=== PATIENT | female | born 1960 | race Caucasian/White ===

== ENCOUNTER 2017-01-24 11:58 | Emergency (ER) | payer MEDICARE, OTHER ==
[2017-01-24 12:07] VITALS: RESP 18
--- NOTE | 2017-01-24 12:19 | ED ---
Back Pain HPI - General Chief Complaint: Back Pain/Injury Stated Complaint: syncope,back pain Time Seen by Provider: 01/24/17 12:08 Source: patient, RN notes reviewed - History of Present Illness Initial Comments: 56 yo female presents to the ER with cc of back pain and syncope. Patient states that over the last week she's had 4 syncopal episodes. Patient states she'll feel herself if lightheaded and she tries to brace herself but she has passed out to the point that she said her head. Patient states that due to the falls or chronic back pain and neck pain has also flared up. Patient states she does have a mild headache as well. Patient states there is no chest pain or shortness of breath before this falls. Patient states it just lightheadedness and then she passes out. Patient states she's been eating and drinking well there is been no nausea or vomiting. Patient states that she does suffer from chronic back pain she takes Percocet for this. Patient states that she feels as if this Is not like her typical back pain is just flared up. Patient states she was concerned due to her symptoms so she thought that she should be evaluated. Patient denies any recent fever, chills, shortness of breath, chest pain, abdominal pain, nausea vomiting, numbness or tingling, dysuria or hematuria, constipation or diarrhea, visual changes, or any other current symptoms. - Related Data Home Medications Medication Instructions Recorded Confirmed ALPRAZolam [Xanax] 2 mg PO TID PRN 01/24/17 01/24/17 ARIPiprazole [Abilify] 15 mg PO HS 01/24/17 01/24/17 Albuterol Inhaler [Ventolin Hfa 1 - 2 puff INHALATION RT-Q6H PRN 01/24/17 Inhaler] Amitriptyline HCl [Elavil] 50 mg PO HS 01/24/17 01/24/17 Atorvastatin Calcium [Lipitor] 10 mg PO HS 01/24/17 01/24/17 Losartan [Cozaar] 50 mg PO DAILY 01/24/17 01/24/17 oxyCODONE-APAP 10-325MG [Percocet 1 tab PO Q6HR PRN 01/24/17 01/24/17 10-325 mg] Allergies Allergy/AdvReac Type Severity Reaction Status Date / Time Penicillins Allergy Rash/Hives Verified 01/24/17 12:19 Review of Systems ROS Statement: Those systems with pertinent positive or pertinent negative responses have been documented in the HPI. ROS Other: All systems not noted in ROS Statement are negative. Past Medical History Past Medical History: Hyperlipidemia, Hypertension History of Any Multi-Drug Resistant Organisms: None Reported Past Surgical History: Section Additional Past Surgical History / Comment(s): LEFT ARM SX POST TRAUMATIC INJURY Past Psychological History: Bipolar Smoking Status: Current every day smoker Past Alcohol Use History: Occasional Past Drug Use History: None Reported General Exam - General Exam Comments Initial Comments: General: The patient is awake and alert, in no distress, and does not appear acutely ill. Eye: Pupils are equal, round and reactive to light, extra-ocular movements are intact; there is normal conjunctiva bilaterally. No signs of icterus. Ears, nose, mouth and throat: There are moist mucous membranes and no oral lesions. Neck: The neck is supple, there is no tenderness. Cardiovascular: There is a regular rate and rhythm. No murmur, rub or gallop is appreciated. Respiratory: Lungs are clear to auscultation, respirations are non-labored, breath sounds are equal. No wheezes, stridor, rales, or rhonchi. Gastrointestinal: Soft, non-distended, non-tender abdomen without masses or organomegaly noted. There is no rebound or guarding present. No CVA tenderness. Bowel sounds are unremarkable. Back: There is no tenderness to palpation in the midline. There is no obvious deformity. No rashes noted. Musculoskeletal: Normal ROM, no tenderness, There is no pedal edema. There is no calf tenderness or swelling. Sensation intact. Pulses equal bilaterally 2+. Neurological: CN II-XII intact, There are no obvious motor or sensory deficits. Coordination appears grossly intact. Speech is normal. Skin: Skin is warm and dry and no rashes or lesions are noted. Psychiatric: Cooperative, appropriate mood & affect, normal judgment. Course Vital Signs 01/24/17 01/24/17 01/24/17 12:02 14:04 14:44 Temperature 97.3 F L 97.0 F L Pulse Rate 78 65 Pulse Rate [ 67 Right Sitting Pulse Oximetery ] Pulse Rate [ 68 Right Standing Pulse Oximetery ] Pulse Rate [ 65 Right Supine Pulse Oximetery ] Respiratory 18 18 Rate Blood Pressure 110/72 131/83 Blood Pressure 137/84 [Right Radial Artery Sitting] Blood Pressure 128/76 [Right Radial Artery Standing ] Blood Pressure 157/74 [Right Radial Artery Supine] O2 Sat by Pulse 99 98 99 Oximetry 01/24/17 15:39 Temperature Pulse Rate Pulse Rate [ 68 Right Sitting Pulse Oximetery ] Pulse Rate [ 67 Right Standing Pulse Oximetery ] Pulse Rate [ 66 Right Supine Pulse Oximetery ] Respiratory Rate Blood Pressure Blood Pressure 177/77 [Right Radial Artery Sitting] Blood Pressure 179/77 [Right Radial Artery Standing ] Blood Pressure 152/77 [Right Radial Artery Supine] O2 Sat by Pulse Oximetry Medical Decision Making - Medical Decision Making 56-year-old female presents emergency Department chief complaint of syncopal episodes. At this time patient was found have some orthostatic changes. We give the patient a fluid bolus and these did improve. We discussed case a Dr. Daksha nixon states that he will follow-up with patient patient agreed. This time we'll discharge the patient for follow-up. We did discuss with patient that she is abusing cocaine. Patient does not deny this. Patient states that she has not used recently however it is not drug screen. We did discuss about the importance of quitting drugs and how this could be contributing to his symptoms. We discussed that she is dehydrated. Discussed all the questions. She states she understood and she is given the plan. She will be discharged. - Lab Data Result diagrams: 01/24/17 12:53 01/24/17 12:53 Lab Results 01/24/17 01/24/17 01/24/17 Range/Units 12:45 12:53 12:53 WBC 8.5 (3.8-10.6) k/uL RBC 4.22 (3.80-5.40) m/uL Hgb 12.8 (11.4-16.0) gm/dL Hct 38.7 (34.0-46.0) % MCV 91.7 (80.0-100.0) fL MCH 30.3 (25.0-35.0) pg MCHC 33.1 (31.0-37.0) g/dL RDW 13.1 (11.5-15.5) % Plt Count 268 (150-450) k/uL Neutrophils % 57 % Lymphocytes % 35 % Monocytes % 4 % Eosinophils % 2 % Basophils % 0 % Neutrophils # 4.9 (1.3-7.7) k/uL Lymphocytes # 2.9 (1.0-4.8) k/uL Monocytes # 0.4 (0-1.0) k/uL Eosinophils # 0.2 (0-0.7) k/uL Basophils # 0.0 (0-0.2) k/uL PT 10.8 (9.0-12.0) sec INR 1.1 (<1.1) APTT 27.2 (22.0-30.0) sec Sodium (137-145) mmol/L Potassium (3.5-5.1) mmol/L Chloride (98-107) mmol/L Carbon Dioxide (22-30) mmol/L Anion Gap mmol/L BUN (7-17) mg/dL Creatinine (0.52-1.04) mg/dL Est GFR (MDRD) Af Amer (>60 ml/min/1.73 sqM) Est GFR (MDRD) Non-Af (>60 ml/min/1.73 sqM) Glucose (74-99) mg/dL Calcium (8.4-10.2) mg/dL Magnesium (1.6-2.3) mg/dL Total Bilirubin (0.2-1.3) mg/dL AST (14-36) U/L ALT (9-52) U/L Alkaline Phosphatase (38-126) U/L Total Creatine Kinase (30-135) U/L CK-MB (CK-2) (0.0-2.4) ng/mL CK-MB (CK-2) Rel Index Troponin I (0.000-0.034) ng/mL Total Protein (6.3-8.2) g/dL Albumin (3.5-5.0) g/dL Urine Color Colorless Urine Appearance Clear (Clear) Urine pH 6.5 (5.0-8.0) Ur Specific [place] 1.001 (1.001-1.035) Urine Protein Negative (Negative) Urine Glucose (UA) Negative (Negative) Urine Ketones Negative (Negative) Urine Blood Negative (Negative) Urine Nitrite Negative (Negative) Urine Bilirubin Negative (Negative) Urine Urobilinogen <2.0 (<2.0) mg/dL Ur Leukocyte Esterase Negative (Negative) Urine Opiates Screen Not Detected (NotDetected) Ur Oxycodone Screen Not Detected (NotDetected) Urine Methadone Screen Not Detected (NotDetected) Ur Propoxyphene Screen Not Detected (NotDetected) Ur Barbiturates Screen Not Detected (NotDetected) U Tricyclic Antidepress Detected H (NotDetected) Ur Phencyclidine Scrn Not Detected (NotDetected) Ur Amphetamines Screen Not Detected (NotDetected) U Methamphetamines Scrn Not Detected (NotDetected) U Benzodiazepines Scrn Detected H (NotDetected) Urine Cocaine Screen Detected H (NotDetected) U Marijuana (THC) Screen Not Detected (NotDetected) 01/24/17 01/24/17 Range/Units 12:53 12:53 WBC (3.8-10.6) k/uL RBC (3.80-5.40) m/uL Hgb (11.4-16.0) gm/dL Hct (34.0-46.0) % MCV (80.0-100.0) fL MCH (25.0-35.0) pg MCHC (31.0-37.0) g/dL RDW (11.5-15.5) % Plt Count (150-450) k/uL Neutrophils % % Lymphocytes % % Monocytes % % Eosinophils % % Basophils % % Neutrophils # (1.3-7.7) k/uL Lymphocytes # (1.0-4.8) k/uL Monocytes # (0-1.0) k/uL Eosinophils # (0-0.7) k/uL Basophils # (0-0.2) k/uL PT (9.0-12.0) sec INR (<1.1) APTT (22.0-30.0) sec Sodium 134 L (137-145) mmol/L Potassium 3.6 (3.5-5.1) mmol/L Chloride 98 (98-107) mmol/L Carbon Dioxide 27 (22-30) mmol/L Anion Gap 9 mmol/L BUN 4 L (7-17) mg/dL Creatinine 0.54 (0.52-1.04) mg/dL Est GFR (MDRD) Af Amer >60 (>60 ml/min/1.73 sqM) Est GFR (MDRD) Non-Af >60 (>60 ml/min/1.73 sqM) Glucose 86 (74-99) mg/dL Calcium 8.9 (8.4-10.2) mg/dL Magnesium 1.5 L (1.6-2.3) mg/dL Total Bilirubin 0.4 (0.2-1.3) mg/dL AST 13 L (14-36) U/L ALT 17 (9-52) U/L Alkaline Phosphatase 106 (38-126) U/L Total Creatine Kinase 32 (30-135) U/L CK-MB (CK-2) 0.3 (0.0-2.4) ng/mL CK-MB (CK-2) Rel Index 0.9 Troponin I <0.012 (0.000-0.034) ng/mL Total Protein 6.7 (6.3-8.2) g/dL Albumin 3.8 (3.5-5.0) g/dL Urine Color Urine Appearance (Clear) Urine pH (5.0-8.0) Ur Specific [place] (1.001-1.035) Urine Protein (Negative) Urine Glucose (UA) (Negative) Urine Ketones (Negative) Urine Blood (Negative) Urine Nitrite (Negative) Urine Bilirubin (Negative) Urine Urobilinogen (<2.0) mg/dL Ur Leukocyte Esterase (Negative) Urine Opiates Screen (NotDetected) Ur Oxycodone Screen (NotDetected) Urine Methadone Screen (NotDetected) Ur Propoxyphene Screen (NotDetected) Ur Barbiturates Screen (NotDetected) U Tricyclic Antidepress (NotDetected) Ur Phencyclidine Scrn (NotDetected) Ur Amphetamines Screen (NotDetected) U Methamphetamines Scrn (NotDetected) U Benzodiazepines Scrn (NotDetected) Urine Cocaine Screen (NotDetected) U Marijuana (THC) Screen (NotDetected) - EKG Data -: EKG Interpreted by Me 01/24/17 15:33 normal sinus rhythm 73 bpm, normal axis, no atopy, no S-T depressions or elevations, Disposition Clinical Impression: Drug abuse, Dehydration Disposition: HOME SELF-CARE Condition: Stable Instructions: Dehydration (ED) Additional Instructions: Please use medication as discussed. Please follow up with family doctor if symptoms have not improved over the next two days. Please return to the emergency room if your symptoms increase or worsen or for any other concerns. Referrals: Demetrio Crooks MD [Primary Care Provider] - 1-2 days Time of Disposition: 15:47
[2017-01-24 13:06] LABS: Appearance,Urine Clear (Clear); Bilirubin,Urine Negative (Negative); Glucose,Urine (UA) Negative (Negative); Ketones,Urine Negative (Negative); Leukocyte Esterase,Urine Negative (Negative); Nitrite,Urine Negative (Negative); PH, Urine 6.5 (5.0-8.0); Protein,Urine Negative (Negative); UA Billing (MACRO vs. MICRO) CHEM; Urobilinogen,Urine <2.0 mg/dL (<2.0)
[2017-01-24 13:14] LABS: Basophils % (A) 0 %; CH 30.7; CHCM 33.7; Eosinophils # (A) 0.2 k/uL (0-0.7); Eosinophils % (A) 2 %; HCT 38.7 % (34.0-46.0); HDW 2.23; HGB 12.8 gm/dL (11.4-16.0); Luc # (Auto) 0.14; Luc % (Auto) 2; Lymphocytes # (A) 2.9 k/uL (1.0-4.8); Lymphocytes % (A) 35 %; MCH 30.3 pg (25.0-35.0); MCHC 33.1 g/dL (31.0-37.0); MCV 91.7 fL (80.0-100.0); Mean Platelet Volume 7.2; Monocytes # (A) 0.4 k/uL (0-1.0); Monocytes % (A) 4 %; Neutrophils # (A) 4.9 k/uL (1.3-7.7); Neutrophils % (A) 57 %; RBC 4.22 m/uL (3.80-5.40); RDW 13.1 % (11.5-15.5); WBC 8.5 k/uL (3.8-10.6)
[2017-01-24 13:24] LABS: ALT 17 U/L (9-52); AST 13 U/L (14-36); Alkaline Phosphatase 106 U/L (38-126); Anion Gap 9 mmol/L; Blood Urea Nitrogen 4 mg/dL (7-17); Calcium 8.9 mg/dL (8.4-10.2); Carbon Dioxide 27 mmol/L (22-30); Chloride 98 mmol/L (98-107); Glucose 86 mg/dL (74-99); Magnesium 1.5 mg/dL (1.6-2.3); Non-African American GFR(MDRD) >60 (>60 ml/min/1.73 sqM); Potassium 3.6 mmol/L (3.5-5.1); Sodium 134 mmol/L (137-145); Total Bilirubin 0.4 mg/dL (0.2-1.3); Total Protein 6.7 g/dL (6.3-8.2)
[2017-01-24 13:27] LABS: Creatine Kinase 32 U/L (30-135); INR 1.1 (<1.1); Partial Thromboplastin Time 27.2 sec (22.0-30.0); Prothrombin Time 10.8 sec (9.0-12.0)
[2017-01-24 13:27] LABS: Specific Gravity,Urine 1.001 (1.001-1.035)
[2017-01-24 13:40] LABS: Creatine Kinase MB 0.3 ng/mL (0.0-2.4); Troponin I <0.012 ng/mL (0.000-0.034)
[2017-01-24 14:05] VITALS: TEMP 97
--- NOTE | 2017-01-24 14:19 | XR ---
EXAMINATION TYPE: XR lumbar spine 2 or 3V DATE OF EXAM: 01/24/2017 1:41 PM COMPARISON: NONE HISTORY: 56-year-old female low back pain after fall today TECHNIQUE: 3 views FINDINGS: Slight levoconvex curvature. Hypertrophic facet arthropathy mid to lower lumbar spine. Mild degenerat allyson disc disease in the mid to lower lumbar spine characterized by mild disc interspace narrowing. Ve rtebral body heights are preserved and alignment is maintained. 8 mm calcification left mid abdomen and a 2 mm calcification right mid abdomen. IMPRESSION: 1. Facet arthropathy mid to lower lumbar spine. No vertebral compression collapse or malalignment. 2. Suspect bilateral nephrolithiasis measuring up to 8 mm on the left.
--- NOTE | 2017-01-24 14:21 | CT ---
EXAMINATION TYPE: CT brain cspine wo con DATE OF EXAM: 01/24/2017 1:40 PM COMPARISON: CT brain December 25, 2012. CT cervical spine June 17, 2011. HISTORY: Syncope, back pain per patient. Headache and neck pain per order. CT DLP: 1655 mGycm. Automated Exposure Control for Dose Reduction was Utilized. TECHNIQUE: CT scan of the head and cervical spine are performed without contrast. FINDINGS: There is no acute intracranial hemorrhage, mass effect, or midline shift identified. The ventricles and sulci are within normal limits in size. The globes are intact and the visualized sin uses are clear. Low-lying right cerebellar tonsil on axial image 2 into foramen magnum is unchanged f rom prior study. Cervical spine is visualized in its entirety from C1 through upper thoracic levels and demonstrates s traightened alignment without evidence of acute fracture or dislocation. Prevertebral soft tissue ap pears within normal limits. The C1-C2 articulation is within normal limits on the coronal images. Vertebral body heights are maintained. There is persistent mild to moderate disc space narrowing with moderate spurring at C4-C5 through C6-C7 levels. There are posterior spur disc complexes effacing an terior thecal sac at these levels. Progression in degenerative findings from prior study is noted. Review of axial images shows additional marginal spurring contributing to [id number] left gre ater than right neural foraminal narrowing at C5-C6 level on axial image 48. Motion artifact at level of lung apices is present. Underlying emphysematous change is likely present. IMPRESSION: 1. There is no acute fracture or dislocation evident in the cervical spine. Straightening of cervical spine with moderate multilevel degenerative changes mid to lower lumbar levels redemonstrated, progr ession in findings from [address] CT noted. 2. No acute intracranial hemorrhage, mass effect, or midline shift is seen. No significant change fro m prior CT.
[2017-01-24] MEDS ORDERED: SODIUM CHLORIDE 0.9% 1,000 ML IV STA (14:34)
[2017-01-24 15:40] VITALS: BP 152/77; PULSE 66
== END 2017-01-24 16:12 | disposition home or self-care (01) ==
LOC: EC 11:58
DX: F14.10 Cocaine abuse, uncomplicated (principal); E86.0 Dehydration; R51 Headache; M54.2 Cervicalgia; M54.9 Dorsalgia, unspecified; E78.5 Hyperlipidemia, unspecified; I10 Essential (primary) hypertension; F31.9 Bipolar disorder, unspecified; F17.200 Nicotine dependence, unspecified, uncomplicated; Z79.899 Other long term (current) drug therapy; Z88.0 Allergy status to penicillin
CPT/HCPCS: 36415; 70450; 72100; 72125; 80053; 80306; 81003; 82550; 82553; 83735; 84484; 85025; 85610; 85730; 87086; 93005; 99284

== ENCOUNTER → 2017-05-18 | Outpatient (CLI) | payer MEDICARE, OTHER ==
[2017-05-18 17:55] LABS: CH 32.4; CHCM 36.2; HCT 37.8 % (34.0-46.0); HGB 13.2 gm/dL (11.4-16.0); MCH 31.3 pg (25.0-35.0); MCHC 34.8 g/dL (31.0-37.0); MCV 89.8 fL (80.0-100.0); Mean Platelet Volume 7.1; RBC 4.21 m/uL (3.80-5.40); RDW 12.9 % (11.5-15.5); WBC 8.3 k/uL (3.8-10.6)
[2017-05-18 18:17] LABS: ALT 32 U/L (9-52); AST 23 U/L (14-36); Alkaline Phosphatase 135 U/L (38-126); Anion Gap 11 mmol/L; Blood Urea Nitrogen 4 mg/dL (7-17); Calcium 10.2 mg/dL (8.4-10.2); Carbon Dioxide 26 mmol/L (22-30); Chloride 96 mmol/L (98-107); Glucose 112 mg/dL (74-99); Non-African American GFR(MDRD) >60 (>60 ml/min/1.73 sqM); Sodium 133 mmol/L (137-145); Total Bilirubin 0.3 mg/dL (0.2-1.3); Total Protein 7.5 g/dL (6.3-8.2)
[2017-05-18 20:21] LABS: Hemoglobin A1C 6.7 % (4.2-6.1)
== END | disposition home or self-care (01) ==
LOC: LABWHC1 16:45
PROVIDERS: ATTEND Physician Assistant
DX: G89.29 Other chronic pain (principal); R63.5 Abnormal weight gain; Z51.81 Encounter for therapeutic drug level monitoring
CPT/HCPCS: 36415; 80053; 83036; 84439; 84443; 84480; 85027

== ENCOUNTER 2017-06-13 09:12 | Day surgery (SDC) | payer MEDICARE, OTHER ==
[2017-06-10 12:21] VITALS: BMI 26.4
[~2017-06-13 09:12] MED LIST: LACTATED RINGERS 1,000 ML IV SCH
[2017-06-13 09:23] VITALS: RESP 16; TEMP 98.3
[2017-06-13] MEDS ORDERED: PROPOFOL 10 MG/ML 20 ML VIAL IV ONE (10:22)
--- NOTE | 2017-06-13 10:26 | P.GSHP ---
History of Present Illness H&P Date: 06/13/17 Chief Complaint: GI bleed This is a 56-year-old female referred from Amarjit Au PA-C. She's had issues with GI bleed. She does today for colonoscopy Past Medical History Past Medical History: Hyperlipidemia, Hypertension Additional Past Medical History / Comment(s): BACK PAIN, SCOLIOSIS, HX OF COLON POLYPS. History of Any Multi-Drug Resistant Organisms: None Reported Past Surgical History: Appendectomy, Section, Orthopedic Surgery Additional Past Surgical History / Comment(s): LEFT ARM (POST TRAUMATIC INJURY) , RIGHT FOOT X3, LEFT KNEE ARTHROSCOPY Past Anesthesia/Blood Transfusion Reactions: No Reported Reaction Past Psychological History: Anxiety, Bipolar, Depression, Panic Disorder Smoking Status: Former smoker Past Alcohol Use History: None Reported Additional Past Alcohol Use History / Comment(s): QUIT SMOKING 1 YEAR AGO. SMOKED 1 PPD . SMOKED 15 YEARS. Past Drug Use History: None Reported - Past Family History Mother Family Medical History: No Reported History Medications and Allergies Home Medications Medication Instructions Recorded Confirmed Type ARIPiprazole [Abilify] 15 mg PO HS 01/24/17 06/13/17 History Amitriptyline HCl [Elavil] 50 mg PO HS 01/24/17 06/13/17 History Losartan [Cozaar] 50 mg PO DAILY 01/24/17 06/13/17 History Atorvastatin [Lipitor] 20 mg PO DAILY 06/10/17 06/13/17 History OXcarbazepine [Trileptal] 150 mg PO BID 06/10/17 06/13/17 History QUEtiapine [SEROquel] 50 mg PO BID 06/10/17 06/13/17 History busPIRone HCL 5 mg PO BID 06/10/17 06/13/17 History hydrOXYzine HCL 25 mg PO Q12HR PRN 06/10/17 06/13/17 History Allergies Allergy/AdvReac Type Severity Reaction Status Date / Time Penicillins Allergy Rash/Hives Verified 06/13/17 09:24 Surgical - Exam Vital Signs Temp Pulse Resp BP Pulse Ox 98.3 F 63 16 101/69 100 06/13/17 09:21 06/13/17 09:21 06/13/17 09:21 06/13/17 09:21 06/13/17 09:21 - General well developed, no distress - Eyes PERRL - ENT normal pinna - Neck no masses - Respiratory normal expansion - Cardiovascular Rhythm: regular - Abdomen Abdomen: soft, non tender Assessment and Plan Plan: Family. We'll perform colonoscopy.
--- NOTE | 2017-06-13 10:41 | P.OP ---
Date of Procedure: 06/13/17 Preoperative Diagnosis: GI bleed Postoperative Diagnosis: Internal and external hemorrhoids Diverticulosis Procedure(s) Performed: Colonoscopy Anesthesia: MAC Surgeon: Marcelino Montgomery Pathology: other (Rectal polyp) Condition: stable Disposition: PACU Description of Procedure: The patient's placed on the endoscopy table in the lateral position. She received IV sedation. Digital rectal exam was performed which revealed internal and external hemorrhoids. The flexible colonoscope was then placed patient anus and passed throughout the entire colon. The ileocecal valve was visualized. Cecum, ascending and transverse colon appeared normal. The descending; there were no polyps or diverticula seen. The scope was then brought back the rectum and there was a small sessile polyp. This removed the forcep. Scope was withdrawn the patient. The anus was examined and there were internal and external was noted. Scope was withdrawn for patient.
[2017-06-13 11:17] VITALS: BP 111/68; PULSE 59
== END 2017-06-13 11:25 | disposition home or self-care (01) ==
LOC: ORWHC2ENDO 09:12
PROVIDERS: ATTEND Surgery
DX: K62.1 Rectal polyp (principal); K64.8 Other hemorrhoids; K64.4 Residual hemorrhoidal skin tags; K57.30 Diverticulosis of large intestine without perforation or abscess without bleeding; Z86.010 Personal history of colon polyps; Z87.891 Personal history of nicotine dependence; E78.5 Hyperlipidemia, unspecified; I10 Essential (primary) hypertension; F32.9 Major depressive disorder, single episode, unspecified; F41.9 Anxiety disorder, unspecified; F31.9 Bipolar disorder, unspecified; F41.0 Panic disorder [episodic paroxysmal anxiety]; Z79.899 Other long term (current) drug therapy; Z88.0 Allergy status to penicillin
CPT/HCPCS: 88305; 45380; J2704

== ENCOUNTER 2017-06-20 16:35 | Emergency (ER) | payer MEDICARE, OTHER ==
[2017-06-20 17:16] VITALS: RESP 18; TEMP 98
[2017-06-20] MEDS ORDERED: MORPHINE SULFATE 2 MG/ML SYRINGE IVP STA (20:41)
[2017-06-20] MEDS ORDERED: SODIUM CHLORIDE 0.9% 1,000 ML IV STA (20:41)
--- NOTE | 2017-06-20 21:15 | ED ---
Recheck HPI - General Source: patient, RN notes reviewed, old records reviewed Mode of arrival: ambulatory Limitations: no limitations <Gwen Allen - Last Filed: 06/21/17 13:08> <Joe Vides - Last Filed: 06/29/17 22:20> - General Chief Complaint: Recheck/Abnormal Lab/Rx Stated Complaint: Post op hemorrhoid surgery today/issues Time Seen by Provider: 06/20/17 20:27 - History of Present Illness Initial Comments: 56-year-old female chief complaint of stool incontinence and had urinary retention 8 hours after hemorrhoidectomy surgery by Dr. Montgomery. Patient reports that she had 3:00 she started to have loose stools. She reports that she also felt like she is unable to urinate. She attempted many times and is unable to. She denies any numbness or tingling in her groin area. She reports that she has significant pain in her rectum, she also relates that she usually takes percocet but was writtenf or Lowry and it is not helping. She reports she's felt chilled. Denies any nausea or vomiting. She states that she has had loose stools. (Gwen Allen) - Related Data Home Medications Medication Instructions Recorded Confirmed ARIPiprazole [Abilify] 15 mg PO HS 01/24/17 06/21/17 Amitriptyline HCl [Elavil] 50 mg PO HS 01/24/17 06/21/17 Losartan [Cozaar] 50 mg PO DAILY 01/24/17 06/21/17 Atorvastatin [Lipitor] 20 mg PO DAILY 06/10/17 06/21/17 QUEtiapine [SEROquel] 100 mg PO HS 06/10/17 06/21/17 busPIRone HCL 5 mg PO BID 06/10/17 06/21/17 hydrOXYzine HCL 25 mg PO Q12HR PRN 06/10/17 06/21/17 HYDROcodone/APAP 7.5-325MG [[place] 1 tab PO Q4H PRN 06/20/17 06/21/17 7.5] oxyCODONE-APAP 10-325MG [Percocet 1 tab PO Q6HR PRN 06/21/17 06/21/17 10-325 mg] Previous Rx's Medication Instructions Recorded Docusate [Colace] 100 mg PO BID #20 capsule 06/20/17 Allergies Allergy/AdvReac Type Severity Reaction Status Date / Time Penicillins Allergy Rash/Hives/ Verified 06/21/17 15:40 Itching Review of Systems ROS Other: All systems not noted in ROS Statement are negative. <AlejandroGwen - Last Filed: 06/21/17 13:08> ROS Other: All systems not noted in ROS Statement are negative. <Joe Vides - Last Filed: 06/29/17 22:20> ROS Statement: Those systems with pertinent positive or pertinent negative responses have been documented in the HPI. Past Medical History Past Medical History: Hyperlipidemia, Hypertension Additional Past Medical History / Comment(s): occ migraines, hemorrhoids, degenerative disks L4 and L5 History of Any Multi-Drug Resistant Organisms: None Reported Past Surgical History: Appendectomy, Section, Orthopedic Surgery Additional Past Surgical History / Comment(s): LEFT ARM (POST TRAUMATIC INJURY) reattached, RIGHT FOOT X3, LEFT KNEE ARTHROSCOPY, left oophorectomy Past Anesthesia/Blood Transfusion Reactions: No Reported Reaction Past Psychological History: Anxiety, Bipolar, Depression, Panic Disorder Smoking Status: Former smoker - Past Family History Mother Family Medical History: No Reported History <Gwen Allen - Last Filed: 06/21/17 13:08> General Exam Limitations: no limitations General appearance: alert, in no apparent distress Head exam: Present: atraumatic, normocephalic, normal inspection Eye exam: Present: normal appearance ENT exam: Present: normal exam, mucous membranes moist Neck exam: Present: normal inspection. Absent: tenderness, meningismus, lymphadenopathy Respiratory exam: Present: normal lung sounds bilaterally. Absent: respiratory distress, wheezes, rales, rhonchi, stridor Cardiovascular Exam: Present: regular rate, normal rhythm, normal heart sounds. Absent: systolic murmur, diastolic murmur, rubs, gallop, clicks GI/Abdominal exam: Present: soft, normal bowel sounds. Absent: distended, tenderness, guarding, rebound, rigid Rectal exam: Present: normal rectal tone, hemorrhoids, other (Patient has normal sensation within groin area, Normal rectal tone. There is pain and tenderness to hemorroids ). Absent: normal inspection, decreased rectal tone, heme (-) stool Extremities exam: Present: normal inspection, full ROM, normal capillary refill. Absent: tenderness, pedal edema, joint swelling, calf tenderness Back exam: Present: normal inspection Neurological exam: Present: alert, oriented X3, CN II-XII intact Psychiatric exam: Present: normal affect, normal mood Skin exam: Present: warm <Gwen Allen - Last Filed: 06/21/17 13:08> <Joe Vides - Last Filed: 06/29/17 22:20> - General Exam Comments Initial Comments: 56-year-old female. Patient appears to be in moderate discomfort. (Gwen Allen) Vital Signs 06/20/17 06/20/17 17:13 23:07 Temperature 98.0 F Pulse Rate 102 H 90 Respiratory 18 18 Rate Blood Pressure 149/86 153/79 O2 Sat by Pulse 96 97 Oximetry Medical Decision Making - Lab Data Result diagrams: 06/20/17 21:39 06/20/17 21:39 <Gwen Allen - Last Filed: 06/21/17 13:08> - Lab Data Result diagrams: 06/20/17 21:39 06/20/17 21:39 <Joe Vides - Last Filed: 06/29/17 22:20> - Medical Decision Making This is a 56 year old female with urinary retention and loose stools after hemorroidectomy surgery today. PAtient has normal rectal tone, able to ambulate and has no saddle anesthesias. Patient bladderscan shows 500 cc, and patient was straight catheterized. Given pyridium for bladder spasming. Patient was able to urinate once afterward, I believe this is acute urinary retnention relatd to recent surgery and catheterization. Patient case discussed with Dr. Vides, discussed that patient pain is not managed with Lowry as she regularly takes percocet. Patient was also examined by Dr. Vides. She has no changes in blood work and urinalysis is negative for uti. Patient will be discarged with close follow up with Dr. Montgomery, and return paramters discussed. (Gwen Allen) I saw this patient in conjunction with the physician child development assistant. I performed independent history and physical exam. Agree with case management. (Joe Vides) - Lab Data Lab Results 06/20/17 06/20/17 06/20/17 Range/Units 21:39 21:39 21:50 WBC 10.3 (3.8-10.6) k/uL RBC 4.35 (3.80-5.40) m/uL Hgb 13.6 (11.4-16.0) gm/dL Hct 41.4 (34.0-46.0) % MCV 95.2 D (80.0-100.0) fL MCH 31.3 (25.0-35.0) pg MCHC 32.8 (31.0-37.0) g/dL RDW 13.5 (11.5-15.5) % Plt Count 313 (150-450) k/uL Neutrophils % 77 % Lymphocytes % 18 % Monocytes % 4 % Eosinophils % 0 % Basophils % 0 % Neutrophils # 7.9 H (1.3-7.7) k/uL Lymphocytes # 1.8 (1.0-4.8) k/uL Monocytes # 0.5 (0-1.0) k/uL Eosinophils # 0.0 (0-0.7) k/uL Basophils # 0.0 (0-0.2) k/uL Sodium 139 (137-145) mmol/L Potassium 3.6 (3.5-5.1) mmol/L Chloride 103 (98-107) mmol/L Carbon Dioxide 22 (22-30) mmol/L Anion Gap 14 mmol/L BUN 9 (7-17) mg/dL Creatinine 0.70 (0.52-1.04) mg/dL Est GFR (MDRD) Af Amer >60 (>60 ml/min/1.73 sqM) Est GFR (MDRD) Non-Af >60 (>60 ml/min/1.73 sqM) Glucose 137 H (74-99) mg/dL Calcium 10.3 H (8.4-10.2) mg/dL Total Bilirubin 0.4 (0.2-1.3) mg/dL AST 21 (14-36) U/L ALT 34 (9-52) U/L Alkaline Phosphatase 156 H (38-126) U/L Total Protein 7.4 (6.3-8.2) g/dL Albumin 4.4 (3.5-5.0) g/dL Amylase <30 L (30-110) U/L Lipase 70 (23-300) U/L Urine Color Light Yellow Urine Appearance Cloudy H (Clear) Urine pH 8.0 (5.0-8.0) Ur Specific [place] 1.008 (1.001-1.035) Urine Protein Negative (Negative) Urine Glucose (UA) Negative (Negative) Urine Ketones Negative (Negative) Urine Blood Negative (Negative) Urine Nitrite Negative (Negative) Urine Bilirubin Negative (Negative) Urine Urobilinogen <2.0 (<2.0) mg/dL Ur Leukocyte Esterase Negative (Negative) Urine RBC 3 (0-5) /hpf Ur Squamous Epith Cells <1 (0-4) /hpf Amorphous Sediment Rare H (None) /hpf Urine Mucus Rare H (None) /hpf Stool Occult Blood (Negative) 06/20/17 Range/Units 21:50 WBC (3.8-10.6) k/uL RBC (3.80-5.40) m/uL Hgb (11.4-16.0) gm/dL Hct (34.0-46.0) % MCV (80.0-100.0) fL MCH (25.0-35.0) pg MCHC (31.0-37.0) g/dL RDW (11.5-15.5) % Plt Count (150-450) k/uL Neutrophils % % Lymphocytes % % Monocytes % % Eosinophils % % Basophils % % Neutrophils # (1.3-7.7) k/uL Lymphocytes # (1.0-4.8) k/uL Monocytes # (0-1.0) k/uL Eosinophils # (0-0.7) k/uL Basophils # (0-0.2) k/uL Sodium (137-145) mmol/L Potassium (3.5-5.1) mmol/L Chloride (98-107) mmol/L Carbon Dioxide (22-30) mmol/L Anion Gap mmol/L BUN (7-17) mg/dL Creatinine (0.52-1.04) mg/dL Est GFR (MDRD) Af Amer (>60 ml/min/1.73 sqM) Est GFR (MDRD) Non-Af (>60 ml/min/1.73 sqM) Glucose (74-99) mg/dL Calcium (8.4-10.2) mg/dL Total Bilirubin (0.2-1.3) mg/dL AST (14-36) U/L ALT (9-52) U/L Alkaline Phosphatase (38-126) U/L Total Protein (6.3-8.2) g/dL Albumin (3.5-5.0) g/dL Amylase (30-110) U/L Lipase (23-300) U/L Urine Color Urine Appearance (Clear) Urine pH (5.0-8.0) Ur Specific [place] (1.001-1.035) Urine Protein (Negative) Urine Glucose (UA) (Negative) Urine Ketones (Negative) Urine Blood (Negative) Urine Nitrite (Negative) Urine Bilirubin (Negative) Urine Urobilinogen (<2.0) mg/dL Ur Leukocyte Esterase (Negative) Urine RBC (0-5) /hpf Ur Squamous Epith Cells (0-4) /hpf Amorphous Sediment (None) /hpf Urine Mucus (None) /hpf Stool Occult Blood Positive H (Negative) Disposition Time of Disposition: 23:23 <Gwen Allen - Last Filed: 06/21/17 13:08> <Joe Vides - Last Filed: 06/29/17 22:20> Clinical Impression: Rectum pain, Postoperative urinary retention Disposition: HOME SELF-CARE Condition: Good Instructions: Hemorrhoids (ED) Additional Instructions: Advised to call Dr. Sun tomorrow morning. Return to emergency department if any alarming signs or symptoms occur. Referrals: Nonstaff,Physician [Primary Care Provider] - 1-2 days
[2017-06-20 22:05] LABS: Basophils % (A) 0 %; CH 31.6; CHCM 33.3; Eosinophils % (A) 0 %; HCT 41.4 % (34.0-46.0); HDW 2.19; HGB 13.6 gm/dL (11.4-16.0); Luc # (Auto) 0.08; Luc % (Auto) 1; Lymphocytes # (A) 1.8 k/uL (1.0-4.8); Lymphocytes % (A) 18 %; MCH 31.3 pg (25.0-35.0); MCHC 32.8 g/dL (31.0-37.0); Mean Platelet Volume 7.5; Monocytes # (A) 0.5 k/uL (0-1.0); Monocytes % (A) 4 %; Neutrophils # (A) 7.9 k/uL (1.3-7.7); Neutrophils % (A) 77 %; RBC 4.35 m/uL (3.80-5.40); RDW 13.5 % (11.5-15.5); WBC 10.3 k/uL (3.8-10.6); WBC (Perox) 10.38
[2017-06-20 22:10] LABS: MCV 95.2 fL (80.0-100.0)
[2017-06-20 22:14] LABS: ALT 34 U/L (9-52); AST 21 U/L (14-36); Alkaline Phosphatase 156 U/L (38-126); Amylase <30 U/L (30-110); Anion Gap 14 mmol/L; Blood Urea Nitrogen 9 mg/dL (7-17); Calcium 10.3 mg/dL (8.4-10.2); Carbon Dioxide 22 mmol/L (22-30); Chloride 103 mmol/L (98-107); Glucose 137 mg/dL (74-99); Non-African American GFR(MDRD) >60 (>60 ml/min/1.73 sqM); Potassium 3.6 mmol/L (3.5-5.1); Sodium 139 mmol/L (137-145); Total Bilirubin 0.4 mg/dL (0.2-1.3); Total Protein 7.4 g/dL (6.3-8.2)
[2017-06-20 22:14] LABS: Appearance,Urine Cloudy (Clear); Bilirubin,Urine Negative (Negative); Glucose,Urine (UA) Negative (Negative); Ketones,Urine Negative (Negative); Protein,Urine Negative (Negative); Specific Gravity,Urine 1.008 (1.001-1.035)
[2017-06-20 22:15] LABS: Amorphous Sediment,Urine Rare /hpf; Leukocyte Esterase,Urine Negative (Negative); Mucus,Urine Rare /hpf; Nitrite,Urine Negative (Negative); Particle Count 15208; RBC,Urine 3 /hpf (0-5); Squamous Epithelial Cell,Urine <1 /hpf (0-4); UA Billing (MACRO vs. MICRO) MICRO; Urobilinogen,Urine <2.0 mg/dL (<2.0)
[2017-06-20] MEDS ORDERED: PHENAZOPYRIDINE 100 MG TAB PO STA (23:03)
[2017-06-20 23:13] VITALS: BP 153/79; PULSE 90
== END 2017-06-20 23:48 | disposition home or self-care (01) ==
LOC: EC 16:35
DX: K62.89 Other specified diseases of anus and rectum (principal); R33.9 Retention of urine, unspecified; I10 Essential (primary) hypertension; E78.5 Hyperlipidemia, unspecified; F41.0 Panic disorder [episodic paroxysmal anxiety]; F32.9 Major depressive disorder, single episode, unspecified; Z87.891 Personal history of nicotine dependence; Z79.899 Other long term (current) drug therapy; Z88.0 Allergy status to penicillin
CPT/HCPCS: 99284 ×2; 96374 ×2; 51798; 36415; 80053; 82150; 83690; 85025; 82272; 81001; J2270

== ENCOUNTER 2017-06-21 14:51 | Emergency (ER) | payer MEDICARE, OTHER ==
[2017-06-21] MEDS ORDERED: MORPHINE SULFATE 2 MG/ML SYRINGE IVP ONE (15:45)
--- NOTE | 2017-06-21 16:00 | ED ---
Female Urogenital HPI - General Chief complaint: Urogenital Stated complaint: Loss of bowel functions Time Seen by Provider: 06/21/17 15:35 Source: patient Mode of arrival: ambulatory Limitations: no limitations - History of Present Illness Initial comments: Patient presents with acute urinary retention ongoing since last night. Patient states she last urinated when she was in the ER last night. Patient had a hemorrhoidectomy done yesterday morning by Dr. Montgomery. Patient according top report was given IV anesthesia. Patient states she is not given an epidural ordering the injections in her spine. Patient denies saddle anesthesia, lower extremity weakness or numbness, lumbar pain. Patient states she does have pain in her rectum at site of the surgery. Patient states she's had some bowel incontinence only after coughing, other times she has tried to have a bowel movement but no stool come out. Patient denies fevers, chills, nausea, vomiting, trauma to her back. - Related Data Home Medications Medication Instructions Recorded Confirmed ARIPiprazole [Abilify] 15 mg PO HS 01/24/17 06/21/17 Amitriptyline HCl [Elavil] 50 mg PO HS 01/24/17 06/21/17 Losartan [Cozaar] 50 mg PO DAILY 01/24/17 06/21/17 Atorvastatin [Lipitor] 20 mg PO DAILY 06/10/17 06/21/17 QUEtiapine [SEROquel] 100 mg PO HS 06/10/17 06/21/17 busPIRone HCL 5 mg PO BID 06/10/17 06/21/17 hydrOXYzine HCL 25 mg PO Q12HR PRN 06/10/17 06/21/17 HYDROcodone/APAP 7.5-325MG [[place] 1 tab PO Q4H PRN 06/20/17 06/21/17 7.5] oxyCODONE-APAP 10-325MG [Percocet 1 tab PO Q6HR PRN 06/21/17 06/21/17 10-325 mg] Previous Rx's Medication Instructions Recorded Docusate [Colace] 100 mg PO BID #20 capsule 06/20/17 Allergies Allergy/AdvReac Type Severity Reaction Status Date / Time Penicillins Allergy Rash/Hives/ Verified 06/21/17 15:40 Itching Review of Systems ROS Statement: Those systems with pertinent positive or pertinent negative responses have been documented in the HPI. ROS Other: All systems not noted in ROS Statement are negative. Constitutional: Denies: fever, chills, weakness Eyes: Denies: vision change ENT: Denies: throat pain Respiratory: Denies: cough, dyspnea Cardiovascular: Denies: chest pain, palpitations Endocrine: Denies: fatigue Gastrointestinal: Denies: abdominal pain, nausea, vomiting Genitourinary: Reports: other (urinary retention, rectal pain). Denies: hematuria Musculoskeletal: Denies: back pain Skin: Denies: rash Neurological: Denies: weakness, numbness, paresthesias, confusion Past Medical History Past Medical History: Hyperlipidemia, Hypertension Additional Past Medical History / Comment(s): occ migraines, hemorrhoids, degenerative disks L4 and L5 History of Any Multi-Drug Resistant Organisms: None Reported Past Surgical History: Appendectomy, Section, Orthopedic Surgery Additional Past Surgical History / Comment(s): LEFT ARM (POST TRAUMATIC INJURY) reattached, RIGHT FOOT X3, LEFT KNEE ARTHROSCOPY, left oophorectomy Past Anesthesia/Blood Transfusion Reactions: No Reported Reaction Past Psychological History: Anxiety, Bipolar, Depression, Panic Disorder Smoking Status: Former smoker Past Alcohol Use History: None Reported Past Drug Use History: None Reported - Past Family History Mother Family Medical History: No Reported History General Exam - General Exam Comments Initial Comments: Sitting up on side of bed. Appears mildly uncomfortable. Well-appearing. Conversing normally. Calm, pleasant. Limitations: no limitations General appearance: alert Head exam: Present: atraumatic, normocephalic Eye exam: Present: normal appearance, PERRL, EOMI ENT exam: Present: mucous membranes moist, normal external ear exam Neck exam: Present: normal inspection Respiratory exam: Present: normal lung sounds bilaterally. Absent: respiratory distress, wheezes, rales Cardiovascular Exam: Present: regular rate, normal rhythm GI/Abdominal exam: Present: soft. Absent: distended, tenderness, guarding, rebound, rigid Rectal exam: Present: normal rectal tone, tenderness, other (Patient has good rectal tone. Sensation intact. Moderately tender. No blood or active drainage.). Absent: decreased rectal tone, bloody stool Back exam: Present: normal inspection, full ROM. Absent: tenderness, vertebral tenderness Neurological exam: Present: alert, oriented X3. Absent: altered Psychiatric exam: Present: normal affect, normal mood Skin exam: Present: warm, dry, normal color. Absent: rash Course Vital Signs 06/21/17 14:57 Temperature 97.5 F L Pulse Rate 77 Respiratory 18 Rate Blood Pressure 120/58 O2 Sat by Pulse 100 Oximetry Medical Decision Making - Medical Decision Making Patient's symptoms likely secondary to postoperative course from hemorrhoidectomy. Vision signs of cauda equina at this time, patient had no trauma or injections to the spinal canal. Spoke with patient's surgeon Dr. Montgomery, updated patient condition results, he agrees with collado at this time, patient can follow up outpatient. Collado catheter placed, 1200 mL of urine drained. No blood, urine clear yellow. No infection on urinalysis. CBC and BMP have no significant abnormalities. Plan for discharge home, follow up with surgeon and urologist, referrals given. Patient given instructions for Collado catheter care. Recent symptoms likely secondary to hemorrhoid surgery. Updated without results and plan. Patient understands and agrees. All questions answered. Patient states "can you get my papers together and discharge me". Return to ED if new or worsening symptoms. Patient understands and agrees. - Lab Data Result diagrams: 06/21/17 16:53 06/21/17 16:53 Lab Results 06/21/17 06/21/17 06/21/17 Range/Units 16:17 16:53 16:53 WBC 10.5 (3.8-10.6) k/uL RBC 4.09 (3.80-5.40) m/uL Hgb 12.7 (11.4-16.0) gm/dL Hct 38.5 (34.0-46.0) % MCV 94.1 (80.0-100.0) fL MCH 31.1 (25.0-35.0) pg MCHC 33.0 (31.0-37.0) g/dL RDW 12.4 (11.5-15.5) % Plt Count 294 (150-450) k/uL Neutrophils % 52 % Lymphocytes % 41 % Monocytes % 4 % Eosinophils % 1 % Basophils % 0 % Neutrophils # 5.5 (1.3-7.7) k/uL Lymphocytes # 4.3 (1.0-4.8) k/uL Monocytes # 0.4 (0-1.0) k/uL Eosinophils # 0.1 (0-0.7) k/uL Basophils # 0.0 (0-0.2) k/uL Sodium 141 (137-145) mmol/L Potassium 3.6 (3.5-5.1) mmol/L Chloride 106 (98-107) mmol/L Carbon Dioxide 22 (22-30) mmol/L Anion Gap 13 mmol/L BUN 10 (7-17) mg/dL Creatinine 0.77 (0.52-1.04) mg/dL Est GFR (MDRD) Af Amer >60 (>60 ml/min/1.73 sqM) Est GFR (MDRD) Non-Af >60 (>60 ml/min/1.73 sqM) Glucose 107 H (74-99) mg/dL Calcium 9.4 (8.4-10.2) mg/dL Urine Color Dark Yellow Urine Appearance Clear (Clear) Urine pH 6.0 (5.0-8.0) Ur Specific [place] 1.005 (1.001-1.035) Urine Protein Negative (Negative) Urine Glucose (UA) Negative (Negative) Urine Ketones Negative (Negative) Urine Blood Negative (Negative) Urine Nitrite Negative (Negative) Urine Bilirubin Negative (Negative) Urine Urobilinogen <2.0 (<2.0) mg/dL Ur Leukocyte Esterase Negative (Negative) Disposition Clinical Impression: Post surgical complication, Urinary retention Disposition: HOME SELF-CARE Condition: Good Instructions: Coll[place] Catheter Placement and Care (ED), Acute Urinary Retention in Women (ED) Referrals: Simran Green DO [Primary Care Provider] - 1-2 days Yovany Jensen MD [STAFF PHYSICIAN] - 1-2 days Marcelino Montgomery MD [STAFF PHYSICIAN] - 1-2 days
[2017-06-21 16:30] LABS: Appearance,Urine Clear (Clear); Bilirubin,Urine Negative (Negative); Glucose,Urine (UA) Negative (Negative); Ketones,Urine Negative (Negative); Leukocyte Esterase,Urine Negative (Negative); Nitrite,Urine Negative (Negative); Protein,Urine Negative (Negative); Specific Gravity,Urine 1.005 (1.001-1.035); UA Billing (MACRO vs. MICRO) CHEM; Urobilinogen,Urine <2.0 mg/dL (<2.0)
[2017-06-21 17:12] LABS: Basophils % (A) 0 %; CH 31.1; CHCM 33.2; Eosinophils # (A) 0.1 k/uL (0-0.7); Eosinophils % (A) 1 %; HCT 38.5 % (34.0-46.0); HGB 12.7 gm/dL (11.4-16.0); Luc # (Auto) 0.11; Luc % (Auto) 1; Lymphocytes # (A) 4.3 k/uL (1.0-4.8); Lymphocytes % (A) 41 %; MCH 31.1 pg (25.0-35.0); MCV 94.1 fL (80.0-100.0); Mean Platelet Volume 7.5; Monocytes # (A) 0.4 k/uL (0-1.0); Monocytes % (A) 4 %; Neutrophils # (A) 5.5 k/uL (1.3-7.7); Neutrophils % (A) 52 %; RBC 4.09 m/uL (3.80-5.40); RDW 12.4 % (11.5-15.5); WBC 10.5 k/uL (3.8-10.6); WBC (Perox) 10.38
[2017-06-21 17:25] LABS: Anion Gap 13 mmol/L; Blood Urea Nitrogen 10 mg/dL (7-17); Calcium 9.4 mg/dL (8.4-10.2); Carbon Dioxide 22 mmol/L (22-30); Chloride 106 mmol/L (98-107); Glucose 107 mg/dL (74-99); Non-African American GFR(MDRD) >60 (>60 ml/min/1.73 sqM); Potassium 3.6 mmol/L (3.5-5.1); Sodium 141 mmol/L (137-145)
[2017-06-21 17:56] VITALS: BP 120/67; PULSE 80; RESP 20; TEMP 98.2
== END 2017-06-21 17:56 | disposition home or self-care (01) ==
LOC: EC 14:51
DX: T88.9XXA Complication of surgical and medical care, unspecified, initial encounter (principal); R33.9 Retention of urine, unspecified; E78.5 Hyperlipidemia, unspecified; I10 Essential (primary) hypertension; F31.9 Bipolar disorder, unspecified; F41.0 Panic disorder [episodic paroxysmal anxiety]; Z87.891 Personal history of nicotine dependence; Z79.899 Other long term (current) drug therapy; Z88.0 Allergy status to penicillin
CPT/HCPCS: 99284 ×2; 51702 ×2; 96374 ×2; 51798; 36415; 80048; 85025; 81003; 87086; J2270

== ENCOUNTER 2019-02-19 15:26 | Emergency (ER) | payer MEDICARE, OTHER ==
[2019-02-19 16:16] VITALS: BP 161/97; PULSE 114; RESP 18; TEMP 98.9
== END 2019-02-19 21:15 ==
LOC: EC 15:26
DX: Z00.8 Encounter for other general examination (principal)
CPT/HCPCS: 99499

== ENCOUNTER 2019-02-22 23:24 | Inpatient (IN) | payer MEDICARE, MEDICAID ==
--- NOTE | 2019-02-23 00:15 | ED ---
Psych HPI - General Chief Complaint: Psychiatric Symptoms Stated Complaint: Anxiety,Depression Time Seen by Provider: 02/22/19 23:35 Source: patient Mode of arrival: ambulatory - History of Present Illness Initial Comments: This patient is a 58-year-old woman who presents to be evaluated for having mood swings and insomnia. The patient states that she has history of bipolar di sorder and had been doing fairly well for years so she decided to stop using her medications a number of months ago. She states that now she is having a hard time sleeping and states that her moods are high and low. At this point she has not been having suicidal ideation or homicidal ideation. She is denying hallucinations. The patient states she believes she may need to go back on her medications. MD Complaint: other -: week(s) Associated Psychiatric Symptoms: racing thoughts, other (Insomnia) History of same: Yes Quality: getting worse Improves With: none Worsens With: none Context: not taking psychiatric medications Associated Symptoms: insomnia - Related Data Home Medications Medication Instructions Recorded Confirmed ARIPiprazole [Abilify] 15 mg PO HS 01/24/17 06/21/17 Amitriptyline HCl [Elavil] 50 mg PO HS 01/24/17 06/21/17 Losartan [Cozaar] 50 mg PO DAILY 01/24/17 06/21/17 Atorvastatin [Lipitor] 20 mg PO DAILY 06/10/17 06/21/17 QUEtiapine [SEROquel] 100 mg PO HS 06/10/17 06/21/17 busPIRone HCL 5 mg PO BID 06/10/17 06/21/17 hydrOXYzine HCL 25 mg PO Q12HR PRN 06/10/17 06/21/17 HYDROcodone/APAP 7.5-325MG [[place] 1 tab PO Q4H PRN 06/20/17 06/21/17 7.5] oxyCODONE-APAP 10-325MG [Percocet 1 tab PO Q6HR PRN 06/21/17 06/21/17 10-325 mg] Previous Rx's Medication Instructions Recorded Docusate [Colace] 100 mg PO BID #20 capsule 06/20/17 Allergies Allergy/AdvReac Type Severity Reaction Status Date / Time Penicillins Allergy Rash/Hives/ Verified 02/22/19 23:32 Itching Review of Systems ROS Statement: Those systems with pertinent positive or pertinent negative responses have been documented in the HPI. ROS Other: All systems not noted in ROS Statement are negative. Constitutional: Denies: fever, chills Respiratory: Denies: cough, dyspnea Cardiovascular: Denies: chest pain, palpitations Gastrointestinal: Denies: abdominal pain, vomiting Genitourinary: Denies: dysuria Musculoskeletal: Denies: back pain Neurological: Denies: headache Psychiatric: Reports: anxiety. Denies: auditory hallucinations, visual hallucinations, homicidal thoughts, suicidal thoughts Past Medical History Past Medical History: Hyperlipidemia, Hypertension Additional Past Medical History / Comment(s): occ migraines, hemorrhoids, degenerative disks L4 and L5 History of Any Multi-Drug Resistant Organisms: None Reported Past Surgical History: Appendectomy, Section, Orthopedic Surgery Additional Past Surgical History / Comment(s): LEFT ARM (POST TRAUMATIC INJURY) reattached, RIGHT FOOT X3, LEFT KNEE ARTHROSCOPY, left oophorectomy Past Anesthesia/Blood Transfusion Reactions: No Reported Reaction Past Psychological History: Anxiety, Bipolar, Depression, Panic Disorder Smoking Status: Former smoker Past Alcohol Use History: None Reported Past Drug Use History: None Reported - Past Family History Mother Family Medical History: No Reported History General Exam Limitations: no limitations General appearance: alert, in no apparent distress Head exam: Present: atraumatic, normocephalic Eye exam: Present: normal appearance Respiratory exam: Present: normal lung sounds bilaterally. Absent: respiratory distress, wheezes, rales, rhonchi, stridor Cardiovascular Exam: Present: regular rate, normal rhythm, normal heart sounds. Absent: systolic murmur, diastolic murmur, rubs, gallop GI/Abdominal exam: Present: soft. Absent: distended, tenderness, guarding, rebound, rigid Extremities exam: Present: normal inspection, normal capillary refill. Absent: pedal edema, calf tenderness Back exam: Present: normal inspection Neurological exam: Present: alert, oriented X3, normal gait Skin exam: Present: warm, dry, intact, normal color. Absent: rash Course Vital Signs 02/22/19 23:29 Temperature 97.8 F Pulse Rate 90 Respiratory 18 Rate Blood Pressure 157/90 O2 Sat by Pulse 100 Oximetry Disposition Clinical Impression: Bipolar disorder, Insomnia Disposition: ADMITTED IP TO THIS HOSP Condition: Fair Is patient prescribed a controlled substance at d/c from ED?: No Referrals: Kelin Stevenson MD [Primary Care Provider] - 1-2 days
[2019-02-23] MEDS ORDERED: ZIPRASIDONE 20 MG VIAL IM PRN (02:05)
[2019-02-23] MEDS ORDERED: MAG HYDROX/AL HYDROX/SIMETH 30 ML CUP PO PRN (02:05)
[2019-02-23] MEDS ORDERED: LORazepam 1 MG TAB PO PRN ×2 (02:05→09:47)
[2019-02-23] MEDS ORDERED: MAGNESIUM HYDROXIDE 2,400 MG/10 ML CUP PO PRN (02:05)
[2019-02-23 02:06] LABS: Appearance,Urine Clear (Clear); Bilirubin,Urine Negative (Negative); Blood,Urine Negative (Negative); Color,Urine Light Yellow; Glucose,Urine (UA) Negative (Negative); Ketones,Urine Negative (Negative); Leukocyte Esterase,Urine Negative (Negative); Nitrite,Urine Negative (Negative); Protein,Urine Negative (Negative); Specific Gravity,Urine 1.006 (1.001-1.035); Urobilinogen,Urine <2.0 mg/dL (<2.0)
[2019-02-23 02:31] LABS: Amphetamine Screen,Urine Not Detected (NotDetected); Barbiturate Screen,Urine Not Detected (NotDetected); Benzodiazepines Screen,Urine Not Detected (NotDetected); Cocaine Screen,Urine Not Detected (NotDetected); Methadone Screen, Urine Not Detected (NotDetected); Opiate Screen,Urine Not Detected (NotDetected); Oxycodone Screen, Urine Not Detected (NotDetected); Phencyclidine Screen,Urine Not Detected (NotDetected); Tricyclic Antidepressant,Urine Not Detected (NotDetected); Urn Cannabinoid Scrn Not Detected (NotDetected)
[2019-02-23] MEDS: ACETAMINOPHEN TAB 325 MG TAB PO PRN (02:55)
[2019-02-23 03:39] VITALS: BMI 21.5
[2019-02-23 09:49] LABS: ALT <6 U/L (9-52); AST 19 U/L (14-36); African American GFR (CKD) >90 (>60 ml/min/1.73 sqM); Albumin 4.4 g/dL (3.5-5.0); Alkaline Phosphatase 117 U/L (38-126); Anion Gap 9 mmol/L; Bilirubin, Delta 0.2 mg/dL (0.0-0.2); Bilirubin,Unconjugated 0.3 mg/dL (0.0-1.1); Blood Urea Nitrogen 10 mg/dL (7-17); Calcium 9.8 mg/dL (8.4-10.2); Carbon Dioxide 25 mmol/L (22-30); Chloride 106 mmol/L (98-107); Cholesterol 236 mg/dL (<200); Glucose 144 mg/dL (74-99); HDL Cholesterol 39 mg/dL (40-60); LDL Cholesterol,Calculated 159 mg/dL (0-99); Potassium 4.4 mmol/L (3.5-5.1); Sodium 140 mmol/L (137-145); Total Bilirubin 0.5 mg/dL (0.2-1.3); Total Protein 7.5 g/dL (6.3-8.2); Triglycerides 191 mg/dL (<150)
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
[2019-02-23] MEDS: ESCITALOPRAM 5 MG TAB PO SCH (10:39)
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
[2019-02-23] MEDS: CEPHALEXIN 500 MG CAP PO SCH ×3 (13:41→21:02)
[2019-02-23] MEDS: hydrOXYzine PAMOATE 25 MG CAP PO PRN (15:43)
[2019-02-23] MEDS: ATORVASTATIN 20 MG TAB PO SCH (20:18)
[2019-02-23] MEDS: POLYETHYLENE GLYCOL 3350 17 GM POWD.PACK PO SCH (20:18)
[2019-02-23] MEDS: DOCUSATE 100 MG CAP PO SCH (20:22)
[2019-02-23 20:59] LABS: Hemoglobin A1C 6.7 % (4.0-6.0)
[2019-02-23] MEDS ORDERED: QUEtiapine 100 MG TAB PO SCH (21:00)
[2019-02-24] MEDS: hydrOXYzine PAMOATE 25 MG CAP PO PRN ×2 (02:27→16:24)
[2019-02-24] MEDS: DOCUSATE 100 MG CAP PO SCH ×2 (08:40→20:51)
[2019-02-24] MEDS: CEPHALEXIN 500 MG CAP PO SCH ×3 (08:40→20:51)
[2019-02-24] MEDS: ESCITALOPRAM 5 MG TAB PO SCH (08:40)
[2019-02-24 09:23] LABS: HCT 42.3 % (34.0-46.0); HGB 13.7 gm/dL (11.4-16.0); MCH 29.1 pg (25.0-35.0); MCHC 32.3 g/dL (31.0-37.0); MCV 90.2 fL (80.0-100.0); Mean Platelet Volume 7.1; Platelet Count 312 k/uL (150-450); RDW 15.5 % (11.5-15.5); WBC 4.5 k/uL (3.8-10.6)
[2019-02-24 10:35] LABS: Eosinophils # (M) 0.14 k/uL (0-0.7); Lymphocytes # (M) 2.75 k/uL (1.0-4.8); Monocytes # (M) 0.63 k/uL (0-1.0); Neutrophils # (M) 0.99 k/uL (1.3-7.7); Neutrophils % (M) 22 %; Nucleated Red Blood Cells 0 /100 WBC (0-0); Total Cells Counted 100
[2019-02-24] MEDS: ATENOLOL 12.5 MG TAB PO SCH ×2 (12:53→20:50)
[2019-02-24] MEDS: metFORMIN 500 MG TAB PO SCH (17:47)
[2019-02-24] MEDS: ACETAMINOPHEN TAB 325 MG TAB PO PRN (19:03)
[2019-02-24] MEDS: QUEtiapine 100 MG TAB PO SCH (20:51)
[2019-02-24] MEDS: POLYETHYLENE GLYCOL 3350 17 GM POWD.PACK PO SCH (20:51)
[2019-02-24] MEDS: ATORVASTATIN 20 MG TAB PO SCH (20:51)
--- NOTE | 2019-02-24 22:25 | PN ---
PROGRESS NOTE DATE OF SERVICE: 02/24/2019 CHIEF COMPLAINT: The patient had patient had manic and depressive symptoms. She was off medications for 8 months. She was having panic symptoms. INTERVAL HISTORY: Patient has been doing fair. She had a quiet evening last night. She comes out in the day area. She will interact with others. She reports sleeping only 8 hours last night. Today she has been up. She attends some of the groups. She interacts appropriately with others. She continues to report some problems with anxiety. She can show some manic symptoms where she describes racing thoughts. At times her mood can seem elevated though she may report feelings of depression and periods of panic. Her appetite has been down, though she notes that she has been eating a little better day by day. She feels medications have been helping. She discussed that 8 months ago one of the reason she went off medications was that she had been prescribed Xanax by her physician. She felt that she started getting too much Xanax and wanted to be away from that medication. She does note a long history of bipolar symptoms with episodes of ariana where she can then precipitously go into depression. She has been cooperative with care. She tolerates psychotropic medications. MENTAL STATUS: Patient gave good eye contact. Psychomotor activity was a little restless. She answered questions appropriately. Her thoughts were clear, coherent, and goal directed. Her affect was in a reasonable range. She had a calm manner. Her mood seemed to be mildly elevated. She did not appear to be significantly distressed, though she described symptoms of panic that were not outwardly evident. There was no indication of thought disorder. Cognition was clear. She was oriented and alert. She was ambulatory with normal gait and strength. There was no tremor, abnormal movements or rigidity. ASSESSMENT: I will continue the current diagnosis and general treatment plan. I will increase Seroquel to 300 mg a day. The indication for Seroquel is for treatment of bipolar ariana as well as bipolar depression; 300 mg is the standard dose for bipolar depression. She seems to be describing more anxiety and depression issues than ariana. We will continue Lexapro 5 mg a day. I discussed treatment options including potential risks relating to her being on antidepressant with the underlying diagnosis of bipolar disorder. I will start the patient on Vistaril 50 mg q.8 hours p.r.n. for her concerns relating to anxiety. We will continue to focus on stabilization and discharge planning. MMODL / IJN: [id number] /
[2019-02-25] MEDS: ESCITALOPRAM 5 MG TAB PO SCH (08:46)
[2019-02-25] MEDS: metFORMIN 500 MG TAB PO SCH ×2 (08:46→17:37)
[2019-02-25] MEDS: ATENOLOL 12.5 MG TAB PO SCH ×2 (08:46→20:11)
[2019-02-25] MEDS: CEPHALEXIN 500 MG CAP PO SCH ×3 (08:46→20:11)
[2019-02-25] MEDS: DOCUSATE 100 MG CAP PO SCH ×2 (08:46→20:11)
[2019-02-25] MEDS: hydrOXYzine PAMOATE 25 MG CAP PO PRN ×2 (13:38→22:16)
[2019-02-25] MEDS: ATORVASTATIN 20 MG TAB PO SCH (20:11)
[2019-02-25] MEDS: QUEtiapine 100 MG TAB PO SCH (20:11)
[2019-02-25] MEDS: POLYETHYLENE GLYCOL 3350 17 GM POWD.PACK PO SCH (20:13)
--- NOTE | 2019-02-25 23:18 | PN ---
PROGRESS NOTE DATE OF SERVICE: 02/25/2019. CHIEF COMPLAINT: The patient had manic and depressive symptoms. She was off medications for 8 months. She was having panic symptoms. INTERVAL HISTORY: Patient has been doing fair. She seems to be making progress. She had a quiet evening last night. She comes out in the day area. She seems fairly comfortable in the mule view. It was reported she slept 5 hours last night. Today she has been up. She will interact with others. She attended 1 group today and declined others. The patient continues to report that her mood is improving, though she still acknowledges some anxiety and mood changes. When I have seen her on the unit, she seems fairly animated and even in her mood. She has been compliant with care. She tolerates psychotropic medications. MENTAL STATUS: Patient gave good eye contact. Psychomotor activity was a little restless. She answered questions appropriately. Her thoughts were clear, coherent, and goal directed. She had a reasonable range of affect. Her mood was somewhat elevated. She did not appear to be significantly distressed. ASSESSMENT: I will continue the current diagnosis and treatment plan. The patient questioned whether it would be reasonable to go up further on her Seroquel especially given that she has not been sleeping so well at night. I encouraged her to stay with the current dose of Seroquel and we will continue to monitor her progress. She does seem to be improving. We discussed discharge planning issues. DIOMEDES / ADITI: [id number] /
[2019-02-26] MEDS: ATENOLOL 12.5 MG TAB PO SCH ×2 (08:33→20:45)
[2019-02-26] MEDS: DOCUSATE 100 MG CAP PO SCH ×2 (08:33→20:45)
[2019-02-26] MEDS: metFORMIN 500 MG TAB PO SCH ×2 (08:33→17:03)
[2019-02-26] MEDS: CEPHALEXIN 500 MG CAP PO SCH ×3 (08:33→20:45)
[2019-02-26] MEDS: ESCITALOPRAM 5 MG TAB PO SCH (08:33)
[2019-02-26] MEDS: BENZTROPINE MESYLATE 1 MG TAB PO SCH ×2 (09:54→20:45)
--- NOTE | 2019-02-26 15:50 | P.PN ---
Subjective Progress Note Date: 02/26/19 02/26/2019 patient was started on metformin over the weekend for a new onset of type 2 diabetes mellitus. Hemoglobin A1c was 6.7. She was seen by the diabetic educator. Diet has been adjusted to a diabetic diet. Patient also was tachycardic over the weekend and atenolol 12.5 mg twice a day was added. Heart rate has shown improvement. Patient is reporting improvement in her left exalt abscess with the Keflex. She is complaining of upper back pain and a known history of degenerative disc disease. Patient currently has Tylenol for pain. She reports taking Percocet and Soma in the past. However, patient has not taken any of her home medications over the last 8 months. And she has been educated that narcotics are not given on the psychiatric floor. Objective - Vital Signs Vital signs: Vital Signs Temp 98.4 F 02/26/19 06:44 Pulse 67 02/26/19 06:44 Resp 14 02/26/19 06:44 BP 122/65 02/26/19 06:44 Pulse Ox 97 02/23/19 01:58 Intake & Output 02/25/19 02/26/19 02/26/19 18:59 06:59 18:59 Weight 54.8 kg - Exam Head normocephalic Neck supple Lungs clear to auscultation bilaterally no wheezing or crackles Heart regular rate and rhythm S1-S2, no rub or gallop Abdomen is soft nontender nondistended positive bowel sounds no hepatosplenomeg reece Extremities no edema Neuro alert and orientated to 3 Skin exam left axilla area abscess about 1 cm in size. Red firm. No drainage noted. - Labs CBC & Chem 7: 02/24/19 08:48 02/23/19 08:52 Assessment and Plan Assessment: 1. Bipolar type I disorder with depression and anxiety: Has been admitted to psychiatric unit. Continue plan per psychiatry recommendations 2. Left axilla abscess: Recent treatment with Bactrim with only a small improvement. Will start Keflex 500 mg 3 times a day for 10 days 3. Constipation: Continue Colace and MiraLAX. 4. Essential hypertension: Blood pressures have improved 5. Hyperlipidemia 6. New-onset diabetes mellitus type 2: A1c 6.7. Metformin 500 mg twice a day added over the weekend. Also add Accu-Cheks every before meals and at bedtime with NovoLog sliding scale coverage. Patient seen evaluated by diabetic educator. Change diet to a diabetic consistent carbohydrate diet. Prescription for glucometer and test strips have been written 7. Sinus tachycardia improved with the atenolol. 8. Chronic back pain: Continue with Tylenol as needed for pain. If further pain medication needed patient needs to request from psychiatrist. I performed an examination of the patient and discussed their management with the physician Baker. I have reviewed the Physician Baker's notes and agree with the documented findings and plan of care
[2019-02-26 17:03] LABS: Glucose,Whole Blood 102 mg/dL (75-99)
[2019-02-26] MEDS: INSULIN ASPART (NovoLOG) 100 UNIT/ML VIAL SQ SCH ×2 (17:04→20:33)
[2019-02-26 20:08] LABS: Glucose,Whole Blood 97 mg/dL (75-99)
[2019-02-26] MEDS: POLYETHYLENE GLYCOL 3350 17 GM POWD.PACK PO SCH (20:44)
[2019-02-26] MEDS: traZODone HCL 100 MG TAB PO SCH (20:45)
[2019-02-26] MEDS: QUEtiapine 100 MG TAB PO SCH (20:45)
[2019-02-26] MEDS: ATORVASTATIN 20 MG TAB PO SCH (20:45)
[2019-02-26] MEDS: hydrOXYzine PAMOATE 25 MG CAP PO PRN (22:22)
[2019-02-27 06:53] LABS: Glucose,Whole Blood 103 mg/dL (75-99)
[2019-02-27] MEDS: DOCUSATE 100 MG CAP PO SCH ×2 (08:48→20:46)
[2019-02-27] MEDS: BENZTROPINE MESYLATE 1 MG TAB PO SCH ×2 (08:48→20:45)
[2019-02-27] MEDS: ESCITALOPRAM 5 MG TAB PO SCH (08:48)
[2019-02-27] MEDS: CEPHALEXIN 500 MG CAP PO SCH ×3 (08:48→20:45)
[2019-02-27] MEDS: ATENOLOL 12.5 MG TAB PO SCH ×2 (08:48→20:45)
[2019-02-27] MEDS: metFORMIN 500 MG TAB PO SCH ×2 (08:48→17:08)
[2019-02-27] MEDS: INSULIN ASPART (NovoLOG) 100 UNIT/ML VIAL SQ SCH ×4 (08:51→20:43)
--- NOTE | 2019-02-27 10:19 | PN ---
PROGRESS NOTE DATE OF SERVICE: 02/27/2018 CHIEF COMPLAINT: The patient had manic and depressive symptoms. She was off medications for 8 months. She was having panic attacks. INTERVAL HISTORY: Patient has been doing fair. She continues with some ups and downs. She has some complaints of anxiety. Overall, she seems to be doing better in terms of mood stability. She had a quiet evening last night. She notes that she did not sleep at all last night. Poor sleep has been her main complaint. She has had some ups and downs in her sleep, though has not really been able to get on a stable sleep pattern. Two nights ago she did sleep 5 hours which was probably somewhat better for her. Today she has been up. She comes out in the day area. She attends groups. She has fairly good insight into her situation. She tolerates the psychotropic medications. She does note that she took Xanax for many years and was hoping to get on Xanax. She is willing to accept the idea that Xanax may be problematic for her in terms of stabilizing her mood disorder if she were to take it on a regular basis. MENTAL STATUS EXAM: Patient was somewhat restless. She gave good eye contact. She responded to questions appropriately. Her thoughts were clear. She asked good questions about treatment issues. Her affect was somewhat anxious. Her mood was mildly elevated. She did not appear to be distressed. There was no indication of thought disorder. ASSESSMENT: I will continue the current diagnosis and treatment plan. I will increase Seroquel to 600 mg a day. I had an extensive discussion with the patient regarding treatment options. We talked about standard treatment for bipolar disorder including bipolar ariana and bipolar depression. A concern shared was that she might take a higher dose of Desyrel, which could help with sleep, though the problem is antidepressants may destabilize her bipolar condition. The aim at this point is to maximize her medications specific for bipolar disorder, namely Seroquel. If she does not make headway with Seroquel, it might be reasonable to switch to Zyprexa as another alternative with a large body of experience and study in regards to both bipolar ariana and bipolar depression. I reviewed issues regarding dystonia and movement disorder related to all antipsychotics though in particular with Seroquel. In general, Cogentin 2 mg a day is adequate to control movement disorder. I noted that if she were to switch to Zyprexa, the occurrence of movement disorder significantly less and she might not need Cogentin. If she shows improvement on Seroquel then the next question would be whether or not antidepressants need to be adjusted either possibly going off the low dose of Lexapro altogether. There could be consideration for titrating up on antidepressant, though again that would need to be monitored in terms of risk for destabilizing her bipolar condition. Same issue holds for increasing trazodone. The patient is hopeful to be discharged soon and if we can get follow-up care she has no problems with the increase in Seroquel, I would like to discharge the patient tomorrow. MMODL / IJN: [id number] /
[2019-02-27 12:19] LABS: Glucose,Whole Blood 89 mg/dL (75-99)
[2019-02-27 17:31] LABS: Glucose,Whole Blood 105 mg/dL (75-99)
[2019-02-27 20:33] LABS: Glucose,Whole Blood 99 mg/dL (75-99)
[2019-02-27] MEDS: traZODone HCL 100 MG TAB PO SCH (20:45)
[2019-02-27] MEDS: QUEtiapine 200 MG TAB PO SCH (20:45)
[2019-02-27] MEDS: ATORVASTATIN 20 MG TAB PO SCH (20:45)
[2019-02-27] MEDS: POLYETHYLENE GLYCOL 3350 17 GM POWD.PACK PO SCH (20:46)
[2019-02-27] MEDS: hydrOXYzine PAMOATE 25 MG CAP PO PRN (20:49)
[2019-02-28 06:21] LABS: Glucose,Whole Blood 95 mg/dL (75-99)
[2019-02-28 06:45] VITALS: RESP 16
[2019-02-28] MEDS: ESCITALOPRAM 5 MG TAB PO SCH (08:03)
[2019-02-28] MEDS: CEPHALEXIN 500 MG CAP PO SCH ×3 (08:03→20:42)
[2019-02-28] MEDS: DOCUSATE 100 MG CAP PO SCH ×2 (08:03→20:42)
[2019-02-28] MEDS: BENZTROPINE MESYLATE 1 MG TAB PO SCH (08:03)
[2019-02-28] MEDS: metFORMIN 500 MG TAB PO SCH ×2 (08:03→17:40)
[2019-02-28] MEDS: ATENOLOL 12.5 MG TAB PO SCH ×2 (08:03→20:42)
[2019-02-28] MEDS: INSULIN ASPART (NovoLOG) 100 UNIT/ML VIAL SQ SCH ×4 (08:05→20:47)
[2019-02-28 12:04] LABS: Glucose,Whole Blood 95 mg/dL (75-99)
--- NOTE | 2019-02-28 12:39 | PN ---
PROGRESS NOTE DATE OF SERVICE: 02/28/2019 CHIEF COMPLAINT: The patient had manic and depressive symptoms. She was off medications for 8 months. She was having panic attacks. INTERVAL HISTORY: Patient has been doing fairly well. She had a quiet evening last night. She said that she slept 7 hours last night, which she thought was remarkable given that she has been barely sleeping much at all since she has been on the unit and in fact had not been sleeping well at all at home. She has been up and about today. She will go to some of the groups. She has not been to consistent with groups. She talked at length about discharge planning issues. One concern was that she had been seen previously at [facility], though she is not sure that she can afford their services. Overall, she feels her mood is more stable and her thoughts are clear. She asked a number of appropriate questions regarding her medications. She tolerates her psychotropic medications. MENTAL STATUS: Patient sat without restlessness. She gave fairly good eye contact. Psychomotor activity was a little slowed. She answered questions appropriately. Her thoughts were clear and coherent. Her affect was a little constricted though not significantly so. Her mood was even. It was noteworthy that she had a much quieter demeanor today and in comparison to previous days she may have been showing some mood elevation relating to her bipolar disorder, which is not evident today. Her thoughts were more goal directed and on track with the conversation than they had been. She did not appear to be distressed. Cognition was clear. ASSESSMENT: I will continue the current diagnosis and treatment plan. I discussed medication options with the patient. At this point, I will discontinue Desyrel given that she slept well last night. One issue is that she may do better if her medications are simplified also any antidepressant may pose a risk for destabilizing her bipolar condition. Given that, she is only on the low-dose Lexapro. She may do better without the addition of Desyrel as well. I will switch her Lexapro to bedtime so she will take most all her medications at bedtime to help improve medication compliance. We will focus on discharge planning with anticipation that she will be discharged in the next 1 to 2 days. DIOMEDES / FARAN: [id number] /
[2019-02-28 17:27] LABS: Glucose,Whole Blood 94 mg/dL (75-99)
[2019-02-28 20:10] LABS: Glucose,Whole Blood 88 mg/dL (75-99)
[2019-02-28] MEDS: POLYETHYLENE GLYCOL 3350 17 GM POWD.PACK PO SCH (20:40)
[2019-02-28] MEDS: ATORVASTATIN 20 MG TAB PO SCH (20:42)
[2019-02-28] MEDS: QUEtiapine 200 MG TAB PO SCH (20:42)
[2019-02-28] MEDS ORDERED: BENZTROPINE MESYLATE 1 MG TAB PO SCH (21:00)
[2019-02-28] MEDS ORDERED: ESCITALOPRAM 5 MG TAB PO SCH (21:00)
[2019-02-28] MEDS ORDERED: traZODone HCL 50 MG TAB PO SCH (21:00)
[2019-03-01 06:53] LABS: Glucose,Whole Blood 110 mg/dL (75-99)
[2019-03-01 07:04] VITALS: TEMP 98
[2019-03-01] MEDS: INSULIN ASPART (NovoLOG) 100 UNIT/ML VIAL SQ SCH ×2 (07:40→12:33)
[2019-03-01] MEDS: metFORMIN 500 MG TAB PO SCH (07:56)
[2019-03-01 08:42] LABS: Glucose,Whole Blood 164 mg/dL (75-99)
[2019-03-01] MEDS: DOCUSATE 100 MG CAP PO SCH (09:00)
[2019-03-01] MEDS: CEPHALEXIN 500 MG CAP PO SCH (09:00)
[2019-03-01] MEDS: ATENOLOL 12.5 MG TAB PO SCH (09:00)
[2019-03-01 09:03] VITALS: BP 112/79; PULSE 69
--- NOTE | 2019-03-01 10:07 | P.DS ---
Providers Date of admission: 02/23/19 01:45 Expected date of discharge: 03/01/19 Attending physician: Shin Bergman Consults: 02/23/19 02:05 Consult Physician Routine Consulting Provider: Ann Gordon Consult Reason/Comments: H & P and medical management Do you want consulting provider notified?: Yes, Notify in am Primary care physician: Kelin Stevenson - Discharge Diagnosis(es) (1) Bipolar 1 disorder, depressed Current Visit: Yes Status: Acute Priority: High (2) Anxiety Current Visit: Yes Status: Acute Priority: Medium Hospital Course: Brief summary admission note: This patient is a 58-year-old female who was admitted to the mental health unit through the emergency room for prolonged insomnia and mood symptoms. The patient presented with a known diagnosis of bipolar 1 disorder. She had been off her psychotropic medications for 8 months. She has been struggling with sleep her moods been depressed she has increased anxiety. For full details please refer to my psychiatric evaluation dated 02/23/2019. Summary of hospital course: The patient was admitted to the mental health unit voluntarily. We reviewed her presenting symptoms and treatment options. I initiated her psychotropic medication that being Seroquel 100 mg at bedtime the plan was to titrate higher for mood stabilization. Lexapro 5 mg daily was initiated for depressive and anxiety symptoms. For most of her admission she was cared for by Dr. Verduzco, please refer to his progress notes for specific detail. I have met with the patient this morning. She states that she is doing really well she feels her mood is stabilized and is happy with the medications as written. We reviewed the Seroquel Lexapro and Cogentin. She was seen by internal medicine. She was prescribed in antibiotic for an axillary abscess and is on a course of Keflex. Social workers met with the patient for purposes of completing the psychosocial assessment and for discharge planning. The patient indicates she has no one she wishes to involved in a support meeting. Mental status exam: The patient is alert she is dressed in her own clothing. She is pleasant cooperative and easily directed. She remains calmly seated in the chair for the duration of our interaction. She states her mood is much better affect is congruent and appears euthymic. She reports no suicidal or homicidal ideation intent or plan. She demonstrates no tangential thinking loose associations or flight of ideas. She does not appear hypomanic or manic. She demonstrates no verbal or physical aggressiveness. She does continue to demonstrate some abnormal involuntary mouth movements that were identified at time of admission. She is oriented to person place and date. Insight and judgment have improved. She spontaneously states that she realizes she should stay on her medication and she is willing to follow with outpatient mental health services. Impressions 1. Bipolar 1 disorder most recent depressed, anxiety unspecified 2. Suspect tardive dyskinesia Plan: The patient will be discharged mental health unit today to return home. She will continue on Seroquel 600 mg at bedtime Cogentin 2 mg at bedtime, Lexapro 5 mg daily. Social work will arrange for outpatient mental health follow-up. She will continue to follow up with primary care for routine medical concerns. We will continue the antibiotic as directed through the . At this time there is no imminent safety risk the patient is appropriate for transition to outpatient care. She is instructed to return to the hospital if any acute safety concerns. Patient Condition at Discharge: Stable Plan - Discharge Summary Discharge Rx Participant: No New Discharge Prescriptions: New Benztropine Mesylate [Cogentin] 2 mg PO HS #30 tablet Docusate [Colace] 100 mg PO BID #60 cap metFORMIN HCL [Glucophage] 500 mg PO BID-W/MEALS #60 tab Cephalexin [Keflex] 500 mg PO TID #14 cap Escitalopram [Lexapro] 5 mg PO HS #30 tab Atorvastatin [Lipitor] 20 mg PO HS #30 tab QUEtiapine FUMARATE [SEROquel] 600 mg PO HS #60 tab Atenolol [Tenormin] 12.5 mg PO BID #60 dose Discontinued Mirtazapine [Remeron] 45 mg PO HS Discharge Medication List Atenolol [Tenormin] 12.5 mg PO BID #60 dose 03/01/19 [Rx] Atorvastatin [Lipitor] 20 mg PO HS #30 tab 03/01/19 [Rx] Benztropine Mesylate [Cogentin] 2 mg PO HS #30 tablet 03/01/19 [Rx] Cephalexin [Keflex] 500 mg PO TID #14 cap 03/01/19 [Rx] Docusate [Colace] 100 mg PO BID #60 cap 03/01/19 [Rx] Escitalopram [Lexapro] 5 mg PO HS #30 tab 03/01/19 [Rx] QUEtiapine FUMARATE [SEROquel] 600 mg PO HS #60 tab 03/01/19 [Rx] metFORMIN HCL [Glucophage] 500 mg PO BID-W/MEALS #60 tab 03/01/19 [Rx] Follow up Appointment(s)/Referral(s): [facility] [Outside] - 03/13/19 2:00 pm ([facility] added to cancellation list for earlier date if opens ) Kelin Stevenson MD [Primary Care Provider] - 03/05/19 11:00 am ([facility] Follow up for being newly diagnosed with diabetes) Activity/Diet/Wound Care/Special Instructions: Paper prescriptions for a glucose meter, test strips, and Keflex in plastic sleeve in patients chart. Please fax medical dictation and labs to Dr. Stevenson's office at [facility], TEE in chart, fax# [phone].
== END 2019-03-01 11:46 | disposition home or self-care (01) | DRG 885 ==
LOC: EC 23:24 → 3MHU 02-23 01:45
PROVIDERS: ADMIT Psychiatry & Neurology Psychiatry; ATTEND Psychiatry & Neurology Psychiatry
DX: F31.30 Bipolar disorder, current episode depressed, mild or moderate severity, unspecified (principal); L02.412 Cutaneous abscess of left axilla; E11.9 Type 2 diabetes mellitus without complications; G24.01 Drug induced subacute dyskinesia; E78.5 Hyperlipidemia, unspecified; F17.200 Nicotine dependence, unspecified, uncomplicated; F41.0 Panic disorder [episodic paroxysmal anxiety]; G43.909 Migraine, unspecified, not intractable, without status migrainosus; G47.00 Insomnia, unspecified; G89.29 Other chronic pain; I10 Essential (primary) hypertension; K59.00 Constipation, unspecified; K64.9 Unspecified hemorrhoids; M54.6 Pain in thoracic spine; M51.36 Other intervertebral disc degeneration, lumbar region; Z79.899 Other long term (current) drug therapy; Z90.721 Acquired absence of ovaries, unilateral; Z91.5 Personal history of self-harm; Z88.0 Allergy status to penicillin; Z90.49 Acquired absence of other specified parts of digestive tract; Z81.8 Family history of other mental and behavioral disorders
CPT/HCPCS: 80053; 80061; 80306; 81003; 82248; 83036; 84443; 85025; 99285

== ENCOUNTER 2019-04-24 19:37 | Emergency (ER) | payer MEDICARE, OTHER ==
[2019-04-24] MEDS ORDERED: SODIUM CHLORIDE 0.9% 1,000 ML IV STA (20:29)
[2019-04-24] MEDS ORDERED: KETOROLAC 30 MG/ML 1 ML VIAL IVP STA (20:30)
[2019-04-24] MEDS ORDERED: ONDANSETRON 4 MG/2 ML VIAL IVP STA (20:30)
--- NOTE | 2019-04-24 20:34 | ED ---
Abdominal Pain HPI - General Chief Complaint: Abdominal Pain Stated Complaint: Abd pain Time Seen by Provider: 04/24/19 19:55 Source: patient Mode of arrival: ambulatory Limitations: no limitations - History of Present Illness Initial Comments: Patient is a 58-year-old female presenting to emergency Department with complaints of abdominal pain 2 days. Patient states her pain is located in the left upper quadrant as well as lower quadrant. Patient has associated nausea, no vomiting. Patient denies fever, chills, diarrhea. Patient had a bowel mov ement this morning and was normal. Patient has history of 2 C-sections. Patient states the pain has been increasing over the last 48 hours. Patient does have admit to taking Percocets that she has for back pain and is not helping with this pain. Patient has no other complaints at this time. - Related Data Previous Rx's Medication Instructions Recorded Atenolol [Tenormin] 12.5 mg PO BID #60 dose 03/01/19 Atorvastatin [Lipitor] 20 mg PO HS #30 tab 03/01/19 Benztropine Mesylate [Cogentin] 2 mg PO HS #30 tablet 03/01/19 Cephalexin [Keflex] 500 mg PO TID #14 cap 03/01/19 Docusate [Colace] 100 mg PO BID #60 cap 03/01/19 Escitalopram [Lexapro] 5 mg PO HS #30 tab 03/01/19 QUEtiapine FUMARATE [SEROquel] 600 mg PO HS #60 tab 03/01/19 metFORMIN HCL [Glucophage] 500 mg PO BID-W/MEALS #60 tab 03/01/19 Polyethylene Glycol 3350 [Miralax] 17 gm PO DAILY 14 Days #14 packet 04/24/19 Allergies Allergy/AdvReac Type Severity Reaction Status Date / Time Penicillins Allergy Unknown Rash/Hives/ Verified 04/24/19 19:51 Itching Review of Systems ROS Statement: Those systems with pertinent positive or pertinent negative responses have been documented in the HPI. ROS Other: All systems not noted in ROS Statement are negative. Past Medical History Past Medical History: Hyperlipidemia, Hypertension Additional Past Medical History / Comment(s): occ migraines, hemorrhoids, degenerative disks L4 and L5 History of Any Multi-Drug Resistant Organisms: None Reported Past Surgical History: Appendectomy, Section, Orthopedic Surgery Additional Past Surgical History / Comment(s): LEFT ARM (POST TRAUMATIC INJURY) reattached, RIGHT FOOT X3, LEFT KNEE ARTHROSCOPY, left oophorectomy Past Anesthesia/Blood Transfusion Reactions: No Reported Reaction Past Psychological History: Anxiety, Bipolar, Depression, Panic Disorder Smoking Status: Current some day smoker - Past Family History Mother Family Medical History: No Reported History General Exam - General Exam Comments Initial Comments: GENERAL: Well-appearing, well-nourished and in no acute distress. HEAD: Atraumatic, normocephalic. EYES: Pupils equal round and reactive to light, extraocular movements intact, sclera anicteric, conjunctiva are normal. ENT: TMs normal, nares patent, oropharynx clear without exudates. Moist mucous membranes. NECK: Normal range of motion, supple without lymphadenopathy or JVD. LUNGS: Breath sounds clear to auscultation bilaterally and equal. No wheezes rales or rhonchi. HEART: Regular rate and rhythm without murmurs, rubs or gallops. ABDOMEN: Tender to palpation of left upper quadrant, mid epigastric, left lower quadrant. Soft, normoactive bowel sounds. No guarding, no rebound. No masses appreciated. : Deferred EXTREMITIES: Normal range of motion, no pitting or edema. No clubbing or cyanosis. NEUROLOGICAL: Cranial nerves II through XII grossly intact. Normal speech, normal gait. PSYCH: Normal mood, normal affect. SKIN: Warm, Dry, normal turgor, no rashes or lesions noted. Limitations: no limitations Course Vital Signs 04/24/19 04/24/19 04/24/19 19:49 21:58 22:43 Temperature 99.2 F 99.0 F Pulse Rate 92 90 80 Respiratory 16 17 19 Rate Blood Pressure 156/81 131/70 O2 Sat by Pulse 95 99 98 Oximetry Medical Decision Making - Medical Decision Making Patient is a 58-year-old female presenting with left upper quadrant left lower quadrant abdominal pain 2 days. Patient has associated nausea. Denies fever, chills, vomiting, diarrhea. Patient had bowel movement this morning that was normal. Upon arrival vital signs are stable, afebrile. On exam patient has tenderness of the upper left and lower left quadrants. CBC is within normal limits. CMP shows slightly increased ALDRICH 18. Lactic acid is 1.0. Amylase and lipase are within normal limits. UA does show moderate amount of blood. No signs of infection. Patient denies history of kidney stones. A CT was ordered and shows a nonobstructing right renal calculi and large colonic stool indicating constipation. Patient was given fluids, Zofran, and pain medicine. Patient reports improvement. Was discussed with patient that she is most likely constipated. Patient will be started on MiraLAX and will follow up with primary care as needed. Patient is stable for discharge and she is in agreement with this plan of care. Return parameters were discussed with the patient she verbalized understanding. Case discussed with Dr. Salazar. - Lab Data Result diagrams: 04/24/19 20:35 04/24/19 20:35 Lab Results 04/24/19 04/24/19 04/24/19 Range/Units 20:35 20:35 20:35 WBC 10.2 (3.8-10.6) k/uL RBC 3.96 (3.80-5.40) m/uL Hgb 12.1 (11.4-16.0) gm/dL Hct 36.8 (34.0-46.0) % MCV 92.8 (80.0-100.0) fL MCH 30.4 (25.0-35.0) pg MCHC 32.8 (31.0-37.0) g/dL RDW 14.0 (11.5-15.5) % Plt Count 277 (150-450) k/uL Neutrophils % 53 % Lymphocytes % 38 % Monocytes % 5 % Eosinophils % 2 % Basophils % 1 % Neutrophils # 5.4 (1.3-7.7) k/uL Lymphocytes # 3.8 (1.0-4.8) k/uL Monocytes # 0.5 (0-1.0) k/uL Eosinophils # 0.2 (0-0.7) k/uL Basophils # 0.1 (0-0.2) k/uL Sodium 138 (137-145) mmol/L Potassium 4.1 (3.5-5.1) mmol/L Chloride 100 (98-107) mmol/L Carbon Dioxide 32 H (22-30) mmol/L Anion Gap 6 mmol/L BUN 18 H (7-17) mg/dL Creatinine 0.74 (0.52-1.04) mg/dL Est GFR (CKD-EPI)AfAm >90 (>60 ml/min/1.73 sqM) Est GFR (CKD-EPI)NonAf >90 (>60 ml/min/1.73 sqM) Glucose 120 H (74-99) mg/dL Plasma Lactic Acid Marcelino 1.0 (0.7-2.0) mmol/L Calcium 9.9 (8.4-10.2) mg/dL Total Bilirubin 0.2 (0.2-1.3) mg/dL AST 51 H (14-36) U/L ALT 67 H (9-52) U/L Alkaline Phosphatase 104 (38-126) U/L Total Protein 6.7 (6.3-8.2) g/dL Albumin 3.9 (3.5-5.0) g/dL Amylase 62 (30-110) U/L Lipase 124 (23-300) U/L Urine Color Urine Appearance (Clear) Urine pH (5.0-8.0) Ur Specific Wheeler (1.001-1.035) Urine Protein (Negative) Urine Glucose (UA) (Negative) Urine Ketones (Negative) Urine Blood (Negative) Urine Nitrite (Negative) Urine Bilirubin (Negative) Urine Urobilinogen (<2.0) mg/dL Ur Leukocyte Esterase (Negative) Urine RBC (0-5) /hpf Urine WBC (0-5) /hpf Ur Squamous Epith Cells (0-4) /hpf Urine Mucus (None) /hpf 04/24/19 Range/Units 21:40 WBC (3.8-10.6) k/uL RBC (3.80-5.40) m/uL Hgb (11.4-16.0) gm/dL Hct (34.0-46.0) % MCV (80.0-100.0) fL MCH (25.0-35.0) pg MCHC (31.0-37.0) g/dL RDW (11.5-15.5) % Plt Count (150-450) k/uL Neutrophils % % Lymphocytes % % Monocytes % % Eosinophils % % Basophils % % Neutrophils # (1.3-7.7) k/uL Lymphocytes # (1.0-4.8) k/uL Monocytes # (0-1.0) k/uL Eosinophils # (0-0.7) k/uL Basophils # (0-0.2) k/uL Sodium (137-145) mmol/L Potassium (3.5-5.1) mmol/L Chloride (98-107) mmol/L Carbon Dioxide (22-30) mmol/L Anion Gap mmol/L BUN (7-17) mg/dL Creatinine (0.52-1.04) mg/dL Est GFR (CKD-EPI)AfAm (>60 ml/min/1.73 sqM) Est GFR (CKD-EPI)NonAf (>60 ml/min/1.73 sqM) Glucose (74-99) mg/dL Plasma Lactic Acid Marcelino (0.7-2.0) mmol/L Calcium (8.4-10.2) mg/dL Total Bilirubin (0.2-1.3) mg/dL AST (14-36) U/L ALT (9-52) U/L Alkaline Phosphatase (38-126) U/L Total Protein (6.3-8.2) g/dL Albumin (3.5-5.0) g/dL Amylase (30-110) U/L Lipase (23-300) U/L Urine Color Light Yellow Urine Appearance Clear (Clear) Urine pH 8.0 (5.0-8.0) Ur Specific Wheeler 1.008 (1.001-1.035) Urine Protein Negative (Negative) Urine Glucose (UA) Negative (Negative) Urine Ketones Negative (Negative) Urine Blood Moderate H (Negative) Urine Nitrite Negative (Negative) Urine Bilirubin Negative (Negative) Urine Urobilinogen <2.0 (<2.0) mg/dL Ur Leukocyte Esterase Negative (Negative) Urine RBC <1 (0-5) /hpf Urine WBC <1 (0-5) /hpf Ur Squamous Epith Cells <1 (0-4) /hpf Urine Mucus Occasional H (None) /hpf Disposition Clinical Impression: Abdominal pain, Constipation Disposition: HOME SELF-CARE Condition: Stable Instructions (If sedation given, give patient instructions): Abdominal Pain (ED) Additional Instructions: Please return to the Emergency Department if symptoms worsen or any other concerns. Take MiraLAX as discussed. Follow up with primary care. Prescriptions: Polyethylene Glycol 3350 [Miralax] 17 gm PO DAILY 14 Days #14 packet Is patient prescribed a controlled substance at d/c from ED?: No Referrals: Kelin Stevenson MD [Primary Care Provider] - 1-2 days
[2019-04-24 20:49] LABS: Basophils # (A) 0.1 k/uL (0-0.2); Basophils % (A) 1 %; Eosinophils # (A) 0.2 k/uL (0-0.7); Eosinophils % (A) 2 %; HCT 36.8 % (34.0-46.0); HGB 12.1 gm/dL (11.4-16.0); Lymphocytes # (A) 3.8 k/uL (1.0-4.8); Lymphocytes % (A) 38 %; MCH 30.4 pg (25.0-35.0); MCHC 32.8 g/dL (31.0-37.0); MCV 92.8 fL (80.0-100.0); Mean Platelet Volume 6.8; Monocytes # (A) 0.5 k/uL (0-1.0); Monocytes % (A) 5 %; Neutrophils # (A) 5.4 k/uL (1.3-7.7); Neutrophils % (A) 53 %; Platelet Count 277 k/uL (150-450); RBC 3.96 m/uL (3.80-5.40); WBC 10.2 k/uL (3.8-10.6)
[2019-04-24 20:58] LABS: ALT 67 U/L (9-52); AST 51 U/L (14-36); African American GFR (CKD) >90 (>60 ml/min/1.73 sqM); Albumin 3.9 g/dL (3.5-5.0); Alkaline Phosphatase 104 U/L (38-126); Amylase 62 U/L (30-110); Anion Gap 6 mmol/L; Blood Urea Nitrogen 18 mg/dL (7-17); Calcium 9.9 mg/dL (8.4-10.2); Carbon Dioxide 32 mmol/L (22-30); Chloride 100 mmol/L (98-107); Glucose 120 mg/dL (74-99); Potassium 4.1 mmol/L (3.5-5.1); Sodium 138 mmol/L (137-145); Total Bilirubin 0.2 mg/dL (0.2-1.3); Total Protein 6.7 g/dL (6.3-8.2)
[2019-04-24] MEDS ORDERED: MORPHINE SULFATE 4 MG/ML SYRINGE IVP STA (21:29)
[2019-04-24 21:48] LABS: Appearance,Urine Clear (Clear); Bilirubin,Urine Negative (Negative); Blood,Urine Moderate (Negative); Color,Urine Light Yellow; Glucose,Urine (UA) Negative (Negative); Ketones,Urine Negative (Negative); Leukocyte Esterase,Urine Negative (Negative); Mucus,Urine Occasional /hpf; Nitrite,Urine Negative (Negative); Protein,Urine Negative (Negative); RBC,Urine <1 /hpf (0-5); Specific Gravity,Urine 1.008 (1.001-1.035); Squamous Epithelial Cell,Urine <1 /hpf (0-4); Urobilinogen,Urine <2.0 mg/dL (<2.0)
--- NOTE | 2019-04-24 22:19 | CT ---
EXAM: CT Abdomen and Pelvis Without Intravenous Contrast CLINICAL HISTORY: ITS.REASON CT Reason: Pain TECHNIQUE: Axial computed tomography images of the abdomen and pelvis without intravenous contrast. CTDI is 7.3 mGy and DLP is 378.7 mGy-cm. This CT exam was performed using one or more of the following dose reduction techniques: automated exposure control, adjustment of the mA and/or kV according to patient size, and/or use of iterative reconstruction technique. COMPARISON: None FINDINGS: Lung bases: Unremarkable. No mass. No consolidation. Mediastinum: Mild wall thickening of the distal esophagus. ABDOMEN: Liver: Unremarkable. Gallbladder and bile ducts: Unremarkable. No calcified stones. No ductal dilation. Pancreas: Unremarkable. No ductal dilation. Spleen: Unremarkable. No splenomegaly. Adrenals: Unremarkable. No mass. Kidneys and ureters: Nonobstructing right renal calculi. Stomach and bowel: Large colonic stool burden. No mucosal thickening. PELVIS: Appendix: Not visualized, likely surgically absent. Bladder: Unremarkable. No stones. Reproductive: Unremarkable as visualized. ABDOMEN and PELVIS: Intraperitoneal space: Unremarkable. No free air. No significant fluid collection. Bones/joints: Disc protrusions are seen at L4-L5 and L5-S1 with mild spinal canal stenosis. No acute fracture. No dislocation. Soft tissues: Unremarkable. Vasculature: Unremarkable. No abdominal aortic aneurysm. Lymph nodes: Unremarkable. No enlarged lymph nodes. IMPRESSION: 1. Nonobstructing right renal calculi. No ureteral calculi. 2. Mild wall thickening of the distal esophagus. Recommend correlation for esophagitis. 3. Large colonic stool burden. Recommend correlation for constipation.
[2019-04-24 22:44] VITALS: BP 131/70; PULSE 80; RESP 19; TEMP 99
== END 2019-04-24 22:45 | disposition home or self-care (01) ==
LOC: EC 19:37
DX: K59.00 Constipation, unspecified (principal); N20.0 Calculus of kidney; F17.200 Nicotine dependence, unspecified, uncomplicated; Z88.0 Allergy status to penicillin
CPT/HCPCS: 36415; 80053; 82150; 83605; 83690; 85025; 81001; 74176; 99284; 96374; 96375 ×2; 96361; J2270; J2405; J1885

== ENCOUNTER 2019-07-07 15:19 | Emergency (ER) | payer MEDICARE, OTHER ==
[2019-07-07] MEDS ORDERED: LORazepam 2 MG/ML INJ IM STA (15:27)
--- NOTE | 2019-07-07 15:36 | ED ---
General Adult HPI - General Chief complaint: Anxiety Stated complaint: panic attack Time Seen by Provider: 07/07/19 15:21 Source: patient, EMS Mode of arrival: EMS Limitations: no limitations - History of Present Illness Initial comments: 58-year-old female with a past medical history of hyperlipidemia, hypertension, bipolar disorder, depression, anxiety, panic disorder presents to the emergency department for a chief complaint of panic attack. Patient has had panic attacks like this before. Family member at bedside states patient started having a panic attack less than an hour ago. Since they called EMS. Patient states she has had panic attacks exactly like this before. States that she has not been able to get her psychiatric medications refilled because her insurance will pay for a psychiatrist and she cant find a doctor to fill them. Patient has no other complaints at this time including shortness of breath, chest pain, abdominal irena n, nausea or vomiting, headache, or visual changes. - Related Data Previous Rx's Medication Instructions Recorded Atenolol [Tenormin] 12.5 mg PO BID #60 dose 03/01/19 Atorvastatin [Lipitor] 20 mg PO HS #30 tab 03/01/19 Benztropine Mesylate [Cogentin] 2 mg PO HS #30 tablet 03/01/19 Cephalexin [Keflex] 500 mg PO TID #14 cap 03/01/19 Docusate [Colace] 100 mg PO BID #60 cap 03/01/19 Escitalopram [Lexapro] 5 mg PO HS #30 tab 03/01/19 QUEtiapine FUMARATE [SEROquel] 600 mg PO HS #60 tab 03/01/19 metFORMIN HCL [Glucophage] 500 mg PO BID-W/MEALS #60 tab 03/01/19 Polyethylene Glycol 3350 [Miralax] 17 gm PO DAILY 14 Days #14 packet 04/24/19 Allergies Allergy/AdvReac Type Severity Reaction Status Date / Time Penicillins Allergy Unknown Rash/Hives/ Verified 07/07/19 15:20 Itching Review of Systems ROS Statement: Those systems with pertinent positive or pertinent negative responses have been documented in the HPI. ROS Other: All systems not noted in ROS Statement are negative. Past Medical History Past Medical History: Hyperlipidemia, Hypertension Additional Past Medical History / Comment(s): occ migraines, hemorrhoids, degenerative disks L4 and L5 History of Any Multi-Drug Resistant Organisms: None Reported Past Surgical History: Appendectomy, Section, Orthopedic Surgery Additional Past Surgical History / Comment(s): LEFT ARM (POST TRAUMATIC INJURY) reattached, RIGHT FOOT X3, LEFT KNEE ARTHROSCOPY, left oophorectomy Past Anesthesia/Blood Transfusion Reactions: No Reported Reaction Past Psychological History: Anxiety, Bipolar, Depression, Panic Disorder Smoking Status: Current some day smoker - Past Family History Mother Family Medical History: No Reported History General Exam Limitations: no limitations General appearance: alert, anxious Head exam: Present: atraumatic, normocephalic, normal inspection Eye exam: Present: normal appearance, PERRL, EOMI. Absent: scleral icterus, conjunctival injection, periorbital swelling ENT exam: Present: normal exam, mucous membranes moist Neck exam: Present: normal inspection, full ROM. Absent: tenderness, meningismus, lymphadenopathy Respiratory exam: Present: normal lung sounds bilaterally. Absent: respiratory distress, wheezes, rales, rhonchi, stridor Cardiovascular Exam: Present: regular rate, normal rhythm, normal heart sounds. Absent: systolic murmur, diastolic murmur, rubs, gallop, clicks Neurological exam: Present: alert Psychiatric exam: Present: agitated, anxious, suicidal ideation Course Vital Signs 07/07/19 15:45 Temperature 98 F Pulse Rate 62 Respiratory 16 Rate Blood Pressure 114/95 O2 Sat by Pulse 98 Oximetry - Reevaluation(s) Reevaluation #1: 07/07/19 15:58 Patient was given 2 IM Ativan without improvement in symptoms after greater than 20 minutes. I discussed this with Dr. Gonzalez and we decided to place an IV and give 2 mg ativan IV Reevaluation #2: 07/07/19 16:19 Patient is being verbally abusive to staff, not consistent in her behavior Reevaluation #3: 07/07/19 17:40 Patient requesting her home Percocet medication for her chronic back pain. Patient is alert eating. She is more reasonable at this time. Medical Decision Making - Medical Decision Making 58-year-old female presented complaining of panic attack. Patient was writhing around uncooperative. States that this is how her normal panic attacks are. She was given 2 IM of Ativan without improvement. After 20 minutes we gave 2 mg of Ativan IV. Patient's symptoms are not consistent and patient did eventually cooperate. Patient was never sedated from the Ativan. Patient has stated multiple times that she wanted to go home and and felt suicidal. Therefore patient was placed on suicide precautions and EPS was consulted. Psychiatrist Dr. Graham was consulted. He recommends outpatient follow-up. Patient is much calmer at this time. Patient did request Percocet and I was told that she takes this at home for her chronic pain. I did give her 1 Percocet. However upon review of patient's medications patient has not had Percocet since 2018 and she was untruthful about this. Refused additional dose of requested percocet. Patient requesting more Ativan on discharge however patient was given 4 mg of Ativan throughout her ER stay and at this point psychiatry is recommending against any more medications through the ER or outpatient according to [facility]. Patient did become verbally abusive and verbally aggressive when medications were refused on discharge. She will have to follow up with [facility] for further medications. These referrals were given. - Lab Data Result diagrams: 07/07/19 14:00 07/07/19 14:00 Lab Results 07/07/19 07/07/19 Range/Units 14:00 14:00 WBC 8.0 (3.8-10.6) k/uL RBC 4.66 (3.80-5.40) m/uL Hgb 14.5 (11.4-16.0) gm/dL Hct 42.2 (34.0-46.0) % MCV 90.5 (80.0-100.0) fL MCH 31.1 (25.0-35.0) pg MCHC 34.3 (31.0-37.0) g/dL RDW 12.5 (11.5-15.5) % Plt Count 314 (150-450) k/uL Neutrophils % 33 % Lymphocytes % 55 % Monocytes % 5 % Eosinophils % 3 % Basophils % 1 % Neutrophils # 2.7 (1.3-7.7) k/uL Lymphocytes # 4.4 (1.0-4.8) k/uL Monocytes # 0.4 (0-1.0) k/uL Eosinophils # 0.2 (0-0.7) k/uL Basophils # 0.1 (0-0.2) k/uL Sodium 139 (137-145) mmol/L Potassium 4.3 (3.5-5.1) mmol/L Chloride 104 (98-107) mmol/L Carbon Dioxide 25 (22-30) mmol/L Anion Gap 10 mmol/L BUN 16 (7-17) mg/dL Creatinine 0.87 (0.52-1.04) mg/dL Est GFR (CKD-EPI)AfAm 86 (>60 ml/min/1.73 sqM) Est GFR (CKD-EPI)NonAf 74 (>60 ml/min/1.73 sqM) Glucose 99 (74-99) mg/dL Calcium 10.3 H (8.4-10.2) mg/dL Total Bilirubin 0.2 (0.2-1.3) mg/dL AST 25 (14-36) U/L ALT 21 (9-52) U/L Alkaline Phosphatase 117 (38-126) U/L Total Protein 7.6 (6.3-8.2) g/dL Albumin 4.2 (3.5-5.0) g/dL Serum Alcohol <10 mg/dL Disposition Clinical Impression: Panic disorder Disposition: HOME SELF-CARE Condition: Good Instructions (If sedation given, give patient instructions): Generalized Anxiety Disorder (ED) Additional Instructions: Please follow up with primary care physician for medication refills. Please return if you have any worsening symptoms. Is patient prescribed a controlled substance at d/c from ED?: No Referrals: [facility] [NON-STAFF] - 1-2 days Mykel Mehta MD [REFERRING] - 1-2 days Time of Disposition: 20:04
[2019-07-07] MEDS ORDERED: SODIUM CHLORIDE 0.9% 1,000 ML IV STA (15:52)
[2019-07-07] MEDS ORDERED: LORazepam 2 MG/ML INJ IV STA (15:52)
[2019-07-07 16:14] LABS: Basophils # (A) 0.1 k/uL (0-0.2); Basophils % (A) 1 %; Eosinophils # (A) 0.2 k/uL (0-0.7); Eosinophils % (A) 3 %; HCT 42.2 % (34.0-46.0); HGB 14.5 gm/dL (11.4-16.0); Lymphocytes # (A) 4.4 k/uL (1.0-4.8); Lymphocytes % (A) 55 %; MCH 31.1 pg (25.0-35.0); MCHC 34.3 g/dL (31.0-37.0); MCV 90.5 fL (80.0-100.0); Mean Platelet Volume 6.3; Monocytes # (A) 0.4 k/uL (0-1.0); Monocytes % (A) 5 %; Neutrophils # (A) 2.7 k/uL (1.3-7.7); Neutrophils % (A) 33 %; Platelet Count 314 k/uL (150-450); RBC 4.66 m/uL (3.80-5.40); RDW 12.5 % (11.5-15.5)
[2019-07-07 16:24] LABS: ALT 21 U/L (9-52); AST 25 U/L (14-36); African American GFR (CKD) 86 (>60 ml/min/1.73 sqM); Albumin 4.2 g/dL (3.5-5.0); Alcohol <10 mg/dL; Alkaline Phosphatase 117 U/L (38-126); Anion Gap 10 mmol/L; Blood Urea Nitrogen 16 mg/dL (7-17); Calcium 10.3 mg/dL (8.4-10.2); Carbon Dioxide 25 mmol/L (22-30); Chloride 104 mmol/L (98-107); Glucose 99 mg/dL (74-99); Potassium 4.3 mmol/L (3.5-5.1); Sodium 139 mmol/L (137-145); Total Bilirubin 0.2 mg/dL (0.2-1.3); Total Protein 7.6 g/dL (6.3-8.2)
[2019-07-07 16:32] VITALS: BP 114/95; PULSE 62; RESP 16; TEMP 98
[2019-07-07] MEDS ORDERED: oxyCODONE-APAP 5-325MG 1 EACH TAB PO STA (17:40)
[2019-07-07] MEDS ORDERED: IBUPROFEN 600 MG TAB PO STA (20:29)
== END 2019-07-07 21:00 | disposition home or self-care (01) ==
LOC: EC 15:19
DX: F41.0 Panic disorder [episodic paroxysmal anxiety] (principal); R45.851 Suicidal ideations; G89.29 Other chronic pain; M54.9 Dorsalgia, unspecified; E78.5 Hyperlipidemia, unspecified; I10 Essential (primary) hypertension; F31.9 Bipolar disorder, unspecified; F17.200 Nicotine dependence, unspecified, uncomplicated; Z88.0 Allergy status to penicillin
CPT/HCPCS: 36415; 80053; 85025; 99284; 96374; 96372; 96361; G0480; J2060; 80320

== ENCOUNTER → 2019-07-26 | Outpatient (CLI) | payer MEDICARE, OTHER ==
--- NOTE | 2019-07-26 14:59 | CONS ---
CONSULTATION DATE OF SERVICE: 07/26/2019 A 58-year-old lady who has been evaluated in the [facility] for sleep problems. HISTORY OF PRESENT ILLNESS/SLEEP-WAKE EVALUATION: Patient has difficulties with falling asleep all of her life, old alive was using Unisom and also Ambien up to 10 mg to help her to fall asleep. Presently her sleep schedule from around 9 p.m. until 6 a.m. She has TV set in bedroom. Sometimes she is watching her telephone in bedroom and reads also in bedroom. Usually she sleeps on the side position by herself. Occasionally she snores, has episodes of panic attacks, heartburn and restless legs. No history of hypnagogic hallucinations, sleep paralysis or cataplexy. Today, patient has problems with concentration, depression, anxiety, worry about her sleep. [place] Sleepiness Scale is 0. PAST SURGICAL HISTORY: x2, surgery left arm and right foot. SOCIAL HISTORY: Positive for smoking less than 1 pack a day for 15 years. Quit about 3 months ago. Alcohol consumption none. FAMILY HISTORY: Hypertension, hyperlipidemia, fibromyalgia, arthritis, snoring, acid reflux, mental illness, restless leg. Works abnormalities of you who has been diagnosed with fibromyalgia before noon. PAST MEDICAL HISTORY: Fibromyalgia, acid reflux, history of hypertension. PHYSICAL EXAM: lady without distress, BP 147/92, HR 74, RR 16, height 5 foot 1/2 inch, weight 136 pounds, body mass index 26.1, temperature 98.1, oxygen saturation at room air 97%. OROPHARYNX: Extremely low position of soft palate. Mallampati 4. Overbite around 4 mm. Neck 17-1/2 inches in circumference. Nose slightly asymmetric. NECK: Supple, no JVD. Thyroid is not palpable. LUNGS: Clear to percussion and to auscultation. Good air exchange. No wheezing or rhonchi. HEART: S1, S2 regular. No murmurs, gallops, or rubs. ABDOMEN: Soft and nontender. Bowel sounds are present. No organomegaly appreciated. EXTREMITIES: No clubbing or cyanosis. OUTSIDE B2B SALES: Awake, alert, and oriented X3. Cranial nerves 2 to 7 intact. There is no fasciculation or atrophy. noted. No focal deficits observed. IMPRESSION: 1. Insomnia with difficulties to initiate sleep secondary to psychophysiological and possible anxiety. 2. History of restless leg symptoms, possible periodic limb movements, which also could with the difficulties to initiate sleep. 3. Positive history of snoring, extremely low position of soft palate, significant overbite, possible obstructive sleep apnea-hypopnea syndrome. 4. History of hypertension. Blood pressure in the office today is slightly increased. 5. History of hyperlipidemia. 6. History of fibromyalgia. 7. History of acid reflux. 8. Degenerating disc problems. 9. Status post x2. 10.Status post left arm surgery. 11.Status post right foot surgery. PLAN: 1. Polysomnography for evaluation of patient's breathing during sleep. 2. CPAP/BiPAP titration if sleep study confirms obstructive sleep apnea-hypopnea syndrome. 3. Preferable position during sleep on the side. 4. No driving if patient feels any sleepiness. 5. I will see patient for follow up visit to explain results of testing and following plan. Sincerely, Srini Kline MD, PhD, FAASM Diplomat of [place] [employer] [place] [employer] [facility] Srini Kline MD, PhD, FAASM Diplomat of [place] [employer] [place] [employer] [facility] [facility] Additionally with this put I discussed with the patient. Psychological techniques for treatment of insomnia, which should include stimulus control, paradoxical intention worry time no watching clock in the future if the sleep study is negative for any physical abnormalities of sleep, possibly sleep restriction therapy thus insert remaining. MMODL / IJN: [id number] /
== END | disposition home or self-care (01) ==
LOC: SLEEP 13:19
PROVIDERS: ATTEND Internal Medicine
DX: G47.00 Insomnia, unspecified (principal); G25.81 Restless legs syndrome; Z82.49 Family history of ischemic heart disease and other diseases of the circulatory system; Z87.09 Personal history of other diseases of the respiratory system; Z86.39 Personal history of other endocrine, nutritional and metabolic disease; Z87.19 Personal history of other diseases of the digestive system; Z87.891 Personal history of nicotine dependence; Z98.890 Other specified postprocedural states
CPT/HCPCS: 99211

== ENCOUNTER 2019-08-07 13:51 | Inpatient (IN) | payer MEDICARE, MEDICAID ==
--- NOTE | 2019-08-07 14:31 | ED ---
Psych HPI - General Chief Complaint: Psychiatric Symptoms Stated Complaint: EPS eval Time Seen by Provider: 08/07/19 14:01 Source: patient, EMS, RN notes reviewed Limitations: no limitations - History of Present Illness Initial Comments: This a 59-year-old female presents emergency Department with chief complaint of depression and anxiety suicidal ideation. Patient reportedly had a knife threatening to harm herself. Patient states that she has been having major issues with last one year with her psychiatric issues after discontinuing all of her medications. She states that she is to be on Ambien, Percocet, Xanax and Abilify. Patient states that no be will prescribe her all of her medications. Patient denies any physical complaints. Patient states she is very anxious, tearful. Patient states she cannot live like this. - Related Data Home Medications Medication Instructions Recorded Confirmed Atenolol [Tenormin] 12.5 mg PO DAILY 08/07/19 08/07/19 Atorvastatin [Lipitor] 20 mg PO HS 08/07/19 08/07/19 Benztropine Mesylate [Cogentin] 1 mg PO HS 08/07/19 08/07/19 Mirtazapine [Remeron] 45 mg PO HS 08/07/19 08/07/19 OLANZapine [ZyPREXA] 20 mg PO HS 08/07/19 08/07/19 QUEtiapine [SEROquel] 100 mg PO HS 08/07/19 08/07/19 Ziprasidone [Geodon] 60 mg PO DAILY 08/07/19 08/07/19 Zolpidem [Ambien] 5 mg PO HS 08/07/19 08/07/19 lamoTRIgine [LaMICtal] 25 mg PO DAILY 08/07/19 08/07/19 rOPINIRole HCL [Requip] 0.25 mg PO HS 08/07/19 08/07/19 Allergies Allergy/AdvReac Type Severity Reaction Status Date / Time Penicillins Allergy Unknown Rash/Hives/ Verified 08/07/19 17:33 Itching Review of Systems ROS Statement: Those systems with pertinent positive or pertinent negative responses have been documented in the HPI. ROS Other: All systems not noted in ROS Statement are negative. Past Medical History Past Medical History: Hyperlipidemia, Hypertension Additional Past Medical History / Comment(s): occ migraines, hemorrhoids, degenerative disks L4 and L5 History of Any Multi-Drug Resistant Organisms: None Reported Past Surgical History: Appendectomy, Section, Orthopedic Surgery Additional Past Surgical History / Comment(s): LEFT ARM (POST TRAUMATIC INJURY) reattached, RIGHT FOOT X3, LEFT KNEE ARTHROSCOPY, left oophorectomy Past Anesthesia/Blood Transfusion Reactions: No Reported Reaction Past Psychological History: Anxiety, Bipolar, Depression, Panic Disorder Smoking Status: Current some day smoker Past Alcohol Use History: None Reported Past Drug Use History: None Reported - Past Family History Mother Family Medical History: No Reported History General Exam Limitations: no limitations General appearance: alert, in no apparent distress, anxious Head exam: Present: atraumatic, normocephalic, normal inspection Eye exam: Present: normal appearance, PERRL, EOMI. Absent: scleral icterus, conjunctival injection, periorbital swelling ENT exam: Present: normal exam, mucous membranes moist Neck exam: Present: normal inspection. Absent: tenderness, meningismus, lymphadenopathy Respiratory exam: Present: normal lung sounds bilaterally. Absent: respiratory distress, wheezes, rales, rhonchi, stridor Cardiovascular Exam: Present: normal rhythm, tachycardia, normal heart sounds. Absent: systolic murmur, diastolic murmur, rubs, gallop, clicks GI/Abdominal exam: Present: soft, normal bowel sounds. Absent: distended, tenderness, guarding, rebound, rigid Psychiatric exam: Present: agitated, anxious Course Vital Signs 08/07/19 08/07/19 08/07/19 13:55 15:43 18:15 Temperature 98.8 F 98.1 F Pulse Rate 126 H 118 H Pulse Rate [ 84 Left Sitting] Respiratory 32 H 32 H 18 Rate Blood Pressure 148/108 153/100 Blood Pressure 133/70 [Right Arm Sitting] O2 Sat by Pulse 98 98 97 Oximetry Medical Decision Making - Medical Decision Making Patient evaluated by EPS case discussed with psychiatrist recommends inpatient treatment for suicidal ideation. Disposition Clinical Impression: Bipolar disorder, Anxiety, Depression, Suicidal ideation Disposition: TRANSFER TO PSYCH HOSP/UNIT Condition: Fair
[2019-08-07] MEDS ORDERED: LORazepam 1 MG TAB PO STA (15:33)
[2019-08-07] MEDS ORDERED: MAG HYDROX/AL HYDROX/SIMETH 30 ML CUP PO PRN (18:05)
[2019-08-07] MEDS ORDERED: MAGNESIUM HYDROXIDE 2,400 MG/10 ML CUP PO PRN (18:05)
[2019-08-07] MEDS ORDERED: ACETAMINOPHEN TAB 325 MG TAB PO PRN (18:05)
[2019-08-07] MEDS ORDERED: LORazepam 2 MG/ML INJ IM PRN (18:10)
[2019-08-07] MEDS: NICOTINE 14MG/24HR PATCH TRANSDERM SCH (19:30)
[2019-08-07] MEDS: ATORVASTATIN 20 MG TAB PO SCH (21:04)
[2019-08-07] MEDS ORDERED: traZODone HCL 50 MG TAB PO PRN (21:23)
[2019-08-07] MEDS: LORazepam 1 MG TAB PO PRN (22:04)
[2019-08-08 08:43] LABS: Basophils # (A) 0.1 k/uL (0-0.2); Basophils % (A) 1 %; Eosinophils # (A) 0.2 k/uL (0-0.7); Eosinophils % (A) 2 %; HCT 45.2 % (34.0-46.0); HGB 14.7 gm/dL (11.4-16.0); Lymphocytes # (A) 2.7 k/uL (1.0-4.8); Lymphocytes % (A) 31 %; MCH 29.7 pg (25.0-35.0); MCHC 32.5 g/dL (31.0-37.0); MCV 91.4 fL (80.0-100.0); Monocytes # (A) 0.3 k/uL (0-1.0); Monocytes % (A) 4 %; Neutrophils # (A) 5.4 k/uL (1.3-7.7); Neutrophils % (A) 61 %; Platelet Count 275 k/uL (150-450); RBC 4.95 m/uL (3.80-5.40); RDW 12.3 % (11.5-15.5); WBC 8.8 k/uL (3.8-10.6)
[2019-08-08 08:59] LABS: ALT 21 U/L (9-52); AST 21 U/L (14-36); African American GFR (CKD) >90 (>60 ml/min/1.73 sqM); Albumin 4.2 g/dL (3.5-5.0); Alkaline Phosphatase 129 U/L (38-126); Anion Gap 11 mmol/L; Blood Urea Nitrogen 15 mg/dL (7-17); Calcium 9.8 mg/dL (8.4-10.2); Carbon Dioxide 23 mmol/L (22-30); Chloride 105 mmol/L (98-107); Cholesterol 256 mg/dL (<200); Glucose 148 mg/dL (74-99); HDL Cholesterol 44 mg/dL (40-60); LDL Cholesterol,Calculated 171 mg/dL (0-99); Non-African American GFR(CKD) >90 (>60 ml/min/1.73 sqM); Potassium 4.7 mmol/L (3.5-5.1); Sodium 139 mmol/L (137-145); Total Bilirubin 0.5 mg/dL (0.2-1.3); Total Protein 7.3 g/dL (6.3-8.2); Triglycerides 205 mg/dL (<150)
[2019-08-08] MEDS ORDERED: ATENOLOL 25 MG TAB PO SCH (09:00)
[2019-08-08] MEDS: NICOTINE 14MG/24HR PATCH TRANSDERM SCH (09:04)
[2019-08-08] MEDS: LORazepam 1 MG TAB PO PRN ×2 (10:03→20:09)
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
[2019-08-08 20:07] LABS: Hemoglobin A1C 6.5 % (4.0-6.0)
[2019-08-08] MEDS: ATORVASTATIN 20 MG TAB PO SCH (20:09)
[2019-08-08] MEDS: ARIPiprazole 10 MG TAB PO SCH (20:09)
[2019-08-08] MEDS ORDERED: traZODone HCL 100 MG TAB PO SCH (21:00)
[2019-08-09] MEDS: LORazepam 1 MG TAB PO PRN ×3 (03:46→20:43)
[2019-08-09] MEDS: NICOTINE 14MG/24HR PATCH TRANSDERM SCH (08:24)
[2019-08-09] MEDS: MELOXICAM 7.5 MG TAB PO SCH (08:24)
--- NOTE | 2019-08-09 10:43 | P.PN ---
Progress Note - Text Progress Note Date: 08/09/19 Clinical Problems: Bipolar disorder most recent episode depressed, unspecified anxiety disorder, tardive dyskinesia Interim history: I reviewed the medical record and interviewed the patient. She is a 59-year-old woman who has a history of a bipolar disorder She presented to the hospital with complaints of suicidal ideation as a result of insomnia and overwhelming anxiety. The source of her distress appears to have been her inability to be obtaining continued prescriptions for Ambien Xanax and Percocet. According to Dr. Bergman initial assessment she stopped her psychotropic medications several months ago and has not followed up with outpatient mental health services. During our interview she complained of continued insomnia despite 100 mg of trazodone at night. She requested that I continue Ambien, Xanax and Percocet as was prescribed by a primary care provider in the community. She alleged that she "needs" these medications because of all the other medications that she has been prescribed have been "ineffective". She denied that she had ever abused these medications and denied that she has ever experienced withdrawal symptoms. I explained our reluctance to prescribe these medications because they has a potential to cause dependence particularly when taken over a long period of time. Unfortunately, withdrawal symptoms for these medications worsened conditions for which they may have emerged been prescribed. For example, chronic use of Ambien will worsen insomnia when the medication was stopped. He similarly, Xanax and Percocet withdrawal which include increasing anxiety and worsening pain. I told that I supported Dr. Bergman's recommendation that she not continue these medications. I agreed to increase the trazodone for the treatment of her depressive symptoms and insomnia. Mental status exam: She presented as a small framed, frail and pale appearing elderly woman who was pleasant on approach. She made eye contact and attended to the interview. She had no distinguishing features or prominent physical abnormalities. She had a blunted but bright facial expression. She is alert and oriented to person, place and time. She showed slight psychomotor retardation but no apparent abnormal movements. Her speech was spontaneous with normal rate, rhythm and volume. Affect was depressed but stable and appropriate. She denied suicidal ideation, wishes or homicidal ideation. She denied feeling worthless, hopeless or helpless. She did not express ideas reference, paranoid ideation or delusional thoughts. Her thinking was abstract and associations were coherent, logical and goal directed. She perseverated about insomnia, anxiety, pain and the need to continue his prescriptions of benzodiazepines, hypnotics and opiate pain medications. Assessment: She appears moderately depressed but there is no evidence of psychotic symptoms. She complains of subjective anxiety but does not appear overly anxious. We suspect that she has become dependent on sedatives, hypnotics and opiate pain medications. Plan: Continue inpatient hospitalization. Continue safety precautions. Do not prescribe benzodiazepines, opiate pain medications or benzodiazepines/non- benzodiazepine did not ask. Continue Abilify 10 mg daily and titrated according to clinical response and tolerance. Increase trazodone at 150 mg at bedtime for treatment of insomnia, anxiety and depression. Continue Mobic 7.5 mg daily for pain. Encourage continued participation in therapeutic groups and activities. Evaluate clinical status response to treatment daily basis.
[2019-08-09] MEDS: ATORVASTATIN 20 MG TAB PO SCH (20:42)
[2019-08-09] MEDS: traZODone HCL 50 MG TAB PO SCH (20:42)
[2019-08-09] MEDS: ARIPiprazole 10 MG TAB PO SCH (20:42)
[2019-08-10] MEDS: NICOTINE 14MG/24HR PATCH TRANSDERM SCH (08:18)
[2019-08-10] MEDS: MELOXICAM 7.5 MG TAB PO SCH (08:18)
[2019-08-10] MEDS: LORazepam 1 MG TAB PO PRN ×2 (08:21→20:18)
--- NOTE | 2019-08-10 10:36 | P.PN ---
Progress Note - Text Progress Note Date: 08/10/19 Clinical Problems: Bipolar disorder most recent episode depressed, unspecified anxiety disorder, tardive dyskinesia Interim history: I reviewed the medical record and interviewed the patient. She stated that overall she is feeling much better since she was able to sleep last night. She has to be discharged on Tuesday because she has an appointment at [facility] at 10 AM. She also talked about having bought airline tickets to fly to [place] on August 21. Although she plans to live in [place] she has made no effort to coordinate her medical and psychiatric care. She is only aware of the number of "pain clinics" in the vicinity of her home. She complained of pain and alleged need for Percocets but did not request a prescription. She is taking when necessary Ativan on a regular basis. I explained that she needs to reduce the amount that she is taking because she will not get a prescription when she is discharged. She denied side effects to either the Abilify or the increased dose of trazodone. Mental status exam: She presented as a small framed, frail and pale appearing elderly woman who was pleasant on approach. She made eye contact and attended to the interview. She had no distinguishing features or prominent physical abnormalities. She had a blunted but bright facial expression. She is alert and oriented to person, place and time. She showed slight psychomotor retardation. She demonstrated mild intermittent choreiform movements of her legs. Her speech was spontaneous with normal rate, rhythm and volume. Affect was blunted but stable and appropriate. She denied suicidal ideation, wishes or homicidal ideation. She denied feeling worthless, hopeless or hel pless. She did not express ideas reference, paranoid ideation or delusional thoughts. Her thinking was abstract and associations were coherent, logical and goal directed. She did not perseverate about her need for opiate pain medications, benzodiazepines for anxiety or sedative/hypnotics for chronic insomnia. Assessment: She appears minimally depressed but there is no evidence of psychotic symptoms. She complains of subjective anxiety but her presentation is not consistent with the severity of the subjective complaint. We suspect that she has become dependent on sedatives, hypnotics and opiate pain medications. Plan: Continue inpatient hospitalization. Continue safety precautions. Do not prescribe benzodiazepines, opiate pain medications or benzodiazepines/non- benzodiazepine did not ask. Continue Abilify 10 mg daily and titrated according to clinical response and tolerance and trazodone at 150 mg at bedtime for treatment of insomnia, anxiety and depression. Continue Mobic 7.5 mg daily for pain. Encourage continued participation in therapeutic groups and activities. Evaluate clinical status response to treatment daily basis.
--- NOTE | 2019-08-10 16:53 | P.CONS ---
History of Present Illness - Reason for Consult Consult date: 08/08/19 - Chief Complaint suicidal - History of Present Illness Shirley Nieves is a 59 yo F with PMH of bipolar disorder, anxiety, tardive dyskinesia, chronic pain who presented to the ED with suicidal ideation. She states that she has been suffering severe anxiety and has not been able to sleep. That she told her roommate that she was planning on killing herself with a knife. The roommate called emergency services. Pt reports chronic low back pain and states that she used take percocet and xanax and felt that combination worked very well for her and she is frustrated that doctors have been unwilling to continue it. She has had inpatient psychiatric admission a few months ago for similar symptoms and after discharge was noncompliant with her medications. She states she plans to 'get away from it all' and move to [place] in a few weeks. Review of Systems All systems: negative Musculoskeletal: Reports low back pain, Reports neck pain Past Medical History Past Medical History: Hyperlipidemia, Hypertension Additional Past Medical History / Comment(s): occ migraines, hemorrhoids, degenerative disks L4 and L5 History of Any Multi-Drug Resistant Organisms: None Reported Past Surgical History: Appendectomy, Section, Orthopedic Surgery Additional Past Surgical History / Comment(s): LEFT ARM (POST TRAUMATIC INJURY) reattached, RIGHT FOOT X3, LEFT KNEE ARTHROSCOPY, left oophorectomy Past Anesthesia/Blood Transfusion Reactions: No Reported Reaction Past Psychological History: Anxiety, Bipolar, Depression, Panic Disorder Smoking Status: Former smoker Past Alcohol Use History: None Reported Additional Past Alcohol Use History / Comment(s): quit smoking 2015, smoked for 15 yrs, < 1 PPD Past Drug Use History: None Reported - Past Family History Mother Family Medical History: No Reported History Medications and Allergies Home Medications Medication Instructions Recorded Confirmed Type Atenolol [Tenormin] 12.5 mg PO DAILY 08/07/19 08/07/19 History Atorvastatin [Lipitor] 20 mg PO HS 08/07/19 08/07/19 History Benztropine Mesylate [Cogentin] 1 mg PO HS 08/07/19 08/07/19 History Mirtazapine [Remeron] 45 mg PO HS 08/07/19 08/07/19 History OLANZapine [ZyPREXA] 20 mg PO HS 08/07/19 08/07/19 History QUEtiapine [SEROquel] 100 mg PO HS 08/07/19 08/07/19 History Ziprasidone [Geodon] 60 mg PO DAILY 08/07/19 08/07/19 History Zolpidem [Ambien] 5 mg PO HS 08/07/19 08/07/19 History lamoTRIgine [LaMICtal] 25 mg PO DAILY 08/07/19 08/07/19 History rOPINIRole HCL [Requip] 0.25 mg PO HS 08/07/19 08/07/19 History Allergies Allergy/AdvReac Type Severity Reaction Status Date / Time Penicillins Allergy Unknown Rash/Hives/ Verified 08/07/19 17:33 Itching Physical Exam Vitals: Vital Signs Temp Pulse Resp BP BP 08/10/19 08:20 107 H 108/72 08/10/19 07:08 98.5 F 86 14 117/69 General: well nourished, well developed, NAD. Vitals reviewed Eyes: PERRL, EOMI, conjunctiva normal HENT: normocephalic, mucus membranes moist Neck: supple, no JVD Lungs: normal respiratory effort, no wheezes or rales CV: Regular rate and rhythm, no murmur. Peripheral pulses 2+ Abdomen: soft, nondistended, no organomegaly Lymph: no cervical or axillary LAD Skin: warm and dry. Neuro: A&Ox3, depressed mood, affect flat Results CBC & Chem 7: 08/08/19 08:13 08/08/19 08:13 Assessment and Plan (1) Primary osteoarthritis involving multiple joints Current Visit: Yes Status: Acute Code(s): M15.0 - PRIMARY GENERALIZED (OSTEO)ARTHRITIS SNOMED Code(s): 978163990 (2) Depression Current Visit: Yes Status: Acute Code(s): F32.9 - MAJOR DEPRESSIVE DISORDER, SINGLE EPISODE, UNSPECIFIED SNOMED Code(s): 87499220 (3) Suicidal ideation Current Visit: Yes Status: Acute Code(s): R45.851 - SUICIDAL IDEATIONS SNOMED Code(s): 4942884 (4) Bipolar 1 disorder, depressed Current Visit: No Status: Acute Priority: High Code(s): F31.9 - BIPOLAR DISORDER, UNSPECIFIED SNOMED Code(s): 33731109 Plan: 1. SI. BPD. Management per psychiatry 2. Back pain. Osteoarthritis. Mobic 15 mg qd, tylenol 650 mg qid prn 3. Tobacco abuse. Nicotine patch
[2019-08-10] MEDS: ARIPiprazole 10 MG TAB PO SCH (20:18)
[2019-08-10] MEDS: traZODone HCL 50 MG TAB PO SCH (20:18)
[2019-08-10] MEDS: ATORVASTATIN 20 MG TAB PO SCH (20:18)
[2019-08-11] MEDS: NICOTINE 14MG/24HR PATCH TRANSDERM SCH (08:17)
[2019-08-11] MEDS: MELOXICAM 7.5 MG TAB PO SCH (08:19)
[2019-08-11] MEDS: LORazepam 1 MG TAB PO PRN ×2 (08:19→20:13)
--- NOTE | 2019-08-11 12:51 | P.CON ---
Consult Note - . Consult date: 08/11/19 Assessment/Plan:: This is psychiatric progress note as a cross coverage for Dr. Rosenbaum Chief complaint: "I want to go home before Tuesday " Subjective: The patient has been seen today as follow-up, chart reviewed, case discussed with the treatment team. Patient reports fair sleep was no delay to go to sleep or interruption of her sleep. She denies any appetite problems. The patient is compliant with her medications and denies any adverse reactions. Patient reports feeling stable emotionally and he denies feeling depressed, hopeless, or suicidal. She denies any severe mood swings, or homicidal ideation. The patient denies any manic symptoms including sustained period of time with elevated or irritable mood, impulsive or irrational behavior, inflated self-esteem, or absence need to sleep due to increases goal-directed activities. The patient denies any auditory or visual hallucinations. Also the patient denies any paranoid ideation. Patient was very fixated on discharge and she reports that she had an appointment with [facility] on Tuesday. Objective: Vitals has been reviewed. Mental status examination; Appearance: The patient appears stated age, adequately groomed and dressed, no specific features. Gait/posture: Normal gait, Normal arm swinging: No abnormal movements. Attitude and behavior: Not fully engaged, upper facial cooperative, intermittent eye contact. Motor activity: Normal psychomotor activity Speech: Normal rate, tone. Mood: Anxious Affect: Constricted, to some degree blunted Thought form: goal-directed, linear, coherent. Thought content: Non-delusional, denies suicidal thoughts, denies homicidal thoughts, denies intentions or plans. Perception: Denies any auditory or visual hallucinations Attention: No impairment. Patient was able to repeat serial 5. Orientation: Patient patient was fully oriented to time place person and situation. Insight: Patient has fair insight about his psychiatric disorder. Judgment: Patient has fair judgment about his psychiatric treatment. Assessment and diagnosis: Patient reports a stabilization of her psychiatric symptoms and generally denies/minimizes psychiatric symptoms and she is very fixated on discharge. Bipolar 1 disorder most recent episode depressive. Unspecified anxiety disorder. Plan: Continue inpatient level of care due to further stabilization on medications Continue treatment of bipolar disorder Precautions: Continue 15 minutes check for safety. Consider medical consultation if any acute medical issues arise. Provide the patient individual, group therapy, substance use disorder counseling to give better insight and learn coping skills. Medications: Continue Abilify 10 mg daily for mood stabilization. Continue trazodone 150 mg at bedtime for insomnia and to help was an anxiety and depression. Discharge patient to OUTPATIENT services upon a stabilization
[2019-08-11] MEDS: traZODone HCL 50 MG TAB PO SCH (20:11)
[2019-08-11] MEDS: ATORVASTATIN 20 MG TAB PO SCH (20:11)
[2019-08-11] MEDS: ARIPiprazole 10 MG TAB PO SCH (20:11)
[2019-08-12] MEDS: NICOTINE 14MG/24HR PATCH TRANSDERM SCH (08:00)
[2019-08-12] MEDS: MELOXICAM 7.5 MG TAB PO SCH (08:00)
[2019-08-12] MEDS: LORazepam 1 MG TAB PO PRN ×2 (08:02→20:13)
--- NOTE | 2019-08-12 12:01 | P.PN ---
Progress Note - Text Progress Note Date: 08/12/19 This is psychiatric progress note as a cross coverage for Dr. Rosenbaum Chief complaint: "I am feeling good" Subjective: The patient has been seen today as follow-up, chart reviewed, case discussed with the treatment team. Patient reports a good sleep last night and as per chart review she slept 7 hours. She reports a good appetite and she has been going to groups and other unit activities. She denies feeling depressed, hopeless, or suicidal. She denies any mood swings, irritability, or agitation. She denies any manic or psychotic symptoms. She continued to take her psychiatric medications and denies any side effects. Patient was talking about her plan to move to [place] to stay with her boyfriend. She reports discussed with the unit social worker psychiatric earlier today transferring her psychiatric service to [place], and patient plans to discuss it further with [facility] after discharge. She reports willing to continue her psychiatric treatment and taking her psychiatric medications. Objective: Vitals has been reviewed. Mental status examination; Appearance: The patient appears stated age, adequately groomed and dressed, no specific features. Gait/posture: Normal gait, Normal arm swinging: No abnormal movements. Attitude and behavior: Not fully engaged, upper facial cooperative, intermittent eye contact. Motor activity: Normal psychomotor activity Speech: Normal rate, tone. Mood: "Fine" Affect: Constricted, to some degree blunted Thought form: goal-directed, linear, coherent. Thought content: Non-delusional, denies suicidal thoughts, denies homicidal thoughts, denies intentions or plans. Perception: Denies any auditory or visual hallucinations Attention: No impairment. Patient was able to repeat serial 5. Orientation: Patient patient was fully oriented to time place person and situation. Insight: Patient has fair insight about his psychiatric disorder. Judgment: Patient has fair judgment about his psychiatric treatment. Assessment and diagnosis: Patient reports a stabilization of her psychiatric symptoms and generally denies acute psychiatric symptoms and she is very fixated on discharge. Bipolar 1 disorder most recent episode depressive. Unspecified anxiety disorder. Plan: Continue inpatient level of care due to further stabilization on medications Continue treatment of bipolar disorder Precautions: Continue 15 minutes check for safety. Consider medical consultation if any acute medical issues arise. Provide the patient individual, group therapy, substance use disorder counseling to give better insight and learn coping skills. Medications: Continue Abilify 10 mg daily for mood stabilization. Continue trazodone 150 mg at bedtime for insomnia and to help was an anxiety and depression. Discharge patient to OUTPATIENT services upon a stabilization
[2019-08-12 16:56] LABS: Amorphous Sediment,Urine Few /hpf; Appearance,Urine Turbid (Clear); Bilirubin,Urine Negative (Negative); Blood,Urine Negative (Negative); Color,Urine Yellow; Glucose,Urine (UA) Negative (Negative); Ketones,Urine Negative (Negative); Leukocyte Esterase,Urine Negative (Negative); Nitrite,Urine Negative (Negative); Protein,Urine Negative (Negative); RBC,Urine 2 /hpf (0-5); Specific Gravity,Urine 1.015 (1.001-1.035); Squamous Epithelial Cell,Urine 9 /hpf (0-4); Urobilinogen,Urine <2.0 mg/dL (<2.0); WBC,Urine 1 /hpf (0-5)
[2019-08-12 17:03] LABS: Amphetamine Screen,Urine Not Detected (NotDetected); Barbiturate Screen,Urine Not Detected (NotDetected); Benzodiazepines Screen,Urine Detected (NotDetected); Cocaine Screen,Urine Not Detected (NotDetected); Methadone Screen, Urine Not Detected (NotDetected); Opiate Screen,Urine Not Detected (NotDetected); Oxycodone Screen, Urine Not Detected (NotDetected); Phencyclidine Screen,Urine Not Detected (NotDetected); Tricyclic Antidepressant,Urine Not Detected (NotDetected); Urn Cannabinoid Scrn Not Detected (NotDetected)
[2019-08-12] MEDS: ARIPiprazole 10 MG TAB PO SCH (20:11)
[2019-08-12] MEDS: ATORVASTATIN 20 MG TAB PO SCH (20:11)
[2019-08-12] MEDS: traZODone HCL 50 MG TAB PO SCH (20:11)
[2019-08-12 20:15] VITALS: RESP 16
[2019-08-13 06:45] VITALS: BP 114/56; PULSE 74; TEMP 97.7
[2019-08-13] MEDS: NICOTINE 14MG/24HR PATCH TRANSDERM SCH (08:23)
[2019-08-13] MEDS: LORazepam 1 MG TAB PO PRN (08:25)
[2019-08-13] MEDS: MELOXICAM 7.5 MG TAB PO SCH (08:25)
--- NOTE | 2019-08-13 09:02 | P.DS ---
Providers Date of admission: 08/07/19 17:58 Expected date of discharge: 08/13/19 Attending physician: Shin Bergman Consults: 08/07/19 18:05 Consult Physician Routine Consulting Provider: Valentín Miller Consult Reason/Comments: H&P and medical and pain and diabetes Do you want consulting provider notified?: Yes Primary care physician: Kelin Stevenson - Discharge Diagnosis(es) (1) Bipolar 1 disorder, depressed Current Visit: No Status: Acute Priority: High (2) Anxiety Current Visit: Yes Status: Acute Priority: Medium Hospital Course: Brief summary of admission note: This patient is a 59-year-old female who was admitted to the mental health unit through the emergency room for suicidal ideation. The patient had presented reporting feeling overwhelmed by ongoing insomnia and anxiety and threatened to stab herself with a knife. She indicated she had not slept for 6 nights. She had gestured with a knife in front of her roommate who called the patient's sister later called 911. The patient indicated that she need to be placed back on Ambien Xanax and Percocet. She indicated she had been presenting to different physicians trying to get them to prescribe this combination of medications without success. She described a history of bipolar 1 disorder describe any history of manic episodes as well as depressive episodes. For full details ple ase refer to my psychiatric evaluation dated 08/08/2019. Summary of hospital course: The patient was admitted to the mental health unit voluntarily. We reviewed her presenting symptoms and treatment options. We decided that we would start her back on Abilify for mood stabilization at 10 mg at bedtime. We restarted her trazodone at 100 mg at bedtime. The trazodone was titrated to 150 mg at bedtime in my absence. She was seen by Dr. Rosenbaum and Dr. Key in my absence. Please refer to their progress notes for further detail. The patient was seen by internal medicine for routine history and physical exam. Social work met with the patient to complete a psychosocial assessment and for discharge planning purposes. The patient states that her mood has been stabilizing over the last several days. She indicates that she has no suicidal ideation intent or plan. She reports no hopelessness thinking. She spontaneously reports that she is looking forward to moving to [place] on August 21. She has a friend willing to pick her up from the mental health unit today and bring her to her [facility] appointment. Middle status exam: The patient is alert she is dressed in her own clothing h ygiene grooming adequate. Eye contact is appropriate speech is fluent spontaneous nonpressured. She indicates her mood is much improved. She denies having any suicidal or homicidal ideation intent or plan. She reports no hopelessness thinking. Spontaneously she describes future oriented thinking specifically referring to make it to her appointment today and moving to [place] on August 21. She is reporting no auditory or visual hallucinations or any specific delusions. There is no observed evidence of psychosis. She demonstrates no tangential thinking loose associations or flight of ideas. She does not appear hypomanic or manic. She demonstrates no verbal or physical aggressiveness. She does continue to demonstrate repetitive involuntary movements mostly involving her mouth. There is tongue protrusion noticed. She is oriented to person place and date. Insight and judgment have improved. Impressions 1. Bipolar 1 disorder most recent depressed, anxiety unspecified, tardive dyskinesia Plan: The patient will continue on Abilify 10 mg daily. We discussed the potential benefits and side effects of this medication including involuntary movements and contributing to tardive dyskinesia. She has been on numerous other medications to treat her bipolar disorder and feels that the Abilify is the only one that is effective and tolerable. She will continue on trazodone 15 0 mg at bedtime. Several times we discussed the importance of her abstaining from any habit-forming medications including benzodiazepines and opiates. We discussed possibly using Vistaril to help with anxiety but she states she would like to wait until she goes to [facility] to discuss that further. At this time there is no imminent safety risk she is appropriate for transition outpatient care. She is instructed to return to the hospital with any acute safety concerns. Patient Condition at Discharge: Stable Plan - Discharge Summary Discharge Rx Participant: No New Discharge Prescriptions: New ARIPiprazole [Abilify] 10 mg PO HS #30 tab traZODone HCL [Desyrel] 150 mg PO HS #45 tab Nicotine 14Mg/24Hr Patch [Habitrol] 1 patch TRANSDERM DAILY #14 patch Meloxicam [Mobic] 7.5 mg PO DAILY #30 tab Continue Atorvastatin [Lipitor] 20 mg PO HS Discontinued Zolpidem [Ambien] 5 mg PO HS Ziprasidone [Geodon] 60 mg PO DAILY lamoTRIgine [LaMICtal] 25 mg PO DAILY QUEtiapine [SEROquel] 100 mg PO HS Benztropine Mesylate [Cogentin] 1 mg PO HS rOPINIRole HCL [Requip] 0.25 mg PO HS OLANZapine [ZyPREXA] 20 mg PO HS Mirtazapine [Remeron] 45 mg PO HS Atenolol [Tenormin] 12.5 mg PO DAILY Discharge Medication List Atorvastatin [Lipitor] 20 mg PO HS 08/07/19 [History] ARIPiprazole [Abilify] 10 mg PO HS #30 tab 08/13/19 [Rx] Meloxicam [Mobic] 7.5 mg PO DAILY #30 tab 08/13/19 [Rx] Nicotine 14Mg/24Hr Patch [Habitrol] 1 patch TRANSDERM DAILY #14 patch 08/13/19 [Rx] traZODone HCL [Desyrel] 150 mg PO HS #45 tab 08/13/19 [Rx] Follow up Appointment(s)/Referral(s): [facility] [Outside] - 08/14/19 10:00 am Kelin Stevenson MD [Primary Care Provider] - 1-2 days Patient Instructions/Handouts: Suicide Prevention (DC) Activity/Diet/Wound Care/Special Instructions: Activity and diet as tolerated. Avoid the use of street drugs and alcohol. Take all medications as prescribed. When you are in need of refills on your medications please contact your medical provider and/or outpatient psychiatrist to have this done. Please go to scheduled outpatient appointment for aftercare treatment. If symptoms return or become worse, call the crisis line at and/or go to the nearest emergency room for evaluation.
[2019-08-13 10:00] LABS: Urine Alcohol Negative (Negative); Urine Barbiturate Negative (Negative); Urine Cocaine Negative (Negative); Urine Methadone Negative (Negative); Urine Opiates Negative (Negative); Urine Phencyclidine Negative (Negative)
== END 2019-08-13 11:28 | disposition home or self-care (01) | DRG 885 ==
LOC: EC 13:51 → 3MHU 17:58
PROVIDERS: ADMIT Psychiatry & Neurology Psychiatry; ATTEND Psychiatry & Neurology Psychiatry
DX: F31.30 Bipolar disorder, current episode depressed, mild or moderate severity, unspecified (principal); F11.23 Opioid dependence with withdrawal; R45.851 Suicidal ideations; E11.9 Type 2 diabetes mellitus without complications; E78.5 Hyperlipidemia, unspecified; F17.200 Nicotine dependence, unspecified, uncomplicated; F41.0 Panic disorder [episodic paroxysmal anxiety]; G25.81 Restless legs syndrome; G47.00 Insomnia, unspecified; G89.29 Other chronic pain; I10 Essential (primary) hypertension; M19.91 Primary osteoarthritis, unspecified site; Z79.899 Other long term (current) drug therapy; Z90.721 Acquired absence of ovaries, unilateral; Z91.14 Patient's other noncompliance with medication regimen; Z88.0 Allergy status to penicillin
CPT/HCPCS: 80053; 80061; 80306; 81001; 82075; 83036; 84443; 85025; 99284

== ENCOUNTER 2019-11-08 15:49 | Observation (INO) | payer MEDICARE, OTHER ==
[2019-11-08] MEDS ORDERED: SODIUM CHLORIDE 0.9% 1,000 ML IV STA (15:59)
[2019-11-08] MEDS ORDERED: SODIUM CHLORIDE 0.9% 500 ML 500 ML IV STA (15:59)
[2019-11-08] MEDS ORDERED: ALPRAZolam 0.25 MG TAB PO STA ×2 (16:00→18:11)
--- NOTE | 2019-11-08 16:10 | ED ---
General Adult HPI - General Chief complaint: Syncope Stated complaint: Syncope, Bradycardia Time Seen by Provider: 11/08/19 15:50 Source: patient, RN/MD, EMS, RN notes reviewed Mode of arrival: EMS Limitations: no limitations - History of Present Illness Initial comments: This is a 59-year-old female who presents from her doctor's office by EMS with complaints of single episode patient having issues with 6 months or she'll have what appears be orthostatic hypotensive type of social too fast 3 days ago she fell on her back no head or neck injuries no loss of function of her lower extremities she is found have a heart rate of 41 and today she was sent here for further evaluation. He has had also some intermittent shows a retrosternal chest discomfort. None at this time. No cough fevers chills or sweatS. - Related Data Home Medications Medication Instructions Recorded Confirmed Atorvastatin [Lipitor] 20 mg PO HS 08/07/19 08/07/19 Previous Rx's Medication Instructions Recorded ARIPiprazole [Abilify] 10 mg PO HS #30 tab 08/13/19 Meloxicam [Mobic] 7.5 mg PO DAILY #30 tab 08/13/19 Nicotine 14Mg/24Hr Patch [Habitrol] 1 patch TRANSDERM DAILY #14 patch 08/13/19 traZODone HCL [Desyrel] 150 mg PO HS #45 tab 08/13/19 Allergies Allergy/AdvReac Type Severity Reaction Status Date / Time Penicillins Allergy Unknown Rash/Hives/ Verified 11/08/19 15:59 Itching Review of Systems ROS Statement: Those systems with pertinent positive or pertinent negative responses have been documented in the HPI. ROS Other: All systems not noted in ROS Statement are negative. Past Medical History Past Medical History: Hyperlipidemia, Hypertension Additional Past Medical History / Comment(s): occ migraines, hemorrhoids, degenerative disks L4 and L5 History of Any Multi-Drug Resistant Organisms: None Reported Past Surgical History: Appendectomy, Section, Orthopedic Surgery Additional Past Surgical History / Comment(s): LEFT ARM (POST TRAUMATIC INJURY) reattached, RIGHT FOOT X3, LEFT KNEE ARTHROSCOPY, left oophorectomy Past Anesthesia/Blood Transfusion Reactions: No Reported Reaction Past Psychological History: Anxiety, Bipolar, Depression, Panic Disorder Smoking Status: Current every day smoker Past Alcohol Use History: None Reported Past Drug Use History: None Reported - Past Family History Mother Family Medical History: No Reported History General Exam - General Exam Comments Initial Comments: This is a well-developed well-nourished awake alert oriented 3 female Limitations: no limitations General appearance: alert, in no apparent distress Head exam: Present: atraumatic, normocephalic, normal inspection Eye exam: Present: normal appearance, PERRL, EOMI. Absent: scleral icterus, conjunctival injection, periorbital swelling ENT exam: Present: mucous membranes dry Neck exam: Absent: tenderness, meningismus, lymphadenopathy Respiratory exam: Present: normal lung sounds bilaterally. Absent: respiratory distress, wheezes, rales, rhonchi, stridor Cardiovascular Exam: Present: normal rhythm, bradycardia, normal heart sounds. Absent: systolic murmur, diastolic murmur, rubs, gallop, clicks GI/Abdominal exam: Present: soft, normal bowel sounds. Absent: distended, tenderness, guarding, rebound, rigid Extremities exam: Present: normal inspection, full ROM, normal capillary refill. Absent: tenderness, pedal edema, joint swelling, calf tenderness Back exam: Present: normal inspection Neurological exam: Present: alert, oriented X3, CN II-XII intact Psychiatric exam: Present: normal affect, normal mood Skin exam: Present: warm, dry, intact, normal color. Absent: rash Course Vital Signs 11/08/19 15:50 Temperature 98.1 F Pulse Rate 57 L Respiratory 18 Rate Blood Pressure 136/73 O2 Sat by Pulse 98 Oximetry EKG Findings - EKG Results: EKG: interpreted by ERMD, sinus rhythm (Sinus rhythm 48. Interval 164 QRS 76 QT since QTC 454/45 nonspecific T-wave configuration this is compared with an EKG submitted from the office as well as that of the EMS personnel and transported the patient.) Medical Decision Making - Medical Decision Making Patient will be admitted for evaluation by cardiology for symptomatic bradycardia case is discussed with Dr. Miller Disposition Clinical Impression: Syncope, Dehydration, Bradycardia Disposition: ADMITTED IP TO THIS HOSP Condition: Fair Referrals: Kelin Stevenson MD [Primary Care Provider] - 1-2 days
[2019-11-08] MEDS ORDERED: NALOXONE 0.4 MG/ML 1 ML VIAL IV PRN (16:51)
--- NOTE | 2019-11-08 16:52 | XR ---
EXAMINATION TYPE: XR chest 2V DATE OF EXAM: 11/08/2019 COMPARISON: 01/02/2012 HISTORY: Bradycardia and syncope TECHNIQUE: Frontal and lateral views of the chest are obtained. FINDINGS: There is no focal air space opacity, pleural effusion, or pneumothorax seen. The cardiac silhouette size is within normal limits. The osseous structures are intact. IMPRESSION: No acute cardiopulmonary process.
[2019-11-08 16:57] LABS: Basophils % (A) 0 %; Eosinophils # (A) 0.2 k/uL (0-0.7); Eosinophils % (A) 2 %; HCT 44.3 % (34.0-46.0); HGB 14.6 gm/dL (11.4-16.0); Lymphocytes # (A) 4.2 k/uL (1.0-4.8); Lymphocytes % (A) 53 %; MCH 29.2 pg (25.0-35.0); MCHC 32.9 g/dL (31.0-37.0); MCV 88.8 fL (80.0-100.0); Mean Platelet Volume 8.1; Monocytes # (A) 0.4 k/uL (0-1.0); Monocytes % (A) 5 %; Neutrophils # (A) 2.7 k/uL (1.3-7.7); Neutrophils % (A) 35 %; Platelet Count 271 k/uL (150-450); RBC 4.99 m/uL (3.80-5.40); RDW 12.5 % (11.5-15.5); WBC 7.9 k/uL (3.8-10.6)
[2019-11-08 17:05] LABS: ALT 16 U/L (4-34); AST 26 U/L (14-36); African American GFR (CKD) >90 (>60 ml/min/1.73 sqM); Albumin 4.6 g/dL (3.5-5.0); Alkaline Phosphatase 115 U/L (38-126); Anion Gap 9 mmol/L; Blood Urea Nitrogen 20 mg/dL (7-17); Calcium 9.9 mg/dL (8.4-10.2); Carbon Dioxide 25 mmol/L (22-30); Chloride 100 mmol/L (98-107); Creatine Kinase 43 U/L (30-135); Glucose 103 mg/dL (74-99); Magnesium 1.8 mg/dL (1.6-2.3); Non-African American GFR(CKD) 84 (>60 ml/min/1.73 sqM); Potassium 5.2 mmol/L (3.5-5.1); Sodium 134 mmol/L (137-145); Total Bilirubin 0.3 mg/dL (0.2-1.3); Total Protein 7.6 g/dL (6.3-8.2)
[2019-11-08] MEDS: SODIUM CHLORIDE 0.9% 1,000 ML IV SCH (17:13)
[2019-11-08 17:26] LABS: Partial Thromboplastin Time 25.1 sec (22.0-30.0); Prothrombin Time 10.3 sec (9.0-12.0)
[2019-11-08] MEDS ORDERED: ACETAMINOPHEN TAB 500 MG TAB PO PRN (18:13)
[2019-11-08] MEDS: ATORVASTATIN 20 MG TAB PO SCH ×2 (20:01→20:02)
[2019-11-08] MEDS ORDERED: ARIPiprazole 10 MG TAB PO SCH (21:00)
[2019-11-08] MEDS ORDERED: traZODone HCL 50 MG TAB PO SCH (21:00)
[2019-11-08] MEDS ORDERED: clonazePAM 0.5 MG TAB PO PRN (22:39)
[2019-11-08] MEDS: oxyCODONE-APAP 10-325MG 1 EACH TAB PO PRN (22:53)
[2019-11-09] MEDS: SODIUM CHLORIDE 0.9% 1,000 ML IV SCH ×2 (03:38→14:53)
[2019-11-09] MEDS: oxyCODONE-APAP 10-325MG 1 EACH TAB PO PRN ×3 (05:23→15:15)
[2019-11-09 06:41] LABS: African American GFR (CKD) >90 (>60 ml/min/1.73 sqM); Anion Gap 4 mmol/L; Blood Urea Nitrogen 16 mg/dL (7-17); Calcium 8.7 mg/dL (8.4-10.2); Carbon Dioxide 22 mmol/L (22-30); Chloride 109 mmol/L (98-107); Glucose 105 mg/dL (74-99); Non-African American GFR(CKD) >90 (>60 ml/min/1.73 sqM); Potassium 4.5 mmol/L (3.5-5.1); Sodium 135 mmol/L (137-145)
[2019-11-09 09:00] LABS: Cholesterol 296 mg/dL (<200); HDL Cholesterol 33 mg/dL (40-60); LDL Cholesterol,Calculated 185 mg/dL (0-99); Triglycerides 391 mg/dL (<150)
[2019-11-09] MEDS ORDERED: MELOXICAM 7.5 MG TAB PO SCH (09:00)
[2019-11-09] MEDS ORDERED: NICOTINE 14MG/24HR PATCH TRANSDERM SCH (09:00)
[2019-11-09] MEDS ORDERED: SODIUM CHLORIDE 0.9% 1,000 ML in EMPTY BAG 1 BAG IV ONE (10:46)
[2019-11-09] MEDS ORDERED: NITROGLYCERIN SL TABS 0.4 MG TAB SUBLINGUAL PRN (10:46)
[2019-11-09] MEDS: ALPRAZolam 0.25 MG TAB PO PRN ×2 (11:01→15:15)
--- NOTE | 2019-11-09 11:50 | ECHOF ---
Referral Reason:cp, ekg changes MEASUREMENTS -------- HEIGHT: 154.9 cm WEIGHT: 65.3 kg BP: 107/67 RVIDd: 2.8 cm (< 3.3) IVSd: 1.1 cm (0.6 - 1.1) LVIDd: 4.0 cm (3.9 - 5.3) LVPWd: 1.1 cm (0.6 - 1.1) IVSs: 1.6 cm LVIDs: 2.5 cm LVPWs: 1.5 cm LA Diam: 3.4 cm (2.7 - 3.8) LAESV Index (A-L): 24.35 ml/m Ao Diam: 2.9 cm (2.0 - 3.7) AV Cusp: 2.0 cm (1.5 - 2.6) MV EXCURSION: 10.933 mm (> 18.000) MV EF SLOPE: 95 mm/s (70 - 150) EPSS: 0.2 cm MV E Pato: 1.14 m/s MV DecT: 208 ms MV A Pato: 0.79 m/s MV E/A Ratio: 1.43 RAP: 5.00 mmHg RVSP: 28.65 mmHg TAPSE: 22.78 mm FINDINGS -------- Resting bradycardia (HR<60bpm). This was a technically good study. The left ventricular size is normal. There is borderline concentric left ventricular hypertrophy. Overall left ventricular systolic function is normal with, an EF between 60 - 65 %. The right ventricle is normal in size and function. Normal LA size by volume 22+/-6 ml/m2. The right atrium is normal in size. Lipomatous Hypertrophy of the atrial septum is present The aortic valve is trileaflet and appears structurally normal. There is trace mitral regurgitation. Mild tricuspid regurgitation present. Right ventricular systolic pressure is normal at < 35 mmHg. Trace/mild (physiologic) pulmonic regurgitation. The aortic root size is normal. Normal inferior vena cava with normal inspiratory collapse consistent with estimated right atrial pre ssure of 5 mmHg. There is no pericardial effusion. CONCLUSIONS -------- 1. Resting bradycardia (HR<60bpm). 2. This was a technically good study. 3. The left ventricular size is normal. 4. There is borderline concentric left ventricular hypertrophy. 5. Overall left ventricular systolic function is normal with, an EF between 60 - 65 %. 6. The right ventricle is normal in size and function. 7. Normal LA size by volume 22+/-6 ml/m2. 8. The right atrium is normal in size. 9. Lipomatous Hypertrophy of the atrial septum is present 10. The aortic valve is trileaflet and appears structurally normal. 11. There is trace mitral regurgitation. 12. Mild tricuspid regurgitation present. 13. Right ventricular systolic pressure is normal at < 35 mmHg. 14. Trace/mild (physiologic) pulmonic regurgitation. 15. The aortic root size is normal. 16. Normal inferior vena cava with normal inspiratory collapse consistent with estimated right atrial pressure of 5 mmHg. 17. There is no pericardial effusion. HYDRAULIC ELEVATOR CONSTRUCTOR: Shea Keyes RDCS
--- NOTE | 2019-11-09 12:24 | P.CRDCN ---
History of Present Illness History of present illness: HISTORY OF PRESENTING ILLNESS This is a pleasant 59-year-old female past medical history significant for hypertension, dyslipdiemia, psychiatric illness and chronic nicotine depend ence. She denies prior history of coronary artery disease and does not follow in the office with a treating and pumping supervisor for any reason. We have been asked to see in consultation for chest pain. She states she was at her PCP office yesterday for a routine visit and was describing to her physician that she has been passing out randomly in the last 6 months. She states the this occurs typically immediately after standing. Upon standing she feel light headed, nauseated and subsequently loses consciousness momentarily. She denies feeling chest pain, shortness of breath or palpitations surrounding these episodes. She also describes exertional burning in her chest in the mid-sternal region. She states it causes her to have to sit down and rest and then the pain subsides. No radiation or associated symptoms. Currently chest pain free. DIAGNOSTICS EKG reveals sinus bradycardia heart rate 48 with T-wave changes in the precoridal leads, changed from previous EKG. Telemetry tracings reveal persistent sinus bradycardia heart rate in the 40s. Chest xray negative for an acute cardiopulmonary process. Laboratory reviewed, CBC unremarkable, sodium 135, potassium 4.5, creatinine 0.67, cardiac enzymes negative 3, LDL 185 and TSH 2.8. Current cardiac medications include atorvastatin 20 mg daily and clonidine 0.2 mg daily. REVIEW OF SYSTEMS At the time of my exam: CONSTITUTIONAL: Denies fever or chills. CARDIOVASCULAR: Denies chest pain, shortness of breath, orthopnea, PND or palpitations. RESPIRATORY: Denies cough. GASTROINTESTINAL: Denies abdominal pain, diarrhea, constipation, nausea or vomiting. MUSCULOSKELETAL: Denies myalgias. NEUROLOGIC: Denies numbness, tingling or weakness. ENDOCRINE: Denies fatigue, weight change, polydipsia or polyurina. GENITOURINARY: Denies burning, hematuria or urgency with micturation. HEMATOLOGIC: Denies history of anemia or bleeding. PHYSICAL EXAMINATION Blood pressure 107/67 heart rate 63 afebrile and maintaining oxygen saturation on room air. CONSTITUTIONAL: No apparent distress. HEENT: Head is normocephalic. Pupils are equal, round. Sclerae anicteric. Mucous membranes of the mouth are moist. No JVD. No carotid bruit. CHEST EXAMINATION: Lungs are clear to auscultation. No chest wall tenderness is noted on palpation or with deep breathing. HEART EXAMINATION: Regular rate and rhythm. S1, S2 heard. No murmurs, gallops or rub. ABDOMEN: Soft, nontender. Positive bowel sounds. EXTREMITIES: 2+ peripheral pulses, no lower extremity edema and no calf tenderness. NEUROLOGIC EXAMINATION: Patient is awake, alert and oriented x3. ASSESSMENT Chest pain suggestive of unstable angina with EKG abnormalities noted on admission Sinus bradycardia Dizziness and syncope suggestive of orthostatic hypotension Dyslipidemia Chronic nicotine dependence PLAN Check for orthostatic changes. Obtain 2-D echocardiogram and Doppler study to assess cardiac structure and function. Discontinue clonidine, this could be causing hypotension as well as bradycardia. Increase atorvastatin to 80 mg daily. Recommend proceeding with coronary angiography to assess for underlying coronary artery disease. I have discussed the risks, benefits and alternative therapies f or the above-mentioned procedure and for both sedation/analgesia as well as necessary blood product administration, if indicated, as they pertain to this patient. The patient has indicated understanding and acceptance of the risks and procedures discussed. Questions have been answered appropriately and she is agreeable to move forward with the above-stated procedure. Smoking cessation recommended. Further recommendations to follow. Thank you kindly for this consultation. Nurse Practitioner note has been reviewed, I agree with a documented findings and plan of care. Patient was seen and examined. Past Medical History Past Medical History: Hyperlipidemia, Hypertension Additional Past Medical History / Comment(s): occ migraines, hemorrhoids, degenerative disks L4 and L5 History of Any Multi-Drug Resistant Organisms: None Reported Past Surgical History: Appendectomy, Section, Orthopedic Surgery Additional Past Surgical History / Comment(s): LEFT ARM (POST TRAUMATIC INJURY) reattached, RIGHT FOOT X3, LEFT KNEE ARTHROSCOPY, left oophorectomy, hemorroidectomy Past Anesthesia/Blood Transfusion Reactions: No Reported Reaction Past Psychological History: Anxiety, Bipolar, Depression, Panic Disorder Smoking Status: Current every day smoker Past Alcohol Use History: None Reported Past Drug Use History: None Reported - Past Family History Mother Family Medical History: No Reported History Medications and Allergies Home Medications Medication Instructions Recorded Confirmed Type ARIPiprazole [Abilify] 10 mg PO DAILY 11/08/19 11/08/19 History Atorvastatin Calcium [Lipitor] 20 mg PO DAILY 11/08/19 11/08/19 History QUEtiapine [SEROquel] 100 mg PO HS 11/08/19 11/08/19 History cloNIDine HCL [Catapres] 0.2 mg PO DAILY 11/08/19 11/08/19 History traZODone HCL 100 mg PO HS 11/08/19 11/08/19 History Allergies Allergy/AdvReac Type Severity Reaction Status Date / Time Penicillins Allergy Unknown Rash/Hives/ Verified 11/08/19 17:57 Itching Physical Exam Vitals: Vital Signs Temp Pulse Pulse Pulse Resp BP BP 11/09/19 07:23 97.6 F 62 107/67 11/09/19 04:00 98.0 F 56 L 16 107/64 11/08/19 23:52 97.9 F 53 L 18 93/53 11/08/19 19:32 97.8 F 58 L 16 127/72 11/08/19 17:36 97.5 F L 51 L 126/81 11/08/19 17:00 49 L 18 129/67 11/08/19 15:50 98.1 F 57 L 18 136/73 Pulse Ox 11/09/19 07:23 98 11/09/19 04:00 96 11/08/19 23:52 97 11/08/19 19:32 97 11/08/19 17:36 100 11/08/19 17:00 98 11/08/19 15:50 98 Intake and Output 11/08/19 11/09/19 11/09/19 22:59 06:59 14:59 Intake Total 500 0 Balance 500 0 Intake: Intake, IV Titration 500 Amount Sodium Chloride 0.9% 500 500 ml 500 ml @ 999 mls/hr IV .Q31M STA Rx#:[id number] Oral 0 Other: Voiding Method Toilet Toilet # Voids 1 1 Weight 63.049 kg 65.5 kg Results 11/08/19 16:20 11/09/19 05:44 Cardiac Enzymes 11/08/19 11/08/19 11/08/19 Range/Units 16:20 16:20 22:17 AST 26 (14-36) U/L Troponin I <0.012 <0.012 (0.000-0.034) ng/mL 11/09/19 Range/Units 05:44 AST (14-36) U/L Troponin I <0.012 (0.000-0.034) ng/mL Coagulation 11/08/19 Range/Units 16:57 PT 10.3 (9.0-12.0) sec APTT 25.1 (22.0-30.0) sec CBC 11/08/19 Range/Units 16:20 WBC 7.9 (3.8-10.6) k/uL RBC 4.99 (3.80-5.40) m/uL Hgb 14.6 (11.4-16.0) gm/dL Hct 44.3 (34.0-46.0) % Plt Count 271 (150-450) k/uL Comprehensive Metabolic Panel 11/08/19 11/09/19 Range/Units 16:20 05:44 Sodium 134 L 135 L (137-145) mmol/L Potassium 5.2 H 4.5 (3.5-5.1) mmol/L Chloride 100 109 H (98-107) mmol/L Carbon Dioxide 25 22 (22-30) mmol/L BUN 20 H 16 (7-17) mg/dL Creatinine 0.78 0.67 (0.52-1.04) mg/dL Glucose 103 H 105 H (74-99) mg/dL Calcium 9.9 8.7 (8.4-10.2) mg/dL AST 26 (14-36) U/L ALT 16 (4-34) U/L Alkaline Phosphatase 115 (38-126) U/L Total Protein 7.6 (6.3-8.2) g/dL Albumin 4.6 (3.5-5.0) g/dL Current Medications Generic Name Dose Route Start Last Admin Trade Name Freq PRN Reason Stop Dose Admin Acetaminophen 1,000 mg 11/08/19 18:13 11/08/19 20:00 Tylenol Tab PO 1,000 mg TID PRN Administration Fever and/ or Pain Aripiprazole 10 mg 11/08/19 21:00 11/08/19 20:01 Abilify PO 10 mg HS BARRY Administration Atorvastatin Calcium 20 mg 11/08/19 21:00 11/08/19 20:02 Lipitor PO 20 mg HS BARRY Administration Clonazepam 0.5 mg 11/08/19 22:39 11/08/19 22:53 Klonopin PO 0.5 mg HS PRN Administration Insomnia Sodium Chloride 1,000 mls @ 80 mls/hr 11/08/19 17:00 11/09/19 03:38 Saline 0.9% IV Not Given .[id number] BARRY Meloxicam 7.5 mg 11/09/19 09:00 Mobic PO DAILY BARRY Naloxone HCl 0.2 mg 11/08/19 16:51 Narcan IV Q2M PRN Opioid Reversal Nicotine 1 patch 11/09/19 09:00 Habitrol 14mg/24hr Patch TRANSDERM DAILY BARRY Oxycodone/Acetaminophen 1 each 11/08/19 22:36 11/09/19 05:23 Percocet 10-325 PO 1 each Q6H PRN Administration Pain Trazodone HCl 150 mg 11/08/19 21:00 11/08/19 22:09 Desyrel PO 150 mg HS BARRY Administration Intake and Output 11/08/19 11/09/19 11/09/19 22:59 06:59 14:59 Intake Total 500 0 Balance 500 0 Intake: Intake, IV Titration 500 Amount Sodium Chloride 0.9% 500 500 ml 500 ml @ 999 mls/hr IV .Q31M STA Rx#:[id number] Oral 0 Other: Voiding Method Toilet Toilet # Voids 1 1 Weight 63.049 kg 65.5 kg 11/08/19 16:20 11/09/19 05:44
[2019-11-09] MEDS ORDERED: ATORVASTATIN 40 MG TAB PO ONE (12:30)
[2019-11-09] MEDS ORDERED: ATORVASTATIN 40 MG TAB PO SCH (12:30)
[2019-11-09] MEDS ORDERED: HEPARIN SODIUM 1,000 UN/ML (10ML VL) ONE (14:24)
[2019-11-09] MEDS ORDERED: LIDOCAINE 1% INJ 10MG/ML (20 ML MDV) ONE (14:24)
[2019-11-09] MEDS ORDERED: VERAPAMIL 2.5 MG/ML 2 ML AMP ONE (14:24)
[2019-11-09] MEDS ORDERED: ASPIRIN 325 MG TAB ONE (14:31)
[2019-11-09] MEDS ORDERED: SODIUM CHLORIDE 0.9% 300 ML IV ONE (14:33)
[2019-11-09] MEDS ORDERED: ASPIRIN 325 MG TAB PO ONE (14:33)
[2019-11-09] MEDS ORDERED: LIDOCAINE 1% INJ 10MG/ML (20 ML MDV) SQ ONE (14:40)
[2019-11-09] MEDS ORDERED: MIDAZOLAM 2 MG/2 ML VIAL IV ONE (14:40)
[2019-11-09] MEDS ORDERED: VERAPAMIL SYRINGE (5 MG/10 ML) INTRAARTER ONE (14:43)
[2019-11-09] MEDS ORDERED: HYDROmorphone 1 MG/ML 1 ML SYRINGE ONE (14:44)
[2019-11-09] MEDS ORDERED: HYDROmorphone 1 MG/ML 1 ML SYRINGE IVP ONE (14:46)
[2019-11-09] MEDS ORDERED: IOPAMIDOL-370 125ML BTL INJ ONE (14:49)
[2019-11-09] MEDS ORDERED: RX INFO: IV CONTRAST WAS GIVEN 1 EACH MISC MISCELLANE PRN (14:54)
[2019-11-09] MEDS ORDERED: SODIUM CHLORIDE 0.9% 1,000 ML IV SCH (15:00)
[2019-11-09 17:25] VITALS: PULSE 78; TEMP 97.8
[2019-11-09 17:26] VITALS: BP 130/59; RESP 16
--- NOTE | 2019-11-09 18:42 | CC ---
CARDIAC CATHETERIZATION REPORT DATE OF SERVICE: 11/09/2019 PERFORMING PHYSICIAN: Romel Henao M.D. PROCEDURES PERFORMED: 1. Selective right and left coronary angiogram. 2. Left heart catheterization. INDICATION: This is a very pleasant 59-year-old female patient who was admitted to the hospital with chest discomfort suggestive of unstable angina. She was brought today to undergo a heart catheterization. She was seen by Dr. Sinclair. APPROACH: Right radial artery. COMPLICATIONS: None. LEVEL OF SEDATION: Moderate, with sedation length of 15 minutes. PROCEDURE DESCRIPTION: After obtaining informed consent, the patient was brought to the cardiac prosthetic lab technician. The right radial artery was cannulated using micropuncture technique. The micropuncture wire passed easily. Then I placed a 5-Armenian sheath. After that I gave the patient 2 mg of verapamil IA and 6000 units of heparin IV. Subsequently I did selective right and left coronary angiogram using JR4 and JR3.5. Left heart catheterization was performed using a JL3.5 catheter which crossed the aortic valve and it had pullback across the aortic valve. The procedure was completed without any complication. SELECTIVE CORONARY ANGIOGRAM: 1. The right coronary artery is a large-caliber vessel. It is a dominant vessel. It is angiographically normal. 2. The left main is angiographically normal. It bifurcates into LCX and LAD. 3. The LCX is a large-caliber vessel. It is a nondominant vessel and appeared to be angiographically normal. It gives rise in the mid portion to a large OM branch, which seems to be normal. 4. The LAD. The proximal LAD appears to be normal. The mid and distal LAD are normal as well. HEMODYNAMICS: The LVEDP was about 20 mmHg without significant gradient across the aortic valve. CONCLUSION: 1. Normal coronary angiogram. 2. Elevated LVEDP. POST-PROCEDURE MANAGEMENT: 1. Medical treatment. 2. Follow up with the patient. MMODL / IJN: [id number] /
[2019-11-10] MEDS ORDERED: ATORVASTATIN 80 MG TAB PO SCH (09:00)
--- NOTE | 2019-11-14 09:20 | P.HPIM ---
History of Present Illness H&P Date: 11/09/19 Chief Complaint: chest pain Shirley Nieves is a 59 yo F with PMH significant for hypertension, dyslipdiemia, psychiatric illness and chronic nicotine dependence. She denies prior history of coronary artery disease and does not follow in the office with a cut off man for any reason. We have been asked to see in consultation for chest pain. She states she was at her PCP office yesterday for a routine visit and was describing to her physician that she has been passing out randomly in the last 6 months. She states the this occurs typically immediately after standing. Upon standing she feel light headed, nauseated and subsequently loses consciousness momentarily. She denies feeling chest pain, shortness of breath or palpitations surrounding these episodes. She also describes exertional burning in her chest in the mid-sternal region. She states it causes her to have to sit down and rest and then the pain subsides. No radiation or associated symptoms. Currently chest pain free. Review of Systems All systems: negative Constitutional: Denies chills, Denies fever Eyes: denies blurred vision, denies pain Ears, nose, mouth and throat: Denies headache, Denies sore throat Cardiovascular: Reports chest pain, Denies shortness of breath Respiratory: Denies cough Gastrointestinal: Denies abdominal pain, Denies diarrhea, Denies nausea, Denies vomiting Genitourinary: Denies dysuria, Denies hematuria Musculoskeletal: Denies myalgias Integumentary: Denies pruritus, Denies rash Neurological: Denies numbness, Denies weakness Psychiatric: Denies anxiety, Denies depression Endocrine: Denies fatigue, Denies weight change Past Medical History Past Medical History: Hyperlipidemia, Hypertension Additional Past Medical History / Comment(s): occ migraines, hemorrhoids, d egenerative disks L4 and L5 History of Any Multi-Drug Resistant Organisms: None Reported Past Surgical History: Appendectomy, Section, Orthopedic Surgery Additional Past Surgical History / Comment(s): LEFT ARM (POST TRAUMATIC INJURY) reattached, RIGHT FOOT X3, LEFT KNEE ARTHROSCOPY, left oophorectomy, hemorroidectomy Past Anesthesia/Blood Transfusion Reactions: No Reported Reaction Past Psychological History: Anxiety, Bipolar, Depression, Panic Disorder Smoking Status: Current every day smoker Past Alcohol Use History: None Reported Past Drug Use History: None Reported - Past Family History Mother Family Medical History: No Reported History Medications and Allergies Home Medications Medication Instructions Recorded Confirmed Type ARIPiprazole [Abilify] 10 mg PO DAILY 11/08/19 11/08/19 History QUEtiapine [SEROquel] 100 mg PO HS 11/08/19 11/08/19 History cloNIDine HCL [Catapres] 0.2 mg PO DAILY 11/08/19 11/08/19 History traZODone HCL 100 mg PO HS 11/08/19 11/08/19 History Atorvastatin [Lipitor] 80 mg PO HS #30 tab 11/09/19 Rx Allergies Allergy/AdvReac Type Severity Reaction Status Date / Time Penicillins Allergy Unknown Rash/Hives/ Verified 11/08/19 17:57 Itching Physical Exam Vitals: Vital Signs Temp Pulse Pulse Pulse Resp BP BP 11/09/19 17:25 16 130/59 11/09/19 16:39 97.8 F 78 18 132/56 11/09/19 16:00 16 124/82 11/09/19 15:40 123/68 11/09/19 15:25 144/68 11/09/19 15:10 97.7 F 64 130/103 11/09/19 12:00 97.6 F 63 153/88 11/09/19 09:33 11/09/19 07:23 97.6 F 62 107/67 11/09/19 04:00 98.0 F 56 L 16 107/64 11/08/19 23:52 97.9 F 53 L 18 93/53 BP BP BP Pulse Ox 11/09/19 17:25 99 11/09/19 16:39 97 11/09/19 16:00 11/09/19 15:40 11/09/19 15:25 11/09/19 15:10 100 11/09/19 12:00 100 11/09/19 09:33 136/82 135/83 117/75 11/09/19 07:23 98 11/09/19 04:00 96 11/08/19 23:52 97 Intake and Output 11/09/19 11/09/19 11/09/19 06:59 14:59 22:59 Intake Total 0 450 Balance 0 450 Intake: IV 150 Intake, IV Titration 300 Amount Sodium Chloride 0.9% 1, 300 000 ml @ 100 mls/hr IV . Q10H STA Rx#:[id number] Oral 0 Other: Voiding Method Toilet Toilet Toilet # Voids 1 Weight 65.5 kg Gen.: Well-developed, well-nourished female in no acute distress HEENT: Normocephalic, atraumatic, mucous membranes moist Neck: Supple, no thyromegaly, no JVD Lymph: No cervical or axillary lymphadenopathy CV: Regular rate and rhythm, no murmur, pulses 2+ Lungs: Normal inspiratory effort, clear throughout Abdomen: Soft, nontender, nondistended Neuro: Alert and oriented 3, no focal deficits Skin: Warm and dry Results CBC & Chem 7: 11/08/19 16:20 11/09/19 05:44 Labs: Abnormal Lab Results - Last 24 Hours (Table) 11/09/19 11/09/19 Range/Units 05:44 05:44 Sodium 135 L (137-145) mmol/L Chloride 109 H (98-107) mmol/L Glucose 105 H (74-99) mg/dL Triglycerides 391 H (<150) mg/dL Cholesterol 296 H (<200) mg/dL LDL Cholesterol, Calc 185 H (0-99) mg/dL HDL Cholesterol 33 L (40-60) mg/dL Thrombosis Risk Factor Assmnt - Choose All That Apply Any of the Below Risk Factors Present?: Yes Each Factor Represents 1 point: Age 41-60 years, Obesity (BMI >25) Other Risk Factors: No Thrombosis Risk Factor Assessment Total Risk Factor Score: 2 Thrombosis Risk Factor Assessment Level: Low Risk Assessment and Plan (1) Chest pain Status: Acute Code(s): R07.9 - CHEST PAIN, UNSPECIFIED SNOMED Code(s): 29 217425 Plan: 1. Chest pain. ACS ruled out. Cardiology consult for further evaluation 2. Bipolar disorder. Continue Abilify and trazodone
== END 2019-11-09 17:57 | disposition home or self-care (01) ==
LOC: EC 15:49 → 1SOBS 17:09
PROVIDERS: ADMIT Family Medicine; ATTEND Family Medicine
DX: R07.9 Chest pain, unspecified (principal); R00.1 Bradycardia, unspecified; R55 Syncope and collapse; E86.0 Dehydration; I10 Essential (primary) hypertension; E78.5 Hyperlipidemia, unspecified; M51.36 Other intervertebral disc degeneration, lumbar region; F41.9 Anxiety disorder, unspecified; F31.9 Bipolar disorder, unspecified; F17.200 Nicotine dependence, unspecified, uncomplicated; Z88.0 Allergy status to penicillin; Z79.899 Other long term (current) drug therapy; Z90.49 Acquired absence of other specified parts of digestive tract; Z90.721 Acquired absence of ovaries, unilateral
CPT/HCPCS: 93005 ×2; 99285; 36415; 93306; 93458; 80061; 80053; 80048; 82550; 83735; 84443; 84484 ×2; 85025; 85610; 85730; 71046; G0378 ×2; C1769; C1894; S4990; J2250; J2001; J1170; J1644; Q9967

== ENCOUNTER 2020-06-19 13:12 | Inpatient (IN) | payer MEDICARE, MEDICAID ==
--- NOTE | 2020-06-19 14:02 | ED ---
General Adult HPI - General Chief complaint: Psychiatric Symptoms Stated complaint: Mental Health Time Seen by Provider: 06/19/20 13:27 Source: patient, police, RN notes reviewed Mode of arrival: ambulatory Limitations: no limitations - History of Present Illness Initial comments: Patient is a pleasant 59 year old female presenting to the emergency department for mental health evaluation. Patient states at times she had does miss her medications and has done so recently. Patient states she reportedly was going into [employer] mailboxes. Reportedly patient was going in and out of people's cars and training get into houses. Patient denies any hallucinations. Patient denies suicidal or homicidal thoughts. Patient denies alcohol or street drug us e. Patient states she does have history of similar problems previously associated with her mental health problems. Patient states at this time she feels fine and denies any confusion. - Related Data Home Medications Medication Instructions Recorded Confirmed QUEtiapine [SEROquel] 100 mg PO DAILY 11/08/19 06/19/20 traZODone HCL 100 mg PO HS 11/08/19 06/19/20 ARIPiprazole [Abilify] 5 mg PO DAILY 06/19/20 06/19/20 Benztropine Mesylate [Cogentin] 1 mg PO HS 06/19/20 06/19/20 Naproxen Sodium [Aleve] 220 mg PO DAILY PRN 06/19/20 06/19/20 QUEtiapine [SEROquel] 50 mg PO HS 06/19/20 06/19/20 Allergies Allergy/AdvReac Type Severity Reaction Status Date / Time Penicillins Allergy Unknown Rash/Hives/ Verified 06/19/20 14:10 Itching Review of Systems ROS Statement: Those systems with pertinent positive or pertinent negative responses have been documented in the HPI. ROS Other: All systems not noted in ROS Statement are negative. Constitutional: Denies: fever Eyes: Denies: eye pain ENT: Denies: ear pain Respiratory: Denies: cough Cardiovascular: Denies: chest pain Endocrine: Denies: fatigue Gastrointestinal: Denies: abdominal pain Genitourinary: Denies: dysuria Musculoskeletal: Denies: back pain Skin: Denies: rash Neurological: Denies: weakness Psychiatric: Reports: as per HPI. Denies: homicidal thoughts, suicidal thoughts Past Medical History Past Medical History: Hyperlipidemia, Hypertension Additional Past Medical History / Comment(s): occ migraines, hemorrhoids, degenerative disks L4 and L5 History of Any Multi-Drug Resistant Organisms: None Reported Past Surgical History: Appendectomy, Section, Orthopedic Surgery Additional Past Surgical History / Comment(s): LEFT ARM (POST TRAUMATIC INJURY) reattached, RIGHT FOOT X3, LEFT KNEE ARTHROSCOPY, left oophorectomy, hemorroide ctomy Past Anesthesia/Blood Transfusion Reactions: No Reported Reaction Past Psychological History: Anxiety, Bipolar, Depression, Panic Disorder Smoking Status: Current every day smoker Past Alcohol Use History: None Reported Past Drug Use History: None Reported - Past Family History Mother Family Medical History: No Reported History General Exam Limitations: no limitations General appearance: alert, in no apparent distress Head exam: Present: normocephalic Eye exam: Present: normal appearance, PERRL Neck exam: Present: normal inspection Respiratory exam: Present: normal lung sounds bilaterally Cardiovascular Exam: Present: regular rate, normal rhythm GI/Abdominal exam: Present: soft. Absent: tenderness Extremities exam: Present: normal inspection Neurological exam: Present: alert, oriented X3, CN II-XII intact. Absent: motor sensory deficit Expanded Neurological exam: Present: protecting the airway Patient oriented to: Present: person, place, time Speech: Present: fluid speech Cranial nerves: EOM's Intact: Normal Motor strength exam: RUE: 5, LUE: 5, RLE: 5, LLE: 5 Eye Response: (4) open spontaneously Motor Response: (6) obeys commands Verbal Response: (5) oriented Psychiatric exam: Present: normal affect, normal mood Skin exam: Present: normal color Course Vital Signs 06/19/20 06/19/20 13:18 22:39 Temperature 99.3 F 98.3 F Pulse Rate 80 700 H Respiratory 18 16 Rate Blood Pressure 114/66 146/68 O2 Sat by Pulse 93 L 97 Oximetry Medical Decision Making - Medical Decision Making Patient was seen by mental health services with plan for admission - Lab Data Result diagrams: 06/20/20 07:55 06/20/20 07:55 Lab Results 06/19/20 06/19/20 Range/Units 17:33 17:33 Urine Color Light Yellow Urine Appearance Clear (Clear) Urine pH 7.0 (5.0-8.0) Ur Specific [place] 1.006 (1.001-1.035) Urine Protein Negative (Negative) Urine Glucose (UA) Negative (Negative) Urine Ketones Negative (Negative) Urine Blood Negative (Negative) Urine Nitrite Negative (Negative) Urine Bilirubin Negative (Negative) Urine Urobilinogen <2.0 (<2.0) mg/dL Ur Leukocyte Esterase Negative (Negative) Urine Opiates Screen Not Detected (NotDetected) Ur Oxycodone Screen Not Detected (NotDetected) Urine Methadone Screen Not Detected (NotDetected) Ur Propoxyphene Screen Not Detected (NotDetected) Ur Barbiturates Screen Not Detected (NotDetected) U Tricyclic Antidepress Detected H (NotDetected) Ur Phencyclidine Scrn Not Detected (NotDetected) Ur Amphetamines Screen Not Detected (NotDetected) U Methamphetamines Scrn Not Detected (NotDetected) U Benzodiazepines Scrn Not Detected (NotDetected) Urine Cocaine Screen Detected H (NotDetected) U Marijuana (THC) Screen Detected H (NotDetected) Disposition Clinical Impression: Acute psychosis Disposition: TRANSFER TO PSYCH HOSP/UNIT Is patient prescribed a controlled substance at d/c from ED?: No
[2020-06-19 18:02] LABS: Amphetamine Screen,Urine Not Detected (NotDetected); Barbiturate Screen,Urine Not Detected (NotDetected); Benzodiazepines Screen,Urine Not Detected (NotDetected); Cocaine Screen,Urine Detected (NotDetected); Methadone Screen, Urine Not Detected (NotDetected); Opiate Screen,Urine Not Detected (NotDetected); Oxycodone Screen, Urine Not Detected (NotDetected); Phencyclidine Screen,Urine Not Detected (NotDetected); Tricyclic Antidepressant,Urine Detected (NotDetected); Urn Cannabinoid Scrn Detected (NotDetected)
[2020-06-19] MEDS ORDERED: ALPRAZolam 1 MG TAB PO STA (21:26)
[2020-06-19] MEDS ORDERED: ZIPRASIDONE 20 MG VIAL IM PRN (22:31)
[2020-06-19] MEDS ORDERED: MAG HYDROX/AL HYDROX/SIMETH 30 ML CUP PO PRN (22:31)
[2020-06-19] MEDS ORDERED: LORazepam 2 MG/ML INJ IM PRN (22:41)
[2020-06-19 22:53] LABS: Appearance,Urine Clear (Clear); Bilirubin,Urine Negative (Negative); Blood,Urine Negative (Negative); Color,Urine Light Yellow; Glucose,Urine (UA) Negative (Negative); Ketones,Urine Negative (Negative); Leukocyte Esterase,Urine Negative (Negative); Nitrite,Urine Negative (Negative); Protein,Urine Negative (Negative); Specific Gravity,Urine 1.006 (1.001-1.035); Urobilinogen,Urine <2.0 mg/dL (<2.0)
[2020-06-20] MEDS: QUEtiapine 50 MG TAB PO SCH ×2 (00:28→02:44)
[2020-06-20] MEDS: LORazepam 1 MG TAB PO PRN ×3 (02:44→16:23)
[2020-06-20 08:42] LABS: Basophils # (A) 0.1 k/uL (0-0.2); Basophils % (A) 1 %; Eosinophils # (A) 0.2 k/uL (0-0.7); Eosinophils % (A) 2 %; HCT 47.2 % (34.0-46.0); Lymphocytes # (A) 3.1 k/uL (1.0-4.8); Lymphocytes % (A) 37 %; MCH 29.5 pg (25.0-35.0); MCHC 31.7 g/dL (31.0-37.0); MCV 92.9 fL (80.0-100.0); Mean Platelet Volume 7.7; Monocytes # (A) 0.3 k/uL (0-1.0); Monocytes % (A) 4 %; Neutrophils # (A) 4.6 k/uL (1.3-7.7); Neutrophils % (A) 55 %; Platelet Count 294 k/uL (150-450); RBC 5.08 m/uL (3.80-5.40); RDW 12.9 % (11.5-15.5); WBC 8.4 k/uL (3.8-10.6)
[2020-06-20 08:52] LABS: ALT 11 U/L (4-34); AST 27 U/L (14-36); African American GFR (CKD) >90 (>60 ml/min/1.73 sqM); Albumin 4.3 g/dL (3.5-5.0); Alkaline Phosphatase 129 U/L (38-126); Anion Gap 8 mmol/L; Blood Urea Nitrogen 16 mg/dL (7-17); Calcium 9.8 mg/dL (8.4-10.2); Carbon Dioxide 24 mmol/L (22-30); Chloride 108 mmol/L (98-107); Cholesterol 213 mg/dL (<200); Glucose 95 mg/dL (74-99); HDL Cholesterol 34 mg/dL (40-60); LDL Cholesterol,Calculated 145 mg/dL (0-99); Non-African American GFR(CKD) >90 (>60 ml/min/1.73 sqM); Potassium 4.6 mmol/L (3.5-5.1); Sodium 140 mmol/L (137-145); Total Bilirubin 0.7 mg/dL (0.2-1.3); Total Protein 7.6 g/dL (6.3-8.2); Triglycerides 170 mg/dL (<150)
--- NOTE | 2020-06-20 11:50 | P.HP ---
Psychiatric H&P - . H&P Date: 06/20/20 History & Physical: Allergies Allergy/AdvReac Type Severity Reaction Status Date / Time Penicillins Allergy Unknown Rash/Hives/ Verified 06/19/20 14:10 Itching Vital Signs Temp 97.7 F 06/20/20 04:45 Pulse 81 06/20/20 04:45 Resp 16 06/20/20 04:45 BP 93/54 06/20/20 04:45 Pulse Ox 98 06/20/20 04:45 Intake & Output 06/19/20 06/20/20 06/20/20 18:59 06:59 18:59 Weight 54.431 kg Laboratory Last Values WBC 8.4 k/uL (3.8-10.6) 06/20/20 07:55 RBC 5.08 m/uL (3.80-5.40) 06/20/20 07:55 Hgb 15.0 gm/dL (11.4-16.0) 06/20/20 07:55 Hct 47.2 % (34.0-46.0) H 06/20/20 07:55 MCV 92.9 fL (80.0-100.0) 06/20/20 07:55 MCH 29.5 pg (25.0-35.0) 06/20/20 07:55 MCHC 31.7 g/dL (31.0-37.0) 06/20/20 07:55 RDW 12.9 % (11.5-15.5) 06/20/20 07:55 Plt Count 294 k/uL (150-450) 06/20/20 07:55 Neutrophils % 55 % 06/20/20 07:55 Lymphocytes % 37 % 06/20/20 07:55 Monocytes % 4 % 06/20/20 07:55 Eosinophils % 2 % 06/20/20 07:55 Basophils % 1 % 06/20/20 07:55 Neutrophils # 4.6 k/uL (1.3-7.7) 06/20/20 07:55 Lymphocytes # 3.1 k/uL (1.0-4.8) 06/20/20 07:55 Monocytes # 0.3 k/uL (0-1.0) 06/20/20 07:55 Eosinophils # 0.2 k/uL (0-0.7) 06/20/20 07:55 Basophils # 0.1 k/uL (0-0.2) 06/20/20 07:55 Sodium 140 mmol/L (137-145) 06/20/20 07:55 Potassium 4.6 mmol/L (3.5-5.1) 06/20/20 07:55 Chloride 108 mmol/L (98-107) H 06/20/20 07:55 Carbon Dioxide 24 mmol/L (22-30) 06/20/20 07:55 Anion Gap 8 mmol/L 06/20/20 07:55 BUN 16 mg/dL (7-17) 06/20/20 07:55 Creatinine 0.68 mg/dL (0.52-1.04) 06/20/20 07:55 Est GFR (CKD-EPI)AfAm >90 (>60 ml/min/1.73 sqM) 06/20/20 07:55 Est GFR (CKD-EPI)NonAf >90 (>60 ml/min/1.73 sqM) 06/20/20 07:55 Glucose 95 mg/dL (74-99) 06/20/20 07:55 Calcium 9.8 mg/dL (8.4-10.2) 06/20/20 07:55 Total Bilirubin 0.7 mg/dL (0.2-1.3) 06/20/20 07:55 AST 27 U/L (14-36) 06/20/20 07:55 ALT 11 U/L (4-34) 06/20/20 07:55 Alkaline Phosphatase 129 U/L (38-126) H 06/20/20 07:55 Total Protein 7.6 g/dL (6.3-8.2) 06/20/20 07:55 Albumin 4.3 g/dL (3.5-5.0) 06/20/20 07:55 Triglycerides 170 mg/dL (<150) H 06/20/20 07:55 Cholesterol 213 mg/dL (<200) H 06/20/20 07:55 LDL Cholesterol, Calc 145 mg/dL (0-99) H 06/20/20 07:55 HDL Cholesterol 34 mg/dL (40-60) L 06/20/20 07:55 TSH 3.980 mIU/L (0.465-4.680) 06/20/20 07:55 Urine Color Light Yellow 06/19/20 17:33 Urine Appearance Clear (Clear) 06/19/20 17:33 Urine pH 7.0 (5.0-8.0) 06/19/20 17:33 Ur Specific [place] 1.006 (1.001-1.035) 06/19/20 17:33 Urine Protein Negative (Negative) 06/19/20 17:33 Urine Glucose (UA) Negative (Negative) 06/19/20 17:33 Urine Ketones Negative (Negative) 06/19/20 17:33 Urine Blood Negative (Negative) 06/19/20 17:33 Urine Nitrite Negative (Negative) 06/19/20 17: Urine Bilirubin Negative (Negative) 06/19/20 17:33 Urine Urobilinogen <2.0 mg/dL (<2.0) 06/19/20 17:33 Ur Leukocyte Esterase Negative (Negative) 06/19/20 17:33 Urine Opiates Screen Not Detected (NotDetected) 06/19/20 17:33 Ur Oxycodone Screen Not Detected (NotDetected) 06/19/20 17:33 Urine Methadone Screen Not Detected (NotDetected) 06/19/20 17:33 Ur Propoxyphene Screen Not Detected (NotDetected) 06/19/20 17:33 Ur Barbiturates Screen Not Detected (NotDetected) 06/19/20 17:33 U Tricyclic Antidepress Detected (NotDetected) H 06/19/20 17:33 Ur Phencyclidine Scrn Not Detected (NotDetected) 06/19/20 17:33 Ur Amphetamines Screen Not Detected (NotDetected) 06/19/20 17:33 U Methamphetamines Scrn Not Detected (NotDetected) 06/19/20 17:33 U Benzodiazepines Scrn Not Detected (NotDetected) 06/19/20 17:33 Urine Cocaine Screen Detected (NotDetected) H 06/19/20 17:33 U Marijuana (THC) Screen Detected (NotDetected) H 06/19/20 17:33 06/20/20 11:33 IDENTIFYING DATA: Patient is a 59-year-old female with a significant history of bipolar disorder who was admitted for mental health evaluation. HPI: Patient presented to the hospital on 06/19/2020 accompanied by police after displaying odd and impulsive behaviors. As repetition, with multiple illnesses observed the patient trying to get in random cars including ones that were occupied. Patient was noted to be very disoriented. She is also been noted in the certificate that she has been trying to walk and to others' houses. Patient is very disorganized at this time and history is limited. Patient appears fixated on her roommate stating that she owes her roommate $650. She does endorse symptoms of elevated energy, impulsivity, and increased goal-directed behavior. She states last night was the first that she slept over the last few weeks. She reports sleeping only 3 hours last night. She states that prior to this admission, she was feeling relatively depressed and her friend gave her 3 lines of Cocaine to do. She has had multiple psychiatric admissions in the past with the last being on 08/08/2019 for suicidal ideation. She has been monitored with the medications and reports that she has tried multiple medications in the past but that no one is prescribing what she wants. She expresses a strong disdain for multiple medications due to concerns of weight gain. Patient reports a history of depression as well as manic episodes. She is not endorsing any significant symptoms of depression today. She is denying any suicidal or homicidal ideation, intention, and/or plan. She does endorse a history of panic attacks. In regards to substance use, patient endorses using cocaine. She is not reporting any other drug use. She denies any alcohol. PAST PSYCHIATRIC HISTORY: Patient states that she has been diagnosed with bipolar disorder. She reports multiple trials of medications including Risperdal, Depakote, lithium, Tegretol, Haldol, Xanax, Cogentin, Lexapro, and Seroquel. She is had multiple psychiatric admissions. She was admitted to [facility] 25 years ago after overdose. She was previously admitted here on [facility] in February and July 2019. Patient reports that she does have outpatient psychiatric follow-up is uncertain where and when. She reports 2 prior attempts at suicide in the past with the last being in July. PMH: Migraines, hypertension, chronic back pain ALLERGIES: Penicillin CHEMICAL DEPENDENCY HISTORY: as per HPI FAMILY PSYCHIATRIC/SUBSTANCE USE HISTORY: Maternal grandmothers don't have bipolar disorder. No previous suicides in the family. SOCIAL HISTORY: Patient was born and raised in [facility] [place] [facility] and moved to [place] about 10 years ago. She currently lives with a roommate named Reyes. She is and has 3 adult children. She has attended some college. MENTAL STATUS EXAM: General Appearance: Patient appears to be older than stated age is alert, directable, and attempts to cooperate. Patient appears to have poor hygiene and grooming. Behavior: Patient is seated without any agitated behavior. Psychomotor activity is elevated. Patient has a reported history of tardive dyskinesia but does not appear evident at this time. Speech: Patient's speech is pressured, spontaneous, and tangential. Mood/Affect: Patient reports their mood is "okay", affect is anxious and expansive. Suicidality/Homicidality: Patient denies having any homicidal ideation intent or plan. Denies any suicidal ideations intent or plan Perceptions: Patient denies any visual hallucinations and denies any auditory hallucinations Though content/process: Flight of ideas, disorganized. Memory and concentration: Patient is alert and oriented to person and place but not time. Could not assess for concentration. Judgment and insight: poor STRENGTHS/WEAKNESSES: strength is that patient is housing, and income. Weakness is that patient has a history of noncompliance with mental health treatment, poor insight, and engages in substance use INTELLECT: average IMPRESSIONS: Bipolar 1 disorder, most recent episode manic Anxiety disorder unspecified PLAN: -Patient is admitted under voluntary status to [facility] for stabilization of psychiatric symptoms and safety. A second certification was completed and along with petition will be filed for court. -Medications : Will start patient on Niarada 150 mg by mouth twice a day for mood stabilization Increase Seroquel to 300 mg by mouth at bedtime for mood stabilization Will consider Invega for the patient to transition to a long-acting injectable medication as patient has history of non-adherence to treatment. -Ativan and Geodon PRN for agitation/aggression -Patient was counselled on substance abuse and appears to be pre-contemplative on cutting back use. -Patient was informed of the risks, benefits and side effects of the medication and patient verbally consented to taking the medications. Patient signed med consent form and was placed in chart. -Internal Medicine consult to perform medical evaluation and physical. -SW on board for discharge planning. Encourage patient to participate in groups to work on coping skills.
[2020-06-20] MEDS: NAPROXEN 250 MG TAB PO PRN (12:47)
[2020-06-20] MEDS: ACETAMINOPHEN TAB 325 MG TAB PO PRN (14:09)
[2020-06-20 19:06] LABS: Hemoglobin A1C 6.6 % (4.0-6.0)
[2020-06-20] MEDS: LITHIUM CARBONATE 150 MG CAP PO SCH (20:39)
[2020-06-20] MEDS ORDERED: QUEtiapine 100 MG TAB PO SCH (21:00)
--- NOTE | 2020-06-20 21:11 | P.CONS ---
History of Present Illness - Reason for Consult Consult date: 06/20/20 medical eval - Chief Complaint breakdown - History of Present Illness Shirley Nieves is a 59 yo F with PMH of bipolar disorder, who was brought in to the ED by police for disorganized behavior, pt was apparently trying to get into parked cars. She states she had a breakdown last night, that she was preoccupied with owing her roommate money and recently had issues with a boyfriend leading her to wander around. She admits to recent cocaine and MJ use. She denies any physical complains including chest pain, shortness of breath, abdominal pain, nausea. A1c is reviewed at 6.5, new diagnosis of T2DM. Review of Systems All systems: negative Constitutional: Denies chills, Denies fever Eyes: denies blurred vision, denies pain Ears, nose, mouth and throat: Denies headache, Denies sore throat Cardiovascular: Denies chest pain, Denies shortness of breath Respiratory: Denies cough Gastrointestinal: Denies abdominal pain, Denies diarrhea, Denies nausea, Denies vomiting Genitourinary: Denies dysuria, Denies hematuria Musculoskeletal: Denies myalgias Integumentary: Denies pruritus, Denies rash Neurological: Denies numbness, Denies weakness Psychiatric: Reports anxiety, Reports change in sleep habits, Reports confusion, Reports disorientation, Reports insomnia (s), Denies depression Endocrine: Denies fatigue, Denies weight change Past Medical History Past Medical History: Hyperlipidemia, Hypertension Additional Past Medical History / Comment(s): occ migraines, hemorrhoids, degenerative disks L4 and L5 History of Any Multi-Drug Resistant Organisms: None Reported Past Surgical History: Appendectomy, Section, Orthopedic Surgery Additional Past Surgical History / Comment(s): LEFT ARM (POST TRAUMATIC INJURY) reattached, RIGHT FOOT X3, LEFT KNEE ARTHROSCOPY, left oophorectomy, hemorroidectomy Past Anesthesia/Blood Transfusion Reactions: No Reported Reaction Past Psychological History: Anxiety, Bipolar, Depression, Panic Disorder Smoking Status: Current every day smoker Past Alcohol Use History: None Reported Past Drug Use History: None Reported - Past Family History Mother Family Medical History: No Reported History Medications and Allergies Home Medications Medication Instructions Recorded Confirmed Type QUEtiapine [SEROquel] 100 mg PO DAILY 11/08/19 06/19/20 History traZODone HCL 100 mg PO HS 11/08/19 06/19/20 History ARIPiprazole [Abilify] 5 mg PO DAILY 06/19/20 06/19/20 History Benztropine Mesylate [Cogentin] 1 mg PO HS 06/19/20 06/19/20 History Naproxen Sodium [Aleve] 220 mg PO DAILY PRN 06/19/20 06/19/20 History QUEtiapine [SEROquel] 50 mg PO HS 06/19/20 06/19/20 History Allergies Allergy/AdvReac Type Severity Reaction Status Date / Time Penicillins Allergy Unknown Rash/Hives/ Verified 06/19/20 14:10 Itching Physical Exam Vitals: Vital Signs Temp Pulse Pulse Resp BP BP Pulse Ox 06/20/20 14:12 84 20 116/70 06/20/20 04:45 97.7 F 81 16 93/54 98 06/19/20 22:53 97.5 F L 66 16 123/69 95 06/19/20 22:39 98.3 F 700 H 16 146/68 97 General: well nourished, well developed, NAD. Vitals reviewed Eyes: PERRL, EOMI, conjunctiva normal HENT: normocephalic, mucus membranes moist Neck: supple, no JVD Lungs: normal respiratory effort, no wheezes or rales CV: Regular rate and rhythm, no murmur. Peripheral pulses 2+ Abdomen: soft, nondistended, no organomegaly Lymph: no cervical or axillary LAD Skin: warm and dry. Neuro: A&Ox3, rapid speech, tangential though process Results CBC & Chem 7: 06/20/20 07:55 06/20/20 07:55 Labs: Abnormal Lab Results - Last 24 Hours (Table) 06/20/20 06/20/20 06/20/20 Range/Units 07:55 07:55 07:55 Hct 47.2 H (34.0-46.0) % Chloride 108 H (98-107) mmol/L Hemoglobin A1c 6.6 H (4.0-6.0) % Alkaline Phosphatase 129 H (38-126) U/L Triglycerides 170 H (<150) mg/dL Cholesterol 213 H (<200) mg/dL LDL Cholesterol, Calc 145 H (0-99) mg/dL HDL Cholesterol 34 L (40-60) mg/dL Assessment and Plan (1) Bipolar disorder with severe ariana Current Visit: Yes Status: Acute Code(s): F31.13 - BIPOLAR DISORD, CRNT EPSD MANIC W/O PSYCH FEATURES, SEVERE SNOMED Code(s): 720738933 (2) Bipolar disorder with severe ariana Current Visit: Yes Status: Acute Code(s): F31.13 - BIPOLAR DISORD, CRNT EPSD MANIC W/O PSYCH FEATURES, SEVERE SNOMED Code(s): 397069564 Plan: 1. Bipolar raiana. Management per psychiatry 2. T2DM. New diagnosis this admission. Will defer starting metformin today until ariana stabilized
[2020-06-21] MEDS: LORazepam 1 MG TAB PO PRN ×3 (00:01→20:05)
[2020-06-21] MEDS: ACETAMINOPHEN TAB 325 MG TAB PO PRN (07:49)
[2020-06-21] MEDS: LITHIUM CARBONATE 150 MG CAP PO SCH (07:49)
--- NOTE | 2020-06-21 08:46 | P.PN ---
Progress Note - Text Progress Note Date: 06/21/20 Interval history: Patient was seen wandering the hallways and was directable and agreeable to speak with chief underwriter. Patient appears to be quite disorganized and expressing multiple stressors which she assumes that this provider should be already made aware of. She states that she does not come up with $1600 that the man that she is staying with will be evicted. She is currently demanding Ambien. She is intrusive with staff and peers and irritable and demanding on the unit. At this time patient denies any suicidal or homicidal ideations intent or plan. Denies any Auditory or visual hallucinations. Patient denies any side effects from the medications and has been compliant with meds. Mental status exam: General Appearance: Patient appears to be older than stated age is alert, directable, and cooperative. Behavior: Psychomotor activity is elevated. Patient is intrusive. Speech: Patient's speech is fluent. Speech is pressured. Mood/Affect: Mood is irritable and angry, affect is congruent and expansive. Suicidality/Homicidality: Patient denies having any suicidal or homicidal ideation intent or plan. Perceptions: Patient denies any auditory or visual hallucinations. Though content/process: There is no evidence of any delusional thought content and thought process is linear and goal-directed. Memory and concentration: AOX3, grossly intact for the purposes of this session Judgment and insight: Very poor Assessment/Plan: Continue with current diagnosis. Patient continues to meet criteria for inpatient psychiatric admission for symptom stabilization and safety. We will increase the patient's Seroquel to 350 mg by mouth at bedtime. We will increase her lithium to 300 mg by mouth twice a day. Monitor for medication compliance and for any psychotropic medication side effects. Will continue to monitor ongoing response to treatment. Encouraged participation in milieu.
[2020-06-21] MEDS ORDERED: LITHIUM CARBONATE 150 MG CAP PO ONE (09:15)
[2020-06-21] MEDS: NAPROXEN 250 MG TAB PO PRN (10:13)
[2020-06-21] MEDS ORDERED: OLANZapine 10 MG VIAL IM PRN (10:47)
[2020-06-21] MEDS ORDERED: hydrOXYzine HCL 50 MG/ML 1 ML VIAL IM PRN (10:48)
[2020-06-21] MEDS ORDERED: HALOPERIDOL LACTATE 5 MG/ML 1 ML VIAL IM STA (11:02)
[2020-06-21] MEDS ORDERED: diphenhydrAMINE 50 MG/ML 1 ML VIAL IM STA (11:03)
[2020-06-21] MEDS: LITHIUM CARBONATE 300 MG CAP PO SCH (20:05)
[2020-06-21] MEDS ORDERED: QUEtiapine 100 MG TAB PO SCH (21:00)
[2020-06-22] MEDS ORDERED: HALOPERIDOL LACTATE 5 MG/ML 1 ML VIAL IM PRN (00:46)
[2020-06-22] MEDS: diphenhydrAMINE 50 MG/ML 1 ML VIAL IM PRN (00:55)
[2020-06-22] MEDS: LITHIUM CARBONATE 300 MG CAP PO SCH (09:03)
--- NOTE | 2020-06-22 11:09 | P.PN ---
Progress Note - Text Progress Note Date: 06/22/20 Interval history: Patient was seen wandering the hallways and was directable and agreeable to speak with writer editor. Patient expresses a strong desire for discharge as she states that she is leaving for [place] on June 26. She was noted to be quite disorganized, impulsive, and sexually inappropriate shortly after receiving her Seroquel at bedtime. She continues to demand Ambien. At this time patient denies any suicidal or homicidal ideations intent or plan. Denies any Auditory or visual hallucinations. Patient denies any side effects from the medications and has been compliant with meds. Mental status exam: General Appearance: Patient appears to be stated age is alert, directable, and intermittently cooperative. Behavior: Motor activity is elevated. Patient is intrusive and demanding. Speech: Patient's speech is fluent. Speech is pressured. Mood/Affect: Mood is irritable and angry comment affect is congruent and expansive. Suicidality/Homicidality: Patient denies having any suicidal or homicidal ideation intent or plan. Perceptions: Patient denies any auditory or visual hallucinations. Though content/process: There is no evidence of any delusional thought content and thought process is linear and goal-directed. Patient is very med seeking. Memory and concentration: AOX3, grossly intact for the purposes of this session Judgment and insight: Very poor Assessment/Plan: Continue with current diagnosis. Patient continues to meet criteria for inpatient psychiatric admission for symptom stabilization and safety. We will discontinue Seroquel and start the patient on Risperdal 1.5 mg twice a day for mood stabilization/psychosis. We will increase lithium to 450 mg twice a day. [place] level will be drawn tomorrow. Monitor for medication compliance and for any psychotropic medication side effects. Will continue to monitor ongoing response to treatment. Encouraged participation in milieu.
[2020-06-22] MEDS: LORazepam 1 MG TAB PO PRN ×2 (13:25→20:20)
[2020-06-22] MEDS ORDERED: diphenhydrAMINE 50 MG CAP PO PRN (15:04)
[2020-06-22] MEDS: MAGNESIUM HYDROXIDE 2,400 MG/10 ML CUP PO PRN (15:29)
[2020-06-22] MEDS ORDERED: risperiDONE 0.5 MG TAB PO SCH (21:00)
[2020-06-22] MEDS ORDERED: LITHIUM CARBONATE 150 MG CAP PO SCH (21:00)
[2020-06-22] MEDS: NAPROXEN 250 MG TAB PO PRN (23:23)
[2020-06-23] MEDS: MAGNESIUM HYDROXIDE 2,400 MG/10 ML CUP PO PRN (01:47)
[2020-06-23] MEDS: LORazepam 1 MG TAB PO PRN ×3 (02:44→20:03)
[2020-06-23] MEDS: diphenhydrAMINE 50 MG/ML 1 ML VIAL IM PRN (03:38)
[2020-06-23 06:30] VITALS: RESP 16; TEMP 98.5
--- NOTE | 2020-06-23 09:01 | P.PN ---
Progress Note - Text Progress Note Date: 06/23/20 Interval History: Patient was seen wandering the hallways and was directable and agreeable to speak with teletypewriter installer in the office. Patient was praying that she is feeling "better today." She is not endorsing any significant symptoms of ariana aside from poor sleep. She is denying any racing thoughts, impulsivity, mood swings, or increased goal-directed behavior. She is expressing a strong desire for discharge as she plans to move down to [place] with her fianc this Tuesday. Patient reports that she plans to defer. She states that she has appointment set up down in [place] and will inform the treatment team. At this time patient denies any suicidal or homical ideations, intent or plan. Patient denies any auditory, visual hallucinations and denies any paranoia or delusions. Patient did report mild edema in her bilateral upper extremities as well as mild erythem a. She states that this has since improved after taking some Benadryl. [place] level was found to be 0.8. Mental Status Exam: General Appearance: Patient appears to be stated age is alert, directable, and cooperative. Behavior: Patient is calmly seated without any agitated behavior. Speech: Patient's speech is fluent and nonpressured. Mood/Affect: Mood is improving mildly, affect is congruent and constricted. Suicidality/Homicidality: Patient denies having any suicidal or homicidal ideation intent or plan. Perceptions: Patient denies any visual hallucinations and denies any auditory hallucinations Though content/process: There is no evidence of any delusional thought content and thought process is linear and goal-directed. Memory and concentration: AOX3, grossly intact for the purposes of this session Judgment and insight: Improving mildly Assessment Bipolar 1 disorder, manic episode Anxiety disorder, unspecified Plan: -Patient continues to meet criteria for inpatient psychiatric admission for symptom stabilization and safety. Patient is scheduled to meet with the bankruptcy attorney today and plans to defer. -Medications: Change Risperdal to 1 mg by mouth daily and 2 mg at bedtime to address issues with mood stabilization/insomnia Decrease lithium to 300 mg by mouth twice a day for mood stabilization -When necessary Haldol/Benadryl and Ativan for agitation/aggression. -NRT - nicotine patch -SW on board for discharge planning. Encouraged the patient to participate in milieu.
[2020-06-23] MEDS: polyethylene glycoL 3350 17 GM POWD.PACK PO SCH ×2 (09:02→20:02)
[2020-06-23] MEDS: LITHIUM CARBONATE 300 MG CAP PO SCH ×2 (09:04→20:02)
[2020-06-23] MEDS: risperiDONE 1 MG TAB PO SCH (09:04)
[2020-06-23] MEDS ORDERED: risperiDONE 2 MG TAB PO SCH (21:00)
[2020-06-24 08:19] VITALS: BP 129/86; PULSE 133
[2020-06-24] MEDS: polyethylene glycoL 3350 17 GM POWD.PACK PO SCH (08:25)
[2020-06-24] MEDS: LITHIUM CARBONATE 300 MG CAP PO SCH (08:25)
[2020-06-24] MEDS: risperiDONE 1 MG TAB PO SCH (08:25)
[2020-06-24] MEDS: LORazepam 1 MG TAB PO PRN (08:26)
--- NOTE | 2020-06-24 09:43 | P.DS ---
Providers Date of admission: 06/19/20 22:25 Expected date of discharge: 06/24/20 Attending physician: Dimitri Singh MD Consults: 06/19/20 22:31 Consult Physician Routine Consulting Provider: Valentín Miller Consult Reason/Comments: Medical Management Do you want consulting provider notified?: Yes, Notify in am Primary care physician: Kelin Stevenson - Discharge Diagnosis(es) (1) Bipolar disorder with severe ariana Current Visit: Yes Status: Acute Priority: High (2) Anxiety Current Visit: Yes Status: Chronic Priority: Medium (3) Cocaine abuse Current Visit: Yes Status: Chronic Priority: Medium Hospital Course: Admission HPI: Patient is a 59-year-old female with a significant history of bipolar disorder who was admitted for mental health evaluation. Patient presented to the hospital on 06/19/2020 accompanied by police after displaying odd and impulsive behaviors. As per petition, with multiple witnesses observed the patient trying to get in random cars including ones that were occupied. Patient was noted to be very disoriented. She is also been noted in the certificate that she has been trying to walk and to others' houses. Patient is very disorganized at this time and history is limited. Patient appears fixated on her roommate stating that she owes her roommate $650. She does endorse symptoms of elevated energy, impulsivity, and increased goal- directed behavior. She states last night was the first that she slept over the last few weeks. She reports sleeping only 3 hours last night. She states that prior to this admission, she was feeling relatively depressed and her friend gave her 3 lines of Cocaine to do. She has had multiple psychiatric admissions in the past with the last being on 08/08/2019 for suicidal ideation. She has been monitored with the medications and reports that she has tried multiple medications in the past but that no one is prescribing what she wants. She expresses a strong disdain for multiple medications due to concerns of weight gain. Patient reports a history of depression as well as manic episodes. She is not endorsing any significant symptoms of depression today. She is denying any suicidal or homicidal ideation, intention, and/or plan. She does endorse a history of panic attacks. In regards to substance use, patient endorses using cocaine. She is not reporting any other drug use. She denies any alcohol. Hospital course: Upon admission to the unit patient was initially manic, labile and agitated. Patient was however directable and agreeable to commence treatment. Patient was initially intrusive with staff and peers but improved throughout her hospital stay. Patient was compliant with the medications and denied any side effects throughout hospital course. Patient was started on seroquel and lithium. Patient spoke of her stressors and engaged in therapy both group and individual. Patient was also seen by medical team for history and physical exam. Rulo was gradually titrated to 450 mg bid but patient began to experience some edema around her upper extremities and mild tremor. Rulo level was 0.8 and her lithium was decreased down to 300 mg bid which she tolerated. Collateral information from her roomate Reyes Doe revealed that seroquel would cause her restless leg syndrome and patient was noted by staff to be more disorganized after taking seroquel at bedtime. Patient was transitioned to Risperdal instead. She tolerated the medication changes well. Throughout the course of the hospitalization patient gradually improved with regards to mood stabilization and sleep and became future oriented with improved insight and judgment. On the day of discharge patient denied any suicidal or homicidal ideations intent or plan denied any auditory or visual hallucinations. Patient endorsed wanting to live for her health and her plans to move down to [place] and be with her fiancee. The patient denied any access to guns or weapons. Patient denied any paranoia and did not endorse any delusions. She reported excellent sleep. Patient does have a significant history of substance abuse however was counseled on abstaining from all substances including alcohol and marijuana. Patient was offered however declined inpatient substance-abuse rehab. Patient was also counseled on the medications and need for regular compliance and was encouraged to follow-up with their outpatient appointment for mental health and also for primary care. This provider discussed at length the discontinuation of cocaine use. Prior to discharge a family meeting will be arranged by director social welfare to answer any questions and ensure safety upon discharge. Mental status exam: General Appearance: Patient appears to be stated age is alert, pleasant, and cooperative. Patient is in no acute distress and has fair hygiene and grooming Behavior: Patient is calmly seated without any agitated behavior. Speech: Patient's speech is fluent and nonpressured. Mood/Affect: Patient reports their mood is "much better", affect is congruent and euthymic. Suicidality/Homicidality: Patient denies having any suicidal or homicidal ideation intent or plan. Perceptions: Patient denies any auditory or visual hallucinations. Though content/process: There is no evidence of any delusional thought content and thought process is linear and goal-directed more future oriented Memory and concentration: AOX3, grossly intact for the purposes of this session. Can spell "WORLD" backwards correctly. Judgment and insight: Improved with guarded prognosis Impression: Bipolar Disorder, Type I Anxiety Disorder, unspecified Cocaine Use Disorder Plan: -Continue with discharge today as patient has improved and stabilized psychiatrically and is not currently an imminent threat to herself and/or others. Patient will remain at chronically elevated risk for harm to self and/or others due to his impulsivity and polysubstance abuse. -Continue medications: Rulo 300 mg po BID for mood stabilization Risperdal 1 mg po qAM and 2 mg po qHS for mood stabilization -Patient was counseled on the need for medication compliance and appropriate follow-up at mental health and also primary care for medical issues. Patient verbalized understanding and agreed. -Social work to arrange for and conduct family meeting to ensure safety upon discharge and answer any questions/concerns. Social work also to help arrange for patients follow up appointments with her new providers down in [place] for psychiatric care along with follow up with primary care provider. -Patient counseled on abstaining from recreational drugs and marijuana and alcohol. Was informed/educated on the adverse effects on their physical and mental health. Patient verbally agreed and understood. Patient was offered substance abuse treatment however declined at this time. -Patient was instructed to return to the hospital or seek immediate medical care if their psychiatric or medical symptoms do worsen or reoccur. Vital Signs Temp 98.5 F 06/23/20 06:29 Pulse 133 H 06/24/20 08:00 Resp 16 06/24/20 08:00 BP 129/86 06/24/20 08:00 Pulse Ox 96 06/24/20 08:00 Laboratory Results WBC 8.4 k/uL (3.8-10.6) 06/20/20 07:55 RBC 5.08 m/uL (3.80-5.40) 06/20/20 07:55 Hgb 15.0 gm/dL (11.4-16.0) 06/20/20 07:55 Hct 47.2 % (34.0-46.0) H 06/20/20 07:55 MCV 92.9 fL (80.0-100.0) 06/20/20 07:55 MCH 29.5 pg (25.0-35.0) 06/20/20 07:55 MCHC 31.7 g/dL (31.0-37.0) 06/20/20 07:55 RDW 12.9 % (11.5-15.5) 06/20/20 07:55 Plt Count 294 k/uL (150-450) 06/20/20 07:55 Neutrophils % 55 % 06/20/20 07:55 Lymphocytes % 37 % 06/20/20 07:55 Monocytes % 4 % 06/20/20 07:55 Eosinophils % 2 % 06/20/20 07:55 Basophils % 1 % 06/20/20 07:55 Neutrophils # 4.6 k/uL (1.3-7.7) 06/20/20 07:55 Lymphocytes # 3.1 k/uL (1.0-4.8) 06/20/20 07:55 Monocytes # 0.3 k/uL (0-1.0) 06/20/20 07:55 Eosinophils # 0.2 k/uL (0-0.7) 06/20/20 07:55 Basophils # 0.1 k/uL (0-0.2) 06/20/20 07:55 Sodium 140 mmol/L (137-145) 06/20/20 07:55 Potassium 4.6 mmol/L (3.5-5.1) 06/20/20 07:55 Chloride 108 mmol/L (98-107) H 06/20/20 07:55 Carbon Dioxide 24 mmol/L (22-30) 06/20/20 07:55 Anion Gap 8 mmol/L 06/20/20 07:55 BUN 16 mg/dL (7-17) 06/20/20 07:55 Creatinine 0.68 mg/dL (0.52-1.04) 06/20/20 07:55 Est GFR (CKD-EPI)AfAm >90 (>60 ml/min/1.73 sqM) 06/20/20 07:55 Est GFR (CKD-EPI)NonAf >90 (>60 ml/min/1.73 sqM) 06/20/20 07:55 Glucose 95 mg/dL (74-99) 06/20/20 07:[address] Glu mg/dL 143 06/20/20 07:55 Hemoglobin A1c 6.6 % (4.0-6.0) H 06/20/20 07:55 Calcium 9.8 mg/dL (8.4-10.2) 06/20/20 07:55 Total Bilirubin 0.7 mg/dL (0.2-1.3) 06/20/20 07:55 AST 27 U/L (14-36) 06/20/20 07:55 ALT 11 U/L (4-34) 06/20/20 07:55 Alkaline Phosphatase 129 U/L (38-126) H 06/20/20 07:55 Total Protein 7.6 g/dL (6.3-8.2) 06/20/20 07:55 Albumin 4.3 g/dL (3.5-5.0) 06/20/20 07:55 Triglycerides 170 mg/dL (<150) H 06/20/20 07:55 Cholesterol 213 mg/dL (<200) H 06/20/20 07:55 LDL Cholesterol, Calc 145 mg/dL (0-99) H 06/20/20 07:55 HDL Cholesterol 34 mg/dL (40-60) L 06/20/20 07:55 TSH 3.980 mIU/L (0.465-4.680) 06/20/20 07:55 Urine Color Light Yellow 06/19/20 17:33 Urine Appearance Clear (Clear) 06/19/20 17:33 Urine pH 7.0 (5.0-8.0) 06/19/20 17:33 Ur Specific [place] 1.006 (1.001-1.035) 06/19/20 17:33 Urine Protein Negative (Negative) 06/19/20 17:33 Urine Glucose (UA) Negative (Negative) 06/19/20 17:33 Urine Ketones Negative (Negative) 06/19/20 17:33 Urine Blood Negative (Negative) 06/19/20 17:33 Urine Nitrite Negative (Negative) 06/19/20 17:33 Urine Bilirubin Negative (Negative) 06/19/20 17:33 Urine Urobilinogen <2.0 mg/dL (<2.0) 06/19/20 17:33 Ur Leukocyte Esterase Negative (Negative) 10/08/20 17:33 Urine Opiates Screen Not Detected (NotDetected) 06/19/20 17:33 Ur Oxycodone Screen Not Detected (NotDetected) 06/19/20 17:33 Urine Methadone Screen Not Detected (NotDetected) 06/19/20 17:33 Ur Propoxyphene Screen Not Detected (NotDetected) 06/19/20 17:33 Ur Barbiturates Screen Not Detected (NotDetected) 06/19/20 17:33 U Tricyclic Antidepress Detected (NotDetected) H 06/19/20 17:33 Ur Phencyclidine Scrn Not Detected (NotDetected) 06/19/20 17:33 Ur Amphetamines Screen Not Detected (NotDetected) 06/19/20 17:33 U Methamphetamines Scrn Not Detected (NotDetected) 06/19/20 17:33 U Benzodiazepines Scrn Not Detected (NotDetected) 06/19/20 17:33 Rulo 0.8 mmol/L 06/23/20 07:13 Urine Cocaine Screen Detected (NotDetected) H 06/19/20 17:33 U Marijuana (THC) Screen Detected (NotDetected) H 06/19/20 17:33 Allergies Allergy/AdvReac Type Severity Reaction Status Date / Time Penicillins Allergy Unknown Rash/Hives/ Verified 06/19/20 14:10 Itching Patient Condition at Discharge: Stable Plan - Discharge Summary Discharge Rx Participant: Yes New Discharge Prescriptions: New [place] Carbonate 300 mg PO BID 30 Days cap risperiDONE [RisperDAL] 1 mg PO DAILY 30 Days tab risperiDONE [RisperDAL] 2 mg PO HS 30 Days tab Continue Naproxen Sodium [Aleve] 220 mg PO DAILY PRN 30 Days tab PRN Reason: Headache Discontinued QUEtiapine [SEROquel] 100 mg PO DAILY traZODone HCL 100 mg PO HS QUEtiapine [SEROquel] 50 mg PO HS ARIPiprazole [Abilify] 5 mg PO DAILY Benztropine Mesylate [Cogentin] 1 mg PO HS Discharge Medication List R[place] Carbonate 300 mg PO BID 30 Days cap 06/24/20 [Rx] Naproxen Sodium [Aleve] 220 mg PO DAILY PRN 30 Days tab 06/24/20 [Rx] risperiDONE [RisperDAL] 1 mg PO DAILY 30 Days tab 06/24/20 [Rx] risperiDONE [RisperDAL] 2 mg PO HS 30 Days tab 06/24/20 [Rx] Follow up Appointment(s)/Referral(s): Kelin Stevenson MD [Primary Care Provider] - 1-2 days Activity/Diet/Wound Care/Special Instructions: Activity and diet as tolerated. Avoid the use of street drugs and alcohol. Take all medications as prescribed. When you are in need of refills on your medications please contact your medical provider and/or outpatient psychiatrist to have this done. Please go to scheduled outpatient appointment for aftercare treatment. If symptoms return or become worse, call the crisis line at and/or go to the nearest emergency room for evaluation. Discharge Disposition: HOME SELF-CARE
== END 2020-06-24 13:34 | disposition home or self-care (01) | DRG 885 ==
LOC: EC 13:12 → 3MHU 22:25
PROVIDERS: ADMIT Psychiatry & Neurology Psychiatry; ATTEND Psychiatry & Neurology Psychiatry
DX: F31.9 Bipolar disorder, unspecified (principal); E78.5 Hyperlipidemia, unspecified; F17.200 Nicotine dependence, unspecified, uncomplicated; F41.0 Panic disorder [episodic paroxysmal anxiety]; G25.81 Restless legs syndrome; I10 Essential (primary) hypertension; G43.909 Migraine, unspecified, not intractable, without status migrainosus; E11.9 Type 2 diabetes mellitus without complications; F14.10 Cocaine abuse, uncomplicated; Z79.899 Other long term (current) drug therapy; Z90.721 Acquired absence of ovaries, unilateral; Z88.0 Allergy status to penicillin; Z90.49 Acquired absence of other specified parts of digestive tract; Z98.891 History of uterine scar from previous surgery; Z98.890 Other specified postprocedural states
CPT/HCPCS: 80053; 80061; 80178; 80306; 81003; 82075; 83036; 84443; 85025; 99285

== ENCOUNTER 2020-10-26 19:23 | Emergency (ER) | payer MEDICARE, OTHER ==
[2020-10-26 19:33] VITALS: RESP 18; TEMP 98.7
[2020-10-26] MEDS ORDERED: LORazepam 2 MG/ML INJ IM STA (20:17)
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
[2020-10-26 21:12] VITALS: BP 138/75; PULSE 83
== END 2020-10-26 21:24 | disposition home or self-care (01) ==
LOC: EC 19:23
DX: F41.9 Anxiety disorder, unspecified (principal); Z88.0 Allergy status to penicillin; Z87.891 Personal history of nicotine dependence; Z90.49 Acquired absence of other specified parts of digestive tract; Z90.721 Acquired absence of ovaries, unilateral
CPT/HCPCS: 93005; 99283; 96372; J2060

== ENCOUNTER 2020-11-20 02:05 | Emergency (ER) | payer MEDICARE, OTHER ==
[2020-11-20] MEDS ORDERED: LORazepam 2 MG/ML INJ IM STA (02:12)
[2020-11-20 02:15] VITALS: TEMP 99.6
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
--- NOTE | 2020-11-20 03:07 | XR ---
EXAM: XR Chest, 2 Views CLINICAL HISTORY: ITS.REASON XR Reason: cough TECHNIQUE: Frontal and lateral views of the chest. COMPARISON: No relevant prior studies available. FINDINGS: Lungs: Unremarkable. No consolidation. Pleural space: Unremarkable. No pneumothorax. Heart: Unremarkable. No cardiomegaly. Mediastinum: Unremarkable. Bones/joints: Unremarkable. Vasculature: Mildly calcified but nondilated thoracic aorta. IMPRESSION: No acute findings in the chest.
[2020-11-20 03:15] VITALS: BP 160/107; PULSE 83; RESP 16
== END 2020-11-20 03:15 | disposition home or self-care (01) ==
LOC: EC 02:05
DX: U07.1 COVID-19 (principal); F41.0 Panic disorder [episodic paroxysmal anxiety]; F41.9 Anxiety disorder, unspecified; I10 Essential (primary) hypertension; E78.5 Hyperlipidemia, unspecified; M51.36 Other intervertebral disc degeneration, lumbar region; G43.909 Migraine, unspecified, not intractable, without status migrainosus; F31.9 Bipolar disorder, unspecified; Z79.1 Long term (current) use of non-steroidal anti-inflammatories (NSAID); Z88.0 Allergy status to penicillin; Z90.721 Acquired absence of ovaries, unilateral; Z98.891 History of uterine scar from previous surgery; Z90.49 Acquired absence of other specified parts of digestive tract; Z87.891 Personal history of nicotine dependence
CPT/HCPCS: 87635; 71046; J2060; 96372; 99284

== ENCOUNTER 2020-11-20 13:38 | Emergency (ER) | payer MEDICARE, OTHER ==
[2020-11-20 13:53] VITALS: PULSE 98
[2020-11-20] MEDS ORDERED: LORazepam 2 MG/ML INJ IM STA (14:13)
[2020-11-20] MEDS ORDERED: ACETAMINOPHEN TAB 325 MG TAB PO STA (14:13)
--- NOTE | 2020-11-20 14:59 | ED ---
Anxiety HPI - General Chief Complaint: Anxiety Stated Complaint: Anxiety Source: patient, EMS Mode of arrival: EMS - History of Present Illness Initial Comments: 60-year-old female with history of anxiety presents to emergency Department with chief complaint of a panic attack. Patient reports she was in emergency department yesterday for the same chief complaint with no acute findings. Patient states she was discharged but she continues to have the same symptoms. Patient reports continuously shaking. Stay she is continuing to have a panic attacks because she has not slept in 4 days due to her insomnia. Patient reports she is take Ambien but her primary care was not prescribed to her. Patient also reports history of taking Xanax but now her primary care will not prescribe it to her as well. Patient reports the insomnia is exacerbating her anxiety. She is to take cervical in order to sleep, however it's causing her to gain weight and restless leg syndrome so she decided to stop taking the medication. She denies homicidal, suicidal thoughts or ideations. - Related Data Home Medications: Previous Rx's Medication Instructions Recorded [place] Carbonate 300 mg PO BID 30 Days cap 06/24/20 Naproxen Sodium [Aleve] 220 mg PO DAILY PRN 30 Days tab 06/24/20 risperiDONE [RisperDAL] 1 mg PO DAILY 30 Days tab 06/24/20 risperiDONE [RisperDAL] 2 mg PO HS 30 Days tab 06/24/20 LORazepam [Ativan] 1 mg PO HS 3 Days #3 tab 11/20/20 Allergies/Adverse Reactions: Allergies Allergy/AdvReac Type Severity Reaction Status Date / Time Penicillins Allergy Unknown Rash/Hives/ Verified 11/20/20 02:15 Itching Review of Systems ROS Statement: Those systems with pertinent positive or pertinent negative responses have been documented in the HPI. ROS Other: All systems not noted in ROS Statement are negative. Past Medical History Past Medical History: Hyperlipidemia, Hypertension Additional Past Medical History / Comment(s): occ migraines, hemorrhoids, degenerative disks L4 and L5 History of Any Multi-Drug Resistant Organisms: None Reported Past Surgical History: Appendectomy, Section, Orthopedic Surgery Additional Past Surgical History / Comment(s): LEFT ARM (POST TRAUMATIC INJURY) reattached, RIGHT FOOT X3, LEFT KNEE ARTHROSCOPY, left oophorectomy, hemorroidectomy Past Anesthesia/Blood Transfusion Reactions: No Reported Reaction Past Psychological History: Anxiety, Bipolar, Depression, Panic Disorder Smoking Status: Former smoker Past Alcohol Use History: None Reported Past Drug Use History: None Reported - Past Family History Mother Family Medical History: No Reported History General Exam Limitations: no limitations General appearance: alert, in no apparent distress, anxious Head exam: Present: atraumatic, normocephalic, normal inspection Eye exam: Present: normal appearance, PERRL, EOMI Pupils: Present: normal accommodation ENT exam: Present: normal exam, normal oropharynx, mucous membranes moist Neck exam: Present: normal inspection, full ROM. Absent: tenderness Respiratory exam: Present: normal lung sounds bilaterally. Absent: respiratory distress Cardiovascular Exam: Present: regular rate, normal rhythm, normal heart sounds GI/Abdominal exam: Present: soft. Absent: distended, tenderness, guarding Extremities exam: Present: normal inspection, full ROM. Absent: tenderness Back exam: Present: normal inspection, full ROM. Absent: tenderness Neurological exam: Present: alert, oriented X3, normal gait Psychiatric exam: Present: normal affect, normal mood, anxious Skin exam: Present: warm, dry, intact, normal color Course Vital Signs 11/20/20 11/20/20 11/20/20 13:50 14:22 16:36 Temperature 100.1 F H 100.6 F H Pulse Rate 98 98 Respiratory 18 18 17 Rate Blood Pressure 130/94 188/79 O2 Sat by Pulse 99 98 Oximetry Medical Decision Making - Medical Decision Making 60-year-old female with history of ANGEL presents to the emergency department with chief complaint of anxiety. On initial evaluation, patient is very anxious and appears to be having a panic attack. Patient was given Ativan which significantly improved her symptoms. She does not have any also, suicidal thoughts or ideations. I did offer psychiatric evaluation, she initially declined. She was febrile as well because she was diagnosed with Covid one day ago. Patient was also given Tylenol. She does not have any chest pain or shortness of breath. Later patient decided she would like to be discharged with an outpatient follow-up. I did give her information to local psychiatrist. I also give a prescription of less than 3 days of Ativan. I advised him to return to emergency department if symptoms worsen. Case discussed with Dr. Stephens. Disposition Clinical Impression: Acute anxiety, Panic attack Disposition: HOME SELF-CARE Condition: Stable Instructions (If sedation given, give patient instructions): Generalized Anxiety Disorder (ED) Additional Instructions: Take prescribed medication as directed. Follow-up with the psychiatrist. Prescriptions: LORazepam [Ativan] 1 mg PO HS 3 Days #3 tab Is patient prescribed a controlled substance at d/c from ED?: No Referrals: Opal Miller DO [Primary Care Provider] - 1-2 days Time of Disposition: 16:18
[2020-11-20 16:38] VITALS: BP 188/79; RESP 17; TEMP 100.6
== END 2020-11-20 16:37 | disposition home or self-care (01) ==
LOC: EC 13:38
DX: F41.0 Panic disorder [episodic paroxysmal anxiety] (principal); E78.5 Hyperlipidemia, unspecified; I10 Essential (primary) hypertension; F32.9 Major depressive disorder, single episode, unspecified; Z79.899 Other long term (current) drug therapy; Z87.891 Personal history of nicotine dependence; Z88.0 Allergy status to penicillin
CPT/HCPCS: 82075; 99283; 96372; J2060

== ENCOUNTER 2022-02-23 20:07 | Inpatient (IN) | payer MEDICARE, MEDICAID ==
[2022-02-23 20:48] LABS: Appearance,Urine Clear (Clear); Bilirubin,Urine Negative (Negative); Blood,Urine Negative (Negative); Color,Urine Colorless; Glucose,Urine (UA) Negative (Negative); Ketones,Urine Negative (Negative); Leukocyte Esterase,Urine Negative (Negative); Nitrite,Urine Negative (Negative); PH, Urine 6.5 (5.0-8.0); Protein,Urine Negative (Negative); Specific Gravity,Urine 1.001 (1.001-1.035); Urobilinogen,Urine <2.0 mg/dL (<2.0)
[2022-02-23 21:01] LABS: Amphetamine Screen,Urine Not Detected (NotDetected); Barbiturate Screen,Urine Not Detected (NotDetected); Benzodiazepines Screen,Urine Detected (NotDetected); Cocaine Screen,Urine Detected (NotDetected); Methadone Screen, Urine Not Detected (NotDetected); Opiate Screen,Urine Not Detected (NotDetected); Oxycodone Screen, Urine Not Detected (NotDetected); Phencyclidine Screen,Urine Not Detected (NotDetected); Tricyclic Antidepressant,Urine Not Detected (NotDetected); Urn Cannabinoid Scrn Not Detected (NotDetected)
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
[2022-02-24] MEDS ORDERED: HYDROcodone/APAP 7.5-325MG 1 EACH TAB PO ONE (02:16)
[2022-02-24] MEDS ORDERED: NICOTINE 14MG/24HR PATCH TRANSDERM STA (04:46)
[2022-02-24] MEDS ORDERED: ACETAMINOPHEN TAB 325 MG TAB PO PRN (04:55)
[2022-02-24] MEDS ORDERED: MAG HYDROX/AL HYDROX/SIMETH 30 ML CUP PO PRN (04:55)
[2022-02-24] MEDS ORDERED: MAGNESIUM HYDROXIDE 2,400 MG/10 ML CUP PO PRN (04:55)
[2022-02-24] MEDS ORDERED: hydrOXYzine HCL 50 MG/ML 1 ML VIAL IM PRN (04:59)
[2022-02-24] MEDS: NICOTINE 14MG/24HR PATCH TRANSDERM SCH (08:37)
[2022-02-24] MEDS ORDERED: OLANZapine 2.5 MG TAB PO PRN (14:26)
[2022-02-24] MEDS ORDERED: IBUPROFEN 600 MG TAB PO PRN (14:29)
[2022-02-24] MEDS: FLUoxetine HCL 20 MG CAP PO SCH (14:34)
[2022-02-24] MEDS: chlorproMAZINE 25 MG/ML 2 ML AMP IM PRN (14:34)
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
[2022-02-24] MEDS ORDERED: OLANZapine 5 MG TAB PO SCH (21:00)
[2022-02-24] MEDS: hydrOXYzine pamoate 25 MG CAP PO PRN (23:08)
[2022-02-25] MEDS: NICOTINE 14MG/24HR PATCH TRANSDERM SCH (08:46)
[2022-02-25] MEDS: FLUoxetine HCL 20 MG CAP PO SCH (08:46)
--- NOTE | 2022-02-25 11:13 | P.PN ---
Progress Note - Text Progress Note Date: 02/25/22 Interval History: Patient was seen lying in her bed this morning and was directable and agreeable to speak with commercial underwriter in the office. Patient claims that she is doing a bit better however continues to remain depressed. She states that she is able to sleep fairly last night with the Zyprexa however did take Vistaril and also Thorazine prns. She was more directable and cooperative today and was not yelling or rambling today either. She states that she is going to some groups. She spoke about having a "friend" and lives in [place] that she is trying to communicate with. She claims that he will be coming here to [place] and then they will go to [place] together. She was asking about discharge. She continues to have superficial insight. At this time patient denies any suicidal or homical ideations, intent or plan. Patient denies any auditory, visual hallucinations and denies any paranoia or delusions. Patient denies any side effects from the medications and has been compliant with meds. Mental Status Exam: General Appearance: Patient appears to be short in stature, less irritable, stated age is alert, more directable. Patient appears to have improving hygiene and grooming. Behavior: Patient is seated, less irritable today. More directable. Speech: Patient's speech is fluent, nonpressured. Mood/Affect: Patient reports their mood is depressed, affect is congruent and constricted. Suicidality/Homicidality: Patient denies having any homicidal ideation intent or plan. Denies any suicidal ideations intent or plan Perceptions: Patient denies any visual hallucinations and denies any auditory hallucinations Though content/process: Preoccupied with discharge. Poor insight. Endorsing delusion of a friend in [place] that is a "public figure" I will take her to [place]. Memory and concentration: AOX3, grossly intact for the purposes of this session Judgment and insight: poor, improving markedly IMPRESSIONS: Bipolar disorder, current episode depressed Benzodiazepine abuse Possible opioid abuse Cocaine use disorder Nicotine dependence Plan: -Patient continues to meet criteria for inpatient psychiatric admission for symptom stabilization and safety. Patient has not signed adult voluntary form and medication consent and was placed in patient's chart. -Medications: Increase Zyprexa to 7.5 mg daily at bedtime for mood stabilization/insomnia. Increase Prozac 40 mg daily for mood/anxiety. -When necessary Vistaril and Thorazine prn for agitation/aggression. -NRT - nicotine patch -SW on board for discharge planning. Encouraged the patient to participate in milieu. Deferral set for today with day care teacher. Likely discharge tomorrow versus early next week.
[2022-02-25] MEDS ORDERED: LOPERAMIDE 2 MG CAP PO PRN (15:59)
[2022-02-25] MEDS: hydrOXYzine pamoate 25 MG CAP PO PRN (19:06)
[2022-02-25] MEDS: chlorproMAZINE 25 MG TAB PO PRN (19:07)
[2022-02-25] MEDS ORDERED: OLANZapine 7.5 MG TAB PO SCH (21:00)
[2022-02-26] MEDS ORDERED: chlorproMAZINE 25 MG TAB ONE (00:10)
[2022-02-26] MEDS ORDERED: hydrOXYzine pamoate 25 MG CAP ONE (00:10)
[2022-02-26] MEDS: NICOTINE 14MG/24HR PATCH TRANSDERM SCH (08:51)
[2022-02-26] MEDS: FLUoxetine HCL 20 MG CAP PO SCH (08:51)
[2022-02-26] MEDS: chlorproMAZINE 25 MG TAB PO PRN ×2 (08:52→19:11)
[2022-02-26] MEDS: hydrOXYzine pamoate 25 MG CAP PO PRN ×2 (08:53→19:11)
--- NOTE | 2022-02-26 10:42 | P.PN ---
Progress Note - Text Progress Note Date: 02/26/22 Interval History: Patient was seen lying in her bed this morning and was directable and agreeable to speak with health science writer in the office. Patient claims that she continues to have racing thoughts at nighttime and feels that her mood is still unstable. She claims that she needed Thorazine and Vistaril at nighttime as she still cannot sleep. she states that she only started sleeping at 6am this mornign after taking her prns. She continues to be focused on poor sleep and racing thoughts. She states that she feels the Zyprexa has been helping was agreeable to have increased today. She claims that she is going to some groups. She appears to have more logical thought process today and was not rambling or yelling. She claims that she wants to eventually move to [place] with a friend however was not focused on speaking with her friends from [facility] today. She appears to have improvement in her insight and judgment. At this time patient denies any suicidal or homical ideations, intent or plan. Patient denies any auditory, visual hallucinations and denies any paranoia. Patient denies any side effects from the medications and has been compliant with meds. Mental Status Exam: General Appearance: Patient appears to be short in stature, less irritable, stated age is alert, more directable. Patient appears to have improving hygiene and grooming. Behavior: Patient is seated, less irritable today. More directable. Speech: Patient's speech is fluent, nonpressured. Mood/Affect: Patient reports their mood is depressed, improving mildly, affect is congruent and constricted. Suicidality/Homicidality: Patient denies having any homicidal ideation intent or plan. Denies any suicidal ideations intent or plan Perceptions: Patient denies any visual hallucinations and denies any auditory hallucinations Though content/process: Preoccupied with discharge and with poor sleep. Poor insight, improving. Memory and concentration: AOX3, grossly intact for the purposes of this session Judgment and insight: poor, improving markedly IMPRESSIONS: Bipolar disorder, current episode depressed Benzodiazepine abuse Possible opioid abuse Cocaine use disorder Nicotine dependence Plan: -Patient continues to meet criteria for inpatient psychiatric admission for symptom stabilization and safety. Patient has not signed adult voluntary form and medication consent and was placed in patient's chart. -Medications: Increase Zyprexa to 10 mg daily at bedtime for mood stabilization/insomnia. Prozac 40 mg daily for mood/anxiety. added trazodone 50 mg qhs for sleep as per patient request. -When necessary Vistaril and Thorazine prn for agitation/aggression. -NRT - nicotine patch -SW on board for discharge planning. Encouraged the patient to participate in milieu. patient deferred with her commonwealth attorney. Likely discharge tuesday
--- NOTE | 2022-02-26 14:30 | P.MDCNMH ---
History of Present Illness H&P Date: 02/26/22 Chief Complaint: Patient has no complaints Patient is a 61 year old female, history of bipolar disorder and anxiety, polysubstance abuse, who was admitted to inpatient psychiatric unit for overdose of Xanax. She has a long-standing history of bipolar depression anxiety. She has history of chronic back pain. She denies any other medical problem. Denies any lung heart or kidney issues. Denies any history of diabetes. Denies taking any medications at home. She is cooperative and reports no complaints at this time. Review of Systems All systems: negative Past Medical History Past Medical History: Hyperlipidemia, Hypertension Additional Past Medical History / Comment(s): occ migraines, hemorrhoids, degenerative disks L4 and L5 History of Any Multi-Drug Resistant Organisms: None Reported Past Surgical History: Appendectomy, Section, Orthopedic Surgery Additional Past Surgical History / Comment(s): LEFT ARM (POST TRAUMATIC INJURY) reattached, RIGHT FOOT X3, LEFT KNEE ARTHROSCOPY, left oophorectomy, hemorroidectomy Past Anesthesia/Blood Transfusion Reactions: No Reported Reaction Past Psychological History: Anxiety, Bipolar, Depression, Panic Disorder Smoking Status: Current every day smoker Past Alcohol Use History: None Reported Past Drug Use History: Cocaine, Prescription Drug Abuse - Past Family History Mother Family Medical History: No Reported History Medications and Allergies Home Medications Medication Instructions Recorded Confirmed Type No Known Home Medications 02/23/22 02/24/22 History Allergies Allergy/AdvReac Type Severity Reaction Status Date / Time Penicillins Allergy Unknown Rash/Hives/ Verified 02/24/22 05:00 Itching Physical Exam Vitals: Vital Signs Temp Pulse Resp BP 02/26/22 01:01 96.9 F L 113 H 14 106/55 Awake alert oriented 3, no acute distress Head and neck: Anicteric sclera, extraocular movements intact, no facial asymmetry, oropharyngeal mucosa is moist without any lesions, neck is supple without rigidity, no neck masses or neck vein distention Heart: Regular rhythm and rate, S1, S2; no murmurs rubs or gallops Lungs: Breath sounds present bilateral, no wheezing, rhonchi or crackles Abdomen: Bowel sounds present throughout, abdomen is soft, nontender, nondistended, no involuntary guarding, no hernias or organomegaly, no flank tenderness Extremities: No peripheral edema, no cyanosis, warm well perfused with palpable dorsalis pedis pulses bilateral and good capillary refill, without joint swelling or deformities Musculoskeletal: No joint swelling, no tenderness over the spine or paraspinal muscles Neurological: No focal motor or sensory deficits Cranial Nerve Examination - Cranial Nerves Cranial Nerve II- Optic: Intact Cranial Nerve III- Oculomotor: Intact Cranial Nerve IV- Trochlear: Intact Cranial Nerve V- Trigeminal: Intact Cranial Nerve - Abducens: Intact Cranial Nerve VII- Facial: Intact Cranial Nerve VIII- Auditory: Intact Cranial Nerve IX- Glossopharyngeal: Intact Cranial Nerve X- Vagus: Intact Cranial Nerve XI- Accessory: Intact Cranial Nerve XII- Hypoglossal: Intact Assessment and Plan Assessment: #Xanax overdose #Bipolar disorder #Depression and anxiety Continue per psychiatric recommendations. We will check basic labs A1c TSH.
[2022-02-26] MEDS ORDERED: OLANZapine 10 MG TAB PO SCH (21:00)
[2022-02-26] MEDS ORDERED: traZODone HCL 50 MG TAB PO SCH (21:00)
[2022-02-27] MEDS: hydrOXYzine pamoate 25 MG CAP PO PRN ×2 (02:04→12:56)
[2022-02-27] MEDS: chlorproMAZINE 25 MG TAB PO PRN ×2 (02:04→12:56)
[2022-02-27] MEDS: FLUoxetine HCL 20 MG CAP PO SCH (09:22)
[2022-02-27] MEDS: NICOTINE 14MG/24HR PATCH TRANSDERM SCH (09:22)
--- NOTE | 2022-02-27 14:07 | P.PN ---
Subjective Progress Note Date: 02/27/22 Principal diagnosis: Bipolar 1 depressed Polysubstance use disorder Lifelong insomnia Subjective: Patient says that she has had trouble with sleep even as a child and that what was working for her was Seroquel at night( except it gave her akathisia so she had to take Cogentin with the Seroquel) Patient was seen lying in her bed this morning and was directable and agreeable to speak with entry writer in the office. Patient claims that she continues to have racing thoughts at nighttime and feels that her mood is still unstable. She continues to be focused on poor sleep and racing thoughts. She states that she feels the Zyprexa has been helping and was agreeable to have increased from 5-10 last night but still didn't sleep that well. She claims that she is going to some groups. At this time patient denies any suicidal or homical ideations, intent or plan. Patient denies any auditory, visual hallucinations and denies any paranoia. Patient denies any side effects from the medications and has been compliant with meds. Mental Status Exam: General Appearance: Patient appears to be short in stature, less irritable, stated age is alert. Patient has reasonable hygiene and grooming. Behavior: Patient is seated and is fairly calm. Speech: Patient's speech is fluent, nonpressured and she stays on topic. Mood/Affect: Patient reports their mood is depressed, improving mildly, affect is serious but constricted. Suicidality/Homicidality: Patient denies having any homicidal ideation intent or plan. Denies any suicidal ideations intent or plan Perceptions: Patient denies any visual hallucinations and denies any auditory hallucinations Though content/process: Preoccupied with discharge (she is scheduled to be discharged Tuesday but wants to be sleeping well by that and) and with poor sleep. Poor insight, improving. Memory and concentration: AOX3, grossly intact for the purposes of this session Judgment and insight: poor, improving markedly IMPRESSIONS: Bipolar disorder, current episode depressed Benzodiazepine abuse Possible opioid abuse Cocaine use disorder Nicotine dependence Plan: Discontinue trazodone as it didn't help try clonidine which she has taken in the past at 0.3 mg and then see how her blood pressure does in the morning and if she sleeps an increase of Zyprexa further to 15 -Patient continues to meet criteria for inpatient psychiatric admission for symptom stabilization and safety. Patient has not signed adult voluntary form and medication consent and was placed in patient's chart. -Medications: Increase Zyprexa to 10 mg daily at bedtime for mood stabilization/insomnia. She says that the Prozac 40 mg daily for mood/anxiety does not help thinks it might make things a little worse. -When necessary Vistaril and Thorazine prn for agitation/aggression. -NRT - nicotine patch -SW on board for discharge planning. Encouraged the patient to participate in milieu. patient deferred with her front counter clerk. Likely discharge tuesday subjective: Objective - Vital Signs Vital signs: Vital Signs Temp 98.4 F 02/27/22 07:05 Pulse 81 02/27/22 07:05 Resp 14 02/26/22 01:01 BP 82/52 02/27/22 07:05 Pulse Ox 95 02/27/22 07:05 FiO2
[2022-02-27] MEDS: OLANZapine 10 MG TAB PO SCH (20:38)
[2022-02-27] MEDS ORDERED: cloNIDine HCL 0.1 MG TAB PO SCH (21:00)
[2022-02-28] MEDS: NICOTINE 14MG/24HR PATCH TRANSDERM SCH ×2 (07:59→08:03)
[2022-02-28 08:41] LABS: HCT 40.4 % (34.0-46.0); HGB 13.8 gm/dL (11.4-16.0); MCH 31.8 pg (25.0-35.0); MCHC 34.1 g/dL (31.0-37.0); MCV 93.2 fL (80.0-100.0); Mean Platelet Volume 7.8; Platelet Count 291 k/uL (150-450); RBC 4.33 m/uL (3.80-5.40); RDW 12.7 % (11.5-15.5); WBC 5.4 k/uL (3.8-10.6)
[2022-02-28 08:56] LABS: ALT 15 U/L (4-34); AST 22 U/L (14-36); African American GFR (CKD) >90 (>60 ml/min/1.73 sqM); Albumin 4.2 g/dL (3.5-5.0); Alkaline Phosphatase 89 U/L (38-126); Anion Gap 7 mmol/L; Blood Urea Nitrogen 25 mg/dL (7-17); Calcium 9.8 mg/dL (8.4-10.2); Carbon Dioxide 29 mmol/L (22-30); Chloride 101 mmol/L (98-107); Glucose 120 mg/dL (74-99); Non-African American GFR(CKD) >90 (>60 ml/min/1.73 sqM); Potassium 4.7 mmol/L (3.5-5.1); Sodium 137 mmol/L (137-145); Total Bilirubin 0.4 mg/dL (0.2-1.3); Total Protein 7.1 g/dL (6.3-8.2)
--- NOTE | 2022-02-28 11:59 | P.PN ---
Subjective Progress Note Date: 02/28/22 Principal diagnosis: Bipolar 1 depressed Polysubstance use disorder Lifelong insomnia Subjective: She says that she slept 4 hours last night even with a good dose of Zyprexa and her blood pressure did fall to [place] with the clonidine so we are discontinuing that. I told her that she needs to just stabilize on the Zyprexa and maybe add clonidine in later if it's indicated ) she is worried about weight gain I pointed out that a lot of people take Zyprexa and don't came weight and that she did she could shift over to Geodon or maybe add some Topamax to it. She says she has done well on Thorazine in the past but that would prior had weight even more than the Zyprexa Patient was up and about seems more alert and was agreeable to speak with marketing writer in the office. Patient claims that she continues to have racing thoughts at nighttime and feels that her mood is still unstable. She continues to be focused on poor sleep and racing thoughts. She states that she feels the Zyprexa has been helping . She claims that she is going to some groups. At this time patient denies any suicidal or homical ideations, intent or plan. Patient denies any auditory, visual hallucinations and denies any paranoia. Patient denies any side effects from the medications and has been compliant with meds. Mental Status Exam: General Appearance: Patient appears to be short in stature, less irritable, stated age is normal, she is alert. Patient has reasonable hygiene and grooming. Behavior: Patient is seated and is fairly calm. Speech: Patient's speech is fluent, slightly pressured and she stays on topic. Mood/Affect: Patient reports their mood is depressed, improving mildly, affect is less depressed. Suicidality/Homicidality: Patient denies having any homicidal ideation intent or plan. Denies any suicidal ideations intent or plan Perceptions: Patient denies any visual hallucinations and denies any auditory hallucinations Though content/process: Preoccupied with discharge (she is scheduled to be discharged Tuesday but wants to be sleeping well by that and) and with poor sleep. Poor insight, improving. Memory and concentration: AOX3, grossly intact for the purposes of this session Judgment and insight: poor, improving markedly IMPRESSIONS: Bipolar disorder, current episode depressed Benzodiazepine abuse Possible opioid abuse Cocaine use disorder Nicotine dependence Plan: Discontinue clonidine and increase of Zyprexa further to 15 -Patient continues to meet criteria for inpatient psychiatric admission for symptom stabilization and safety. Patient has not signed adult voluntary form and medication consent and was placed in patient's chart. -Medications: Increase Zyprexa to 15 mg daily at bedtime for mood stabilization/insomnia. She says that the Prozac 40 mg daily for mood/anxiety does not help thinks it might make things a little worse. -When necessary Vistaril and Thorazine prn for agitation/aggression. -NRT - nicotine patch -SW on board for discharge planning. Encouraged the patient to participate in milieu. patient deferred with her deputy commonwealth's attorney. Likely discharge tuesday subjective: Objective - Vital Signs Vital signs: Vital Signs Temp 96.5 F L 02/28/22 06:56 Pulse 69 02/28/22 08:03 Resp 14 02/28/22 06:56 BP 105/56 02/28/22 08:03 Pulse Ox 95 02/27/22 07:05 FiO2 Intake & Output 02/27/22 02/28/22 02/28/22 18:59 06:59 18:59 Weight 52.163 kg 50.8 kg - Labs CBC & Chem 7: 02/28/22 07:56 02/28/22 07:56 Labs: Abnormal Lab Results - Last 24 Hours (Table) 02/28/22 Range/Units 07:56 BUN 25 H (7-17) mg/dL Glucose 120 H (74-99) mg/dL
[2022-02-28 12:00] LABS: Glucose,Whole Blood 86 mg/dL (70-110)
[2022-02-28] MEDS: OLANZapine 10 MG TAB PO SCH (20:06)
[2022-02-28] MEDS: chlorproMAZINE 25 MG/ML 2 ML AMP IM PRN (20:47)
[2022-02-28] MEDS: hydrOXYzine pamoate 25 MG CAP PO PRN (23:38)
[2022-03-01 06:39] VITALS: BP 133/61; PULSE 64; RESP 16; TEMP 97.7
[2022-03-01] MEDS: NICOTINE 14MG/24HR PATCH TRANSDERM SCH (08:02)
[2022-03-01] MEDS ORDERED: LORazepam 1 MG TAB PO PRN (11:18)
--- NOTE | 2022-03-01 14:49 | P.DS ---
Providers Date of admission: 02/24/22 04:47 Attending physician: Zach Rosenbaum MD Consults: 02/24/22 04:55 Consult Physician Routine Consulting Provider: Charlene Physician Consult Reason/Comments: For H & P for Medical Follow Up Do you want consulting provider notified?: Yes Primary care physician: Stated None - Discharge Diagnosis(es) (1) Bipolar 1 disorder, depressed Status: Chronic Priority: Medium (2) Insomnia Status: Chronic Priority: High (3) Suicidal ideation Status: Acute Priority: Low (4) Cocaine abuse Status: Chronic Priority: Medium Hospital Course: HISTORY: She is a 61-year-old female who currently lives in a hotel room with roommate. [facility] prior to admission with a purported overdose of Xanax. She complains of increasing stress, anxiety and depression related to multiple problems including chronic plain, anxiety as well as social and living problems. She alleged that she did not intentionally overdose on Xanax but was not able to reduce "sleep" for several days prior to admission. He urine drug screen was positive for benzodiazepines and cocaine. She let she was using cocaine because she could not "deal" with her roommate. She alleged history of a bipolar illness with manic symptoms have been described Abilify for the treatment of her bipolar illness. HOSPITAL COURSE: We admitted her to the psychiatric unit voluntarily under the care of Dr. Cruz. Provided a comprehensive biopsychosocial assessment. The consultant intern telephone supervisor completed initial physical exam and medical history and did not diagnose a chronic medical illness. We treated her insomnia and mood lability with olanzapine titrating the dose up to 15 mg at bedtime. She slept little during this hospitalization and increase the dose of olanzapine did not improve her sleep. During our interview she denied that she had attempted to overdose or had suicidal ideations prior to admission. She alleged that she "needed to rest" and told the emergency room doctors that she had overdosed. She posed no management problems and had no episodes of behavioral dyscontrol. She plans to return to the [facility] room and follow-up with [facility] mental health. Her correction plans are to return to live in [place]. MENTAL STATUS ON DISCHARGE: She presented as a thin casually groomed elderly woman who was pleasant on approach. She made eye contact and appeared to attend to the interview. She had very poor dentition but no prominent physical abnormalities. She had a bright facial expression. She showed no abnormality of psychomotor activity. Her speech was spontaneous with increased rate and rhythm. She had no articulation difficulties. His affect was stable and appropriate. She denied suicidal ideation, wishes or homicidal ideation. She denied feeling hopeless, helpless or worthless. She ruminated about her financial and social problems and chronic difficulties with sleep. She did not express ideas reference, paranoid ideation or delusions. Her thinking was concrete. Associations were coherent, logical and goal directed. She denied hallucinations did not appear to responding to internal stimuli. DISPOSITION: She will return to stay at the [facility] until she was able to move out of state her find permanent housing in [place]. She has a follow-up appointment scheduled with [facility]. Her discharge medications listed below including a 14 day supply of Ativan 1 mg at bedtime when necessary for sleep. Patient Condition at Discharge: Stable Plan - Discharge Summary Discharge Rx Participant: No New Discharge Prescriptions: New LORazepam [Ativan] 1 mg PO HS PRN #14 tab PRN Reason: Insomnia Nicotine 14Mg/24Hr Patch [Habitrol] 1 patch TRANSDERM DAILY #28 patch Ibuprofen [Motrin] 600 mg PO Q8H PRN #30 tab PRN Reason: Moderate To Severe Pain OLANZapine [ZyPREXA] 10 mg PO HS #30 tab Discharge Medication List Ibuprofen [Motrin] 600 mg PO Q8H PRN #30 tab 03/01/22 [Rx] LORazepam [Ativan] 1 mg PO HS PRN #14 tab 03/01/22 [Rx] Nicotine 14Mg/24Hr Patch [Habitrol] 1 patch TRANSDERM DAILY #28 patch 03/01/22 [Rx] OLANZapine [ZyPREXA] 10 mg PO HS #30 tab 03/01/22 [Rx] Follow up Appointment(s)/Referral(s): [facility] [Outside] - 03/08/22 2:30 pm (With [place]) [facility] - As Needed Patient Instructions/Handouts: How to Stop Smoking (DC), Mood Disorders (DC), Depression (DC), Help Prevent Suicide (DC), Anxiety (GEN), Adult Overdose (ED), Suicide Prevention (DC) Activity/Diet/Wound Care/Special Instructions: Activity and diet as tolerated. Avoid the use of street drugs and alcohol. Take all medications as prescribed. When you are in need of refills on your medications please contact your medical provider and/or outpatient psychiatrist to have this done. Please go to scheduled outpatient appointment for aftercare treatment. If symptoms return or become worse, call the crisis line at and/or go to the nearest emergency room for evaluation Discharge Disposition: HOME SELF-CARE
[2022-03-01] MEDS ORDERED: OLANZapine 10 MG TAB PO SCH (21:00)
== END 2022-03-01 11:44 | disposition home or self-care (01) | DRG 885 ==
LOC: EC 20:07 → 3MHU 02-24 04:47
PROVIDERS: ADMIT Psychiatry & Neurology Psychiatry; ATTEND Psychiatry & Neurology Psychiatry
DX: F31.30 Bipolar disorder, current episode depressed, mild or moderate severity, unspecified (principal); F13.10 Sedative, hypnotic or anxiolytic abuse, uncomplicated; F14.10 Cocaine abuse, uncomplicated; E78.5 Hyperlipidemia, unspecified; Z20.822 Contact with and (suspected) exposure to COVID-19; Z28.310 Unvaccinated for COVID-19; Z28.21 Immunization not carried out because of patient refusal; K08.89 Other specified disorders of teeth and supporting structures; G89.29 Other chronic pain; F41.0 Panic disorder [episodic paroxysmal anxiety]; G47.00 Insomnia, unspecified; I10 Essential (primary) hypertension; T42.4X2A Poisoning by benzodiazepines, intentional self-harm, initial encounter; Z90.721 Acquired absence of ovaries, unilateral; M51.36 Other intervertebral disc degeneration, lumbar region; R45.1 Restlessness and agitation; G43.909 Migraine, unspecified, not intractable, without status migrainosus; Z90.49 Acquired absence of other specified parts of digestive tract; Z88.0 Allergy status to penicillin; Z98.890 Other specified postprocedural states
CPT/HCPCS: 80053; 80306; 81003; 82075; 83036; 84443; 85027; 87635; 96372; 99285

== ENCOUNTER 2022-11-29 13:14 | Emergency (ER) | payer MEDICARE, OTHER ==
[2022-11-29] MEDS ORDERED: SODIUM CHLORIDE 0.9% 500 ML 500 ML IV ONE (13:19)
[2022-11-29] MEDS ORDERED: GLUCAGON 1 MG/ML VIAL IVP STA ×2 (13:20→14:45)
[2022-11-29] MEDS ORDERED: NITROGLYCERIN SL TABS 0.4 MG TAB SUBLINGUAL STA ×2 (13:20→14:46)
[2022-11-29] MEDS ORDERED: METOCLOPRAMIDE 5 MG/ML 2 ML VIAL IVP STA (13:21)
--- NOTE | 2022-11-29 13:27 | ED ---
General Adult HPI - General Chief complaint: Abdominal Pain Stated complaint: Abd Pain,Vomiting Time Seen by Provider: 11/29/22 13:14 Source: patient, EMS, RN notes reviewed, old records reviewed Mode of arrival: EMS Limitations: no limitations - History of Present Illness Initial comments: This is a 62-year-old female who presents emergency room stating that last night she was eating some pork and ever since she's been unable to swallow. Patient states she keeps vomiting up her saliva. Patient states that this is happened in the past. Patient states she's normally it resolves on its own. Patient states she's never had her esophagus dilated. Patient denies any difficulty breathing or chest pain. Patient denies any fever chills or cough. Patient denies any abdominal pain. - Related Data Previous Rx's Medication Instructions Recorded Ibuprofen [Motrin] 600 mg PO Q8H PRN #30 tab 03/01/22 LORazepam [Ativan] 1 mg PO HS PRN #14 tab 03/01/22 Nicotine 14Mg/24Hr Patch [Habitrol] 1 patch TRANSDERM DAILY #28 patch 03/01/22 OLANZapine [ZyPREXA] 10 mg PO HS #30 tab 03/01/22 Allergies Allergy/AdvReac Type Severity Reaction Status Date / Time Penicillins Allergy Unknown Rash/Hives/ Verified 11/29/22 13:23 Itching Review of Systems ROS Statement: Those systems with pertinent positive or pertinent negative responses have been documented in the HPI. ROS Other: All systems not noted in ROS Statement are negative. Past Medical History Past Medical History: Hyperlipidemia, Hypertension Additional Past Medical History / Comment(s): occ migraines, hemorrhoids, degenerative disks L4 and L5 History of Any Multi-Drug Resistant Organisms: None Reported Past Surgical History: Appendectomy, Section, Orthopedic Surgery Additional Past Surgical History / Comment(s): LEFT ARM (POST TRAUMATIC INJURY) reattached, RIGHT FOOT X3, LEFT KNEE ARTHROSCOPY, left oophorectomy, hemorroidectomy Past Anesthesia/Blood Transfusion Reactions: No Reported Reaction Past Psychological History: Anxiety, Bipolar, Depression, Panic Disorder Smoking Status: Former smoker, Vaper Past Alcohol Use History: None Reported Past Drug Use History: None Reported, Cocaine - Past Family History Mother Family Medical History: No Reported History General Exam - General Exam Comments Initial Comments: GENERAL: Patient is well-developed and well-nourished. Patient is nontoxic and well- hydrated and is in mild distress. ENT: Neck is soft and supple. No significant lymphadenopathy is noted. Oropharynx is clear. Moist mucous membranes. Neck has full range of motion without eliciting any pain. EYES: The sclera were anicteric and conjunctiva were pink and moist. Extraocular movements were intact and pupils were equal round and reactive to light. Eyelids were unremarkable. PULMONARY: Unlabored respirations. Good breath sounds bilaterally. No audible rales rhonchi or wheezing was noted. CARDIOVASCULAR: There is a regular rate and rhythm without any murmurs gallops or rubs. ABDOMEN: Soft and nontender with normal bowel sounds. SKIN: Skin is clear with no lesions or rashes and otherwise unremarkable. NEUROLOGIC: Patient is alert and oriented x3. Cranial nerves II through XII are grossly intact. Motor and sensory are also intact. Normal speech, volume and content. Symmetrical smile. MUSCULOSKELETAL: Normal extremities with adequate strength and full range of motion. No lower extremity swelling or edema. No calf tenderness. LYMPHATICS: No significant lymphadenopathy is noted PSYCHIATRIC: Normal psychiatric evaluation. Limitations: no limitations Course Vital Signs 11/29/22 11/29/22 11/29/22 13:16 14:14 14:54 Temperature 98.4 F Pulse Rate 83 103 H 88 Respiratory 20 20 19 Rate Blood Pressure 127/88 141/95 137/97 O2 Sat by Pulse 100 97 99 Oximetry 11/29/22 17:14 Temperature 97.9 F Pulse Rate 83 Respiratory 18 Rate Blood Pressure 135/83 O2 Sat by Pulse 99 Oximetry Medical Decision Making - Medical Decision Making Was pt. sent in by a medical professional or institution (, PA, GRANULIZING MACHINE OPERATOR, urgent care, hospital, or assisted...) When possible be specific @ -No Did you speak to anyone other than the patient for history (EMS, parent, family, police, friend...)? What history was obtained from this source @ -No Did you review nursing and triage notes (agree or disagree)? Why? @ -I reviewed and agree with nursing and triage notes Were old charts reviewed (outside hosp., previous admission, EMS record, old EKG, old radiological studies, urgent care reports/EKG's, assisted records)? Report findings @ -No old charts were reviewed Differential Diagnosis (chest pain, altered mental status, abdominal pain women, abdominal pain men, vaginal bleeding, weakness, fever, dyspnea, syncope, headache, dizziness, GI bleed, back pain, seizure, CVA, palpatations, mental health, musculoskeletal)? @ -Esophageal foreign body, esophageal mass, possible stroke, this is not all inclusive list EKG interpreted by me (3pts min.). @ -As above X-rays interpreted by me (1pt min.). @ -None done CT interpreted by me (1pt min.). @ -None done U/S interpreted by me (1pt. min.). @ -None done What testing was considered but not performed or refused? (CT, X-rays, U/S, labs)? Why? @ -None What meds were considered but not given or refused? Why? @ -None Did you discuss the management of the patient with other professionals (professionals i.e. , PA, GRANULIZING MACHINE OPERATOR, lab, RT, psych nurse, social problems specialist, lithographic retoucher apprentice, teacher, combat systems officer, case repairer)? Give summary @ -Poke with Dr. Deluca about the case and she agreed to come take the patient to the endoscopic lab Was smoking cessation discussed for >3mins.? @ -No Was critical care preformed (if so, how long)? @ -No Were there social determinants of health that impacted care today? How? (Homelessness, low income, unemployed, alcoholism, drug addiction, transportation, low edu. Level, literacy, decrease access to med. care, skilled nursing, rehab)? @ -No Was there de-escalation of care discussed even if they declined (Discuss DNR or withdrawal of care, Hospice)? DNR status @ -No What co-morbidities impacted this encounter? (DM, HTN, Smoking, COPD, CAD, Cancer, CVA, ARF, Chemo, Hep., AIDS, mental health diagnosis, sleep apnea, morbid obesity)? @ -None Was patient admitted / discharged? Hospital course, mention meds given and route, prescriptions, significant lab abnormalities, going to OR and other pertinent info. @ -Patient came in stating she has a piece of pork stuck in her esophagus. Patient states this happened in the past. Patient did receive Reglan Valium nitroglycerin as well as glucagon and that did not seem to help her. Patient then received another dose nitroglycerin and glucagon and again did not help. She continue to have esophageal obstruction so I spoke with Dr. Kumar she agreed to come down and get the patient and do an endoscopy on the patient. Undiagnosed new problem with uncertain prognosis? @ -No Drug Therapy requiring intensive monitoring for toxicity (Heparin, Nitro, Insulin, Cardizem)? @ -No Were any procedures done? @ -No Diagnosis/symptom? @ -default Acute, or Chronic, or Acute on Chronic? @ -Esophageal foreign body Uncomplicated (without systemic symptoms) or Complicated (systemic symptoms)? @ -acute Side effects of treatment? @ -No Exacerbation, Progression, or Severe Exacerbation? @ -No Poses a threat to life or bodily function? How? (Chest pain, [place], [place], pneumonia, PE, COPD, DKA, ARF, appy, cholecystitis, CVA, Diverticulitis, Homicidal, Suicidal, threat to staff... and all critical care pts) @ -No Disposition Clinical Impression: Esophageal foreign body Disposition: HOME SELF-CARE Instructions (If sedation given, give patient instructions): Esophageal Foreign Body (ED) Is patient prescribed a controlled substance at d/c from ED?: No Referrals: None,Stated [Primary Care Provider] - 1-2 days Time of Disposition: 17:21
[2022-11-29] MEDS ORDERED: PROPOFOL 10 MG/ML 20 ML VIAL IV ONE (18:00)
[2022-11-29] MEDS ORDERED: SODIUM CHLORIDE 0.9% 1,000 ML IV ONE (18:05)
[2022-11-29 20:08] VITALS: BP 141/81; PULSE 80; RESP 18; TEMP 98.5
--- NOTE | 2022-11-30 01:11 | PCN ---
PROCEDURE NOTE REQUESTING PHYSICIAN: None. BRIEF HISTORY: The patient is a 62-year-old pleasant white female who came to the emergency room with acute food impaction. She was eating pork for dinner last night, could not swallow any further. She came to the emergency room this afternoon, was given some IV glucagon and Reglan with no help. She is hence scheduled for an upper endoscopy on an emergency basis. PROCEDURE PERFORMED: EGD with biopsy and foreign body removal. PREOPERATIVE DIAGNOSIS: Acute food impaction. ANESTHESIA: IV sedation per Anesthesia. DESCRIPTION OF PROCEDURE: After informed consent was obtained from the patient, the procedure was done in the emergency room at the bedside. IV conscious sedation was administered by anesthesia under continuous monitoring. Initially, the Olympus CF180 video endoscope was inserted into the mouth, esophagus, intubated without any difficulty and was gradually advanced to the distal esophagus. There was a large meat bolus impacted in the distal esophagus. Initially, I tried to push the bolus into the stomach but was not successful, and hence using a tripod, I was able to piecemeal the meat bolus and subsequently I was able to push the rest of it into the stomach. The scope was advanced into the stomach and duodenum and carefully examined. Bulb and second part of the duodenum appeared normal. Scope at this time was withdrawn to the stomach adequately insufflated with air and upon careful examination, mucosa, antrum, body, cardia, and fundus appeared normal. Scope was then withdrawn to the esophagus. GE junction was located at 39 cm from the incisors. There was circumferential erythema with mucosal friability noted at the site of food impaction. There was distal esophageal stricture identified that did not impede the passage of the scope. Multiple biopsies were done from the mid and distal esophagus to evaluate for eosinophilic esophagitis. The patient tolerated the procedure well. IMPRESSION: 1. Distal esophageal food bolus impaction, status post removal as described above. 2. Distal esophageal stricture with mucosal erythema and friability consistent with reflux esophagitis, status post multiple biopsies to rule out eosinophilic esophagitis. RECOMMENDATIONS: Findings of this examination were discussed with the patient. No family available. She will be on a soft diet today. Advised to follow up in office in 2 weeks. In the meantime, start on Prilosec 20 mg daily and follow anti-reflux measures. MMODL / IJN: [id number] /
== END 2022-11-29 20:10 | disposition home or self-care (01) ==
LOC: EC 13:14
DX: T18.128A Food in esophagus causing other injury, initial encounter (principal); I10 Essential (primary) hypertension; F41.9 Anxiety disorder, unspecified; F31.9 Bipolar disorder, unspecified; F17.290 Nicotine dependence, other tobacco product, uncomplicated; Z88.0 Allergy status to penicillin; Z79.899 Other long term (current) drug therapy
CPT/HCPCS: 99284; 96374; 96375 ×2; 96376; 96361; 88305; 43239; 43247; J1610; J2765; J3360; J2704

== ENCOUNTER → 2022-12-24 | Outpatient (CLI) | payer MEDICARE, OTHER ==
[2022-12-24 20:42] LABS: HCT 40.7 % (37.2-46.3); HGB 13.4 g/dL (12.0-15.0); MCH 30.4 pg (27.0-32.0); MCHC 32.9 g/dL (32.0-37.0); MCV 92.3 fL (80.0-97.0); NRBC Per 100 WBC 0 /100 WBCS (0.0-0.0); Platelet Count 263 X 10*3/uL (140-440); RBC 4.41 X 10*6/uL (4.10-5.20); RDW 12.5 % (11.5-14.5); WBC 7.33 X 10*3/uL (4.50-10.00)
[2022-12-24 21:29] LABS: Magnesium 1.8 mg/dL (1.5-2.4)
== END | disposition home or self-care (01) ==
LOC: LABWHC1 14:41
PROVIDERS: ATTEND Physician Assistant Medical
DX: E55.9 Vitamin D deficiency, unspecified (principal); G47.00 Insomnia, unspecified; F19.11 Other psychoactive substance abuse, in remission
CPT/HCPCS: 36415; 82306; 83735; 84480; 85027

== ENCOUNTER 2023-02-26 03:52 | Inpatient (IN) | payer MEDICARE, OTHER ==
[2023-02-26] MEDS ORDERED: SODIUM CHLORIDE 0.9% 1,000 ML IV STA ×2 (04:19→07:13)
--- NOTE | 2023-02-26 04:25 | ED ---
General Adult HPI - General Chief complaint: Fever Stated complaint: FEVER,LOWER BACK PAIN Time Seen by Provider: 02/26/23 04:03 Source: patient Mode of arrival: ambulatory - History of Present Illness Initial comments: Dictation was produced using [employer] dictation software. please excuse any grammatical, word or spelling errors. Chief Complaint: 62-year-old female presents emergency department for fever History of Present Illness: 62-year-old female she states that she has measured temperature at home but had a fever 102. Patient states that the auscultation walking out of the rain to try and find a job right lower back pain. Shows as urinary symptoms. She is concerned she might have a UTI. Denies any lightheadedness. No abdominal pain. No cough or sore throat or runny nose The ROS documented in this emergency department record has been reviewed and confirmed by me. Those systems with pertinent positive or negative responses have been documented in the HPI. All other systems are other negative and/or noncontributory. - Related Data Previous Rx's Medication Instructions Recorded Ibuprofen [Motrin] 600 mg PO Q8H PRN #30 tab 03/01/22 LORazepam [Ativan] 1 mg PO HS PRN #14 tab 03/01/22 Nicotine 14Mg/24Hr Patch [Habitrol] 1 patch TRANSDERM DAILY #28 patch 03/01/22 OLANZapine [ZyPREXA] 10 mg PO HS #30 tab 03/01/22 Allergies Allergy/AdvReac Type Severity Reaction Status Date / Time Penicillins Allergy Unknown Rash/Hives/ Verified 02/26/23 04:00 Itching Review of Systems ROS Statement: Those systems with pertinent positive or pertinent negative responses have been documented in the HPI. ROS Other: All systems not noted in ROS Statement are negative. Past Medical History Past Medical History: Hyperlipidemia, Hypertension Additional Past Medical History / Comment(s): occ migraines, hemorrhoids, degenerative disks L4 and L5 History of Any Multi-Drug Resistant Organisms: None Reported Past Surgical History: Appendectomy, Section, Orthopedic Surgery Additional Past Surgical History / Comment(s): LEFT ARM (POST TRAUMATIC INJURY) reattached, RIGHT FOOT X3, LEFT KNEE ARTHROSCOPY, left oophorectomy, hemorroidectomy Past Anesthesia/Blood Transfusion Reactions: No Reported Reaction Past Psychological History: Anxiety, Bipolar, Depression, Panic Disorder Smoking Status: Former smoker, Vaper Past Alcohol Use History: None Reported Past Drug Use History: None Reported - Past Family History Mother Family Medical History: No Reported History General Exam - General Exam Comments Initial Comments: PHYSICAL EXAM: General Impression: Alert and oriented x3, not in acute distress HEENT: Normocephalic atraumatic, extra-ocular movements intact, pupils equal and reactive to light bilaterally, mucous membranes moist. Cardiovascular: Heart regular rate and rhythm Chest: Able to complete full sentences, no retractions, no tachypnea Abdomen: abdomen soft, non-tender, non-distended, no organomegaly Musculoskeletal: Pulses present and equal in all extremities, no peripheral edema Motor: no focal deficits noted Neurological: CN II-XII grossly intact, no focal motor or sensory deficits noted Skin: Intact with no visualized rashes Psych: Normal affect and mood Course Vital Signs 02/26/23 02/26/23 02/26/23 03:55 05:09 06:36 Temperature 99.2 F 97.0 F L Pulse Rate 106 H 85 84 Respiratory 16 12 Rate Blood Pressure 97/63 97/56 O2 Sat by Pulse 94 L 98 97 Oximetry Procedures - Sepsis Sepsis Focused Exam #1 Time Sepsis Criteria Met: 07:14 Sepsis Focused Exam Date: 02/26/23 Sepsis Focused Exam Time: 07:14 Sepsis Focused Exam Complete: Yes Vital Signs & RN Notes Reviewed: Yes Capillary Refill: < 2 Seconds: Fingers, Toes Peripheral Pulses: Normal: Radial (R), Radial (L), Posterior Tibialis (R), Posterior Tibialis (L), Dorsalis Pedis (R), Dorsalis Pedis (L) Skin Color: Normal for Patient Respiratory Exam: normal lung sounds Cardiovascular Exam: regular rate Medical Decision Making - Medical Decision Making Was pt. sent in by a medical professional or institution (, PA, RADIO RIGGER, urgent care, hospital, or [facility]...) When possible be specific @ -No Did you speak to anyone other than the patient for history (EMS, parent, family, police, friend...)? What history was obtained from this source @ -No Did you review nursing and triage notes (agree or disagree)? Why? @ -I reviewed and agree with nursing and triage notes Were old charts reviewed (outside hosp., previous admission, EMS record, old EKG, old radiological studies, urgent care reports/EKG's, [facility] records)? Report findings @ -No old charts were reviewed Differential Diagnosis (chest pain, altered mental status, abdominal pain women, abdominal pain men, vaginal bleeding, musculoskeletal, weakness, fever, dyspnea, syncope, headache, dizziness, GI bleed, back pain, seizure, CVA, palpatations, mental health)? @ -Differential Fever: Pneumonia, viral URI, endocarditis, myocarditis, pericarditis, otitis, sinusitis, peritonsillar Abscess, retropharyngeal Abscess, epiglottitis, peritonitis, appendicitis, Lala cystitis, diverticulitis, hepatitis, colitis, UTI, PID, TOA, pyelonephritis, prostatitis, epididymitis, meningitis, encepha litis, pulmonary embolism, CVA, thyroid storm, pancreatitis, adrenal crisis, cavernous sinus thrombosis, this is not meant to be an all-inclusive list. EKG interpreted by me (3pts min.). @ -None done X-rays interpreted by me (1pt min.). @ -None done CT interpreted by me (1pt min.). @ -None done U/S interpreted by me (1pt. min.). @ -None done What testing was considered but not performed or refused? (CT, X-rays, U/S, labs)? Why? @ -None What meds were considered but not given or refused? Why? @ -None Did you discuss the management of the patient with other professionals (professionals i.e. , PA, RADIO RIGGER, lab, RT, psych nurse, geriatric social worker, plant chief, teacher, veterinary medical officer, caser up)? Give summary @ -No Was smoking cessation discussed for >3mins.? @ -No Was critical care preformed (if so, how long)? @ -yes, 33 minutes Were there social determinants of health that impacted care today? How? (Homelessness, low income, unemployed, alcoholism, drug addiction, transportation, low edu. Level, literacy, decrease access to med. care, retirement, rehab)? @ -No Was there de-escalation of care discussed even if they declined (Discuss DNR or withdrawal of care, Hospice)? DNR status @ -No What co-morbidities impacted this encounter? (DM, HTN, Smoking, COPD, CAD, Cancer, CVA, ARF, Chemo, Hep., AIDS, mental health diagnosis, sleep apnea, morbid obesity)? @ -None Was patient admitted / discharged? Hospital course, mention meds given and route, prescriptions, significant lab abnormalities, going to OR and other pertinent info. @ -62-year-old female presents with constitutional symptoms along with suprapubic pain. Vital signs upon arrival shows low-grade temperature 99.2, rest of labs within acceptable limits. Patient well-appearing at the bedside she is in no acute distress. Laboratory evaluation obtained. Mild leukocytosis of 13.7. CBC and metabolic panel otherwise within acceptable limits. Urinalysis positive for urinary tract infection with greater 182 white blood ce lls in the urine. Patient given ceftriaxone. Patient's blood pressure has been soft. Patient would benefit from admission with medical monitoring. Undiagnosed new problem with uncertain prognosis? @ -No Drug Therapy requiring intensive monitoring for toxicity (Heparin, Nitro, Insulin, Cardizem)? @ -No Were any procedures done? @ -No Diagnosis/symptom? Acute, or Chronic, or Acute on Chronic? Uncomplicated (without systemic symptoms) or Complicated (systemic symptoms)? @ -1. Urinary tract infection Side effects of treatment? @ -No Exacerbation, Progression, or Severe Exacerbation? @ -No Poses a threat to life or bodily function? How? (Chest pain, [place], [place], pneumonia, PE, COPD, DKA, ARF, appy, cholecystitis, CVA, Diverticulitis, Homicidal, Stoner icidal, threat to staff... and all critical care pts) @ -yes - Lab Data Result diagrams: 02/26/23 04:28 02/26/23 04:28 Lab Results 02/26/23 02/26/23 02/26/23 Range/Units 04:28 04:28 04:28 WBC 13.7 H (3.8-10.6) k/uL RBC 4.32 (3.80-5.40) m/uL Hgb 13.3 (11.4-16.0) gm/dL Hct 39.6 (34.0-46.0) % MCV 91.6 (80.0-100.0) fL MCH 30.8 (25.0-35.0) pg MCHC 33.6 (31.0-37.0) g/dL RDW 12.3 (11.5-15.5) % Plt Count 292 (150-450) k/uL MPV 7.7 Neutrophils % 73 % Lymphocytes % 18 % Monocytes % 7 % Eosinophils % 1 % Basophils % 0 % Neutrophils # 10.0 H (1.3-7.7) k/uL Lymphocytes # 2.4 (1.0-4.8) k/uL Monocytes # 1.0 (0-1.0) k/uL Eosinophils # 0.1 (0-0.7) k/uL Basophils # 0.1 (0-0.2) k/uL ESR 52 H (0-20) mm/hr Sodium 134 L (137-145) mmol/L Potassium 4.1 (3.5-5.1) mmol/L Chloride 100 (98-107) mmol/L Carbon Dioxide 24 (22-30) mmol/L Anion Gap 10 mmol/L BUN 8 (7-17) mg/dL Creatinine 0.57 (0.52-1.04) mg/dL Est GFR (CKD-EPI)AfAm >90 (>60 ml/min/1.73 sqM) Est GFR (CKD-EPI)NonAf >90 (>60 ml/min/1.73 sqM) Glucose 156 H (74-99) mg/dL Calcium 8.9 (8.4-10.2) mg/dL C-Reactive Protein 3.3 H (<1.0) mg/dL Urine Color Light Yellow Urine Appearance Cloudy H (Clear) Urine pH 6.5 (5.0-8.0) Ur Specific [place] 1.007 (1.001-1.035) Urine Protein 1+ H (Negative) Urine Glucose (UA) Negative (Negative) Urine Ketones Negative (Negative) Urine Blood Moderate H (Negative) Urine Nitrite Negative (Negative) Urine Bilirubin Negative (Negative) Urine Urobilinogen <2.0 (<2.0) mg/dL Ur Leukocyte Esterase Large H (Negative) Urine RBC 3 (0-5) /hpf Urine WBC >182 H (0-5) /hpf Urine WBC Clumps Few H (None) /hpf Ur Squamous Epith Cells 7 H (0-4) /hpf Urine Bacteria Many H (None) /hpf Hyaline Casts 2 (0-2) /lpf Urine Mucus Rare H (None) /hpf Influenza Type A (PCR) (Not Detectd) Influenza Type B (PCR) (Not Detectd) RSV (PCR) (Not Detectd) SARS-CoV-2 (PCR) (Not Detectd) 02/26/23 Range/Units 05:09 WBC (3.8-10.6) k/uL RBC (3.80-5.40) m/uL Hgb (11.4-16.0) gm/dL Hct (34.0-46.0) % MCV (80.0-100.0) fL MCH (25.0-35.0) pg MCHC (31.0-37.0) g/dL RDW (11.5-15.5) % Plt Count (150-450) k/uL MPV Neutrophils % % Lymphocytes % % Monocytes % % Eosinophils % % Basophils % % Neutrophils # (1.3-7.7) k/uL Lymphocytes # (1.0-4.8) k/uL Monocytes # (0-1.0) k/uL Eosinophils # (0-0.7) k/uL Basophils # (0-0.2) k/uL ESR (0-20) mm/hr Sodium (137-145) mmol/L Potassium (3.5-5.1) mmol/L Chloride (98-107) mmol/L Carbon Dioxide (22-30) mmol/L Anion Gap mmol/L BUN (7-17) mg/dL Creatinine (0.52-1.04) mg/dL Est GFR (CKD-EPI)AfAm (>60 ml/min/1.73 sqM) Est GFR (CKD-EPI)NonAf (>60 ml/min/1.73 sqM) Glucose (74-99) mg/dL Calcium (8.4-10.2) mg/dL C-Reactive Protein (<1.0) mg/dL Urine Color Urine Appearance (Clear) Urine pH (5.0-8.0) Ur Specific [place] (1.001-1.035) Urine Protein (Negative) Urine Glucose (UA) (Negative) Urine Ketones (Negative) Urine Blood (Negative) Urine Nitrite (Negative) Urine Bilirubin (Negative) Urine Urobilinogen (<2.0) mg/dL Ur Leukocyte Esterase (Negative) Urine RBC (0-5) /hpf Urine WBC (0-5) /hpf Urine WBC Clumps (None) /hpf Ur Squamous Epith Cells (0-4) /hpf Urine Bacteria (None) /hpf Hyaline Casts (0-2) /lpf Urine Mucus (None) /hpf Influenza Type A (PCR) Not Detected (Not Detectd) Influenza Type B (PCR) Not Detected (Not Detectd) RSV (PCR) Not Detected (Not Detectd) SARS-CoV-2 (PCR) Not Detected (Not Detectd) Disposition Clinical Impression: UTI (urinary tract infection) Disposition: ADMITTED IP TO THIS HOSP Referrals: Kelin Stevenson MD [Primary Care Provider] - 1-2 days Decision Time: 07:15
[2023-02-26 04:49] LABS: Basophils # (A) 0.1 k/uL (0-0.2); Basophils % (A) 0 %; Eosinophils # (A) 0.1 k/uL (0-0.7); Eosinophils % (A) 1 %; HCT 39.6 % (34.0-46.0); HGB 13.3 gm/dL (11.4-16.0); Lymphocytes # (A) 2.4 k/uL (1.0-4.8); Lymphocytes % (A) 18 %; MCH 30.8 pg (25.0-35.0); MCHC 33.6 g/dL (31.0-37.0); MCV 91.6 fL (80.0-100.0); Mean Platelet Volume 7.7; Monocytes % (A) 7 %; Neutrophils % (A) 73 %; Platelet Count 292 k/uL (150-450); RBC 4.32 m/uL (3.80-5.40); RDW 12.3 % (11.5-15.5); WBC 13.7 k/uL (3.8-10.6)
[2023-02-26 04:55] LABS: Appearance,Urine Cloudy (Clear); Bacteria,Urine Many /hpf; Bilirubin,Urine Negative (Negative); Blood,Urine Moderate (Negative); Color,Urine Light Yellow; Glucose,Urine (UA) Negative (Negative); Hyaline Casts,Urine 2 /lpf (0-2); Ketones,Urine Negative (Negative); Leukocyte Esterase,Urine Large (Negative); Mucus,Urine Rare /hpf; Nitrite,Urine Negative (Negative); PH, Urine 6.5 (5.0-8.0); Protein,Urine 1+ (Negative); RBC,Urine 3 /hpf (0-5); Specific Gravity,Urine 1.007 (1.001-1.035); Squamous Epithelial Cell,Urine 7 /hpf (0-4); Urobilinogen,Urine <2.0 mg/dL (<2.0); WBC,Urine >182 /hpf (0-5)
[2023-02-26 05:09] LABS: African American GFR (CKD) >90 (>60 ml/min/1.73 sqM); Anion Gap 10 mmol/L; Blood Urea Nitrogen 8 mg/dL (7-17); C Reactive Protein 3.3 mg/dL (<1.0); Calcium 8.9 mg/dL (8.4-10.2); Carbon Dioxide 24 mmol/L (22-30); Chloride 100 mmol/L (98-107); Glucose 156 mg/dL (74-99); Non-African American GFR(CKD) >90 (>60 ml/min/1.73 sqM); Potassium 4.1 mmol/L (3.5-5.1); Sodium 134 mmol/L (137-145)
[2023-02-26 05:32] LABS: Erythrocyte Sedimentation Rate 52 mm/hr (0-20)
[2023-02-26] MEDS ORDERED: cefTRIAXone IN SWFI 1,000 MG/10 ML SYRINGE IVP STA (06:27)
[2023-02-26] MEDS ORDERED: NALOXONE 0.4 MG/ML 1 ML VIAL IV PRN (07:11)
[2023-02-26] MEDS: SODIUM CHLORIDE 0.9% 1,000 ML IV SCH ×2 (07:27→21:16)
--- NOTE | 2023-02-26 11:20 | US ---
EXAMINATION TYPE: US kidneys/renal and bladder DATE OF EXAM: 02/26/2023 COMPARISON: CT 04/24/2019 CLINICAL INDICATION: Female, 62 years old with history of Fever, UTI, rule out pyelonephritis; sepsis , UTI, rt flank pain EXAM MEASUREMENTS: Right Kidney: 11.4 x 4.9 x 4.3 cm Left Kidney: 10.0 x 4.8 x 5.6 cm Right Kidney: No hydronephrosis or masses seen Left Kidney: No hydronephrosis or masses seen Bladder: not distended There is no evidence for hydronephrosis at this point in time. No nephrolithiasis is seen. No sarwat s are identified. The urinary bladder is anechoic. Bilateral ureteral jets are seen. IMPRESSION: No evidence of obstructive uropathy or calculus.
[2023-02-26] MEDS: ACETAMINOPHEN TAB 325 MG TAB PO PRN ×2 (11:42→18:09)
--- NOTE | 2023-02-26 13:15 | P.HPIM ---
History of Present Illness H&P Date: 02/26/23 History of present illness; Patient is a 62-year-old lady with past medical history significant for anxiety, bipolar disorder presented to the ER because of fever. Patient stated that she was all right yesterday when she started noticing fever, temperature checked at home was 102. Patient also was Noticing suprapubic discomfort, complaining of increased frequency of urination. Denies any blood in the urine. Denies any complaint nausea, vomiting abdominal pain. Denies any flank pain. Initial lab work done showed white count of 13.7, hemoglobin 13.3, sodium 134, potassium 4.1, chloride 100, BUN 8, creatinine 0.57,. UA showed urine WBC greater than 182, leukocyte Estrace large amount, 1982 urine nitrate negative. Patient was admitted to internal medicine service for further evaluation and treatment REVIEW OF SYSTEMS: CONSTITUTIONAL: No fever, no malaise, no fatigue. HEENT: No recent visual problems or hearing problems. Denied any sore throat. CARDIOVASCULAR: No chest pain, orthopnea, PND, no palpitations, no syncope. PULMONARY: No shortness of breath, no cough, no hemoptysis. GASTROINTESTINAL: No diarrhea, no nausea, no vomiting, no abdominal pain. NEUROLOGICAL: No headaches, no weakness, no numbness. HEMATOLOGICAL: Denies any bleeding or petechiae. GENITOURINARY: As mentioned above MUSCULOSKELETAL/RHEUMATOLOGICAL: Denies any joint pain, swelling, or any muscle pain. ENDOCRINE: Denies any polyuria or polydipsia. The rest of the 14-point review of systems is negative. PHYSICAL EXAMINATION: GENERAL: The patient is alert and oriented x3, not in any acute distress. Well developed, well nourished. HEENT: Pupils are round and equally reacting to light. EOMI. No scleral icterus. No conjunctival pallor. Normocephalic, atraumatic. No pharyngeal erythema. No thyromegaly. CARDIOVASCULAR: S1 and S2 present. No murmurs, rubs, or gallops. PULMONARY: Chest is clear to auscultation, no wheezing or crackles. ABDOMEN: Soft, nontender, nondistended, normoactive bowel sounds. No palpable organomegaly. Right CVA tenderness noticeable MUSCULOSKELETAL: No joint swelling or deformity. EXTREMITIES: No cyanosis, clubbing, or pedal edema. NEUROLOGICAL: Gross neurological examination did not reveal any focal deficits. SKIN: No rashes. Assessment and plan Complicated UTI Sepsis Anxiety History of bipolar disorder Plan; Monitor vital signs Monitor CBC Monitor CMP Follow-up on urine culture Ordered ultrasound of kidneys Continue IV fluids Continue IV Rocephin Resume home meds Consult infectious disease Past Medical History Past Medical History: Hyperlipidemia, Hypertension Additional Past Medical History / Comment(s): occ migraines, hemorrhoids, degenerative disks L4 and L5 History of Any Multi-Drug Resistant Organisms: None Reported Past Surgical History: Appendectomy, Section, Orthopedic Surgery Additional Past Surgical History / Comment(s): LEFT ARM (POST TRAUMATIC INJURY) reattached, RIGHT FOOT X3, LEFT KNEE ARTHROSCOPY, left oophorectomy, hemorroidectomy Past Anesthesia/Blood Transfusion Reactions: No Reported Reaction Past Psychological History: Anxiety, Bipolar, Depression, Panic Disorder Smoking Status: Former smoker, Vaper Past Alcohol Use History: None Reported Past Drug Use History: None Reported - Past Family History Mother Family Medical History: No Reported History Medications and Allergies Home Medications Medication Instructions Recorded Confirmed Type RX: Ibuprofen [Motrin] 600 mg PO Q8H PRN #30 tab 03/01/22 Rx RX: LORazepam [Ativan] 1 mg PO HS PRN #14 tab 03/01/22 Rx RX: Nicotine 14Mg/24Hr Patch 1 patch TRANSDERM DAILY #28 patch 03/01/22 Rx [Habitrol] RX: OLANZapine [ZyPREXA] 10 mg PO HS #30 tab 03/01/22 Rx Allergies Allergy/AdvReac Type Severity Reaction Status Date / Time Penicillins Allergy Unknown Rash/Hives/ Verified 02/26/23 04:00 Itching Physical Exam Vitals: Vital Signs Temp Pulse Pulse Resp BP BP Pulse Ox 02/26/23 09:00 80 102/67 02/26/23 08:17 84 18 126/75 96 02/26/23 08:00 98.4 F 18 97 02/26/23 06:36 97.0 F L 84 12 97/56 97 02/26/23 05:09 85 98 02/26/23 03:55 99.2 F 106 H 16 97/63 94 L Intake and Output 02/25/23 02/26/23 02/26/23 22:59 06:59 14:59 Other: Weight 56.699 kg Results CBC & Chem 7: 02/26/23 04:28 02/26/23 04:28 Labs: Abnormal Lab Results - Last 24 Hours (Table) 02/26/23 02/26/23 02/26/23 Range/Units 04:28 04:28 04:28 WBC 13.7 H (3.8-10.6) k/uL Neutrophils # 10.0 H (1.3-7.7) k/uL ESR 52 H (0-20) mm/hr Sodium 134 L (137-145) mmol/L Glucose 156 H (74-99) mg/dL C-Reactive Protein 3.3 H (<1.0) mg/dL Urine Appearance Cloudy H (Clear) Urine Protein 1+ H (Negative) Urine Blood Moderate H (Negative) Ur Leukocyte Esterase Large H (Negative) Urine WBC >182 H (0-5) /hpf Urine WBC Clumps Few H (None) /hpf Ur Squamous Epith Cells 7 H (0-4) /hpf Urine Bacteria Many H (None) /hpf Urine Mucus Rare H (None) /hpf
[2023-02-26] MEDS ORDERED: ZOLPIDEM 5 MG TAB PO PRN (21:54)
[2023-02-27 05:24] LABS: ALT 20 U/L (4-34); AST 22 U/L (14-36); African American GFR (CKD) >90 (>60 ml/min/1.73 sqM); Albumin 3.3 g/dL (3.5-5.0); Albumin/Globulin Ratio 1.2; Alkaline Phosphatase 96 U/L (38-126); Anion Gap 7 mmol/L; Blood Urea Nitrogen 7 mg/dL (7-17); Calcium 8.5 mg/dL (8.4-10.2); Carbon Dioxide 25 mmol/L (22-30); Chloride 103 mmol/L (98-107); Globulin 2.8 g/dL; Glucose 141 mg/dL (74-99); Non-African American GFR(CKD) >90 (>60 ml/min/1.73 sqM); Sodium 135 mmol/L (137-145); Total Bilirubin 0.4 mg/dL (0.2-1.3); Total Protein 6.1 g/dL (6.3-8.2)
[2023-02-27 05:37] LABS: HCT 35.2 % (34.0-46.0); HGB 11.7 gm/dL (11.4-16.0); MCH 30.8 pg (25.0-35.0); MCHC 33.1 g/dL (31.0-37.0); MCV 93.1 fL (80.0-100.0); Mean Platelet Volume 8.1; Platelet Count 278 k/uL (150-450); RBC 3.78 m/uL (3.80-5.40); RDW 12.2 % (11.5-15.5); WBC 11.5 k/uL (3.8-10.6)
--- NOTE | 2023-02-27 10:54 | P.CONS ---
History of Present Illness - Reason for Consult Consult date: 02/26/23 UTI, sepsis Requesting physician: Lester Wilkins - Chief Complaint Weakness and flank pain x few days - History of Present Illness Patient is a 62-year-old female with a past medical history significant for hypertension, hyperlipidemia, anxiety and bipolar disorder pre senting to the hospital for evaluation of left flank pain and fever patient symptom has been going on for few days especially to the left flank area describes the pain to be sharp 6-7 out of 10 no radiation she did have burning and frequency of urine and develop a fever of 102 for the patient present to the hospital on arrival to the ER the patient had low-grade fever of 99.2 however this morning she did have a fever of 100.4 F patient was tachycardic however not hypotensive or need for supplemental oxygen White count was 13.7 with a left shift kidney function has been normal urine was positive influenza RSV and COVID testing was negative patient did have abdominal and bladder ultrasound no evidence of obstructive uropathy or calculus patient received a dose of Rocephin in the ER has been admitted to hospital infectious disease was consulted for further management of antibiotic therapy Review of Systems Positive point and negatives has been mentioned in the HPI, complete review of systems was performed and all other systems are negative Past Medical History Past Medical History: Hyperlipidemia, Hypertension Additional Past Medical History / Comment(s): occ migraines, hemorrhoids, degen erative disks L4 and L5 History of Any Multi-Drug Resistant Organisms: None Reported Past Surgical History: Appendectomy, Section, Orthopedic Surgery Additional Past Surgical History / Comment(s): LEFT ARM (POST TRAUMATIC INJURY) reattached, RIGHT FOOT X3, LEFT KNEE ARTHROSCOPY, left oophorectomy, hemorroidectomy Past Anesthesia/Blood Transfusion Reactions: No Reported Reaction Past Psychological History: Anxiety, Bipolar, Depression, Panic Disorder Smoking Status: Current every day smoker, Former smoker, Vaper Past Alcohol Use History: None Reported Past Drug Use History: None Reported - Past Family History Mother Family Medical History: No Reported History Medications and Allergies Home Medications Medication Instructions Recorded Confirmed Type Eszopiclone [Lunesta] 2 mg PO HS 02/26/23 02/26/23 History Cephalexin [Keflex] 500 mg PO Q8HR 3 Days #9 cap 02/28/23 Rx Allergies Allergy/AdvReac Type Severity Reaction Status Date / Time Penicillins Allergy Unknown Rash/Hives/ Verified 02/26/23 13:24 Itching Physical Exam Vitals: Vital Signs Temp Pulse Pulse Resp BP BP Pulse Ox 02/26/23 09:00 80 102/67 02/26/23 08:17 84 18 126/75 96 02/26/23 08:00 98.4 F 18 97 02/26/23 07:32 100.4 F H 85 16 113/73 02/26/23 06:36 97.0 F L 84 12 97/56 97 02/26/23 05:09 85 98 02/26/23 03:55 99.2 F 106 H 16 97/63 94 L Intake and Output 02/25/23 02/26/23 02/26/23 22:59 06:59 14:59 Other: Weight 56.699 kg 56.699 kg GENERAL DESCRIPTION: Middle-aged female lying in bed, no distress. No tachypnea or accessory muscle of respiration use. HEENT: Shows Pallor , no scleral icterus. Oral mucous membrane is dry. No pharyngeal erythema or thrush NECK: Trachea central, no thyromegaly. LUNGS: Unlabored breathing. Clear to auscultation anteriorly. No wheeze or crackle. HEART: S1, S2, regular rate and rhythm. No loud murmur ABDOMEN: Soft, no tenderness , guarding or rigidity, no organomegaly EXTREMITIES: No edema of feet. SKIN: No rash, no masses palpable. NEUROLOGICAL: The patient is awake, alert, oriented x3, mood and affect normal. Results CBC & Chem 7: 02/27/23 04:10 02/27/23 04:10 Labs: Abnormal Lab Results - Last 24 Hours (Table) 02/26/23 02/26/23 02/26/23 Range/Units 04:28 04:28 04:28 WBC 13.7 H (3.8-10.6) k/uL Neutrophils # 10.0 H (1.3-7.7) k/uL ESR 52 H (0-20) mm/hr Sodium 134 L (137-145) mmol/L Glucose 156 H (74-99) mg/dL C-Reactive Protein 3.3 H (<1.0) mg/dL Urine Appearance Cloudy H (Clear) Urine Protein 1+ H (Negative) Urine Blood Moderate H (Negative) Ur Leukocyte Esterase Large H (Negative) Urine WBC >182 H (0-5) /hpf Urine WBC Clumps Few H (None) /hpf Ur Squamous Epith Cells 7 H (0-4) /hpf Urine Bacteria Many H (None) /hpf Urine Mucus Rare H (None) /hpf Assessment and Plan (1) UTI (urinary tract infection) Status: Acute Code(s): N39.0 - URINARY TRACT INFECTION, SITE NOT SPECIFIED SNOMED Code(s): 62572179 Plan: 1patient presented hospital with sepsis in this patient who did have a fever tachycardia elevated white count left flank pain source likely left-sided pyelonephritis with a positive UA and likely from enteric gram-negative pathogen 2-patient will be started on Rocephin 2 g daily while waiting for the culture to finalize 3-ultrasound was negative for obstructive uropathy or abscess We will follow on clinical condition and cultures to further adjust medication if needed Thank you for this consultation we will follow the patient along with you Time with Patient: Greater than 30
--- NOTE | 2023-02-27 13:27 | P.PN ---
Subjective Progress Note Date: 02/27/23 Patient is a 62-year-old lady with past medical history significant for anxiety, bipolar disorder presented to the ER because of fever. Patient stated that she was all right yesterday when she started noticing fever, temperature checked at home was 102. Patient also was Noticing suprapubic discomfort, complaining of increased frequency of urination. Denies any blood in the urine. Denies any complaint nausea, vomiting abdominal pain. Denies any flank pain. Initial lab work done showed white count of 13.7, hemoglobin 13.3, sodium 134, potassium 4.1, chloride 100, BUN 8, creatinine 0.57,. UA showed urine WBC greater than 182, leukocyte Estrace large amount, 1982 urine nitrate negative. Patient was admitted to internal medicine service for further evaluation and treatment 02/27. Patient seen and examined. Last fever was yesterday evening, afebrile since. Patient keen to go home, discussed with her regarding need for her to be in the hospital and she was running fevers overnight. REVIEW OF SYSTEMS: CONSTITUTIONAL: No malaise,. CARDIOVASCULAR: No chest pain, no palpitations, no syncope. PULMONARY: No shortness of breath, no cough, GASTROINTESTINAL: No diarrhea, no nausea, no vomiting, no abdominal pain. NEUROLOGICAL: No headaches, no weakness, PHYSICAL EXAMINATION: GENERAL: The patient is alert and oriented x3, not in any acute distress. Well developed, well nourished. HEENT: Pupils are round and equally reacting to light. EOMI. No scleral icterus. No conjunctival pallor. Normocephalic, atraumatic. No pharyngeal erythema. No thyromegaly. CARDIOVASCULAR: S1 and S2 present. No murmurs, rubs, or gallops. PULMONARY: Chest is clear to auscultation, no wheezing or crackles. ABDOMEN: Soft, nontender, nondistended, normoactive bowel sounds. No palpable organomegaly. MUSCULOSKELETAL: No joint swelling or deformity. EXTREMITIES: No cyanosis, clubbing, or pedal edema. NEUROLOGICAL: Gross neurological examination did not reveal any focal deficits. SKIN: No rashes. Assessment and plan Complicated UTI Sepsis Anxiety History of bipolar disorder Monitor vital signs Monitor CBC Monitor CMP Follow-up on urine culture ultrasound of kidneys showed no kidney stones Continue IV fluids Continue IV Rocephin Follow-up in ID recommendations Objective - Vital Signs Vital signs: Vital Signs Temp 98.4 F 02/27/23 07:44 Pulse 84 02/27/23 07:44 Resp 17 02/27/23 07:44 BP 114/76 02/27/23 07:44 Pulse Ox 97 02/27/23 07:44 FiO2 Intake & Output 02/26/23 02/27/23 02/27/23 18:59 06:59 18:59 Intake Total 900 1700 Balance 900 1700 Weight 56.699 kg Intake: Intake, IV Titration 900 750 Amount Sodium Chloride 0.9% 1, 900 750 000 ml @ 75 mls/hr IV . [id number] [facility] Rx#:[id number] Oral 950 Other: Voiding Method Toilet # Voids 3 1 - Labs CBC & Chem 7: 02/27/23 04:10 02/27/23 04:10 Labs: Abnormal Lab Results - Last 24 Hours (Table) 02/27/23 02/27/23 Range/Units 04:10 04:10 WBC 11.5 H (3.8-10.6) k/uL RBC 3.78 L (3.80-5.40) m/uL Sodium 135 L (137-145) mmol/L Creatinine 0.51 L (0.52-1.04) mg/dL Glucose 141 H (74-99) mg/dL Total Protein 6.1 L (6.3-8.2) g/dL Albumin 3.3 L (3.5-5.0) g/dL
[2023-02-27] MEDS ORDERED: TEMAZEPAM 15 MG CAP PO SCH (21:00)
[2023-02-27] MEDS ORDERED: ZOLPIDEM 5 MG TAB PO PRN (22:18)
--- NOTE | 2023-02-27 22:42 | P.PN ---
Subjective Progress Note Date: 02/27/23 Principal diagnosis: Right-sided pyelonephritis Patient is a 62-year-old female with a past medical history significant for hypertension, hyperlipidemia, anxiety and bipolar disorder presenting to the hospital for evaluation of left flank pain and fever, patient has been diagnosed with right-sided pyelonephritis On today's evaluation that is 02/27/2023, the patient did spike a fever of 101F last evening however the patient is afebrile since then, the patient is feeling better she is breathing comfortably no chest pain shortness of breath or cough flank pain has improved no nausea no vomiting or diarrhea Objective - Vital Signs Vital signs: Vital Signs Temp 98.4 F 02/27/23 07:44 Pulse 84 02/27/23 07:44 Resp 17 02/27/23 07:44 BP 114/76 02/27/23 07:44 Pulse Ox 97 02/27/23 07:44 FiO2 Intake & Output 02/26/23 02/27/23 02/27/23 18:59 06:59 18:59 Intake Total 900 1700 Balance 900 1700 Weight 56.699 kg Intake: Intake, IV Titration 900 750 Amount Sodium Chloride 0.9% 1, 900 750 000 ml @ 75 mls/hr IV . [id number] [facility] Rx#:[id number] Oral 950 Other: Voiding Method Toilet # Voids 3 1 - Exam GENERAL DESCRIPTION: A middle-age female lying in bed in no distress RESPIRATORY SYSTEM: Unlabored breathing , decreased breath sounds at bases HEART: S1 S2 regular rate and rhythm , ABDOMEN: Soft , no tenderness EXTREMITIES: No edema feet - Labs CBC & Chem 7: 02/27/23 04:10 02/27/23 04:10 Labs: Abnormal Lab Results - Last 24 Hours (Table) 02/27/23 02/27/23 Range/Units 04:10 04:10 WBC 11.5 H (3.8-10.6) k/uL RBC 3.78 L (3.80-5.40) m/uL Sodium 135 L (137-145) mmol/L Creatinine 0.51 L (0.52-1.04) mg/dL Glucose 141 H (74-99) mg/dL Total Protein 6.1 L (6.3-8.2) g/dL Albumin 3.3 L (3.5-5.0) g/dL Assessment and Plan (1) UTI (urinary tract infection) Current Visit: Yes Status: Acute Code(s): N39.0 - URINARY TRACT INFECTION, SITE NOT SPECIFIED SNOMED Code(s): 34868221 Plan: 1patient presented hospital with sepsis in this patient who did have a fever tachycardia elevated white count left flank pain source likely left-sided pyelonephritis with a positive UA and likely from enteric gram-negative pathogen 2-ultrasound was negative for obstructive uropathy or abscess 3patient advised to stay in the hospital another day for IV antibiotic therapy in view of the fever last night and if the patient is afebrile and culture finalized by tomorrow she will be able to go home on oral antibiotic Time with Patient: Less than 30
[2023-02-28] MEDS: SODIUM CHLORIDE 0.9% 1,000 ML IV SCH ×2 (00:12→05:20)
[2023-02-28 02:22] VITALS: TEMP 98.5
[2023-02-28 08:44] VITALS: BP 92/48; PULSE 68; RESP 18
--- NOTE | 2023-02-28 09:25 | P.DS ---
Providers Date of admission: 02/26/23 07:11 Expected date of discharge: 02/28/23 Attending physician: Terrie De Anda Consults: 02/26/23 09:15 Consult Physician Routine Consulting Provider: Lisette Keys Consult Reason/Comments: Complicated UTI, sepsis Do you want consulting provider notified?: Yes Primary care physician: Kelin Stevenson Hospital Course: Final Diagnoses: Sepsis secondary to Acute UTI with gram-negative bacilli, suspected left-sided pyelonephritis. Ultrasound reported negative for obstructive uropathy or abscess. Anxiety Bipolar Depression Hospital course: This pleasant 62-year-old female with past medical history significant for hypertension, hyperlipidemia, anxiety, bipolar, depression, and multiple other medical issues presented to the hospital with fever, left leg pain. Evaluated by infectious disease, maintained on IV ceftriaxone. Fevers subsided, T-max 98.5. No further flank pain, minimal suprapubic tenderness to palpation. Denies chest pain, palpitations or shortness of breath. Denies nausea, vomiting or diarrhea. Denies abdominal pain. Significant clinical improvement. Patient will be discharged home today in a stable condition with guarded prognosis pending IDs clearance/recommendations. The impression and plan of care has been dictated as directed. : I performed a history and examination of this patient, discussed the same with the dictator. I agree with the dictator's note ,documented as a scribe. Any additional findings or plans will be noted. Microbiology 02/26/23 04:28 Urine,Voided Urine Culture - Preliminary Gram Neg Bacilli Patient Condition at Discharge: Stable Plan - Discharge Summary Discharge Rx Participant: Yes New Discharge Prescriptions: New Cephalexin [Keflex] 500 mg PO Q8HR 3 Days #9 cap No Action Eszopiclone [Lunesta] 2 mg PO HS Discharge Medication List Eszopiclone [Lunesta] 2 mg PO HS 02/26/23 [History] Cephalexin [Keflex] 500 mg PO Q8HR 3 Days #9 cap 02/28/23 [Rx] Follow up Appointment(s)/Referral(s): Kelin Stevenson MD [Primary Care Provider] - 3 Days
== END 2023-02-28 10:45 | disposition home or self-care (01) | DRG 872 ==
LOC: EC 03:52 → 4SSUR 07:11
PROVIDERS: ADMIT Family Medicine; ATTEND Family Medicine
DX: A41.50 Gram-negative sepsis, unspecified (principal); N12 Tubulo-interstitial nephritis, not specified as acute or chronic; F31.9 Bipolar disorder, unspecified; I10 Essential (primary) hypertension; E78.5 Hyperlipidemia, unspecified; Z20.822 Contact with and (suspected) exposure to COVID-19; Z88.0 Allergy status to penicillin; Z87.891 Personal history of nicotine dependence
CPT/HCPCS: 36415; 76770; 80048; 80053; 81001; 85025; 85027; 85652; 86140; 87077; 87086; 87186; 87636; 96361; 96374; 99285

== ENCOUNTER 2023-08-26 19:04 | Inpatient (IN) | payer MEDICARE, OTHER ==
[2023-08-26] MEDS ORDERED: SODIUM CHLORIDE 0.9% 500 ML 500 ML IV STA (19:31)
[2023-08-26] MEDS ORDERED: SODIUM CHLORIDE 0.9% 1,000 ML IV STA (19:31)
--- NOTE | 2023-08-26 19:38 | ED ---
Dizziness HPI - General Chief Complaint: Syncope Stated Complaint: Back Pain w/Syncope Time Seen by Provider: 08/26/23 19:30 Source: patient, RN notes reviewed, old records reviewed Mode of arrival: ambulatory Limitations: no limitations - History of Present Illness Initial Comments: This is a 63-year-old female the emergency department for evaluation of a syncopal event near syncopal event feeling weak lightheaded dizzy as of late. No current chest pain no shortness of breath the patient states that her oral intake is been diminished lightheadedness and dizziness MD Complaint: dizziness Timing: sudden onset Description: sense of movement History of Same: No History of Trauma: No Severity: mild Improves With: nothing Worsens With: nothing Associated Symptoms: denies other symptoms, chest pain - Related Data Home Medications Medication Instructions Recorded Confirmed Benztropine Mesylate [Cogentin] 0.5 mg PO BID 08/26/23 08/26/23 Ibuprofen [Motrin Ib] 400 mg PO DAILY 08/26/23 08/26/23 Olanzapine/Samidorphan Malate 1 tab PO HS 08/26/23 08/26/23 [Lybalvi 10-10 mg Tablet] Zolpidem [Ambien] 10 mg PO HS 08/26/23 08/26/23 Previous Rx's Medication Instructions Recorded Cyclobenzaprine [Flexeril] 10 mg PO HS PRN #21 tab 08/28/23 Nicotine 21Mg/24Hr Patch [Habitrol] 1 patch TRANSDERM DAILY patch 08/30/23 Midodrine [ProAmatine] 7.5 mg PO AC-TID #90 tab 09/02/23 Theophylline 24 Hour [Shawn-24] 200 mg PO DAILY #30 cap 09/02/23 Allergies Allergy/AdvReac Type Severity Reaction Status Date / Time Penicillins Allergy Unknown Rash/Hives/Itching Verified 08/26/23 20:22 all over body Review of Systems ROS Statement: Those systems with pertinent positive or pertinent negative responses have been documented in the HPI. ROS Other: All systems not noted in ROS Statement are negative. Past Medical History Past Medical History: Hyperlipidemia, Hypertension Additional Past Medical History / Comment(s): occ migraines, hemorrhoids, degenerative disks L4 and L5 History of Any Multi-Drug Resistant Organisms: None Reported Past Surgical History: Appendectomy, Section, Orthopedic Surgery Additional Past Surgical History / Comment(s): LEFT ARM (POST TRAUMATIC INJURY) reattached, RIGHT FOOT X3, LEFT KNEE ARTHROSCOPY, left oophorectomy, hemorroidectomy Past Anesthesia/Blood Transfusion Reactions: No Reported Reaction Past Psychological History: Anxiety, Bipolar, Depression, Panic Disorder Smoking Status: Current every day smoker, Former smoker, Vaper Past Alcohol Use History: None Reported Past Drug Use History: None Reported - Past Family History Mother Family Medical History: No Reported History General Exam Limitations: no limitations General appearance: alert, in no apparent distress, anxious, in distress Head exam: Present: atraumatic, normocephalic, normal inspection Eye exam: Present: normal appearance, PERRL, EOMI. Absent: scleral icterus, conjunctival injection, periorbital swelling ENT exam: Present: normal exam, mucous membranes moist Neck exam: Present: normal inspection. Absent: tenderness, meningismus, lymphadenopathy Respiratory exam: Present: normal lung sounds bilaterally. Absent: respiratory distress, wheezes, rales, rhonchi, stridor Cardiovascular Exam: Present: bradycardia, normal heart sounds. Absent: systolic murmur, diastolic murmur, rubs, gallop, clicks GI/Abdominal exam: Present: soft, normal bowel sounds. Absent: distended, tenderness, guarding, rebound, rigid Extremities exam: Present: normal inspection, full ROM, normal capillary refill. Absent: tenderness, pedal edema, joint swelling, calf tenderness Back exam: Present: normal inspection Neurological exam: Present: alert, oriented X3, CN II-XII intact Psychiatric exam: Present: normal affect, normal mood Skin exam: Present: warm, dry, intact, normal color. Absent: rash Course Vital Signs 08/26/23 08/26/23 08/26/23 19:18 19:27 19:30 Temperature 97.5 F L Pulse Rate 48 L 40 L Pulse Rate [ Shipping Clerk ] Respiratory 16 20 Rate Blood Pressure 71/47 103/66 O2 Sat by Pulse 98 91 L 100 Oximetry 08/26/23 08/26/23 08/26/23 19:40 19:44 19:50 Temperature Pulse Rate 43 L Pulse Rate [ 44 L Shipping Clerk ] Respiratory 16 27 H Rate Blood Pressure 125/72 O2 Sat by Pulse 99 Oximetry 08/26/23 08/26/23 08/26/23 20:00 20:20 20:30 Temperature Pulse Rate 49 L 41 L 42 L Pulse Rate [ Shipping Clerk ] Respiratory 19 9 L 6 L Rate Blood Pressure 171/94 171/94 O2 Sat by Pulse 98 99 Oximetry 08/26/23 08/26/23 08/26/23 20:40 21:00 21:20 Temperature Pulse Rate 43 L 41 L 42 L Pulse Rate [ Shipping Clerk ] Respiratory 6 L 18 17 Rate Blood Pressure 178/95 169/94 176/95 O2 Sat by Pulse 98 99 Oximetry 08/26/23 21:40 Temperature Pulse Rate 40 L Pulse Rate [ Shipping Clerk ] Respiratory 17 Rate Blood Pressure 121/58 O2 Sat by Pulse Oximetry - Reevaluation(s) Reevaluation #1: 08/26/23 20:55 Medical record is reviewed Reevaluation #2: 08/26/23 20:55 Patient has no recurrent syncope here in the ER Reevaluation #3: Patient informed of results and questions answered Reevaluation #4: 08/26/23 20:56 Was pt. sent in by a medical professional or institution (, PA, [employer], urgent care, hospital, or fdc...) When possible be specific @ -no Did you speak to anyone other than the patient for history (EMS, parent, family, police, friend...)? What history was obtained from this source @ -no Did you review nursing and triage notes (agree or disagree)? Why? @ -agree Are old charts reviewed (outside hosp., previous admission, EMS record, old EKG, old radiological studies, urgent care reports/EKG's, fdc records)? Report findings @ -yes Differential Diagnosis (chest pain, altered mental status, abdominal pain women, abdominal pain men, vaginal bleeding, weakness, fever, dyspnea, syncope, headache, dizziness, GI bleed, back pain, seizure, CVA, palpatations, mental health, musculoskeletal)? @ -prior EKG interpreted by me (3pts min.). @ -yes X-rays interpreted by me (1pt min.). @ -no CT interpreted by me (1pt min.). @ -no U/S interpreted by me (1pt. min.). @ -no What testing was considered but not performed or refused? (CT, X-rays, U/S, labs)? Why? @ -none What meds were considered but not given or refused? Why? @ -none Did you discuss the management of the patient with other professionals (professionals i.e. DrAguila, PA, [employer], lab, RT, psych nurse, dialysis social worker, biology lecturer, teacher, dispatch officer, case coordinator)? Give summary @ -no Was smoking cessation discussed for >3mins.? @ -no Was critical care preformed (if so, how long)? @ -yes31 Were there social determinants of health that impacted care today? How? (Homelessness, low income, unemployed, alcoholism, drug addiction, transportation, low edu. Level, literacy, decrease access to med. care, detention, rehab)? @ -none Was there de-escalation of care discussed even if they declined (Discuss DNR or withdrawal of care, Hospice)? DNR status @ -no What co-morbidities impacted this encounter? (DM, HTN, Smoking, COPD, CAD, Cancer, CVA, ARF, Chemo, Hep., AIDS, mental health diagnosis, sleep apnea, morbid obesity)? @ -none Was patient admitted / discharged? Hospital course, mention meds given and route, prescriptions, significant lab abnormalities, going to OR and other pertinent info. @ - 63 female with a syncopal near syncopal event prior to arrival with weakness lightheadedness and dizziness as of late. Patient does have bradycardia here in the ER will be admitted for further evaluation management of bradycardia and near-syncope Admitted Undiagnosed new problem with uncertain prognosis? @ -no Drug Therapy requiring intensive monitoring for toxicity (Heparin, Nitro, Insulin, Cardizem)? @ -no Were any procedures done? @ -no Diagnosis/symptom? @ -Bradycardia and syncope Acute, or Chronic, or Acute on Chronic? @ -Acute Uncomplicated (without systemic symptoms) or Complicated (systemic symptoms)? @ -Complicated Side effects of treatment? @ -no Exacerbation, Progression, or Severe Exacerbation? @ -exacerbation Poses a threat to life or bodily function? How? (Chest pain, USA, HI, pneumonia, PE, COPD, DKA, ARF, appy, cholecystitis, CVA, Diverticulitis, Homicidal, Suicidal, threat to staff... and all critical care pts) @ -yes arrhythmia Reevaluation #5: 08/26/23 20:57 Differential Syncope: Valvular disease, hypertrophic cardiomyopathy, pulmonary embolism, tamponade, tachycardia, bradycardia, HI, hypovolemia, hemorrhage, dissection, anemia, intracranial hemorrhage, seizure, hypoglycemia, carbon monoxide poisoning, this is not meant to be an all-inclusive list. - Consultations Consultation #1: [facility] to agrees to admit this patient EKG Findings - EKG Comments: EKG Findings:: EKG sinus bradycardia 40 TX 143 QRS 86 QTc 408 - EKG Results: EKG: interpreted by MOIZ Medical Decision Making - Medical Decision Making 63 female with a syncopal near syncopal event prior to arrival with weakness lightheadedness and dizziness as of late. Patient does have bradycardia here in the ER will be admitted for further evaluation management of bradycardia and near-syncope - Lab Data Result diagrams: 08/31/23 23:07 08/31/23 23:07 Lab Results 08/26/23 08/26/23 08/26/23 Range/Units 19:26 19:26 19:26 WBC 8.6 (3.8-10.6) k/uL RBC 4.48 (3.80-5.40) m/uL Hgb 13.9 (11.4-16.0) gm/dL Hct 40.7 (34.0-46.0) % MCV 91.0 (80.0-100.0) fL MCH 31.0 (25.0-35.0) pg MCHC 34.1 (31.0-37.0) g/dL RDW 13.0 (11.5-15.5) % Plt Count 328 (150-450) k/uL MPV 7.7 Neutrophils % 49 % Lymphocytes % 44 % Monocytes % 4 % Eosinophils % 1 % Basophils % 0 % Neutrophils # 4.2 (1.3-7.7) k/uL Lymphocytes # 3.8 (1.0-4.8) k/uL Monocytes # 0.3 (0-1.0) k/uL Eosinophils # 0.1 (0-0.7) k/uL Basophils # 0.0 (0-0.2) k/uL PT 11.0 (10.0-12.5) sec INR 1.0 (<1.2) APTT 26.4 (22.0-30.0) sec Sodium 135 L (137-145) mmol/L Potassium 3.8 (3.5-5.1) mmol/L Chloride 102 (98-107) mmol/L Carbon Dioxide 22 (22-30) mmol/L Anion Gap 11 mmol/L BUN 16 (7-17) mg/dL Creatinine 0.65 (0.52-1.04) mg/dL Est GFR (CKD-EPI)AfAm >90 (>60 ml/min/1.73 sqM) Est GFR (CKD-EPI)NonAf >90 (>60 ml/min/1.73 sqM) Glucose 121 H (74-99) mg/dL Plasma Lactic Acid Marcelino (0.7-2.0) mmol/L Calcium 9.5 (8.4-10.2) mg/dL Phosphorus 4.3 (2.5-4.5) mg/dL Magnesium 1.6 (1.6-2.3) mg/dL Total Bilirubin 0.8 (0.2-1.3) mg/dL AST 25 (14-36) U/L ALT 20 (4-34) U/L Alkaline Phosphatase 95 (38-126) U/L Troponin I (0.000-0.034) ng/mL NT-Pro-B Natriuret Pep 297 pg/mL Total Protein 6.7 (6.3-8.2) g/dL Albumin 4.0 (3.5-5.0) g/dL TSH 2.500 (0.465-4.680) mIU/L 08/26/23 08/26/23 Range/Units 19:26 19:26 WBC (3.8-10.6) k/uL RBC (3.80-5.40) m/uL Hgb (11.4-16.0) gm/dL Hct (34.0-46.0) % MCV (80.0-100.0) fL MCH (25.0-35.0) pg MCHC (31.0-37.0) g/dL RDW (11.5-15.5) % Plt Count (150-450) k/uL MPV Neutrophils % % Lymphocytes % % Monocytes % % Eosinophils % % Basophils % % Neutrophils # (1.3-7.7) k/uL Lymphocytes # (1.0-4.8) k/uL Monocytes # (0-1.0) k/uL Eosinophils # (0-0.7) k/uL Basophils # (0-0.2) k/uL PT (10.0-12.5) sec INR (<1.2) APTT (22.0-30.0) sec Sodium (137-145) mmol/L Potassium (3.5-5.1) mmol/L Chloride (98-107) mmol/L Carbon Dioxide (22-30) mmol/L Anion Gap mmol/L BUN (7-17) mg/dL Creatinine (0.52-1.04) mg/dL Est GFR (CKD-EPI)AfAm (>60 ml/min/1.73 sqM) Est GFR (CKD-EPI)NonAf (>60 ml/min/1.73 sqM) Glucose (74-99) mg/dL Plasma Lactic Acid Marcelino 0.9 (0.7-2.0) mmol/L Calcium (8.4-10.2) mg/dL Phosphorus (2.5-4.5) mg/dL Magnesium (1.6-2.3) mg/dL Total Bilirubin (0.2-1.3) mg/dL AST (14-36) U/L ALT (4-34) U/L Alkaline Phosphatase (38-126) U/L Troponin I <0.012 (0.000-0.034) ng/mL NT-Pro-B Natriuret Pep pg/mL Total Protein (6.3-8.2) g/dL Albumin (3.5-5.0) g/dL TSH (0.465-4.680) mIU/L - EKG Data -: EKG Interpreted by Me Critical Care Time Critical Care Time: Yes Total Critical Care Time: 31 Disposition Clinical Impression: Near syncope, Dehydration, Bradycardia, Syncope Disposition: ADMITTED IP TO THIS HOSP Condition: Fair Is patient prescribed a controlled substance at d/c from ED?: No Time of Disposition: 21:00
[2023-08-26 19:58] LABS: Basophils % (A) 0 %; Eosinophils # (A) 0.1 k/uL (0-0.7); Eosinophils % (A) 1 %; HCT 40.7 % (34.0-46.0); HGB 13.9 gm/dL (11.4-16.0); Lymphocytes # (A) 3.8 k/uL (1.0-4.8); Lymphocytes % (A) 44 %; MCHC 34.1 g/dL (31.0-37.0); Mean Platelet Volume 7.7; Monocytes # (A) 0.3 k/uL (0-1.0); Monocytes % (A) 4 %; Neutrophils # (A) 4.2 k/uL (1.3-7.7); Neutrophils % (A) 49 %; Platelet Count 328 k/uL (150-450); RBC 4.48 m/uL (3.80-5.40); WBC 8.6 k/uL (3.8-10.6)
[2023-08-26 20:05] LABS: Partial Thromboplastin Time 26.4 sec (22.0-30.0)
[2023-08-26 20:07] LABS: ALT 20 U/L (4-34); AST 25 U/L (14-36); African American GFR (CKD) >90 (>60 ml/min/1.73 sqM); Alkaline Phosphatase 95 U/L (38-126); Anion Gap 11 mmol/L; Blood Urea Nitrogen 16 mg/dL (7-17); Calcium 9.5 mg/dL (8.4-10.2); Carbon Dioxide 22 mmol/L (22-30); Chloride 102 mmol/L (98-107); Glucose 121 mg/dL (74-99); Magnesium 1.6 mg/dL (1.6-2.3); Non-African American GFR(CKD) >90 (>60 ml/min/1.73 sqM); Phosphorus 4.3 mg/dL (2.5-4.5); Potassium 3.8 mmol/L (3.5-5.1); Sodium 135 mmol/L (137-145); Total Bilirubin 0.8 mg/dL (0.2-1.3); Total Protein 6.7 g/dL (6.3-8.2)
[2023-08-26 20:15] LABS: NT-Pro-B-Type Natriuretic Pept 297 pg/mL
[2023-08-26] MEDS ORDERED: NALOXONE 0.4 MG/ML 1 ML VIAL IV PRN (20:49)
[2023-08-26] MEDS ORDERED: ONDANSETRON 4 MG/2 ML VIAL IVP PRN (20:49)
[2023-08-27 08:51] LABS: ALT 22 U/L (4-34); AST 46 U/L (14-36); African American GFR (CKD) >90 (>60 ml/min/1.73 sqM); Albumin 3.6 g/dL (3.5-5.0); Alkaline Phosphatase 76 U/L (38-126); Anion Gap 10 mmol/L; Blood Urea Nitrogen 16 mg/dL (7-17); Calcium 9.2 mg/dL (8.4-10.2); Carbon Dioxide 18 mmol/L (22-30); Chloride 111 mmol/L (98-107); Glucose 93 mg/dL (74-99); Magnesium 1.7 mg/dL (1.6-2.3); Non-African American GFR(CKD) >90 (>60 ml/min/1.73 sqM); Phosphorus 4.4 mg/dL (2.5-4.5); Potassium 5.3 mmol/L (3.5-5.1); Sodium 139 mmol/L (137-145); Total Bilirubin 1.2 mg/dL (0.2-1.3); Total Protein 6.6 g/dL (6.3-8.2)
[2023-08-27] MEDS ORDERED: KETOROLAC 15 MG/ML 1 ML VIAL IVP STA (08:54)
[2023-08-27] MEDS ORDERED: Acetaminophen-Codeine 300-30mg TAB PO STA (08:56)
[2023-08-27] MEDS ORDERED: hydrOXYzine HCL 25 MG TAB PO PRN (08:56)
[2023-08-27] MEDS ORDERED: Acetaminophen-Codeine 300-30mg TAB PO PRN (08:56)
[2023-08-27] MEDS ORDERED: FAMOTIDINE 20 MG/2 ML VIAL IV SCH (09:00)
--- NOTE | 2023-08-27 09:01 | P.HPIM ---
History of Present Illness This is a pleasant 63 years old female with multiple medical problems was history of bipolar disorder, cocaine abuse. Patient presents because of multiple syncopal episodes over the last 2-3 days associated with a bradycardia with heart rate was on 40s last night. Patient was also taken off clonidine for the last 3 months. Clonidine was stopped now. Heart rate this morning is still on 42. Her blood pressure was on the low side on admission 71/47, currently is improved 126/77. Patient states she has anxiety issue is very anxious and she looks restless complaining from low back pain on the left side which says it is worse over the last 2-3 weeks that she will tried everything for it like Tylenol, ibuprofen and other medication with no relief of pain. She says she has no weakness in her legs but her has been going on the right side that suppressed down to her right knee. But she has tenderness more on the left lower back. She denies any fall or trauma. She denies chest pain or dyspnea. No change in urine or bowel habits. No fever. No headache. No other weakness or blurred vision or slurred speech. Labs reviewed she has unremarkable CBC, INR, BMP, liver function tests, troponin is negative less than 0.012. Passages normal at 2.5 and EKG shows sinus bradycardia at 40 bpm Review of Systems Review of systems CONSTITUTIONAL: No fever, no malaise, no fatigue. HEENT: No recent visual problems or hearing problems. Denied any sore throat. CARDIOVASCULAR: No orthopnea, PND, no palpitations, no syncope. PULMONARY: No shortness of breath, no cough, no hemoptysis. GASTROINTESTINAL: No diarrhea, no nausea, no vomiting, no abdominal pain. Normoactive bowel sounds. NEUROLOGICAL: No headaches, no weakness, no numbness. HEMATOLOGICAL: Denies any bleeding or petechiae. GENITOURINARY: Denies any burning micturition, frequency, or urgency. MUSCULOSKELETAL/RHEUMATOLOGICAL: Denies any joint pain, swelling, or any muscle pain. Except what is mentioned above ENDOCRINE: Denies any polyuria or polydipsia. Past Medical History Past Medical History: Hyperlipidemia, Hypertension Additional Past Medical History / Comment(s): occ migraines, hemorrhoids, degenerative disks L4 and L5 History of Any Multi-Drug Resistant Organisms: None Reported Past Surgical History: Appendectomy, Section, Orthopedic Surgery Additional Past Surgical History / Comment(s): LEFT ARM (POST TRAUMATIC INJURY) reattached, RIGHT FOOT X3, LEFT KNEE ARTHROSCOPY, left oophorectomy, hemorroidectomy Past Anesthesia/Blood Transfusion Reactions: No Reported Reaction Past Psychological History: Anxiety, Bipolar, Depression, Panic Disorder Smoking Status: Current every day smoker, Vaper Past Alcohol Use History: None Reported Past Drug Use History: None Reported - Past Family History Mother Family Medical History: No Reported History Medications and Allergies Home Medications Medication Instructions Recorded Confirmed Type Benztropine Mesylate [Cogentin] 0.5 mg PO BID 08/26/23 08/26/23 History Ibuprofen [Motrin Ib] 400 mg PO DAILY 08/26/23 08/26/23 History Olanzapine/Samidorphan Malate 1 tab PO HS 08/26/23 08/26/23 History [Lybalvi 10-10 mg Tablet] Zolpidem [Ambien] 10 mg PO HS 08/26/23 08/26/23 History cloNIDine HCL [Catapres] 0.2 mg PO HS 08/26/23 08/26/23 History Allergies Allergy/AdvReac Type Severity Reaction Status Date / Time Penicillins Allergy Unknown Rash/Hives/Itching Verified 08/26/23 20:22 all over body Physical Exam Vitals: Vital Signs Temp Pulse Pulse Pulse Resp BP BP 08/27/23 07:48 97.8 F 79 20 126/77 08/27/23 02:56 97.9 F 40 L 19 106/67 08/26/23 23:35 97.9 F 42 L 19 107/58 08/26/23 21:40 40 L 17 121/58 08/26/23 21:20 42 L 17 176/95 08/26/23 21:00 41 L 18 169/94 08/26/23 20:40 43 L 6 L 178/95 08/26/23 20:30 42 L 6 L 171/94 08/26/23 20:20 41 L 9 L 171/94 08/26/23 20:00 49 L 19 08/26/23 19:50 27 H 08/26/23 19:44 44 L 08/26/23 19:40 43 L 16 125/72 08/26/23 19:30 40 L 20 103/66 08/26/23 19:27 08/26/23 19:18 97.5 F L 48 L 16 71/47 Pulse Ox 08/27/23 07:48 97 08/27/23 02:56 96 08/26/23 23:35 98 08/26/23 21:40 08/26/23 21:20 99 08/26/23 21:00 08/26/23 20:40 98 08/26/23 20:30 99 08/26/23 20:20 98 08/26/23 20:00 08/26/23 19:50 08/26/23 19:44 08/26/23 19:40 99 08/26/23 19:30 100 08/26/23 19:27 91 L 08/26/23 19:18 98 Intake and Output 08/26/23 08/27/23 08/27/23 22:59 06:59 14:59 Other: Voiding Method Toilet # Voids 3 Weight 56.699 kg GENERAL: The patient is alert and oriented x3, not in any acute distress. Well developed, well nourished. HEENT: Pupils are round and equally reacting to light. EOMI. No scleral icterus. No conjunctival pallor. Normocephalic, atraumatic. No pharyngeal erythema. No thyromegaly. CARDIOVASCULAR: S1 and S2 present. No murmurs, rubs, or gallops. PULMONARY: Chest is clear to auscultation, no wheezing , no crackles. ABDOMEN: Soft, nontender, nondistended, normoactive bowel sounds. No palpable organomegaly. -MUSCULOSKELETAL: No joint swelling or deformity. left lower back tenderness EXTREMITIES: No cyanosis, clubbing, or pedal edema. NEUROLOGICAL: Gross neurological examination did not reveal any focal deficits. SKIN: No rashes. no petechiae. Results CBC & Chem 7: 08/26/23 19:26 08/26/23 19:26 Labs: Abnormal Lab Results - Last 24 Hours (Table) 08/26/23 Range/Units 19: Sodium 135 L (137-145) mmol/L Glucose 121 H (74-99) mg/dL Thrombosis Risk Factor Assmnt - Choose All That Apply Any of the Below Risk Factors Present?: Yes Each Risk Factor Represents 2 Points: Age 61-74 years Thrombosis Risk Factor Assessment Total Risk Factor Score: 2 Thrombosis Risk Factor Assessment Level: Low Risk Assessment and Plan Assessment: Multiple syncopal episodes secondary to sinus bradycardia while she was taking clonidine which is stopped now. Severe low back pain with tenderness with no trauma with radiculopathy as tingling on the right lower extremity. Anxiety nicotine dependence History of bipolar disorder History of cocaine abuse Plan: Continue with telemetry monitoring DC clonidine Cartilage consult Continue gentle hydration And lidocaine patch and Toradol when necessary and orthopedic team consult for her lower back pain nicotine patch Labs and medication were reviewed.. Continue same treatment. Continue with symptomatic treatment. Resume home medication. Monitor labs and vitals. DVT and GI prophylaxis. Further recommendations as per clinical course of the patient DVT prophylaxis: Subcutaneous heparin GI Prophylaxis: Pepcid PT/OT: Pending Prognosis is guarded
[2023-08-27 09:46] LABS: Basophils % (A) 0 %; Eosinophils # (A) 0.1 k/uL (0-0.7); Eosinophils % (A) 1 %; HCT 39.4 % (34.0-46.0); HGB 13.4 gm/dL (11.4-16.0); Lymphocytes # (A) 2.8 k/uL (1.0-4.8); Lymphocytes % (A) 28 %; MCH 31.4 pg (25.0-35.0); MCHC 34.1 g/dL (31.0-37.0); MCV 92.1 fL (80.0-100.0); Mean Platelet Volume 9.7; Monocytes # (A) 0.5 k/uL (0-1.0); Monocytes % (A) 4 %; Neutrophils # (A) 6.7 k/uL (1.3-7.7); Neutrophils % (A) 66 %; Platelet Count 259 k/uL (150-450); RBC 4.28 m/uL (3.80-5.40); RDW 12.8 % (11.5-15.5); WBC 10.2 k/uL (3.8-10.6)
[2023-08-27] MEDS: NICOTINE 21MG/24HR PATCH TRANSDERM SCH (10:19)
[2023-08-27] MEDS: LIDOCAINE 4% PATCH TOPICAL SCH (10:19)
[2023-08-27] MEDS ORDERED: CYCLOBENZAPRINE 10 MG TAB PO STA (10:28)
[2023-08-27] MEDS: FAMOTIDINE 20 MG/2 ML VIAL IV SCH ×2 (10:40→20:24)
[2023-08-27] MEDS: HEPARIN SODIUM,PORCINE 5,000 UNIT/ML 1 ML VIAL SQ SCH ×2 (10:40→20:24)
[2023-08-27] MEDS: SODIUM CHLORIDE 0.9% 1,000 ML IV SCH ×2 (10:41→20:24)
--- NOTE | 2023-08-27 12:17 | CT ---
EXAMINATION TYPE: CT lumbar spine wo con CT DLP: 459.8 mGycm, Automated exposure control for dose reduction was used. DATE OF EXAM: 08/27/2023 11:53 AM COMPARISON: 04/24/2019. CLINICAL INDICATION:Female, 63 years old with history of back pain; PHH, Lower back pain, denies inju ry TECHNIQUE: Multiple axial images were obtained from the midportion of T11 through the sacroiliac angelo nts. Soft tissue and bone windows in coronal and sagittal planes were obtained and reviewed. Contrast used: mL of , none. Oral contrast used: none. FINDINGS: Alignment: There are 5 lumbar type vertebral bodies within normal alignment. Bone: No evidence of fracture is identified. Mild multilevel disc degeneration changes with osteophy arnol and disc bulging. Discs: T12-L1: No spinal canal or neural foraminal stenosis is identified. L1-L2: No spinal canal or neural foraminal stenosis is identified. L2-L3: No spinal canal or neural foraminal stenosis is identified. L3-L4: Facet joint arthropathy and disc bulging result with mild spinal canal stenosis and mild bilat eral neural foraminal stenosis. L4-L5: Facet joint arthropathy and disc bulging result with moderate spinal canal stenosis and mild b ilateral neural foraminal stenosis. L5-S1: Facet joint arthropathy and disc bulging result with mild spinal canal stenosis and mild bilat eral neural foraminal stenosis. Other: Nonobstructing right 4 mm calculus. IMPRESSION: 1. No evidence for spinal fracture. 2. Mild/moderate facet arthropathy throughout the lower lumbar spine. No evidence for significant sheila ral foraminal stenosis. There is moderate L4-L5 spinal canal stenosis secondary disc bulging.
[2023-08-27] MEDS: KETOROLAC 15 MG/ML 1 ML VIAL IVP SCH ×3 (13:15→23:26)
--- NOTE | 2023-08-27 13:26 | P.CRDCN ---
History of Present Illness Consult date: 08/27/23 Consult reason: sycope, shortness of breath, hypotension, other (bradycardia) Chief complaint: fatigue, shortness of breath, syncope History of present illness: History of present illness: Lee is a pleasant 63-year-old female with significant past medical history of bipolar disorder, chronic back pain who presented with complaints of syncope. 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 She reports that she has had multiple near syncopal episodes and one episode of actually losing consciousness. She reports that she will feel her knees but: Ventral fall to the floor and feel lightheaded. She was hypotensive upon arrival to the ER 71/47. She was also bradycardic with her heart rates in the 40s. She reports that she has been feeling more fatigued, short of breath, and difficulty swallowing for the past couple weeks. She does suffer from chronic back pain. Previously she had been eating okay however for the last 4 days she has not had much of an appetite and therefore is not eating or drinking well. She does report having urinary frequency, denies any dysuria. Troponin were negative 3, BNP 297, TSH was normal. She denies any chest pain or pressure. Denies any nausea, vomiting, diarrhea. She does report feeling very anxious today with some shortness of breath. She did have a prior heart catheterization October 2019 that revealed normal coronary arteries. Prior echo 10/2019 with EF 6065%. REVIEW OF SYSTEMS: No fever or chills. No cough or expectoration. No diaphoresis. Patient denies headache, blurred vision, double vision. Patient denies any stomach discomfort. No nausea, vomiting. No hematochezia. No hematemesis. Denies any black stools or blood in stools. Denies dysuria or hem aturia. Reports urinary frequency. No muscle weakness or numbness. No chest pain or pressure. Reports fatigue, shortness of breath, lightheadedness. PHYSICAL EXAMINATION: This is a 63-year-old female, appears older than stated age, in no apparent distress at the time of my examination. HEENT: Head is atraumatic, normocephalic. Pupils are equal, round. Sclerae anicteric. Conjunctivae are clear. Mucous membranes of the mouth are moist. Neck is supple. There is no jugular venous distention. No carotid bruit is heard. CHEST EXAMINATION: Lungs are clear to auscultation. No chest wall tenderness is noted on palpation or with deep breathing. HEART EXAMINATION: Bradycardia. S1, S2 heard. No murmurs, gallops or rub. ABDOMEN: Soft, nontender. Bowel sounds are heard. EXTREMITIES: 2+ peripheral pulses with no evidence of peripheral edema and no calf tenderness noted. NEUROLOGIC EXAMINATION: Patient is awake, alert and oriented x3. IMPRESSION AND PLAN: 1. Hypotension 2. Syncope 3. Bradycardia 4. Bipolar 5. Chronic back pain 6. Urinary frequency PLAN: We will check d-dimer. Check ECHO to eval heart function and structure. UA to rule out infection. Recommend trying alternaitve to clonidine for sleep given hypotension. Continue to monitor on telemetry, no indication for a pacemaker at this time, will continue to monitor. I am dictating on behalf of Dr. Sandip Merida's history/physical and assessment/plan. Past Medical History Past Medical History: Hyperlipidemia, Hypertension Additional Past Medical History / Comment(s): occ migraines, hemorrhoids, degenerative disks L4 and L5 History of Any Multi-Drug Resistant Organisms: None Reported Past Surgical History: Appendectomy, Section, Orthopedic Surgery Additional Past Surgical History / Comment(s): LEFT ARM (POST TRAUMATIC INJURY) reattached, RIGHT FOOT X3, LEFT KNEE ARTHROSCOPY, left oophorectomy, hemorroidectomy Past Anesthesia/Blood Transfusion Reactions: No Reported Reaction Past Psychological History: Anxiety, Bipolar, Depression, Panic Disorder Smoking Status: Current every day smoker, Vaper Past Alcohol Use History: None Reported Past Drug Use History: None Reported - Past Family History Mother Family Medical History: No Reported History Medications and Allergies Home Medications Medication Instructions Recorded Confirmed Type Benztropine Mesylate [Cogentin] 0.5 mg PO BID 08/26/23 08/26/23 History Ibuprofen [Motrin Ib] 400 mg PO DAILY 08/26/23 08/26/23 History Olanzapine/Samidorphan Malate 1 tab PO HS 08/26/23 08/26/23 History [Lybalvi 10-10 mg Tablet] Zolpidem [Ambien] 10 mg PO HS 08/26/23 08/26/23 History cloNIDine HCL [Catapres] 0.2 mg PO HS 08/26/23 08/26/23 History Allergies Allergy/AdvReac Type Severity Reaction Status Date / Time Penicillins Allergy Unknown Rash/Hives/Itching Verified 08/26/23 20:22 all over body Physical Exam Vitals: Vital Signs Temp Pulse Pulse Pulse Resp BP BP 08/27/23 07:48 97.8 F 79 20 126/77 08/27/23 02:56 97.9 F 40 L 19 106/67 08/26/23 23:35 97.9 F 42 L 19 107/58 08/26/23 21:40 40 L 17 121/58 08/26/23 21:20 42 L 17 176/95 08/26/23 21:00 41 L 18 169/94 08/26/23 20:40 43 L 6 L 178/95 08/26/23 20:30 42 L 6 L 171/94 08/26/23 20:20 41 L 9 L 171/94 08/26/23 20:00 49 L 19 08/26/23 19:50 27 H 08/26/23 19:44 44 L 08/26/23 19:40 43 L 16 125/72 08/26/23 19:30 40 L 20 103/66 08/26/23 19:27 08/26/23 19:18 97.5 F L 48 L 16 71/47 Pulse Ox 08/27/23 07:48 97 08/27/23 02:56 96 08/26/23 23:35 98 08/26/23 21:40 08/26/23 21:20 99 08/26/23 21:00 08/26/23 20:40 98 08/26/23 20:30 99 08/26/23 20:20 98 08/26/23 20:00 08/26/23 19:50 08/26/23 19:44 08/26/23 19:40 99 08/26/23 19:30 100 08/26/23 19:27 91 L 08/26/23 19:18 98 Intake and Output 08/26/23 08/27/23 08/27/23 22:59 06:59 14:59 Other: Voiding Method Toilet # Voids 3 Weight 56.699 kg Results 08/27/23 07:20 08/27/23 07:20 Cardiac Enzymes 08/26/23 08/26/23 08/26/23 Range/Units 19:26 19:26 22:38 AST 25 (14-36) U/L Troponin I <0.012 <0.012 (0.000-0.034) ng/mL 08/27/23 08/27/23 Range/Units 00:15 07:20 AST 46 H (14-36) U/L Troponin I <0.012 (0.000-0.034) ng/mL Coagulation 08/26/23 Range/Units 19:26 PT 11.0 (10.0-12.5) sec APTT 26.4 (22.0-30.0) sec CBC 08/26/23 08/27/23 Range/Units 19:26 07:20 WBC 8.6 10.2 (3.8-10.6) k/uL RBC 4.48 4.28 (3.80-5.40) m/uL Hgb 13.9 13.4 (11.4-16.0) gm/dL Hct 40.7 39.4 (34.0-46.0) % Plt Count 328 259 (150-450) k/uL Comprehensive Metabolic Panel 08/26/23 08/27/23 Range/Units 19:26 07:20 Sodium 135 L 139 (137-145) mmol/L Potassium 3.8 5.3 H (3.5-5.1) mmol/L Chloride 102 111 H (98-107) mmol/L Carbon Dioxide 22 18 L (22-30) mmol/L BUN 16 16 (7-17) mg/dL Creatinine 0.65 0.53 (0.52-1.04) mg/dL Glucose 121 H 93 (74-99) mg/dL Calcium 9.5 9.2 (8.4-10.2) mg/dL AST 25 46 H (14-36) U/L ALT 20 22 (4-34) U/L Alkaline Phosphatase 95 76 (38-126) U/L Total Protein 6.7 6.6 (6.3-8.2) g/dL Albumin 4.0 3.6 (3.5-5.0) g/dL Current Medications Generic Name Dose Route Start Last Admin Trade Name Freq PRN Reason Stop Dose Admin Acetaminophen/Codeine Phosphate 1 each 08/27/23 08:56 Acetaminophen-Codeine 300-30mg Tab PO Q6HR PRN Pain Famotidine 20 mg 08/27/23 10:00 08/27/23 10:40 Famotidine 20 Mg/2 Ml Vial IV 20 mg Q12HR BARRY Administration Heparin Sodium (Porcine) 5,000 unit 08/27/23 10:00 08/27/23 10:40 Heparin Sodium,Porcine 5,000 Unit/Ml 1 Ml Vial SQ 5,000 unit Q12HR BARRY Administration Hydroxyzine HCl 25 mg 08/27/23 08:56 Hydroxyzine Hcl 25 Mg Tab PO QID PRN Itching Sodium Chloride 1,000 mls @ 75 mls/hr 08/27/23 09:00 08/27/23 10:41 Saline 0.9% IV 08/29/23 09:01 75 mls/hr .[id number] BARRY Administration Ketorolac Tromethamine 15 mg 08/27/23 12:00 Ketorolac 15 Mg/Ml 1 Ml Vial IVP 09/01/23 08:54 Q6HR BARRY Lidocaine 1 patch 08/27/23 09:00 08/27/23 10:19 Lidocaine 4% Patch TOPICAL 1 patch DAILY BARRY Administration Protocol Naloxone HCl 0.2 mg 08/26/23 20:49 Naloxone 0.4 Mg/Ml 1 Ml Vial IV Q2M PRN Opioid Reversal Nicotine 1 patch 08/27/23 09:00 08/27/23 10:19 Nicotine 21mg/24hr Patch TRANSDERM 1 patch DAILY BARRY Administration Ondansetron HCl 4 mg 08/26/23 20:49 08/27/23 10:23 Ondansetron 4 Mg/2 Ml Vial IVP 4 mg Q8HR PRN Administration Nausea And Vomiting Intake and Output 08/26/23 08/27/23 08/27/23 22:59 06:59 14:59 Other: Voiding Method Toilet # Voids 3 Weight 56.699 kg 08/27/23 07:20 08/27/23 07:20
--- NOTE | 2023-08-27 16:33 | CA ---
Transthoracic Echo Report Name: Shirley Nieves Age: 63 Gender: F : 1960 Exam Date: 08/27/2023 13:31 Exam Location: [facility] Ht (in): 62 Wt (lb): 125 Ordering Physician: Andree Conroy Attending/Referring Phys: Director Payment Estee Adorno RDCS Procedure CPT: Indications: shortness of breath, bradycardia Cardiac Hx: Technical Quality: Fair Contrast 1: Total Dose (mL): Contrast 2: Total Dose (mL): MEASUREMENTS (Male / Female) Normal Values 2D ECHO LV Diastolic Diameter PLAX 3.6 cm 4.2 - 5.9 / 3.9 - 5.3 cm LV Systolic Diameter PLAX 2.6 cm IVS Diastolic Thickness 1.2 cm 0.6 - 1.0 / 0.6 - 0.9 cm LVPW Diastolic Thickness 1.2 cm 0.6 - 1.0 / 0.6 - 0.9 cm LV Relative Wall Thickness 0.7 RV Internal Dim ED PLAX 2.3 cm LA Volume 48.7 cm??? 18 - 58 / 22 - 52 cm??? LA Volume Index 30.8 cm???/m??? 16 - 28 cm???/m??? M-MODE Aortic Root Diameter MM 2.6 cm LA Systolic Diameter MM 3.5 cm LA Ao Ratio MM 1.4 AV Cusp Separation MM 1.5 cm DOPPLER AV Peak Velocity 167.1 cm/s AV Peak Gradient 11.2 mmHg AV Mean Velocity 110.6 cm/s AV Mean Gradient 5.3 mmHg AV Velocity Time Integral 40.4 cm LVOT Peak Velocity 134.6 cm/s LVOT Peak Gradient 7.3 mmHg LVOT Velocity Time Integral 30.6 cm MV Area PHT 3.1 cm??? Mitral E Point Velocity 92.7 cm/s Mitral A Point Velocity 67.6 cm/s Mitral E to A Ratio 1.4 MV Deceleration Time 246.2 ms MV E' Velocity 8.4 cm/s Mitral E to MV E' Ratio 11.1 TR Peak Velocity 252.2 cm/s TR Peak Gradient 25.4 mmHg Right Ventricular Systolic Press 29.7 mmHg FINDINGS Left Ventricle Mildly increased left ventricular wall thickness. Left ventricular cavity size normal. Normal left ventricular wall motion. Left ventricular ejection fraction is estimated at 55-60 %. Right Ventricle Normal right ventricular size and function. Right ventricular systolic pressure within normal limits. Right Atrium Normal right atrial size. Left Atrium Mildly increased left atrial volume. Mildly increased left atrial area. Mitral Valve Structurally normal mitral valve. Mild mitral annular calcification. Mild mitral regurgitation. Aortic Valve Trileaflet aortic valve. No aortic valve stenosis or regurgitation. Tricuspid Valve Structurally normal tricuspid valve. Mild tricuspid regurgitation. Pulmonic Valve Trace pulmonic regurgitation. Pericardium No pericardial effusion. Aorta Normal size aortic root and proximal ascending aorta. CONCLUSIONS Mild increased left ventricular wall thickness Left ventricular EF 55-60% Mildly dilated left atrium Mild mitral regurgitation Mild tricuspid regurgitation RVSP 29 Previewed by: Dr. Sandip Merida DO (Electronically Signed) Final Date: 27 August 2023 16:32
[2023-08-27 17:38] LABS: Appearance,Urine Cloudy (Clear); Bacteria,Urine Rare /hpf; Bilirubin,Urine Negative (Negative); Blood,Urine Trace (Negative); Color,Urine Yellow; Glucose,Urine (UA) Negative (Negative); Hyaline Casts,Urine 3 /lpf (0-2); Ketones,Urine Trace (Negative); Leukocyte Esterase,Urine Large (Negative); Mucus,Urine Moderate /hpf; Nitrite,Urine Positive (Negative); PH, Urine 5.5 (5.0-8.0); Protein,Urine Negative (Negative); RBC,Urine 4 /hpf (0-5); Specific Gravity,Urine 1.017 (1.001-1.035); Squamous Epithelial Cell,Urine 4 /hpf (0-4); Urobilinogen,Urine <2.0 mg/dL (<2.0); WBC,Urine 122 /hpf (0-5)
[2023-08-27 17:44] LABS: Amphetamine Screen,Urine Not Detected (NotDetected); Barbiturate Screen,Urine Not Detected (NotDetected); Benzodiazepines Screen,Urine Not Detected (NotDetected); Cocaine Screen,Urine Not Detected (NotDetected); Methadone Screen, Urine Not Detected (NotDetected); Opiate Screen,Urine Detected (NotDetected); Oxycodone Screen, Urine Not Detected (NotDetected); Phencyclidine Screen,Urine Not Detected (NotDetected); Tricyclic Antidepressant,Urine Not Detected (NotDetected); Urn Cannabinoid Scrn Detected (NotDetected)
[2023-08-27] MEDS: MELATONIN 3 MG TABLET PO SCH (20:24)
[2023-08-28] MEDS: KETOROLAC 15 MG/ML 1 ML VIAL IVP SCH ×3 (04:14→18:14)
[2023-08-28] MEDS ORDERED: HYDROcodone/APAP 5-325MG 1 EACH TAB PO STA (07:22)
[2023-08-28] MEDS ORDERED: CYCLOBENZAPRINE 5 MG TAB PO PRN (07:23)
--- NOTE | 2023-08-28 07:27 | P.PN ---
Subjective This is a pleasant 63 years old female with multiple medical problems was history of bipolar disorder, cocaine abuse. Patient presents because of multiple syncopal episodes over the last 2-3 days associated with a bradycardia with heart rate was on 40s last night. Patient was also taken off clonidine for the last 3 months. Clonidine was stopped now. Heart rate this morning is still on 42. Her blood pressure was on the low side on admission 71/47, currently is improved 126/77. Patient states she has anxiety issue is very anxious and she looks restless complaining from low back pain on the left side which says it is worse over the last 2-3 weeks that she will tried everything for it like Tylenol, ibuprofen and other medication with no relief of pain. She says she has no weakness in her legs but her has been going on the right side that suppressed down to her right knee. But she has tenderness more on the left lower back. She denies any fall or trauma. She denies chest pain or dyspnea. No change in urine or bowel habits. No fev er. No headache. No other weakness or blurred vision or slurred speech. Labs reviewed she has unremarkable CBC, INR, BMP, liver function tests, troponin is negative less than 0.012. Passages normal at 2.5 and EKG shows sinus bradycardia at 40 bpm 08/28/2023 Patient dizziness have resolved, no chest pain or dyspnea, no other complaints regarding this, heart rate improved 53-67 today. Clonidine remains on hold and patient was informed to try to avoid it and she agrees. Solutions Engineer recommended no pacemaker for now Echocardiogram showed ejection fraction of 55-60%. Patient also was severe low back pain, CT of the thoracolumbar spine showing moderate stenosis of L4-L5, currently remains on lidocaine patch, [place] 1 is added as well as Flexeril when necessary. Also she reports increased frequency of urination, urine analysis suspicious of UTI. Levaquin was started. Follow-up urine culture. And check a bladder scan. She says that she is able to walk using a cane. We will ask for PT/OT evaluation patient was complaining of from insomnia and acquired about her Ambien 10 mg taken every night, she is very adamant to take her Ambien although risks including but not limited to risk of falling are explained for her. Patient states she has been taking for 3 years with no problems and she wants it back so it was started upon her wishes Review of systems CONSTITUTIONAL: No fever, no malaise, no fatigue. HEENT: No recent visual problems or hearing problems. Denied any sore throat. CARDIOVASCULAR: No orthopnea, PND, no palpitations, no syncope. PULMONARY: No shortness of breath, no cough, no hemoptysis. GASTROINTESTINAL: No diarrhea, no nausea, no vomiting, no abdominal pain. Normoactive bowel sounds. NEUROLOGICAL: No headaches, no weakness, no numbness. Active Medications Generic Name Dose Route Start Last Admin Trade Name Freq PRN Reason Stop Dose Admin Acetaminophen/Codeine Phosphate 1 each 08/27/23 08:56 Acetaminophen-Codeine 300-30mg Tab PO Q6HR PRN Pain Cyclobenzaprine HCl 5 mg 08/28/23 07:23 Cyclobenzaprine 5 Mg Tab PO TID PRN Muscle Spasm Famotidine 20 mg 08/27/23 10:00 08/27/23 20:24 Famotidine 20 Mg/2 Ml Vial IV Not Given Q12HR [facility] Heparin Sodium (Porcine) 5,000 unit 08/27/23 10:00 08/27/23 20:24 Heparin Sodium,Porcine 5,000 Unit/Ml 1 Ml Vial SQ Not Given Q12HR [facility] Sodium Chloride 1,000 mls @ 75 mls/hr 08/27/23 09:00 08/27/23 20:24 Saline 0.9% IV 08/29/23 09:01 Not Given .[id number] [facility] Levofloxacin 500 mg/ IV 100 mls @ 100 mls/hr 08/28/23 08:00 Solution IVPB Q24H [facility] Protocol Ketorolac Tromethamine 15 mg 08/27/23 12:00 08/28/23 04:14 Ketorolac 15 Mg/Ml 1 Ml Vial IVP 09/01/23 08:54 Not Given Q6HR [facility] Lidocaine 1 patch 08/27/23 09:00 08/27/23 10:19 Lidocaine 4% Patch TOPICAL 1 patch DAILY [facility] Administration Protocol Melatonin 3 mg 08/27/23 21:00 08/27/23 20:24 Melatonin 3 Mg Tablet PO Not Given HS BARRY Naloxone HCl 0.2 mg 08/26/23 20:49 Naloxone 0.4 Mg/Ml 1 Ml Vial IV Q2M PRN Opioid Reversal Nicotine 1 patch 08/27/23 09:00 08/27/23 10:19 Nicotine 21mg/24hr Patch TRANSDERM 1 patch DAILY BARRY Administration Zolpidem Tartrate 10 mg 08/28/23 07:20 Zolpidem 5 Mg Tab PO 08/29/23 23:00 HS PRN Insomnia Objective - Vital Signs Vital signs: Vital Signs Temp 98.3 F 08/27/23 17:17 Pulse 67 08/27/23 17:17 Resp 20 08/27/23 17:17 BP 113/71 08/27/23 17:17 Pulse Ox 95 08/27/23 17:17 FiO2 Intake & Output 08/27/23 08/28/23 08/28/23 18:59 06:59 18:59 Intake Total 358 240 Output Total 600 Balance -242 240 Intake: Oral 358 240 Output: Urine 600 Other: Voiding Method Toilet # Voids 2 1 - Exam GENERAL: The patient is alert and oriented x3, not in any acute distress. Well developed, well nourished. HEENT: Pupils are round and equally reacting to light. EOMI. No scleral icterus. No conjunctival pallor. Normocephalic, atraumatic. No pharyngeal erythema. No thyromegaly. CARDIOVASCULAR: S1 and S2 present. No murmurs, rubs, or gallops. PULMONARY: Chest is clear to auscultation, no wheezing , no crackles. ABDOMEN: Soft, nontender, nondistended, normoactive bowel sounds. No palpable organomegaly. -MUSCULOSKELETAL: No joint swelling or deformity. No back tenderness EXTREMITIES: No cyanosis, clubbing, or pedal edema. NEUROLOGICAL: Gross neurological examination did not reveal any focal deficits. SKIN: No rashes. no petechiae. - Labs CBC & Chem 7: 08/27/23 07:20 08/27/23 07:20 Labs: Abnormal Lab Results - Last 24 Hours (Table) 08/27/23 08/27/23 08/27/23 Range/Units 07:20 11:10 17:22 D-Dimer 0.68 H (<0.60) mg/L FEU Potassium 5.3 H (3.5-5.1) mmol/L Chloride 111 H (98-107) mmol/L Carbon Dioxide 18 L (22-30) mmol/L AST 46 H (14-36) U/L Urine Appearance Cloudy H (Clear) Urine Ketones Trace H (Negative) Urine Blood Trace H (Negative) Urine Nitrite Positive H (Negative) Ur Leukocyte Esterase Large H (Negative) Urine WBC 122 H (0-5) /hpf Urine Bacteria Rare H (None) /hpf Hyaline Casts 3 H (0-2) /lpf Urine Mucus Moderate H (None) /hpf Urine Opiates Screen Detected H (NotDetected) U Marijuana (THC) Screen Detected H (NotDetected) Assessment and Plan Assessment: Multiple syncopal episodes secondary to sinus bradycardia while she was taking clonidine which is stopped now. Severe low back pain with tenderness with no trauma with radiculopathy as tingling on the right lower extremity. Moderate L4-L5 stenosis Acute renal tract infection Insomnia Anxiety nicotine dependence History of bipolar disorder History of cocaine abuse Plan: Continue with telemetry monitoring DC clonidine, patient informed and she agreed Cardiology consult Discontinue IV fluids Ambien for insomnia Start Levaquin and follow-up urine culture And lidocaine patch and Toradol when necessary and orthopedic team consult for her lower back pain nicotine patch orthopedic team following closely Labs and medication were reviewed.. Continue same treatment. Continue with symptomatic treatment. Resume home medication. Monitor labs and vitals. DVT and GI prophylaxis. Further recommendations as per clinical course of the patient DVT prophylaxis: Subcutaneous heparin GI Prophylaxis: Pepcid PT/OT: Pending Prognosis is guarded
[2023-08-28] MEDS: LIDOCAINE 4% PATCH TOPICAL SCH (09:05)
[2023-08-28] MEDS: NICOTINE 21MG/24HR PATCH TRANSDERM SCH (09:05)
[2023-08-28] MEDS: FAMOTIDINE 20 MG/2 ML VIAL IV SCH ×2 (09:06→19:57)
[2023-08-28] MEDS: HEPARIN SODIUM,PORCINE 5,000 UNIT/ML 1 ML VIAL SQ SCH ×2 (09:06→19:57)
[2023-08-28] MEDS: LEVOFLOXACIN 500MG-D5W PMX 500 MG in DEXTROSE/WATER 1 100ML.BAG IVPB SCH (09:06)
--- NOTE | 2023-08-28 10:15 | P.CNOR ---
History of Present Illness - [facility] Consult date: 08/27/23 Consult reason: low back pain History of present illness: Patient is a 63-year-old female who is admitted to [facility] with current medications. Patient is also had increase in her low back pain. Orthopedic team was consulted for this. Patient is currently being followed by other medical claims processor. Patient was evaluated today on the cardiac unit, she is resting in her hospital bed. Patient appears quite agitated while lying in bed. Patient states that she's had back pain for quite a while, but she feels over the last month it is gotten worse, in the last week it is gotten significantly worse. Patient has been evaluated by a pain management doctor in the area, she actually received an epidural injection about 6 weeks ago which she states only helped for about a week. Patient denies any previous orthopedic surgery to her lumbar spine. She denies any orthopedic surgery to bilateral upper or lower extremities. Patient notes most of the pain across her lower back and into her SI joints. She has had some pain along with numbness and tingling that radiates down the back of her right leg. Patient is occasionally noticing symptoms on the left but seems more consistent on the right. Patient denies any obvious loss of bowel or bladder control. She states that she normally has a bowel movement once or twice a week. She states she feels has been urinating excessively over the last week. She denies any numbness or tingling to the genital perineal region. Patient normally utilizes no assistive devices with ambulation. Review of Systems Constitutional: Reports as per [facility] Past Medical History Past Medical History: Hyperlipidemia, Hypertension Additional Past Medical History / Comment(s): occ migraines, hemorrhoids, degenerative disks L4 and L5 History of Any Multi-Drug Resistant Organisms: None Reported Past Surgical History: Appendectomy, Section, Orthopedic Surgery Additional Past Surgical History / Comment(s): LEFT ARM (POST TRAUMATIC INJURY) reattached, RIGHT FOOT X3, LEFT KNEE ARTHROSCOPY, left oophorectomy, hemorroidectomy Past Anesthesia/Blood Transfusion Reactions: No Reported Reaction Past Psychological History: Anxiety, Bipolar, Depression, Panic Disorder Smoking Status: Current every day smoker, Vaper Past Alcohol Use History: None Reported Past Drug Use History: None Reported - Past Family History Mother Family Medical History: No Reported History Medications and Allergies Home Medications Medication Instructions Recorded Confirmed Type Benztropine Mesylate [Cogentin] 0.5 mg PO BID 08/26/23 08/26/23 History Ibuprofen [Motrin Ib] 400 mg PO DAILY 08/26/23 08/26/23 History Olanzapine/Samidorphan Malate 1 tab PO HS 08/26/23 08/26/23 History [Lybalvi 10-10 mg Tablet] Zolpidem [Ambien] 10 mg PO HS 08/26/23 08/26/23 History cloNIDine HCL [Catapres] 0.2 mg PO HS 08/26/23 08/26/23 History Allergies Allergy/AdvReac Type Severity Reaction Status Date / Time Penicillins Allergy Unknown Rash/Hives/Itching Verified 08/26/23 20:22 all over body Physical Examination Gen: AOx3, NAD VSS stable at this time Integument: There are no obvious open lesions throughout the lower thoracic and lumbar spine, no areas of erythema or soft tissue swelling Palpation: Patient has generalized tenderness in the paraspinal region in the lower lumbar spine, she also has discomfort in the bilateral SI joints with palpation ROM: Full range of motion in all major muscle groups to bilateral upper and lower extremities, no focal deficits appreciated Sensory Exam: Senory exam to light touch is intact C5-T1 Senosry exam to light touch is intact L2-S1 Motor: 5/5 strength appreciated in the bilateral upper extremities with shoulder elevation, shoulder abduction, elbow extension, elbow flexion, wrist extension, wrist flexion, rehabilitation services counselor 4+/5 strength in the bilateral lower extremities with hip flexion, knee extension, knee flexion 4+/5 strength appreciated with plantarflexion and dorsiflexion, EHL, FHL lower extremity 4/5 strength appreciated with plantarflexion, dorsiflexion, EHL, FHL right lower extremity Reflexes: 2/4 in all UE and LE Negative Sami's bilaterally Negative Babinski bilaterally Clonus bilaterally Special Test: Positive straight leg raise right side Negative straight leg raise left Results - Labs Labs: Abnormal Lab Results - Last 24 Hours (Table) 08/27/23 08/27/23 Range/Units 11:10 17:22 D-Dimer 0.68 H (<0.60) mg/L FEU Urine Appearance Cloudy H (Clear) Urine Ketones Trace H (Negative) Urine Blood Trace H (Negative) Urine Nitrite Positive H (Negative) Ur Leukocyte Esterase Large H (Negative) Urine WBC 122 H (0-5) /hpf Urine Bacteria Rare H (None) /hpf Hyaline Casts 3 H (0-2) /lpf Urine Mucus Moderate H (None) /hpf Urine Opiates Screen Detected H (NotDetected) U Marijuana (THC) Screen Detected H (NotDetected) H & H 08/26/23 08/27/23 Range/Units 19:26 07:20 Hgb 13.9 13.4 (11.4-16.0) gm/dL Hct 40.7 39.4 (34.0-46.0) % Coagulation 08/26/23 Range/Units 19:26 INR 1.0 (<1.2) Result Diagrams: 08/27/23 07:20 08/27/23 07:20 Assessment and Plan Assessment: Low-back pain Right-sided lumbar radiculopathy Other medical comorbidities Plan: I was able to discuss the case, this including physical physical exam findings and imaging studies my attending Dr. Yeager. Computed tomography scan of the lumbar spine will be ordered for further evaluation Pain control, one-time dose of 10 mg of Flexeril. Would recommend Tylenol and NSAIDs Weight-bear as tolerated, excess lifting, twisting, bending DVT prophylaxis per primary medical service Recommendations to follow after review of computed tomography scan Time with Patient: Less than 30
--- NOTE | 2023-08-28 11:19 | P.PN ---
Subjective Progress Note Date: 08/28/23 Principal diagnosis: Low back pain, lumbar spondylosis Patient was evaluated today at bedside, she is resting in her hospital bed. Patient seems a lot more comfortable today. She did receive the 1 dose of Flexeril yesterday, internal medicine also did start her on low-dose [place]. Patient continues to have no obvious neuropathic signs. Objective - Vital Signs Vital signs: Vital Signs Temp 97.5 F L 08/28/23 07:40 Pulse 44 L 08/28/23 07:40 Resp 14 08/28/23 07:40 BP 169/91 08/28/23 07:40 Pulse Ox 98 08/28/23 07:40 FiO2 Intake & Output 08/27/23 08/28/23 08/28/23 18:59 06:59 18:59 Intake Total 358 240 128 Output Total 600 700 Balance -242 240 -572 Intake: IV 10 Invasive Line 1 10 Oral 358 240 118 Output: Urine 600 350 Post Void Residual 350 Other: Voiding Method Toilet Toilet # Voids 2 1 - Exam Gen: AOx3, NAD VSS stable at this time Integument: There are no obvious open lesions throughout the lower thoracic and lumbar spine, no areas of erythema or soft tissue swelling Palpation: Patient has generalized tenderness in the paraspinal region in the lower lumbar spine, she also has discomfort in the bilateral SI joints with palpation ROM: Full range of motion in all major muscle groups to bilateral upper and lower extremities, no focal deficits appreciated Sensory Exam: Senory exam to light touch is intact C5-T1 Senosry exam to light touch is intact L2-S1 Motor: 5/5 strength appreciated in the bilateral upper extremities with shoulder elevation, shoulder abduction, elbow extension, elbow flexion, wrist extension, wrist flexion, jacquard card cutter 4+/5 strength in the bilateral lower extremities with hip flexion, knee extension, knee flexion 4+/5 strength appreciated with plantarflexion and dorsiflexion, EHL, FHL lower extremity 4/5 strength appreciated with plantarflexion, dorsiflexion, EHL, FHL right lower extremity Reflexes: 2/4 in all UE and LE Negative Sami's bilaterally Negative Babinski bilaterally Clonus bilaterally Special Test: Negative straight leg raise bilaterally - Labs CBC & Chem 7: 08/27/23 07:20 08/27/23 07:20 Labs: Abnormal Lab Results - Last 24 Hours (Table) 08/27/23 08/27/23 Range/Units 11:10 17:22 D-Dimer 0.68 H (<0.60) mg/L FEU Urine Appearance Cloudy H (Clear) Urine Ketones Trace H (Negative) Urine Blood Trace H (Negative) Urine Nitrite Positive H (Negative) Ur Leukocyte Esterase Large H (Negative) Urine WBC 122 H (0-5) /hpf Urine Bacteria Rare H (None) /hpf Hyaline Casts 3 H (0-2) /lpf Urine Mucus Moderate H (None) /hpf Urine Opiates Screen Detected H (NotDetected) U Marijuana (THC) Screen Detected H (NotDetected) Assessment and Plan Assessment: Low-back pain Right-sided lumbar radiculopathy L4-L5, L5-L1 lumbar spondylosis with mild/moderate central canal stenosis and neural foraminal stenosis Other medical comorbidities Plan: After review of the computed tomography scan, there are spondylitic changes along with varying degrees of some neural foraminal and central canal stenosis in the lower lumbar spine. We discussed the possibility of seeing a different pain management doctor to consider options for treatment. I also advised patient follow-up in the outpatient setting with our orthopedic spine team to review the computed tomography scan and further detail and also po ssibly consider further imaging studies depending on symptoms. Pain control, we'll send patient home with Flexeril 10 mg, I advised using this on an as-needed basis that we would not provide this medication chronically. Activity level instructions, didn't advised patient to avoid excessive lifting, bending and twisting Orthopedic patient is stable for follow-up in the outpatient setting Time with Patient: Less than 30
[2023-08-28] MEDS: SODIUM CHLORIDE 0.9% 1,000 ML IV SCH (12:14)
--- NOTE | 2023-08-28 12:28 | P.PN ---
Subjective Progress Note Date: 08/28/23 Consult reason: sycope, shortness of breath, hypotension, other (bradycardia) History of present illness: Lee is a pleasant 63-year-old female with significant past medical history of bipolar disorder, chronic back pain who presented with complaints of syncope. 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 She reports that she has had multiple near syncopal episodes and one episode of actually losing consciousness. She reports that she will feel her knees but: Ventral fall to the floor and feel lightheaded. She was hypotensive upon arrival to the ER 71/47. She was also b radycardic with her heart rates in the 40s. She reports that she has been feeling more fatigued, short of breath, and difficulty swallowing for the past couple weeks. She does suffer from chronic back pain. Previously she had been eating okay however for the last 4 days she has not had much of an appetite and therefore is not eating or drinking well. She does report having urinary frequency, denies any dysuria. Troponin were negative 3, BNP 297, TSH was normal. She denies any chest pain or pressure. Denies any nausea, vomiting, diarrhea. She does report feeling very anxious today with some shortness of breath. She did have a prior heart catheterization October 2019 that revealed normal coronary arteries. Prior echo 10/2019 with EF 6065%. 08/28 patient states that she is still feeling dizzy when she initially gets up but does not feel like she is going to pass out. She states she does not have much appetite. She is complaining of difficulty swallowing to be addressed by at tending. Patient has been maintained off Catapres. Echocardiogram reveals EF of 55-60%, mild mitral regurgitation, mild tricuspid regurgitation, RVSP 29. Blood pressure 169/91, HR 42, pulse ox 98% on room air, afebrile. D-dimer was 0.68. urinalysis positive for urinary tract infection and attending a started the patient on Levaquin. Urine drug screen was positive for opiates and marijuana. PHYSICAL EXAMINATION: This is a 63-year-old female, appears older than stated age, in no apparent distress at the time of my examination. HEENT: Head is atraumatic, normocephalic. Pupils are equal, round. Sclerae anicteric. Conjunctivae are clear. Mucous membranes of the mouth are moist. Neck is supple. There is no jugular venous distention. No carotid bruit is heard. CHEST EXAMINATION: Lungs are clear to auscultation. No chest wall tenderness is noted on palpation or with deep breathing. HEART EXAMINATION: Bradycardia. S1, S2 heard. No murmurs, gallops or rub. ABDOMEN: Soft, nontender. Bowel sounds are heard. EXTREMITIES: 2+ peripheral pulses with no evidence of peripheral edema and no calf tenderness noted. NEUROLOGIC EXAMINATION: Patient is awake, alert and oriented x3. IMPRESSION AND PLAN: 1. Hypotension 2. Syncope 3. Bradycardia 4. Bipolar 5. Chronic back pain 6. Urinary frequency 7. UTI PLAN: Recommend trying alternaitve to clonidine for sleep given hypotension. Continue to monitor on telemetry, no indication for a pacemaker at this time. Patient is cleared for discharge from cardiology. Cardiology will sign off this case and follow on an as-needed basis. Please reconsult for any new concerns. Patient may follow-up in the office in 2 weeks. Nurse practitioner note has been reviewed, I agree with the documented findings and plan of care. Patient was seen and examined. Objective - Vital Signs Vital signs: Vital Signs Temp 97.5 F L 08/28/23 07:40 Pulse 44 L 08/28/23 07:40 Resp 14 08/28/23 07:40 BP 169/91 08/28/23 07:40 Pulse Ox 98 08/28/23 07:40 FiO2 Intake & Output 08/27/23 08/28/23 08/28/23 18:59 06:59 18:59 Intake Total 358 240 128 Output Total 600 700 Balance -242 240 -572 Intake: IV 10 Invasive Line 1 10 Oral 358 240 118 Output: Urine 600 350 Post Void Residual 350 Other: Voiding Method Toilet Toilet # Voids 2 1 - Labs CBC & Chem 7: 08/27/23 07:20 08/27/23 07:20 Labs: Abnormal Lab Results - Last 24 Hours (Table) 08/27/23 08/27/23 Range/Units 11:10 17:22 D-Dimer 0.68 H (<0.60) mg/L FEU Urine Appearance Cloudy H (Clear) Urine Ketones Trace H (Negative) Urine Blood Trace H (Negative) Urine Nitrite Positive H (Negative) Ur Leukocyte Esterase Large H (Negative) Urine WBC 122 H (0-5) /hpf Urine Bacteria Rare H (None) /hpf Hyaline Casts 3 H (0-2) /lpf Urine Mucus Moderate H (None) /hpf Urine Opiates Screen Detected H (NotDetected) U Marijuana (THC) Screen Detected H (NotDetected)
[2023-08-28] MEDS ORDERED: FUROSEMIDE 40 MG TAB PO STA (17:28)
[2023-08-28] MEDS: amLODIPine 5 MG TAB PO SCH (18:15)
[2023-08-28] MEDS: ZOLPIDEM 5 MG TAB PO PRN (19:56)
[2023-08-28] MEDS: MELATONIN 3 MG TABLET PO SCH (19:56)
[2023-08-29] MEDS: KETOROLAC 15 MG/ML 1 ML VIAL IVP SCH ×4 (00:48→18:07)
[2023-08-29] MEDS: SODIUM CHLORIDE 0.9% 1,000 ML IV SCH (02:04)
[2023-08-29 04:08] LABS: Glucose,Whole Blood 141 mg/dL (70-110)
[2023-08-29] MEDS: LIDOCAINE 4% PATCH TOPICAL SCH (09:06)
[2023-08-29] MEDS: amLODIPine 5 MG TAB PO SCH (09:07)
[2023-08-29] MEDS: FAMOTIDINE 20 MG/2 ML VIAL IV SCH ×2 (09:07→20:22)
[2023-08-29] MEDS: LEVOFLOXACIN 500MG-D5W PMX 500 MG in DEXTROSE/WATER 1 100ML.BAG IVPB SCH (09:07)
[2023-08-29] MEDS: NICOTINE 21MG/24HR PATCH TRANSDERM SCH (09:07)
[2023-08-29] MEDS: HEPARIN SODIUM,PORCINE 5,000 UNIT/ML 1 ML VIAL SQ SCH ×2 (09:07→20:22)
--- NOTE | 2023-08-29 11:57 | P.PN ---
Subjective Progress Note Date: 08/29/23 This is a 63-year-old female admitted with syncope, bradycardia, hypotension and multiple other medical issues. Evaluated by cardiology, clonidine discontinued. Earlier this morning staff reported patient dizzy, hypotensive with blood pressure in the 70s with heart rates decreased to high 30s and slid down to the floor from sitting up at the bedside. Denies chest pain, palpitations or shortness of breath. Denies headache, dizziness currently. No pacemaker recommended per previous cardiology evaluation. Evaluated by orthopedics with recommendations noted. Maintained on Levaquin for UTI. Afebrile. Objective - Vital Signs Vital signs: Vital Signs Temp 97.4 F L 08/29/23 08:00 Pulse 38 L 08/29/23 08:00 Resp 16 08/29/23 08:00 BP 160/83 08/29/23 08:00 Pulse Ox 95 08/29/23 08:00 FiO2 Intake & Output 08/28/23 08/29/23 08/29/23 18:59 06:59 18:59 Intake Total 246 0 Output Total 700 300 Balance -454 -300 0 Intake: IV 10 Invasive Line 1 10 Oral 236 0 Output: Urine 350 300 Post Void Residual 350 Other: Voiding Method Toilet Toilet # Voids 2 - Exam PHYSICAL EXAM: VITAL SIGNS: [As above] GENERAL: Sitting up in bed, no acute distress HEENT: Normocephalic ,Conjunctivae normal. eyes normal. NECK: Supple, No JVD. CARDIOVASCULAR: S1, S2 regular.No murmur RESPIRATION: Unlabored, equal air entry, CTA. ABDOMEN: Soft, nondistended, nontender, no guarding, positive BS. LEGS: No edema. no swelling PSYCHIATRY: Alert and oriented X3, mood and affect normal. NERVOUS SYSTEM: Cranial N 2-12 grossly normal. No focal deficits. Strength and sensation grossly intact.. Skin: Warm and dry, no rash - Labs CBC & Chem 7: 08/27/23 07:20 08/27/23 07:20 Labs: Abnormal Lab Results - Last 24 Hours (Table) 08/29/23 Range/Units 03:47 POC Glucose (mg/dL) 141 H (70-110) mg/dL Assessment and Plan Assessment: Syncope secondary to Bradycardia, sick sinus syndrome, symptomatic, clonidine discontinued. Hypotension Bipolar Insomnia Anxiety Chronic back pain, Right-sided lumbar radiculopathy,L4-L5, L5-L1 lumbar spondylosis with mild/moderate central canal stenosis and neural foraminal stenosis UTI, on Levaquin History of cocaine abuse Plan: Continue on current medication regime, monitoring and symptomatically treatment. Discharge planning on hold, PT evaluation ordered. Patient does have a walker. Further evaluation/recommendations as per cardiology. The impression and plan of care has been dictated as directed. : I performed a history and examination of this patient, discussed the same with the dictator. I agree with the dictator's note ,documented as a scribe. Any additional findings or plans will be noted.
--- NOTE | 2023-08-29 12:05 | P.PN ---
Subjective Progress Note Date: 08/29/23 Consult reason: sycope, shortness of breath, hypotension, other (bradycardia) History of present illness: Lee is a pleasant 63-year-old female with significant past medical history of bipolar disorder, chronic back pain who presented with complaints of syncope. 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 She reports that she has had multiple near syncopal episodes and one episode of actually losing consciousness. She reports that she will feel her knees but: Ventral fall to the floor and feel lightheaded. She was hypotensive upon arrival to the ER 71/47. She was also b radycardic with her heart rates in the 40s. She reports that she has been feeling more fatigued, short of breath, and difficulty swallowing for the past couple weeks. She does suffer from chronic back pain. Previously she had been eating okay however for the last 4 days she has not had much of an appetite and therefore is not eating or drinking well. She does report having urinary frequency, denies any dysuria. Troponin were negative 3, BNP 297, TSH was normal. She denies any chest pain or pressure. Denies any nausea, vomiting, diarrhea. She does report feeling very anxious today with some shortness of breath. She did have a prior heart catheterization October 2019 that revealed normal coronary arteries. Prior echo 10/2019 with EF 6065%. 08/28 patient states that she is still feeling dizzy when she initially gets up but does not feel like she is going to pass out. She states she does not have much appetite. She is complaining of difficulty swallowing to be addressed by at tending. Patient has been maintained off Catapres. Echocardiogram reveals EF of 55-60%, mild mitral regurgitation, mild tricuspid regurgitation, RVSP 29. Blood pressure 169/91, HR 42, pulse ox 98% on room air, afebrile. D-dimer was 0.68. urinalysis positive for urinary tract infection and attending a started the patient on Levaquin. Urine drug screen was positive for opiates and marijuana. 08/29 Patient episode this morning where she was getting from a sitting to standing position to go to the restroom and had a near syncopal episode. Her blood pressure was 70/30 and heart rate was reported at 38. Telemetry was reviewed and it does not appear to be any heart rate less than 43. Patient did not have a fall or injury. Patient received a fluid bolus and now blood pressure is 160/83. PHYSICAL EXAMINATION: This is a 63-year-old female, appears older than stated age, in no apparent distress at the time of my examination. HEENT: Head is atraumatic, normocephalic. Pupils are equal, round. Sclerae anicteric. Conjunctivae are clear. Mucous membranes of the mouth are moist. CHEST EXAMINATION: Lungs are clear to auscultation. No chest wall tenderness is noted on palpation or with deep breathing. HEART EXAMINATION: Bradycardia. S1, S2 heard. No murmurs, gallops or rub. ABDOMEN: Soft, nontender. Bowel sounds are heard. EXTREMITIES: 2+ peripheral pulses with no evidence of peripheral edema and no calf tenderness noted. NEUROLOGIC EXAMINATION: Patient is awake, alert and oriented x3. IMPRESSION AND PLAN: 1. Hypotension 2. Syncope 3. Bradycardia 4. Bipolar 5. Chronic back pain 6. Urinary frequency 7. UTI 8. Near syncopal episode most likely due to hypotension related to her bipolar medications PLAN: Recommend trying alternaitve to clonidine for sleep given hypotension. Near syncopal episode most likely due to hypotension related to bipolar medications. Patient did shows bradycardia on telemetry but not contributing to the syncopal or near syncopal episode. No indication for pacemaker at this time., no indication for a pacemaker at this time. Patient will follow-up with Dr. Merida in the office in 2 weeks following discharge. Nurse practitioner note has been reviewed, I agree with the documented findings and plan of care. Patient was seen and examined. Objective - Vital Signs Vital signs: Vital Signs Temp 97.4 F L 08/29/23 08:00 Pulse 38 L 08/29/23 08:00 Resp 16 08/29/23 08:00 BP 160/83 08/29/23 08:00 Pulse Ox 95 08/29/23 08:00 FiO2 Intake & Output 08/28/23 08/29/23 08/29/23 18:59 06:59 18:59 Intake Total 246 0 Output Total 700 300 Balance -454 -300 0 Intake: IV 10 Invasive Line 1 10 Oral 236 0 Output: Urine 350 300 Post Void Residual 350 Other: Voiding Method Toilet Toilet # Voids 2 - Labs CBC & Chem 7: 08/27/23 07:20 08/27/23 07:20 Labs: Abnormal Lab Results - Last 24 Hours (Table) 08/29/23 Range/Units 03:47 POC Glucose (mg/dL) 141 H (70-110) mg/dL
[2023-08-29] MEDS: MELATONIN 3 MG TABLET PO SCH (20:22)
[2023-08-29] MEDS: ZOLPIDEM 5 MG TAB PO PRN (20:37)
[2023-08-30] MEDS: KETOROLAC 15 MG/ML 1 ML VIAL IVP SCH ×5 (00:14→22:50)
[2023-08-30] MEDS: HEPARIN SODIUM,PORCINE 5,000 UNIT/ML 1 ML VIAL SQ SCH ×2 (08:55→20:08)
[2023-08-30] MEDS: FAMOTIDINE 20 MG/2 ML VIAL IV SCH ×2 (08:55→20:08)
[2023-08-30] MEDS: LIDOCAINE 4% PATCH TOPICAL SCH (08:56)
[2023-08-30] MEDS: LEVOFLOXACIN 500MG-D5W PMX 500 MG in DEXTROSE/WATER 1 100ML.BAG IVPB SCH (08:56)
[2023-08-30] MEDS: NICOTINE 21MG/24HR PATCH TRANSDERM SCH (08:56)
[2023-08-30] MEDS: THEOPHYLLINE 24 HOUR 200 MG CAP.ER.24H PO SCH (09:36)
--- NOTE | 2023-08-30 10:35 | P.PN ---
Subjective Progress Note Date: 08/30/23 Consult reason: sycope, shortness of breath, hypotension, other (bradycardia) History of present illness: Lee is a pleasant 63-year-old female with significant past medical history of bipolar disorder, chronic back pain who presented with complaints of syncope. 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 She reports that she has had multiple near syncopal episodes and one episode of actually losing consciousness. She reports that she will feel her knees but: Ventral fall to the floor and feel lightheaded. She was hypotensive upon arrival to the ER 71/47. She was also b radycardic with her heart rates in the 40s. She reports that she has been feeling more fatigued, short of breath, and difficulty swallowing for the past couple weeks. She does suffer from chronic back pain. Previously she had been eating okay however for the last 4 days she has not had much of an appetite and therefore is not eating or drinking well. She does report having urinary frequency, denies any dysuria. Troponin were negative 3, BNP 297, TSH was normal. She denies any chest pain or pressure. Denies any nausea, vomiting, diarrhea. She does report feeling very anxious today with some shortness of breath. She did have a prior heart catheterization October 2019 that revealed normal coronary arteries. Prior echo 10/2019 with EF 6065%. 08/28 patient states that she is still feeling dizzy when she initially gets up but does not feel like she is going to pass out. She states she does not have much appetite. She is complaining of difficulty swallowing to be addressed by at tending. Patient has been maintained off Catapres. Echocardiogram reveals EF of 55-60%, mild mitral regurgitation, mild tricuspid regurgitation, RVSP 29. Blood pressure 169/91, HR 42, pulse ox 98% on room air, afebrile. D-dimer was 0.68. urinalysis positive for urinary tract infection and attending a started the patient on Levaquin. Urine drug screen was positive for opiates and marijuana. 08/29 Patient episode this morning where she was getting from a sitting to standing position to go to the restroom and had a near syncopal episode. Her blood pressure was 70/30 and heart rate was reported at 38. Telemetry was reviewed and it does not appear to be any heart rate less than 43. Patient did not have a fall or injury. Patient received a fluid bolus and now blood pressure is 160/83. 08/30 Patient remains in a sinus bradycardia, reviewed telemetry and could not find anything below 40 bpm. Blood pressure is 158/85. PHYSICAL EXAMINATION: This is a 63-year-old female, appears older than stated age, in no apparent distress at the time of my examination. HEENT: Head is atraumatic, normocephalic. Pupils are equal, round. Sclerae anicteric. Conjunctivae are clear. Mucous membranes of the mouth are moist. CHEST EXAMINATION: Lungs are clear to auscultation. No chest wall tenderness is noted on palpation or with deep breathing. HEART EXAMINATION: Bradycardia. S1, S2 heard. No murmurs, gallops or rub. ABDOMEN: Soft, nontender. Bowel sounds are heard. EXTREMITIES: 2+ peripheral pulses with no evidence of peripheral edema and no calf tenderness noted. NEUROLOGIC EXAMINATION: Patient is awake, alert and oriented x3. IMPRESSION AND PLAN: 1. Hypotension 2. Syncope 3. Bradycardia 4. Bipolar 5. Chronic back pain 6. Urinary frequency 7. UTI 8. Near syncopal episode most likely due to hypotension related to her bipolar medications PLAN: Recommend trying alternaitve to clonidine for sleep given hypotension. Near syncopal episode most likely due to hypotension related to bipolar medications. Patient did shows bradycardia on telemetry but not contributing to the syncopal or near syncopal episode. No indication for pacemaker at this time. Start patient on theophylline 24 hour 200 mg daily Patient will follow-up with Dr. Merida in the office in 2 weeks following cheryl giraldo. Patient is cleared for discharge from cardiology. Nurse practitioner note has been reviewed, I agree with the documented findings and plan of care. Patient was seen and examined. Objective - Vital Signs Vital signs: Vital Signs Temp 97.7 F 08/30/23 04:00 Pulse 46 L 08/30/23 04:00 Resp 18 08/30/23 04:00 BP 143/79 08/30/23 04:00 Pulse Ox 98 08/30/23 04:00 FiO2 Intake & Output 08/29/23 08/30/23 08/30/23 18:59 06:59 18:59 Intake Total 400 Balance 400 Intake: IV 100 Levofloxacin 500Mg-D5w 100 Pmx 500 mg In Dextrose/ Water 1 100ml.bag @ 100 mls/hr IVPB Q24H [facility] Rx#: [id number] Oral 300 Other: Voiding Method Toilet Bedpan # Voids 1 2 - Labs CBC & Chem 7: 08/27/23 07:20 08/27/23 07:20 Labs: Microbiology - Last 24 Hours (Table) 08/28/23 08:30 Urine Culture - Preliminary Urine,Clean Catch Gram Neg Bacilli
--- NOTE | 2023-08-30 11:55 | P.PN ---
Subjective Progress Note Date: 08/30/23 08/29/2023 This is a 63-year-old female admitted with syncope, bradycardia, hypotension and multiple other medical issues. Evaluated by cardiology, clonidine discontinued. Earlier this morning staff reported patient dizzy, hypotensive with blood pressure in the 70s with heart rates decreased to high 30s and slid down to the floor from sitting up at the bedside. Denies chest pain, palpitations or shortness of breath. Denies headache, dizziness currently. No pacemaker recommended per previous cardiology evaluation. Evaluated by orthopedics with recommendations noted. Maintained on Levaquin for UTI. Afebrile. 08/30/23 Patient became significantly hypotensive-symptomatic again this morning after ambulating with physical therapy. After returning from bathroom, patient complaining of dizziness, lightheadedness, near syncope. Blood pressure 60/34. Norvasc discontinued, Discharge cancelled. Objective - Vital Signs Vital signs: Vital Signs Temp 97.7 F 08/30/23 08:00 Pulse 41 L 08/30/23 08:00 Resp 18 08/30/23 08:00 BP 158/85 08/30/23 08:00 Pulse Ox 96 08/30/23 08:00 FiO2 Intake & Output 08/29/23 08/30/23 08/30/23 18:59 06:59 18:59 Intake Total 400 220 Balance 400 220 Intake: IV 100 100 Levofloxacin 500Mg-D5w 100 100 Pmx 500 mg In Dextrose/ Water 1 100ml.bag @ 100 mls/hr IVPB Q24H [facility] Rx#: [id number] Oral 300 120 Other: Voiding Method Toilet Bedpan # Voids 1 2 - Exam PHYSICAL EXAM: VITAL SIGNS: [As above] GENERAL: Alert and oriented 3, Sitting up in bed, no acute distress HEENT: Normocephalic ,Conjunctivae normal. eyes normal. NECK: Supple, No JVD. CARDIOVASCULAR: S1, S2 regular.No murmur RESPIRATION: Unlabored, equal air entry, CTA. ABDOMEN: Soft, nondistended, nontender, no guarding, positive BS. LEGS: No edema. no swelling NERVOUS SYSTEM: Cranial N 2-12 grossly normal. No focal deficits. Strength and sensation grossly intact. Skin: Warm and dry, no rash - Labs CBC & Chem 7: 08/27/23 07:20 08/27/23 07:20 Labs: Microbiology - Last 24 Hours (Table) 08/28/23 08:30 Urine Culture - Preliminary Urine,Clean Catch Gram Neg Bacilli Assessment and Plan Assessment: Syncope secondary to Bradycardia, sick sinus syndrome, symptomatic, clonidine discontinued. Hypotension Bipolar Insomnia Anxiety Chronic back pain, Right-sided lumbar radiculopathy,L4-L5, L5-L1 lumbar spondylosis with mild/moderate central canal stenosis and neural foraminal stenosis UTI, on Levaquin History of cocaine abuse Plan: Continue on current medication regime, monitoring and symptomatically treatment. Discharge placed on hold, secondary to significant symptomatic hypotension. Norvasc discontinued, low-dose Midodrin with parameters initiated. PT had recommended home with home care, subacute rehab, which patient had declined previously with case management. The impression and plan of care has been dictated as directed. : I performed a history and examination of this patient, discussed the same with the dictator. I agree with the dictator's note ,documented as a scribe. Any additional findings or plans will be noted.
[2023-08-30] MEDS ORDERED: MIDODRINE 5 MG TAB PO SCH (12:30)
[2023-08-30] MEDS: MIDODRINE 5 MG TAB PO SCH (17:47)
[2023-08-30] MEDS: MELATONIN 3 MG TABLET PO SCH (20:08)
[2023-08-30] MEDS: ZOLPIDEM 5 MG TAB PO PRN (20:08)
[2023-08-30] MEDS ORDERED: amLODIPine 5 MG TAB PO SCH (21:00)
[2023-08-31] MEDS: KETOROLAC 15 MG/ML 1 ML VIAL IVP SCH ×4 (06:31→23:02)
--- NOTE | 2023-08-31 08:07 | XR ---
EXAMINATION TYPE: XR lumbar spine with bend/flex DATE OF EXAM: 08/31/2023 CLINICAL HISTORY: pain COMPARISON: NONE TECHNIQUE: Frontal and lateral views of the lumbar spine including flexion and extension views are ob tained. FINDINGS: At neutral there is normal alignment. At flexion there is grade 1 anterolisthesis L4 and L5 of 2.1 mm which increases at extension to 3.5 mm. Severe facet joint arthropathy. Mild degenerative narrowing L4-5. IMPRESSION: As above
[2023-08-31] MEDS: LIDOCAINE 4% PATCH TOPICAL SCH (09:10)
[2023-08-31] MEDS: HEPARIN SODIUM,PORCINE 5,000 UNIT/ML 1 ML VIAL SQ SCH ×2 (09:10→20:16)
[2023-08-31] MEDS: NICOTINE 21MG/24HR PATCH TRANSDERM SCH (09:10)
[2023-08-31] MEDS: FAMOTIDINE 20 MG/2 ML VIAL IV SCH ×2 (09:10→20:15)
[2023-08-31] MEDS: MIDODRINE 5 MG TAB PO SCH ×4 (09:19→17:31)
[2023-08-31] MEDS: LEVOFLOXACIN 500MG-D5W PMX 500 MG in DEXTROSE/WATER 1 100ML.BAG IVPB SCH (10:01)
[2023-08-31] MEDS: THEOPHYLLINE 24 HOUR 200 MG CAP.ER.24H PO SCH (10:02)
--- NOTE | 2023-08-31 10:58 | P.PN ---
Subjective Progress Note Date: 08/31/23 Consult reason: sycope, shortness of breath, hypotension, other (bradycardia) History of present illness: Lee is a pleasant 63-year-old female with significant past medical history of bipolar disorder, chronic back pain who presented with complaints of syncope. She does not follow with insurance healthcare representative. She reports that she has had multiple near syncopal episodes and one episode of actually losing consciousness. She reports that she will feel her knees but: Ventral fall to the floor and feel lightheaded. She was hypotensive upon arrival to the ER 71/47. She was also b radycardic with her heart rates in the 40s. She reports that she has been feeling more fatigued, short of breath, and difficulty swallowing for the past couple weeks. She does suffer from chronic back pain. Previously she had been eating okay however for the last 4 days she has not had much of an appetite and therefore is not eating or drinking well. She does report having urinary frequency, denies any dysuria. Troponin were negative 3, BNP 297, TSH was normal. She denies any chest pain or pressure. Denies any nausea, vomiting, diarrhea. She does report feeling very anxious today with some shortness of breath. She did have a prior heart catheterization October 2019 that revealed normal coronary arteries. Prior echo 10/2019 with EF 6065%. 08/28 patient states that she is still feeling dizzy when she initially gets up but does not feel like she is going to pass out. She states she does not have much appetite. She is complaining of difficulty swallowing to be addressed by at tending. Patient has been maintained off Catapres. Echocardiogram reveals EF of 55-60%, mild mitral regurgitation, mild tricuspid regurgitation, RVSP 29. Blood pressure 169/91, HR 42, pulse ox 98% on room air, afebrile. D-dimer was 0.68. urinalysis positive for urinary tract infection and attending a started the patient on Levaquin. Urine drug screen was positive for opiates and marijuana. 08/29 Patient episode this morning where she was getting from a sitting to standing position to go to the restroom and had a near syncopal episode. Her blood pressure was 70/30 and heart rate was reported at 38. Telemetry was reviewed and it does not appear to be any heart rate less than 43. Patient did not have a fall or injury. Patient received a fluid bolus and now blood pressure is 160/83. 08/30 Patient remains in a sinus bradycardia, reviewed telemetry and could not find anything below 40 bpm. Blood pressure is 158/85. 08/31 Yesterday afternoon, patient was up with physical therapy and had a drop in her blood pressure to systolic of 60. Primary added and midodrine 5 mg twice daily. Patient again this morning had low blood pressure readings and seems to refused to stand maybe from fear of falling. Supine blood pressure 83/55 and sitting 70/30. PHYSICAL EXAMINATION: This is a 63-year-old female in no apparent distress at the time of my examination. CHEST EXAMINATION: Lungs are clear to auscultation. No chest wall tenderness is noted on palpation or with deep breathing. HEART EXAMINATION: Bradycardia. S1, S2 heard. No murmurs, gallops or rub. EXTREMITIES: 2+ peripheral pulses with no evidence of peripheral edema and no calf tenderness noted. NEUROLOGIC EXAMINATION: Patient is awake, alert and oriented x3. IMPRESSION AND PLAN: 1. Hypotension 2. Syncope 3. Bradycardia 4. Bipolar 5. Chronic back pain 6. Urinary frequency 7. UTI 8. Near syncopal episode most likely due to hypotension related to her bipolar medications PLAN: Recommend trying alternaitve to clonidine for sleep given hypotension. Near syncopal episode most likely due to hypotension related to bipolar medications. Patient did shows bradycardia on telemetry but not contributing to the syncopal or near syncopal episode. No indication for pacemaker at this time. Continue patient on theophylline 24 hour 200 mg daily Increase midodrine 7.5 mg 3 times daily Patient will follow-up with Dr. Merida in the office in 2 weeks following discharge. Patient is cleared for discharge from cardiology. Cardiology will sign off and follow on an as-needed basis. Nurse practitioner note has been reviewed, I agree with the documented findings and plan of care. Patient was seen and examined. Objective - Vital Signs Vital signs: Vital Signs Temp 97.9 F 08/31/23 04:00 Pulse 43 L 08/31/23 04:00 Resp 19 08/31/23 04:00 BP 189/107 08/31/23 04:00 Pulse Ox 97 08/31/23 04:00 FiO2 Intake & Output 08/30/23 08/31/23 08/31/23 18:59 06:59 18:59 Intake Total 580 Balance 580 Intake: IV 100 Levofloxacin 500Mg-D5w 100 Pmx 500 mg In Dextrose/ Water 1 100ml.bag @ 100 mls/hr IVPB Q24H [facility] Rx#: [id number] Oral 480 Other: Voiding Method Toilet Bedpan # Voids 1 2 - Labs CBC & Chem 7: 08/27/23 07:20 08/27/23 07:20 Labs: Microbiology - Last 24 Hours (Table) 08/28/23 08:30 Urine Culture - Final Urine,Clean Catch Escherichia coli
[2023-08-31] MEDS ORDERED: MIDODRINE 5 MG TAB PO SCH ×2 (12:30)
[2023-08-31 13:16] VITALS: BMI 23.6
--- NOTE | 2023-08-31 16:14 | P.PN ---
Subjective Progress Note Date: 08/31/23 08/29/2023 This is a 63-year-old female admitted with syncope, bradycardia, hypotension and multiple other medical issues. Evaluated by cardiology, clonidine discontinued. Earlier this morning staff reported patient dizzy, hypotensive with blood pressure in the 70s with heart rates decreased to high 30s and slid down to the floor from sitting up at the bedside. Denies chest pain, palpitations or shortness of breath. Denies headache, dizziness currently. No pacemaker recommended per previous cardiology evaluation. Evaluated by orthopedics with recommendations noted. Maintained on Levaquin for UTI. Afebrile. 08/30/23 Patient became significantly hypotensive-symptomatic again this morning after ambulating with physical therapy. After returning from bathroom, patient complaining of dizziness, lightheadedness, near syncope. Blood pressure 60/34. Norvasc discontinued, Discharge cancelled. 08/31/2023 patient unable to stand this morning afraid of falling, complaining of lightheadedness, dizziness. Denies chest pain, palpitations or shortness of breath. Blood pressure sitting 70/30 and supine 83/55. Midodrin increased per cardiology. Objective - Vital Signs Vital signs: Vital Signs Temp 98.2 F 08/31/23 08:00 Pulse 52 L 08/31/23 11:30 Resp 18 08/31/23 11:30 BP 146/80 08/31/23 11:30 Pulse Ox 99 08/31/23 11:30 FiO2 Intake & Output 08/30/23 08/31/23 08/31/23 18:59 06:59 18:59 Intake Total 580 340 Output Total 575 Balance 580 -235 Weight 56.699 kg Intake: IV 100 100 Levofloxacin 500Mg-D5w 100 100 Pmx 500 mg In Dextrose/ Water 1 100ml.bag @ 100 mls/hr IVPB Q24H [facility] Rx#: [id number] Oral 480 240 Output: Urine 575 Other: Voiding Method Toilet Bedpan # Voids 1 2 1 - Exam PHYSICAL EXAM: VITAL SIGNS: [As above] GENERAL: Alert and oriented 3, Sitting up in bed, no acute distress HEENT: Normocephalic ,Conjunctivae normal. eyes normal. NECK: Supple, No JVD. CARDIOVASCULAR: S1, S2 regular.No murmur RESPIRATION: Unlabored, equal air entry, CTA. ABDOMEN: Soft, nondistended, nontender, no guarding, positive BS. LEGS: No edema. no swelling NERVOUS SYSTEM: Cranial N 2-12 grossly normal. No focal deficits. Skin: Warm and dry, no rash - Labs CBC & Chem 7: 08/27/23 07:20 08/27/23 07:20 Labs: Microbiology - Last 24 Hours (Table) 08/28/23 08:30 Urine Culture - Final Urine,Clean Catch Escherichia coli Assessment and Plan Assessment: Syncope secondary to Bradycardia, sick sinus syndrome, symptomatic, clonidine d iscontinued. Hypotension Bipolar Insomnia Anxiety Chronic back pain, Right-sided lumbar radiculopathy,L4-L5, L5-L1 lumbar spondylosis with mild/moderate central canal stenosis and neural foraminal jaqui nosis UTI, on Levaquin History of cocaine abuse Plan: Continue on current medication regime, monitoring and symptomatically treatment. Midodrin increased per cardiology. Orthostatic vital signs every shift. Discharge planning in progress tentatively for tomorrow pending improvement. The impression and plan of care has been dictated as directed. : I performed a history and examination of this patient, discussed the same with the dictator. I agree with the dictator's note ,documented as a scribe. Any additional findings or plans will be noted.
[2023-08-31] MEDS: MELATONIN 3 MG TABLET PO SCH (20:16)
[2023-08-31] MEDS ORDERED: FLUDROCORTISONE 0.1 MG TAB PO STA (21:01)
[2023-08-31] MEDS: ZOLPIDEM 5 MG TAB PO PRN (23:00)
[2023-08-31 23:36] LABS: Basophils # (A) 0.1 k/uL (0-0.2); Basophils % (A) 1 %; Eosinophils # (A) 0.1 k/uL (0-0.7); Eosinophils % (A) 1 %; HCT 45.9 % (34.0-46.0); HGB 15.7 gm/dL (11.4-16.0); Lymphocytes # (A) 2.7 k/uL (1.0-4.8); Lymphocytes % (A) 25 %; MCH 31.4 pg (25.0-35.0); MCHC 34.2 g/dL (31.0-37.0); MCV 91.7 fL (80.0-100.0); Mean Platelet Volume 8.4; Monocytes # (A) 0.5 k/uL (0-1.0); Monocytes % (A) 5 %; Neutrophils # (A) 7.3 k/uL (1.3-7.7); Neutrophils % (A) 67 %; Platelet Count 314 k/uL (150-450); RBC 5.01 m/uL (3.80-5.40); RDW 12.6 % (11.5-15.5); WBC 10.8 k/uL (3.8-10.6)
[2023-08-31 23:46] LABS: African American GFR (CKD) 89 (>60 ml/min/1.73 sqM); Anion Gap 10 mmol/L; Blood Urea Nitrogen 17 mg/dL (7-17); Calcium 9.8 mg/dL (8.4-10.2); Carbon Dioxide 20 mmol/L (22-30); Chloride 104 mmol/L (98-107); Glucose 127 mg/dL (74-99); Magnesium 1.5 mg/dL (1.6-2.3); Non-African American GFR(CKD) 77 (>60 ml/min/1.73 sqM); Potassium 4.1 mmol/L (3.5-5.1); Sodium 134 mmol/L (137-145)
[2023-09-01] MEDS: KETOROLAC 15 MG/ML 1 ML VIAL IVP SCH (05:35)
[2023-09-01] MEDS: MIDODRINE 5 MG TAB PO SCH ×3 (06:56→17:56)
[2023-09-01] MEDS: LIDOCAINE 4% PATCH TOPICAL SCH (09:20)
[2023-09-01] MEDS: NICOTINE 21MG/24HR PATCH TRANSDERM SCH (09:20)
[2023-09-01] MEDS: THEOPHYLLINE 24 HOUR 200 MG CAP.ER.24H PO SCH (09:20)
[2023-09-01] MEDS: LEVOFLOXACIN 500MG-D5W PMX 500 MG in DEXTROSE/WATER 1 100ML.BAG IVPB SCH (09:20)
[2023-09-01] MEDS: HEPARIN SODIUM,PORCINE 5,000 UNIT/ML 1 ML VIAL SQ SCH ×2 (09:21→19:47)
[2023-09-01] MEDS: FAMOTIDINE 20 MG/2 ML VIAL IV SCH ×2 (09:21→19:47)
[2023-09-01] MEDS: MELATONIN 3 MG TABLET PO SCH (19:47)
[2023-09-01] MEDS: ZOLPIDEM 5 MG TAB PO PRN (19:48)
--- NOTE | 2023-09-01 22:09 | P.PN ---
Subjective Progress Note Date: 09/01/23 Her BP has been running in the 130-150s systolic since her fludrocortisone last night. She denies dizziness currently. Remains bradycardic ranging from 38-48. Objective - Vital Signs Vital signs: Vital Signs Temp 98.4 F 09/01/23 20:00 Pulse 49 L 09/01/23 20:00 Resp 18 09/01/23 20:00 BP 161/73 09/01/23 20:00 Pulse Ox 100 09/01/23 20:00 FiO2 Intake & Output 09/01/23 09/01/23 09/02/23 06:59 18:59 06:59 Intake Total 438 Output Total 250 Balance 438 -250 Intake: IV 200 Levofloxacin 500Mg-D5w 200 Pmx 500 mg In Dextrose/ Water 1 100ml.bag @ 100 mls/hr IVPB Q24H [facility] Rx#: [id number] Oral 238 Output: Urine 250 Other: Voiding Method Bedpan Bedpan Bedpan - Exam Gen: elderly female, NAD CV: regular, bradycardic Lungs: CTAB - Labs CBC & Chem 7: 08/31/23 23:07 08/31/23 23:07 Labs: Abnormal Lab Results - Last 24 Hours (Table) 08/31/23 08/31/23 Range/Units 23:07 23:07 WBC 10.8 H (3.8-10.6) k/uL Sodium 134 L (137-145) mmol/L Carbon Dioxide 20 L (22-30) mmol/L Glucose 127 H (74-99) mg/dL Magnesium 1.5 L (1.6-2.3) mg/dL Assessment and Plan Plan: Continue midodrine 7.5 mg tid and continue with theophylline per Cardiology. PT/OT consult. Monitor BP today. Anticipate dc tomorrow
[2023-09-02] MEDS: MIDODRINE 5 MG TAB PO SCH (06:35)
[2023-09-02] MEDS: LEVOFLOXACIN 500MG-D5W PMX 500 MG in DEXTROSE/WATER 1 100ML.BAG IVPB SCH (09:00)
[2023-09-02] MEDS: THEOPHYLLINE 24 HOUR 200 MG CAP.ER.24H PO SCH (09:00)
[2023-09-02] MEDS: HEPARIN SODIUM,PORCINE 5,000 UNIT/ML 1 ML VIAL SQ SCH (09:00)
[2023-09-02] MEDS: LIDOCAINE 4% PATCH TOPICAL SCH (09:00)
[2023-09-02] MEDS: NICOTINE 21MG/24HR PATCH TRANSDERM SCH (09:00)
[2023-09-02] MEDS: FAMOTIDINE 20 MG/2 ML VIAL IV SCH (09:00)
[2023-09-02 09:14] VITALS: BP 171/95; RESP 17; TEMP 97.6
[2023-09-02 09:39] VITALS: PULSE 47
== END 2023-09-02 11:57 | disposition home health service (06) | DRG 312 ==
LOC: EC 19:04 → 3SCARD 20:49 → OBSVTOIN 20:50 → 3SCARD 21:36
PROVIDERS: ADMIT Family Medicine; ATTEND Family Medicine
DX: I95.2 Hypotension due to drugs (principal); N39.0 Urinary tract infection, site not specified; T46.5X5A Adverse effect of other antihypertensive drugs, initial encounter; E78.5 Hyperlipidemia, unspecified; F31.9 Bipolar disorder, unspecified; F14.10 Cocaine abuse, uncomplicated; R00.1 Bradycardia, unspecified; I10 Essential (primary) hypertension; I08.1 Rheumatic disorders of both mitral and tricuspid valves; M47.26 Other spondylosis with radiculopathy, lumbar region; M48.061 Spinal stenosis, lumbar region without neurogenic claudication; F41.0 Panic disorder [episodic paroxysmal anxiety]; E86.0 Dehydration; T50.905A Adverse effect of unspecified drugs, medicaments and biological substances, initial encounter; G47.00 Insomnia, unspecified; R13.10 Dysphagia, unspecified; G89.29 Other chronic pain; K64.9 Unspecified hemorrhoids; F17.290 Nicotine dependence, other tobacco product, uncomplicated; Z71.6 Tobacco abuse counseling; Z79.899 Other long term (current) drug therapy; Z88.0 Allergy status to penicillin; W18.30XA Fall on same level, unspecified, initial encounter
CPT/HCPCS: 36415; 72114; 72131; 80048; 80053; 80306; 81001; 83605; 83735; 83880; 84100; 84443; 84484; 85025; 85379; 85610; 85730; 87077; 87086; 87186; 93005; 93306; 99291

== ENCOUNTER 2023-09-08 15:16 | Observation (INO) | payer MEDICARE, OTHER ==
--- NOTE | 2023-09-08 15:34 | ED ---
General Adult HPI - General Source: RN notes reviewed <Ellyn Garcia - Last Filed: 09/08/23 15:33> <Dennis Mijares - Last Filed: 09/08/23 20:23> - General Stated complaint: Weakness Time Seen by Provider: 09/08/23 15:33 - History of Present Illness Initial comments: 63-year-old female presents the emergency department via EMS for weakness. EMS reports that landlord was called due to patient having frequent falls. (Ellyn Garcia) - Related Data Home Medications Medication Instructions Recorded Confirmed Benztropine Mesylate [Cogentin] 0.5 mg PO BID 08/26/23 09/08/23 Ibuprofen [Motrin Ib] 400 mg PO DAILY 08/26/23 09/08/23 Olanzapine/Samidorphan Malate 1 tab PO HS 08/26/23 09/08/23 [Lybalvi 10-10 mg Tablet] Zolpidem [Ambien] 10 mg PO HS 08/26/23 09/08/23 Previous Rx's Medication Instructions Recorded Cyclobenzaprine [Flexeril] 10 mg PO HS PRN #21 tab 08/28/23 Nicotine 21Mg/24Hr Patch [Habitrol] 1 patch TRANSDERM DAILY patch 08/30/23 Midodrine [ProAmatine] 7.5 mg PO AC-TID #90 tab 09/02/23 Theophylline 24 Hour [Shawn-24] 200 mg PO DAILY #30 cap 09/02/23 Allergies Allergy/AdvReac Type Severity Reaction Status Date / Time Penicillins Allergy Unknown Rash/Hives/Itching Verified 09/08/23 19:04 all over body Review of Systems ROS Other: All systems not noted in ROS Statement are negative. <Ellyn Garcia - Last Filed: 09/08/23 15:33> ROS Other: All systems not noted in ROS Statement are negative. <Dennis Mijares - Last Filed: 09/08/23 20:23> ROS Statement: Those systems with pertinent positive or pertinent negative responses have been documented in the HPI. Past Medical History Past Medical History: Hyperlipidemia, Hypertension Additional Past Medical History / Comment(s): occ migraines, hemorrhoids, degenerative disks L4 and L5 History of Any Multi-Drug Resistant Organisms: None Reported Past Surgical History: Appendectomy, Section, Orthopedic Surgery Additional Past Surgical History / Comment(s): LEFT ARM (POST TRAUMATIC INJURY) reattached, RIGHT FOOT X3, LEFT KNEE ARTHROSCOPY, left oophorectomy, hemorroidectomy Past Anesthesia/Blood Transfusion Reactions: No Reported Reaction Past Psychological History: Anxiety, Bipolar, Depression, Panic Disorder Smoking Status: Current every day smoker, Former smoker, Vaper Past Alcohol Use History: None Reported Past Drug Use History: None Reported - Past Family History Mother Family Medical History: No Reported History <Ellyn Garcia - Last Filed: 09/08/23 15:33> General Exam <Ellyn Garcia - Last Filed: 09/08/23 15:33> General appearance: alert, in no apparent distress Head exam: Present: atraumatic, normocephalic Eye exam: Present: normal appearance, PERRL ENT exam: Present: mucous membranes dry Neck exam: Present: normal inspection. Absent: tenderness Respiratory exam: Present: normal lung sounds bilaterally. Absent: respiratory distress, wheezes Cardiovascular Exam: Present: regular rate, normal rhythm GI/Abdominal exam: Present: soft. Absent: distended, tenderness, guarding Extremities exam: Absent: full ROM Neurological exam: Present: alert, oriented X3, CN II-XII intact. Absent: motor sensory deficit Psychiatric exam: Present: normal affect, normal mood (Elbow) Skin exam: Present: warm, dry, intact <Dennis Mijares Miguel - Last Filed: 09/08/23 20:23> - General Exam Comments Initial Comments: Visual Physical Exam Vital signs reviewed General: Well-appearing, nontoxic, no acute distress. Head: Normocephalic, atraumatic Eyes: PERRLA, EOMI ENT: Airway patent Chest: Nonlabored breathing Skin: No visual rash, normal skin tone Neuro: Alert and oriented 3 Musculoskeletal: No gross abnormalities (Ellyn Garcia) Course Vital Signs 09/08/23 09/08/23 16:49 19:34 Temperature 97.3 F L 97.5 F L Pulse Rate 61 69 Respiratory 15 16 Rate Blood Pressure 126/83 105/69 O2 Sat by Pulse 96 98 Oximetry Medical Decision Making <Ellyn Garcia - Last Filed: 09/08/23 15:33> - Lab Data Result diagrams: 09/08/23 17:34 09/08/23 17:34 <Dennis Mijares N - Last Filed: 09/08/23 20:23> - Medical Decision Making I performed the quick note portion of this exam, verbal signature Ellyn Garcia PA-C (Ellyn Garcia) Was pt. sent in by a medical professional or institution ([facility], SALES REPRESENTATIVES, urgent care, hospital, or usp...) When possible be specific @ -No Did you speak to anyone other than the patient for history (EMS, parent, family, police, friend...)? What history was obtained from this source @ -No Did you review nursing and triage notes (agree or disagree)? Why? @ -I reviewed and agree with nursing and triage notes Were old charts reviewed (outside hosp., previous admission, EMS record, old E KG, old radiological studies, urgent care reports/EKG's, usp records)? Report findings @ -No old charts were reviewed Differential Diagnosis (chest pain, altered mental status, abdominal pain women, abdominal pain men, vaginal bleeding, weakness, fever, dyspnea, syncope, headache, dizziness, GI bleed, back pain, seizure, CVA, palpatations, mental hea lth, musculoskeletal)? @ -not applicable EKG interpreted by me (3pts min.). @ -Sinus rhythm rate of 84, NE interval 145, QRS duration 78, QTC [address] segment elevation. X-rays interpreted by me (1pt min.). @ -Ray of the chest, left elbow, and pelvis are negative for traumatic injury. CT interpreted by me (1pt min.). @ -None done U/S interpreted by me (1pt. min.). @ -None done What testing was considered but not performed or refused? (CT, X-rays, U/S, labs)? Why? @ -None What meds were considered but not given or refused? Why? @ -None Did you discuss the management of the patient with other professionals (professionals i.e. [facility]se, SALES REPRESENTATIVES, lab, RT, psych nurse, social worker clinical, athletic shoe designer, teacher, forest fire officer, foster care case manager)? Give summary @ -No Was smoking cessation discussed for >3mins.? @ -No Was critical care preformed (if so, how long)? @ -No Were there social determinants of health that impacted care today? How? (Homelessness, low income, unemployed, alcoholism, drug addiction, transportation, low edu. Level, literacy, decrease access to med. care, long-term, rehab)? @ -No Was there de-escalation of care discussed even if they declined (Discuss DNR or withdrawal of care, Hospice)? DNR status @ -No What co-morbidities impacted this encounter? (DM, HTN, Smoking, COPD, CAD, Cancer, CVA, ARF, Chemo, Hep., AIDS, mental health diagnosis, sleep apnea, morbid obesity)? @ -[Debility, htn, hyperlipidemia Was patient admitted / discharged? Hospital course, mention meds given and route, prescriptions, significant lab abnormalities, going to OR and other pertinent info. @ -[63-year-old female with weakness, frequent falls. Patient appears dehydrated and quite debilitated. She has complaints of left elbow pain and bilateral hip pain from the fall. X-rays are obtained and are negative for traumatic injury. She also receives CBC, CMP, troponin this workup is negative. Urinalysis is pending. I do have concerns about this patient's ability to remain in her home without additional care. She will be placed in observation for hydration, awaiting urinalysis, and possible need for additional assistance. Undiagnosed new problem with uncertain prognosis? @ -No Drug Therapy requiring intensive monitoring for toxicity (Heparin, Nitro, Insulin, Cardizem)? @ -No Were any procedures done? @ -No Diagnosis/symptom? @ -Dehydration, weakness, frequent falls Acute, or Chronic, or Acute on Chronic? @acute Uncomplicated (without systemic symptoms) or Complicated (systemic symptoms)? @ -default Side effects of treatment? @ -No Exacerbation, Progression, or Severe Exacerbation? @ -No] Poses a threat to life or bodily function? How? (Chest pain, [place], VA, pneumonia, PE, COPD, DKA, ARF, appy, cholecystitis, CVA, Diverticulitis, Homicidal, Suicidal, threat to staff... and all critical care pts) @ -[low risk at this time (Dennis Mijares) - Lab Data Lab Results 09/08/23 09/08/23 09/08/23 Range/Units 17:34 17:34 17:34 WBC 8.7 (3.8-10.6) k/uL RBC 4.73 (3.80-5.40) m/uL Hgb 15.1 (11.4-16.0) gm/dL Hct 43.7 (34.0-46.0) % MCV 92.2 (80.0-100.0) fL MCH 32.0 (25.0-35.0) pg MCHC 34.7 (31.0-37.0) g/dL RDW 12.5 (11.5-15.5) % Plt Count 275 (150-450) k/uL MPV 7.9 Neutrophils % 51 % Lymphocytes % 40 % Monocytes % 6 % Eosinophils % 1 % Basophils % 1 % Neutrophils # 4.4 (1.3-7.7) k/uL Lymphocytes # 3.5 (1.0-4.8) k/uL Monocytes # 0.5 (0-1.0) k/uL Eosinophils # 0.1 (0-0.7) k/uL Basophils # 0.1 (0-0.2) k/uL PT 12.3 (10.0-12.5) sec INR 1.2 H (<1.2) APTT 26.8 (22.0-30.0) sec Sodium 136 L (137-145) mmol/L Potassium 3.7 (3.5-5.1) mmol/L Chloride 98 (98-107) mmol/L Carbon Dioxide 25 (22-30) mmol/L Anion Gap 13 mmol/L BUN 16 (7-17) mg/dL Creatinine 0.97 (0.52-1.04) mg/dL Est GFR (CKD-EPI)AfAm 73 (>60 ml/min/1.73 sqM) Est GFR (CKD-EPI)NonAf 63 (>60 ml/min/1.73 sqM) Glucose 113 H (74-99) mg/dL Calcium 9.7 (8.4-10.2) mg/dL Total Bilirubin 0.9 (0.2-1.3) mg/dL AST 24 (14-36) U/L ALT 15 (4-34) U/L Alkaline Phosphatase 103 (38-126) U/L Troponin I (0.000-0.034) ng/mL NT-Pro-B Natriuret Pep 515 pg/mL Total Protein 7.0 (6.3-8.2) g/dL Albumin 4.2 (3.5-5.0) g/dL Influenza Type A (PCR) (Not Detectd) Influenza Type B (PCR) (Not Detectd) RSV (PCR) (Not Detectd) SARS-CoV-2 (PCR) (Not Detectd) 09/08/23 09/08/23 Range/Units 17:34 18:22 WBC (3.8-10.6) k/uL RBC (3.80-5.40) m/uL Hgb (11.4-16.0) gm/dL Hct (34.0-46.0) % MCV (80.0-100.0) fL MCH (25.0-35.0) pg MCHC (31.0-37.0) g/dL RDW (11.5-15.5) % Plt Count (150-450) k/uL MPV Neutrophils % % Lymphocytes % % Monocytes % % Eosinophils % % Basophils % % Neutrophils # (1.3-7.7) k/uL Lymphocytes # (1.0-4.8) k/uL Monocytes # (0-1.0) k/uL Eosinophils # (0-0.7) k/uL Basophils # (0-0.2) k/uL PT (10.0-12.5) sec INR (<1.2) APTT (22.0-30.0) sec Sodium (137-145) mmol/L Potassium (3.5-5.1) mmol/L Chloride (98-107) mmol/L Carbon Dioxide (22-30) mmol/L Anion Gap mmol/L BUN (7-17) mg/dL Creatinine (0.52-1.04) mg/dL Est GFR (CKD-EPI)AfAm (>60 ml/min/1.73 sqM) Est GFR (CKD-EPI)NonAf (>60 ml/min/1.73 sqM) Glucose (74-99) mg/dL Calcium (8.4-10.2) mg/dL Total Bilirubin (0.2-1.3) mg/dL AST (14-36) U/L ALT (4-34) U/L Alkaline Phosphatase (38-126) U/L Troponin I <0.012 (0.000-0.034) ng/mL NT-Pro-B Natriuret Pep pg/mL Total Protein (6.3-8.2) g/dL Albumin (3.5-5.0) g/dL Influenza Type A (PCR) Not Detected (Not Detectd) Influenza Type B (PCR) Not Detected (Not Detectd) RSV (PCR) Not Detected (Not Detectd) SARS-CoV-2 (PCR) Not Detected (Not Detectd) Disposition <Ellyn Garcia - Last Filed: 09/08/23 15:33> Is patient prescribed a controlled substance at d/c from ED?: No Time of Disposition: 20:23 <Dennis Mijares - Last Filed: 09/08/23 20:23> Clinical Impression: Dehydration, Frequent falls Disposition: ADMITTED IP TO THIS HOSP Condition: Stable Referrals: Opal Miller DO [Primary Care Provider] - 1-2 days
[2023-09-08 18:06] LABS: Basophils # (A) 0.1 k/uL (0-0.2); Basophils % (A) 1 %; Eosinophils # (A) 0.1 k/uL (0-0.7); Eosinophils % (A) 1 %; HCT 43.7 % (34.0-46.0); HGB 15.1 gm/dL (11.4-16.0); Lymphocytes # (A) 3.5 k/uL (1.0-4.8); Lymphocytes % (A) 40 %; MCHC 34.7 g/dL (31.0-37.0); MCV 92.2 fL (80.0-100.0); Mean Platelet Volume 7.9; Monocytes # (A) 0.5 k/uL (0-1.0); Monocytes % (A) 6 %; Neutrophils # (A) 4.4 k/uL (1.3-7.7); Neutrophils % (A) 51 %; Platelet Count 275 k/uL (150-450); RBC 4.73 m/uL (3.80-5.40); RDW 12.5 % (11.5-15.5); WBC 8.7 k/uL (3.8-10.6)
[2023-09-08 18:14] LABS: ALT 15 U/L (4-34); AST 24 U/L (14-36); African American GFR (CKD) 73 (>60 ml/min/1.73 sqM); Albumin 4.2 g/dL (3.5-5.0); Alkaline Phosphatase 103 U/L (38-126); Anion Gap 13 mmol/L; Blood Urea Nitrogen 16 mg/dL (7-17); Calcium 9.7 mg/dL (8.4-10.2); Carbon Dioxide 25 mmol/L (22-30); Chloride 98 mmol/L (98-107); Glucose 113 mg/dL (74-99); Non-African American GFR(CKD) 63 (>60 ml/min/1.73 sqM); Potassium 3.7 mmol/L (3.5-5.1); Sodium 136 mmol/L (137-145); Total Bilirubin 0.9 mg/dL (0.2-1.3)
[2023-09-08 18:23] LABS: NT-Pro-B-Type Natriuretic Pept 515 pg/mL
[2023-09-08 18:28] LABS: INR 1.2 (<1.2); Partial Thromboplastin Time 26.8 sec (22.0-30.0); Prothrombin Time 12.3 sec (10.0-12.5)
--- NOTE | 2023-09-08 18:32 | XR ---
EXAMINATION TYPE: XR chest 2V DATE OF EXAM: 09/08/2023 COMPARISON: 11/20/2020 HISTORY: 63-year-old female with weakness after fall TECHNIQUE: AP and lateral views FINDINGS: The cardiomediastinal silhouette, aorta, and pulmonary vasculature are within normal limits. Mild hyp erinflation. Otherwise, lungs and pleural spaces are clear. IMPRESSION: There may be some underlying COPD. No acute cardiopulmonary process.
--- NOTE | 2023-09-08 18:35 | XR ---
EXAMINATION TYPE: XR elbow complete 3 views LT, XR pelvis AP view DATE OF EXAM: 09/08/2023 COMPARISON: NONE HISTORY: 63-year-old female with weakness, fall, pain FINDINGS: Left elbow: Some nonspecific ossification along the anterior soft tissues of the distal arm. A surgical clip is a lso present in the anterior soft tissues of the mid arm. Some deficiency of the anterior soft tissues here. No elbow joint effusion. No acute fracture, subluxation, or dislocation. Pelvis: Hips appear symmetric and intact. SI joints are symmetric and intact as is the pubic symphysis. No ac chip[place]wa-cree fracture seen. Some surgical clips in the right ischial tuberosity. IMPRESSION: 1. Left elbow: Heterotopic ossification anterior soft tissues distal arm may reflect sequela of prior distal biceps tendon injury and retracted biceps tendon tear. Clinically correlate. No acute osseous abnormality seen. 2. Pelvis: No acute osseous abnormality seen.
[2023-09-08] MEDS ORDERED: SODIUM CHLORIDE 0.9% 1,000 ML IV ONE (19:23)
[2023-09-08] MEDS ORDERED: HYDROcodone/APAP 5-325MG 1 EACH TAB PO STA (20:18)
[2023-09-08] MEDS ORDERED: ACETAMINOPHEN TAB 325 MG TAB PO PRN (20:18)
[2023-09-08] MEDS ORDERED: NALOXONE 0.4 MG/ML 1 ML VIAL IV PRN (20:18)
[2023-09-08] MEDS: SODIUM CHLORIDE 0.9% 1,000 ML IV SCH (20:27)
[2023-09-08] MEDS: ZOLPIDEM 5 MG TAB PO SCH (22:54)
[2023-09-09] MEDS: HYDROcodone/APAP 5-325MG 1 EACH TAB PO PRN ×2 (05:18→14:44)
[2023-09-09 06:04] LABS: Appearance,Urine Clear (Clear); Bilirubin,Urine Negative (Negative); Blood,Urine Negative (Negative); Color,Urine Light Yellow; Glucose,Urine (UA) Negative (Negative); Ketones,Urine Negative (Negative); Leukocyte Esterase,Urine Negative (Negative); Nitrite,Urine Negative (Negative); PH, Urine 6.5 (5.0-8.0); Protein,Urine Negative (Negative); Specific Gravity,Urine 1.008 (1.001-1.035); Urobilinogen,Urine <2.0 mg/dL (<2.0)
[2023-09-09] MEDS: SODIUM CHLORIDE 0.9% 1,000 ML IV SCH ×2 (08:27→22:03)
[2023-09-09] MEDS: KETOROLAC 15 MG/ML 1 ML VIAL IVP PRN ×2 (09:31→17:02)
[2023-09-09] MEDS: MIDODRINE 5 MG TAB PO SCH ×3 (10:34→17:03)
[2023-09-09] MEDS: ENOXAPARIN 40 MG/0.4 ML SYRINGE SQ SCH (10:34)
[2023-09-09] MEDS: PANTOPRAZOLE 40 MG TABLET PO SCH (10:34)
[2023-09-09] MEDS: BENZTROPINE MESYLATE 0.5 MG TAB PO SCH ×2 (10:35→19:50)
[2023-09-09] MEDS ORDERED: KETOROLAC 15 MG/ML 1 ML VIAL IVP SCH (12:00)
--- NOTE | 2023-09-09 17:25 | P.HPIM ---
History of Present Illness H&P Date: 09/09/23 This is a 63 year old female with medical history of hypertension, hyperlipidemia, migraines, degenerative disks L4 and L5. Patient has significant psychiatric history of anxiety/depression, bipolar, panic disorder. Current smoker. Does have history of cocaine and benzodiazepine use. Patient denies any recent drug use. Comes in the hospital with complaints of frequent falls at home feeling dizzy and lightheaded. States she has not been using a walker at home. Was in the hospital and discharged 7 days ago for the same and evaluated by cardiology who has attributed the presyncope and orthostatic changes to her psychiatric medications. Patient is currently not seeing a psychiatrist and PCP Dr. Miller manages her medications. No chest pain reported, no shortness of breath. Does admit to increased anxiety. Chest xray on admission showing some underlying COPD with no acute changes. Pelvis and elbow xray showing no acute fracture. EKG showing sinus rhythm heart rate of 84. CBC unremarkable, INR 1.2, Sodium 136, glucose 113. BUN 16, creatinine 0.97. proBNP 515. Urinalysis is unremarkable. Influenza, RSV, Covid are all negative. Admitted to the hospital for weakness and multiple falls. Found to have positive orthostatic changes standing to 134/80 and standing down to 77/53. On room air. Alert x 3. Lives with room mates has previously refused any type of rehab or home care. REVIEW OF SYSTEMS: CONSTITUTIONAL: No fever, no malaise, no fatigue. Reports dizziness and lightheadedness. HEENT: No recent visual problems or hearing problems. Denied any sore throat. CARDIOVASCULAR: No chest pain, orthopnea, PND, no palpitations, no syncope. PULMONARY: No shortness of breath, no cough, no hemoptysis. GASTROINTESTINAL: No diarrhea, no nausea, no vomiting, no abdominal pain. NEUROLOGICAL: No headaches, no weakness, no numbness. HEMATOLOGICAL: Denies any bleeding or petechiae. GENITOURINARY: Denies any burning micturition, frequency, or urgency. MUSCULOSKELETAL/RHEUMATOLOGICAL: Denies any joint pain, swelling, or any muscle pain. ENDOCRINE: Denies any polyuria or polydipsia. The rest of the 14-point review of systems is negative. PHYSICAL EXAMINATION: GENERAL: The patient is alert and oriented x3, not in any acute distress. Well developed, well nourished. HEENT: Pupils are round and equally reacting to light. EOMI. No scleral icterus. No conjunctival pallor. Normocephalic, atraumatic. No pharyngeal erythema. No thyromegaly. CARDIOVASCULAR: S1 and S2 present. No murmurs, rubs, or gallops. PULMONARY: Chest is clear to auscultation, no wheezing or crackles. ABDOMEN: Soft, nontender, nondistended, normoactive bowel sounds. No palpable organomegaly. MUSCULOSKELETAL: No joint swelling or deformity. EXTREMITIES: No cyanosis, clubbing, or pedal edema. NEUROLOGICAL: Gross neurological examination did not reveal any focal deficits. SKIN: No rashes. Assessment and Plan -Pre-Syncope secondary to positive orthostatic hypotension. Recommending to increase midodrine. Was recently taken off clonidine. Recommend stopping the theophylline. Continue with IV fluids and monitor blood pressure. Need to be seen by physical therapy before discharge. -Bipolar on Lybalvi and cogentin recommending to follow up with [facility] and psychiatry outpatient for adjustment of medications -Insomnia will add melatonin for sleep -Anxiety -Chronic back pain, Right-sided lumbar radiculopathy,L4-L5, L5-L1 lumbar spondylosis with mild/moderate central canal stenosis and neural foraminal stenosis -History of cocaine abuse -Recent treatment of UTI with levaquin, completed course of treatment GI prophylaxis DVT prophylaxis Full Code The impression and plan of care has been dictated by Dilcia Renteria, Nurse Practitioner as directed. Dr. Beth MD I have performed a history and physical examination and medical decision making of this patient, discussed the same with the dictator, and agree with the dictators assessment and plan as written, documented as a scribe. Based on total visit time, I have performed more than 50% of this visit. Past Medical History Past Medical History: Hyperlipidemia, Hypertension Additional Past Medical History / Comment(s): occ migraines, hemorrhoids, degenerative disks L4 and L5 History of Any Multi-Drug Resistant Organisms: None Reported Past Surgical History: Appendectomy, Section, Orthopedic Surgery Additional Past Surgical History / Comment(s): LEFT ARM (POST TRAUMATIC INJURY) reattached, RIGHT FOOT X3, LEFT KNEE ARTHROSCOPY, left oophorectomy, hemorroidectomy Past Anesthesia/Blood Transfusion Reactions: No Reported Reaction Past Psychological History: Anxiety, Bipolar, Depression, Panic Disorder Smoking Status: Current every day smoker, Vaper Past Alcohol Use History: None Reported Additional Past Alcohol Use History / Comment(s): quit smoking 2015, smoked for 15 yrs, < 1 PPD Past Drug Use History: None Reported - Past Family History Mother Family Medical History: No Reported History Medications and Allergies Home Medications Medication Instructions Recorded Confirmed Type Benztropine Mesylate [Cogentin] 0.5 mg PO BID 08/26/23 09/08/23 History Ibuprofen [Motrin Ib] 400 mg PO DAILY 08/26/23 09/08/23 History Olanzapine/Samidorphan Malate 1 tab PO HS 08/26/23 09/08/23 History [Lybalvi 10-10 mg Tablet] Zolpidem [Ambien] 10 mg PO HS 08/26/23 09/08/23 History Cyclobenzaprine [Flexeril] 10 mg PO HS PRN #21 tab 08/28/23 09/08/23 Rx Nicotine 21Mg/24Hr Patch [Habitrol] 1 patch TRANSDERM DAILY patch 08/30/23 09/08/23 Rx Midodrine [ProAmatine] 7.5 mg PO AC-TID #90 tab 09/02/23 09/08/23 Rx Theophylline 24 Hour [Shawn-24] 200 mg PO DAILY #30 cap 09/02/23 09/08/23 Rx Allergies Allergy/AdvReac Type Severity Reaction Status Date / Time Penicillins Allergy Unknown Rash/Hives/Itching Verified 09/08/23 19:04 all over body Physical Exam Vitals: Vital Signs Temp Pulse Pulse Pulse Pulse Pulse Resp 09/09/23 07:00 98 F 76 109 H 69 19 09/09/23 02:00 97.4 F L 56 L 16 09/08/23 22:55 97.5 F L 70 16 09/08/23 19:34 97.5 F L 69 16 09/08/23 16:49 97.3 F L 61 15 BP BP BP BP BP Pulse Ox 09/09/23 07:00 103/70 77/53 134/80 96 09/09/23 02:00 150/88 96 09/08/23 22:55 118/79 94 L 09/08/23 19:34 105/69 98 09/08/23 16:49 126/83 96 Intake and Output 09/08/23 09/09/2323 22:59 06:59 14:59 Intake Total 240 Balance 240 Intake: Oral 240 Other: Voiding Method External Catheter External Catheter # Voids 1 Weight 54.431 kg Results CBC & Chem 7: 09/08/23 17:34 09/08/23 17:34 Labs: Abnormal Lab Results - Last 24 Hours (Table) 09/08/23 09/08/23 Range/Units 17:34 17:34 INR 1.2 H (<1.2) Sodium 136 L (137-145) mmol/L Glucose 113 H (74-99) mg/dL Assessment and Plan Time with Patient: Less than 30
[2023-09-09] MEDS: ZOLPIDEM 5 MG TAB PO SCH (19:50)
[2023-09-09] MEDS: SAMIDORPHAN MALATE PO SCH (19:51)
[2023-09-09] MEDS: OLANZAPINE PO SCH (19:51)
[2023-09-10] MEDS: PANTOPRAZOLE 40 MG TABLET PO SCH (06:18)
[2023-09-10] MEDS: MIDODRINE 5 MG TAB PO SCH ×2 (09:33→12:30)
[2023-09-10] MEDS: BENZTROPINE MESYLATE 0.5 MG TAB PO SCH ×2 (09:43→20:05)
[2023-09-10] MEDS: NICOTINE 21MG/24HR PATCH TRANSDERM SCH (09:43)
[2023-09-10] MEDS: HYDROcodone/APAP 5-325MG 1 EACH TAB PO PRN ×2 (09:48→20:06)
[2023-09-10] MEDS: KETOROLAC 15 MG/ML 1 ML VIAL IVP PRN ×2 (09:52→16:12)
[2023-09-10] MEDS ORDERED: HYDROmorphone 0.5 MG/0.5 ML SYRINGE IVP STA (15:04)
[2023-09-10] MEDS: ENOXAPARIN 40 MG/0.4 ML SYRINGE SQ SCH ×2 (16:13→16:20)
[2023-09-10] MEDS: SODIUM CHLORIDE 0.9% 1,000 ML IV SCH (16:18)
[2023-09-10] MEDS ORDERED: MIDODRINE 5 MG TAB PO SCH (17:30)
[2023-09-10] MEDS ORDERED: hydrALAZINE HCL 10 MG TAB PO STA (18:19)
[2023-09-10] MEDS: OLANZAPINE PO SCH (19:41)
[2023-09-10] MEDS: SAMIDORPHAN MALATE PO SCH (19:41)
[2023-09-10] MEDS: ZOLPIDEM 5 MG TAB PO SCH (20:05)
[2023-09-10] MEDS ORDERED: hydrALAZINE HCL 20 MG/ML 1 ML VIAL IVP STA (20:12)
[2023-09-10] MEDS ORDERED: MIDODRINE 5 MG TAB PO PRN (20:45)
--- NOTE | 2023-09-10 23:44 | P.PN ---
Subjective Progress Note Date: 09/10/23 This is a 63 year old female with medical history of hypertension, hyperlipidemia, migraines, degenerative disks L4 and L5. Patient has significant psychiatric history of anxiety/depression, bipolar, panic disorder. Current smoker. Does have history of cocaine and benzodiazepine use. Patient denies any recent drug use. Comes in the hospital with complaints of frequent falls at home feeling dizzy and lightheaded. States she has not been using a walker at home. Was in the hospital and discharged 7 days ago for the same and evaluated by cardiology who has attributed the presyncope and orthostatic changes to her psychiatric medications. Patient is currently not seeing a psychiatrist and PCP Dr. Miller manages her medications. No chest pain reported, no shortness of breath. Does admit to increased anxiety. Chest xray on admission showing some underlying COPD with no acute changes. Pelvis and elbow xray showing no acute fracture. EKG showing sinus rhythm heart rate of 84. CBC unremarkable, INR 1.2, Sodium 136, glucose 113. BUN 16, creatinine 0.97. proBNP 515. Urinalysis is unremarkable. Influenza, RSV, Covid are all negative. Admitted to the hospital for weakness and multiple falls. Found to have positive orthostatic changes standing to 134/80 and standing down to 77/53. On room air. Alert x 3. Lives with room mates has previously refused any type of rehab or home care. 09/10/2023 Patient is resting in the bed. Awake alert and oriented x 3. Denies any complaints of dizziness today when she got up to shower. No complaints of chest pain. No headache or lightheadedness. Patient has been afebrile. Otherwise blood pressure, SBP went up to 180s today. Midodrine dose was held this morning and afternoon. Decreased to 5 mg 3 times daily as needed. IV fluids will be on hold. Laboratory data reviewed. UA negative for infection. Current medications reviewed. REVIEW OF SYSTEMS: CONSTITUTIONAL: No fever, no malaise, no fatigue. no dizziness and lightheadedness. HEENT: No recent visual problems or hearing problems. Denied any sore throat. CARDIOVASCULAR: No chest pain, orthopnea, PND, no palpitations, no syncope. PULMONARY: No shortness of breath, no cough, no hemoptysis. GASTROINTESTINAL: No diarrhea, no nausea, no vomiting, no abdominal pain. NEUROLOGICAL: No headaches, no weakness, no numbness. HEMATOLOGICAL: Denies any bleeding or petechiae. GENITOURINARY: Denies any burning micturition, frequency, or urgency. MUSCULOSKELETAL/RHEUMATOLOGICAL: Denies any joint pain, swelling, or any muscle pain. ENDOCRINE: Denies any polyuria or polydipsia. The rest of the 14-point review of systems is negative. PHYSICAL EXAMINATION: GENERAL: The patient is alert and oriented x3, not in any acute distress. Well developed, well nourished. HEENT: Pupils are round and equally reacting to light. EOMI. No scleral icterus. No conjunctival pallor. Normocephalic, atraumatic. No pharyngeal erythema. No thyromegaly. CARDIOVASCULAR: S1 and S2 present. No murmurs, rubs, or gallops. PULMONARY: Chest is clear to auscultation, no wheezing or crackles. ABDOMEN: Soft, nontender, nondistended, normoactive bowel sounds. No palpable organomegaly. MUSCULOSKELETAL: No joint swelling or deformity. EXTREMITIES: No cyanosis, clubbing, or pedal edema. NEUROLOGICAL: Gross neurological examination did not reveal any focal deficits. SKIN: No rashes. Assessment and Plan -Pre-Syncope secondary to positive orthostatic hypotension. Currently on midodrine 10 mg 3 times daily. Dose decreased to 5 mg 3 times daily as needed. Clonidine and theophylline is on hold. Patient is tolerating oral diet and IV fluids will be discontinued. Continue to monitor blood pressure.. Need to be seen by physical therapy before discharge. -Bipolar on Lybalvi and cogentin recommending to follow up with [facility] and psychiatry outpatient for adjustment of medications -Insomnia will add melatonin for sleep -Anxiety -Chronic back pain, Right-sided lumbar radiculopathy,L4-L5, L5-L1 lumbar spondylosis with mild/moderate central canal stenosis and neural foraminal stenosis -History of cocaine abuse -Recent treatment of UTI with levaquin, completed course of treatment GI prophylaxis DVT prophylaxis Full Code Objective - Vital Signs Vital signs: Vital Signs Temp 98.3 F 09/10/23 07:45 Pulse 98 09/10/23 12:40 Resp 19 09/10/23 08:00 BP 166/98 09/10/23 12:40 Pulse Ox 96 09/10/23 07:45 FiO2 Intake & Output 09/09/23 09/10/2323 18:59 06:59 18:59 Intake Total 358 Balance 358 Intake: Oral 358 Other: Voiding Method Bedside Commode Bedside Commode Bedside Commode Bedpan Bedpan Bedpan # Voids 2 2 - Labs CBC & Chem 7: 09/08/23 17:34 09/08/23 17:34
[2023-09-11] MEDS: KETOROLAC 15 MG/ML 1 ML VIAL IVP PRN ×3 (01:02→15:32)
[2023-09-11] MEDS: PANTOPRAZOLE 40 MG TABLET PO SCH (05:56)
[2023-09-11 09:07] LABS: Blood Urea Nitrogen 14.7 mg/dL (9.0-27.0); Calcium 9.1 mg/dL (8.7-10.3); Carbon Dioxide 25.3 mmol/L (21.6-31.8); Chloride 104 mmol/L (96-109); Glucose 103 mg/dL (70-110); Potassium 3.6 mmol/L (3.5-5.5); Sodium 138 mmol/L (135-145)
[2023-09-11 09:13] LABS: Basophils # (A) 0.04 X 10*3/uL (0.00-0.10); Basophils % (A) 0.6 %; Eosinophils # (A) 0.12 X 10*3/uL (0.04-0.35); Eosinophils % (A) 1.9 %; HCT 39.5 % (37.2-46.3); HGB 12.8 g/dL (12.0-15.0); Lymphocytes # (A) 3.12 X 10*3/uL (0.90-5.00); Lymphocytes % (A) 48.9 %; MCH 30.2 pg (27.0-32.0); MCHC 32.4 g/dL (32.0-37.0); MCV 93.2 FL (80.0-97.0); Mean Platelet Volume 10.3 FL (9.5-12.2); Monocytes # (A) 0.42 X 10*3/uL (0.20-1.00); Monocytes % (A) 6.6 %; NRBC Per 100 WBC 0 X 10*3/uL (0.00-0.01); Neutrophils # (A) 2.67 X 10*3/uL (1.80-7.70); Neutrophils % (A) 41.8 %; Platelet Count 275 X 10*3/uL (140-440); RBC 4.24 X 10*6/uL (4.10-5.20); RDW 13.2 % (11.5-14.5); WBC 6.38 X 10*3/uL (4.50-10.00)
[2023-09-11] MEDS: NICOTINE 21MG/24HR PATCH TRANSDERM SCH (09:29)
[2023-09-11] MEDS: ENOXAPARIN 40 MG/0.4 ML SYRINGE SQ SCH (09:31)
[2023-09-11] MEDS: BENZTROPINE MESYLATE 0.5 MG TAB PO SCH (09:34)
[2023-09-11] MEDS: HYDROcodone/APAP 5-325MG 1 EACH TAB PO PRN ×2 (09:35→15:32)
[2023-09-11] MEDS ORDERED: amLODIPine 2.5 MG TAB PO SCH (12:00)
[2023-09-11 14:44] VITALS: BP 148/85; PULSE 79; RESP 16; TEMP 98.4
--- NOTE | 2023-09-11 14:54 | P.CRDCN ---
History of Present Illness Consult date: 09/11/23 History of present illness: HISTORY OF PRESENTING ILLNESS 63-year-old female with hypertension, dyslipidemia, migraines, degenerative disc disease with chronic back pain. She also has history of anxiety and bipolar disorder. She also has history of cocaine and benzodiazepine abuse in past. She is also a smoker. Patient was recently in the hospital because of recurrent falls and feeling dizzy. There is a question of low blood pressure and low heart rate last time and she was started on Theophylline. It is unsure if patient was taking this medication at the time of discharge. This time patient presented to the hospital because of feeling lightheaded and dizzy along with falls. She did not pass out. REVIEW OF SYSTEMS 14 point review of system is negative except what is mentioned above in HPI. PHYSICAL EXAMINATION Vital signs reviewed. Head: Normocephalic. Eyes: Sclerae nonicteric. Neck: Brisk carotid upstroke, no jugular venous distention. Lungs: Clear to auscultation. Heart: Regular rate and rhythm, S1-S2, no S3, no murmur or rub. Abdomen: Soft nontender, positive bowel sounds no organomegaly. Extremities: No edema, intact distal pulses. Neuro: Alert, oritented, no focal deficits ASSESSMENT Supine hypertension with orthostatic hypotension Positive orthostatic vital signs Autonomic dysfunction likely due to combination of psychiatric medications, pain medications, insomnia Bipolar disorder Chronic insomnia Anxiety and depression Prior history of drug abuse Recent echocardiogram showed normal LV size and systolic function with no valvu lar dysfunction. Prior telemetry monitoring did not show any arrhythmias. ECG shows normal sinus rhythm PLAN Would refrain from using antihypertensives like clonidine and hydralazine Would use something which is more soft and long-acting. Like amlodipine 2.5 mg daily. This may need to be uptitrated slowly to 5 mg. This should be done over the next course of 1-2 weeks. Allow patient to have supine hypertension. Instructed patient to check blood pressure at home in sitting position. Gave her the names to consider and call if questions. Do not resume Theophylline, stop benztropine Pain clinic referral for possible nerve block o/p Past Medical History Past Medical History: Hyperlipidemia, Hypertension Additional Past Medical History / Comment(s): occ migraines, hemorrhoids, degenerative disks L4 and L5 History of Any Multi-Drug Resistant Organisms: None Reported Past Surgical History: Appendectomy, Section, Orthopedic Surgery Additional Past Surgical History / Comment(s): LEFT ARM (POST TRAUMATIC INJURY) reattached, RIGHT FOOT X3, LEFT KNEE ARTHROSCOPY, left oophorectomy, hemorroidectomy Past Anesthesia/Blood Transfusion Reactions: No Reported Reaction Past Psychological History: Anxiety, Bipolar, Depression, Panic Disorder Smoking Status: Current every day smoker, Vaper Past Alcohol Use History: None Reported Additional Past Alcohol Use History / Comment(s): quit smoking 2015, smoked for 15 yrs, < 1 PPD Past Drug Use History: None Reported - Past Family History Mother Family Medical History: No Reported History Medications and Allergies Home Medications Medication Instructions Recorded Confirmed Type Benztropine Mesylate [Cogentin] 0.5 mg PO BID 08/26/23 09/08/23 History Ibuprofen [Motrin Ib] 400 mg PO DAILY 08/26/23 09/08/23 History Olanzapine/Samidorphan Malate 1 tab PO HS 08/26/23 09/08/23 History [Lybalvi 10-10 mg Tablet] Zolpidem [Ambien] 10 mg PO HS 08/26/23 09/08/23 History Cyclobenzaprine [Flexeril] 10 mg PO HS PRN #21 tab 08/28/23 09/08/23 Rx Nicotine 21Mg/24Hr Patch [Habitrol] 1 patch TRANSDERM DAILY patch 08/30/23 09/08/23 Rx Midodrine [ProAmatine] 7.5 mg PO AC-TID #90 tab 09/02/23 09/08/23 Rx Theophylline 24 Hour [Shawn-24] 200 mg PO DAILY #30 cap 09/02/23 09/08/23 Rx Allergies Allergy/AdvReac Type Severity Reaction Status Date / Time Penicillins Allergy Unknown Rash/Hives/Itching Verified 09/08/23 19:04 all over body Physical Exam Vitals: Vital Signs Temp Pulse Pulse Pulse Pulse Resp BP 09/11/23 14:20 98.4 F 79 16 09/11/23 09:36 18 09/11/23 08:00 95 89 78 128/80 09/11/23 07:33 98.3 F 86 18 09/11/23 02:34 98.4 F 85 15 09/10/23 23:10 09/10/23 20:00 203/119 09/10/23 19:13 98.3 F 99 16 09/10/23 18:19 09/10/23 17:40 98.8 F 101 H BP BP BP Pulse Ox 09/11/23 14:20 148/85 96 09/11/23 09:36 09/11/23 08:00 122/85 165/94 09/11/23 07:33 169/98 95 09/11/23 02:34 162/81 93 L 09/10/23 23:10 147/81 09/10/23 20:00 09/10/23 19:13 209/104 96 09/10/23 18:19 184/110 09/10/23 17:40 180/112 96 Intake and Output 09/10/23 09/11/23 09/11/23 22:59 06:59 14:59 Other: Voiding Method Toilet Toilet # Voids 1 2 4 Results 09/11/23 06:26 09/11/23 06:26 CBC 09/11/23 Range/Units 06:26 WBC 6.38 (4.50-10.00) X 10*3/uL RBC 4.24 (4.10-5.20) X 10*6/uL Hgb 12.8 (12.0-15.0) g/dL Hct 39.5 (37.2-46.3) % Plt Count 275 (140-440) X 10*3/uL Comprehensive Metabolic Panel 09/11/23 Range/Units 06:26 Sodium 138 (135-145) mmol/L Potassium 3.6 (3.5-5.5) mmol/L Chloride 104 (96-109) mmol/L Carbon Dioxide 25.3 (21.6-31.8) mmol/L BUN 14.7 (9.0-27.0) mg/dL Creatinine 0.7 (0.6-1.5) mg/dL Glucose 103 (70-110) mg/dL Calcium 9.1 (8.7-10.3) mg/dL Current Medications Generic Name Dose Route Start Last Admin Trade Name Freq PRN Reason Stop Dose Admin Acetaminophen 650 mg 09/08/23 20:18 Acetaminophen Tab 325 Mg Tab PO Q6HR PRN Mild Pain or Fever > 100.5 Hydrocodone Bitart/Acetaminophen 1 each 09/08/23 22:42 09/11/23 09:35 Hydrocodone/Apap 5-325mg 1 Each Tab PO 1 each Q6HR PRN Administration Pain Amlodipine Besylate 2.5 mg 09/11/23 12:00 09/11/23 13:43 Amlodipine 2.5 Mg Tab PO 2.5 mg DAILY BARRY Administration Benztropine Mesylate 0.5 mg 09/09/23 10:00 09/11/23 09:34 Benztropine Mesylate 0.5 Mg Tab PO 0.5 mg BID BARRY Administration Enoxaparin Sodium 40 mg 09/09/23 10:00 09/11/23 09:31 Enoxaparin 40 Mg/0.4 Ml Syringe SQ 40 mg DAILY BARRY Administration Ketorolac Tromethamine 15 mg 09/09/23 09:17 09/11/23 09:36 Ketorolac 15 Mg/Ml 1 Ml Vial IVP 09/14/23 09:00 15 mg Q6HR PRN Administration Pain Naloxone HCl 0.2 mg 09/08/23 20:18 Naloxone 0.4 Mg/Ml 1 Ml Vial IV Q2M PRN Opioid Reversal Nicotine 1 patch 09/10/23 09:00 09/11/23 09:29 Nicotine 21mg/24hr Patch TRANSDERM Not Given DAILY BARRY Olanzapine/ 1 tab 09/09/23 21:00 09/10/23 19:41 Samidorphan Malate [ PO Not Given Lybalvi 10-10 Mg HS BARRY Tablet] 1 Each Tablet) Pantoprazole Sodium 40 mg 09/09/23 10:00 09/11/23 05:56 Pantoprazole 40 Mg Tablet PO 40 mg [id number] BARRY Administration Zolpidem Tartrate 10 mg 09/08/23 22:45 09/10/23 20:05 Zolpidem 5 Mg Tab PO 10 mg HS BARRY Administration Intake and Output 09/10/23 09/11/23 09/11/23 22:59 06:59 14:59 Other: Voiding Method Toilet Toilet # Voids 1 2 4 09/11/23 06:26 09/11/23 06:26
== END 2023-09-11 17:53 | disposition home health service (06) ==
LOC: EC 15:16 → 6NMEDSUR 20:18
PROVIDERS: ADMIT Hospitalist; ATTEND Hospitalist
DX: I95.1 Orthostatic hypotension (principal); E86.0 Dehydration; E78.5 Hyperlipidemia, unspecified; I10 Essential (primary) hypertension; J44.9 Chronic obstructive pulmonary disease, unspecified; G47.00 Insomnia, unspecified; G43.909 Migraine, unspecified, not intractable, without status migrainosus; M51.36 Other intervertebral disc degeneration, lumbar region; M47.26 Other spondylosis with radiculopathy, lumbar region; M48.061 Spinal stenosis, lumbar region without neurogenic claudication; F17.290 Nicotine dependence, other tobacco product, uncomplicated; G89.29 Other chronic pain; M25.551 Pain in right hip; M25.552 Pain in left hip; M25.522 Pain in left elbow; W19.XXXA Unspecified fall, initial encounter; Y92.009 Unspecified place in unspecified non-institutional (private) residence as the place of occurrence of the external cause; F51.04 Psychophysiologic insomnia; G90.9 Disorder of the autonomic nervous system, unspecified; F31.9 Bipolar disorder, unspecified; F41.0 Panic disorder [episodic paroxysmal anxiety]; F41.9 Anxiety disorder, unspecified; Z11.52 Encounter for screening for COVID-19; Z11.59 Encounter for screening for other viral diseases; R29.6 Repeated falls; Z79.1 Long term (current) use of non-steroidal anti-inflammatories (NSAID); Z79.899 Other long term (current) drug therapy; Z88.0 Allergy status to penicillin; Z90.49 Acquired absence of other specified parts of digestive tract; Z98.891 History of uterine scar from previous surgery; Z91.81 History of falling; Z90.721 Acquired absence of ovaries, unilateral; Z87.19 Personal history of other diseases of the digestive system; Z87.440 Personal history of urinary (tract) infections; Z87.898 Personal history of other specified conditions; Z98.890 Other specified postprocedural states
CPT/HCPCS: 96376 ×3; 96361 ×4; 96372 ×3; 96374; 96375; 99285; 36415; 93005; 83880; 80053; 80048; 84484; 85025 ×2; 85610; 85730; 81003; 87636; 72170; 73080; 71046; G0378 ×4; J0360; J1650 ×3; J1885 ×3; J1170

== ENCOUNTER 2023-12-20 14:46 | Emergency (ER) | payer MEDICARE, OTHER ==
--- NOTE | 2023-12-20 16:56 | ED ---
Anxiety HPI - General Chief Complaint: Anxiety Stated Complaint: Anxiety Time Seen by Provider: 12/20/23 15:33 Source: patient, RN notes reviewed, old records reviewed Mode of arrival: EMS Limitations: no limitations - History of Present Illness Initial Comments: This is a 63-year-old female to the ER for evaluation today. Patient states she is struggling with significant anxiety. She has been struggling with increased anxiety lately with no travel history or sick contacts. Patient has no drugs or alcohol today. MD Complaint: anxiety -: hour(s) Symptoms: palpitations Severity: mild Quality: constant Provoking factors: none known Worsens With: nothing Associated symptoms: palpitations, malaise, weakness - Related Data Home Medications: Home Medications Medication Instructions Recorded Confirmed Olanzapine/Samidorphan Malate 1 tab PO HS 08/26/23 09/08/23 [Lybalvi 10-10 mg Tablet] Previous Rx's Medication Instructions Recorded Nicotine 21Mg/24Hr Patch [Habitrol] 1 patch TRANSDERM DAILY patch 08/30/23 Zolpidem [Ambien] 10 mg PO HS PRN #0 09/11/23 amLODIPine [Norvasc] 2.5 mg PO DAILY 30 Days #30 tab 09/11/23 LORazepam [Ativan] 2 mg PO TID 3 Days #9 tab 12/20/23 Allergies/Adverse Reactions: Allergies Allergy/AdvReac Type Severity Reaction Status Date / Time Penicillins Allergy Unknown Rash/Hives/Itching Verified 09/08/23 19:04 all over body Review of Systems ROS Statement: Those systems with pertinent positive or pertinent negative responses have been documented in the HPI. ROS Other: All systems not noted in ROS Statement are negative. Past Medical History Past Medical History: Hyperlipidemia, Hypertension Additional Past Medical History / Comment(s): occ migraines, hemorrhoids, degenerative disks L4 and L5 History of Any Multi-Drug Resistant Organisms: None Reported Past Surgical History: Appendectomy, Section, Orthopedic Surgery Additional Past Surgical History / Comment(s): LEFT ARM (POST TRAUMATIC INJURY) reattached, RIGHT FOOT X3, LEFT KNEE ARTHROSCOPY, left oophorectomy, hemorroidectomy Past Anesthesia/Blood Transfusion Reactions: No Reported Reaction Past Psychological History: Anxiety, Bipolar, Depression, Panic Disorder Smoking Status: Current every day smoker Past Alcohol Use History: None Reported Past Drug Use History: None Reported - Past Family History Mother Family Medical History: No Reported History General Exam Limitations: no limitations General appearance: alert, in no apparent distress, anxious Head exam: Present: atraumatic, normocephalic, normal inspection Eye exam: Present: normal appearance, PERRL, EOMI. Absent: scleral icterus, conjunctival injection, periorbital swelling ENT exam: Present: normal exam, mucous membranes moist Neck exam: Present: normal inspection. Absent: tenderness, meningismus, lymphadenopathy Respiratory exam: Present: normal lung sounds bilaterally. Absent: respiratory distress, wheezes, rales, rhonchi, stridor Cardiovascular Exam: Present: regular rate, normal rhythm, normal heart sounds. Absent: systolic murmur, diastolic murmur, rubs, gallop, clicks GI/Abdominal exam: Present: soft, normal bowel sounds. Absent: distended, tenderness, guarding, rebound, rigid Extremities exam: Present: normal inspection, full ROM, normal capillary refill. Absent: tenderness, pedal edema, joint swelling, calf tenderness Back exam: Present: normal inspection Neurological exam: Present: alert, oriented X3, CN II-XII intact Psychiatric exam: Present: normal affect, normal mood Skin exam: Present: warm, dry, intact, normal color. Absent: rash Course Vital Signs 12/20/23 12/20/23 14:49 17:19 Temperature 98.3 F 98.2 F Pulse Rate 103 H 68 Respiratory 22 18 Rate Blood Pressure 102/68 121/78 O2 Sat by Pulse 97 97 Oximetry - Reevaluation(s) Reevaluation #1: Medical records reviewed Reevaluation #2: Symptoms improved Reevaluation #3: Patient informed of results and questions answered Reevaluation #4: Was pt. sent in by a medical professional or institution (, PA, COMPUTER SECURITY SPECIALIST, urgent care, hospital, or usp...) When possible be specific @ -no Did you speak to anyone other than the patient for history (EMS, parent, family, police, friend...)? What history was obtained from this source @ -no Did you review nursing and triage notes (agree or disagree)? Why? @ -agree Are old charts reviewed (outside hosp., previous admission, EMS record, old EKG, old radiological studies, urgent care reports/EKG's, usp records)? Report findings @ -yes Differential Diagnosis (chest pain, altered mental status, abdominal pain women, abdominal pain men, vaginal bleeding, weakness, fever, dyspnea, syncope, headache, dizziness, GI bleed, back pain, seizure, CVA, palpatations, mental health, musculoskeletal)? @ -prior EKG interpreted by me (3pts min.). @ -yes X-rays interpreted by me (1pt min.). @ -no CT interpreted by me (1pt min.). @ -no U/S interpreted by me (1pt. min.). @ -no What testing was considered but not performed or refused? (CT, X-rays, U/S, labs)? Why? @ -none What meds were considered but not given or refused? Why? @ -none Did you discuss the management of the patient with other professionals (professionals i.e. , PA, COMPUTER SECURITY SPECIALIST, lab, RT, psych nurse, director social service, executive sales manager, teacher, ground defence officer, director case management)? Give summary @ -no Was smoking cessation discussed for >3mins.? @ -no Was critical care preformed (if so, how long)? @ -no Were there social determinants of health that impacted care today? How? (Homelessness, low income, unemployed, alcoholism, drug addiction, transportation, low edu. Level, literacy, decrease access to med. care, nursing home, rehab)? @ -none Was there de-escalation of care discussed even if they declined (Discuss DNR or withdrawal of care, Hospice)? DNR status @ -no What co-morbidities impacted this encounter? (DM, HTN, Smoking, COPD, CAD, Cancer, CVA, ARF, Chemo, Hep., AIDS, mental health diagnosis, sleep apnea, morbid obesity)? @ -none Was patient admitted / discharged? Hospital course, mention meds given and route, prescriptions, significant lab abnormalities, going to OR and other pertinent info. @ - 63 female to ER for evaluation of significant anxiety. Patient symptoms improved here in the ER and can be discharged home Discharge Undiagnosed new problem with uncertain prognosis? @ -no Drug Therapy requiring intensive monitoring for toxicity (Heparin, Nitro, Insulin, Cardizem)? @ -no Were any procedures done? @ -no Diagnosis/symptom? @ -Anxiety Acute, or Chronic, or Acute on Chronic? @ -Acute Uncomplicated (without systemic symptoms) or Complicated (systemic symptoms)? @ -Complicated Side effects of treatment? @ -no Exacerbation, Progression, or Severe Exacerbation? @ -exacerbation Poses a threat to life or bodily function? How? (Chest pain, [place], [place], pneumonia, PE, COPD, DKA, ARF, appy, cholecystitis, CVA, Diverticulitis, Homicidal, Suicidal, threat to staff... and all critical care pts) @ -yes significant extremes of age Medical Decision Making - Medical Decision Making 63 female to ER for evaluation of significant anxiety. Patient symptoms improved here in the ER and can be discharged home Disposition Clinical Impression: Acute anxiety, Anxiety Disposition: HOME SELF-CARE Condition: Good Instructions (If sedation given, give patient instructions): Generalized Anxiet y Disorder (ED) Prescriptions: LORazepam [Ativan] 2 mg PO TID 3 Days #9 tab Is patient prescribed a controlled substance at d/c from ED?: No Referrals: Opal Miller DO [Primary Care Provider] - 1-2 days Time of Disposition: 17:00
[2023-12-20] MEDS: LORazepam 1 MG TAB PO STA (16:58)
[2023-12-20 17:42] VITALS: BP 121/78; PULSE 68; RESP 18; TEMP 98.2
== END 2023-12-20 17:20 | disposition home or self-care (01) ==
LOC: EC 14:46
DX: F41.9 Anxiety disorder, unspecified (principal); F17.200 Nicotine dependence, unspecified, uncomplicated; Z88.0 Allergy status to penicillin
CPT/HCPCS: 99283

== ENCOUNTER 2024-03-16 15:58 | Emergency (ER) | payer MEDICARE, OTHER ==
--- NOTE | 2024-03-16 16:14 | ED ---
Fall HPI - General Chief Complaint: Fall Stated Complaint: Overdose-Fall Time Seen by Provider: 03/16/24 16:02 Source: EMS Mode of arrival: EMS Limitations: altered mental status - History of Present Illness Initial Comments: This patient is a 63-year-old woman brought to have evaluation related to suspected ground-level fall. History from EMS who states that the patient's roommate called them. The patient reported to have history of taking extra do ses of her prescription medications, usually Seroquel. EMS found patient to be somewhat sedated. On arrival, patient somnolent and not providing much history. MD Complaint: fall -: unknown Fall From: standing When Fall Occurred: unsure Fall Witnessed: yes, by bystander Place Fall Occurred: home Loss of Consciousness: unsure Prolonged Down Time?: unclear Severity: mild Context: history of frequent falls Associated Symptoms: denies - Related Data Home Medications Medication Instructions Recorded Confirmed Tamsulosin [Flomax] 0.4 mg PO DAILY 03/22/24 03/22/24 Zolpidem [Ambien] 10 mg PO HS 03/22/24 03/22/24 hydrOXYzine pamoate [Vistaril] 100 mg PO DIRECTED 03/22/24 03/22/24 lamoTRIgine [LaMICtal] 100 mg PO HS 03/22/24 03/22/24 tiZANidine [Zanaflex] 4 mg PO BID PRN 03/22/24 03/22/24 Previous Rx's Medication Instructions Recorded Aspirin 81 mg PO DAILY tab 03/26/24 Lurasidone [Latuda] 40 mg PO HS #30 tab 03/26/24 Allergies Allergy/AdvReac Type Severity Reaction Status Date / Time Penicillins Allergy Unknown Rash/Hives/Itching Verified 03/22/24 09:37 all over body Review of Systems ROS Statement: Those systems with pertinent positive or pertinent negative responses have been documented in the HPI. ROS Other: All systems not noted in ROS Statement are negative. Limitations: ROS unobtainable due to patients medical condition Respiratory: Denies: dyspnea Cardiovascular: Denies: chest pain Gastrointestinal: Denies: abdominal pain Neurological: Reports: headache Past Medical History Past Medical History: Hyperlipidemia, Hypertension Additional Past Medical History / Comment(s): occ migraines, hemorrhoids, degenerative disks L4 and L5 History of Any Multi-Drug Resistant Organisms: None Reported Past Surgical History: Appendectomy, Section, Orthopedic Surgery Additional Past Surgical History / Comment(s): LEFT ARM (POST TRAUMATIC INJURY) reattached, RIGHT FOOT X3, LEFT KNEE ARTHROSCOPY, left oophorectomy, hemorroidectomy Past Anesthesia/Blood Transfusion Reactions: No Reported Reaction Past Psychological History: Anxiety, Bipolar, Depression, Panic Disorder Smoking Status: Current every day smoker Past Alcohol Use History: None Reported Past Drug Use History: None Reported - Past Family History Mother Family Medical History: No Reported History General Exam Limitations: no limitations General appearance: alert, in no apparent distress, appears intoxicated Head exam: Present: atraumatic, normocephalic Eye exam: Present: PERRL, nystagmus. Absent: scleral icterus, conjunctival injection ENT exam: Present: mucous membranes dry Neck exam: Present: normal inspection. Absent: tenderness Respiratory exam: Present: normal lung sounds bilaterally. Absent: respiratory distress, wheezes, rales, rhonchi, stridor, chest wall tenderness, accessory mus ele use Cardiovascular Exam: Present: regular rate, normal rhythm, normal heart sounds. Absent: systolic murmur, diastolic murmur, rubs, gallop GI/Abdominal exam: Present: soft. Absent: distended, tenderness, guarding Extremities exam: Present: full ROM, normal capillary refill. Absent: tenderness Back exam: Present: normal inspection. Absent: vertebral tenderness Neurological exam: Present: altered, CN II-XII intact. Absent: motor sensory deficit Skin exam: Present: warm, dry, intact, other (The patient does have multiple contusions of different ages.). Absent: rash Course Vital Signs 03/16/24 03/16/24 03/16/24 16:05 17:47 19:04 Temperature 97.9 F 97.5 F L Pulse Rate 98 81 Respiratory 16 16 Rate Blood Pressure 169/110 140/110 144/91 O2 Sat by Pulse 95 Oximetry 03/16/24 03/16/24 21:44 23:09 Temperature Pulse Rate 66 74 Respiratory 18 16 Rate Blood Pressure 132/75 146/80 O2 Sat by Pulse 100 95 Oximetry Medical Decision Making - Medical Decision Making The patient had CT of the brain that I interpreted as negative for acute bony injury, negative for acute intracranial hemorrhage Was pt. sent in by a medical professional or institution (, PA, HISTOLOGIST TECHNOLOGIST, urgent care, hospital, or [place] [facility]...) When possible be specific @ -[No] Did you speak to anyone other than the patient for history (EMS, parent, family, police, friend...)? What history was obtained from this source @ -[No] Did you review nursing and triage notes (agree or disagree)? Why? @ -[I reviewed and agree with nursing and triage notes] Were old charts reviewed (outside hosp., previous admission, EMS record, old EKG, old radiological studies, urgent care reports/EKG's, [place] [facility] records)? Report findings @ -[No old charts were reviewed] Differential Diagnosis (chest pain, altered mental status, abdominal pain women, abdominal pain men, vaginal bleeding, weakness, fever, dyspnea, syncope, h eadache, dizziness, GI bleed, back pain, seizure, CVA, palpatations, mental health, musculoskeletal)? @ -[Differential Headache: Migraine, tension, cluster, carbon monoxide, central venous thrombosis, pension karma temporal arteritis, acute closure glaucoma, intercranial hemorrhage, mastoiditis, sinusitis, head injury, this is not meant to be an all-inclusive list. EKG interpreted by me (3pts min.). @ -[I interpreted as above] X-rays interpreted by me (1pt min.). @ -[None done] CT interpreted by me (1pt min.). @ -[I interpreted as above U/S interpreted by me (1pt. min.). @ -[None done] What testing was considered but not performed or refused? (CT, X-rays, U/S, labs)? Why? @ -[None] What meds were considered but not given or refused? Why? @ -[None] Did you discuss the management of the patient with other professionals (professionals i.e. , PA, HISTOLOGIST TECHNOLOGIST, lab, RT, psych nurse, social sciences chair, supervisor blasting, teacher, sea air land officer, family preservation caseworker)? Give summary @ -[No] Was smoking cessation discussed for >3mins.? @ -[No] Was critical care preformed (if so, how long)? @ -[No] Were there social determinants of health that impacted care today? How? (Homelessness, low income, unemployed, alcoholism, drug addiction, transportation, low edu. Level, literacy, decrease access to med. care, intermediate, rehab)? @ -[No] Was there de-escalation of care discussed even if they declined (Discuss DNR or withdrawal of care, Hospice)? DNR status @ -[No] What co-morbidities impacted this encounter? (DM, HTN, Smoking, COPD, CAD, Cancer, CVA, ARF, Chemo, Hep., AIDS, mental health diagnosis, sleep apnea, morbid obesity)? @ -[None] Was patient admitted / discharged? Hospital course, mention meds given and route, prescriptions, significant lab abnormalities, going to OR and other pertinent info. @ -[Patient is a 63-year-old woman here to have evaluation after suspected ground-level fall. On the evaluation, she is somnolent in the neurologic exam is not entirely reliable due to suspected overdose of her prescription medications. The patient therefore had CT of the brain. Following this the p atient observed for short period she was more alert and wanted to go home. She does appear to be stable to continue. Patient warned to stick to prescribed dosages. Undiagnosed new problem with uncertain prognosis? @ -[No] Drug Therapy requiring intensive monitoring for toxicity (Heparin, Nitro, I nsulin, Cardizem)? @ -[No] Were any procedures done? @ -[No] Diagnosis/symptom? @ -[ Acute fall injury Prescription medication overuse Acute, or Chronic, or Acute on Chronic? @ -[Acute Uncomplicated (without systemic symptoms) or Complicated (systemic symptoms)? @ -[Uncomplicated Side effects of treatment? @ -[No] Exacerbation, Progression, or Severe Exacerbation? @ -[No] Poses a threat to life or bodily function? How? (Chest pain, [place], [place], pneumonia, PE, COPD, DKA, ARF, appy, cholecystitis, CVA, Diverticulitis, Homicidal, Suicidal, threat to staff... and all critical care pts) @ -[No] - Lab Data Result diagrams: 03/16/24 16:35 03/16/24 16:35 Lab Results 03/16/24 03/16/24 03/16/24 Range/Units 16:35 16:35 16:35 WBC 9.0 (3.8-10.6) k/uL RBC 4.53 (3.80-5.40) m/uL Hgb 13.5 (11.4-16.0) gm/dL Hct 41.9 (34.0-46.0) % MCV 92.6 (80.0-100.0) fL MCH 29.9 (25.0-35.0) pg MCHC 32.3 (31.0-37.0) g/dL RDW 12.6 (11.5-15.5) % Plt Count 268 (150-450) k/uL MPV 7.9 Neutrophils % 64 % Lymphocytes % 28 % Monocytes % 5 % Eosinophils % 1 % Basophils % 0 % Neutrophils # 5.8 (1.3-7.7) k/uL Lymphocytes # 2.5 (1.0-4.8) k/uL Monocytes # 0.5 (0-1.0) k/uL Eosinophils # 0.1 (0-0.7) k/uL Basophils # 0.0 (0-0.2) k/uL Sodium 140 (137-145) mmol/L Potassium 3.3 L (3.5-5.1) mmol/L Chloride 107 (98-107) mmol/L Carbon Dioxide 27 (22-30) mmol/L Anion Gap 6 mmol/L BUN 16 (7-17) mg/dL Creatinine 0.68 (0.52-1.04) mg/dL Est GFR (CKD-EPI)AfAm >90 (>60 ml/min/1.73 sqM) Est GFR (CKD-EPI)NonAf >90 (>60 ml/min/1.73 sqM) Glucose 110 H (74-99) mg/dL Plasma Lactic Acid Marcelino 0.7 (0.7-2.0) mmol/L Calcium 9.9 (8.4-10.2) mg/dL Magnesium 1.6 (1.6-2.3) mg/dL Total Bilirubin 0.8 (0.2-1.3) mg/dL AST 33 (14-36) U/L ALT 15 (4-34) U/L Alkaline Phosphatase 136 H (38-126) U/L Creatine Kinase 203 H (30-135) U/L Troponin I (0.000-0.034) ng/mL Total Protein 7.6 (6.3-8.2) g/dL Albumin 4.7 (3.5-5.0) g/dL Serum Alcohol <10 mg/dL 03/16/24 Range/Units 16:35 WBC (3.8-10.6) k/uL RBC (3.80-5.40) m/uL Hgb (11.4-16.0) gm/dL Hct (34.0-46.0) % MCV (80.0-100.0) fL MCH (25.0-35.0) pg MCHC (31.0-37.0) g/dL RDW (11.5-15.5) % Plt Count (150-450) k/uL MPV Neutrophils % % Lymphocytes % % Monocytes % % Eosinophils % % Basophils % % Neutrophils # (1.3-7.7) k/uL Lymphocytes # (1.0-4.8) k/uL Monocytes # (0-1.0) k/uL Eosinophils # (0-0.7) k/uL Basophils # (0-0.2) k/uL Sodium (137-145) mmol/L Potassium (3.5-5.1) mmol/L Chloride (98-107) mmol/L Carbon Dioxide (22-30) mmol/L Anion Gap mmol/L BUN (7-17) mg/dL Creatinine (0.52-1.04) mg/dL Est GFR (CKD-EPI)AfAm (>60 ml/min/1.73 sqM) Est GFR (CKD-EPI)NonAf (>60 ml/min/1.73 sqM) Glucose (74-99) mg/dL Plasma Lactic Acid Marcelino (0.7-2.0) mmol/L Calcium (8.4-10.2) mg/dL Magnesium (1.6-2.3) mg/dL Total Bilirubin (0.2-1.3) mg/dL AST (14-36) U/L ALT (4-34) U/L Alkaline Phosphatase (38-126) U/L Creatine Kinase (30-135) U/L Troponin I <0.012 (0.000-0.034) ng/mL Total Protein (6.3-8.2) g/dL Albumin (3.5-5.0) g/dL Serum Alcohol mg/dL - EKG Data -: EKG Interpreted by Nv EKG shows normal: sinus rhythm, axis, intervals (Normal), QRS complexes (Incomplete right bundle branch block) Rate: tachycardia (Rate 102 bpm) Interpretation: nonspecific ST-T wave changes Disposition Clinical Impression: Fall Disposition: HOME SELF-CARE Condition: Good Instructions (If sedation given, give patient instructions): Fall Prevention for Older Adults (ED) Is patient prescribed a controlled substance at d/c from ED?: No Referrals: None,Stated [Primary Care Provider] - 1-2 days
[2024-03-16] MEDS: SODIUM CHLORIDE 0.9% 1,000 ML IV ONE (16:30)
[2024-03-16 16:54] LABS: Basophils % (A) 0 %; Eosinophils # (A) 0.1 k/uL (0-0.7); Eosinophils % (A) 1 %; HCT 41.9 % (34.0-46.0); HGB 13.5 gm/dL (11.4-16.0); Lymphocytes # (A) 2.5 k/uL (1.0-4.8); Lymphocytes % (A) 28 %; MCH 29.9 pg (25.0-35.0); MCHC 32.3 g/dL (31.0-37.0); MCV 92.6 fL (80.0-100.0); Mean Platelet Volume 7.9; Monocytes # (A) 0.5 k/uL (0-1.0); Monocytes % (A) 5 %; Neutrophils # (A) 5.8 k/uL (1.3-7.7); Neutrophils % (A) 64 %; Platelet Count 268 k/uL (150-450); RBC 4.53 m/uL (3.80-5.40); RDW 12.6 % (11.5-15.5)
[2024-03-16] MEDS: cloNIDine HCL 0.2 MG TAB PO STA (17:10)
[2024-03-16 17:14] LABS: ALT 15 U/L (4-34); AST 33 U/L (14-36); African American GFR (CKD) >90 (>60 ml/min/1.73 sqM); Albumin 4.7 g/dL (3.5-5.0); Alcohol <10 mg/dL; Alkaline Phosphatase 136 U/L (38-126); Anion Gap 6 mmol/L; Blood Urea Nitrogen 16 mg/dL (7-17); Calcium 9.9 mg/dL (8.4-10.2); Carbon Dioxide 27 mmol/L (22-30); Chloride 107 mmol/L (98-107); Creatine Kinase 203 U/L (30-135); Glucose 110 mg/dL (74-99); Magnesium 1.6 mg/dL (1.6-2.3); Non-African American GFR(CKD) >90 (>60 ml/min/1.73 sqM); Potassium 3.3 mmol/L (3.5-5.1); Sodium 140 mmol/L (137-145); Total Bilirubin 0.8 mg/dL (0.2-1.3); Total Protein 7.6 g/dL (6.3-8.2)
[2024-03-16 19:07] VITALS: TEMP 97.5
[2024-03-16] MEDS: POTASSIUM CHLORIDE ER 20 MEQ TAB.ER PO STA (19:17)
--- NOTE | 2024-03-16 20:11 | CT ---
EXAMINATION TYPE: CT brain wo con CT DLP: 1129.3 mGycm, Automated exposure control for dose reduction was used. DATE OF EXAM: 03/16/2024 7:43 PM COMPARISON: 01/24/2017. CLINICAL INDICATION:Female, 63 years old with history of fall injury, ams, htn TECHNIQUE: Brain: Axial CT images of the brain were obtained with coronal and sagittal reformats created and rev iewed. Contrast used: None. Oral contrast used: None. FINDINGS: Brain: Extra-axial spaces: No abnormal extra-axial fluid collections. Ventricular system: Dilatation in proportion to cerebral atrophy. Cerebral parenchyma: Cerebral atrophy. No acute intraparenchymal hemorrhage or mass effect. The fay -white junction is well differentiated. Cerebellum: Unremarkable. Mass effect: No evidence of midline shift. Intracranial vasculature: Atherosclerotic calcifications of the intracranial vessels. Soft tissues: Normal. Calvarium/osseous structures: No depressed skull fracture. Paranasal sinuses and mastoid air cells: Mild scattered paranasal sinus disease. Visualized orbits: Orbital contents are intact. IMPRESSION: 1. No acute intracranial process. 2. Nonspecific white matter changes, likely secondary to chronic small vessel ischemic disease.
[2024-03-16 23:15] VITALS: BP 146/80; PULSE 74; RESP 16
== END 2024-03-16 23:30 | disposition home or self-care (01) ==
LOC: EC 15:58
DX: T50.901A Poisoning by unspecified drugs, medicaments and biological substances, accidental (unintentional), initial encounter (principal); Z88.0 Allergy status to penicillin; F17.200 Nicotine dependence, unspecified, uncomplicated; W18.30XA Fall on same level, unspecified, initial encounter
CPT/HCPCS: 36415; 93005; 80053; 82550; 83605; 83735; 84484; 85025; 70450; 99285; 96360; G0480; 80320

== ENCOUNTER 2024-03-22 07:20 | Inpatient (IN) | payer MEDICARE, OTHER ==
--- NOTE | 2024-03-22 07:48 | ED ---
General Adult HPI - General Chief complaint: Altered Mental Status Stated complaint: AMS Time Seen by Provider: 03/22/24 07:20 Source: patient, EMS, RN notes reviewed, old records reviewed Mode of arrival: EMS Limitations: altered mental status - History of Present Illness Initial comments: This is a 63-year-old female who presents to the emergency department for altered mental status. Patient was recently in the hospital and discharged home according to the person she lives as the patient fell hit her head a few days ago and woke up this morning and she was altered. Patient herself is a very poor historian not complaining of anything except that she had a has a headache. Patient denies any neck pain patient denies any chest pain difficulty breathing shortness of breath patient has any fever chills. - Related Data Home Medications Medication Instructions Recorded Confirmed Benztropine Mesylate [Cogentin] 1 mg PO BID 03/22/24 03/22/24 QUEtiapine [SEROquel] 100 mg PO HS 03/22/24 03/22/24 Tamsulosin [Flomax] 0.4 mg PO DAILY 03/22/24 03/22/24 Zolpidem [Ambien] 10 mg PO HS 03/22/24 03/22/24 cloNIDine HCL [Catapres] 0.3 mg PO HS 03/22/24 03/22/24 hydrOXYzine pamoate [Vistaril] 100 mg PO DIRECTED 03/22/24 03/22/24 lamoTRIgine [LaMICtal] 100 mg PO HS 03/22/24 03/22/24 tiZANidine [Zanaflex] 4 mg PO BID PRN 03/22/24 03/22/24 Allergies Allergy/AdvReac Type Severity Reaction Status Date / Time Penicillins Allergy Unknown Rash/Hives/Itching Verified 03/22/24 09:37 all over body Review of Systems ROS Statement: Those systems with pertinent positive or pertinent negative responses have been documented in the HPI. ROS Other: All systems not noted in ROS Statement are negative. Past Medical History Past Medical History: Hyperlipidemia, Hypertension Additional Past Medical History / Comment(s): occ migraines, hemorrhoids, degenerative disks L4 and L5 History of Any Multi-Drug Resistant Organisms: None Reported Past Surgical History: Appendectomy, Section, Orthopedic Surgery Additional Past Surgical History / Comment(s): LEFT ARM (POST TRAUMATIC INJURY) reattached, RIGHT FOOT X3, LEFT KNEE ARTHROSCOPY, left oophorectomy, hemorroidectomy Past Anesthesia/Blood Transfusion Reactions: No Reported Reaction Past Psychological History: Anxiety, Bipolar, Depression, Panic Disorder Smoking Status: Current every day smoker Past Alcohol Use History: None Reported Past Drug Use History: None Reported - Past Family History Mother Family Medical History: No Reported History General Exam - General Exam Comments Initial Comments: GENERAL: Patient is well-developed and well-nourished. Patient is nontoxic and well- hydrated and is in mild distress. ENT: Neck is soft and supple. No significant lymphadenopathy is noted. Oropharynx is clear. Moist mucous membranes. Neck has full range of motion without eliciting any pain. Patient has a contusion over the left eye EYES: The sclera were anicteric and conjunctiva were pink and moist. Extraocular movements were intact and pupils were equal round and reactive to light. Eyelids were unremarkable. PULMONARY: Unlabored respirations. Good breath sounds bilaterally. No audible rales rhonchi or wheezing was noted. CARDIOVASCULAR: There is a regular rate and rhythm without any murmurs gallops or rubs. ABDOMEN: Soft and nontender with normal bowel sounds. SKIN: Skin is clear with no lesions or rashes and otherwise unremarkable. NEUROLOGIC: Patient is alert and oriented x3. Cranial nerves II through XII are grossly intact. Motor and sensory are also intact. Normal speech, volume and content. Symmetrical smile. MUSCULOSKELETAL: Normal extremities with adequate strength and full range of motion. LYMPHATICS: No significant lymphadenopathy is noted PSYCHIATRIC: Normal psychiatric evaluation. Limitations: altered mental status Course Vital Signs 03/22/24 03/22/24 07:23 09:39 Temperature 98.2 F Pulse Rate 122 H 108 H Respiratory 20 18 Rate Blood Pressure 175/102 191/101 O2 Sat by Pulse 99 97 Oximetry Medical Decision Making - Medical Decision Making EKG is interpreted by myself. EKG shows a sinus tachycardia at 120 bpm SC of 158 QRS is 83 QT interval is 425 QTc is 496. Patient's EKG shows no ST segment elevation Was pt. sent in by a medical professional or institution (, PA, HELICOPTER REPAIRER, urgent care, hospital, or correction...) When possible be specific @ -No Did you speak to anyone other than the patient for history (EMS, parent, family, police, friend...)? What history was obtained from this source @ -EMS gave us all of the history that they had from the person who called them. Did you review nursing and triage notes (agree or disagree)? Why? @ -I reviewed and agree with nursing and triage notes Were old charts reviewed (outside hosp., previous admission, EMS record, old EKG, old radiological studies, urgent care reports/EKG's, correction records)? Report findings @ -Today's CAT scan was compared to the old CAT scan from the previous visit there were no acute changes noted Differential Diagnosis? @ -Differential Altered Mental Status: Hypoglycemia, DKA, hypercapnia, ETOH, overdose, CO poisoning, trauma, myxedema coma, HTN encephalopathy, infection, encephalitis, psychosis, intercranial hemorrhage, hepatic encephalopathy, meningitis, CVA, this is not meant to be an all-inclusive list EKG interpreted by me (3pts min.). @ -As above X-rays interpreted by me (1pt min.). @ -Chest x-ray shows no acute abnormality CT interpreted by me (1pt min.). @ -CT of the brain and CT of the C-spine showed no acute abnormality U/S interpreted by me (1pt. min.). @ -None done What testing was considered but not performed or refused? (CT, X-rays, U/S, labs)? Why? @ -None What meds were considered but not given or refused? Why? @ -None Did you discuss the management of the patient with other professionals (professionals i.e. , PA, HELICOPTER REPAIRER, lab, RT, psych nurse, psychotherapist social worker, healthcare or medical, teacher, admissions officer, supportive employment case manager)? Give summary @ -Spoke with Dr. Mosquera he agreed to admit the patient I admitted the patient wrote admitting orders Was smoking cessation discussed for >3mins.? @ -No Was critical care preformed (if so, how long)? @ -No Were there social determinants of health that impacted care today? How? (Homeles sness, low income, unemployed, alcoholism, drug addiction, transportation, low edu. Level, literacy, decrease access to med. care, halfway, rehab)? @ -No Was there de-escalation of care discussed even if they declined (Discuss DNR or withdrawal of care, Hospice)? DNR status @ -No What co-morbidities impacted this encounter? (DM, HTN, Smoking, COPD, CAD, Cancer, CVA, ARF, Chemo, Hep., AIDS, mental health diagnosis, sleep apnea, morbid obesity)? @ -None Was patient admitted / discharged? Hospital course, mention meds given and route, prescriptions, significant lab abnormalities, going to OR and other pertinent info. @ -Patient's blood pressure was mildly elevated give the patient hydralazine patient also had a low potassium I gave her K-Dur 40 equivalents. Patient then started complaining of some chest pain so she will we will be admitted troponins will be repeated I also added an ammonia level because Dr. Mosquera indicated she was a drinker. Undiagnosed new problem with uncertain prognosis? @ -No Drug Therapy requiring intensive monitoring for toxicity (Heparin, Nitro, Insulin, Cardizem)? @ -No Were any procedures done? @ -No Diagnosis/symptom? @ -Altered mental status Acute, or Chronic, or Acute on Chronic? @ -Acute Uncomplicated (without systemic symptoms) or Complicated (systemic symptoms)? @ -Complicated Side effects of treatment? @ -No Exacerbation, Progression, or Severe Exacerbation? @ -No Poses a threat to life or bodily function? How? (Chest pain, [place], NH, pneumonia, PE, COPD, DKA, ARF, appy, cholecystitis, CVA, Diverticulitis, Homicidal, Suicidal, threat to staff... and all critical care pts) @ -No Diagnosis/symptom? @ -Hypokalemia Acute, or Chronic, or Acute on Chronic? @ -Acute Uncomplicated (without systemic symptoms) or Complicated (systemic symptoms)? @ -Uncomplicated Side effects of treatment? @ -None Exacerbation, Progression, or Severe Exacerbation] @ -No Poses a threat to life or bodily function? @ -No Diagnosis/symptom? @ -Chest pain Acute, or Chronic, or Acute on Chronic? @ -Acute Uncomplicated (without systemic symptoms) or Complicated (systemic symptoms)? @ -Complicated Side effects of treatment? @ -None Exacerbation, Progression, or Severe Exacerbation] @ -No Poses a threat to life or bodily function? @ -No Diagnosis/symptom? @ -Hypertension Acute, or Chronic, or Acute on Chronic? @ -Acute Uncomplicated (without systemic symptoms) or Complicated (systemic symptoms)? @ -Complicated Side effects of treatment? @ -None Exacerbation, Progression, or Severe Exacerbation] @ -No Poses a threat to life or bodily function? @ -No - Lab Data Result diagrams: 03/22/24 08:01 03/22/24 08:01 Lab Results 03/22/24 03/22/24 03/22/24 Range/Units 07:50 08:01 08:01 WBC 15.6 H (3.8-10.6) k/uL RBC 4.46 (3.80-5.40) m/uL Hgb 13.3 (11.4-16.0) gm/dL Hct 41.0 (34.0-46.0) % MCV 91.9 (80.0-100.0) fL MCH 29.9 (25.0-35.0) pg MCHC 32.5 (31.0-37.0) g/dL RDW 12.9 (11.5-15.5) % Plt Count 345 (150-450) k/uL MPV 8.1 Neutrophils % 84 % Lymphocytes % 11 % Monocytes % 3 % Eosinophils % 1 % Basophils % 0 % Neutrophils # 13.1 H (1.3-7.7) k/uL Lymphocytes # 1.8 (1.0-4.8) k/uL Monocytes # 0.5 (0-1.0) k/uL Eosinophils # 0.1 (0-0.7) k/uL Basophils # 0.0 (0-0.2) k/uL PT 11.0 (10.0-12.5) sec INR 1.0 (<1.2) APTT 23.8 (22.0-30.0) sec Sodium (137-145) mmol/L Potassium (3.5-5.1) mmol/L Chloride (98-107) mmol/L Carbon Dioxide (22-30) mmol/L Anion Gap mmol/L BUN (7-17) mg/dL Creatinine (0.52-1.04) mg/dL Est GFR (CKD-EPI)AfAm (>60 ml/min/1.73 sqM) Est GFR (CKD-EPI)NonAf (>60 ml/min/1.73 sqM) Glucose (74-99) mg/dL POC Glucose (mg/dL) 151 H (70-110) mg/dL POC Glu Textile Converter ID Ilana Renay Calcium (8.4-10.2) mg/dL Total Bilirubin (0.2-1.3) mg/dL AST (14-36) U/L ALT (4-34) U/L Alkaline Phosphatase (38-126) U/L Troponin I (0.000-0.034) ng/mL Total Protein (6.3-8.2) g/dL Albumin (3.5-5.0) g/dL Urine Color Urine Appearance (Clear) Urine pH (5.0-8.0) Ur Specific [place] (1.001-1.035) Urine Protein (Negative) Urine Glucose (UA) (Negative) Urine Ketones (Negative) Urine Blood (Negative) Urine Nitrite (Negative) Urine Bilirubin (Negative) Urine Urobilinogen (<2.0) mg/dL Ur Leukocyte Esterase (Negative) Urine RBC (0-5) /hpf Urine WBC (0-5) /hpf Ur Squamous Epith Cells (0-4) /hpf Urine Bacteria (None) /hpf Urine Mucus (None) /hpf Urine Opiates Screen (NotDetected) Ur Oxycodone Screen (NotDetected) Urine Methadone Screen (NotDetected) Ur Barbiturates Screen (NotDetected) U Tricyclic Antidepress (NotDetected) Ur Phencyclidine Scrn (NotDetected) Ur Amphetamines Screen (NotDetected) U Methamphetamines Scrn (NotDetected) U Benzodiazepines Scrn (NotDetected) Urine Cocaine Screen (NotDetected) U Marijuana (THC) Screen (NotDetected) 03/22/24 03/22/24 03/22/24 Range/Units 08:01 08:01 08:01 WBC (3.8-10.6) k/uL RBC (3.80-5.40) m/uL Hgb (11.4-16.0) gm/dL Hct (34.0-46.0) % MCV (80.0-100.0) fL MCH (25.0-35.0) pg MCHC (31.0-37.0) g/dL RDW (11.5-15.5) % Plt Count (150-450) k/uL MPV Neutrophils % % Lymphocytes % % Monocytes % % Eosinophils % % Basophils % % Neutrophils # (1.3-7.7) k/uL Lymphocytes # (1.0-4.8) k/uL Monocytes # (0-1.0) k/uL Eosinophils # (0-0.7) k/uL Basophils # (0-0.2) k/uL PT (10.0-12.5) sec INR (<1.2) APTT (22.0-30.0) sec Sodium 138 (137-145) mmol/L Potassium 3.3 L (3.5-5.1) mmol/L Chloride 104 (98-107) mmol/L Carbon Dioxide 24 (22-30) mmol/L Anion Gap 10 mmol/L BUN 7 (7-17) mg/dL Creatinine 0.53 (0.52-1.04) mg/dL Est GFR (CKD-EPI)AfAm >90 (>60 ml/min/1.73 sqM) Est GFR (CKD-EPI)NonAf >90 (>60 ml/min/1.73 sqM) Glucose 157 H (74-99) mg/dL POC Glucose (mg/dL) (70-110) mg/dL POC Glu Textile Converter ID Calcium 9.8 (8.4-10.2) mg/dL Total Bilirubin 0.7 (0.2-1.3) mg/dL AST 27 (14-36) U/L ALT 16 (4-34) U/L Alkaline Phosphatase 148 H (38-126) U/L Troponin I <0.012 (0.000-0.034) ng/mL Total Protein 7.6 (6.3-8.2) g/dL Albumin 4.6 (3.5-5.0) g/dL Urine Color Colorless Urine Appearance Clear (Clear) Urine pH 6.5 (5.0-8.0) Ur Specific [place] 1.004 (1.001-1.035) Urine Protein Negative (Negative) Urine Glucose (UA) Negative (Negative) Urine Ketones Negative (Negative) Urine Blood Trace H (Negative) Urine Nitrite Negative (Negative) Urine Bilirubin Negative (Negative) Urine Urobilinogen <2.0 (<2.0) mg/dL Ur Leukocyte Esterase Negative (Negative) Urine RBC <1 (0-5) /hpf Urine WBC 1 (0-5) /hpf Ur Squamous Epith Cells <1 (0-4) /hpf Urine Bacteria Occasional H (None) /hpf Urine Mucus Few H (None) /hpf Urine Opiates Screen Not Detected (NotDetected) Ur Oxycodone Screen Not Detected (NotDetected) Urine Methadone Screen Not Detected (NotDetected) Ur Barbiturates Screen Not Detected (NotDetected) U Tricyclic Antidepress Not Detected (NotDetected) Ur Phencyclidine Scrn Not Detected (NotDetected) Ur Amphetamines Screen Not Detected (NotDetected) U Methamphetamines Scrn Not Detected (NotDetected) U Benzodiazepines Scrn Not Detected (NotDetected) Urine Cocaine Screen Not Detected (NotDetected) U Marijuana (THC) Screen Not Detected (NotDetected) Disposition Clinical Impression: Altered mental status, Chest pain, Fall, Hypokalemia, Hypertension Disposition: ADMITTED IP TO THIS HOSP Referrals: None,Stated [Primary Care Provider] - 1-2 days Time of Disposition: 10:32
[2024-03-22 07:52] LABS: Glucose,Whole Blood 151 mg/dL (70-110)
[2024-03-22] MEDS: SODIUM CHLORIDE 0.9% 500 ML 500 ML IV ONE (08:04)
[2024-03-22] MEDS: ONDANSETRON 4 MG/2 ML VIAL IVP STA (08:10)
[2024-03-22 08:12] LABS: Basophils % (A) 0 %; Eosinophils # (A) 0.1 k/uL (0-0.7); Eosinophils % (A) 1 %; HGB 13.3 gm/dL (11.4-16.0); Lymphocytes # (A) 1.8 k/uL (1.0-4.8); Lymphocytes % (A) 11 %; MCH 29.9 pg (25.0-35.0); MCHC 32.5 g/dL (31.0-37.0); MCV 91.9 fL (80.0-100.0); Mean Platelet Volume 8.1; Monocytes # (A) 0.5 k/uL (0-1.0); Monocytes % (A) 3 %; Neutrophils # (A) 13.1 k/uL (1.3-7.7); Neutrophils % (A) 84 %; Platelet Count 345 k/uL (150-450); RBC 4.46 m/uL (3.80-5.40); RDW 12.9 % (11.5-15.5); WBC 15.6 k/uL (3.8-10.6)
[2024-03-22 08:18] LABS: Partial Thromboplastin Time 23.8 sec (22.0-30.0)
[2024-03-22 08:27] LABS: ALT 16 U/L (4-34); AST 27 U/L (14-36); African American GFR (CKD) >90 (>60 ml/min/1.73 sqM); Albumin 4.6 g/dL (3.5-5.0); Alkaline Phosphatase 148 U/L (38-126); Anion Gap 10 mmol/L; Blood Urea Nitrogen 7 mg/dL (7-17); Calcium 9.8 mg/dL (8.4-10.2); Carbon Dioxide 24 mmol/L (22-30); Chloride 104 mmol/L (98-107); Glucose 157 mg/dL (74-99); Non-African American GFR(CKD) >90 (>60 ml/min/1.73 sqM); Potassium 3.3 mmol/L (3.5-5.1); Sodium 138 mmol/L (137-145); Total Bilirubin 0.7 mg/dL (0.2-1.3); Total Protein 7.6 g/dL (6.3-8.2)
--- NOTE | 2024-03-22 08:55 | CT ---
EXAMINATION TYPE: CT brain cspine wo con CT DLP: 1239.4 mGycm, Automated exposure control for dose reduction was used. DATE OF EXAM: 03/22/2024 8:36 AM COMPARISON: None. CLINICAL INDICATION:Female, 63 years old with history of Trauma; Fall and AMS TECHNIQUE: Brain: Multiple axial CT images of the brain were obtained without IV contrast. Cspine: Axial CT images from the skull base to the inferior aspect of T2 we obtained without intraven ous contrast. Coronal and sagittal reformatted images were also reviewed. . FINDINGS: Brain: Extra-axial spaces: No abnormal extra-axial fluid collections. Ventricular system: Within normal limits Cerebral parenchyma: No acute intraparenchymal hemorrhage or mass effect. The fay-white junction is well differentiated. Cerebellum: Unremarkable. Mass effect: No evidence of midline shift. Intracranial vasculature: unremarkable Soft tissues: Normal. Calvarium/osseous structures: No depressed skull fracture. Paranasal sinuses and mastoid air cells: Clear. Visualized orbits: Orbital contents are intact. Cervical spine: Fracture: None. Osseous structures: Multilevel degenerative disc disease changes with endplate spurring and disc oste ophyte complex's. Vertebral alignment: Within normal limits. Spinal canal/Neural Foramina: No evidence of significant spinal canal narrowing. Facet joint uncovert ebral joint arthropathy scattered throughout the cervical spine with varying degrees of neural forami nal stenosis. Neck soft tissues: Prevertebral soft tissues are within normal limits. Other: The airway is patent. The lung apices are clear. IMPRESSION: 1. No acute intracranial process. 2. No evidence of cervical spine fracture. 3. Mild to moderate multilevel degenerative disc disease.
--- NOTE | 2024-03-22 09:50 | XR ---
EXAMINATION TYPE: XR chest 2V DATE OF EXAM: 03/22/2024 COMPARISON: 09/08/2023 INDICATION: Altered mental status, fall TECHNIQUE: Frontal and lateral views of the chest are obtained. FINDINGS: The heart size is normal. The pulmonary vasculature is normal. The lungs are clear. No pneumothorax is evident. No displaced rib fractures identified. IMPRESSION: 1. No acute pulmonary process.
[2024-03-22 09:52] LABS: Appearance,Urine Clear (Clear); Bacteria,Urine Occasional /hpf; Bilirubin,Urine Negative (Negative); Blood,Urine Trace (Negative); Color,Urine Colorless; Glucose,Urine (UA) Negative (Negative); Ketones,Urine Negative (Negative); Leukocyte Esterase,Urine Negative (Negative); Mucus,Urine Few /hpf; Nitrite,Urine Negative (Negative); PH, Urine 6.5 (5.0-8.0); Protein,Urine Negative (Negative); RBC,Urine <1 /hpf (0-5); Specific Gravity,Urine 1.004 (1.001-1.035); Squamous Epithelial Cell,Urine <1 /hpf (0-4); Urobilinogen,Urine <2.0 mg/dL (<2.0); WBC,Urine 1 /hpf (0-5)
[2024-03-22 09:53] LABS: Amphetamine Screen,Urine Not Detected (NotDetected); Barbiturate Screen,Urine Not Detected (NotDetected); Benzodiazepines Screen,Urine Not Detected (NotDetected); Cocaine Screen,Urine Not Detected (NotDetected); Methadone Screen, Urine Not Detected (NotDetected); Opiate Screen,Urine Not Detected (NotDetected); Oxycodone Screen, Urine Not Detected (NotDetected); Phencyclidine Screen,Urine Not Detected (NotDetected); Tricyclic Antidepressant,Urine Not Detected (NotDetected); Urn Cannabinoid Scrn Not Detected (NotDetected)
[2024-03-22] MEDS: hydrALAZINE HCL 20 MG/ML 1 ML VIAL IVP STA (10:26)
[2024-03-22] MEDS: POTASSIUM CHLORIDE ER 20 MEQ TAB.ER PO STA (10:26)
[2024-03-22] MEDS ORDERED: NITROGLYCERIN SL TABS 0.4 MG TAB SUBLINGUAL PRN (10:32)
[2024-03-22] MEDS: ASPIRIN 81 MG PO STA (10:44)
[2024-03-22] MEDS: KETOROLAC 15 MG/ML 1 ML VIAL IVP STA (12:10)
[2024-03-22] MEDS: NITROGLYCERIN OINT 1 INCH/GM PACKET TOPICAL SCH (12:10)
[2024-03-22] MEDS: LORazepam 2 MG/ML INJ IV STA (14:24)
--- NOTE | 2024-03-22 17:28 | CT ---
CTA CHEST EXAMINATION TYPE: CT angio chest DATE OF EXAM: 03/22/2024 INDICATION: Elevated D-dimer. CT DLP: 268 mGycm, Automated exposure control for dose reduction was used. CONTRAST: Patient injected with 100 ml mL of Isovue 370. COMPARISON: None TECHNIQUE: CT of the chest is performed on a spiral scan at 2 mm thick sections. Study is performed with intravenous contrast timed for evaluation for pulmonary embolism. This will limit additional po rtions of the evaluation. 3-D MIP images reconstructed by the technologist are reviewed on the compu ter in the coronal and sagittal planes. FINDINGS: No persistent filling defects are evident to suggest an acute pulmonary embolism. No mediastinal or hilar adenopathy enlarged by CT criteria is evident. The ascending aorta diameter at the level of the main pulmonary artery is 3.2 cm. The main pulmonary artery diameter at the bifurcation is 2.4 cm. There is a small hernia present. There is a small groundglass opacity within the right upper lung field. Series 406 image 43. Short-te rm follow-up in 6 months is recommended. Some emphysematous changes are noted Limited CT sections were through the upper abdomen. Upper abdomen appears unremarkable. IMPRESSION: 1. No acute pulmonary embolism. 2. Groundglass opacity right upper lobe. Follow-up 6 months is recommended.
[2024-03-22] MEDS: hydrOXYzine pamoate 25 MG CAP PO PRN (17:53)
[2024-03-22] MEDS: cloNIDine HCL 0.1 MG TAB PO SCH (20:58)
[2024-03-22] MEDS: BENZTROPINE MESYLATE 1 MG TAB PO SCH (20:58)
[2024-03-22] MEDS: QUEtiapine 100 MG TAB PO SCH (20:58)
[2024-03-22] MEDS: ZOLPIDEM 5 MG TAB PO SCH (20:59)
[2024-03-22] MEDS: lamoTRIgine 100 MG TAB PO SCH (20:59)
[2024-03-22] MEDS ORDERED: cloNIDine HCL 0.1 MG TAB PO SCH (21:00)
[2024-03-22] MEDS: ALPRAZolam 0.25 MG TAB PO PRN (21:01)
[2024-03-23] MEDS ORDERED: DOBUTamine DRIP for NUC MED 500 MG/250 ML BAG IV ONE (08:00)
[2024-03-23] MEDS: ASPIRIN 325 MG TAB PO SCH (09:13)
[2024-03-23] MEDS: PANTOPRAZOLE 40 MG/10 ML VIAL IVP SCH (09:13)
[2024-03-23] MEDS: ACETAMINOPHEN TAB 325 MG TAB PO PRN (09:30)
[2024-03-23 09:34] LABS: HCT 37.7 % (34.0-46.0); HGB 12.3 gm/dL (11.4-16.0); MCH 30.9 pg (25.0-35.0); MCHC 32.6 g/dL (31.0-37.0); MCV 94.8 fL (80.0-100.0); Mean Platelet Volume 8.3; Platelet Count 304 k/uL (150-450); RBC 3.98 m/uL (3.80-5.40); RDW 12.8 % (11.5-15.5); WBC 6.8 k/uL (3.8-10.6)
[2024-03-23 09:51] LABS: Appearance,Urine Clear (Clear); Bilirubin,Urine Negative (Negative); Blood,Urine Trace (Negative); Color,Urine Colorless; Glucose,Urine (UA) Negative (Negative); Ketones,Urine Negative (Negative); Leukocyte Esterase,Urine Negative (Negative); Mucus,Urine Occasional /hpf; Nitrite,Urine Negative (Negative); PH, Urine 6.5 (5.0-8.0); Protein,Urine Negative (Negative); RBC,Urine 1 /hpf (0-5); Specific Gravity,Urine 1.019 (1.001-1.035); Squamous Epithelial Cell,Urine <1 /hpf (0-4); Urobilinogen,Urine <2.0 mg/dL (<2.0); WBC,Urine 4 /hpf (0-5)
[2024-03-23 10:00] LABS: African American GFR (CKD) >90 (>60 ml/min/1.73 sqM); Anion Gap 6 mmol/L; Blood Urea Nitrogen 8 mg/dL (7-17); Calcium 9.7 mg/dL (8.4-10.2); Carbon Dioxide 26 mmol/L (22-30); Chloride 107 mmol/L (98-107); Glucose 96 mg/dL (74-99); Magnesium 1.9 mg/dL (1.6-2.3); Non-African American GFR(CKD) >90 (>60 ml/min/1.73 sqM); Potassium 4.3 mmol/L (3.5-5.1); Sodium 139 mmol/L (137-145)
[2024-03-23] MEDS ORDERED: DOBUTamine DRIP for NUC MED 500 MG in DEXTROSE/WATER 1 250ML.BAG IV PRN (11:02)
[2024-03-23 11:40] LABS: LDL Cholesterol,Calculated 105.6 mg/dL (0.0-131.0)
--- NOTE | 2024-03-23 12:17 | P.CRDCN ---
History of Present Illness History of present illness: HISTORY OF PRESENT ILLNESS: This is a 63-year-old female with a past medical history significant for anxiety, bipolar disorder, and nicotine dependence. Patient does not follow with a processing manager. We have been asked to see the patient in consultation for chest pain. Patient examined at the bedside. Patient apparently was brought to the hospital for altered mental status. The patient does report that she fell down the stairs a few days ago and reports hitting her head. She did complain of having a headache this morning. The patient also reports she has been having chest pain on and off since yesterday. She denies any radiation of the pain. She states the pain is worse with chest wall palpation. She is unsure if she hit her chest when she fell down the stairs. DIAGNOSTICS: - EKG reveals sinus mechanism with T wave inversions in precordial leads. - Chest xray negative for acute process. - Chest CTA: Negative for pulmonary embolism. Groundglass opacity right upper lobe. - Laboratory data: WBC 6.8. Hemoglobin 12.3. Platelet count 304. Sodium 139. Potassium 4.3. BUN 8. Creatinine 0.66. Troponin negative x 3 - Current home cardiac medications include Catapres 0.3 mg at night. - Most recent echocardiogram obtained in August 2023 revealed ejection fraction 55 to 60%, mild MR, mild TR - Cardiac catheterization history: 2019 revealing normal coronary arteries REVIEW OF SYSTEMS: At the time of my exam: CONSTITUTIONAL: Denies fever or chills. HEENT: Denies blurred vision, vision changes, or eye pain. Denies hemoptysis CARDIOVASCULAR: Denies chest pain. Denies orthopnea. Denies PND. Denies palpitations RESPIRATORY: Denies shortness of breath. GASTROINTESTINAL: Denies abdominal pain. Denies nausea or vomiting. HEMATOLOGIC: Denies bleeding disorders. GENITOURINARY: Denies any blood in urine. SKIN: Denies pruitis. Denies rash. PHYSICAL EXAM: VITAL SIGNS: Reviewed. GENERAL: Well-developed in no acute distress. HEENT: Head is normocephalic. Pupils are equal, round. Sclerae anicteric. Mucous membranes of the mouth are moist. Neck supple. No JVD or thyromegaly LUNGS: Respirations even and unlabored. Lungs essentially clear to auscultation bilaterally. HEART: Regular rate and rhythm. S1 and S2 heard. ABDOMEN: Soft. Nondistended. Nontender. EXTREMITIES: Normal range of motion. No clubbing or cyanosis. Peripheral pulses intact. No lower extremity edema NEUROLOGIC: Awake and alert. Oriented x 3. ASSESSMENT: Status post mechanical fall down a flight of stairs Chest pain, appears musculoskeletal, however with new T wave inversions in precordial leads Anxiety Bipolar disorder Nicotine dependence PLAN: An acute coronary event has been ruled out Patient to undergo dobutamine stress echo today If negative, she may be discharged home from a cardiac standpoint Nurse practitioner note has been reviewed by physician. Signing provider agrees with the documented findings, assessment, and plan of care documented by VICE PRESIDENT OF BRAND MANAGEMENT as a scribe. Past Medical History Past Medical History: Hyperlipidemia, Hypertension Additional Past Medical History / Comment(s): occ migraines, hemorrhoids, degenerative disks L4 and L5 History of Any Multi-Drug Resistant Organisms: None Reported Past Surgical History: Appendectomy, Section, Orthopedic Surgery Additional Past Surgical History / Comment(s): LEFT ARM (POST TRAUMATIC INJURY) reattached, RIGHT FOOT X3, LEFT KNEE ARTHROSCOPY, left oophorectomy, hemorroidectomy Past Anesthesia/Blood Transfusion Reactions: No Reported Reaction Past Psychological History: Anxiety, Bipolar, Depression, Panic Disorder Smoking Status: Current every day smoker Past Alcohol Use History: None Reported Additional Past Alcohol Use History / Comment(s): quit smoking 2015, smoked for 15 yrs, < 1 PPD Past Drug Use History: None Reported - Past Family History Mother Family Medical History: No Reported History Medications and Allergies Home Medications Medication Instructions Recorded Confirmed Type Benztropine Mesylate [Cogentin] 1 mg PO BID 03/22/24 03/22/24 History QUEtiapine [SEROquel] 100 mg PO HS 03/22/24 03/22/24 History Tamsulosin [Flomax] 0.4 mg PO DAILY 03/22/24 03/22/24 History Zolpidem [Ambien] 10 mg PO HS 03/22/24 03/22/24 History cloNIDine HCL [Catapres] 0.3 mg PO HS 03/22/24 03/22/24 History hydrOXYzine pamoate [Vistaril] 100 mg PO DIRECTED 03/22/24 03/22/24 History lamoTRIgine [LaMICtal] 100 mg PO HS 03/22/24 03/22/24 History tiZANidine [Zanaflex] 4 mg PO BID PRN 03/22/24 03/22/24 History Allergies Allergy/AdvReac Type Severity Reaction Status Date / Time Penicillins Allergy Unknown Rash/Hives/Itching Verified 03/22/24 09:37 all over body Physical Exam Vitals: Vital Signs Temp Pulse Pulse Resp BP BP BP 03/23/24 08:41 98.2 F 102 H 18 151/93 03/23/24 03:08 97.6 F 88 18 124/67 03/22/24 23:06 97.5 F L 69 18 116/69 03/22/24 20:00 98.8 F 109 H 18 168/98 03/22/24 19:47 94 18 150/97 03/22/24 18:02 103 H 20 147/103 03/22/24 14:29 120 H 26 H 135/80 03/22/24 14:21 130 H 38 H 115/72 03/22/24 12:17 121 H 20 136/77 03/22/24 11:05 98.8 F 109 H 18 168/98 Pulse Ox 03/23/24 08:41 99 03/23/24 03:08 96 03/22/24 23:06 91 L 03/22/24 20:00 96 03/22/24 19:47 96 03/22/24 18:02 03/22/24 14:29 96 03/22/24 14:21 98 03/22/24 12:17 96 03/22/24 11:05 96 Intake and Output 03/22/24 03/23/24 03/23/24 22:59 06:59 14:59 Intake Total 120 128 Output Total 900 600 Balance 120 -900 -472 Intake: IV 10 Invasive Line 1 10 Oral 120 118 Output: Urine 900 600 Straight 900 600 Other: Weight 52 kg Results 03/23/24 06:33 03/23/24 06:33 Cardiac Enzymes 03/22/24 03/22/24 Range/Units 11:26 15:03 Troponin I 0.018 <0.012 (0.000-0.034) ng/mL CBC 03/23/24 Range/Units 06:33 WBC 6.8 (3.8-10.6) k/uL RBC 3.98 (3.80-5.40) m/uL Hgb 12.3 (11.4-16.0) gm/dL Hct 37.7 (34.0-46.0) % Plt Count 304 (150-450) k/uL Comprehensive Metabolic Panel 03/23/24 Range/Units 06:33 Sodium 139 (137-145) mmol/L Potassium 4.3 (3.5-5.1) mmol/L Chloride 107 (98-107) mmol/L Carbon Dioxide 26 (22-30) mmol/L BUN 8 (7-17) mg/dL Creatinine 0.66 (0.52-1.04) mg/dL Glucose 96 (74-99) mg/dL Calcium 9.7 (8.4-10.2) mg/dL Current Medications Generic Name Dose Route Start Last Admin Trade Name Freq PRN Reason Stop Dose Admin Acetaminophen 650 mg 03/22/24 16:49 03/23/24 09:30 Acetaminophen Tab 325 Mg Tab PO 650 mg Q6HR PRN Administration Fever and/ or Pain Hydrocodone Bitart/Acetaminophen 1 each 03/22/24 16:49 Hydrocodone/Apap 5-325mg 1 Each Tab PO Q6HR PRN Pain Alprazolam 0.25 mg 03/22/24 20:34 03/23/24 10:34 Alprazolam 0.25 Mg Tab PO 0.25 mg BID PRN Administration Anxiety Aspirin 325 mg 03/23/24 09:00 03/23/24 09:13 Aspirin 325 Mg Tab PO 325 mg DAILY BARRY Administration Benztropine Mesylate 1 mg 03/22/24 21:00 03/23/24 09:13 Benztropine Mesylate 1 Mg Tab PO 1 mg BID BARRY Administration Clonidine 0.1 mg 03/22/24 21:00 03/22/24 20:58 Clonidine Hcl 0.1 Mg Tab PO 0.1 mg HS BARRY Administration Lamotrigine 100 mg 03/22/24 21:00 03/22/24 20:59 Lamotrigine 100 Mg Tab PO 100 mg HS BARRY Administration Nitroglycerin 0.4 mg 03/22/24 10:32 Nitroglycerin Sl Tabs 0.4 Mg Tab SUBLINGUAL Q5M PRN Chest Pain Nitroglycerin 1 inch 03/22/24 12:00 03/23/24 06:22 Nitroglycerin Oint 1 Inch/Gm Packet TOPICAL 1 inch Q6HR BARRY Administration Pantoprazole Sodium 40 mg 03/23/24 09:00 03/23/24 09:13 Pantoprazole 40 Mg/10 Ml Vial IVP 40 mg DAILY BARRY Administration Quetiapine Fumarate 100 mg 03/22/24 21:00 03/22/24 20:58 Quetiapine 100 Mg Tab PO 100 mg HS BARRY Administration Zolpidem Tartrate 10 mg 03/22/24 21:00 03/22/24 20:59 Zolpidem 5 Mg Tab PO 10 mg HS BARRY Administration Intake and Output 03/22/24 03/23/24 03/23/24 22:59 06:59 14:59 Intake Total 120 128 Output Total 900 600 Balance 120 900 472 Intake: IV 10 Invasive Line 1 10 Oral 120 118 Output: Urine 900 600 Straight 900 600 Other: Weight 52 kg 03/23/24 06:33 03/23/24 06:33
[2024-03-23] MEDS: HYDROcodone/APAP 5-325MG 1 EACH TAB PO PRN (13:04)
--- NOTE | 2024-03-23 15:49 | CA ---
Dobutamine Stress Echocardiogram Report Shirley Nieves Age: 63 Gender: F : 1960 Exam Date: 03/23/2024 12:00 Exam Location: [place] [facility] Ordering Physician: Ana Morales Referring Physician: [id number] Plant Supervisor: Yamilka Villalobos RDCS Technologist: Ht (in): 61 Wt (lb): 125 Procedure CPT: Indication: CP ICD-9 Codes: Rhythm: Patient History: CHEST PAIN, DIFFICULTY IN BREATHING, HTN, CURRENT SMOKER Cardiac Medications: Medications in past 24 hours: Contrast: N/A Total Dose (mL): Stress Results Protocol: Dobutamine Peak Dose (???g/kg/min): 40 Duration (min:sec): Atropine:(mg) Target HR: 134 Double Product: Resting HR: 83 Resting BP: 133 / 91 Peak HR: 137 Peak BP: 151 / 64 Max Predicted HR: 158 87 % Max Predicted HR Stress Summary: BP Response: Reason for Termination: INFUSION COMPLETE Cardiac Symptoms: CHEST PAIN ECG Analysis Resting EKG: Stress EKG: Arrhythmia: Echo Analysis Base Echo Analysis: Low Echo Anaylsis: Peak Echo Analysis: Recovery Echo: MEASUREMENTS (Male/Female) Normal Values CONCLUSIONS Patient underwent dobutamine stress echo with infusion of dobutamine into Stage 4 for a total of 14 minutes and 35 seconds. Patient's maximum heart rate was 137 which represented 88% age-predicted maximum heart rate. Stress EKG portion: At baseline patient's EKG showed normal sinus rhythm, normal axis, no significant ST or T wave abnormalities. At peak dobutamine infusion, EKG showed no significant change from baseline. Stress echo portion: 2-D echocardiogram was performed in the parasternal long, personal short, apical 2 and apical four-chamber views at rest, low-dose, peak infusion and in recovery. At baseline, echocardiogram showed left ventricular ejection fraction 60% without wall motion abnormalities. With peak infusion, echocardiogram shows improvement in left ventricular ejection fraction, increase contractility, decrease in left ventricular end systolic dimension without wall motion abnormalities consistent with a normal response to dobutamine. Conclusions: 1. Normal stress EKG and echo response to dobutamine infusion without any evidence of inducible ischemia. Dr. Sandip Merida DO (Electronically Signed) Final Date: 23 March 2024 15:48
[2024-03-24] MEDS: ASPIRIN 81 MG PO SCH (09:52)
--- NOTE | 2024-03-24 10:22 | P.PN ---
Subjective HISTORY OF PRESENT ILLNESS: This is a 63-year-old female with a past medical history significant for anxiety, bipolar disorder, and nicotine dependence. Patient does not follow with a freezer laboratory technician. We have been asked to see the patient in consultation for chest pain. Patient examined at the bedside. Patient apparently was brought to the hospital for altered mental status. The patient does report that she fell down the stairs a few days ago and reports hitting her head. She did complain of having a headache this morning. The patient also reports she has been having chest pain on and off since yesterday. She denies any radiation of the pain. She states the pain is worse with chest wall palpation. She is unsure if she hit her chest when she fell down the stairs. DIAGNOSTICS: - EKG reveals sinus mechanism with T wave inversions in precordial leads. - Chest xray negative for acute process. - Chest CTA: Negative for pulmonary embolism. Groundglass opacity right upper lobe. - Laboratory data: WBC 6.8. Hemoglobin 12.3. Platelet count 304. Sodium 139. Potassium 4.3. BUN 8. Creatinine 0.66. Troponin negative x 3 - Current home cardiac medications include Catapres 0.3 mg at night. - Most recent echocardiogram obtained in August 2023 revealed ejection fraction 55 to 60%, mild MR, mild TR - Cardiac catheterization history: 2019 revealing normal coronary arteries 03/24/2024 Patient examined this morning at bedside. Patient underwent dobutamine stress echo yesterday which was negative for ischemia. She reports improvement in her chest pain this morning. Vital signs are stable. She is awaiting psychiatry evaluation PHYSICAL EXAM: VITAL SIGNS: Reviewed. GENERAL: Well-developed in no acute distress. HEENT: Head is normocephalic. Pupils are equal, round. Sclerae anicteric. Mucous membranes of the mouth are moist. Neck supple. No JVD or thyromegaly LUNGS: Respirations even and unlabored. Lungs essentially clear to auscultation bilaterally. HEART: Regular rate and rhythm. S1 and S2 heard. ABDOMEN: Soft. Nondistended. Nontender. EXTREMITIES: Normal range of motion. No clubbing or cyanosis. Peripheral p ulses intact. No lower extremity edema NEUROLOGIC: Awake and alert. Oriented x 3. ASSESSMENT: Status post mechanical fall down a flight of stairs Chest pain, appears musculoskeletal, however with new T wave inversions in precordial leads, status post dobutamine stress echo with no evidence of is chemia Anxiety Bipolar disorder Nicotine dependence PLAN: Continue current cardiac medications No further inpatient recommendations from a cardiac standpoint Discharge per medicine We will sign off. Please reconsult if needed. Nurse practitioner note has been reviewed by physician. Signing provider agrees with the documented findings, assessment, and plan of care documented by TRAFFIC TECHNICIAN as a scribe. Objective - Vital Signs Vital signs: Vital Signs Temp 99.2 F 03/24/24 09:47 Pulse 89 03/24/24 09:47 Resp 18 03/24/24 09:47 BP 140/74 03/24/24 09:47 Pulse Ox 95 03/24/24 09:47 FiO2 Intake & Output 03/23/24 03/24/24 03/24/24 18:59 06:59 18:59 Intake Total 364 128 Output Total 1400 Balance -1036 128 Weight 52 kg 49.6 kg Intake: IV 10 10 Invasive Line 1 10 Invasive Line 2 10 Oral 354 118 Output: Urine 1000 Straight 600 Post Void Residual 400 Other: Voiding Method Toilet Toilet # Voids 0 - Labs CBC & Chem 7: 03/23/24 06:33 03/23/24 06:33
--- NOTE | 2024-03-24 14:16 | P.PN ---
Subjective Progress Note Date: 03/24/24 63-year-old female with a past medical history significant for anxiety, bipolar disorder, and nicotine dependence. Patient apparently was brought to the hospital for altered mental status. The patient does report that she fell down the stairs a few days ago and reports hitting her head. She did complain of having a headache this morning. The patient also reports she has been having chest pain on and off since yesterday. She denies any radiation of the pain. She states the pain is worse with chest wall palpation. 03/24. Patient seen and examined. Dr. Wilkins took over care from Dr. Miller. Currently laying comfortably in the bed. Denies any acute issues overnight. Patient had dobutamine stress echo done yesterday which was negative for ischemia. REVIEW OF SYSTEMS: CONSTITUTIONAL: No fever, no malaise,. CARDIOVASCULAR: No chest pain, no palpitations, no syncope. PULMONARY: No shortness of breath, no cough, GASTROINTESTINAL: No diarrhea, no nausea, no vomiting, no abdominal pain. NEUROLOGICAL: No headaches, no weakness, PHYSICAL EXAMINATION: GENERAL: The patient is alert and oriented x3, not in any acute distress. Well developed, well nourished. HEENT: Pupils are round and equally reacting to light. EOMI. No scleral icterus. No conjunctival pallor. Normocephalic, atraumatic. No pharyngeal erythema. No thyromegaly. CARDIOVASCULAR: S1 and S2 present. No murmurs, rubs, or gallops. PULMONARY: Chest is clear to auscultation, no wheezing or crackles. ABDOMEN: Soft, nontender, nondistended, normoactive bowel sounds. No palpable organomegaly. MUSCULOSKELETAL: No joint swelling or deformity. EXTREMITIES: No cyanosis, clubbing, or pedal edema. NEUROLOGICAL: Gross neurological examination did not reveal any focal deficits. SKIN: No rashes. Assessment and plan Status post mechanical fall down a flight of stairs Chest pain, Anxiety Bipolar disorder Nicotine dependence Monitor vital signs Monitor CBC Monitor CMP Continue aspirin Continue clonidine Continue as needed Xanax Continue Seroquel and Ambien Dobutamine stress echo was negative for ischemia. Cardiology signed off Psych consulted Labs and medication were reviewed.. Continue same treatment. Continue with symptomatic treatment. Resume home medication. Monitor labs and vitals. DVT and GI prophylaxis. Further recommendations as per clinical course of the patient Dictation was produced using [employer] dictation software. please excuse any grammatical, word or spelling errors. Objective - Vital Signs Vital signs: Vital Signs Temp 98.5 F 03/24/24 11:54 Pulse 92 03/24/24 11:54 Resp 18 03/24/24 11:54 BP 163/92 03/24/24 11:54 Pulse Ox 98 03/24/24 11:54 FiO2 Intake & Output 03/23/24 03/24/24 03/24/24 18:59 06:59 18:59 Intake Total 364 368 Output Total 1400 300 Balance -1036 68 Weight 52 kg 49.6 kg Intake: IV 10 10 Invasive Line 1 10 Invasive Line 2 10 Oral 354 358 Output: Urine 1000 300 Straight 600 Post Void Residual 400 Other: Voiding Method Toilet Toilet Toilet # Voids 0 - Labs CBC & Chem 7: 03/23/24 06:33 03/23/24 06:33 Labs: Microbiology - Last 24 Hours (Table) 03/23/24 09:38 Urine Culture - Final Urine,Catheterized
[2024-03-24] MEDS: TAMSULOSIN 0.4 MG CAP.ER.24H PO STA (18:10)
[2024-03-25] MEDS: TAMSULOSIN 0.4 MG CAP.ER.24H PO SCH (09:26)
--- NOTE | 2024-03-25 10:13 | P.HPIM ---
History of Present Illness H&P Date: 03/23/24 Chief Complaint: AMS Shirley Nieves is a 63 yo F with PMH of bipolar disorder, tobacco abuse, insomnia who was brought to the ED by a friend with confusion and AMS. Pt notes she fell at home a few days ago and hit her head and since then has been more lethargic and dizzy. She also complains she has been having chest pain the last 2 days or so. She denies nausea, vomiting, sweats, or radiation of the pain. She currently endorses tenderness throughout her chest wall. On presentation vitals stable, EKG with T wave inversions, CT head and CXR negative, CTA chest no acute process. WBC 6.8k, Hgb 12.3, Cr 0.66, trop neg. Review of Systems All systems: negative Constitutional: Reports malaise, Reports weakness, Denies chills, Denies fever Eyes: denies blurred vision, denies pain Ears, nose, mouth and throat: Denies headache, Denies sore throat Cardiovascular: Reports chest pain, Denies shortness of breath Respiratory: Denies cough Gastrointestinal: Denies abdominal pain, Denies diarrhea, Denies nausea, Denies vomiting Genitourinary: Denies dysuria, Denies hematuria Musculoskeletal: Denies myalgias Integumentary: Denies pruritus, Denies rash Neurological: Reports confusion, Denies numbness, Denies weakness Psychiatric: Denies anxiety, Denies depression Endocrine: Denies fatigue, Denies weight change Past Medical History Past Medical History: Hyperlipidemia, Hypertension Additional Past Medical History / Comment(s): occ migraines, hemorrhoids, degenerative disks L4 and L5 History of Any Multi-Drug Resistant Organisms: None Reported Past Surgical History: Appendectomy, Section, Orthopedic Surgery Additional Past Surgical History / Comment(s): LEFT ARM (POST TRAUMATIC INJURY) reattached, RIGHT FOOT X3, LEFT KNEE ARTHROSCOPY, left oophorectomy, hemorroidectomy Past Anesthesia/Blood Transfusion Reactions: No Reported Reaction Past Psychological History: Anxiety, Bipolar, Depression, Panic Disorder Smoking Status: Current every day smoker Past Alcohol Use History: None Reported Additional Past Alcohol Use History / Comment(s): quit smoking 2015, smoked for 15 yrs, < 1 PPD Past Drug Use History: None Reported - Past Family History Mother Family Medical History: No Reported History Medications and Allergies Home Medications Medication Instructions Recorded Confirmed Type Benztropine Mesylate [Cogentin] 1 mg PO BID 03/22/24 03/22/24 History QUEtiapine [SEROquel] 100 mg PO HS 03/22/24 03/22/24 History Tamsulosin [Flomax] 0.4 mg PO DAILY 03/22/24 03/22/24 History Zolpidem [Ambien] 10 mg PO HS 03/22/24 03/22/24 History cloNIDine HCL [Catapres] 0.3 mg PO HS 03/22/24 03/22/24 History hydrOXYzine pamoate [Vistaril] 100 mg PO DIRECTED 03/22/24 03/22/24 History lamoTRIgine [LaMICtal] 100 mg PO HS 03/22/24 03/22/24 History tiZANidine [Zanaflex] 4 mg PO BID PRN 03/22/24 03/22/24 History Allergies Allergy/AdvReac Type Severity Reaction Status Date / Time Penicillins Allergy Unknown Rash/Hives/Itching Verified 03/22/24 09:37 all over body Physical Exam Vitals: Vital Signs Temp Pulse Resp BP BP Pulse Ox 03/25/24 09:15 98.7 F 96 18 116/77 98 03/25/24 03:18 98.5 F 78 16 116/79 94 L 03/24/24 23:19 98.3 F 82 15 113/72 99 03/24/24 19:37 98.3 F 88 16 185/108 96 03/24/24 16:25 98.6 F 102 H 18 149/79 98 03/24/24 11:54 98.5 F 92 18 163/92 98 Intake and Output 03/24/24 03/25/24 03/25/24 22:59 06:59 14:59 Intake Total 118 128 Output Total 100 400 500 Balance 74 -445 -368 Intake: IV 10 Invasive Line 2 10 Oral 118 118 Output: Urine 100 400 500 Other: Voiding Method Toilet Toilet Weight 49.7 kg Gen: well developed, elderly female in NAD HEENT: NC/AT. Ecchymoses to forehead Neck: Supple, no JVD or thyromegaly CV: RRR, no murmur Lungs: Normal effort, clear throughout Abd: soft, nontender, non distended Skin: warm and dry Neuro: AAOx3 no focal deficit Results CBC & Chem 7: 03/23/24 06:33 03/23/24 06:33 Labs: Microbiology - Last 24 Hours (Table) 03/23/24 09:38 Urine Culture - Final Urine,Catheterized Thrombosis Risk Factor Assmnt - Choose All That Apply Any of the Below Risk Factors Present?: Yes Each Factor Represents 1 point: Varicose veins Other Risk Factors: Yes Each Risk Factor Represents 2 Points: Age 61-74 years Other congenital or acquired thrombophilia - If yes, enter type in comment: No Thrombosis Risk Factor Assessment Total Risk Factor Score: 3 Thrombosis Risk Factor Assessment Level: Moderate Risk Assessment and Plan Plan: Chest pain. ACS ruled out. Cardiology consulted for further evaluation Headache, confusion s/p mechanical fall at home. Suspect concussion. CT negative. Supportive care Bipolar disorder. Resume home medications
--- NOTE | 2024-03-25 10:18 | P.CN ---
Psychiatric Consult - . Consult date: 03/25/24 Consult:: 03/25/24 10:10 Patient Name: Shirley Nieves Date of : 1960 Patient Status: Inpatient Attending Provider: Valentín Miller Date: 03/25/24 Initialization Date: 03/24/24 14:13 This is a psychiatric assessment on this 63-year-old female who is currently hospitalized for frequent falls Following is an excerpt from the assessment done at the time of admission: 63-year-old female with a past medical history significant for anxiety, bipolar disorder, and nicotine dependence. Patient apparently was brought to the hospital for altered mental status. The patient does report that she fell down the stairs a few days ago and reports hitting her head. She did complain of having a headache this morning. The patient also reports she has been having chest pain on and off since yesterday. She denies any radiation of the pain. She states the pain is worse with chest wall palpation. When seen today patient reports that she was diagnosed with bipolar disorder about 10 years ago but did not feel like talking about it since this was so long ago She reports that she has chronic anxiety and racing thoughts and that she does need her Xanax and Ambien and that she wants something more sedating Patient is currently also on hydrocodone, Cogentin and Seroquel Patient states that she stopped seeing a psychiatrist although she was hospitalized about 10 years ago for bipolar disorder She states that her family primary care physician has been taking care of her medications She currently denies any suicidal or homicidal ideations She is not comfortable with stopping any of her sedative medications Mental status examination: OBJECTIVE: Casually groomed and in hospital gown speech was appropriate -The conversation is coherent. -There are no abnormalities to the content of thoughts. -There are no abnormalities to the content of thought and no perceptual disturbances. -Fund of general knowledge is probably average. -pts MOOD IS euthymic No agitation or irritation noted. -pts judgement and insight is fair ,concrete Denies any suicidal ideations no homicidal ideation. Behavior: cooperative, somewhat hyperverbal and excitable Speech: fluent, clear, hyperverbal Perception: denies AH,VH hallucinations, no command chun. Cognition: alert, oriented to situation, oriented to time, oriented to place, oriented to person, memory intact, normal concentrating ability, normal attention Intelligence: average Memory: remote, recent fair Mood: flat Insight: intact,concrete Judgment: intact,concrete Thought Processes: intact Thought Content: Coherent and relevant concrete Diagnostic impression: Bipolar disorder mild hypomania Anxiety disorder NOS Plan: The patient currently is on multiple sedatives which may also contribute to her hypotension with that includes hydrocodone and Seroquel Xanax Lamictal and Ambien Cogentin and clonidine Patient states that she has already stopped taking the Seroquel and is willing to stop the Cogentin She reports that the clonidine was given in the hospital and that has already been stopped Patient however is unwilling to stop the Xanax and the Ambien I also suggested that she should stop the Seroquel as it does have a contributing affect to cause hypotension and that she could be recommended for a different antipsychotic Patient was suggested Zyprexa or Latuda which she declined Patient is advised to follow-up with her PCP for further med management Patient at this time does not exhibit behavior needing inpatient psychiatric hospitalization Thank you very much for your kind referral and please feel free to contact me for any further questions Adithya Sims MD
--- NOTE | 2024-03-25 13:39 | P.PN ---
Subjective Progress Note Date: 03/25/24 63-year-old female with a past medical history significant for anxiety, bipolar disorder, and nicotine dependence. Patient apparently was brought to the hospital for altered mental status. The patient does report that she fell down the stairs a few days ago and reports hitting her head. She did complain of having a headache this morning. The patient also reports she has been having chest pain on and off since yesterday. She denies any radiation of the pain. She states the pain is worse with chest wall palpation. 03/24. Patient seen and examined. Dr. Wilkins took over care from Dr. Miller. Currently laying comfortably in the bed. Denies any acute issues overnight. Patient had dobutamine stress echo done yesterday which was negative for ischemia. 03/25. Patient seen and examined. She feels better. Denies any chest pain or shortness of breath. REVIEW OF SYSTEMS: CONSTITUTIONAL: No fever, no malaise,. CARDIOVASCULAR: No chest pain, no palpitations, no syncope. PULMONARY: No shortness of breath, no cough, GASTROINTESTINAL: No diarrhea, no nausea, no vomiting, no abdominal pain. NEUROLOGICAL: No headaches, no weakness, PHYSICAL EXAMINATION: GENERAL: The patient is alert and oriented x3, not in any acute distress. Well developed, well nourished. HEENT: Pupils are round and equally reacting to light. EOMI. No scleral icterus. No conjunctival pallor. Normocephalic, atraumatic. No pharyngeal erythema. No thyromegaly. CARDIOVASCULAR: S1 and S2 present. No murmurs, rubs, or gallops. PULMONARY: Chest is clear to auscultation, no wheezing or crackles. ABDOMEN: Soft, nontender, nondistended, normoactive bowel sounds. No palpable organomegaly. MUSCULOSKELETAL: No joint swelling or deformity. EXTREMITIES: No cyanosis, clubbing, or pedal edema. NEUROLOGICAL: Gross neurological examination did not reveal any focal deficits. SKIN: No rashes. Assessment and plan Status post mechanical fall down a flight of stairs Chest pain, Anxiety Bipolar disorder Nicotine dependence Monitor vital signs Monitor CBC Monitor CMP Continue aspirin Continue clonidine Continue as needed Xanax Continue Seroquel and Ambien Dobutamine stress echo was negative for ischemia. Cardiology signed off Psych consulted Labs and medication were reviewed.. Continue same treatment. Continue with symptomatic treatment. Resume home medication. Monitor labs and vitals. DVT and GI prophylaxis. Further recommendations as per clinical course of the patient Dictation was produced using pyco dictation software. please excuse any grammatical, word or spelling errors. Objective - Vital Signs Vital signs: Vital Signs Temp 98.7 F 03/25/24 09:15 Pulse 96 03/25/24 09:15 Resp 18 03/25/24 09:15 BP 116/77 03/25/24 09:15 Pulse Ox 98 03/25/24 09:15 FiO2 Intake & Output 03/24/24 03/25/24 03/25/24 18:59 06:59 18:59 Intake Total 486 128 Output Total 400 400 500 Balance 86 -400 -372 Weight 49.7 kg Intake: IV 10 10 Invasive Line 2 10 10 Oral 476 118 Output: Urine 400 400 500 Other: Voiding Method Toilet Toilet - Labs CBC & Chem 7: 03/23/24 06:33 03/23/24 06:33 Labs: Microbiology - Last 24 Hours (Table) 03/23/24 09:38 Urine Culture - Final Urine,Catheterized
[2024-03-25 20:12] VITALS: RESP 18
--- NOTE | 2024-03-26 09:39 | CDI ---
Documentation Clarification Form Date: 03/26/2024 From: Maddie Randle Phone: [phone] Admit Date: 03/22/2024 10:32:00 AM Patient Name: Shirley Nieves Visit Number: [id number] Discharge Date: ATTENTION: The Clinical Documentation Specialists (CDI) and [facility] Coding Staff appreciate your assistance in clarifying documentation. Please respond to the clarification below the line at the bottom and electronically sign. The CDI & [facility] Coding staff will review the response and follow-up if needed. Please note: Queries are made part of the Legal Health Record. If you have any questions, please contact the author of this message via ITS. Dr. Lester Wilkins: Your patient has the documented symptom of Altered Mental Status in the ED note 03/22. Additional clarification regarding the etiology/cause of this symptom is requested. History/Risk Factors: 63-year-old female with a history of anxiety, bipolar, panic disorder who presents after a fall a few days ago when she hit her head and woke up in the morning and she was altered, chest pain the last 2 days Clinical Indicators: 03/22 Triage VS: 175/102, 98.2, 122, 20, 99% room air 03/22 ED HPI: "This is a 63-year-old female who presents to the emergency department for altered mental status." 03/25 H&P, Assessment and Plan: "Headache, confusion s/p mechanical fall at home. Suspect concussion. CT negative." 03/22, 03/23 Potassium: 3.3, 4.3 03/22 Ammonia: 10 03/22 CT Brain/C-spine, Impression: "No acute intracranial process. No evidence of cervical spine fracture." 03/22 Chest X Ray, Impression: "1. No acute pulmonary process." Treatment: Seroquel 100mg oral at bedtime 03/22-03/24 Xanax 0.25mg oral BID prn given once 03/26 Please clarify the etiology of the symptom of Altered Mental Status: [ x ] Metabolic Encephalopathy due to hypokalemia [ ] Altered mental status due to concussion [ ] Other condition (please specify) [ ] Unable to determine MTDD
[2024-03-26] MEDS: LURASIDONE 40 MG TAB PO SCH (10:06)
[2024-03-26 13:40] VITALS: BMI 20.7
[2024-03-26 16:32] VITALS: BP 142/72; PULSE 104; TEMP 98.2
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
--- NOTE | 2024-03-30 11:30 | CDI ---
Documentation Clarification Form Date: 03/29/2024 12:44:00 PM From: Xenia Burns RN, CCDS Phone: [phone] Admit Date: 03/22/2024 10:32:00 AM Patient Name: Shirley Nieves Visit Number: [id number] Discharge Date: 03/26/2024 05:29:00 PM ATTENTION: The Clinical Documentation Specialists (CDI) and [facility] Coding Staff appreciate your assistance in clarifying documentation. Please respond to the clarification below the line at the bottom and electronically sign. The CDI & [facility] Coding staff will review the response and follow-up if needed. Please note: Queries are made part of the Legal Health Record. If you have any questions, please contact the author of this message via ITS. Dr. Valentín Miller The patient has the documented symptom of chest pain in the H&P and discharge summary. Additional clarification regarding the etiology/cause of this symptom is requested. History/Risk factors: The patient has bipolar disorder, tobacco abuse and insomnia. Was brought to the ED by a friend with confusion and AMS. Pt notes she fell at home a few days ago and hit her head and since then has been more lethargic and dizzy. She also complains she has been having chest pain the last 2 days or so. Clinical Indicators: H&P: "She currently endorses tenderness throughout her chest wall. 03/23 Cardiology consult: "Status post mechanical fall down a flight of stairs. Chest pain appears musculoskeletal, however with new T wave inversions in precordial leads. She states the pain is worse with chest wall palpation. Discharge summary: "Chest pain with T wave inversions. ACS ruled out. Status post Dobutamine stress echo reporting no evidence of inducible ischemia. Appears muscle skeletal as per Cardiology." 03/22 Labs: Troponins: <0.012-0.018-<0.012 03/23 Dobutamine stress echo: Normal stress EKG and echo response to Dobutamine infusion without any evidence of inducible ischemia. Treatment: ASA 324mg po x1 on 03/22; ASA 325mg po x1 on 03/23; IV Toradol 15mg x1 on 03/22; [place] 5-325 po Q6H 03/23-03/25 Please provide additional clarification regarding the etiology/cause of the chest pain. [ X ] Chest pain due to chest wall pain [ ] Chest pain due to Costochondritis [ ] Chest pain due to other condition, please specify [ ] Unable to determine MTDD
== END 2024-03-26 17:29 | disposition home or self-care (01) | DRG 313 ==
LOC: EC 07:20 → 3SCARD 10:32
PROVIDERS: ADMIT Family Medicine; ATTEND Family Medicine
DX: R07.89 Other chest pain (principal); G93.41 Metabolic encephalopathy; F31.0 Bipolar disorder, current episode hypomanic; E78.5 Hyperlipidemia, unspecified; I10 Essential (primary) hypertension; E87.6 Hypokalemia; F41.0 Panic disorder [episodic paroxysmal anxiety]; R29.6 Repeated falls; F17.200 Nicotine dependence, unspecified, uncomplicated; Z71.6 Tobacco abuse counseling; G47.00 Insomnia, unspecified; Z79.899 Other long term (current) drug therapy; W10.9XXA Fall (on) (from) unspecified stairs and steps, initial encounter; Y92.009 Unspecified place in unspecified non-institutional (private) residence as the place of occurrence of the external cause; Z88.0 Allergy status to penicillin
CPT/HCPCS: 36415; 70450; 71046; 71275; 72125; 80048; 80053; 80061; 80306; 81001; 82140; 83735; 84145; 84484; 85025; 85027; 85379; 85610; 85730; 87086; 93005; 93351; 96361; 96374; 96375; 99285

== ENCOUNTER 2024-09-12 07:35 | Emergency (ER) | payer MEDICARE, OTHER ==
--- NOTE | 2024-09-12 07:48 | ED ---
General Adult HPI - General Chief complaint: Nausea/Vomiting/Diarrhea Stated complaint: Vomiting Time Seen by Provider: 09/12/24 07:37 Source: patient, EMS, RN notes reviewed Mode of arrival: EMS Limitations: no limitations - History of Present Illness Initial comments: Patient is a 64-year-old female present to the emergency department with concerns with nausea vomiting. Onset of symptoms was 2 or 3 days ago. Patient has vomited multiple times. Patient has been taking Pepcid, Tums, and occasional Motrin. Last emesis was a little bit dark. Patient stools have also been a little bit dark. Patient does have some epigastric discomfort. - Related Data Home Medications Medication Instructions Recorded Confirmed Tamsulosin [Flomax] 0.4 mg PO DAILY 03/22/24 03/22/24 Zolpidem [Ambien] 10 mg PO HS 03/22/24 03/22/24 hydrOXYzine pamoate [Vistaril] 100 mg PO DIRECTED 03/22/24 03/22/24 lamoTRIgine [LaMICtal] 100 mg PO HS 03/22/24 03/22/24 tiZANidine [Zanaflex] 4 mg PO BID PRN 03/22/24 03/22/24 Previous Rx's Medication Instructions Recorded Aspirin 81 mg PO DAILY tab 03/26/24 Lurasidone [Latuda] 40 mg PO HS #30 tab 03/26/24 Ondansetron Odt [Zofran Odt] 4 mg PO Q8HR PRN #10 tab 09/12/24 Allergies Allergy/AdvReac Type Severity Reaction Status Date / Time Penicillins Allergy Unknown Rash/Hives/Itching Verified 03/22/24 09:37 all over body Review of Systems ROS Statement: Those systems with pertinent positive or pertinent negative responses have been documented in the HPI. ROS Other: All systems not noted in ROS Statement are negative. Constitutional: Denies: fever Eyes: Denies: eye pain ENT: Denies: ear pain Respiratory: Denies: dyspnea Cardiovascular: Denies: chest pain Gastrointestinal: Reports: as per HPI, abdominal pain, nausea, vomiting, diarrhea Genitourinary: Denies: dysuria Musculoskeletal: Denies: back pain Skin: Denies: rash Neurological: Denies: weakness Past Medical History Past Medical History: Hyperlipidemia, Hypertension Additional Past Medical History / Comment(s): occ migraines, hemorrhoids, deg enerative disks L4 and L5 History of Any Multi-Drug Resistant Organisms: None Reported Past Surgical History: Appendectomy, Section, Orthopedic Surgery Additional Past Surgical History / Comment(s): LEFT ARM (POST TRAUMATIC INJURY) reattached, RIGHT FOOT X3, LEFT KNEE ARTHROSCOPY, left oophorectomy, hemorroidectomy Past Anesthesia/Blood Transfusion Reactions: No Reported Reaction Past Psychological History: Anxiety, Bipolar, Depression, Panic Disorder Smoking Status: Current every day smoker Past Alcohol Use History: None Reported Past Drug Use History: None Reported - Past Family History Mother Family Medical History: No Reported History General Exam Limitations: no limitations General appearance: alert, in no apparent distress Head exam: Present: normocephalic Eye exam: Present: normal appearance ENT exam: Present: normal oropharynx Neck exam: Present: normal inspection Respiratory exam: Present: normal lung sounds bilaterally Cardiovascular Exam: Present: regular rate, normal rhythm GI/Abdominal exam: Present: soft, tenderness (Mild epigastric tenderness to palpation), normal bowel sounds. Absent: distended, guarding, rebound, rigid, pulsatile mass Rectal exam: Present: normal inspection. Absent: black stool, bloody stool Extremities exam: Present: normal inspection Neurological exam: Present: alert Psychiatric exam: Present: normal affect, normal mood Skin exam: Present: normal color Course Vital Signs 09/12/24 09/12/24 09/12/24 07:40 08:01 10:36 Temperature 98.4 F 98.4 F Pulse Rate 89 87 73 Respiratory 18 18 16 Rate Blood Pressure 214/112 193/109 149/87 O2 Sat by Pulse 88 L 98 95 Oximetry EKG Findings - EKG Results: EKG: interpreted by ERMD, sinus rhythm, normal axis, normal QRS, normal ST/T Medical Decision Making - Medical Decision Making Was pt. sent in by a medical professional or institution (, PA, ACID PURIFIER, urgent care, hospital, or intermediate...) When possible be specific @ -No Did you speak to anyone other than the patient for history (EMS, parent, family, police, friend...)? What history was obtained from this source @ -EMS provides history of transportation and patient complaint Did you review nursing and triage notes (agree or disagree)? Why? @ -I reviewed and agree with nursing and triage notes Were old charts reviewed (outside hosp., previous admission, EMS record, old EKG, old radiological studies, urgent care reports/EKG's, intermediate records)? Report findings @ -No old charts were reviewed Differential Diagnosis (chest pain, altered mental status, abdominal pain women, abdominal pain men, vaginal bleeding, weakness, fever, dyspnea, syncope, headache, dizziness, GI bleed, back pain, seizure, CVA, palpatations, mental health, musculoskeletal)? @ -Differential Abdominal Pain Women: Appendicitis, Cholecystitis, diverticulosis, ischemic bowel, pancreatitis, hepatitis, UTI, gastroenteritis, AAA, incarcerated hernia, bowel obstruction, constipation, inflammatory bowel, hepatitis, peptic ulcer disease, splenic infarction, perforated viscus, vulvitis, ovarian torsion, PID, kidney stone, placenta abruption, this is not meant to be an all-inclusive list EKG interpreted by me (3pts min.). @ -As above X-rays interpreted by me (1pt min.). @ -None done CT interpreted by me (1pt min.). @ -None done U/S interpreted by me (1pt. min.). @ -None done What testing was considered but not performed or refused? (CT, X-rays, U/S, labs)? Why? @ -None What meds were considered but not given or refused? Why? @ -None Did you discuss the management of the patient with other professionals (professionals i.e. , PA, ACID PURIFIER, lab, RT, psych nurse, social work program coordinator, bakery demonstrator, teacher, pharmaceutical officer, assistant case manager)? Give summary @ -No Was smoking cessation discussed for >3mins.? @ -No Was critical care preformed (if so, how long)? @ -No Were there social determinants of health that impacted care today? How? (Homelessness, low income, unemployed, alcoholism, drug addiction, transportation, low edu. Level, literacy, decrease access to med. care, custodial, rehab)? @ -No Was there de-escalation of care discussed even if they declined (Discuss DNR or withdrawal of care, Hospice)? DNR status @ -No What co-morbidities impacted this encounter? (DM, HTN, Smoking, COPD, CAD, Cancer, CVA, ARF, Chemo, Hep., AIDS, mental health diagnosis, sleep apnea, morbid obesity)? @ -None Was patient admitted / discharged? Hospital course, mention meds given and route, prescriptions, significant lab abnormalities, going to OR and other pertinent info. @ -Patient presents with nausea vomiting diarrhea. Patient had dark stools however Hemoccult is negative. Abdomen is soft and nontender on reevaluation. Patient is feeling much better and requesting discharge home. Patient is updated on results and need for follow-up. Return parameters discussed Undiagnosed new problem with uncertain prognosis? @ -No Drug Therapy requiring intensive monitoring for toxicity (Heparin, Nitro, Insulin, Cardizem)? @ -No Were any procedures done? @ -No Diagnosis/symptom? @ -Vomiting, diarrhea Acute, or Chronic, or Acute on Chronic? @ -Acute, acute Uncomplicated (without systemic symptoms) or Complicated (systemic symptoms)? @ -Default Side effects of treatment? @ -No Exacerbation, Progression, or Severe Exacerbation? @ -No Poses a threat to life or bodily function? How? (Chest pain, USA, [place], pneumonia, PE, COPD, DKA, ARF, appy, cholecystitis, CVA, Diverticulitis, Homicidal, Suicidal, threat to staff... and all critical care pts) @ -No - Lab Data Result diagrams: 09/12/24 08:11 09/12/24 08:11 Lab Results 09/12/24 09/12/24 09/12/24 Range/Units 08:11 08:11 08:11 WBC 6.2 (3.8-10.6) k/uL RBC 4.25 (3.80-5.40) m/uL Hgb 12.9 (11.4-16.0) gm/dL Hct 38.7 (34.0-46.0) % MCV 91.0 (80.0-100.0) fL MCH 30.4 (25.0-35.0) pg MCHC 33.4 (31.0-37.0) g/dL RDW 13.8 (11.5-15.5) % Plt Count 333 (150-450) k/uL MPV 7.2 Neutrophils % 61 % Lymphocytes % 30 % Monocytes % 6 % Eosinophils % 1 % Basophils % 0 % Neutrophils # 3.8 (1.3-7.7) k/uL Lymphocytes # 1.9 (1.0-4.8) k/uL Monocytes # 0.4 (0-1.0) k/uL Eosinophils # 0.1 (0-0.7) k/uL Basophils # 0.0 (0-0.2) k/uL PT 12.2 (10.0-12.5) sec INR 1.1 (<1.2) APTT 26.8 (22.0-30.0) sec Sodium 137 (137-145) mmol/L Potassium 4.5 (3.5-5.1) mmol/L Chloride 106 (98-107) mmol/L Carbon Dioxide 20 L (22-30) mmol/L Anion Gap 11 mmol/L BUN 13 (7-17) mg/dL Creatinine 0.57 (0.52-1.04) mg/dL Est GFR (CKD-EPI)AfAm >90 (>60 ml/min/1.73 sqM) Est GFR (CKD-EPI)NonAf >90 (>60 ml/min/1.73 sqM) Glucose 104 H (74-99) mg/dL Calcium 9.1 (8.4-10.2) mg/dL Total Bilirubin 0.9 (0.2-1.3) mg/dL AST 35 (14-36) U/L ALT 18 (4-34) U/L Alkaline Phosphatase 90 (38-126) U/L Total Protein 7.2 (6.3-8.2) g/dL Albumin 4.3 (3.5-5.0) g/dL Amylase 49 (30-110) U/L Lipase 70 (23-300) U/L Stool Occult Blood (Negative) 09/12/24 Range/Units 08:11 WBC (3.8-10.6) k/uL RBC (3.80-5.40) m/uL Hgb (11.4-16.0) gm/dL Hct (34.0-46.0) % MCV (80.0-100.0) fL MCH (25.0-35.0) pg MCHC (31.0-37.0) g/dL RDW (11.5-15.5) % Plt Count (150-450) k/uL MPV Neutrophils % % Lymphocytes % % Monocytes % % Eosinophils % % Basophils % % Neutrophils # (1.3-7.7) k/uL Lymphocytes # (1.0-4.8) k/uL Monocytes # (0-1.0) k/uL Eosinophils # (0-0.7) k/uL Basophils # (0-0.2) k/uL PT (10.0-12.5) sec INR (<1.2) APTT (22.0-30.0) sec Sodium (137-145) mmol/L Potassium (3.5-5.1) mmol/L Chloride (98-107) mmol/L Carbon Dioxide (22-30) mmol/L Anion Gap mmol/L BUN (7-17) mg/dL Creatinine (0.52-1.04) mg/dL Est GFR (CKD-EPI)AfAm (>60 ml/min/1.73 sqM) Est GFR (CKD-EPI)NonAf (>60 ml/min/1.73 sqM) Glucose (74-99) mg/dL Calcium (8.4-10.2) mg/dL Total Bilirubin (0.2-1.3) mg/dL AST (14-36) U/L ALT (4-34) U/L Alkaline Phosphatase (38-126) U/L Total Protein (6.3-8.2) g/dL Albumin (3.5-5.0) g/dL Amylase (30-110) U/L Lipase (23-300) U/L Stool Occult Blood Negative (Negative) Disposition Clinical Impression: Vomiting Disposition: HOME SELF-CARE Condition: Stable Instructions (If sedation given, give patient instructions): Acute Nausea and Vomiting (ED), Acute Diarrhea (ED) Additional Instructions: Prescription for nausea medicine sent to pharmacy. Please do follow-up with your primary care physician in the next day or 2 for recheck. Return for pain, uncontrolled vomiting, bleeding, worsening or changing symptoms or other concerns. Prescriptions: Ondansetron Odt [Zofran Odt] 4 mg PO Q8HR PRN #10 tab PRN Reason: Nausea Is patient prescribed a controlled substance at d/c from ED?: No Referrals: Nonstaff,Physician [REFERRING] - 1-2 days Forms: Area PCPs Time of Disposition: 11:02
[2024-09-12] MEDS: ONDANSETRON 4 MG/2 ML VIAL IVP STA (08:03)
[2024-09-12] MEDS: SODIUM CHLORIDE 0.9% 1,000 ML IV STA ×2 (08:03→09:33)
[2024-09-12] MEDS: PANTOPRAZOLE 40 MG/10 ML VIAL IVP STA (08:06)
[2024-09-12 08:23] LABS: Basophils % (A) 0 %; Eosinophils # (A) 0.1 k/uL (0-0.7); Eosinophils % (A) 1 %; HCT 38.7 % (34.0-46.0); HGB 12.9 gm/dL (11.4-16.0); Lymphocytes # (A) 1.9 k/uL (1.0-4.8); Lymphocytes % (A) 30 %; MCH 30.4 pg (25.0-35.0); MCHC 33.4 g/dL (31.0-37.0); Mean Platelet Volume 7.2; Monocytes # (A) 0.4 k/uL (0-1.0); Monocytes % (A) 6 %; Neutrophils # (A) 3.8 k/uL (1.3-7.7); Neutrophils % (A) 61 %; Platelet Count 333 k/uL (150-450); RBC 4.25 m/uL (3.80-5.40); RDW 13.8 % (11.5-15.5); WBC 6.2 k/uL (3.8-10.6)
[2024-09-12 08:33] LABS: ALT 18 U/L (4-34); African American GFR (CKD) >90 (>60 ml/min/1.73 sqM); Amylase 49 U/L (30-110); Anion Gap 11 mmol/L; Blood Urea Nitrogen 13 mg/dL (7-17); Calcium 9.1 mg/dL (8.4-10.2); Carbon Dioxide 20 mmol/L (22-30); Chloride 106 mmol/L (98-107); Glucose 104 mg/dL (74-99); Lipase 70 U/L (23-300); Non-African American GFR(CKD) >90 (>60 ml/min/1.73 sqM); Sodium 137 mmol/L (137-145); Total Bilirubin 0.9 mg/dL (0.2-1.3)
[2024-09-12 08:42] LABS: INR 1.1 (<1.2); Partial Thromboplastin Time 26.8 sec (22.0-30.0); Prothrombin Time 12.2 sec (10.0-12.5)
[2024-09-12 09:14] LABS: AST 35 U/L (14-36); Albumin 4.3 g/dL (3.5-5.0); Potassium 4.5 mmol/L (3.5-5.1); Total Protein 7.2 g/dL (6.3-8.2)
[2024-09-12 09:15] LABS: Alkaline Phosphatase 90 U/L (38-126)
[2024-09-12] MEDS: ENALAPRILAT 1.25 MG/ML 1 ML VIAL IVP STA (09:32)
[2024-09-12 11:14] VITALS: BP 139/82; PULSE 74; TEMP 98.6
[2024-09-12 11:21] VITALS: RESP 16
[2024-09-12] MEDS: ONDANSETRON 4 MG ODT STARTER PACK 2 TAB BTL PO STA (11:34)
== END 2024-09-12 11:34 | disposition home or self-care (01) ==
LOC: EC 07:35
DX: R11.2 Nausea with vomiting, unspecified (principal); R19.7 Diarrhea, unspecified; F17.200 Nicotine dependence, unspecified, uncomplicated; Z88.0 Allergy status to penicillin
CPT/HCPCS: 36415; 93005; 80053; 82150; 83690; 85025; 85610; 85730; 82272; 99285; 96374; 96375; 96361; J2405; S0119; J2470

== ENCOUNTER 2024-09-13 11:23 | Emergency (ER) | payer OTHER ==
[2024-09-13 11:29] VITALS: TEMP 98
--- NOTE | 2024-09-13 11:42 | ED ---
Recheck HPI - General Chief Complaint: Recheck/Abnormal Lab/Rx Stated Complaint: Abd pain Time Seen by Provider: 09/13/24 11:30 Source: patient, RN notes reviewed Mode of arrival: wheelchair Limitations: no limitations - History of Present Illness Initial Comments: This is a 64-year-old female presenting to emergency room for reevaluation. Patient states that she was evaluated on 09/12/2024 for symptoms of abdominal pain, nausea vomiting and hematochezia. Patient states that she was provided with fluids and pain medication and Zofran Emergency Department and was discharged home in stable condition. She states that she was prescribed Zofran however was unable to obtain this medication at her pharmacy. States that she has been experiencing intermittent epigastric abdominal pain. She denies chest pain, shortness of breath, difficulty breathing, diarrhea constipation. Denies urinary complaints. - Related Data Home Medications Medication Instructions Recorded Confirmed Tamsulosin [Flomax] 0.4 mg PO DAILY 03/22/24 03/22/24 Zolpidem [Ambien] 10 mg PO HS 03/22/24 03/22/24 hydrOXYzine pamoate [Vistaril] 100 mg PO DIRECTED 03/22/24 03/22/24 lamoTRIgine [LaMICtal] 100 mg PO HS 03/22/24 03/22/24 tiZANidine [Zanaflex] 4 mg PO BID PRN 03/22/24 03/22/24 Previous Rx's Medication Instructions Recorded Aspirin 81 mg PO DAILY tab 03/26/24 Lurasidone [Latuda] 40 mg PO HS #30 tab 03/26/24 Ondansetron Odt [Zofran Odt] 4 mg PO Q8HR PRN #10 tab 09/12/24 Dicyclomine [Bentyl] 20 mg PO TID #30 tablet 09/13/24 Allergies Allergy/AdvReac Type Severity Reaction Status Date / Time Penicillins Allergy Unknown Rash/Hives/Itching Verified 09/13/24 11:26 all over body Review of Systems ROS Statement: Those systems with pertinent positive or pertinent negative responses have been documented in the HPI. ROS Other: All systems not noted in ROS Statement are negative. Past Medical History Past Medical History: Hyperlipidemia, Hypertension Additional Past Medical History / Comment(s): occ migraines, hemorrhoids, degenerative disks L4 and L5 History of Any Multi-Drug Resistant Organisms: None Reported Past Surgical History: Appendectomy, Section, Orthopedic Surgery Additional Past Surgical History / Comment(s): LEFT ARM (POST TRAUMATIC INJURY) reattached, RIGHT FOOT X3, LEFT KNEE ARTHROSCOPY, left oophorectomy, hemorroidectomy Past Anesthesia/Blood Transfusion Reactions: No Reported Reaction Past Psychological History: Anxiety, Bipolar, Depression, Panic Disorder Smoking Status: Current every day smoker Past Alcohol Use History: None Reported Past Drug Use History: None Reported - Past Family History Mother Family Medical History: No Reported History General Exam Limitations: no limitations General appearance: alert, in no apparent distress ENT exam: Present: normal exam, mucous membranes moist Neck exam: Present: normal inspection. Absent: tenderness, meningismus, lymphadenopathy Respiratory exam: Present: normal lung sounds bilaterally. Absent: respiratory distress, wheezes, rales, rhonchi, stridor Cardiovascular Exam: Present: regular rate, normal rhythm, normal heart sounds. Absent: systolic murmur, diastolic murmur, rubs, gallop, clicks GI/Abdominal exam: Present: soft, distended, normal bowel sounds. Absent: tenderness, guarding, rebound, rigid, pulsatile mass, hernia Extremities exam: Present: normal inspection, full ROM, normal capillary refill. Absent: tenderness, pedal edema, joint swelling, calf tenderness Back exam: Present: normal inspection Course Vital Signs 09/13/24 09/13/24 11:27 12:32 Temperature 98 F Pulse Rate 80 86 Respiratory 16 18 Rate Blood Pressure 172/102 173/98 O2 Sat by Pulse 100 100 Oximetry Medical Decision Making - Medical Decision Making Was pt. sent in by a medical professional or institution (, PA, LAST CHALKER, urgent care, hospital, or intermediate...) When possible be specific @ -No Did you speak to anyone other than the patient for history (EMS, parent, family, police, friend...)? What history was obtained from this source @ -No Did you review nursing and triage notes (agree or disagree)? Why? @ -I reviewed and agree with nursing and triage notes Were old charts reviewed (outside hosp., previous admission, EMS record, old EKG, old radiological studies, urgent care reports/EKG's, intermediate records)? Report findings @ -Reviewed patient's chart note from 09/12/2024 where she underwent extensive evaluation including cardiac enzymes which resulted in normal limits. Differential Diagnosis (chest pain, altered mental status, abdominal pain women, abdominal pain men, vaginal bleeding, weakness, fever, dyspnea, syncope, headache, dizziness, GI bleed, back pain, seizure, CVA, palpatations, mental health, musculoskeletal)? @ -Differential Abdominal Pain Women: Appendicitis, Cholecystitis, diverticulosis, ischemic bowel, pancreatitis, hepatitis, UTI, gastroenteritis, AAA, incarcerated hernia, bowel obstruction, constipation, inflammatory bowel, hepatitis, peptic ulcer disease, splenic infarction, perforated viscus, vulvitis, ovarian torsion, PID, kidney stone, placenta abruption, this is not meant to be an all-inclusive list EKG interpreted by me (3pts min.). @ -none X-rays interpreted by me (1pt min.). @ -None done CT interpreted by me (1pt min.). @ -None done U/S interpreted by me (1pt. min.). @ -None done What testing was considered but not performed or refused? (CT, X-rays, U/S, labs)? Why? @ -Laboratory testing was considered but deferred at this time. Patient had comprehensive evaluation completed within the last 24 hours with no acute findings. States that her symptoms are same and is presenting for medication prescription. What meds were considered but not given or refused? Why? @ -None Did you discuss the management of the patient with other professionals (professionals i.e. , PA, LAST CHALKER, lab, RT, psych nurse, social services analyst, rug touch up painter, teacher, systems support officer, case management coordinator)? Give summary @ -No Was smoking cessation discussed for >3mins.? @ -No Was critical care preformed (if so, how long)? @ -No Were there social determinants of health that impacted care today? How? (Homelessness, low income, unemployed, alcoholism, drug addiction, transportation, low edu. Level, literacy, decrease access to med. care, [facility], rehab)? @ -No Was there de-escalation of care discussed even if they declined (Discuss DNR or withdrawal of care, Hospice)? DNR status @ -No What co-morbidities impacted this encounter? (DM, HTN, Smoking, COPD, CAD, Cancer, CVA, ARF, Chemo, Hep., AIDS, mental health diagnosis, sleep apnea, morbid obesity)? @ -None Was patient admitted / discharged? Hospital course, mention meds given and route, prescriptions, significant lab abnormalities, going to OR and other pertinent info. @ -Discharge. 63-year-old female presenting for reevaluation. Patient is resting, no signs acute distress. Is noted to be mildly hypertensive on arrival with a blood pressure 172/102. Patient is provided with GI cocktail. Evaluation the patient she is requesting food states that she has not had anything to eat in over 24 hours. On reevaluation patient is resting comfortably and has had no episodes of emesis edition states that her nausea has resolved. Patient is provided with outpatient prescription for Bentyl to take as needed for abdominal pain and follow-up outpatient with primary care provider for further evaluation. Case discussed with Dr. Gonzalez Undiagnosed new problem with uncertain prognosis? @ -No Drug Therapy requiring intensive monitoring for toxicity (Heparin, Nitro, Insulin, Cardizem)? @ -No Were any procedures done? @ -No Diagnosis/symptom? @ -Abdominal pain and nausea Acute, or Chronic, or Acute on Chronic? @ -Acute Uncomplicated (without systemic symptoms) or Complicated (systemic symptoms)? @ -uncomplicated Side effects of treatment? @ -No Exacerbation, Progression, or Severe Exacerbation? @ -No Poses a threat to life or bodily function? How? (Chest pain, USA, [place], pneumonia, PE, COPD, DKA, ARF, appy, cholecystitis, CVA, Diverticulitis, Homicidal, Suicidal, threat to staff... and all critical care pts) @ -No Disposition Clinical Impression: Abdominal pain Disposition: HOME SELF-CARE Condition: Good Instructions (If sedation given, give patient instructions): Abdominal Pain (ED) Additional Instructions: Please return to the Emergency Department if symptoms worsen or any other concerns. Prescriptions: Dicyclomine [Bentyl] 20 mg PO TID #30 tablet Is patient prescribed a controlled substance at d/c from ED?: No Referrals: Kaycee Dinh DO [Primary Care Provider] - 1-2 days Time of Disposition: 12:11
[2024-09-13] MEDS: MAG HYDROX/AL HYDROX/SIMETH 30 ML, HYOSCYAMINE ELIXIR 10 ML, LIDOCAINE VISCOUS 2% 10 ML PO STA (11:56)
[2024-09-13 12:33] VITALS: BP 173/98; PULSE 86; RESP 18
== END 2024-09-13 12:33 | disposition home or self-care (01) ==
LOC: EC 11:23
DX: R10.9 Unspecified abdominal pain (principal); F17.200 Nicotine dependence, unspecified, uncomplicated; Z88.0 Allergy status to penicillin
CPT/HCPCS: 99284

== ENCOUNTER 2024-10-22 10:07 | Inpatient (IN) | payer MEDICARE, OTHER ==
--- NOTE | 2024-10-22 10:54 | ED ---
Abdominal Pain HPI - General Chief Complaint: Abdominal Pain Stated Complaint: Abd pain Time Seen by Provider: 10/22/24 10:51 Source: patient, EMS, RN notes reviewed Mode of arrival: EMS Limitations: no limitations - History of Present Illness Initial Comments: 64-year-old female presenting for right flank pain x 2 days. Describes a colicky, dull pain in the right flank that radiates to the lower right abdomen. Patient states she was evaluated in the emergency room last night with similar symptoms where they diagnosed her with a kidney stone and discharged her with urology follow-up. Patient states she has been unable to urinate since yesterday. Denies nausea, vomiting, fever. - Related Data Home Medications Medication Instructions Recorded Confirmed Tamsulosin [Flomax] 0.4 mg PO DAILY 03/22/24 03/22/24 Zolpidem [Ambien] 10 mg PO HS 03/22/24 03/22/24 hydrOXYzine pamoate [Vistaril] 100 mg PO DIRECTED 03/22/24 03/22/24 lamoTRIgine [LaMICtal] 100 mg PO HS 03/22/24 03/22/24 tiZANidine [Zanaflex] 4 mg PO BID PRN 03/22/24 03/22/24 Previous Rx's Medication Instructions Recorded Aspirin 81 mg PO DAILY tab 03/26/24 Lurasidone [Latuda] 40 mg PO HS #30 tab 03/26/24 Ondansetron Odt [Zofran Odt] 4 mg PO Q8HR PRN #10 tab 09/12/24 Dicyclomine [Bentyl] 20 mg PO TID #30 tablet 09/13/24 Cephalexin [Keflex] 500 mg PO Q12H 7 Days #14 cap 10/22/24 Ketorolac [Toradol] 10 mg PO Q8HR #15 tab 10/22/24 Allergies Allergy/AdvReac Type Severity Reaction Status Date / Time Penicillins Allergy Unknown Rash/Hives/Itching Verified 10/22/24 10:11 all over body Review of Systems ROS Statement: Those systems with pertinent positive or pertinent negative responses have been documented in the HPI. ROS Other: All systems not noted in ROS Statement are negative. Past Medical History Past Medical History: Hyperlipidemia, Hypertension Additional Past Medical History / Comment(s): occ migraines, hemorrhoids, degenerative disks L4 and L5 History of Any Multi-Drug Resistant Organisms: None Reported Past Surgical History: Appendectomy, Section, Orthopedic Surgery Additional Past Surgical History / Comment(s): LEFT ARM (POST TRAUMATIC INJURY) reattached, RIGHT FOOT X3, LEFT KNEE ARTHROSCOPY, left oophorectomy, hemorroidectomy Past Anesthesia/Blood Transfusion Reactions: No Reported Reaction Past Psychological History: Anxiety, Bipolar, Depression, Panic Disorder Smoking Status: Former smoker Past Alcohol Use History: None Reported Past Drug Use History: None Reported - Past Family History Mother Family Medical History: No Reported History General Exam Limitations: no limitations General appearance: alert, in no apparent distress Head exam: Present: atraumatic, normocephalic, normal inspection Respiratory exam: Present: normal lung sounds bilaterally. Absent: respiratory distress, wheezes, rales, rhonchi, stridor Cardiovascular Exam: Present: regular rate, normal rhythm, normal heart sounds. Absent: systolic murmur, diastolic murmur, rubs, gallop, clicks GI/Abdominal exam: Present: soft, normal bowel sounds. Absent: distended, tenderness, guarding, rebound, rigid Back exam: Absent: CVA tenderness (R), CVA tenderness (L) Neurological exam: Present: alert, oriented X3 Psychiatric exam: Present: normal affect, normal mood Skin exam: Present: warm, dry, intact, normal color. Absent: rash Course Vital Signs 10/22/24 10/22/24 10:09 17:02 Temperature 98 F Pulse Rate 73 61 Respiratory 16 16 Rate Blood Pressure 145/94 143/80 O2 Sat by Pulse 100 96 Oximetry Medical Decision Making - Medical Decision Making Was pt. sent in by a medical professional or institution (, PA, ERP MANAGER, urgent care, hospital, or shelter...) When possible be specific @ -No Did you speak to anyone other than the patient for history (EMS, parent, family, police, friend...)? What history was obtained from this source @ -No Did you review nursing and triage notes (agree or disagree)? Why? @ -I reviewed and agree with nursing and triage notes Were old charts reviewed (outside hosp., previous admission, EMS record, old EKG, old radiological studies, urgent care reports/EKG's, shelter records)? Report findings @ -Reviewed ER note and CT scan abdomen pelvis from yesterday which revealed nonobstructing 3 mm right upper pole renal stone, mild fecal retention, mild prominent small bowel, no bowel obstruction Differential Diagnosis (chest pain, altered mental status, abdominal pain women, abdominal pain men, vaginal bleeding, weakness, fever, dyspnea, syncope, headache, dizziness, GI bleed, back pain, seizure, CVA, palpatations, mental health, musculoskeletal)? @ -Differential Abdominal Pain Women: Appendicitis, Cholecystitis, diverticulosis, ischemic bowel, pancreatitis, hepatitis, UTI, gastroenteritis, AAA, incarcerated hernia, bowel obstruction, constipation, inflammatory bowel, hepatitis, peptic ulcer disease, splenic infarction, perforated viscus, vulvitis, ovarian torsion, PID, kidney stone, placenta abruption, this is not meant to be an all-inclusive list EKG interpreted by me (3pts min.). @ -None X-rays interpreted by me (1pt min.). @ -None done CT interpreted by me (1pt min.). @ -None done U/S interpreted by me (1pt. min.). @ -None done What testing was considered but not performed or refused? (CT, X-rays, U/S, labs)? Why? @ -None What meds were considered but not given or refused? Why? @ -None Did you discuss the management of the patient with other professionals (professionals i.e. , PA, ERP MANAGER, lab, RT, psych nurse, social media project manager, gang mower operator, teacher, aboriginal liaison officer, human services case manager)? Give summary @ -I spoke with Aryan from [facility] who accepts admission for intractable pain secondary to urinary tract infection and urinary retention Was smoking cessation discussed for >3mins.? @ -no Was critical care preformed (if so, how long)? @ -No Were there social determinants of health that impacted care today? How? (Homelessness, low income, unemployed, alcoholism, drug addiction, transportation, low edu. Level, literacy, decrease access to med. care, [facility], rehab)? @ -No Was there de-escalation of care discussed even if they declined (Discuss DNR or withdrawal of care, Hospice)? DNR status @ -No What co-morbidities impacted this encounter? (DM, HTN, Smoking, COPD, CAD, Cancer, CVA, ARF, Chemo, Hep., AIDS, mental health diagnosis, sleep apnea, morbid obesity)? @ -None Was patient admitted / discharged? Hospital course, mention meds given and route, prescriptions, significant lab abnormalities, going to OR and other pertinent info. @ -Admitted. This is a 64-year-old female presenting for right flank pain. Patient was provided with IV fluids and analgesics. Bladder scan reveals greater than 600 mL, therefore Abreu catheter was placed at this time. Lab work largely unremarkable. White blood cell count stable at 10.6. Urinalysis positive for nitrates highly indicative of urinary tract infection. Patient was provided an additional dose of pain medications as patient states her pain remains uncontrolled. Discussed diagnosis of urinary tract infection and urinary retention. I spoke with Aryan from [facility] who accepts admission for intractable pain secondary to urinary tract infection and urinary retention. Case was discussed with my ED attending Dr. Salazar. Undiagnosed new problem with uncertain prognosis? @ -No Drug Therapy requiring intensive monitoring for toxicity (Heparin, Nitro, Insulin, Cardizem)? @ -No Were any procedures done? @ -No Diagnosis/symptom? @ -Urinary tract infection, urinary retention Acute, or Chronic, or Acute on Chronic? @ -Acute Uncomplicated (without systemic symptoms) or Complicated (systemic symptoms)? @ -Complicated Side effects of treatment? @ -No Exacerbation, Progression, or Severe Exacerbation? @ -No Poses a threat to life or bodily function? How? (Chest pain, USA, IA, pneumonia, PE, COPD, DKA, ARF, appy, cholecystitis, CVA, Diverticulitis, Homicidal, Suicidal, threat to staff... and all critical care pts) @ -No - Lab Data Result diagrams: 10/22/24 14:03 10/22/24 14:03 Lab Results 10/22/24 10/22/24 10/22/24 Range/Units 14:03 14:03 14:03 WBC 10.6 (3.8-10.6) k/uL RBC 4.01 (3.80-5.40) m/uL Hgb 12.7 (11.4-16.0) gm/dL Hct 38.8 (34.0-46.0) % MCV 96.8 (80.0-100.0) fL MCH 31.6 (25.0-35.0) pg MCHC 32.6 (31.0-37.0) g/dL RDW 13.2 (11.5-15.5) % Plt Count 353 (150-450) k/uL MPV 7.1 Neutrophils % 56 % Lymphocytes % 36 % Monocytes % 4 % Eosinophils % 3 % Basophils % 1 % Neutrophils # 5.9 (1.3-7.7) k/uL Lymphocytes # 3.8 (1.0-4.8) k/uL Monocytes # 0.4 (0-1.0) k/uL Eosinophils # 0.3 (0-0.7) k/uL Basophils # 0.1 (0-0.2) k/uL Sodium 135 L (137-145) mmol/L Potassium 4.8 (3.5-5.1) mmol/L Chloride 106 (98-107) mmol/L Carbon Dioxide 21 L (22-30) mmol/L Anion Gap 8 mmol/L BUN 20 H (7-17) mg/dL Creatinine 0.60 (0.52-1.04) mg/dL Est GFR (CKD-EPI)AfAm >90 (>60 ml/min/1.73 sqM) Est GFR (CKD-EPI)NonAf >90 (>60 ml/min/1.73 sqM) Glucose 85 (74-99) mg/dL Plasma Lactic Acid Marcelino (0.7-2.0) mmol/L Calcium 9.3 (8.4-10.2) mg/dL Total Bilirubin 0.4 (0.2-1.3) mg/dL AST 27 (14-36) U/L ALT 22 (4-34) U/L Alkaline Phosphatase 97 (38-126) U/L Total Protein 5.9 L (6.3-8.2) g/dL Albumin 3.4 L (3.5-5.0) g/dL Urine Color Colorless Urine Appearance Clear (Clear) Urine pH 6.0 (5.0-8.0) Ur Specific [place] 1.011 (1.001-1.035) Urine Protein Negative (Negative) Urine Glucose (UA) Negative (Negative) Urine Ketones Negative (Negative) Urine Blood Negative (Negative) Urine Nitrite Positive H (Negative) Urine Bilirubin Negative (Negative) Urine Urobilinogen <2.0 (<2.0) mg/dL Ur Leukocyte Esterase Trace H (Negative) Urine RBC 1 (0-5) /hpf Urine WBC 2 (0-5) /hpf Ur Squamous Epith Cells <1 (0-4) /hpf Urine Bacteria Many H (None) /hpf Urine Mucus Occasional H (None) /hpf 10/22/24 Range/Units 14:03 WBC (3.8-10.6) k/uL RBC (3.80-5.40) m/uL Hgb (11.4-16.0) gm/dL Hct (34.0-46.0) % MCV (80.0-100.0) fL MCH (25.0-35.0) pg MCHC (31.0-37.0) g/dL RDW (11.5-15.5) % Plt Count (150-450) k/uL MPV Neutrophils % % Lymphocytes % % Monocytes % % Eosinophils % % Basophils % % Neutrophils # (1.3-7.7) k/uL Lymphocytes # (1.0-4.8) k/uL Monocytes # (0-1.0) k/uL Eosinophils # (0-0.7) k/uL Basophils # (0-0.2) k/uL Sodium (137-145) mmol/L Potassium (3.5-5.1) mmol/L Chloride (98-107) mmol/L Carbon Dioxide (22-30) mmol/L Anion Gap mmol/L BUN (7-17) mg/dL Creatinine (0.52-1.04) mg/dL Est GFR (CKD-EPI)AfAm (>60 ml/min/1.73 sqM) Est GFR (CKD-EPI)NonAf (>60 ml/min/1.73 sqM) Glucose (74-99) mg/dL Plasma Lactic Acid Marcelino 1.1 (0.7-2.0) mmol/L Calcium (8.4-10.2) mg/dL Total Bilirubin (0.2-1.3) mg/dL AST (14-36) U/L ALT (4-34) U/L Alkaline Phosphatase (38-126) U/L Total Protein (6.3-8.2) g/dL Albumin (3.5-5.0) g/dL Urine Color Urine Appearance (Clear) Urine pH (5.0-8.0) Ur Specific [place] (1.001-1.035) Urine Protein (Negative) Urine Glucose (UA) (Negative) Urine Ketones (Negative) Urine Blood (Negative) Urine Nitrite (Negative) Urine Bilirubin (Negative) Urine Urobilinogen (<2.0) mg/dL Ur Leukocyte Esterase (Negative) Urine RBC (0-5) /hpf Urine WBC (0-5) /hpf Ur Squamous Epith Cells (0-4) /hpf Urine Bacteria (None) /hpf Urine Mucus (None) /hpf Disposition Clinical Impression: Urinary tract infection, Urinary retention Disposition: ADMITTED IP TO THIS [facility] Time of Disposition: 16:05
[2024-10-22] MEDS: KETOROLAC 15 MG/ML 1 ML VIAL IVP STA ×2 (11:04→15:45)
[2024-10-22] MEDS: MORPHINE SULFATE 4 MG/ML SYRINGE IVP STA ×2 (11:05→17:48)
[2024-10-22] MEDS: SODIUM CHLORIDE 0.9% 1,000 ML IV STA (11:05)
[2024-10-22 14:12] LABS: Basophils # (A) 0.1 k/uL (0-0.2); Basophils % (A) 1 %; Eosinophils # (A) 0.3 k/uL (0-0.7); Eosinophils % (A) 3 %; HCT 38.8 % (34.0-46.0); HGB 12.7 gm/dL (11.4-16.0); Lymphocytes # (A) 3.8 k/uL (1.0-4.8); Lymphocytes % (A) 36 %; MCH 31.6 pg (25.0-35.0); MCHC 32.6 g/dL (31.0-37.0); MCV 96.8 fL (80.0-100.0); Mean Platelet Volume 7.1; Monocytes # (A) 0.4 k/uL (0-1.0); Monocytes % (A) 4 %; Neutrophils # (A) 5.9 k/uL (1.3-7.7); Neutrophils % (A) 56 %; Platelet Count 353 k/uL (150-450); RBC 4.01 m/uL (3.80-5.40); RDW 13.2 % (11.5-15.5); WBC 10.6 k/uL (3.8-10.6)
[2024-10-22 14:21] LABS: Appearance,Urine Clear (Clear); Bacteria,Urine Many /hpf; Bilirubin,Urine Negative (Negative); Blood,Urine Negative (Negative); Color,Urine Colorless; Glucose,Urine (UA) Negative (Negative); Ketones,Urine Negative (Negative); Leukocyte Esterase,Urine Trace (Negative); Mucus,Urine Occasional /hpf; Nitrite,Urine Positive (Negative); Protein,Urine Negative (Negative); RBC,Urine 1 /hpf (0-5); Specific Gravity,Urine 1.011 (1.001-1.035); Squamous Epithelial Cell,Urine <1 /hpf (0-4); Urobilinogen,Urine <2.0 mg/dL (<2.0); WBC,Urine 2 /hpf (0-5)
[2024-10-22 14:23] LABS: ALT 22 U/L (4-34); AST 27 U/L (14-36); African American GFR (CKD) >90 (>60 ml/min/1.73 sqM); Albumin 3.4 g/dL (3.5-5.0); Alkaline Phosphatase 97 U/L (38-126); Anion Gap 8 mmol/L; Blood Urea Nitrogen 20 mg/dL (7-17); Calcium 9.3 mg/dL (8.4-10.2); Carbon Dioxide 21 mmol/L (22-30); Chloride 106 mmol/L (98-107); Glucose 85 mg/dL (74-99); Non-African American GFR(CKD) >90 (>60 ml/min/1.73 sqM); Potassium 4.8 mmol/L (3.5-5.1); Sodium 135 mmol/L (137-145); Total Bilirubin 0.4 mg/dL (0.2-1.3); Total Protein 5.9 g/dL (6.3-8.2)
[2024-10-22] MEDS: CEPHALEXIN 500 MG CAP PO STA (16:54)
[2024-10-22] MEDS ORDERED: NALOXONE 0.4 MG/ML 1 ML VIAL IV PRN (17:33)
[2024-10-22] MEDS: SODIUM CHLORIDE 0.9% 1,000 ML IV SCH (17:48)
[2024-10-22] MEDS: MORPHINE SULFATE 4 MG/ML SYRINGE IV PRN (21:12)
[2024-10-23] MEDS: KETOROLAC 15 MG/ML 1 ML VIAL IVP PRN (00:07)
[2024-10-23] MEDS: BENZTROPINE MESYLATE 1 MG TAB PO PRN (00:09)
[2024-10-23] MEDS: ZOLPIDEM 5 MG TAB PO SCH (00:17)
[2024-10-23] MEDS: QUEtiapine 25 MG TAB PO PRN (00:18)
[2024-10-23] MEDS: ALPRAZolam 1 MG TAB PO SCH (00:18)
[2024-10-23] MEDS: ONDANSETRON 4 MG/2 ML VIAL IVP PRN (08:48)
--- NOTE | 2024-10-23 10:56 | P.HPIM ---
History of Present Illness H&P Date: 10/23/24 History of present illness; patient 64-year-old lady with past medical history significant for urinary retention who presented the ER because abdominal pain. Patient has been evaluated in the ER 3 times the last 10 days with similar complaints. Patient had a CT abdomen pelvis done showing nonobstructive renal stone. Patient was discharged on Zofran and pain medications. Patient stated that she has been having right-sided flank pain for the last 2 days, pain is intermittent, severe intensity and colicky in nature, denies any aggravating or relieving factor associated abdominal pain. There is no complaint of fever or chills. There is no current nausea, and vomiting. Patient has been noticing decreasing urine output and stated that she has not been urinating much. Because of the symptoms, she was evaluated in the ER a day ago and the resulting CT scan showed right-sided nonobstructing renal stone. Patient was discharged to follow-up outpatient with urologist but returned within 24 hours with similar complaints Initial lab work done in the ER showed WBC 10.6, hemoglobin 12.7, platelet count 353, sodium 134, potassium 4.8, BUN 20, creatinine 0.60, glucose 85, calcium 9.3, bilirubin 0.4, AST 27, ALT 22, UA positive for nitrite, urine WBC 2, CT abdomen pelvis done showed nonobstructing right 3 mm renal stone Patient admitted to internal medicine service REVIEW OF SYSTEMS: CONSTITUTIONAL: As mentioned above HEENT: No recent visual problems or hearing problems. Denied any sore throat. CARDIOVASCULAR: No chest pain, orthopnea, PND, no palpitations, no syncope. PULMONARY: No shortness of breath, no cough, no hemoptysis. GASTROINTESTINAL: As mentioned above NEUROLOGICAL: No headaches, no weakness, no numbness. HEMATOLOGICAL: Denies any bleeding or petechiae. GENITOURINARY: Denies any burning micturition, frequency, or urgency. MUSCULOSKELETAL/RHEUMATOLOGICAL: Denies any joint pain, swelling, or any muscle pain. ENDOCRINE: Denies any polyuria or polydipsia. The rest of the 14-point review of systems is negative. PHYSICAL EXAMINATION: GENERAL: The patient is alert and oriented x3, not in any acute distress. Well developed, well nourished. HEENT: Pupils are round and equally reacting to light. EOMI. No scleral icterus. No conjunctival pallor. Normocephalic, atraumatic. No pharyngeal erythema. No thyromegaly. CARDIOVASCULAR: S1 and S2 present. No murmurs, rubs, or gallops. PULMONARY: Chest is clear to auscultation, no wheezing or crackles. ABDOMEN: Soft, nontender, nondistended, normoactive bowel sounds. No palpable organomegaly. MUSCULOSKELETAL: No joint swelling or deformity. EXTREMITIES: No cyanosis, clubbing, or pedal edema. NEUROLOGICAL: Gross neurological examination did not reveal any focal deficits. SKIN: No rashes. Assessment and plan Abdominal pain UTI Nonobstructing right renal stone Anxiety History of bipolar disorder History of chronic back pain Monitor vital signs Monitor CBC Monitor CMP Ordered urine culture Ordered IV fluids ordered IV pain management Ordered IV Rocephin Resume home meds Consult neurology Labs and medication were reviewed.. Continue same treatment. Continue with symptomatic treatment. Resume home medication. Monitor labs and vitals. DVT and GI prophylaxis. Further recommendations as per clinical course of the patient Dictation was produced using [employer] dictation software. please excuse any grammatical, word or spelling errors. Past Medical History Past Medical History: Hyperlipidemia, Hypertension Additional Past Medical History / Comment(s): occ migraines, hemorrhoids, degenerative disks L4 and L5 History of Any Multi-Drug Resistant Organisms: None Reported Past Surgical History: Appendectomy, Section, Orthopedic Surgery Additional Past Surgical History / Comment(s): LEFT ARM (POST TRAUMATIC INJURY) reattached, RIGHT FOOT X3, LEFT KNEE ARTHROSCOPY, left oophorectomy, hemorroidectomy Past Anesthesia/Blood Transfusion Reactions: No Reported Reaction Past Psychological History: Anxiety, Bipolar, Depression, Panic Disorder Smoking Status: Former smoker Past Alcohol Use History: None Reported Past Drug Use History: None Reported - Past Family History Mother Family Medical History: No Reported History Medications and Allergies Home Medications Medication Instructions Recorded Confirmed Type Zolpidem [Ambien] 10 mg PO HS 03/22/24 10/22/24 History tiZANidine [Zanaflex] 4 mg PO DAILY 03/22/24 10/22/24 History ALPRAZolam [Xanax] 1 mg PO HS 10/22/24 10/22/24 History Benztropine Mesylate [Cogentin] 1 mg PO BID PRN 10/22/24 10/22/24 History Cephalexin [Keflex] 500 mg PO Q12H 7 Days #14 cap 10/22/24 Rx Ketorolac [Toradol] 10 mg PO Q8HR #15 tab 10/22/24 Rx OXcarbazepine [Trileptal] 300 mg PO TID 10/22/24 10/22/24 History Oxybutynin ER [Ditropan XL] 10 mg PO DAILY 10/22/24 10/22/24 History QUEtiapine FUMARATE [SEROquel] 25 mg PO HS PRN 10/22/24 10/22/24 History Allergies Allergy/AdvReac Type Severity Reaction Status Date / Time Penicillins Allergy Unknown Rash/Hives/Itching Verified 10/22/24 21:05 all over body clonidine AdvReac "Black Out" Verified 10/22/24 21:05 Physical Exam Vitals: Vital Signs Temp Pulse Resp BP Pulse Ox 10/23/24 08:03 97.6 F 56 L 22 122/78 98 10/23/24 04:40 70 22 123/71 95 10/23/24 02:32 67 18 100/60 94 L 10/23/24 00:20 97.8 F 68 19 144/81 96 10/22/24 21:18 64 20 101/62 97 10/22/24 17:02 61 16 143/80 96 10/22/24 10:09 98 F 73 16 145/94 100 Intake and Output 10/22/24 10/23/24 10/23/24 22:59 06:59 14:59 Output Total 840 1100 Balance -840 -1100 Output: Urine 840 1100 Results CBC & Chem 7: 10/22/24 14:03 10/22/24 14:03 Labs: Abnormal Lab Results - Last 24 Hours (Table) 10/22/24 10/22/24 Range/Units 14:03 14:03 Sodium 135 L (137-145) mmol/L Carbon Dioxide 21 L (22-30) mmol/L BUN 20 H (7-17) mg/dL Total Protein 5.9 L (6.3-8.2) g/dL Albumin 3.4 L (3.5-5.0) g/dL Urine Nitrite Positive H (Negative) Ur Leukocyte Esterase Trace H (Negative) Urine Bacteria Many H (None) /hpf Urine Mucus Occasional H (None) /hpf
--- NOTE | 2024-10-23 14:34 | P.GSCN ---
History of Present Illness Consult date: 10/23/24 History of present illness: 64-year-old female admitted to the hospital with abdominal pain on the right side. Apparently she has been in and out of the emergency room. She had a CAT scan identified 10 mm right renal stone. There is no evidence of hydronephrosis. There is no renal masses. There is no evidence of infection. We are asked see the patient. The patient denies hematuria. There is no evidence of infection. She has had no trauma. There is no nausea or vomiting. Her tenderness is actually above the right flank. Review of Systems All systems: negative - Constitutional Denies fever, Denies weight loss - EENT Eyes: denies blurred vision Ears, nose, mouth and throat: Denies dysphagia - Cardiovascular Denies chest pain, Denies shortness of breath - Respiratory Denies cough, Denies 7 - Gastrointestinal Reports as per HPI - Genitourinary Genitourinary: Denies dysuria, Denies hematuria - Integumentary Denies rash, Denies unusual bruising - Neurological Denies headaches, Denies syncope - Hematologic/Lymphatic Denies easy bleeding, Denies easy bruising Past Medical History Past Medical History: Hyperlipidemia, Hypertension Additional Past Medical History / Comment(s): occ migraines, hemorrhoids, degenerative disks L4 and L5 History of Any Multi-Drug Resistant Organisms: None Reported Past Surgical History: Appendectomy, Section, Orthopedic Surgery Additional Past Surgical History / Comment(s): LEFT ARM (POST TRAUMATIC INJURY) reattached, RIGHT FOOT X3, LEFT KNEE ARTHROSCOPY, left oophorectomy, hemorroidectomy Past Anesthesia/Blood Transfusion Reactions: No Reported Reaction Past Psychological History: Anxiety, Bipolar, Depression, Panic Disorder Smoking Status: Former smoker Past Alcohol Use History: None Reported Past Drug Use History: None Reported - Past Family History Mother Family Medical History: No Reported History Medications and Allergies Home Medications Medication Instructions Recorded Confirmed Type Zolpidem [Ambien] 10 mg PO HS 03/22/24 10/22/24 History tiZANidine [Zanaflex] 4 mg PO DAILY 03/22/24 10/22/24 History ALPRAZolam [Xanax] 1 mg PO HS 10/22/24 10/22/24 History Benztropine Mesylate [Cogentin] 1 mg PO BID PRN 10/22/24 10/22/24 History Cephalexin [Keflex] 500 mg PO Q12H 7 Days #14 cap 10/22/24 Rx Ketorolac [Toradol] 10 mg PO Q8HR #15 tab 10/22/24 Rx OXcarbazepine [Trileptal] 300 mg PO TID 10/22/24 10/22/24 History Oxybutynin ER [Ditropan XL] 10 mg PO DAILY 10/22/24 10/22/24 History QUEtiapine FUMARATE [SEROquel] 25 mg PO HS PRN 10/22/24 10/22/24 History Allergies Allergy/AdvReac Type Severity Reaction Status Date / Time Penicillins Allergy Unknown Rash/Hives/Itching Verified 10/22/24 21:05 all over body clonidine AdvReac "Black Out" Verified 10/22/24 21:05 Surgical - Exam Vital Signs Temp Pulse Resp BP Pulse Ox 98 F 73 16 145/94 100 10/22/24 10:09 10/22/24 10:09 10/22/24 10:09 10/22/24 10:09 10/22/24 10:09 - General well developed, well nourished, no distress - Eyes normal ocular movement, no icteric - ENT no hearing loss, no congestion - Neck no masses, trachea midline - Respiratory normal respiratory effort, clear to auscultation - Abdomen Abdomen: soft, non tender, no guarding, no rigid, no rebound - Genitourinary Mild tenderness in lower ribs and flank region above the level of the kidney and the right side.. - Integumentary no rash, no abnormal pigmentation - Neurologic no disoriented, no combative - Psychiatric oriented to time, oriented to person, oriented to place, speech is normal, memory intact Results - Labs 10/22/24 14:03 10/22/24 14:03 Abnormal Lab Results - Last 24 Hours (Table) 10/22/24 10/22/24 Range/Units 14:03 14:03 Sodium 135 L (137-145) mmol/L Carbon Dioxide 21 L (22-30) mmol/L BUN 20 H (7-17) mg/dL Total Protein 5.9 L (6.3-8.2) g/dL Albumin 3.4 L (3.5-5.0) g/dL Urine Nitrite Positive H (Negative) Ur Leukocyte Esterase Trace H (Negative) Urine Bacteria Many H (None) /hpf Urine Mucus Occasional H (None) /hpf Diabetes panel 10/22/24 Range/Units 14:03 Sodium 135 L (137-145) mmol/L Potassium 4.8 (3.5-5.1) mmol/L Chloride 106 (98-107) mmol/L Carbon Dioxide 21 L (22-30) mmol/L BUN 20 H (7-17) mg/dL Creatinine 0.60 (0.52-1.04) mg/dL Glucose 85 (74-99) mg/dL Calcium 9.3 (8.4-10.2) mg/dL AST 27 (14-36) U/L ALT 22 (4-34) U/L Alkaline Phosphatase 97 (38-126) U/L Total Protein 5.9 L (6.3-8.2) g/dL Albumin 3.4 L (3.5-5.0) g/dL Calcium panel 10/22/24 Range/Units 14:03 Calcium 9.3 (8.4-10.2) mg/dL Albumin 3.4 L (3.5-5.0) g/dL Pituitary panel 10/22/24 Range/Units 14:03 Sodium 135 L (137-145) mmol/L Potassium 4.8 (3.5-5.1) mmol/L Chloride 106 (98-107) mmol/L Carbon Dioxide 21 L (22-30) mmol/L BUN 20 H (7-17) mg/dL Creatinine 0.60 (0.52-1.04) mg/dL Glucose 85 (74-99) mg/dL Calcium 9.3 (8.4-10.2) mg/dL Adrenal panel 10/22/24 Range/Units 14:03 Sodium 135 L (137-145) mmol/L Potassium 4.8 (3.5-5.1) mmol/L Chloride 106 (98-107) mmol/L Carbon Dioxide 21 L (22-30) mmol/L BUN 20 H (7-17) mg/dL Creatinine 0.60 (0.52-1.04) mg/dL Glucose 85 (74-99) mg/dL Calcium 9.3 (8.4-10.2) mg/dL Total Bilirubin 0.4 (0.2-1.3) mg/dL AST 27 (14-36) U/L ALT 22 (4-34) U/L Alkaline Phosphatase 97 (38-126) U/L Total Protein 5.9 L (6.3-8.2) g/dL Albumin 3.4 L (3.5-5.0) g/dL - Imaging CT scan - abdomen: report reviewed, image reviewed CT scan - pelvis: report reviewed, image reviewed Assessment and Plan Assessment: Impression: Right back pain. Right renal stone. Recommendations: There is no emergent abnormality of the urinary system. She may benefit from shockwave lithotripsy electively down the road but regards to urgent urologic issues there are none. I do not have an explanation for the severe colic. Right renal stones can cause chronic pain but not severe colic
[2024-10-23] MEDS: OXcarbazepine 300 MG TAB PO SCH (15:19)
[2024-10-23] MEDS: HYDROmorphone 0.5 MG/0.5 ML SYRINGE IVP PRN (18:05)
[2024-10-24] MEDS ORDERED: tiZANidine 4 MG TAB PO SCH (09:00)
[2024-10-24] MEDS ORDERED: OXYBUTYNIN 10 MG TAB.ER.24 PO SCH (09:00)
--- NOTE | 2024-10-24 12:37 | P.PN ---
Subjective Progress Note Date: 10/24/24 patient 64-year-old lady with past medical history significant for urinary retention who presented the ER because abdominal pain. Patient has been evaluated in the ER 3 times the last 10 days with similar complaints. Patient had a CT abdomen pelvis done showing nonobstructive renal stone. Patient was discharged on Zofran and pain medications. Patient stated that she has been having right-sided flank pain for the last 2 days, pain is intermittent, severe intensity and colicky in nature, denies any aggravating or relieving factor associated abdominal pain. There is no complaint of fever or chills. There is no current nausea, and vomiting. Patient has been noticing decreasing urine output and stated that she has not been urinating much. Because of the symptoms, she was evaluated in the ER a day ago and the resulting CT scan showed right-sided nonobstructing renal stone. Patient was discharged to follow-up outpatient with urologist but returned within 24 hours with similar complaints Initial lab work done in the ER showed WBC 10.6, hemoglobin 12.7, platelet count 353, sodium 134, potassium 4.8, BUN 20, creatinine 0.60, glucose 85, calcium 9.3, bilirubin 0.4, AST 27, ALT 22, UA positive for nitrite, urine WBC 2, CT abdomen pelvis done showed nonobstructing right 3 mm renal stone Patient admitted to internal medicine service 10/24. Patient seen and examined. Still complaining of abdominal pain. Denies any nausea vomit REVIEW OF SYSTEMS: CONSTITUTIONAL: No fever, no malaise,. CARDIOVASCULAR: No chest pain, no palpitations, no syncope. PULMONARY: No shortness of breath, no cough, GASTROINTESTINAL: As mentioned above NEUROLOGICAL: No headaches, no weakness, PHYSICAL EXAMINATION: GENERAL: The patient is alert and oriented x3, not in any acute distress. Well developed, well nourished. HEENT: Pupils are round and equally reacting to light. EOMI. No scleral icterus. No conjunctival pallor. Normocephalic, atraumatic. No pharyngeal erythema. No thyromegaly. CARDIOVASCULAR: S1 and S2 present. No murmurs, rubs, or gallops. PULMONARY: Chest is clear to auscultation, no wheezing or crackles. ABDOMEN: Soft, nontender, nondistended, normoactive bowel sounds. No palpable organomegaly. MUSCULOSKELETAL: No joint swelling or deformity. EXTREMITIES: No cyanosis, clubbing, or pedal edema. NEUROLOGICAL: Gross neurological examination did not reveal any focal deficits. SKIN: No rashes. Assessment and plan Abdominal pain UTI Nonobstructing right renal stone Anxiety History of bipolar disorder History of chronic back pain Monitor vital signs Monitor CBC Monitor CMP Follow-up on urine cultures DC fluids Continue pain management Continue IV Rocephin Labs and medication were reviewed.. Continue same treatment. Continue with symptomatic treatment. Resume home medication. Monitor labs and vitals. DVT and GI prophylaxis. Further recommendations as per clinical course of the patient Dictation was produced using [employer] dictation software. please excuse any grammatical, word or spelling errors. Objective - Vital Signs Vital signs: Vital Signs Temp 98.2 F 10/24/24 07:25 Pulse 61 10/24/24 07:25 Resp 18 10/24/24 07:25 BP 112/68 10/24/24 07:25 Pulse Ox 98 10/24/24 07:25 FiO2 Intake & Output 10/23/24 10/24/24 10/24/24 18:59 06:59 18:59 Output Total 1800 850 Balance -1800 -850 Weight 52.163 kg Output: Urine 1800 850 Uretheral (Abreu) 700 Other: Voiding Method Indwelling Catheter Indwelling Catheter - Labs CBC & Chem 7: 10/22/24 14:03 10/22/24 14:03
--- NOTE | 2024-10-24 13:19 | P.PN ---
Subjective Progress Note Date: 10/24/24 The patient is in the hospital 4 to 5-day history of right back pain. We are asked to see because of a 10 mm nonobstructing renal stone. Objective - Vital Signs Vital signs: Vital Signs Temp 98.2 F 10/24/24 07:25 Pulse 61 10/24/24 07:25 Resp 18 10/24/24 07:25 BP 112/68 10/24/24 07:25 Pulse Ox 98 10/24/24 07:25 FiO2 Intake & Output 10/23/24 10/24/24 10/24/24 18:59 06:59 18:59 Output Total 1800 850 Balance -1800 -850 Weight 52.163 kg Output: Urine 1800 850 Uretheral (Abreu) 700 Other: Voiding Method Indwelling Catheter Indwelling Catheter - Gastrointestinal Gastrointestinal Comment(s): Tender right back above the flank. - Labs CBC & Chem 7: 10/22/24 14:03 10/22/24 14:03 Assessment and Plan Assessment: Impression: Right back pain. Kidney stone. Recommendations: It is unlikely that this kidney stone is causing the back pain and that is only 4 to 5 days old. There is no evidence of infection. There is no hydronephrosis. The fact that the stone is 10 mm means that been there at least several months. The pain only going on for 5 days and no evidence of obstruction my belief is that her pain is nonurologic. We can remove the stone at a later date but I do not think it is necessary for this pain. As I do not think it is the cause of this pain.
[2024-10-24] MEDS: HYDROmorphone 0.5 MG/0.5 ML SYRINGE IVP PRN (17:38)
[2024-10-25 07:06] LABS: ALT 15 U/L (4-34); AST 24 U/L (14-36); African American GFR (CKD) >90 (>60 ml/min/1.73 sqM); Albumin 3.2 g/dL (3.5-5.0); Albumin/Globulin Ratio 1.3; Alkaline Phosphatase 79 U/L (38-126); Anion Gap 8 mmol/L; Blood Urea Nitrogen 10 mg/dL (7-17); Calcium 8.9 mg/dL (8.4-10.2); Carbon Dioxide 29 mmol/L (22-30); Chloride 92 mmol/L (98-107); Globulin 2.4 g/dL; Glucose 93 mg/dL (74-99); Non-African American GFR(CKD) >90 (>60 ml/min/1.73 sqM); Potassium 4.2 mmol/L (3.5-5.1); Sodium 129 mmol/L (137-145); Total Bilirubin 0.3 mg/dL (0.2-1.3); Total Protein 5.6 g/dL (6.3-8.2)
[2024-10-25 09:44] LABS: Basophils # (A) 0.06 X 10*3/uL (0.00-0.10); Basophils % (A) 0.7 %; Eosinophils # (A) 0.24 X 10*3/uL (0.04-0.35); Eosinophils % (A) 2.7 %; HCT 36.1 % (37.2-46.3); HGB 11.9 g/dL (12.0-15.0); Lymphocytes # (A) 3.64 X 10*3/uL (0.90-5.00); Lymphocytes % (A) 40.9 %; MCH 31.4 pg (27.0-32.0); MCV 95.3 FL (80.0-97.0); Mean Platelet Volume 10.2 FL (9.5-12.2); Monocytes # (A) 0.49 X 10*3/uL (0.20-1.00); Monocytes % (A) 5.5 %; NRBC Per 100 WBC 0 X 10*3/uL (0.00-0.01); Neutrophils # (A) 4.44 X 10*3/uL (1.80-7.70); Platelet Count 285 X 10*3/uL (140-440); RBC 3.79 X 10*6/uL (4.10-5.20); RBC Morphology Normal (Normal); WBC 8.89 X 10*3/uL (4.50-10.00)
--- NOTE | 2024-10-25 10:57 | XR ---
EXAMINATION TYPE: XR thoracic spine 2V DATE OF EXAM: 10/25/2024 10:46 AM COMPARISON: None CLINICAL INDICATION: Female, 64 years old with history of pain; PHH, pain TECHNIQUE: XR thoracic spine 2V views of the spine in Frontal, swimmers and lateral projections. FINDINGS: No evidence of acute fracture. There is scattered multilevel disk space narrowing without loss of ve rtebral body height. There is normal alignment of the thoracic vertebral bodies. Scattered osteophyte formation along the anterior and lateral aspects of the vertebral bodies. Neural foramen are patent given limitations of this exam. Spinal canal appears patent. IMPRESSION: 1. No acute osseous pathology. 2. [id number] multilevel degeneration changes of the spine. [facility], , 10/25/2024 10:54 AM
--- NOTE | 2024-10-25 10:58 | XR ---
EXAMINATION TYPE: XR chest 1V portable DATE OF EXAM: 10/25/2024 10:45 AM COMPARISON: Chest radiographs from 03/22/2024 CLINICAL INDICATION: Female, 64 years old with history of shortness of breath; [facility] TECHNIQUE: XR chest 1V portable Frontal view of the chest. FINDINGS: Lungs/Pleura: There is no evidence of pleural effusion, focal consolidation, or pneumothorax. Pulmonary vascularity: Unremarkable. Heart/mediastinum: Cardiomediastinal silhouette is unremarkable. Atherosclerotic calcifications are seen in the aorta. Musculoskeletal: No acute osseous pathology. IMPRESSION: No acute cardiopulmonary disease/process. [facility], , 10/25/2024 10:55 AM
[2024-10-25] MEDS: TAMSULOSIN 0.4 MG CAP.ER.24H PO SCH (11:17)
--- NOTE | 2024-10-25 14:41 | P.PAINCN ---
History of Present Illness - Reason for Consult Consult date: 10/25/24 - History of Present Illness This is a 64 years old female who was admitted to [facility] because of severe right flank/abdominal pain, patient reported that the pain started almost 2 weeks ago, is constant localized in the right side lumbar thoracic area radiated to the right flank area, it is constant increased with deep breathing, patient denies any history of trauma she denies any history of falling on chest wall, patient reported that the pain increases with deep breathing, and also changing position, he has no complaint of fever or chills, patient had multiple evaluation in the emergency room, she had CT scan that showed that she had nonobstructing kidney stone, patient was admitted to [facility] and she was evaluated by urology department, It showed that the cause of the pain is not coming from the kidney stone, Review of Systems REVIEW OF SYSTEMS: CONSTITUTIONAL: As mentioned above HEENT: No recent visual problems or hearing problems. Denied any sore throat. CARDIOVASCULAR: No chest pain, orthopnea, PND, no palpitations, no syncope. PULMONARY: No shortness of breath, no cough, no hemoptysis. Complaining of right side chest wall pain with the deep breathing GASTROINTESTINAL: As mentioned above NEUROLOGICAL: No headaches, no weakness, no numbness. HEMATOLOGICAL: Denies any bleeding or petechiae. GENITOURINARY: Denies any burning micturition, frequency, or urgency. MUSCULOSKELETAL/RHEUMATOLOGICAL: Denies any joint pain, swelling, or any muscle pain. ENDOCRINE: Denies any polyuria or polydipsia. Past Medical History Past Medical History: Hyperlipidemia, Hypertension Additional Past Medical History / Comment(s): occ migraines, hemorrhoids, degenerative disks L4 and L5 History of Any Multi-Drug Resistant Organisms: None Reported Past Surgical History: Appendectomy, Section, Orthopedic Surgery Additional Past Surgical History / Comment(s): LEFT ARM (POST TRAUMATIC INJURY) reattached, RIGHT FOOT X3, LEFT KNEE ARTHROSCOPY, left oophorectomy, hemorroidectomy Past Anesthesia/Blood Transfusion Reactions: No Reported Reaction Past Psychological History: Anxiety, Bipolar, Depression, Panic Disorder Smoking Status: Former smoker Past Alcohol Use History: None Reported Additional Past Alcohol Use History / Comment(s): quit smoking 2015, smoked for 15 yrs, < 1 PPD Past Drug Use History: None Reported - Past Family History Mother Family Medical History: No Reported History Medications and Allergies Home Medications Medication Instructions Recorded Confirmed Type Zolpidem [Ambien] 10 mg PO HS 03/22/24 10/22/24 History tiZANidine [Zanaflex] 4 mg PO DAILY 03/22/24 10/22/24 History ALPRAZolam [Xanax] 1 mg PO HS 10/22/24 10/22/24 History Benztropine Mesylate [Cogentin] 1 mg PO BID PRN 10/22/24 10/22/24 History Cephalexin [Keflex] 500 mg PO Q12H 7 Days #14 cap 10/22/24 Rx Ketorolac [Toradol] 10 mg PO Q8HR #15 tab 10/22/24 Rx OXcarbazepine [Trileptal] 300 mg PO TID 10/22/24 10/22/24 History Oxybutynin ER [Ditropan XL] 10 mg PO DAILY 10/22/24 10/22/24 History QUEtiapine FUMARATE [SEROquel] 25 mg PO HS PRN 10/22/24 10/22/24 History Allergies Allergy/AdvReac Type Severity Reaction Status Date / Time Penicillins Allergy Unknown Rash/Hives/Itching Verified 10/22/24 21:05 all over body clonidine AdvReac "Black Out" Verified 10/22/24 21:05 Physical Exam Vitals: Vital Signs Temp Pulse Resp BP Pulse Ox 10/25/24 08:00 16 10/25/24 07:00 98.8 F 65 16 120/71 95 10/25/24 02:00 98.4 F 62 15 114/69 98 10/24/24 19:29 99.2 F 68 15 135/84 95 Intake and Output 10/24/24 10/25/24 10/25/24 22:59 06:59 14:59 Intake Total 118 Output Total 700 1400 Balance -582 -1400 Intake: Oral 118 Output: Urine 700 1400 Other: Voiding Method Indwelling Catheter Indwelling Catheter Indwelling Catheter # Bowel Movements 0 PHYSICAL EXAMINATION: GENERAL: The patient is alert and oriented x3, not in any acute distress. Well developed, well nourished. HEENT: Pupils are round and equally reacting to light. EOMI. No scleral icterus. No conjunctival pallor. Normocephalic, atraumatic. No pharyngeal erythema. No thyromegaly. CARDIOVASCULAR: S1 and S2 present. No murmurs, rubs, or gallops. PULMONARY: Chest is clear to auscultation, no wheezing or crackles. Patient has severe tenderness over the right side chest wall, no erythema no skin rash ABDOMEN: Soft, nontender, nondistended, normoactive bowel sounds. No palpable organomegaly. MUSCULOSKELETAL: No joint swelling or deformity. EXTREMITIES: No cyanosis, clubbing, or pedal edema. NEUROLOGICAL: Gross neurological examination did not reveal any focal deficits. SKIN: No rashes. Results CBC & Chem 7: 10/25/24 05:09 10/25/24 05:09 Labs: Abnormal Lab Results - Last 24 Hours (Table) 10/25/24 10/25/24 Range/Units 05:09 05:09 RBC 3.79 L (4.10-5.20) X 10*6/uL Hgb 11.9 L (12.0-15.0) g/dL Hct 36.1 L (37.2-46.3) % Sodium 129 L (137-145) mmol/L Chloride 92 L (98-107) mmol/L Total Protein 5.6 L (6.3-8.2) g/dL Albumin 3.2 L (3.5-5.0) g/dL Comments: Thoracic spine x-ray showed degenerative disc disease Assessment and Plan Plan: Assessment and plan=1-right side chest wall pain with radiation to the right flank area, mostly secondary to costochondritis at the lower rib area at T9-T12 She could benefit from course of NSAID, recommend patient to start on Toradol 15 mg every 8 hours, and once discharged she could benefit from Motrin 800 mg 3 times daily. Could benefit from Lidoderm patch 5% 12 hours on 12 hours off, patient can be discharged home and she can follow-up as an outpatient Time with Patient: Less than 30 PQRS Measure Charge Sheet - Pain Location Right Flank Non-Pharmacological Interventions: Distraction, Heat, Position/Reposition Pharmacological Interventions: Discuss Pain Med Options, PRN Medication PQRS Narrative: Smoking Status Current every day smoker Blood Pressure [Right Arm] 120/71 Blood Pressure [Left Arm] 120/69 Blood Pressure 113/62 Pain Intensity [Right Flank] 10 Pain Intensity 7 Pain Scale Used Numeric (1 - 10) Scale Used Numeric (1 - 10) Home Medications: Ambulatory Orders Zolpidem [Ambien] 10 mg PO HS 03/22/24 tiZANidine [Zanaflex] 4 mg PO DAILY 03/22/24 ALPRAZolam [Xanax] 1 mg PO HS 10/22/24 Benztropine Mesylate [Cogentin] 1 mg PO BID PRN 10/22/24 Cephalexin [Keflex] 500 mg PO Q12H 7 Days #14 cap 10/22/24 Ketorolac [Toradol] 10 mg PO Q8HR #15 tab 10/22/24 OXcarbazepine [Trileptal] 300 mg PO TID 10/22/24 Oxybutynin ER [Ditropan XL] 10 mg PO DAILY 10/22/24 QUEtiapine FUMARATE [SEROquel] 25 mg PO HS PRN 10/22/24
--- NOTE | 2024-10-25 14:54 | CT ---
EXAMINATION TYPE: CT thoracic spine wo con DATE OF EXAM: 10/25/2024 COMPARISON: None CLINICAL INDICATION: Female, 64 years old with history of possible hydronephrosis/ nephrolithiasis; P HH, Right flank pain. CT DLP: 1049.1 mGycm Automated exposure control for dose reduction was used. Findings: The thoracic vertebral segments are normal in height and alignment and there is no fracture or focal intrahepatic abnormality. There is mild spondylosis in the upper thoracic spine but the disc spaces are well preserved in heigh t. The paraspinal soft tissues unremarkable. There is no spinal stenosis or thoracic disc herniation. There is no bony neural foraminal encroachment. IMPRESSION: Mild degenerative changes in the mid and upper thoracic spine with no other significant abnormality s een. [facility], , 10/25/2024 2:52 PM
--- NOTE | 2024-10-25 15:03 | CT ---
EXAMINATION TYPE: CT abdomen pelvis wo con DATE OF EXAM: 10/25/2024 COMPARISON: 10/21/2024 CLINICAL INDICATION: Female, 64 years old with history of possible hydronephrosis/ nephrolithiasis; P HH, Right flank pain. TECHNIQUE: CT scan of the abdomen and pelvis is performed without oral or IV contrast. CT DLP: 595.[address] CTDI: mGy Automated exposure control for dose reduction was used. FINDINGS: Within the limitations of a non-contrast study, the following observations are made. There are small lower lobe infiltrates and tiny effusions, right greater than left Gallbladder is normal and there is no gallstone, wall thickening, pericholecystic fluid or distention . There is no biliary ductal dilatation. There is no organomegaly of the liver, pancreas, spleen or adrenal glands. There is stable 4 to 5 mm nonobstructing right renal calcification. There is one additional punctate calcification in the right kidney. There are no left renal calcifications. There is no hydronephrosis . The caliber of the abdominal aorta is normal and there is no retroperitoneal adenopathy or hemorrhage . The bowel loops are normal in caliber is no evidence of obstruction. No inflammatory changes are iden tified in the mesentery and there is no free intraperitoneal air or fluid. There is a large amount of stool from the cecum to the sigmoid colon. There is no pelvic mass, free fluid, abscess or adenopathy. The osseous structures and soft tissues are unremarkable. IMPRESSION: 1. Nonobstructing renal calcifications as described above. 2. Large stool burden within the colon but no bowel obstruction. 3. Small bibasilar infiltrates and tiny effusions, right greater than left. [facility], , 10/25/2024 3:00 PM
[2024-10-25] MEDS: LIDOCAINE 4% PATCH TOPICAL SCH (15:05)
[2024-10-25] MEDS: KETOROLAC 15 MG/ML 1 ML VIAL IVP SCH (15:09)
[2024-10-26] MEDS: LACTULOSE 20 GM/30 ML CUP PO SCH (05:19)
--- NOTE | 2024-10-26 05:55 | P.PN ---
Subjective Progress Note Date: 10/25/24 patient 64-year-old lady with past medical history significant for urinary retention who presented the ER because abdominal pain. Patient has been evaluated in the ER 3 times the last 10 days with similar complaints. Patient had a CT abdomen pelvis done showing nonobstructive renal stone. Patient was discharged on Zofran and pain medications. Patient stated that she has been having right-sided flank pain for the last 2 days, pain is intermittent, severe intensity and colicky in nature, denies any aggravating or relieving factor associated abdominal pain. There is no complaint of fever or chills. There is no current nausea, and vomiting. Patient has been noticing decreasing urine output and stated that she has not been urinating much. Because of the symptoms, she was evaluated in the ER a day ago and the resulting CT scan showed right-sided nonobstructing renal stone. Patient was discharged to follow-up outpatient with urologist but returned within 24 hours with similar complaints Initial lab work done in the ER showed WBC 10.6, hemoglobin 12.7, platelet count 353, sodium 134, potassium 4.8, BUN 20, creatinine 0.60, glucose 85, calcium 9.3, bilirubin 0.4, AST 27, ALT 22, UA positive for nitrite, urine WBC 2, CT abdomen pelvis done showed nonobstructing right 3 mm renal stone Patient admitted to internal medicine service 10/24. Patient seen and examined. Still complaining of abdominal pain. Denies any nausea vomit 10/25/2024 Patient is seen and evaluated in follow-up continuing to report severe 10/10 pain and per nursing staff patient has been requesting Dilaudid ar [id number]. Will consult pain management for further evaluation as patient reports she cannot return home in this much pain. Patient was evaluated by urology noted to have a ureteral stone that is nonobstructing recommending outpatient follow-up. Patient is continued on antibiotics and will continue for now with concerns of urinary tract infection. Patient is afebrile with no reported chest pain or shortness of breath. Patient reports to some nausea but has been tolerating diet. Encouraged increase activity as tolerated and will await pain management consult REVIEW OF SYSTEMS: CONSTITUTIONAL: No fever, no malaise,. CARDIOVASCULAR: No chest pain, no palpitations, no syncope. PULMONARY: No shortness of breath, no cough GASTROINTESTINAL: As mentioned above NEUROLOGICAL: No headaches, no weakness, reports of severe back pain PHYSICAL EXAMINATION: GENERAL: The patient is alert and oriented x3. Well developed, well nourished. HEENT: Pupils are round and equally reacting to light. EOMI. No scleral icterus. No conjunctival pallor. Normocephalic, atraumatic. No pharyngeal erythema. No thyromegaly. CARDIOVASCULAR: S1 and S2 present. No murmurs, rubs, or gallops. PULMONARY: Chest is clear to auscultation, no wheezing or crackles. ABDOMEN: Soft, nontender, nondistended, normoactive bowel sounds. No palpable organomegaly. MUSCULOSKELETAL: No joint swelling or deformity. EXTREMITIES: No cyanosis, clubbing, or pedal edema. NEUROLOGICAL: Gross neurological examination did not reveal any focal deficits. SKIN: No rashes. Assessment: Abdominal pain, multifactorial possibly secondary to urinary tract infection as well as large stool burden noted on CT UTI, present on admission Nonobstructing right renal stone History of anxiety History of bipolar disorder History of chronic back pain GI prophylaxis DVT prophylaxis Full code Plan: Patient was seen and evaluated by urology reporting her pain is not secondary to this 5-10 mm nonobstructing stone. Recommends outpatient follow-up Pain management consulted as patient is on [id number] IV Dilaudid and repo rts her pain is continuously 10/10. CT ordered per pain management and recommend Toradol with lidocaine patch and will await CT report and reevaluation Recommend PT/OT therapy and increase activity as tolerated Recommend bowel regimen scheduled as well as as needed Probable discharge in the next 24 hours The impression and plan of care has been dictated by Nurse Kar Pra ctitioner as directed. Dr. Beth MD I have performed a history and examination and MDM of this patient, discussed the same with the dictator, and agree with the dictator's assessment and plan as written ,documented as a scribe. Based on total visit time, I have performed more than 50% of the visit. Objective - Vital Signs Vital signs: Vital Signs Temp 98.8 F 10/25/24 07:00 Pulse 65 10/25/24 07:00 Resp 16 10/25/24 07:00 BP 120/71 10/25/24 07:00 Pulse Ox 95 10/25/24 07:00 FiO2 Intake & Output 10/24/24 10/25/24 10/25/24 18:59 06:59 18:59 Intake Total 286 Output Total 700 1400 Balance -414 -1400 Intake: Oral 286 Output: Urine 700 1400 Other: Voiding Method Indwelling Catheter Indwelling Catheter # Bowel Movements 0 - Labs CBC & Chem 7: 10/25/24 05:09 10/25/24 05:09 Labs: Abnormal Lab Results - Last 24 Hours (Table) 10/25/24 10/25/24 Range/Units 05:09 05:09 RBC 3.79 L (4.10-5.20) X 10*6/uL Hgb 11.9 L (12.0-15.0) g/dL Hct 36.1 L (37.2-46.3) % Sodium 129 L (137-145) mmol/L Chloride 92 L (98-107) mmol/L Total Protein 5.6 L (6.3-8.2) g/dL Albumin 3.2 L (3.5-5.0) g/dL
[2024-10-26] MEDS: SENNOSIDES 8.6 MG TAB PO SCH (08:16)
[2024-10-26 09:42] LABS: African American GFR (CKD) >90 (>60 ml/min/1.73 sqM); Anion Gap 7 mmol/L; Blood Urea Nitrogen 9 mg/dL (7-17); Calcium 9.1 mg/dL (8.4-10.2); Carbon Dioxide 25 mmol/L (22-30); Chloride 87 mmol/L (98-107); Glucose 130 mg/dL (74-99); Non-African American GFR(CKD) >90 (>60 ml/min/1.73 sqM); Potassium 4.9 mmol/L (3.5-5.1)
[2024-10-26 09:47] LABS: Sodium 119 mmol/L (137-145)
[2024-10-26] MEDS: bisacodyL 10 MG SUPP RECTAL STA (13:19)
--- NOTE | 2024-10-26 13:30 | P.PN ---
Subjective Progress Note Date: 10/26/24 patient 64-year-old lady with past medical history significant for urinary retention who presented the ER because abdominal pain. Patient has been evaluated in the ER 3 times the last 10 days with similar complaints. Patient had a CT abdomen pelvis done showing nonobstructive renal stone. Patient was d ischarged on Zofran and pain medications. Patient stated that she has been having right-sided flank pain for the last 2 days, pain is intermittent, severe intensity and colicky in nature, denies any aggravating or relieving factor associated abdominal pain. There is no complaint of fever or chills. There is no current nausea, and vomiting. Patient has been noticing decreasing urine output and stated that she has not been urinating much. Because of the symptoms, she was evaluated in the ER a day ago and the resulting CT scan showed right-sided nonobstructing renal stone. Patient was discharged to follow-up outpatient with urologist but returned within 24 hours with similar complaints Initial lab work done in the ER showed WBC 10.6, hemoglobin 12.7, platelet count 353, sodium 134, potassium 4.8, BUN 20, creatinine 0.60, glucose 85, calcium 9.3, bilirubin 0.4, AST 27, ALT 22, UA positive for nitrite, urine WBC 2, CT abdomen pelvis done showed nonobstructing right 3 mm renal stone Patient admitted to internal medicine service 10/24. Patient seen and examined. Still complaining of abdominal pain. Denies any nausea vomit 10/25/2024 Patient is seen and evaluated in follow-up continuing to report severe 10/10 pain and per nursing staff patient has been requesting Dilaudid around -the-clock. Will consult pain management for further evaluation as patient reports she cannot return home in this much pain. Patient was evaluated by urology noted to have a ureteral stone that is nonobstructing recommending outpatient follow-up. Patient is continued on antibiotics and will continue for now with concerns of urinary tract infection. Patient is afebrile with no reported chest pain or shortness of breath. Patient reports to some nausea but has been tolerating diet. Encouraged increase activity as tolerated and will await pain management consult 10/26/2024 Evaluated today sitting up in the bed she is continuing to report right sided mid back pain that is wrapping around to the front. It is quite tender to palpate and patient is crying out and states that she is unable to get comfortable. She is requesting IV Dilaudid every 3 hours states the Toradol did not help and is refusing [place]. She was evaluated by pain management who felt this could have been a costochondritis and recommending NSAID therapy patient states that it is not helping. Abdominal pelvis CT shows nonobstructing 4 to 5 mm nonobstructing right renal calcification. And there is additional punctuate calcification of the right kidney there is no left renal calcifications and there is no hydronephrosis. There is large stool burden. Small bibasilar infiltrates and tiny effusions on the right greater than the left. Remains on IV ceftriaxone for acute urinary tract infection. REVIEW OF SYSTEMS: CONSTITUTIONAL: No fever, no malaise,. CARDIOVASCULAR: No chest pain, no palpitations, no syncope. PULMONARY: No shortness of breath, no cough GASTROINTESTINAL: As mentioned above NEUROLOGICAL: No headaches, no weakness, reports of severe back pain PHYSICAL EXAMINATION: GENERAL: The patient is alert and oriented x3. Well developed, well nourished. HEENT: Pupils are round and equally reacting to light. EOMI. No scleral icterus. No conjunctival pallor. Normocephalic, atraumatic. No pharyngeal erythema. No thyromegaly. CARDIOVASCULAR: S1 and S2 present. No murmurs, rubs, or gallops. PULMONARY: Chest is clear to auscultation, no wheezing or crackles. ABDOMEN: Soft, nontender, nondistended, normoactive bowel sounds. No palpable organomegaly. MUSCULOSKELETAL: No joint swelling or deformity. EXTREMITIES: No cyanosis, clubbing, or pedal edema. NEUROLOGICAL: Gross neurological examination did not reveal any focal deficits. SKIN: No rashes. 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 Nonobstructing right renal stone History of anxiety History of bipolar disorder History of chronic back pain GI prophylaxis DVT prophylaxis Full code Plan: Patient was seen and evaluated by urology reporting her pain is not secondary to this 5-10 mm nonobstructing stone. Recommends outpatient follow-up Pain management consulted as patient is on [id number] IV Dilaudid and reports her pain is continuously 10/10. Continue on norco and IV toradol and awaiting CT review by pain management. Recommend PT/OT therapy and increase activity as tolerated Recommend bowel regimen scheduled as well as as needed Patient to be inpatient status due to the hyponatremia Nephrology consultation Check THS, serum osmolality, AM cortisol level check urine sodium, osmolality and creatinine levels Repeat sodium this afternoon The impression and plan of care has been dictated by Dilcia Renteria Nurse Practitioner as directed. Dr. Beth MD I have performed a history and examination and MDM of this patient, discussed th e same with the dictator, and agree with the dictator's assessment and plan as written ,documented as a scribe. Based on total visit time, I have performed more than 50% of the visit. Objective - Vital Signs Vital signs: Vital Signs Temp 98 F 10/26/24 07:00 Pulse 100 10/26/24 07:00 Resp 16 10/26/24 07:00 BP 151/80 10/26/24 07:00 Pulse Ox 98 10/26/24 07:00 FiO2 Intake & Output 10/25/24 10/26/24 10/26/24 18:59 06:59 18:59 Intake Total 498 Output Total 200 Balance 298 Intake: Oral 498 Output: Urine 200 Other: Voiding Method Indwelling Catheter Toilet # Voids 1 - Labs CBC & Chem 7: 10/25/24 05:09 10/26/24 08:50 Labs: Abnormal Lab Results - Last 24 Hours (Table) 10/26/24 Range/Units 08:50 Sodium 119 L* (137-145) mmol/L Chloride 87 L (98-107) mmol/L Creatinine 0.49 L (0.52-1.04) mg/dL Glucose 130 H (74-99) mg/dL Assessment and Plan Time with Patient: Less than 30
[2024-10-26 13:35] LABS: African American GFR (CKD) >90 (>60 ml/min/1.73 sqM); Anion Gap 8 mmol/L; Blood Urea Nitrogen 8 mg/dL (7-17); Calcium 9.2 mg/dL (8.4-10.2); Carbon Dioxide 24 mmol/L (22-30); Chloride 87 mmol/L (98-107); Glucose 102 mg/dL (74-99); Non-African American GFR(CKD) >90 (>60 ml/min/1.73 sqM); Potassium 4.2 mmol/L (3.5-5.1)
[2024-10-26 13:52] LABS: Sodium 119 mmol/L (137-145)
[2024-10-26] MEDS: ACETAMINOPHEN TAB 325 MG TAB PO PRN (14:20)
[2024-10-26] MEDS: SODIUM CHLORIDE TAB 1 GM TAB PO STA (14:21)
[2024-10-26] MEDS: SODIUM CHLORIDE 0.9% 1,000 ML IV SCH ×2 (14:24→15:45)
[2024-10-26 14:38] LABS: T4, Free (Free Thyroxine) 0.96 ng/dL (0.78-2.19)
[2024-10-26 15:31] LABS: Creatinine,Urine Random 39.1 mg/dL
[2024-10-26] MEDS: HYDROcodone/APAP 5-325MG 1 EACH TAB PO PRN (16:24)
[2024-10-26 18:55] LABS: African American GFR (CKD) >90 (>60 ml/min/1.73 sqM); Anion Gap 10 mmol/L; Blood Urea Nitrogen 11 mg/dL (7-17); Calcium 8.9 mg/dL (8.4-10.2); Carbon Dioxide 24 mmol/L (22-30); Chloride 85 mmol/L (98-107); Glucose 108 mg/dL (74-99); Non-African American GFR(CKD) >90 (>60 ml/min/1.73 sqM); Potassium 4.2 mmol/L (3.5-5.1)
[2024-10-26 18:57] LABS: Sodium 119 mmol/L (137-145)
[2024-10-26 20:25] LABS: Glucose,Whole Blood 173 mg/dL (70-110)
[2024-10-26] MEDS: KETOROLAC 15 MG/ML 1 ML VIAL IVP PRN (20:42)
[2024-10-26] MEDS: SODIUM CHLORIDE 3%(HYPERTONIC) 500 ML IV ONE (21:15)
[2024-10-27 04:38] LABS: Basophils % (A) 1 %; Eosinophils # (A) 0.3 k/uL (0-0.7); Eosinophils % (A) 6 %; HCT 34.5 % (34.0-46.0); HGB 12.2 gm/dL (11.4-16.0); Lymphocytes # (A) 2.1 k/uL (1.0-4.8); Lymphocytes % (A) 43 %; MCHC 35.4 g/dL (31.0-37.0); MCV 93.1 fL (80.0-100.0); Mean Platelet Volume 7.5; Monocytes # (A) 0.3 k/uL (0-1.0); Monocytes % (A) 5 %; Neutrophils # (A) 2.1 k/uL (1.3-7.7); Neutrophils % (A) 43 %; Platelet Count 286 k/uL (150-450); RBC 3.71 m/uL (3.80-5.40); RDW 12.6 % (11.5-15.5); WBC 4.9 k/uL (3.8-10.6)
[2024-10-27 04:51] LABS: African American GFR (CKD) >90 (>60 ml/min/1.73 sqM); Anion Gap 8 mmol/L; Blood Urea Nitrogen 13 mg/dL (7-17); Calcium 8.9 mg/dL (8.4-10.2); Carbon Dioxide 23 mmol/L (22-30); Chloride 91 mmol/L (98-107); Glucose 87 mg/dL (74-99); Non-African American GFR(CKD) >90 (>60 ml/min/1.73 sqM); Potassium 3.8 mmol/L (3.5-5.1); Sodium 122 mmol/L (137-145)
[2024-10-27] MEDS ORDERED: Potassium Replacement Protocol 1 EACH MISC MISCELLANE PRN (05:43)
[2024-10-27] MEDS: POTASSIUM CHLORIDE ER 20 MEQ TAB.ER PO SCH (05:55)
[2024-10-27] MEDS: HEPARIN SODIUM,PORCINE 5,000 UNIT/ML 1 ML VIAL SQ SCH (11:19)
--- NOTE | 2024-10-27 11:25 | P.NPCON ---
History of Present Illness - Reason for Consult hyponatremia - History of Present Illness Patient is a 64-year-old female with history of nephrolithiasis who is admitted to the hospital with complaints of abdominal pain mostly on the right side. Patient stated that the pain is quite severe and associated with pressure in the bladder. CT scan showed right-sided nonobstructive kidney stone about 4 to 5 m m. Patient has been evaluated by urology. Maintained on Toradol for pain along with Flomax. Serum sodium was 135 on admission and dropped to 129 the next day and subsequently down to 119 yesterday. Patient received a liter bolus of normal saline in the ER. She has received 3-4 doses of Toradol. Started on 3% saline yesterday due to the acute drop in the sodium. Serum sodium at 122 today No mental status changes. No complaints of numbness or tingling. Patient continues to have pain in the abdominal area and is asking for pain medications. She denies using Toradol at home. She does have a history of anxiety. Past Medical History Past Medical History: Hyperlipidemia, Hypertension Additional Past Medical History / Comment(s): occ migraines, hemorrhoids, degenerative disks L4 and L5 History of Any Multi-Drug Resistant Organisms: None Reported Past Surgical History: Appendectomy, Section, Orthopedic Surgery Additional Past Surgical History / Comment(s): LEFT ARM (POST TRAUMATIC INJURY) reattached, RIGHT FOOT X3, LEFT KNEE ARTHROSCOPY, left oophorectomy, hemorroidectomy Past Anesthesia/Blood Transfusion Reactions: No Reported Reaction Past Psychological History: Anxiety, Bipolar, Depression, Panic Disorder Smoking Status: Former smoker Past Alcohol Use History: None Reported Additional Past Alcohol Use History / Comment(s): quit smoking 2015, smoked for 15 yrs, < 1 PPD Past Drug Use History: None Reported - Past Family History Mother Family Medical History: No Reported History Medications and Allergies Home Medications Medication Instructions Recorded Confirmed Type Zolpidem [Ambien] 10 mg PO HS 03/22/24 10/22/24 History tiZANidine [Zanaflex] 4 mg PO DAILY 03/22/24 10/22/24 History ALPRAZolam [Xanax] 1 mg PO HS 10/22/24 10/22/24 History Benztropine Mesylate [Cogentin] 1 mg PO BID PRN 10/22/24 10/22/24 History Cephalexin [Keflex] 500 mg PO Q12H 7 Days #14 cap 10/22/24 Rx Ketorolac [Toradol] 10 mg PO Q8HR #15 tab 10/22/24 Rx OXcarbazepine [Trileptal] 300 mg PO TID 10/22/24 10/22/24 History Oxybutynin ER [Ditropan XL] 10 mg PO DAILY 10/22/24 10/22/24 History QUEtiapine FUMARATE [SEROquel] 25 mg PO HS PRN 10/22/24 10/22/24 History Allergies Allergy/AdvReac Type Severity Reaction Status Date / Time Penicillins Allergy Unknown Rash/Hives/Itching Verified 10/22/24 21:05 all over body clonidine AdvReac "Black Out" Verified 10/22/24 21:05 Physical Exam Vitals: Vital Signs Temp Pulse Pulse Resp BP BP Pulse Ox 10/27/24 07:00 57 L 12 128/61 96 10/27/24 06:00 58 L 14 111/66 94 L 10/27/24 05:00 58 L 11 L 136/78 98 10/27/24 04:00 98.1 F 58 L 11 L 118/87 95 10/27/24 03:00 55 L 13 121/77 97 10/27/24 02:00 57 L 10 L 126/80 96 10/27/24 01:00 60 5 L 114/68 97 10/27/24 00:00 96.5 F L 63 4 L 120/81 96 10/26/24 23:00 63 14 134/89 95 10/26/24 22:00 65 10 L 157/84 98 10/26/24 21:10 68 47 H 157/84 96 10/26/24 21:00 68 13 97 10/26/24 20:20 97.6 F 71 19 98 10/26/24 18:47 97.9 F 65 20 106/61 95 10/26/24 14:08 97.8 F 65 16 159/85 94 L 10/26/24 14:00 65 16 Intake and Output 10/26/24 10/27/24 10/27/24 22:59 06:59 14:59 Intake Total 840 200 25 Output Total 175 230 15 Balance 665 -30 10 Intake: IV 50 200 25 Sodium Chloride 3%( 50 200 25 Hypertonic) 500 ml @ 25 mls/hr IV .Q20H ONE Rx#: [id number] Oral 790 Output: Urine 175 230 15 Other: Voiding Method Indwelling Catheter Indwelling Catheter # Bowel Movements 1 Weight 52.3 kg Patient is awake, no acute distress Examination of the heart S1 and S2 Examination of the lungs bilateral breath sounds are heard Abdomen is soft Examination of lower extremities shows no edema EMERGENCY DEPARTMENT exam grossly intact Results - Lab Results Most recent lab results Calcium 8.9 mg/dL (8.4-10.2) 10/27/24 03:57 10/27/24 03:57 10/27/24 08:15 Assessment and Plan Assessment: 1. Hyponatremia, most likely related to SIADH with acute drop in serum sodium post normal saline bolus. Patient has also been maintained on NSAIDs which can contribute to hyponatremia. Urine osmolality was 518 and random urine sodium was 182. Currently maintained on 3% saline which I will continue. 2. Abdominal/ back pain 3. Right renal calculus 4 to 5 mm, nonobstructive, not believed to be the cause of the pain at this time. Patient is being followed by urology. 4. History of anxiety Plan: Continue with 3% saline. Add 1 dose of [place] if serum sodium not further improved on the next draw. Continue with every 4 hours serum sodium checks
[2024-10-27] MEDS: ALPRAZolam 0.25 MG TAB PO STA (11:46)
[2024-10-27] MEDS: HYDROcodone/APAP 7.5-325MG 1 EACH TAB PO PRN (14:54)
[2024-10-27] MEDS: ALPRAZolam 0.5 MG TAB PO STA (14:54)
[2024-10-27] MEDS: TOLVAPTAN 15 MG TABLET PO ONE (17:43)
[2024-10-27] MEDS: SODIUM CHLORIDE TAB 1 GM TAB PO STA (18:12)
--- NOTE | 2024-10-27 18:53 | P.PN ---
Subjective Progress Note Date: 10/27/24 patient 64-year-old lady with past medical history significant for urinary retention who presented the ER because abdominal pain. Patient has been evaluated in the ER 3 times the last 10 days with similar complaints. Patient had a CT abdomen pelvis done showing nonobstructive renal stone. Patient was d ischarged on Zofran and pain medications. Patient stated that she has been having right-sided flank pain for the last 2 days, pain is intermittent, severe intensity and colicky in nature, denies any aggravating or relieving factor associated abdominal pain. There is no complaint of fever or chills. There is no current nausea, and vomiting. Patient has been noticing decreasing urine output and stated that she has not been urinating much. Because of the symptoms, she was evaluated in the ER a day ago and the resulting CT scan showed right-sided nonobstructing renal stone. Patient was discharged to follow-up outpatient with urologist but returned within 24 hours with similar complaints Initial lab work done in the ER showed WBC 10.6, hemoglobin 12.7, platelet count 353, sodium 134, potassium 4.8, BUN 20, creatinine 0.60, glucose 85, calcium 9.3, bilirubin 0.4, AST 27, ALT 22, UA positive for nitrite, urine WBC 2, CT abdomen pelvis done showed nonobstructing right 3 mm renal stone Patient admitted to internal medicine service 10/24. Patient seen and examined. Still complaining of abdominal pain. Denies any nausea vomit 10/25/2024 Patient is seen and evaluated in follow-up continuing to report severe 10/10 pain and per nursing staff patient has been requesting Dilaudid around -the-clock. Will consult pain management for further evaluation as patient reports she cannot return home in this much pain. Patient was evaluated by urology noted to have a ureteral stone that is nonobstructing recommending outpatient follow-up. Patient is continued on antibiotics and will continue for now with concerns of urinary tract infection. Patient is afebrile with no reported chest pain or shortness of breath. Patient reports to some nausea but has been tolerating diet. Encouraged increase activity as tolerated and will await pain management consult 10/26/2024 Evaluated today sitting up in the bed she is continuing to report right sided mid back pain that is wrapping around to the front. It is quite tender to palpate and patient is crying out and states that she is unable to get comfortable. She is requesting IV Dilaudid every 3 hours states the Toradol did not help and is refusing [place]. She was evaluated by pain management who felt this could have been a costochondritis and recommending NSAID therapy patient states that it is not helping. Abdominal pelvis CT shows nonobstructing 4 to 5 mm nonobstructing right renal calcification. And there is additional punctuate calcification of the right kidney there is no left renal calcifications and there is no hydronephrosis. There is large stool burden. Small bibasilar infiltrates and tiny effusions on the right greater than the left. Remains on IV ceftriaxone for acute urinary tract infection. 10/27/2024 Patient evaluated today in the intensive care unit. Having some anxiety related to social issues. Xanax has been increased to 1 mg BID. Patient again requesting IV dilaudid but OK with increasing the norco to 7.5 mg Q6h and we will try that with the increase in xanax. She does state that the right sided back pain has improved down to a 7/10. Continues on IV ceftriaxone and the urine culture is currently pending. Maintained on 3% saline and sodium is up to 122. Nephrology following. REVIEW OF SYSTEMS: CONSTITUTIONAL: No fever, no malaise,. CARDIOVASCULAR: No chest pain, no palpitations, no syncope. PULMONARY: No shortness of breath, no cough GASTROINTESTINAL: As mentioned above NEUROLOGICAL: No headaches, no weakness, reports of severe back pain PHYSICAL EXAMINATION: GENERAL: The patient is alert and oriented x3. Well developed, well nourished. HEENT: Pupils are round and equally reacting to light. EOMI. No scleral icterus. No conjunctival pallor. Normocephalic, atraumatic. No pharyngeal erythema. No thyromegaly. CARDIOVASCULAR: S1 and S2 present. No murmurs, rubs, or gallops. PULMONARY: Chest is clear to auscultation, no wheezing or crackles. ABDOMEN: Soft, nontender, nondistended, normoactive bowel sounds. No palpable organomegaly. MUSCULOSKELETAL: No joint swelling or deformity. EXTREMITIES: No cyanosis, clubbing, or pedal edema. NEUROLOGICAL: Gross neurological examination did not reveal any focal deficits. SKIN: No rashes. Assessment: Abdominal pain, multifactorial possibly secondary to urinary tract infection as well as large stool burden noted on CT. 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 Nonobstructing right renal stone History of anxiety History of bipolar disorder History of chronic back pain GI prophylaxis DVT prophylaxis Full code Plan: Patient was seen and evaluated by urology reporting her pain is not secondary to this 5-10 mm nonobstructing stone. Recommends outpatient follow-up Pain management consulted as patient is on [id number] IV Dilaudid and reports her pain is continuously 10/10. Continue on norco and IV toradol and awaiting CT review by pain management. Recommend PT/OT therapy and increase activity as tolerated Recommend bowel regimen scheduled as well as as needed patient reports having a bowel movement yesterday. Xanax will be increased to 1 mg twice daily. Patient to be inpatient status due to the hyponatremia Nephrology consultation recommending to continue on the 3% saline gtt for now Patient remains in the intensive care unit and will continue with Q4h hour sodium checks. The impression and plan of care has been dictated by Dilcia Renteria, Nurse Practitioner as directed. Dr. Beth MD I have performed a history and examination and MDM of this patient, discussed the same with the dictator, and agree with the dictator's assessment and plan as written ,documented as a scribe. Based on total visit time, I have performed more than 50% of the visit. Objective - Vital Signs Vital signs: Vital Signs Temp 98.1 F 10/27/24 04:00 Pulse 57 L 10/27/24 07:00 Resp 12 10/27/24 07:00 BP 128/61 10/27/24 07:00 Pulse Ox 96 10/27/24 07:00 FiO2 Intake & Output 10/26/24 10/27/24 10/27/24 18:59 06:59 18:59 Intake Total 790 250 25 Output Total 400 405 15 Balance 390 -155 10 Weight 52.3 kg Intake: IV 250 25 Sodium Chloride 3%( 250 25 Hypertonic) 500 ml @ 25 mls/hr IV .Q20H ONE Rx#: [id number] Oral 790 Output: Urine 400 405 15 Other: Voiding Method Toilet Indwelling Catheter # Voids 1 # Bowel Movements 1 - Labs CBC & Chem 7: 10/27/24 03:57 10/27/24 15:31 Labs: Abnormal Lab Results - Last 24 Hours (Table) 10/26/24 10/26/24 10/26/24 Range/Units 08:50 12:53 13:02 RBC (3.80-5.40) m/uL Sodium 119 L* 118 L* 119 L* (137-145) mmol/L Chloride 87 L 87 L (98-107) mmol/L Creatinine 0.49 L 0.46 L (0.52-1.04) mg/dL Glucose 130 H 102 H (74-99) mg/dL POC Glucose (mg/dL) (70-110) mg/dL Osmolality 255 L (275-295) mOsm/kg TSH 0.443 L (0.465-4.680) mIU/L 10/26/24 10/26/24 10/26/24 Range/Units 18:07 19:45 20:23 RBC (3.80-5.40) m/uL Sodium 119 L* 120 L (137-145) mmol/L Chloride 85 L (98-107) mmol/L Creatinine 0.50 L (0.52-1.04) mg/dL Glucose 108 H (74-99) mg/dL POC Glucose (mg/dL) 173 H (70-110) mg/dL Osmolality (275-295) mOsm/kg TSH (0.465-4.680) mIU/L 10/26/24 10/27/24 10/27/24 Range/Units 23:09 03:57 03:57 RBC (3.80-5.40) m/uL Sodium 121 L 122 L 122 L (137-145) mmol/L Chloride 91 L (98-107) mmol/L Creatinine 0.50 L (0.52-1.04) mg/dL Glucose (74-99) mg/dL POC Glucose (mg/dL) (70-110) mg/dL Osmolality (275-295) mOsm/kg TSH (0.465-4.680) mIU/L 10/27/24 10/27/24 Range/Units 03:57 08:15 RBC 3.71 L (3.80-5.40) m/uL Sodium 122 L (137-145) mmol/L Chloride (98-107) mmol/L Creatinine (0.52-1.04) mg/dL Glucose (74-99) mg/dL POC Glucose (mg/dL) (70-110) mg/dL Osmolality (275-295) mOsm/kg TSH (0.465-4.680) mIU/L Assessment and Plan Time with Patient: Less than 30
[2024-10-27] MEDS: DEMECLOCYCLINE 150 MG TAB PO SCH (20:53)
[2024-10-27] MEDS: ALPRAZolam 1 MG TAB PO PRN (21:11)
[2024-10-28 05:24] LABS: African American GFR (CKD) >90 (>60 ml/min/1.73 sqM); Anion Gap 6 mmol/L; Blood Urea Nitrogen 14 mg/dL (7-17); Carbon Dioxide 24 mmol/L (22-30); Chloride 94 mmol/L (98-107); Glucose 82 mg/dL (74-99); Non-African American GFR(CKD) >90 (>60 ml/min/1.73 sqM); Potassium 4.5 mmol/L (3.5-5.1); Sodium 124 mmol/L (137-145)
[2024-10-28] MEDS: SODIUM CHLORIDE TAB 1 GM TAB PO SCH (08:01)
--- NOTE | 2024-10-28 13:06 | P.PN ---
Subjective Progress Note Date: 10/28/24 patient 64-year-old lady with past medical history significant for urinary retention who presented the ER because abdominal pain. Patient has been evaluated in the ER 3 times the last 10 days with similar complaints. Patient had a CT abdomen pelvis done showing nonobstructive renal stone. Patient was d ischarged on Zofran and pain medications. Patient stated that she has been having right-sided flank pain for the last 2 days, pain is intermittent, severe intensity and colicky in nature, denies any aggravating or relieving factor associated abdominal pain. There is no complaint of fever or chills. There is no current nausea, and vomiting. Patient has been noticing decreasing urine output and stated that she has not been urinating much. Because of the symptoms, she was evaluated in the ER a day ago and the resulting CT scan showed right-sided nonobstructing renal stone. Patient was discharged to follow-up outpatient with urologist but returned within 24 hours with similar complaints Initial lab work done in the ER showed WBC 10.6, hemoglobin 12.7, platelet count 353, sodium 134, potassium 4.8, BUN 20, creatinine 0.60, glucose 85, calcium 9.3, bilirubin 0.4, AST 27, ALT 22, UA positive for nitrite, urine WBC 2, CT abdomen pelvis done showed nonobstructing right 3 mm renal stone Patient admitted to internal medicine service 10/24. Patient seen and examined. Still complaining of abdominal pain. Denies any nausea vomit 10/25/2024 Patient is seen and evaluated in follow-up continuing to report severe 10/10 pain and per nursing staff patient has been requesting Dilaudid around -the-clock. Will consult pain management for further evaluation as patient reports she cannot return home in this much pain. Patient was evaluated by urology noted to have a ureteral stone that is nonobstructing recommending outpatient follow-up. Patient is continued on antibiotics and will continue for now with concerns of urinary tract infection. Patient is afebrile with no reported chest pain or shortness of breath. Patient reports to some nausea but has been tolerating diet. Encouraged increase activity as tolerated and will await pain management consult 10/26/2024 Evaluated today sitting up in the bed she is continuing to report right sided mid back pain that is wrapping around to the front. It is quite tender to palpate and patient is crying out and states that she is unable to get comfortable. She is requesting IV Dilaudid every 3 hours states the Toradol did not help and is refusing [place]. She was evaluated by pain management who felt this could have been a costochondritis and recommending NSAID therapy patient states that it is not helping. Abdominal pelvis CT shows nonobstructing 4 to 5 mm nonobstructing right renal calcification. And there is additional punctuate calcification of the right kidney there is no left renal calcifications and there is no hydronephrosis. There is large stool burden. Small bibasilar infiltrates and tiny effusions on the right greater than the left. Remains on IV ceftriaxone for acute urinary tract infection. 10/27/2024 Patient evaluated today in the intensive care unit. Having some anxiety related to social issues. Xanax has been increased to 1 mg BID. Patient again requesting IV dilaudid but OK with increasing the norco to 7.5 mg Q6h and we will try that with the increase in xanax. She does state that the right sided back pain has improved down to a 7/10. Continues on IV ceftriaxone and the urine culture is currently pending. Maintained on 3% saline and sodium is up to 122. Nephrology following. 10/28/2024 Was evaluated in follow-up in intensive care unit she is currently sedated in the chair attempting to have lunch. Patient does state that this morning her pain was better but currently now is rating it an 8 of 10 having a colicky right sided back/flank pain. She states that she has not passed a stone yet. Has an indwelling Abreu catheter. Is currently off of 3% saline drip and is continued on oral sodium chloride tablets twice daily sodium today is 124. REVIEW OF SYSTEMS: CONSTITUTIONAL: No fever, no malaise,. CARDIOVASCULAR: No chest pain, no palpitations, no syncope. PULMONARY: No shortness of breath, no cough GASTROINTESTINAL: As mentioned above NEUROLOGICAL: No headaches, no weakness, reports of severe back pain PHYSICAL EXAMINATION: GENERAL: The patient is alert and oriented x3. Well developed, well nourished. HEENT: Pupils are round and equally reacting to light. EOMI. No scleral icterus. No conjunctival pallor. Normocephalic, atraumatic. No pharyngeal erythema. No thyromegaly. CARDIOVASCULAR: S1 and S2 present. No murmurs, rubs, or gallops. PULMONARY: Chest is clear to auscultation, no wheezing or crackles. ABDOMEN: Soft, tender, nondistended, normoactive bowel sounds. No palpable organomegaly. MUSCULOSKELETAL: No joint swelling or deformity. EXTREMITIES: No cyanosis, clubbing, or pedal edema. NEUROLOGICAL: Gross neurological examination did not reveal any focal deficits. SKIN: No rashes. Assessment: Abdominal pain, multifactorial possibly secondary to urinary tract infection as well as large stool burden noted on CT. 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 Nonobstructing right renal stone History of anxiety History of bipolar disorder History of chronic back pain GI prophylaxis DVT prophylaxis Full code Plan: Patient was seen and evaluated by urology reporting her pain is not secondary to this 5-10 mm nonobstructing stone. Recommends outpatient follow-up As patient continues to report right sided pain we will repeat imaging today with a KUB Pain management consulted. Continue on norco and IV toradol and awaiting CT review by pain management. Recommend PT/OT therapy and increase activity as tolerated Recommend bowel regimen scheduled as well as as needed patient reports having a bowel movement yesterday. Xanax will be increased to 1 mg twice daily. Patient to be inpatient status due to the hyponatremia Nephrology consultation patient remains in the intensive care unit currently on oral sodium chloride tablets twice daily. 3% saline drip was discontinued Patient remains in the intensive care unit and will continue with Q4h hour sodium checks. The impression and plan of care has been dictated by Dilcia Renteria Nurse Practitioner as directed. Dr. Beth MD I have performed a history and examination and MDM of this patient, discussed the same with the dictator, and agree with the dictator's assessment and plan as written ,documented as a scribe. Based on total visit time, I have performed more than 50% of the visit. Objective - Vital Signs Vital signs: Vital Signs Temp 98.4 F 10/28/24 08:00 Pulse 62 10/28/24 09:00 Resp 8 L 10/28/24 09:00 BP 122/72 10/28/24 09:00 Pulse Ox 96 10/28/24 09:00 FiO2 Intake & Output 10/27/24 10/28/24 10/28/24 18:59 06:59 18:59 Intake Total 1165 Output Total 900 580 135 Balance 265 -580 -135 Weight 52.9 kg Intake: IV 325 Sodium Chloride 3%( 325 Hypertonic) 500 ml @ 25 mls/hr IV .Q20H ONE Rx#: [id number] Oral 840 Output: Urine 900 580 135 Other: Voiding Method Indwelling Catheter Indwelling Catheter Indwelling Catheter # Bowel Movements 1 - Labs CBC & Chem 7: 10/27/24 03:57 10/28/24 11:43 Labs: Abnormal Lab Results - Last 24 Hours (Table) 10/27/24 10/27/24 10/27/24 Range/Units 11:49 15:31 19:42 Sodium 124 L 125 L 126 L (137-145) mmol/L Chloride (98-107) mmol/L 10/27/24 10/28/24 Range/Units 23:47 04:35 Sodium 125 L 124 L (137-145) mmol/L Chloride 94 L (98-107) mmol/L Microbiology - Last 24 Hours (Table) 10/26/24 14:30 Urine Culture - Final Urine,Clean Catch Assessment and Plan Time with Patient: Less than 30
--- NOTE | 2024-10-28 14:05 | XR ---
EXAMINATION TYPE: XR KUB DATE OF EXAM: 10/28/2024 1:33 PM COMPARISON: CT CLINICAL INDICATION: Female, 64 years old with history of f/u renal stone continued flank pain right sided; [facility] TECHNIQUE: One radiographic view of the abdomen was obtained. FINDINGS: There is a moderate stool burden, otherwise, the bowel gas pattern is nonspecific without d ilated loops of small or large bowel. . Fecal material and gas are demonstrated throughout the colon and rectum. There is no evidence for organomegaly or pneumoperitoneum. No acute osseous process. Richie al calculus in the left abdomen in the mesentery on CT. Right renal calculus measuring up to 2 mm. IMPRESSION: Nonspecific bowel gas pattern without radiographic evidence for acute process. Right renal calculus. Left calcification in the the mesentery. [facility], , 10/28/2024 2:02 PM
--- NOTE | 2024-10-28 21:28 | P.PN ---
Subjective Patient is seen for follow-up for hyponatremia secondary to SIADH. Status post 3% saline which was discontinued yesterday. Serum sodium was 125 yesterday. This morning it was 122. Patient has been started on demeclocycline and sodium chloride tabs. Samsca is not available anymore. Objective - Vital Signs Vital signs: Vital Signs Temp 97.6 F 10/28/24 20:00 Pulse 62 10/28/24 21:00 Resp 14 10/28/24 21:00 BP 125/74 10/28/24 21:00 Pulse Ox 97 10/28/24 21:00 FiO2 Intake & Output 10/28/24 10/28/24 10/29/24 06:59 18:59 06:59 Intake Total 600 Output Total 580 735 170 Balance -580 -135 -170 Weight 52.9 kg Intake: Oral 600 Output: Urine 580 735 170 Other: Voiding Method Indwelling Catheter Indwelling Catheter Indwelling Catheter # Bowel Movements 1 - Exam Patient is awake, comfortable, no acute distress. Examination of the heart S1 and S2 Examination of the lungs shows bilateral breath sounds are heard Abdomen is soft nontender Examination of lower extremities shows no evidence of edema SECURITY SYSTEMS SPECIALIST exam grossly intact - Labs CBC & Chem 7: 10/27/24 03:57 10/28/24 17:50 Labs: Abnormal Lab Results - Last 24 Hours (Table) 10/27/24 10/28/24 10/28/24 Range/Units 23:47 04:35 11:43 Sodium 125 L 124 L 124 L (137-145) mmol/L Chloride 94 L (98-107) mmol/L 10/28/24 10/28/24 Range/Units 15:41 17:50 Sodium 121 L 122 L (137-145) mmol/L Chloride (98-107) mmol/L Microbiology - Last 24 Hours (Table) 10/26/24 14:30 Urine Culture - Final Urine,Clean Catch Assessment and Plan Assessment: 1. Hyponatremia, most likely related to SIADH with acute drop in serum sodium post normal saline bolus. Patient has also been maintained on NSAIDs which can contribute to hyponatremia. Urine osmolality was 518 and random urine sodium was 182. Status post 3% saline. Currently maintained on demeclocycline and sodium chloride tabs. 2. Abdominal/ back pain 3. Right renal calculus 4 to 5 mm, nonobstructive, not believed to be the cause of the pain at this time. Patient is being followed by urology. 4. History of anxiety Plan: Continue with demeclocycline and sodium chloride tabs. Samsca is not available anymore. Repeat sodium this evening.
[2024-10-28] MEDS: SODIUM CHLORIDE 3%(HYPERTONIC) 500 ML IV ONE (21:55)
[2024-10-28] MEDS: FUROSEMIDE 10 MG/ML 2 ML VIAL IV ONE (23:10)
--- NOTE | 2024-10-29 02:03 | P.CNPUL ---
History of Present Illness Consult date: 10/29/24 Requesting physician: Fern Villarreal Reason for consult: other (Hyponatremia) Chief complaint: Right flank pain History of present illness: Patient is a 64-year-old female with past medical history significant for anxiety, bipolar. Presents to the emergency department back on 10/22/2024 with a chief complaint of right flank pain and suprapubic pressure. Workup in the emergency department CT of the abdomen/pelvis demonstrates a 3 mm right upper pole renal stone, nonobstructive. No hydronephrosis. Mild fecal retention. Mildly prominent small bowel with possible mild enteritis/ileus. No bowel obstruction noted. Urinalysis positive for nitrates, trace leukocytes and bacteriuria. She was placed originally on IV Rocephin as empiric antibiotic coverage. Preliminary urine culture shows no growth at 18 hours. Patient developed hyponatremia, with a sodium as low as 119. Transferred to the intensive care unit back on 10/26/2024, and was placed on 3% hypertonic saline. Also receiving Declomycin and sodium tabs. NSAIDs on hold. Hyponatremia is being managed by nephrology. Patient appears euvolemic. Serum osmolality 255, urine osmolality 518, urine sodium 182. TSH 0.443 and free T4 at 0.96. Cortisol 12.3. Most recent available sodium is 122. Remainder of BMP includes a pota ssium 4.5, chloride 94, serum bicarb 24, BUN 14, creatinine 0.53, glucose 82. CBC is unremarkable, WBC count 4.9. Patient currently being evaluated in the ICU. Alert and oriented. She is resting comfortably on 2 L/min nasal cannula. SpO2 reading 96%. Chest x-ray done previously this admission showing no acute cardiopulmonary process. No focal consolidations. No obvious nodularities or masses. Right flank pain is improved. She has been seen by pain management. She does have a indwelling urinary catheter. Urometer is full with clear urine. Denies any dysuria, hematuria. Denies any fevers, chills, nausea or vomiting. No abnormal fluid intake. Currently on a 3% hypertonic saline infusion at 25 mL/h. Current vitals: Temperature 97.6 F, heart rate 64 bpm, blood pressure 192/58 mmHg, nontachypneic, SpO2 reading 96% on 2 L/min nasal cannula. Review of Systems Constitutional: Denies chills, Denies fatigue, Denies fever, Denies night sweats , Denies poor appetite, Denies weight gain, Denies weight loss Ears, nose, mouth and throat: Denies headache, Denies nasal congestion, Denies nasal discharge, Denies post-nasal drip, Denies sinus pain, Denies sinus pressure, Denies sore throat Cardiovascular: Denies chest pain, Denies leg edema, Denies orthopnea, Denies palpitations, Denies paroxysmal nocturnal dyspnea, Denies shortness of breath, Denies syncope Respiratory: Denies congestion, Denies cough, Denies dyspnea, Denies hemoptysis Gastrointestinal: Reports constipation, Denies abdominal pain, Denies diarrhea, Denies nausea, Denies vomiting Genitourinary: Reports as per HPI Musculoskeletal: Denies limitation of motion Integumentary: Denies rash Neurological: Denies confusion, Denies headaches, Denies memory loss, Denies numbness, Denies paralysis, Denies seizures, Denies syncope, Denies weakness Psychiatric: Reports anxiety, Reports depression, Denies suicidal ideation Past Medical History Past Medical History: Hyperlipidemia, Hypertension Additional Past Medical History / Comment(s): occ migraines, hemorrhoids, degenerative disks L4 and L5 History of Any Multi-Drug Resistant Organisms: None Reported Past Surgical History: Appendectomy, Section, Orthopedic Surgery Additional Past Surgical History / Comment(s): LEFT ARM (POST TRAUMATIC INJURY) reattached, RIGHT FOOT X3, LEFT KNEE ARTHROSCOPY, left oophorectomy, hemorroidectomy Past Anesthesia/Blood Transfusion Reactions: No Reported Reaction Past Psychological History: Anxiety, Bipolar, Depression, Panic Disorder Smoking Status: Former smoker Past Alcohol Use History: None Reported Additional Past Alcohol Use History / Comment(s): quit smoking 2015, smoked for 15 yrs, < 1 PPD Past Drug Use History: None Reported - Past Family History Mother Family Medical History: No Reported History Medications and Allergies Home Medications Medication Instructions Recorded Confirmed Type Zolpidem [Ambien] 10 mg PO HS 03/22/24 10/22/24 History tiZANidine [Zanaflex] 4 mg PO DAILY 03/22/24 10/22/24 History ALPRAZolam [Xanax] 1 mg PO HS 10/22/24 10/22/24 History Benztropine Mesylate [Cogentin] 1 mg PO BID PRN 10/22/24 10/22/24 History Cephalexin [Keflex] 500 mg PO Q12H 7 Days #14 cap 10/22/24 Rx Ketorolac [Toradol] 10 mg PO Q8HR #15 tab 10/22/24 Rx OXcarbazepine [Trileptal] 300 mg PO TID 10/22/24 10/22/24 History Oxybutynin ER [Ditropan XL] 10 mg PO DAILY 10/22/24 10/22/24 History QUEtiapine FUMARATE [SEROquel] 25 mg PO HS PRN 10/22/24 10/22/24 History Allergies Allergy/AdvReac Type Severity Reaction Status Date / Time Penicillins Allergy Unknown Rash/Hives/Itching Verified 10/22/24 21:05 all over body clonidine AdvReac "Black Out" Verified 10/22/24 21:05 Physical Exam Vitals: Vital Signs Temp Pulse Resp BP Pulse Ox 10/29/24 01:00 61 13 100/53 95 10/29/24 00:12 61 13 106/60 95 10/29/24 00:00 97.6 F 64 13 92/58 96 10/28/24 23:00 62 12 97/61 96 10/28/24 22:00 63 15 108/65 97 10/28/24 21:00 62 14 125/74 97 10/28/24 20:00 97.6 F 64 12 117/66 96 10/28/24 19:00 79 12 104/59 95 10/28/24 18:00 67 25 H 116/64 95 10/28/24 17:00 69 22 126/67 94 L 10/28/24 16:00 97.8 F 64 8 L 133/92 95 10/28/24 15:00 60 11 L 112/77 95 10/28/24 14:04 20 10/28/24 13:00 62 15 143/77 96 10/28/24 12:00 65 12 123/70 97 10/28/24 11:00 56 L 21 125/75 96 10/28/24 10:00 60 14 112/71 97 10/28/24 09:00 62 8 L 122/72 96 10/28/24 08:00 98.4 F 65 12 133/73 98 10/28/24 07:00 60 12 109/62 97 10/28/24 06:00 54 L 14 123/63 95 10/28/24 05:00 56 L 13 108/64 95 10/28/24 04:00 97.8 F 55 L 14 108/59 96 10/28/24 03:00 52 L 15 113/66 95 10/28/24 02:00 56 L 14 110/53 95 Intake and Output 10/28/24 10/28/24 10/29/24 14:59 22:59 06:59 Intake Total 240 385 75 Output Total 435 510 775 Balance -195 -125 -700 Intake: Intake, IV Titration 25 75 Amount Sodium Chloride 3%( 25 75 Hypertonic) 500 ml @ 25 mls/hr IV .Q20H ONE Rx#: [id number] Oral 240 360 Output: Urine 435 510 775 Other: Voiding Method Indwelling Catheter Indwelling Catheter Indwelling Catheter GENERAL EXAM: Alert, 64-year-old white female, comfortable in no apparent distress. HEAD: Normocephalic and atraumatic EYES: Normal reaction of pupils, equal size. NOSE: Clear with pink turbinates. THROAT: No erythema or exudates. NECK: No masses, no JVD. CHEST: No chest wall deformity. LUNGS: Equal air entry with no crackles, wheeze, rhonchi or dullness. On 2 L/min nasal cannula. SpO2 reading 98% on bedside monitor. No conversational dyspnea or accessory muscle use.. CVS: S1 and S2 normal with no audible murmur, regular rhythm. No extra heart sounds ABDOMEN: No hepatosplenomegaly, active bowel sounds, no guarding or rigidity. SPINE: No scoliosis or deformity SKIN: No rashes CENTRAL NERVOUS SYSTEM: No focal deficits, tone is normal in all 4 extremities. EXTREMITIES: There is no peripheral edema, clubbing, or cyanosis. Peripheral pulses are intact. Results - Laboratory Findings CBC and BMP: 10/27/24 03:57 10/28/24 17:50 Abnormal lab findings: Abnormal Labs 10/22/24 10/22/24 10/25/24 14:03 14:03 05:09 RBC 3.79 L Hgb 11.9 L Hct 36.1 L Sodium 135 L Chloride Carbon Dioxide 21 L BUN 20 H Creatinine Glucose POC Glucose (mg/dL) Osmolality Total Protein 5.9 L Albumin 3.4 L TSH Urine Nitrite Positive H Ur Leukocyte Esterase Trace H Urine Bacteria Many H Urine Mucus Occasional H 10/25/24 10/26/24 10/26/24 05:09 08:50 12:53 RBC Hgb Hct Sodium 129 L 119 L* 118 L* Chloride 92 L 87 L Carbon Dioxide BUN Creatinine 0.49 L Glucose 130 H POC Glucose (mg/dL) Osmolality Total Protein 5.6 L Albumin 3.2 L TSH Urine Nitrite Ur Leukocyte Esterase Urine Bacteria Urine Mucus 10/26/24 10/26/24 10/26/24 13:02 18:07 19:45 RBC Hgb Hct Sodium 119 L* 119 L* 120 L Chloride 87 L 85 L Carbon Dioxide BUN Creatinine 0.46 L 0.50 L Glucose 102 H 108 H POC Glucose (mg/dL) Osmolality 255 L Total Protein Albumin TSH 0.443 L Urine Nitrite Ur Leukocyte Esterase Urine Bacteria Urine Mucus 10/26/24 10/26/24 10/27/24 20:23 23:09 03:57 RBC Hgb Hct Sodium 121 L 122 L Chloride 91 L Carbon Dioxide BUN Creatinine 0.50 L Glucose POC Glucose (mg/dL) 173 H Osmolality Total Protein Albumin TSH Urine Nitrite Ur Leukocyte Esterase Urine Bacteria Urine Mucus 10/27/24 10/27/24 10/27/24 03:57 03:57 08:15 RBC 3.71 L Hgb Hct Sodium 122 L 122 L Chloride Carbon Dioxide BUN Creatinine Glucose POC Glucose (mg/dL) Osmolality Total Protein Albumin TSH Urine Nitrite Ur Leukocyte Esterase Urine Bacteria Urine Mucus 10/27/24 10/27/24 10/27/24 11:49 15:31 19:42 RBC Hgb Hct Sodium 124 L 125 L 126 L Chloride Carbon Dioxide BUN Creatinine Glucose POC Glucose (mg/dL) Osmolality Total Protein Albumin TSH Urine Nitrite Ur Leukocyte Esterase Urine Bacteria Urine Mucus 10/27/24 10/28/24 10/28/24 23:47 04:35 11:43 RBC Hgb Hct Sodium 125 L 124 L 124 L Chloride 94 L Carbon Dioxide BUN Creatinine Glucose POC Glucose (mg/dL) Osmolality Total Protein Albumin TSH Urine Nitrite Ur Leukocyte Esterase Urine Bacteria Urine Mucus 10/28/24 10/28/24 15:41 17:50 RBC Hgb Hct Sodium 121 L 122 L Chloride Carbon Dioxide BUN Creatinine Glucose POC Glucose (mg/dL) Osmolality Total Protein Albumin TSH Urine Nitrite Ur Leukocyte Esterase Urine Bacteria Urine Mucus - Diagnostic Findings Chest x-ray: image reviewed Assessment and Plan Assessment: Hyponatremia, suspect SIADH, currently on a 3% hypertonic saline infusion Nephrolithiasis, with a 4-5 mm right upper pole nonobstructive renal calcification Right flank pain, patient has been evaluated by pain management Constipation, with large stool burden and no evidence of bowel obstruction per CT of the abdomen/pelvis History of anxiety/bipolar Plan: Patient's medications, labs, imaging reviewed Hyponatremia being managed by nephrology Currently on a 3% hypertonic saline infusion at 25 mL/h Also, receiving sodium chloride tabs 1 g twice daily and Declomycin Currently on a 1.2 L fluid restriction Will monitor sodium and neurochecks per protocol Chest x-ray done previously does not show any focal infiltrates or evidence of pneumonia, no nodularities or masses, possible trace bilateral pleural effusions NSAIDs currently on hold. Pain management was consulted. Continue to follow the patient while in the intensive care unit I have personally seen and examined the patient, performed the documentation and the assessment and plan as written. Number of minutes spent on the visit:20 Time with Patient: Greater than 30
[2024-10-29 02:46] LABS: African American GFR (CKD) >90 (>60 ml/min/1.73 sqM); Anion Gap 6 mmol/L; Blood Urea Nitrogen 22 mg/dL (7-17); Carbon Dioxide 28 mmol/L (22-30); Chloride 87 mmol/L (98-107); Glucose 84 mg/dL (74-99); Non-African American GFR(CKD) >90 (>60 ml/min/1.73 sqM); Potassium 4.5 mmol/L (3.5-5.1); Sodium 121 mmol/L (137-145)
[2024-10-29] MEDS: SODIUM CHLORIDE 3%(HYPERTONIC) 500 ML IV ONE (08:11)
--- NOTE | 2024-10-29 12:33 | P.PN ---
Subjective Patient is seen for follow-up for hyponatremia secondary to SIADH. Status post 3% saline which was discontinued 2 days ago. It was restarted this morning as serum sodium dropped to 121. Currently also maintained on demeclocycline and sodium chloride tabs. Samsca is not available anymore. No significant complaints Objective - Vital Signs Vital signs: Vital Signs Temp 98.3 F 10/29/24 08:00 Pulse 68 10/29/24 10:00 Resp 24 10/29/24 10:00 BP 133/74 10/29/24 10:00 Pulse Ox 99 10/29/24 10:00 FiO2 Intake & Output 10/28/24 10/29/24 10/29/24 18:59 06:59 18:59 Intake Total 600 250 326 Output Total 735 1760 200 Balance -135 -1510 126 Weight 52.5 kg Intake: Intake, IV Titration 250 90 Amount Sodium Chloride 3%( 250 Hypertonic) 500 ml @ 25 mls/hr IV .Q20H ONE Rx#: [id number] Sodium Chloride 3%( 90 Hypertonic) 500 ml @ 30 mls/hr IV .[id number] ONE Rx #:[id number] Oral 600 236 Output: Urine 735 1760 200 Other: Voiding Method Indwelling Catheter Indwelling Catheter - Exam Patient is awake, comfortable, no acute distress. Examination of the heart S1 and S2 Examination of the lungs shows bilateral breath sounds are heard Abdomen is soft nontender Examination of lower extremities shows no evidence of edema SONAR TECHNICIAN exam grossly intact - Labs CBC & Chem 7: 10/27/24 03:57 10/29/24 10:08 Labs: Abnormal Lab Results - Last 24 Hours (Table) 10/28/24 10/28/24 10/29/24 Range/Units 15:41 17:50 01:49 Sodium 121 L 122 L 121 L (137-145) mmol/L Chloride (98-107) mmol/L BUN (7-17) mg/dL 10/29/24 10/29/24 Range/Units 02:00 10:08 Sodium 121 L 122 L (137-145) mmol/L Chloride 87 L (98-107) mmol/L BUN 22 H (7-17) mg/dL Assessment and Plan Assessment: 1. Hyponatremia, most likely related to SIADH with acute drop in serum sodium post normal saline bolus. Patient has also been maintained on NSAIDs which can contribute to hyponatremia. Urine osmolality was 518 and random urine sodium was 182. Status post 3% saline. Restarted this morning, also maintained on demeclocycline and sodium chloride tabs. Tolvaptan is not available anymore 2. Abdominal/ back pain 3. Right renal calculus 4 to 5 mm, nonobstructive, not believed to be the cause of the pain at this time. Patient is being followed by urology. No plans for intervention as pain is thought to be unrelated to the stone 4. History of anxiety Plan: Restart 3% saline. Repeat sodium in 4 hours Continue with demeclocycline and sodium chloride tabs.
[2024-10-29 12:34] VITALS: BMI 21.9
--- NOTE | 2024-10-29 13:31 | P.CNPUL ---
History of Present Illness Consult date: 10/29/24 Chief complaint: Hyponatremia History of present illness: Patient is a 64-year-old female with past medical history significant for anxiety, bipolar. Presents to the emergency department back on 10/22/2024 with a chief complaint of right flank pain and suprapubic pressure. Workup in the emergency department CT of the abdomen/pelvis demonstrates a 3 mm right upper pole renal stone, nonobstructive. No hydronephrosis. Mild fecal retention. Mildly prominent small bowel with possible mild enteritis/ileus. No bowel obstruction noted. Urinalysis positive for nitrates, trace leukocytes and bacteriuria. She was placed originally on IV Rocephin as empiric antibiotic coverage. Preliminary urine culture shows no growth at 18 hours. Patient developed hyponatremia, with a sodium as low as 119. Transferred to the intensive care unit back on 10/26/2024, and was placed on 3% hypertonic saline. Also receiving Declomycin and sodium tabs. NSAIDs on hold. Hyponatremia is being managed by nephrology. Patient appears euvolemic. Serum osmolality 255, urine osmolality 518, urine sodium 182. TSH 0.443 and free T4 at 0.96. Cortisol 12.3. Most recent available sodium is 122. Remainder of BMP includes a potassium 4.5, chloride 94, serum bicarb 24, BUN 14, creatinine 0.53, glucose 82. CBC is unremarkable, WBC count 4.9. Patient currently being evaluated in the ICU. Alert and oriented. She is resting comfortably on 2 L/min nasal cannula. SpO2 reading 96%. Chest x-ray done previously this admission showing no acute cardiopulmonary process. No focal consolidations. No obvious nodularities or masses. Right flank pain is improved. She has been seen by pain management. She does have a indwelling urinary catheter. Urometer is full with clear urine. Denies any dysuria, hematuria. Denies any fevers, chills, nausea or vomiting. No abnormal fluid intake. Currently on a 3% hypertonic saline infusion at 25 mL/h. Current vitals: Temperature 97.6 F, heart rate 64 bpm, blood pressure 192/58 mmHg, nontachypneic, SpO2 reading 96% on 2 L/min nasal cannula. I saw the patient in the intensive care unit. At the time of my evaluation, the patient was still on hypertonic saline and 3% and the most recent sodium level is at 122. The patient was on room air oxygen with a pulse ox of 99%. No focal neurological deficits. No headache. She was complaining of pain in her right posterior chest area which had some skeletal features as the patient was having increased pain with movement and palpation. The blood work was reviewed. The workup that has been done is consistent with SIADH. Patient is on hypertonic saline and fluid restriction is being implemented. Meanwhile, I also reviewed the CAT scan of the abdomen and pelvis. The patient has a nonobstructing 4 mm calculus in the right kidney and there is no evidence of any hydronephrosis. There is a large stool burden within the colon without evidence of any bowel obstruction. There is also some atelectatic changes in the lung bases right more than left. No sputum production. No hypoxemia and the patient's pulse ox 99% on on room air oxygen. No suspicion for pulmonary embolism. Procalcitonin level is at 0.02. Review of Systems Constitutional: Denies chills, Denies fatigue, Denies fever, Denies night sweats, Denies poor appetite, Denies weight gain, Denies weight loss Ears, nose, mouth and throat: Denies headache, Denies nasal congestion, Denies nasal discharge, Denies post-nasal drip, Denies sinus pain, Denies sinus pressure, Denies sore throat Cardiovascular: Denies chest pain, Denies leg edema, Denies orthopnea, Denies p alpitations, Denies paroxysmal nocturnal dyspnea, Denies shortness of breath, Denies syncope Respiratory: Denies congestion, Denies cough, Denies dyspnea, Denies hemoptysis Gastrointestinal: Reports constipation, Denies abdominal pain, Denies diarrhea, Denies nausea, Denies vomiting Genitourinary: Reports as per HPI Musculoskeletal: Denies limitation of motion Integumentary: Denies rash Neurological: Denies confusion, Denies headaches, Denies memory loss, Denies numbness, Denies paralysis, Denies seizures, Denies syncope, Denies weakness Psychiatric: Reports anxiety, Reports depression, Denies suicidal ideation Past Medical History Past Medical History: Hyperlipidemia, Hypertension Additional Past Medical History / Comment(s): occ migraines, hemorrhoids, degenerative disks L4 and L5 History of Any Multi-Drug Resistant Organisms: None Reported Past Surgical History: Appendectomy, Section, Orthopedic Surgery Additional Past Surgical History / Comment(s): LEFT ARM (POST TRAUMATIC INJURY) reattached, RIGHT FOOT X3, LEFT KNEE ARTHROSCOPY, left oophorectomy, hemorr oidectomy Past Anesthesia/Blood Transfusion Reactions: No Reported Reaction Past Psychological History: Anxiety, Bipolar, Depression, Panic Disorder Smoking Status: Former smoker Past Alcohol Use History: None Reported Additional Past Alcohol Use History / Comment(s): quit smoking 2015, smoked for 15 yrs, < 1 PPD Past Drug Use History: None Reported - Past Family History Mother Family Medical History: No Reported History Medications and Allergies Home Medications Medication Instructions Recorded Confirmed Type Zolpidem [Ambien] 10 mg PO HS 03/22/24 10/22/24 History tiZANidine [Zanaflex] 4 mg PO DAILY 03/22/24 10/22/24 History ALPRAZolam [Xanax] 1 mg PO HS 10/22/24 10/22/24 History Benztropine Mesylate [Cogentin] 1 mg PO BID PRN 10/22/24 10/22/24 History Cephalexin [Keflex] 500 mg PO Q12H 7 Days #14 cap 10/22/24 Rx Ketorolac [Toradol] 10 mg PO Q8HR #15 tab 10/22/24 Rx OXcarbazepine [Trileptal] 300 mg PO TID 10/22/24 10/22/24 History Oxybutynin ER [Ditropan XL] 10 mg PO DAILY 10/22/24 10/22/24 History QUEtiapine FUMARATE [SEROquel] 25 mg PO HS PRN 10/22/24 10/22/24 History Allergies Allergy/AdvReac Type Severity Reaction Status Date / Time Penicillins Allergy Unknown Rash/Hives/Itching Verified 10/22/24 21:05 all over body clonidine AdvReac "Black Out" Verified 10/22/24 21:05 Physical Exam Vitals: Vital Signs Temp Pulse Resp BP Pulse Ox 10/29/24 10:00 68 24 133/74 99 10/29/24 09:00 79 15 115/61 99 10/29/24 08:00 98.3 F 67 16 117/62 97 10/29/24 07:00 53 L 13 107/63 96 10/29/24 06:00 56 L 13 112/65 96 10/29/24 05:00 60 14 103/63 95 02/17/25 04:00 58 L 12 90/58 95 10/29/24 03:00 56 L 19 102/63 96 10/29/24 02:00 57 L 12 87/61 95 10/29/24 01:00 61 13 100/53 95 10/29/24 00:12 61 13 106/60 95 10/29/24 00:00 97.6 F 64 13 92/58 96 10/28/24 23:00 62 12 97/61 96 10/28/24 22:00 63 15 108/65 97 10/28/24 21:00 62 14 125/74 97 10/28/24 20:00 97.6 F 64 12 117/66 96 10/28/24 19:00 79 12 104/59 95 10/28/24 18:00 67 25 H 116/64 95 10/28/24 17:00 69 22 126/67 94 L 10/28/24 16:00 97.8 F 64 8 L 133/92 95 10/28/24 15:00 60 11 L 112/77 95 10/28/24 14:04 20 Intake and Output 10/28/24 10/29/24 10/29/24 22:59 06:59 14:59 Intake Total 385 225 326 Output Total 510 1550 200 Balance -125 -1325 126 Intake: Intake, IV Titration 25 225 90 Amount Sodium Chloride 3%( 25 225 Hypertonic) 500 ml @ 25 mls/hr IV .Q20H ONE Rx#: [id number] Sodium Chloride 3%( 90 Hypertonic) 500 ml @ 30 mls/hr IV .[id number] ONE Rx #:[id number] Oral 360 236 Output: Urine 510 1550 200 Other: Voiding Method Indwelling Catheter Indwelling Catheter Weight 52.5 kg 52.5 kg GENERAL EXAM: Alert, 64-year-old white female, comfortable in no apparent distress. HEAD: Normocephalic and atraumatic EYES: Normal reaction of pupils, equal size. NOSE: Clear with pink turbinates. THROAT: No erythema or exudates. NECK: No masses, no JVD. CHEST: No chest wall deformity. LUNGS: Equal air entry with no crackles, wheeze, rhonchi or dullness. On 2 L/min nasal cannula. SpO2 reading 98% on bedside monitor. No conversational dyspnea or accessory muscle use.. CVS: S1 and S2 normal with no audible murmur, regular rhythm. No extra heart sounds ABDOMEN: No hepatosplenomegaly, active bowel sounds, no guarding or rigidity. SPINE: No scoliosis or deformity SKIN: No rashes CENTRAL NERVOUS SYSTEM: No focal deficits, tone is normal in all 4 extremities. EXTREMITIES: There is no peripheral edema, clubbing, or cyanosis. Peripheral pulses are intact. Results - Laboratory Findings CBC and BMP: 10/27/24 03:57 10/29/24 10:08 Abnormal lab findings: Abnormal Labs 10/22/24 10/22/24 10/25/24 14:03 14:03 05:09 RBC 3.79 L Hgb 11.9 L Hct 36.1 L Sodium 135 L Chloride Carbon Dioxide 21 L BUN 20 H Creatinine Glucose POC Glucose (mg/dL) Osmolality Total Protein 5.9 L Albumin 3.4 L TSH Urine Nitrite Positive H Ur Leukocyte Esterase Trace H Urine Bacteria Many H Urine Mucus Occasional H 10/25/24 10/26/24 10/26/24 05:09 08:50 12:53 RBC Hgb Hct Sodium 129 L 119 L* 118 L* Chloride 92 L 87 L Carbon Dioxide BUN Creatinine 0.49 L Glucose 130 H POC Glucose (mg/dL) Osmolality Total Protein 5.6 L Albumin 3.2 L TSH Urine Nitrite Ur Leukocyte Esterase Urine Bacteria Urine Mucus 10/26/24 10/26/24 10/26/24 13:02 18:07 19:45 RBC Hgb Hct Sodium 119 L* 119 L* 120 L Chloride 87 L 85 L Carbon Dioxide BUN Creatinine 0.46 L 0.50 L Glucose 102 H 108 H POC Glucose (mg/dL) Osmolality 255 L Total Protein Albumin TSH 0.443 L Urine Nitrite Ur Leukocyte Esterase Urine Bacteria Urine Mucus 10/26/24 10/26/24 10/27/24 20:23 23:09 03:57 RBC Hgb Hct Sodium 121 L 122 L Chloride 91 L Carbon Dioxide BUN Creatinine 0.50 L Glucose POC Glucose (mg/dL) 173 H Osmolality Total Protein Albumin TSH Urine Nitrite Ur Leukocyte Esterase Urine Bacteria Urine Mucus 10/27/24 10/27/24 10/27/24 03:57 03:57 08:15 RBC 3.71 L Hgb Hct Sodium 122 L 122 L Chloride Carbon Dioxide BUN Creatinine Glucose POC Glucose (mg/dL) Osmolality Total Protein Albumin TSH Urine Nitrite Ur Leukocyte Esterase Urine Bacteria Urine Mucus 10/27/24 10/27/24 10/27/24 11:49 15:31 19:42 RBC Hgb Hct Sodium 124 L 125 L 126 L Chloride Carbon Dioxide BUN Creatinine Glucose POC Glucose (mg/dL) Osmolality Total Protein Albumin TSH Urine Nitrite Ur Leukocyte Esterase Urine Bacteria Urine Mucus 10/27/24 10/28/24 10/28/24 23:47 04:35 11:43 RBC Hgb Hct Sodium 125 L 124 L 124 L Chloride 94 L Carbon Dioxide BUN Creatinine Glucose POC Glucose (mg/dL) Osmolality Total Protein Albumin TSH Urine Nitrite Ur Leukocyte Esterase Urine Bacteria Urine Mucus 10/28/24 10/28/24 10/29/24 15:41 17:50 01:49 RBC Hgb Hct Sodium 121 L 122 L 121 L Chloride Carbon Dioxide BUN Creatinine Glucose POC Glucose (mg/dL) Osmolality Total Protein Albumin TSH Urine Nitrite Ur Leukocyte Esterase Urine Bacteria Urine Mucus 10/29/24 10/29/24 02:00 10:08 RBC Hgb Hct Sodium 121 L 122 L Chloride 87 L Carbon Dioxide BUN 22 H Creatinine Glucose POC Glucose (mg/dL) Osmolality Total Protein Albumin TSH Urine Nitrite Ur Leukocyte Esterase Urine Bacteria Urine Mucus Assessment and Plan Plan: Hyponatremia, suspect SIADH, currently on a 3% hypertonic saline infusion. The patient is hyponatremic needs to be further investigated. No clear underlying malignancy. This could be related to medication. Nephrology on the case. Sodium level is currently is at 122. Fluid restriction. Hypertonic saline. Monitor sodium level Right posterior chest wall pain/flank pain, likely skeletal in nature. Nephrolithiasis, with a 4-5 mm right upper pole nonobstructive renal calcification Constipation, with large stool burden and no evidence of bowel obstruction per CT of the abdomen/pelvis History of anxiety/bipolar Plan: Keep the patient intensive care unit. Fluid restriction Look for any other source of malignancy. A CAT scan of the chest may be needed at a later stage specially if the pain in her right posterior chest continues. Hyponatremia being managed by nephrology Currently on a 3% hypertonic saline infusion at 25 mL/h Also, receiving sodium chloride tabs 1 g twice daily and Declomycin Currently on a 1.2 L fluid restriction Will monitor sodium and neurochecks per protocol Chest x-ray done previously does not show any focal infiltrates or evidence of pneumonia, no nodularities or masses, possible trace bilateral pleural effusions NSAIDs currently on hold. Pain management was consulted. Continue to follow the patient while in the intensive care unit
--- NOTE | 2024-10-29 18:12 | P.PN ---
Subjective Progress Note Date: 10/29/24 patient 64-year-old lady with past medical history significant for urinary retention who presented the ER because abdominal pain. Patient has been evaluated in the ER 3 times the last 10 days with similar complaints. Patient had a CT abdomen pelvis done showing nonobstructive renal stone. Patient was d ischarged on Zofran and pain medications. Patient stated that she has been having right-sided flank pain for the last 2 days, pain is intermittent, severe intensity and colicky in nature, denies any aggravating or relieving factor associated abdominal pain. There is no complaint of fever or chills. There is no current nausea, and vomiting. Patient has been noticing decreasing urine output and stated that she has not been urinating much. Because of the symptoms, she was evaluated in the ER a day ago and the resulting CT scan showed right-sided nonobstructing renal stone. Patient was discharged to follow-up outpatient with urologist but returned within 24 hours with similar complaints Initial lab work done in the ER showed WBC 10.6, hemoglobin 12.7, platelet count 353, sodium 134, potassium 4.8, BUN 20, creatinine 0.60, glucose 85, calcium 9.3, bilirubin 0.4, AST 27, ALT 22, UA positive for nitrite, urine WBC 2, CT abdomen pelvis done showed nonobstructing right 3 mm renal stone Patient admitted to internal medicine service 10/24. Patient seen and examined. Still complaining of abdominal pain. Denies any nausea vomit 10/25/2024 Patient is seen and evaluated in follow-up continuing to report severe 10/10 pain and per nursing staff patient has been requesting Dilaudid around -the-clock. Will consult pain management for further evaluation as patient reports she cannot return home in this much pain. Patient was evaluated by urology noted to have a ureteral stone that is nonobstructing recommending outpatient follow-up. Patient is continued on antibiotics and will continue for now with concerns of urinary tract infection. Patient is afebrile with no reported chest pain or shortness of breath. Patient reports to some nausea but has been tolerating diet. Encouraged increase activity as tolerated and will await pain management consult 10/26/2024 Evaluated today sitting up in the bed she is continuing to report right sided mid back pain that is wrapping around to the front. It is quite tender to palpate and patient is crying out and states that she is unable to get comfortable. She is requesting IV Dilaudid every 3 hours states the Toradol did not help and is refusing [place]. She was evaluated by pain management who felt this could have been a costochondritis and recommending NSAID therapy patient states that it is not helping. Abdominal pelvis CT shows nonobstructing 4 to 5 mm nonobstructing right renal calcification. And there is additional punctuate calcification of the right kidney there is no left renal calcifications and there is no hydronephrosis. There is large stool burden. Small bibasilar infiltrates and tiny effusions on the right greater than the left. Remains on IV ceftriaxone for acute urinary tract infection. 10/27/2024 Patient evaluated today in the intensive care unit. Having some anxiety related to social issues. Xanax has been increased to 1 mg BID. Patient again requesting IV dilaudid but OK with increasing the norco to 7.5 mg Q6h and we will try that with the increase in xanax. She does state that the right sided back pain has improved down to a 7/10. Continues on IV ceftriaxone and the urine culture is currently pending. Maintained on 3% saline and sodium is up to 122. Nephrology following. 10/28/2024 Was evaluated in follow-up in intensive care unit she is currently sedated in the chair attempting to have lunch. Patient does state that this morning her pain was better but currently now is rating it an 8 of 10 having a colicky right sided back/flank pain. She states that she has not passed a stone yet. Has an indwelling Coll[place] catheter. Is currently off of 3% saline drip and is continued on oral sodium chloride tablets twice daily sodium today is 124. 10/29/2024 Patient is evaluated today in follow up in the intensive care unit. Continues to report significant right sided flank pain. No epigastric pain. She has been continued on oral norco. IV toradol was discontinued due to the hyponatremia. Continues on 3% hypertonic solution running at 30 mls/hr. Additionally has been started on Declomycin and received a dose of IV lasix. Continues on sodium chloride tablet twice daily. Nephrology following closely. Indwelling collado catheter in place and patient has adequate urine output. Clear yellow. She is not having any shortness of breath. KUB xray reveals 2 mm right renal stone. Pain management had evaluated the patient recommended norco. REVIEW OF SYSTEMS: CONSTITUTIONAL: No fever, no malaise,. CARDIOVASCULAR: No chest pain, no palpitations, no syncope. PULMONARY: No shortness of breath, no cough GASTROINTESTINAL: As mentioned above NEUROLOGICAL: No headaches, no weakness, reports of severe back pain/Flank pain PHYSICAL EXAMINATION: GENERAL: The patient is alert and oriented x3. Well developed, well nourished. HEENT: Pupils are round and equally reacting to light. EOMI. No scleral icterus. No conjunctival pallor. Normocephalic, atraumatic. No pharyngeal erythema. No thyromegaly. CARDIOVASCULAR: S1 and S2 present. No murmurs, rubs, or gallops. PULMONARY: Chest is clear to auscultation, no wheezing or crackles. ABDOMEN: Soft, tenderness to the right flank, nondistended, normoactive bowel sounds. No palpable organomegaly. MUSCULOSKELETAL: No joint swelling or deformity. EXTREMITIES: No cyanosis, clubbing, or pedal edema. NEUROLOGICAL: Gross neurological examination did not reveal any focal deficits. SKIN: No rashes. Assessment: Abdominal pain, multifactorial possibly secondary to urinary tract infection as well as large stool burden noted on CT. 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 Nonobstructing right renal stone patient continues to report right sided flank pain History of anxiety History of bipolar disorder History of chronic back pain GI prophylaxis DVT prophylaxis Full code Plan: Patient was seen and evaluated by urology reporting her pain is not secondary to this 5-10 mm nonobstructing stone. Recommends outpatient follow-up As patient continues to report right sided pain had KUB xray in follow which now reveals a 2mm right renal stone. Pain management consulted. Continue on norco and IV toradol and awaiting CT review by pain management. Recommend PT/OT therapy and increase activity as tolerated Recommend bowel regimen scheduled as well as as needed patient reports having a bowel movement yesterday. Xanax will be increased to 1 mg twice daily. Patient to be inpatient status due to the hyponatremia Nephrology consultation patient remains in the intensive care unit currently on oral sodium chloride tablets twice daily. 3% saline drip currently running at 30 mls/hr. Started on declomycin. Patient remains in the intensive care unit and will continue with Q4h hour sodium checks. Repeat BMP in the AM. The impression and plan of care has been dictated by Dilcia Renteria Nurse Practitioner as directed. Dr. Beth MD I have performed a history and examination and MDM of this patient, discussed the same with the dictator, and agree with the dictator's assessment and plan as written ,documented as a scribe. Based on total visit time, I have performed more than 50% of the visit. Objective - Vital Signs Vital signs: Vital Signs Temp 98.6 F 10/29/24 16:00 Pulse 79 10/29/24 17:00 Resp 10 L 10/29/24 17:00 BP 107/60 10/29/24 17:00 Pulse Ox 95 10/29/24 17:00 FiO2 Intake & Output 10/28/24 10/29/24 10/29/24 18:59 06:59 18:59 Intake Total 600 250 742 Output Total 735 1760 750 Balance -135 -1510 -8 Weight 52.5 kg 52.5 kg Intake: Intake, IV Titration 250 270 Amount Sodium Chloride 3%( 250 Hypertonic) 500 ml @ 25 mls/hr IV .Q20H ONE Rx#: [id number] Sodium Chloride 3%( 270 Hypertonic) 500 ml @ 30 mls/hr IV .[id number] ONE Rx #:[id number] Oral 600 472 Output: Urine 735 1760 750 Other: Voiding Method Indwelling Catheter Indwelling Catheter Indwelling Catheter - Labs CBC & Chem 7: 10/27/24 03:57 10/29/24 14:06 Labs: Abnormal Lab Results - Last 24 Hours (Table) 10/28/24 10/29/24 10/29/24 Range/Units 17:50 01:49 02:00 Sodium 122 L 121 L 121 L (137-145) mmol/L Chloride 87 L (98-107) mmol/L BUN 22 H (7-17) mg/dL 10/29/24 10/29/24 Range/Units 10:08 14:06 Sodium 122 L 124 L (137-145) mmol/L Chloride (98-107) mmol/L BUN (7-17) mg/dL Assessment and Plan Time with Patient: Less than 30
[2024-10-30 05:38] LABS: Glucose,Whole Blood 93 mg/dL (70-110)
[2024-10-30 06:41] LABS: African American GFR (CKD) >90 (>60 ml/min/1.73 sqM); Anion Gap 4 mmol/L; Blood Urea Nitrogen 19 mg/dL (7-17); Calcium 9.1 mg/dL (8.4-10.2); Carbon Dioxide 24 mmol/L (22-30); Chloride 98 mmol/L (98-107); Glucose 86 mg/dL (74-99); Non-African American GFR(CKD) >90 (>60 ml/min/1.73 sqM); Potassium 4.6 mmol/L (3.5-5.1); Sodium 126 mmol/L (137-145)
[2024-10-30] MEDS: SODIUM CHLORIDE 3%(HYPERTONIC) 500 ML IV SCH (08:44)
[2024-10-30] MEDS ORDERED: FUROSEMIDE 10 MG/ML 4 ML VIAL IV STA (10:02)
[2024-10-30] MEDS: FUROSEMIDE 10 MG/ML 2 ML VIAL IV STA (11:24)
--- NOTE | 2024-10-30 11:24 | P.PN ---
Subjective Patient is seen for follow-up for hyponatremia secondary to SIADH. Maintained on 3% saline. Sodium up to 129 today. Patient is also maintained on sodium chloride tabs and demeclocycline. No significant complaints. Regarding etiology of SIADH, it could be related to Trileptal however patient had been on it prior to admission. Serum sodium was not significantly low on admission. Awaiting new medications she received was NSAIDs. This can also be associated with hyponatremia. Objective - Vital Signs Vital signs: Vital Signs Temp 97.8 F 10/30/24 08:00 Pulse 64 10/30/24 11:00 Resp 10 L 10/30/24 11:00 BP 120/74 10/30/24 11:00 Pulse Ox 97 10/30/24 11:00 FiO2 Intake & Output 10/29/24 10/30/24 10/30/24 18:59 06:59 18:59 Intake Total 1042 560 238 Output Total 950 895 750 Balance 92 335 -512 Weight 52.5 kg 58 kg Intake: Intake, IV Titration 330 360 120 Amount Sodium Chloride 3%( 330 360 120 Hypertonic) 500 ml @ 30 mls/hr IV .[id number] ONE Rx #:[id number] Oral 712 200 118 Output: Urine 950 895 750 Other: Voiding Method Indwelling Catheter Indwelling Catheter - Exam Patient is awake, comfortable, no acute distress. Examination of the heart S1 and S2 Examination of the lungs shows bilateral breath sounds are heard Abdomen is soft nontender Examination of lower extremities shows no evidence of edema JOY LOADER exam grossly intact - Labs CBC & Chem 7: 10/27/24 03:57 10/30/24 10:06 Labs: Abnormal Lab Results - Last 24 Hours (Table) 10/29/24 10/29/24 10/29/24 Range/Units 14:06 17:54 22:16 Sodium 124 L 126 L 126 L (137-145) mmol/L BUN (7-17) mg/dL Creatinine (0.52-1.04) mg/dL 10/30/24 10/30/24 10/30/24 Range/Units 01:54 05:32 10:06 Sodium 126 L 126 L 129 L (137-145) mmol/L BUN 19 H (7-17) mg/dL Creatinine 0.50 L (0.52-1.04) mg/dL Assessment and Plan Assessment: 1. Hyponatremia, most likely related to SIADH with acute drop in serum sodium post normal saline bolus. Patient has also been maintained on NSAIDs which can contribute to hyponatremia. She has been on Trileptal for some time now and serum sodium was not significantly low on initial admission but dropped subsequently about 2 days later with use of NSAIDs and IV fluids. Urine osmo lality was 518 and random urine sodium was 182. Maintained on 3% saline, demeclocycline and sodium chloride tabs 2. Abdominal/ back pain 3. Right renal calculus 4 to 5 mm, nonobstructive, not believed to be the cause of the pain at this time. Patient is being followed by urology. No plans for i ntervention as pain is thought to be unrelated to the stone 4. History of anxiety Plan: DC 3% saline as serum sodium is 129 Repeat sodium in about 5 hours, continue with fluid restriction Continue with demeclocycline and sodium chloride tabs. Avoid NSAIDs Consider discontinuation of Trileptal if serum sodium drops again
--- NOTE | 2024-10-30 13:17 | P.PN ---
Subjective Progress Note Date: 10/30/24 Patient is a 64-year-old female with past medical history significant for anxiety, bipolar. Presents to the emergency department back on 10/22/2024 with a chief complaint of right flank pain and suprapubic pressure. Workup in the emergency department CT of the abdomen/pelvis demonstrates a 3 mm right upper pole renal stone, nonobstructive. No hydronephrosis. Mild fecal retention. Mildly prominent small bowel with possible mild enteritis/ileus. No bowel obstruction noted. Urinalysis positive for nitrates, trace leukocytes and bacteriuria. She was placed originally on IV Rocephin as empiric antibiotic coverage. Preliminary urine culture shows no growth at 18 hours. Patient developed hyponatremia, with a sodium as low as 119. Transferred to the intensive care unit back on 10/26/2024, and was placed on 3% hypertonic saline. Also receiving Declomycin and sodium tabs. NSAIDs on hold. Hyponatremia is being managed by nephrology. Patient appears euvolemic. Serum osmolality 255, urine osmolality 518, urine sodium 182. TSH 0.443 and free T4 at 0.96. Cortisol 12.3. Most recent available sodium is 122. Remainder of BMP includes a potassium 4.5, chloride 94, serum bicarb 24, BUN 14, creatinine 0.53, glucose 82. CBC is unremarkable, WBC count 4.9. Patient currently being evaluated in the ICU. Alert and oriented. She is resting comfortably on 2 L/min nasal cannula. SpO2 reading 96%. Chest x-ray done previously this admission showing no acute cardiopulmonary process. No focal consolidations. No obvious nodularities or masses. Right flank pain is improved. She has been seen by pain management. She does have a indwelling urinary catheter. Urometer is full with clear urine. Denies any dysuria, hematuria. Denies any fevers, chills, nausea or vomiting. No abnormal fluid intake. Currently on a 3% hypertonic saline infusion at 25 mL/h. Current vitals: Temperature 97.6 F, heart rate 64 bpm, blood pressure 192/58 mmHg, nontachypneic, SpO2 reading 96% on 2 L/min nasal cannula. I saw the patient in the intensive care unit. At the time of my evaluation, the patient was still on hypertonic saline and 3% and the most recent sodium level is at 122. The patient was on room air oxygen with a pulse ox of 99%. No focal neurological deficits. No headache. She was complaining of pain in her right posterior chest area which had some skeletal features as the patient was having increased pain with movement and palpation. The blood work was reviewed. The workup that has been done is consistent with SIADH. Patient is on hypertonic saline and fluid restriction is being implemented. Meanwhile, I also reviewed the CAT scan of the abdomen and pelvis. The patient has a nonobstructing 4 mm calculus in the right kidney and there is no evidence of any hydronephrosis. There is a large stool burden within the colon without evidence of any bowel obstruction. There is also some atelectatic changes in the lung bases right more than left. No sputum production. No hypoxemia and the patient's pulse ox 99% on on room air oxygen. No suspicion for pulmonary embolism. Procalcitonin level is at 0.02. On 10/30/2024, the patient continues to have pain across the posterior right chest area and this is essentially skeletal in nature. Area is tender to palpa tion. She is requiring pain control and the patient was given lidocaine patch and is also receiving [place]. She remains on room air oxygen. No significant respiratory difficulties for now. She is on room air oxygen. At the same time, the patient is being treated for SIADH. Sodium levels at 126. She remains on the nasal cyclin. She remains on hypertonic 3% saline solution and a sodium levels at 126. She is on Trileptal which could be contributing to her SIADH. She is also on Seroquel and Cogentin. Blood work from today shows a sodium level 126, subsequent level was at 129. BUN is 19 with a creatinine of 0.5. Bicarb is at 24. Objective - Vital Signs Vital signs: Vital Signs Temp 97.8 F 10/30/24 08:00 Pulse 68 10/30/24 10:00 Resp 23 10/30/24 10:00 BP 114/57 10/30/24 10:00 Pulse Ox 95 10/30/24 10:00 FiO2 Intake & Output 10/29/24 10/30/24 10/30/24 18:59 06:59 18:59 Intake Total 1042 560 208 Output Total 950 895 350 Balance 92 -335 -142 Weight 52.5 kg 58 kg Intake: Intake, IV Titration 330 360 90 Amount Sodium Chloride 3%( 330 360 90 Hypertonic) 500 ml @ 30 mls/hr IV .[id number] ONE Rx #:[id number] Oral 712 200 118 Output: Urine 950 895 350 Other: Voiding Method Indwelling Catheter Indwelling Catheter - Exam GENERAL EXAM: Alert, 64-year-old white female, comfortable in no apparent distress. HEAD: Normocephalic and atraumatic EYES: Normal reaction of pupils, equal size. NOSE: Clear with pink turbinates. THROAT: No erythema or exudates. NECK: No masses, no JVD. CHEST: No chest wall deformity. LUNGS: Equal air entry with no crackles, wheeze, rhonchi or dullness. On 2 L/min nasal cannula. SpO2 reading 98% on bedside monitor. No conversational dyspnea or accessory muscle use.. CVS: S1 and S2 normal with no audible murmur, regular rhythm. No extra heart sounds ABDOMEN: No hepatosplenomegaly, active bowel sounds, no guarding or rigidity. SPINE: No scoliosis or deformity SKIN: No rashes CENTRAL NERVOUS SYSTEM: No focal deficits, tone is normal in all 4 extremities. EXTREMITIES: There is no peripheral edema, clubbing, or cyanosis. Peripheral pulses are intact. - Labs CBC & Chem 7: 10/27/24 03:57 10/30/24 10:06 Labs: Abnormal Lab Results - Last 24 Hours (Table) 10/29/24 10/29/24 10/29/24 Range/Units 10:08 14:06 17:54 Sodium 122 L 124 L 126 L (137-145) mmol/L BUN (7-17) mg/dL Creatinine (0.52-1.04) mg/dL 10/29/24 10/30/24 10/30/24 Range/Units 22:16 01:54 05:32 Sodium 126 L 126 L 126 L (137-145) mmol/L BUN 19 H (7-17) mg/dL Creatinine 0.50 L (0.52-1.04) mg/dL Assessment and Plan Plan: Hyponatremia, suspect SIADH, currently on a 3% hypertonic saline infusion. The patient is hyponatremic needs to be further investigated. No clear underlying malignancy. This could be related to medication. Nephrology on the case. Sodium level is currently is at 126 and then 129. Fluid restriction. Hypertonic saline At 3% is still running Right posterior chest wall pain/flank pain, likely skeletal in nature. Nephrolithiasis, with a 4-5 mm right upper pole nonobstructive renal calcification Constipation, with large stool burden and no evidence of bowel obstruction per CT of the abdomen/pelvis History of anxiety/bipolar Plan: Stop the hypertonic saline solution Fluid restriction Continue demeclocycline Look for any other source of malignancy. A CAT scan of the chest may be needed at a later stage specially if the pain in her right posterior chest continues. Hyponatremia being managed by nephrology sodium chloride tabs 1 g twice daily and Declomycin Currently on a 1.2 L fluid restriction Will monitor sodium and neurochecks per protocol Chest x-ray done previously does not show any focal infiltrates or evidence of pneumonia, no nodularities or masses, possible trace bilateral pleural effusions NSAIDs currently on hold. Continue [place] for pain control and the patient was given lidocaine patch To be transferred out of the intensive care unit today. Sodium is to be monitored. Consider stopping Trileptal. Time with Patient: Greater than 30
[2024-10-30] MEDS: FUROSEMIDE 10 MG/ML 4 ML VIAL IV ONE (14:11)
--- NOTE | 2024-10-31 06:35 | P.PN ---
Subjective Progress Note Date: 10/30/24 patient 64-year-old lady with past medical history significant for urinary retention who presented the ER because abdominal pain. Patient has been evaluated in the ER 3 times the last 10 days with similar complaints. Patient had a CT abdomen pelvis done showing nonobstructive renal stone. Patient was discharged on Zofran and pain medications. Patient stated that she has been having right-sided flank pain for the last 2 days, pain is intermittent, severe intensity and colicky in nature, denies any aggravating or relieving factor associated abdominal pain. There is no complaint of fever or chills. There is no current nausea, and vomiting. Patient has been noticing decreasing urine output and stated that she has not been urinating much. Because of the symptoms, she was evaluated in the ER a day ago and the resulting CT scan showed right-sided nonobstructing renal stone. Patient was discharged to follow-up outpatient with urologist but returned within 24 hours with similar complaints Initial lab work done in the ER showed WBC 10.6, hemoglobin 12.7, platelet count 353, sodium 134, potassium 4.8, BUN 20, creatinine 0.60, glucose 85, calcium 9.3, bilirubin 0.4, AST 27, ALT 22, UA positive for nitrite, urine WBC 2, CT abdomen pelvis done showed nonobstructing right 3 mm renal stone Patient admitted to internal medicine service 10/24. Patient seen and examined. Still complaining of abdominal pain. Denies any nausea vomit 10/25/2024 Patient is seen and evaluated in follow-up continuing to report severe 10/10 pain and per nursing staff patient has been requesting Dilaudid dickson [id number]. Will consult pain management for further evaluation as patient reports she cannot return home in this much pain. Patient was evaluated by urology noted to have a ureteral stone that is nonobstructing recommending outpatient follow-up. Patient is continued on antibiotics and will continue for now with concerns of urinary tract infection. Patient is afebrile with no reported chest pain or shortness of breath. Patient reports to some nausea but has been tolerating diet. Encouraged increase activity as tolerated and will await pain management consult 10/26/2024 Evaluated today sitting up in the bed she is continuing to report right sided mid back pain that is wrapping around to the front. It is quite tender to palpate and patient is crying out and states that she is unable to get comfortable. She is requesting IV Dilaudid every 3 hours states the Toradol did not help and is refusing [place]. She was evaluated by pain management who felt this could have been a costochondritis and recommending NSAID therapy patient states that it is not helping. Abdominal pelvis CT shows nonobstructing 4 to 5 mm nonobstructing right renal calcification. And there is additional punctuate calcification of the right kidney there is no left renal calcifications and there is no hydronephrosis. There is large stool burden. Small bibasilar infiltrates and tiny effusions on the right greater than the left. Remains on IV ceftriaxone for acute urinary tract infection. 10/27/2024 Patient evaluated today in the intensive care unit. Having some anxiety related to social issues. Xanax has been increased to 1 mg BID. Patient again requesting IV dilaudid but OK with increasing the norco to 7.5 mg Q6h and we will try that with the increase in xanax. She does state that the right sided back pain has improved down to a 7/10. Continues on IV ceftriaxone and the urine culture is currently pending. Maintained on 3% saline and sodium is up to 122. Nephrology following. 10/28/2024 Was evaluated in follow-up in intensive care unit she is currently sedated in the chair attempting to have lunch. Patient does state that this morning her pain was better but currently now is rating it an 8 of 10 having a colicky right sided back/flank pain. She states that she has not passed a stone yet. Has an indwelling [place] catheter. Is currently off of 3% saline drip and is continued on oral sodium chloride tablets twice daily sodium today is 124. 10/29/2024 Patient is evaluated today in follow up in the intensive care unit. Continues to report significant right sided flank pain. No epigastric pain. She has been continued on oral norco. IV toradol was discontinued due to the hyponatremia. Continues on 3% hypertonic solution running at 30 mls/hr. Additionally has been started on Declomycin and received a dose of IV lasix. Continues on sodium chloride tablet twice daily. Nephrology following closely. Indwelling collado catheter in place and patient has adequate urine output. Clear yellow. She is not having any shortness of breath. KUB xray reveals 2 mm right renal stone. Pain management had evaluated the patient recommended norco. 10/30/2024 Patient is seen in follow-up today currently in the ICU although is a downgrade as patient's hypertonic solution has been discontinued. Sodium is 129 with nephrology following and will continue current regimen. Patient will need to continue Declomycin as well as sodium chloride tabs with close outpatient follow-up with nephrology. Patient stress multiple times during conversation she wants to go home and reports her pain continues to be severe at 10/10. Patient was evaluated by pain management recommending outpatient follow-up. REVIEW OF SYSTEMS: CONSTITUTIONAL: No fever, no malaise,. CARDIOVASCULAR: No chest pain, no palpitations, no syncope. PULMONARY: No shortness of breath, no cough GASTROINTESTINAL: As mentioned above NEUROLOGICAL: No headaches, reports of generalized weakness, reports of severe back pain/Flank pain PHYSICAL EXAMINATION: GENERAL: The patient is alert and oriented x3. Well developed, Appears older than stated age, thin built HEENT: Pupils are round and equally reacting to light. EOMI. No scleral icterus. No conjunctival pallor. Normocephalic, atraumatic. No pharyngeal erythema. No t hyromegaly. CARDIOVASCULAR: S1 and S2 present. No murmurs, rubs, or gallops. PULMONARY: Chest is clear to auscultation, no wheezing or crackles. ABDOMEN: Soft, tenderness to the right flank, nondistended, normoactive bowel sounds. No palpable organomegaly. MUSCULOSKELETAL: No joint swelling or deformity. EXTREMITIES: No cyanosis, clubbing, or pedal edema. NEUROLOGICAL: Gross neurological examination did not reveal any focal deficits. SKIN: No rashes. Assessment: Abdominal pain, multifactorial possibly secondary to urinary tract infection as well as large stool burden noted on CT. 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 Nonobstructing right renal stone patient continues to report right sided flank pain History of anxiety History of bipolar disorder History of chronic back pain GI prophylaxis DVT prophylaxis Full code Plan: Patient was seen and evaluated by urology reporting her pain is not secondary to this 5-10 mm nonobstructing stone. Recommends outpatient follow-up As patient continues to report right sided pain, had KUB xray in follow which now reveals a 2mm right renal stone. Pain management evaluated the patient recommends Toradol and lidocaine patch and outpatient follow-up. Continue on norco and IV toradol Recommend PT/OT therapy and increase activity as tolerated Recommend bowel regimen scheduled as well as as needed patient reports having a bowel movement yesterday. Continue as needed Xanax Patient to be inpatient status due to the hyponatremia Nephrology consultation patient remains in the intensive care unit currently on oral sodium chloride tablets twice daily. 3% saline drip has been stopped and patient is maintained on sodium chloride tabs along with Declomycin Patient remains in the intensive care unit although is a downgrade once a bed is available. And will continue with Q4h hour sodium checks. Repeat BMP in the AM. Patient reports she wants to go home and discussed with nephrology we will continue Declomycin along with sodium chloride tabs and repeat labs in a.m. and will likely discharge in 24 hours The impression and plan of care has been dictated by Berna Alfaro, Nurse Practitioner as directed. Dr. Beth MD I have performed a history and examination and MDM of this patient, discussed the same with the dictator, and agree with the dictator's assessment and plan as written ,documented as a scribe. Based on total visit time, I have performed more than 50% of the visit. Objective - Vital Signs Vital signs: Vital Signs Temp 97.8 F 10/30/24 08:00 Pulse 67 10/30/24 08:00 Resp 23 10/30/24 08:00 BP 99/48 10/30/24 08:00 Pulse Ox 99 10/30/24 08:00 FiO2 Intake & Output 10/29/24 10/30/24 10/30/24 18:59 06:59 18:59 Intake Total 1042 560 208 Output Total 950 895 350 Balance 92 -335 -142 Weight 52.5 kg 58 kg Intake: Intake, IV Titration 330 360 90 Amount Sodium Chloride 3%( 330 360 90 Hypertonic) 500 ml @ 30 mls/hr IV .[id number] ONE Rx #:[id number] Oral 712 200 118 Output: Urine 950 895 350 Other: Voiding Method Indwelling Catheter Indwelling Catheter - Labs CBC & Chem 7: 10/27/24 03:57 10/30/24 14:54 Labs: Abnormal Lab Results - Last 24 Hours (Table) 10/29/24 10/29/24 10/29/24 Range/Units 10:08 14:06 17:54 Sodium 122 L 124 L 126 L (137-145) mmol/L BUN (7-17) mg/dL Creatinine (0.52-1.04) mg/dL 10/29/24 10/30/24 10/30/24 Range/Units 22:16 01:54 05:32 Sodium 126 L 126 L 126 L (137-145) mmol/L BUN 19 H (7-17) mg/dL Creatinine 0.50 L (0.52-1.04) mg/dL
[2024-10-31 08:48] LABS: African American GFR (CKD) >90 (>60 ml/min/1.73 sqM); Anion Gap 8 mmol/L; Blood Urea Nitrogen 31 mg/dL (7-17); Calcium 9.7 mg/dL (8.4-10.2); Carbon Dioxide 24 mmol/L (22-30); Chloride 94 mmol/L (98-107); Glucose 83 mg/dL (74-99); Non-African American GFR(CKD) >90 (>60 ml/min/1.73 sqM); Potassium 4.8 mmol/L (3.5-5.1); Sodium 126 mmol/L (137-145)
[2024-10-31] MEDS: FUROSEMIDE 10 MG/ML 4 ML VIAL IV STA (10:14)
[2024-10-31] MEDS: SODIUM CHLORIDE TAB 1 GM TAB PO STA (10:14)
[2024-10-31 11:56] VITALS: BP 106/69; PULSE 62; RESP 18; TEMP 97.6
--- NOTE | 2024-10-31 16:32 | P.PN ---
Subjective Patient is seen for follow-up for hyponatremia secondary to SIADH. Status post 3% saline Sodium 126 earlier this morning. Received a dose of IV Lasix and repeat sodium is at 131. Patient remains on demeclocycline and sodium chloride tab as well. Regarding etiology of SIADH, it could be related to Trileptal however patient had been on it prior to admission. Serum sodium was not significantly low on admission. The only new medications she received was NSAIDs. This can also be associated with hyponatremia. Patient wants to go home Objective - Vital Signs Vital signs: Vital Signs Temp 97.6 F 10/31/24 11:54 Pulse 62 10/31/24 11:54 Resp 18 10/31/24 11:54 BP 106/69 10/31/24 11:54 Pulse Ox 97 10/31/24 11:54 FiO2 Intake & Output 10/30/24 10/31/24 10/31/24 18:59 06:59 18:59 Intake Total 714 180 Output Total 1850 1100 Balance -1136 -920 Weight 53.5 kg Intake: Intake, IV Titration 120 Amount Sodium Chloride 3%( 120 Hypertonic) 500 ml @ 30 mls/hr IV .[id number] ONE Rx #:[id number] Oral 594 180 Output: Urine 1850 1100 Other: Voiding Method Indwelling Catheter Toilet # Voids 2 # Bowel Movements 2 - Exam Patient is awake, comfortable, no acute distress. Examination of the heart S1 and S2 Examination of the lungs shows bilateral breath sounds are heard Abdomen is soft nontender Examination of lower extremities shows no evidence of edema [employer]USEUM ASSIST[employer] exam grossly intact - Labs CBC & Chem 7: 10/27/24 03:57 10/31/24 14:24 Labs: Abnormal Lab Results - Last 24 Hours (Table) 10/31/24 10/31/24 Range/Units 07:36 14:24 Sodium 126 L 131 L (137-145) mmol/L Chloride 94 L (98-107) mmol/L BUN 31 H (7-17) mg/dL Assessment and Plan Assessment: 1. Hyponatremia, most likely related to SIADH with acute drop in serum sodium post normal saline bolus. Patient has also been maintained on NSAIDs which can contribute to hyponatremia. She has been on Trileptal for some time now and serum sodium was not significantly low on initial admission but dropped subsequently about 2 days later with use of NSAIDs and IV fluids. Urine osmolality was 518 and random urine sodium was 182. Status post 3% saline, demeclocycline and sodium chloride tabs 2. Abdominal/ back pain 3. Right renal calculus 4 to 5 mm, nonobstructive, not believed to be the cause of the pain at this time. Patient is being followed by urology. No plans for intervention as pain is thought to be unrelated to the stone 4. History of anxiety Plan: IV Lasix x 1 Continue with demeclocycline and sodium chloride tabs upon discharge. Consider discontinuation of Trileptal Continue to avoid NSAIDs Follow-up in the office in 1 week post discharge. Repeat labs to be done in 2 to 3 days
--- NOTE | 2024-10-31 18:40 | P.PN ---
Subjective Progress Note Date: 10/31/24 Patient is a 64-year-old female with past medical history significant for anxiety, bipolar. Presents to the emergency department back on 10/22/2024 with a chief complaint of right flank pain and suprapubic pressure. Workup in the emergency department CT of the abdomen/pelvis demonstrates a 3 mm right upper pole renal stone, nonobstructive. No hydronephrosis. Mild fecal retention. Mildly prominent small bowel with possible mild enteritis/ileus. No bowel obstruction noted. Urinalysis positive for nitrates, trace leukocytes and bacteriuria. She was placed originally on IV Rocephin as empiric antibiotic coverage. Preliminary urine culture shows no growth at 18 hours. Patient developed hyponatremia, with a sodium as low as 119. Transferred to the intensive care unit back on 10/26/2024, and was placed on 3% hypertonic saline. Also receiving Declomycin and sodium tabs. NSAIDs on hold. Hyponatremia is being managed by nephrology. Patient appears euvolemic. Serum osmolality 255, urine osmolality 518, urine sodium 182. TSH 0.443 and free T4 at 0.96. Cortisol 12.3. Most recent available sodium is 122. Remainder of BMP includes a potassium 4.5, chloride 94, serum bicarb 24, BUN 14, creatinine 0.53, glucose 82. CBC is unremarkable, WBC count 4.9. Patient currently being evaluated in the ICU. Alert and oriented. She is resting comfortably on 2 L/min nasal cannula. SpO2 reading 96%. Chest x-ray done previously this admission showing no acute cardiopulmonary process. No focal consolidations. No obvious nodularities or masses. Right flank pain is improved. She has been seen by pain management. She does have a indwelling urinary catheter. Urometer is full with clear urine. Denies any dysuria, hematuria. Denies any fevers, chills, nausea or vomiting. No abnormal fluid intake. Currently on a 3% hypertonic saline infusion at 25 mL/h. Current vitals: Temperature 97.6 F, heart rate 64 bpm, blood pressure 192/58 mmHg, nontachypneic, SpO2 reading 96% on 2 L/min nasal cannula. I saw the patient in the intensive care unit. At the time of my evaluation, the patient was still on hypertonic saline and 3% and the most recent sodium level is at 122. The patient was on room air oxygen with a pulse ox of 99%. No focal neurological deficits. No headache. She was complaining of pain in her right posterior chest area which had some skeletal features as the patient was having increased pain with movement and palpation. The blood work was reviewed. The workup that has been done is consistent with SIADH. Patient is on hypertonic saline and fluid restriction is being implemented. Meanwhile, I also reviewed the CAT scan of the abdomen and pelvis. The patient has a nonobstructing 4 mm calculus in the right kidney and there is no evidence of any hydronephrosis. There is a large stool burden within the colon without evidence of any bowel obstruction. There is also some atelectatic changes in the lung bases right more than left. No sputum production. No hypoxemia and the patient's pulse ox 99% on on room air oxygen. No suspicion for pulmonary embolism. Procalcitonin level is at 0.02. On 10/30/2024, the patient continues to have pain across the posterior right chest area and this is essentially skeletal in nature. Area is tender to palpa tion. She is requiring pain control and the patient was given lidocaine patch and is also receiving [place]. She remains on room air oxygen. No significant respiratory difficulties for now. She is on room air oxygen. At the same time, the patient is being treated for SIADH. Sodium levels at 126. She remains on the nasal cyclin. She remains on hypertonic 3% saline solution and a sodium levels at 126. She is on Trileptal which could be contributing to her SIADH. She is also on Seroquel and Cogentin. Blood work from today shows a sodium level 126, subsequent level was at 129. BUN is 19 with a creatinine of 0.5. Bicarb is at 24. Today's evaluation of 10/31/2024, patient's pain is subsided. Breathing comfortably and she is on room air oxygen. The patient was in the intensive care unit for SIADH. Patient was treated with hypertonic 3% saline. Sodium level earlier this morning at 126. The patient was also given a dose of Lasix and subsequent sodium level came at 131. No significant complaints. No altered mentation. Hemodynamically stable. The patient will be kept on demeclocycline the patient will likely be discharged home today. Will discuss further with nephrology. Objective - Vital Signs Vital signs: Vital Signs Temp 97.6 F 10/31/24 11:54 Pulse 62 10/31/24 11:54 Resp 18 10/31/24 11:54 BP 106/69 10/31/24 11:54 Pulse Ox 97 10/31/24 11:54 FiO2 Intake & Output 10/30/24 10/31/24 10/31/24 18:59 06:59 18:59 Intake Total 714 180 Output Total 1850 1100 Balance -1136 -920 Weight 53.5 kg Intake: Intake, IV Titration 120 Amount Sodium Chloride 3%( 120 Hypertonic) 500 ml @ 30 mls/hr IV .[id number] ONE Rx #:[id number] Oral 594 180 Output: Urine 1850 1100 Other: Voiding Method Indwelling Catheter Toilet # Voids 2 # Bowel Movements 2 - Exam GENERAL EXAM: Alert, 64-year-old white female, comfortable in no apparent distress. HEAD: Normocephalic and atraumatic EYES: Normal reaction of pupils, equal size. NOSE: Clear with pink turbinates. THROAT: No erythema or exudates. NECK: No masses, no JVD. CHEST: No chest wall deformity. LUNGS: Equal air entry with no crackles, wheeze, rhonchi or dullness. On 2 L/min nasal cannula. SpO2 reading 98% on bedside monitor. No conversational dyspnea or accessory muscle use.. CVS: S1 and S2 normal with no audible murmur, regular rhythm. No extra heart sounds ABDOMEN: No hepatosplenomegaly, active bowel sounds, no guarding or rigidity. SPINE: No scoliosis or deformity SKIN: No rashes CENTRAL NERVOUS SYSTEM: No focal deficits, tone is normal in all 4 extremities. EXTREMITIES: There is no peripheral edema, clubbing, or cyanosis. Peripheral pulses are intact. - Labs CBC & Chem 7: 10/27/24 03:57 10/31/24 14:24 Labs: Abnormal Lab Results - Last 24 Hours (Table) 10/30/24 10/31/24 Range/Units 14:54 07:36 Sodium 129 L 126 L (137-145) mmol/L Chloride 94 L (98-107) mmol/L BUN 31 H (7-17) mg/dL Assessment and Plan Plan: Hyponatremia, suspect SIADH, currently off hypertonic saline, most recent sodium levels at 131. Given dose of Lasix today and the patient remains on demeclocycline Right posterior chest wall pain/flank pain, likely skeletal in nature, improved, pain is around 2 out of 10 in severity at this point Nephrolithiasis, with a 4-5 mm right upper pole nonobstructive renal calcification Constipation, with large stool burden and no evidence of bowel obstruction per CT of the abdomen/pelvis History of anxiety/bipolar Plan: Continue monitoring sodium level Fluid restriction Currently on a 1.2 L fluid restriction Chest x-ray done previously does not show any focal infiltrates or evidence of pneumonia, no nodularities or masses, possible trace bilateral pleural effusions NSAIDs currently on hold. Continue [place] for pain control and the patient was given lidocaine patch Would like to be discharged today. Will obtain a clearance from nephrology.
--- NOTE | 2024-11-03 21:02 | P.DS ---
Providers Date of admission: 10/22/24 17:53 Attending physician: Terrie De Anda Consults: 10/23/24 09:03 Consult Physician Urgent Consulting Provider: Nathen Pires Consult Reason/Comments: right flank, kidney stone Do you want consulting provider notified?: Yes 10/26/24 12:30 Consult Physician Routine Consulting Provider: Kofi Bess Consult Reason/Comments: hyponatremia Do you want consulting provider notified?: Yes 10/29/24 00:09 Consult Physician Routine Consulting Provider: Dennis Knox Consult Reason/Comments: Hyponatremia Do you want consulting provider notified?: Already Contacted 10/31/24 12:35 Consult Physician Routine Consulting Provider: Carlitos Cruz Consult Reason/Comments: was on lamictal in past now on trileptal but having hyponatremia. - Do you want consulting provider notified?: Yes Primary care physician: Kaycee Dinh Hospital Course: Final Diagnosis Abdominal pain, multifactorial possibly secondary to urinary tract infection as well as large stool burden noted on CT. 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 Nonobstructing right renal stone patient continues to report right sided flank pain History of anxiety History of bipolar disorder History of chronic back pain Discharge Disposition Stable for discharge home. Patient to discontinue ditropan and trileptal. Patient reports had been on lamictal in the past which wasnt controlling her bipolar symptoms so her PCP changed her to trileptal back in June of 2024. She wants to go back on the lamictal now. Discussed with nephrology and trileptal dose cause hyponatremia and has a greater affect on the sodium level than lamictal. Discussed with psychiatry informal consultation and gave recommendations for a starting dose of lamictal. Patient will need to see [facility] on follow along with her PCP Dr. Dinh. Patient to continue on declomycin and sodium chloride tab on discharge. Recommend repeat bmp and magnesium in 2 to 3 days and patient will also require close follow up with nephrology on discharge. Hospital Course patient 64-year-old lady with past medical history significant for urinary retention who presented the ER because abdominal pain. Patient has been evaluated in the ER 3 times the last 10 days with similar complaints. Patient had a CT abdomen pelvis done showing nonobstructive renal stone. Patient was discharged on Zofran and pain medications. Patient stated that she has been having right-sided flank pain for the last 2 days, pain is intermittent, severe intensity and colicky in nature, denies any aggravating or relieving factor associated abdominal pain. There is no complaint of fever or chills. There is no current nausea, and vomiting. Patient has been noticing decreasing urine output and stated that she has not been urinating much. Because of the symptoms, she was evaluated in the ER a day ago and the resulting CT scan showed right-sided nonobstructing renal stone. Patient was discharged to follow-up outpatient with urologist but returned within 24 hours with similar complaints. Initial lab work done in the ER showed WBC 10.6, hemoglobin 12.7, platelet count 353, sodium 134, potassium 4.8, BUN 20, creatinine 0.60, glucose 85, calcium 9.3, bilirubin 0.4, AST 27, ALT 22, UA positive for nitrite, urine WBC 2, CT abdomen pelvis done showed nonobstructing right 3 mm renal stone. Patient admitted to internal medicine service. Had consult placed to urology and pain management. She was evaluated by pain management who felt this could have been a costochondritis and recommending NSAID therapy patient states that it is not helping. Abdominal pelvis CT shows nonobstructing 4 to 5 mm nonobstructing right renal calcification. And there is additional punctuate calcification of the right kidney there is no left renal calcifications and there is no hydronephrosis. There is large stool burden. Small bibasilar infiltrates and tiny effusions on the right greater than the left. Started on IV ceftriaxone for acute urinary tract infection. Patients pain slowly improved hospital stay complicated by hyponatremia requiring 3% hypertonic solution and ICU care. nephrology followed patient started on declomycin, sodium chloride tabs and sodium now up to 131. Her abdominal pain is now minimal. She has been tolerated diet, bowels are moving and urinating without difficulty. She has been discharged home. Please see medication reconciliation for a list of current medications. Thank you for allowing us to participate in the care of this patient. The impression and plan of care has been dictated by Dilcia Renteria, Nurse Practitioner as directed. Dr. Beth MD I have performed a history and physical examination and medical decision making of this patient, discussed the same with the dictator, and agree with the dictators assessment and plan as written, documented as a scribe. Based on total visit time, I have performed more than 50% of this visit. Patient Condition at Discharge: Stable Plan - Discharge Summary Discharge Rx Participant: No New Discharge Prescriptions: New Tamsulosin [Flomax] 0.4 mg PO PC-BRKFST #30 cap HYDROcodone/APAP 7.5-325MG [[place] 7.5-325] 1 each PO BID #6 tab Demeclocycline [Declomycin] 300 mg PO BID #60 tab lamoTRIgine [LaMICtal] 25 mg PO BID #60 tab Sodium Chloride Tab 1 gm PO BID #60 tab Continue Zolpidem [Ambien] 10 mg PO HS Benztropine Mesylate [Cogentin] 1 mg PO BID PRN PRN Reason: w/Seroquel for RLS tiZANidine [Zanaflex] 4 mg PO DAILY QUEtiapine FUMARATE [SEROquel] 25 mg PO HS PRN PRN Reason: Insomnia ALPRAZolam [Xanax] 1 mg PO HS Discontinued Oxybutynin ER [Ditropan XL] 10 mg PO DAILY OXcarbazepine [Trileptal] 300 mg PO TID Discharge Medication List Zolpidem [Ambien] 10 mg PO HS 03/22/24 [History] tiZANidine [Zanaflex] 4 mg PO DAILY 03/22/24 [History] ALPRAZolam [Xanax] 1 mg PO HS 10/22/24 [History] Benztropine Mesylate [Cogentin] 1 mg PO BID PRN 10/22/24 [History] QUEtiapine FUMARATE [SEROquel] 25 mg PO HS PRN 10/22/24 [History] Demeclocycline [Declomycin] 300 mg PO BID #60 tab 10/31/24 [Rx] HYDROcodone/APAP 7.5-325MG [[place] 7.5-325] 1 each PO BID #6 tab 10/31/24 [Rx] Sodium Chloride Tab 1 gm PO BID #60 tab 10/31/24 [Rx] Tamsulosin [Flomax] 0.4 mg PO PC-BRKFST #30 cap 10/31/24 [Rx] lamoTRIgine [LaMICtal] 25 mg PO BID #60 tab 10/31/24 [Rx] Follow up Appointment(s)/Referral(s): Fern Villarreal MD [STAFF PHYSICIAN] - 1 Week (Please call tomorrow as office is closed for the day) [facility], [NON-STAFF] - Kaycee Dinh DO [Primary Care Provider] - 1-2 days (Please call tomorrow as of fice is closed for the day) [facility] [NON-STAFF] - 1 Week Ambulatory/Diagnostic Orders: Basic Metabolic Panel [LAB.AMB] Time Frame: 3 Days, Location: None Selected Magnesium [LAB.AMB] Location: None Selected Activity/Diet/Wound Care/Special Instructions: Stop the Trileptal Start the lamictal 25 mg twice daily Recommend to follow up with [facility] on discharge Follow up with Dr. Dinh in the office 1 to 2 days Follow up with Dr Villarreal in the office in 1 week Discharge Disposition: HOME SELF-CARE
== END 2024-10-31 17:18 | disposition home or self-care (01) | DRG 690 ==
LOC: EC 10:07 → 6NMEDSUR 17:52 → OBSVTOIN 17:53 → 6NMEDSUR 10-23 00:18 → 2SICU 10-26 20:12 → 3SCARD 10-30 14:05
PROVIDERS: ADMIT Hospitalist; ATTEND Hospitalist
DX: N39.0 Urinary tract infection, site not specified (principal); E22.2 Syndrome of inappropriate secretion of antidiuretic hormone; F31.9 Bipolar disorder, unspecified; I10 Essential (primary) hypertension; N20.2 Calculus of kidney with calculus of ureter; E78.5 Hyperlipidemia, unspecified; M51.369 Other intervertebral disc degeneration, lumbar region without mention of lumbar back pain or lower extremity pain; F41.0 Panic disorder [episodic paroxysmal anxiety]; Z87.442 Personal history of urinary calculi; Z87.891 Personal history of nicotine dependence; N28.89 Other specified disorders of kidney and ureter; K59.00 Constipation, unspecified; Z79.899 Other long term (current) drug therapy; Z79.82 Long term (current) use of aspirin; Z90.721 Acquired absence of ovaries, unilateral; Z87.19 Personal history of other diseases of the digestive system; Z88.0 Allergy status to penicillin; Z88.1 Allergy status to other antibiotic agents
CPT/HCPCS: 36415; 51702; 51798; 71045; 72070; 72128; 74018; 74176; 80048; 80053; 81001; 82533; 82570; 83605; 83930; 83935; 84145; 84295; 84300; 84439; 84443; 85025; 87086; 96361; 96365; 96375; 96376; 99285

== ENCOUNTER 2024-11-08 15:41 | Observation (INO) | payer MEDICARE, OTHER ==
--- NOTE | 2024-11-08 15:51 | ED ---
General Adult HPI - General Chief complaint: Altered Mental Status Stated complaint: altered Time Seen by Provider: 11/08/24 15:46 Source: patient, EMS, RN notes reviewed Mode of arrival: EMS Limitations: altered mental status - History of Present Illness Initial comments: Patient is a 64-year-old female present to the emergency department by EMS with concerns for altered mental status. Unclear onset. Home care nurse called EMS for a well check. Patient has been agitated with EMS. Patient remains agitated at this time and refuses to answer questions or provide history. - Related Data Home Medications Medication Instructions Recorded Confirmed Zolpidem [Ambien] 10 mg PO HS 03/22/24 11/08/24 tiZANidine [Zanaflex] 4 mg PO DAILY 03/22/24 11/08/24 ALPRAZolam [Xanax] 1 mg PO HS 10/22/24 11/08/24 Benztropine Mesylate [Cogentin] 1 mg PO HS PRN 10/22/24 11/08/24 QUEtiapine FUMARATE [SEROquel] 25 mg PO HS PRN 10/22/24 11/08/24 Cephalexin [Keflex] 500 mg PO Q12HR 11/08/24 11/08/24 Ketorolac [Toradol] 10 mg PO TID 11/08/24 11/08/24 Ondansetron [Zofran] 4 mg PO DIRECTED PRN 11/08/24 11/08/24 Previous Rx's Medication Instructions Recorded Demeclocycline [Declomycin] 300 mg PO BID #60 tab 10/31/24 HYDROcodone/APAP 7.5-325MG [[place] 1 each PO BID #6 tab 10/31/24 7.5-325] Sodium Chloride Tab 1 gm PO BID #60 tab 10/31/24 Tamsulosin [Flomax] 0.4 mg PO PC-BRKFST #30 cap 10/31/24 lamoTRIgine [LaMICtal] 25 mg PO BID #60 tab 10/31/24 Allergies Allergy/AdvReac Type Severity Reaction Status Date / Time Penicillins Allergy Unknown Rash/Hives/Itching Verified 11/08/24 16:13 all over body clonidine AdvReac "Black Out" Verified 11/08/24 16:13 Review of Systems ROS Statement: Those systems with pertinent positive or pertinent negative responses have been documented in the HPI. ROS Other: All systems not noted in ROS Statement are negative. Limitations: ROS unobtainable due to patients medical condition Past Medical History Past Medical History: Hyperlipidemia, Hypertension Additional Past Medical History / Comment(s): occ migraines, hemorrhoids, degenerative disks L4 and L5. Bipolar History of Any Multi-Drug Resistant Organisms: None Reported Past Surgical History: Appendectomy, Section, Orthopedic Surgery Additional Past Surgical History / Comment(s): LEFT ARM (POST TRAUMATIC INJURY) reattached, RIGHT FOOT X3, LEFT KNEE ARTHROSCOPY, left oophorectomy, hemorroidectomy Past Anesthesia/Blood Transfusion Reactions: No Reported Reaction Past Psychological History: Anxiety, Bipolar, Depression, Panic Disorder Smoking Status: Former smoker Past Alcohol Use History: None Reported Additional Past Alcohol Use History / Comment(s): quit smoking 2015, smoked for 15 yrs, < 1 PPD Past Drug Use History: None Reported - Past Family History Mother Family Medical History: No Reported History General Exam Limitations: altered mental status General appearance: alert, anxious Head exam: Present: atraumatic Eye exam: Present: normal appearance, PERRL, EOMI ENT exam: Present: normal oropharynx Neck exam: Present: normal inspection. Absent: tenderness, meningismus Respiratory exam: Present: normal lung sounds bilaterally Cardiovascular Exam: Present: regular rate, normal rhythm GI/Abdominal exam: Present: soft. Absent: tenderness Extremities exam: Present: normal inspection. Absent: tenderness, pedal edema, calf tenderness Neurological exam: Present: alert. Absent: motor sensory deficit Psychiatric exam: Present: agitated, anxious, manic Skin exam: Present: normal color Course Vital Signs 11/08/24 11/08/24 15:43 16:36 Temperature 98.6 F Pulse Rate 115 H 82 Respiratory 26 H 20 Rate Blood Pressure 127/100 93/66 O2 Sat by Pulse 96 96 Oximetry EKG Findings - EKG Results: EKG: interpreted by ERMD, sinus rhythm, normal axis, normal QRS, normal ST/T Medical Decision Making - Medical Decision Making Was pt. sent in by a medical professional or institution (, PA, SPORTS MEDICINE COORDINATOR, urgent care, hospital, or skilled nursing...) When possible be specific @ -No Did you speak to anyone other than the patient for history (EMS, parent, family, police, friend...)? What history was obtained from this source @ -EMS provides history as patient will not Did you review nursing and triage notes (agree or disagree)? Why? @ -I reviewed and agree with nursing and triage notes Were old charts reviewed (outside hosp., previous admission, EMS record, old EKG, old radiological studies, urgent care reports/EKG's, skilled nursing records)? Report findings @ -No old charts were reviewed Differential Diagnosis (chest pain, altered mental status, abdominal pain women, abdominal pain men, vaginal bleeding, weakness, fever, dyspnea, syncope, headache, dizziness, GI bleed, back pain, seizure, CVA, palpatations, mental health, musculoskeletal)? @ -Differential Altered Mental Status: Hypoglycemia, DKA, hypercapnia, ETOH, overdose, CO poisoning, trauma, myxedema coma, HTN encephalopathy, infection, encephalitis, psychosis, intercranial hemorrhage, hepatic encephalopathy, meningitis, CVA, this is not meant to be an all-inclusive list EKG interpreted by me (3pts min.). @ -As above X-rays interpreted by me (1pt min.). @ -Chest x-ray shows no acute process CT interpreted by me (1pt min.). @ -CT scan of the brain does not reveal acute abnormality. U/S interpreted by me (1pt. min.). @ -None done What testing was considered but not performed or refused? (CT, X-rays, U/S, labs)? Why? @ -None What meds were considered but not given or refused? Why? @ -None Did you discuss the management of the patient with other professionals (professionals i.e. , PA, SPORTS MEDICINE COORDINATOR, lab, RT, psych nurse, social media job titles, cold mill operator, teacher, submarine advisory team watch officer, comp field case manager)? Give summary @ -Case was discussed with Dr. Santiago who will admit covering hospital call Was smoking cessation discussed for >3mins.? @ -No Was critical care preformed (if so, how long)? @ -No Were there social determinants of health that impacted care today? How? (Home lessness, low income, unemployed, alcoholism, drug addiction, transportation, low edu. Level, literacy, decrease access to med. care, correction, rehab)? @ -No Was there de-escalation of care discussed even if they declined (Discuss DNR or withdrawal of care, Hospice)? DNR status @ -No What co-morbidities impacted this encounter? (DM, HTN, Smoking, COPD, CAD, Cancer, CVA, ARF, Chemo, Hep., AIDS, mental health diagnosis, sleep apnea, morbid obesity)? @ -History of bipolar Was patient admitted / discharged? Hospital course, mention meds given and route, prescriptions, significant lab abnormalities, going to OR and other pertinent info. @ -Patient presents with altered mental status, appears manic and agitated. Patient is intoxicated however there is concern for bipolar ariana. Patient will be admitted with psychiatric consult. Patient reevaluated and updated. Undiagnosed new problem with uncertain prognosis? @ -No Drug Therapy requiring intensive monitoring for toxicity (Heparin, Nitro, Insulin, Cardizem)? @ -No Were any procedures done? @ -No Diagnosis/symptom? @ -Alcohol intoxication, bipolar Acute, or Chronic, or Acute on Chronic? @ -Acute, acute Uncomplicated (without systemic symptoms) or Complicated (systemic symptoms)? @ -Default Side effects of treatment? @ -No Exacerbation, Progression, or Severe Exacerbation? @ -No Poses a threat to life or bodily function? How? (Chest pain, [place], [place], pneumonia, PE, COPD, DKA, ARF, appy, cholecystitis, CVA, Diverticulitis, Homicidal, Suicidal, threat to staff... and all critical care pts) @ -No - Lab Data Result diagrams: 11/08/24 15:59 11/08/24 15:59 Lab Results 11/08/24 11/08/24 11/08/24 Range/Units 15:59 15:59 15:59 WBC 11.4 H (3.8-10.6) k/uL RBC 4.53 (3.80-5.40) m/uL Hgb 14.0 (11.4-16.0) gm/dL Hct 43.0 (34.0-46.0) % MCV 95.0 (80.0-100.0) fL MCH 30.9 (25.0-35.0) pg MCHC 32.5 (31.0-37.0) g/dL RDW 12.8 (11.5-15.5) % Plt Count 436 (150-450) k/uL MPV 6.8 Neutrophils % 57 % Lymphocytes % 38 % Monocytes % 2 % Eosinophils % 1 % Basophils % 1 % Neutrophils # 6.5 (1.3-7.7) k/uL Lymphocytes # 4.4 (1.0-4.8) k/uL Monocytes # 0.2 (0-1.0) k/uL Eosinophils # 0.1 (0-0.7) k/uL Basophils # 0.1 (0-0.2) k/uL PT 11.2 (10.0-12.5) sec INR 1.0 (<1.2) APTT 24.8 (22.0-30.0) sec Sodium 138 (137-145) mmol/L Potassium 4.2 (3.5-5.1) mmol/L Chloride 101 (98-107) mmol/L Carbon Dioxide 16 L (22-30) mmol/L Anion Gap 21 mmol/L BUN 33 H (7-17) mg/dL Creatinine 0.76 (0.52-1.04) mg/dL Est GFR (CKD-EPI)AfAm >90 (>60 ml/min/1.73 sqM) Est GFR (CKD-EPI)NonAf 84 (>60 ml/min/1.73 sqM) Glucose 84 (74-99) mg/dL POC Glucose (mg/dL) (70-110) mg/dL POC Glu Dish Up Person ID Calcium 9.2 (8.4-10.2) mg/dL Total Bilirubin 0.4 (0.2-1.3) mg/dL AST 46 H (14-36) U/L ALT 30 (4-34) U/L Alkaline Phosphatase 136 H (38-126) U/L Troponin I (0.000-0.034) ng/mL Total Protein 7.3 (6.3-8.2) g/dL Albumin 4.5 (3.5-5.0) g/dL Serum Alcohol 299 H* mg/dL 11/08/24 11/08/24 11/08/24 Range/Units 15:59 16:10 17:30 WBC (3.8-10.6) k/uL RBC (3.80-5.40) m/uL Hgb (11.4-16.0) gm/dL Hct (34.0-46.0) % MCV (80.0-100.0) fL MCH (25.0-35.0) pg MCHC (31.0-37.0) g/dL RDW (11.5-15.5) % Plt Count (150-450) k/uL MPV Neutrophils % % Lymphocytes % % Monocytes % % Eosinophils % % Basophils % % Neutrophils # (1.3-7.7) k/uL Lymphocytes # (1.0-4.8) k/uL Monocytes # (0-1.0) k/uL Eosinophils # (0-0.7) k/uL Basophils # (0-0.2) k/uL PT (10.0-12.5) sec INR (<1.2) APTT (22.0-30.0) sec Sodium (137-145) mmol/L Potassium (3.5-5.1) mmol/L Chloride (98-107) mmol/L Carbon Dioxide (22-30) mmol/L Anion Gap mmol/L BUN (7-17) mg/dL Creatinine (0.52-1.04) mg/dL Est GFR (CKD-EPI)AfAm (>60 ml/min/1.73 sqM) Est GFR (CKD-EPI)NonAf (>60 ml/min/1.73 sqM) Glucose (74-99) mg/dL POC Glucose (mg/dL) 85 78 (70-110) mg/dL POC Glu Dish Up Person ID Lorena Ruiz Kaela Calcium (8.4-10.2) mg/dL Total Bilirubin (0.2-1.3) mg/dL AST (14-36) U/L ALT (4-34) U/L Alkaline Phosphatase (38-126) U/L Troponin I <0.012 (0.000-0.034) ng/mL Total Protein (6.3-8.2) g/dL Albumin (3.5-5.0) g/dL Serum Alcohol mg/dL Disposition Clinical Impression: Altered mental status, Alcoholic intoxication Disposition: ADMITTED IP TO THIS HOSP Is patient prescribed a controlled substance at d/c from ED?: No Referrals: None,Stated [Primary Care Provider] - 1-2 days Time of Disposition: 18:44
[2024-11-08] MEDS: LORazepam 2 MG/ML INJ IV STA ×2 (15:58→18:04)
[2024-11-08] MEDS: SODIUM CHLORIDE 0.9% 1,000 ML IV ONE (15:59)
[2024-11-08 16:10] LABS: Basophils # (A) 0.1 k/uL (0-0.2); Basophils % (A) 1 %; Eosinophils # (A) 0.1 k/uL (0-0.7); Eosinophils % (A) 1 %; Lymphocytes # (A) 4.4 k/uL (1.0-4.8); Lymphocytes % (A) 38 %; MCH 30.9 pg (25.0-35.0); MCHC 32.5 g/dL (31.0-37.0); Mean Platelet Volume 6.8; Monocytes # (A) 0.2 k/uL (0-1.0); Monocytes % (A) 2 %; Neutrophils # (A) 6.5 k/uL (1.3-7.7); Neutrophils % (A) 57 %; Platelet Count 436 k/uL (150-450); RBC 4.53 m/uL (3.80-5.40); RDW 12.8 % (11.5-15.5); WBC 11.4 k/uL (3.8-10.6)
[2024-11-08 16:11] LABS: Glucose,Whole Blood 85 mg/dL (70-110)
[2024-11-08 16:19] LABS: Partial Thromboplastin Time 24.8 sec (22.0-30.0); Prothrombin Time 11.2 sec (10.0-12.5)
[2024-11-08 16:26] LABS: ALT 30 U/L (4-34); AST 46 U/L (14-36); African American GFR (CKD) >90 (>60 ml/min/1.73 sqM); Albumin 4.5 g/dL (3.5-5.0); Alkaline Phosphatase 136 U/L (38-126); Anion Gap 21 mmol/L; Blood Urea Nitrogen 33 mg/dL (7-17); Calcium 9.2 mg/dL (8.4-10.2); Carbon Dioxide 16 mmol/L (22-30); Chloride 101 mmol/L (98-107); Glucose 84 mg/dL (74-99); Non-African American GFR(CKD) 84 (>60 ml/min/1.73 sqM); Potassium 4.2 mmol/L (3.5-5.1); Sodium 138 mmol/L (137-145); Total Bilirubin 0.4 mg/dL (0.2-1.3); Total Protein 7.3 g/dL (6.3-8.2)
[2024-11-08 16:34] LABS: Alcohol 299 mg/dL
--- NOTE | 2024-11-08 16:47 | XR ---
EXAMINATION TYPE: XR chest 1V portable DATE OF EXAM: 11/08/2024 4:23 PM COMPARISON: 10/25/2024 CLINICAL INDICATION: Female, 64 years old with history of altered mental status, TECHNIQUE: XR chest 1V portable view(s) obtained. FINDINGS: The heart size is normal. The pulmonary vasculature is normal. The lungs are clear. IMPRESSION: 1. No acute pulmonary process. [facility], , 11/08/2024 4:45 PM
[2024-11-08 17:32] LABS: Glucose,Whole Blood 78 mg/dL (70-110)
--- NOTE | 2024-11-08 18:07 | CT ---
EXAMINATION TYPE: CT brain wo con DATE OF EXAM: 11/08/2024 5:59 PM COMPARISON: 03/22/2024 CLINICAL INDICATION: Female, 64 years old with history of Altered mental status, ams TECHNIQUE: CT of the brain is performed utilizing 3 mm thick sections through the posterior fossa and 3 mm thick sections through the remaining calvarium. Study is performed within 24 hours of arrival to the hospital. Contrast used: mL of , (none if empty) CT DLP: 1076.2 mGycm, Automated exposure control for dose reduction was used. FINDINGS: No abnormal hyperdensity is present to suggest an acute intracranial hemorrhage. No mass lesion is evident. No acute infarcts are evident. Ventricles and sulci are appropriate for the patient age. Paranasal sinuses and mastoid air cells within the [id number] are clear. IMPRESSION: 1. No acute intracranial process. Follow up MRI can be performed as clinically indicated. [facility], , 11/08/2024 6:05 PM
[2024-11-08] MEDS ORDERED: ONDANSETRON 4 MG PO PRN (18:44)
[2024-11-08] MEDS ORDERED: NALOXONE 0.4 MG/ML 1 ML VIAL IV PRN (18:45)
[2024-11-08] MEDS ORDERED: ONDANSETRON 4 MG/2 ML VIAL IVP PRN (18:45)
[2024-11-08] MEDS: lamoTRIgine 25 MG TAB PO SCH (20:25)
[2024-11-08] MEDS: HYDROcodone/APAP 7.5-325MG 1 EACH TAB PO SCH (20:25)
[2024-11-08] MEDS: ALPRAZolam 1 MG TAB PO SCH (20:25)
[2024-11-08] MEDS: ZOLPIDEM 5 MG TAB PO SCH (20:25)
[2024-11-08] MEDS: SODIUM CHLORIDE 0.9% 1,000 ML IV SCH (20:26)
[2024-11-08] MEDS: SODIUM CHLORIDE TAB 1 GM TAB PO SCH (20:26)
[2024-11-08] MEDS: DEMECLOCYCLINE 150 MG TAB PO SCH (20:26)
[2024-11-08] MEDS: ETODOLAC 300 MG CAPSULE PO SCH (21:15)
[2024-11-09] MEDS: BENZTROPINE MESYLATE 1 MG TAB PO PRN (03:26)
[2024-11-09] MEDS: QUEtiapine 25 MG TAB PO PRN (03:26)
[2024-11-09 07:56] LABS: Appearance,Urine Clear (Clear); Bilirubin,Urine 1+ (Negative); Blood,Urine Negative (Negative); Color,Urine Yellow; Glucose,Urine (UA) Negative (Negative); Ketones,Urine Negative (Negative); Leukocyte Esterase,Urine Negative (Negative); Nitrite,Urine Negative (Negative); PH, Urine 5.5 (5.0-8.0); Protein,Urine Negative (Negative); Specific Gravity,Urine 1.021 (1.001-1.035); Urobilinogen,Urine <2.0 mg/dL (<2.0)
[2024-11-09 07:58] LABS: Amphetamine Screen,Urine Not Detected (NotDetected); Barbiturate Screen,Urine Not Detected (NotDetected); Benzodiazepines Screen,Urine Detected (NotDetected); Cocaine Screen,Urine Not Detected (NotDetected); Methadone Screen, Urine Not Detected (NotDetected); Opiate Screen,Urine Detected (NotDetected); Oxycodone Screen, Urine Not Detected (NotDetected); Phencyclidine Screen,Urine Not Detected (NotDetected); Tricyclic Antidepressant,Urine Detected (NotDetected); Urn Cannabinoid Scrn Not Detected (NotDetected)
[2024-11-09] MEDS: tiZANidine 4 MG TAB PO SCH (08:16)
[2024-11-09] MEDS: TAMSULOSIN 0.4 MG CAP.ER.24H PO SCH (08:16)
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
[2024-11-09] MEDS: ALPRAZolam 0.5 MG TAB PO SCH (21:22)
[2024-11-09] MEDS: MELATONIN 5 MG TABLET PO SCH (21:22)
[2024-11-10 11:29] LABS: Basophils % (A) 1 %; Eosinophils # (A) 0.2 k/uL (0-0.7); Eosinophils % (A) 4 %; HCT 38.2 % (34.0-46.0); HGB 12.3 gm/dL (11.4-16.0); Lymphocytes # (A) 1.9 k/uL (1.0-4.8); Lymphocytes % (A) 36 %; MCH 31.5 pg (25.0-35.0); MCHC 32.2 g/dL (31.0-37.0); MCV 97.7 fL (80.0-100.0); Mean Platelet Volume 7.3; Monocytes # (A) 0.2 k/uL (0-1.0); Monocytes % (A) 4 %; Neutrophils # (A) 2.8 k/uL (1.3-7.7); Neutrophils % (A) 54 %; Platelet Count 320 k/uL (150-450); RBC 3.91 m/uL (3.80-5.40); RDW 12.9 % (11.5-15.5); WBC 5.3 k/uL (3.8-10.6)
[2024-11-10 11:44] LABS: African American GFR (CKD) >90 (>60 ml/min/1.73 sqM); Anion Gap 5 mmol/L; Blood Urea Nitrogen 18 mg/dL (7-17); Calcium 8.9 mg/dL (8.4-10.2); Carbon Dioxide 28 mmol/L (22-30); Chloride 105 mmol/L (98-107); Glucose 101 mg/dL (74-99); Non-African American GFR(CKD) >90 (>60 ml/min/1.73 sqM); Potassium 4.4 mmol/L (3.5-5.1); Sodium 138 mmol/L (137-145)
--- NOTE | 2024-11-10 17:32 | P.HPIM ---
History of Present Illness H&P Date: 11/09/24 Chief Complaint: Altered mental status 64-year-old female, history of hypertension, hyperlipidemia, presents to the emergency department by EMS with concerns for altered mental status. Unclear onset. Home care nurse called EMS for a well check. Patient has been agitated with EMS. Patient remains agitated at this time and refuses to answer questions or provide history. Blood work completed in ED reveals a WBC of 11.4, hemoglobin of 14 and platelet count of 436, sodium 138, potassium 4.2, BUNs/creatinine of 33/0.76, AST mildly elevated at 46; blood alcohol level of 299 UA is unremarkable Urine drug screen is positive for opiates, barbiturates and benzodiazepines Review of Systems ROS unobtainable: due to mental status Past Medical History Past Medical History: Hyperlipidemia, Hypertension Additional Past Medical History / Comment(s): occ migraines, hemorrhoids, degenerative disks L4 and L5. Bipolar History of Any Multi-Drug Resistant Organisms: None Reported Past Surgical History: Appendectomy, Section, Orthopedic Surgery Additional Past Surgical History / Comment(s): LEFT ARM (POST TRAUMATIC INJURY) reattached, RIGHT FOOT X3, LEFT KNEE ARTHROSCOPY, left oophorectomy, hemorroidectomy Past Anesthesia/Blood Transfusion Reactions: No Reported Reaction Past Psychological History: Anxiety, Bipolar, Depression, Panic Disorder Smoking Status: Former smoker Past Alcohol Use History: None Reported Additional Past Alcohol Use History / Comment(s): quit smoking 2015, smoked for 15 yrs, < 1 PPD Past Drug Use History: None Reported - Past Family History Mother Family Medical History: No Reported History Medications and Allergies Home Medications Medication Instructions Recorded Confirmed Type Zolpidem [Ambien] 10 mg PO HS 03/22/24 11/08/24 History tiZANidine [Zanaflex] 4 mg PO DAILY 03/22/24 11/08/24 History ALPRAZolam [Xanax] 1 mg PO HS 10/22/24 11/08/24 History Benztropine Mesylate [Cogentin] 1 mg PO HS PRN 10/22/24 11/08/24 History QUEtiapine FUMARATE [SEROquel] 25 mg PO HS PRN 10/22/24 11/08/24 History Demeclocycline [Declomycin] 300 mg PO BID #60 tab 10/31/24 11/08/24 Rx HYDROcodone/APAP 7.5-325MG [[place] 1 each PO BID #6 tab 10/31/24 11/08/24 Rx 7.5-325] Sodium Chloride Tab 1 gm PO BID #60 tab 10/31/24 11/08/24 Rx Tamsulosin [Flomax] 0.4 mg PO PC-BRKFST #30 cap 10/31/24 11/08/24 Rx lamoTRIgine [LaMICtal] 25 mg PO BID #60 tab 10/31/24 11/08/24 Rx Cephalexin [Keflex] 500 mg PO Q12HR 11/08/24 11/08/24 History Ketorolac [Toradol] 10 mg PO TID 11/08/24 11/08/24 History Ondansetron [Zofran] 4 mg PO DIRECTED PRN 11/08/24 11/08/24 History Allergies Allergy/AdvReac Type Severity Reaction Status Date / Time Penicillins Allergy Unknown Rash/Hives/Itching Verified 11/08/24 16:13 all over body clonidine AdvReac "Black Out" Verified 11/08/24 16:13 Physical Exam Vitals: Vital Signs Temp Pulse Resp BP Pulse Ox 11/09/24 07:21 74 18 167/92 95 11/09/24 02:16 77 16 119/67 96 11/08/24 16:36 82 20 93/66 96 11/08/24 15:43 98.6 F 115 H 26 H 127/100 96 Intake and Output 11/08/24 11/09/24 11/09/24 22:59 06:59 14:59 Other: Weight 49.895 kg General appearance: alert, anxious Head exam: Present: atraumatic Eye exam: Present: normal appearance, PERRL, EOMI ENT exam: Present: normal oropharynx Neck exam: Present: normal inspection. Absent: tenderness, meningismus Respiratory exam: Present: normal lung sounds bilaterally Cardiovascular Exam: Present: regular rate, normal rhythm GI/Abdominal exam: Present: soft. Absent: tenderness Extremities exam: Present: normal inspection. Absent: tenderness, pedal edema, calf tenderness Neurological exam: Present: alert. Absent: motor sensory deficit Psychiatric exam: Present: agitated, anxious, manic Skin exam: Present: normal color Results CBC & Chem 7: 11/10/24 10:55 11/10/24 10:55 Labs: Abnormal Lab Results - Last 24 Hours (Table) 11/08/24 11/08/24 11/09/24 Range/Units 15:59 15:59 07:19 WBC 11.4 H (3.8-10.6) k/uL Carbon Dioxide 16 L (22-30) mmol/L BUN 33 H (7-17) mg/dL AST 46 H (14-36) U/L Alkaline Phosphatase 136 H (38-126) U/L Urine Bilirubin (Negative) Urine Opiates Screen Detected H (NotDetected) U Tricyclic Antidepress Detected H (NotDetected) U Benzodiazepines Scrn Detected H (NotDetected) Serum Alcohol 299 H* mg/dL 11/09/24 Range/Units 07:19 WBC (3.8-10.6) k/uL Carbon Dioxide (22-30) mmol/L BUN (7-17) mg/dL AST (14-36) U/L Alkaline Phosphatase (38-126) U/L Urine Bilirubin 1+ H (Negative) Urine Opiates Screen (NotDetected) U Tricyclic Antidepress (NotDetected) U Benzodiazepines Scrn (NotDetected) Serum Alcohol mg/dL Assessment and Plan Assessment: 1. Alcohol intoxication/pending withdrawal; blood alcohol level elevated at 299 -Patient has been admitted with [facility] protocol Ativan -IV fluids; thiamine and folic acid 2. Suicidal ideation; patient has been evaluated by psych; inpatient psychiatric admission not recommended at this time; psych recommending to keep her off of Xanax since patient is also on Ambien; melatonin was added for sleep with Seroquel as needed for Lamictal 25 mg twice daily 3. Hypertension; currently not on any antihypertensive therapy 4. Hyperlipidemia; not currently on any statin therapy 5. Bipolar disorder; continue medications as recommended by psych DVT prophylaxis; SCDs CODE STATUS; full code
--- NOTE | 2024-11-10 17:33 | P.PN ---
Subjective Progress Note Date: 11/10/24 64-year-old female, history of hypertension, hyperlipidemia, presents to the emergency department by EMS with concerns for altered mental status. Unclear onset. Home care nurse called EMS for a well check. Patient has been agitated with EMS. Patient remains agitated at this time and refuses to answer questions or provide history. Blood work completed in ED reveals a WBC of 11.4, hemoglobin of 14 and platelet count of 436, sodium 138, potassium 4.2, BUNs/creatinine of 33/0.76, AST mildly elevated at 46; blood alcohol level of 299 UA is unremarkable Urine drug screen is positive for opiates, barbiturates and benzodiazepines Objective - Vital Signs Vital signs: Vital Signs Temp 98.4 F 11/10/24 07:38 Pulse 61 11/10/24 07:38 Resp 16 11/10/24 07:38 BP 157/80 11/10/24 07:38 Pulse Ox 97 11/10/24 07:38 FiO2 Intake & Output 11/09/24 11/10/24 11/10/24 18:59 06:59 18:59 Weight 49.895 kg Other: Voiding Method Toilet Toilet # Voids 3 - Exam General appearance: alert, anxious Head exam: Present: atraumatic Eye exam: Present: normal appearance, PERRL, EOMI ENT exam: Present: normal oropharynx Neck exam: Present: normal inspection. Absent: tenderness, meningismus Respiratory exam: Present: normal lung sounds bilaterally Cardiovascular Exam: Present: regular rate, normal rhythm GI/Abdominal exam: Present: soft. Absent: tenderness Extremities exam: Present: normal inspection. Absent: tenderness, pedal edema, calf tenderness Neurological exam: Present: alert. Absent: motor sensory deficit Psychiatric exam: Present: agitated, anxious, manic Skin exam: Present: normal color - Labs CBC & Chem 7: 11/10/24 10:55 11/10/24 10:55 Assessment and Plan Assessment: 1. Alcohol intoxication/pending withdrawal; blood alcohol level elevated at 299 -Patient has been admitted with [facility] protocol Ativan -IV fluids; thiamine and folic acid 2. Suicidal ideation; patient has been evaluated by psych; inpatient psychiatric admission not recommended at this time; psych recommending to keep her off of Xanax since patient is also on Ambien; melatonin was added for sleep with Seroquel as needed for Lamictal 25 mg twice daily 3. Hypertension; currently not on any antihypertensive therapy 4. Hyperlipidemia; not currently on any statin therapy 5. Bipolar disorder; continue medications as recommended by psych DVT prophylaxis; SCDs CODE STATUS; full code
--- NOTE | 2024-11-11 00:41 | XR ---
EXAM: XR Right Wrist, 2 Views CLINICAL HISTORY: ITS.REASON XR Reason: pain, bruising RIGHT wrist TECHNIQUE: Frontal and lateral views of the right wrist. COMPARISON: No relevant prior studies available. FINDINGS: Bones/joints: No acute fracture. No dislocation. Soft tissues: Unremarkable. No radiopaque foreign body. IMPRESSION: No acute osseous findings.
[2024-11-11 08:33] LABS: Basophils % (A) 0 %; Eosinophils # (A) 0.3 k/uL (0-0.7); Eosinophils % (A) 4 %; HCT 38.9 % (34.0-46.0); HGB 12.2 gm/dL (11.4-16.0); Lymphocytes # (A) 2.1 k/uL (1.0-4.8); Lymphocytes % (A) 34 %; MCH 30.8 pg (25.0-35.0); MCHC 31.4 g/dL (31.0-37.0); Mean Platelet Volume 8.4; Monocytes # (A) 0.2 k/uL (0-1.0); Monocytes % (A) 3 %; Neutrophils # (A) 3.6 k/uL (1.3-7.7); Neutrophils % (A) 57 %; Platelet Count 313 k/uL (150-450); RBC 3.96 m/uL (3.80-5.40); RDW 13.2 % (11.5-15.5); WBC 6.3 k/uL (3.8-10.6)
[2024-11-11 08:54] LABS: African American GFR (CKD) >90 (>60 ml/min/1.73 sqM); Anion Gap 6 mmol/L; Blood Urea Nitrogen 14 mg/dL (7-17); Calcium 9.1 mg/dL (8.4-10.2); Carbon Dioxide 26 mmol/L (22-30); Chloride 105 mmol/L (98-107); Glucose 96 mg/dL (74-99); Non-African American GFR(CKD) >90 (>60 ml/min/1.73 sqM); Potassium 4.2 mmol/L (3.5-5.1); Sodium 137 mmol/L (137-145)
[2024-11-11 14:25] VITALS: BP 138/84; PULSE 61; RESP 20; TEMP 98.3
== END 2024-11-11 14:43 | disposition home or self-care (01) ==
LOC: EC 15:41 → 5NMEDONC 18:45
PROVIDERS: ADMIT Internal Medicine; ATTEND Internal Medicine
DX: F10.129 Alcohol abuse with intoxication, unspecified (principal); R45.851 Suicidal ideations; F31.9 Bipolar disorder, unspecified; I10 Essential (primary) hypertension; E78.5 Hyperlipidemia, unspecified; F41.0 Panic disorder [episodic paroxysmal anxiety]; F17.210 Nicotine dependence, cigarettes, uncomplicated; Y90.8 Blood alcohol level of 240 mg/100 ml or more; Z79.899 Other long term (current) drug therapy; Z88.0 Allergy status to penicillin
CPT/HCPCS: 96361 ×2; 96376; 96374; 99285; 36415; 93005; 80053; 80048 ×2; 80175; 84484; 85025 ×3; 85610; 85730; 81003; 80306; 73100; 71045; 70450; G0378 ×4; G0480; J2060; 80320

== ENCOUNTER 2024-12-04 03:53 | Emergency (ER) | payer MEDICARE, OTHER ==
[2024-12-04 04:05] VITALS: RESP 18
[2024-12-04 04:44] LABS: Basophils % (A) 0 %; Eosinophils # (A) 0.1 k/uL (0-0.7); Eosinophils % (A) 1 %; HCT 45.6 % (34.0-46.0); Lymphocytes # (A) 2.7 k/uL (1.0-4.8); Lymphocytes % (A) 24 %; MCH 30.8 pg (25.0-35.0); Mean Platelet Volume 7.4; Monocytes # (A) 0.4 k/uL (0-1.0); Monocytes % (A) 3 %; Neutrophils # (A) 8.1 k/uL (1.3-7.7); Neutrophils % (A) 71 %; Platelet Count 434 k/uL (150-450); RBC 5.02 m/uL (3.80-5.40); RDW 12.3 % (11.5-15.5); WBC 11.5 k/uL (3.8-10.6)
--- NOTE | 2024-12-04 05:02 | ED ---
Nausea/Vomiting/Diarrhea HPI <Rolando Stephens - Last Filed: 12/05/24 10:50> - General Source: patient Mode of arrival: EMS Limitations: no limitations - History of Present Illness MD complaint: nausea, vomiting -: hour(s) Description of Vomiting: food contents Associated Abdominal Pain: No Severity scale (1-10): 0 Consistency: constant Improves with: none Worsens with: none Associated Symptoms: other (Anxiety) <Joe Vides - Last Filed: 12/22/24 20:32> - General Chief complaint: Nausea/Vomiting/Diarrhea Stated complaint: nausea Time Seen by Provider: 12/04/24 04:12 - History of Present Illness Initial comments: This patient is a 64-year-old woman who presents with flareup of nausea. The patient states that she has had weeks of nausea and that her physician had finally prescribed her medication for that. She is having hard time recalling what medication but states that it has not been working well. Over the course tonight she has had a flareup and states she is not able to tolerate any fluids. Patient denies fever or chills. No abdominal pain. No change in bowel movements or urination. (Joe Vides) - Related Data Home Medications Medication Instructions Recorded Confirmed Zolpidem [Ambien] 10 mg PO HS 03/22/24 11/08/24 tiZANidine [Zanaflex] 4 mg PO DAILY 03/22/24 11/08/24 Benztropine Mesylate [Cogentin] 1 mg PO HS PRN 10/22/24 11/08/24 QUEtiapine FUMARATE [SEROquel] 25 mg PO HS PRN 10/22/24 11/08/24 Cephalexin [Keflex] 500 mg PO Q12HR 11/08/24 11/08/24 Ketorolac [Toradol] 10 mg PO TID 11/08/24 11/08/24 Ondansetron [Zofran] 4 mg PO DIRECTED PRN 11/08/24 11/08/24 Previous Rx's Medication Instructions Recorded Demeclocycline [Declomycin] 300 mg PO BID #60 tab 10/31/24 HYDROcodone/APAP 7.5-325MG [[place] 1 each PO BID #6 tab 10/31/24 7.5-325] Sodium Chloride Tab 1 gm PO BID #60 tab 10/31/24 Tamsulosin [Flomax] 0.4 mg PO PC-BRKFST #30 cap 10/31/24 lamoTRIgine [LaMICtal] 25 mg PO BID #60 tab 10/31/24 ALPRAZolam [Xanax] 0.5 mg PO HS tab 11/11/24 Melatonin 5 mg PO HS tab 11/11/24 Ondansetron [Zofran] 4 mg PO Q8HR PRN #10 tab 12/04/24 Allergies Allergy/AdvReac Type Severity Reaction Status Date / Time Penicillins Allergy Unknown Rash/Hives/Itching Verified 12/04/24 04:05 all over body clonidine AdvReac "Black Out" Verified 12/04/24 04:05 Review of Systems ROS Other: All systems not noted in ROS Statement are negative. <Rolando Stephens - Last Filed: 12/05/24 10:50> ROS Other: All systems not noted in ROS Statement are negative. Constitutional: Denies: fever, chills, weakness Respiratory: Denies: cough, dyspnea Cardiovascular: Denies: chest pain, palpitations, edema Gastrointestinal: Reports: nausea, vomiting. Denies: abdominal pain, diarrhea, constipation, hematemesis, melena, hematochezia Genitourinary: Denies: dysuria, hematuria Musculoskeletal: Denies: back pain Skin: Denies: rash Neurological: Denies: headache, weakness, numbness <Joe Vides - Last Filed: 12/22/24 20:32> ROS Statement: Those systems with pertinent positive or pertinent negative responses have been documented in the HPI. Past Medical History Past Medical History: Hyperlipidemia, Hypertension Additional Past Medical History / Comment(s): occ migraines, hemorrhoids, d egenerative disks L4 and L5. Bipolar History of Any Multi-Drug Resistant Organisms: None Reported Past Surgical History: Appendectomy, Section, Orthopedic Surgery Additional Past Surgical History / Comment(s): LEFT ARM (POST TRAUMATIC INJURY) reattached, RIGHT FOOT X3, LEFT KNEE ARTHROSCOPY, left oophorectomy, he morroidectomy Past Anesthesia/Blood Transfusion Reactions: No Reported Reaction Past Psychological History: Anxiety, Bipolar, Depression, Panic Disorder Smoking Status: Former smoker Past Alcohol Use History: None Reported Past Drug Use History: None Reported - Past Family History Mother Family Medical History: No Reported History <Joe Vides - Last Filed: 12/22/24 20:32> General Exam General appearance: alert, in no apparent distress Head exam: Present: atraumatic, normocephalic Eye exam: Present: normal appearance. Absent: scleral icterus, conjunctival injection ENT exam: Present: normal oropharynx Neck exam: Present: normal inspection Respiratory exam: Present: normal lung sounds bilaterally. Absent: respiratory distress, wheezes, rales, rhonchi, stridor, accessory muscle use Cardiovascular Exam: Present: regular rate, normal rhythm, normal heart sounds. Absent: systolic murmur, diastolic murmur, rubs, gallop GI/Abdominal exam: Present: soft. Absent: distended, tenderness, guarding, rebound, rigid, mass Extremities exam: Present: normal inspection, normal capillary refill. Absent: pedal edema, calf tenderness Back exam: Present: normal inspection. Absent: CVA tenderness (R), CVA tenderness (L) Neurological exam: Present: alert Psychiatric exam: Present: anxious Skin exam: Present: warm, dry, intact, normal color. Absent: rash <Joe Vides - Last Filed: 12/22/24 20:32> Course Vital Signs 12/04/24 12/04/24 04:02 07:34 Temperature 98.2 F 98.1 F Pulse Rate 91 94 Respiratory 18 18 Rate Blood Pressure 151/78 140/89 O2 Sat by Pulse 99 98 Oximetry Medical Decision Making - Lab Data Result diagrams: 12/04/24 04:31 12/04/24 06:10 <Rolando Stephens - Last Filed: 12/05/24 10:50> - Lab Data Result diagrams: 12/04/24 04:31 12/04/24 06:10 <Joe Vides - Last Filed: 12/22/24 20:32> - Medical Decision Making Was pt. sent in by a medical professional or institution (, PA, CYTOTECHNOLOGIST/HISTOTECHNOLOGIST, urgent care, hospital, or longterm...) When possible be specific @ -[No] Did you speak to anyone other than the patient for history (EMS, parent, family, police, friend...)? What history was obtained from this source @ -[No] Did you review nursing and triage notes (agree or disagree)? Why? @ -[I reviewed and agree with nursing and triage notes] Were old charts reviewed (outside hosp., previous admission, EMS record, old EKG, old radiological studies, urgent care reports/EKG's, longterm records)? Report findings @ -[No old charts were reviewed] Differential Diagnosis (chest pain, altered mental status, abdominal pain women, abdominal pain men, vaginal bleeding, weakness, fever, dyspnea, syncope, headache, dizziness, GI bleed, back pain, seizure, CVA, palpatations, mental health, musculoskeletal)? @ -[not applicable] EKG interpreted by me (3pts min.). @ -[As above] X-rays interpreted by me (1pt min.). @ -[None done] CT interpreted by me (1pt min.). @ -[None done] U/S interpreted by me (1pt. min.). @ -[None done] What testing was considered but not performed or refused? (CT, X-rays, U/S, labs)? Why? @ -[None] What meds were considered but not given or refused? Why? @ -[None] Did you discuss the management of the patient with other professionals (professionals i.e. , PA, CYTOTECHNOLOGIST/HISTOTECHNOLOGIST, lab, RT, psych nurse, social psychologist, blender laborer, teacher, detention officer, watch case polisher)? Give summary @ -[No] Was smoking cessation discussed for >3mins.? @ -[No] Was critical care preformed (if so, how long)? @ -[No] Were there social determinants of health that impacted care today? How? (Homelessness, low income, unemployed, alcoholism, drug addiction, transportation, low edu. Level, literacy, decrease access to med. care, custodial, re hab)? @ -[No] Was there de-escalation of care discussed even if they declined (Discuss DNR or withdrawal of care, Hospice)? DNR status @ -[No] What co-morbidities impacted this encounter? (DM, HTN, Smoking, COPD, CAD, Cancer, CVA, ARF, Chemo, Hep., AIDS, mental health diagnosis, sleep apnea, morbi d obesity)? @ -[None] Was patient admitted / discharged? Hospital course, mention meds given and ro [place], prescriptions, significant lab abnormalities, going to OR and other pertinent info. @ -[Patient is a 64-year-old woman here with acute vomiting. The patient's exam not suggestive of acute surgical condition. The patient was turned over to the following emergency physician while pending the effects of medication. It was reported to me that she subsequently was feeling better and wanted to go home. Undiagnosed new problem with uncertain prognosis? @ -[No] Drug Therapy requiring intensive monitoring for toxicity (Heparin, Nitro, Insulin, Cardizem)? @ -[No] Were any procedures done? @ -[No] Diagnosis/symptom? @ -[Acute nausea and vomiting Acute, or Chronic, or Acute on Chronic? @ -[Acute Uncomplicated (without systemic symptoms) or Complicated (systemic symptoms)? @ -[Uncomplicated Side effects of treatment? @ -[No] Exacerbation, Progression, or Severe Exacerbation? @ -[No] Poses a threat to life or bodily function? How? (Chest pain, [place], [place], pneumonia, PE, COPD, DKA, ARF, appy, cholecystitis, CVA, Diverticulitis, Homicidal, Suicidal, threat to staff... and all critical care pts) @ -[No] All treatments are based on ideal body weight as in ED triage (Joe Vides) - Lab Data Lab Results 12/04/24 12/04/24 12/04/24 Range/Units 04:31 04:31 06:10 WBC 11.5 H (3.8-10.6) k/uL RBC 5.02 (3.80-5.40) m/uL Hgb 15.5 D (11.4-16.0) gm/dL Hct 45.6 (34.0-46.0) % MCV 90.7 D (80.0-100.0) fL MCH 30.8 (25.0-35.0) pg MCHC 34.0 (31.0-37.0) g/dL RDW 12.3 (11.5-15.5) % Plt Count 434 (150-450) k/uL MPV 7.4 Neutrophils % 71 % Lymphocytes % 24 % Monocytes % 3 % Eosinophils % 1 % Basophils % 0 % Neutrophils # 8.1 H (1.3-7.7) k/uL Lymphocytes # 2.7 (1.0-4.8) k/uL Monocytes # 0.4 (0-1.0) k/uL Eosinophils # 0.1 (0-0.7) k/uL Basophils # 0.0 (0-0.2) k/uL Sodium 134 L (137-145) mmol/L Potassium 3.6 (3.5-5.1) mmol/L Chloride 94 L (98-107) mmol/L Carbon Dioxide 27 (22-30) mmol/L Anion Gap 13 mmol/L BUN 15 (7-17) mg/dL Creatinine 0.59 (0.52-1.04) mg/dL Est GFR (CKD-EPI)AfAm >90 (>60 ml/min/1.73 sqM) Est GFR (CKD-EPI)NonAf >90 (>60 ml/min/1.73 sqM) Glucose 120 H (74-99) mg/dL Calcium 10.4 H (8.4-10.2) mg/dL Total Bilirubin 1.7 H (0.2-1.3) mg/dL AST 45 H (14-36) U/L ALT 34 (4-34) U/L Alkaline Phosphatase 199 H (38-126) U/L Total Protein 8.0 (6.3-8.2) g/dL Albumin 4.8 (3.5-5.0) g/dL Urine Color Urine Appearance (Clear) Urine pH (5.0-8.0) Ur Specific [place] (1.001-1.035) Urine Protein (Negative) Urine Glucose (UA) (Negative) Urine Ketones (Negative) Urine Blood (Negative) Urine Nitrite (Negative) Urine Bilirubin (Negative) Urine Urobilinogen (<2.0) mg/dL Ur Leukocyte Esterase (Negative) Urine RBC (0-5) /hpf Urine WBC (0-5) /hpf Ur Squamous Epith Cells (0-4) /hpf Amorphous Sediment (None) /hpf Urine Mucus (None) /hpf Influenza Type A (PCR) Not Detected (Not Detectd) Influenza Type B (PCR) Not Detected (Not Detectd) RSV (PCR) Not Detected (Not Detectd) SARS-CoV-2 (PCR) Not Detected (Not Detectd) 12/04/24 Range/Units 07:04 WBC (3.8-10.6) k/uL RBC (3.80-5.40) m/uL Hgb (11.4-16.0) gm/dL Hct (34.0-46.0) % MCV (80.0-100.0) fL MCH (25.0-35.0) pg MCHC (31.0-37.0) g/dL RDW (11.5-15.5) % Plt Count (150-450) k/uL MPV Neutrophils % % Lymphocytes % % Monocytes % % Eosinophils % % Basophils % % Neutrophils # (1.3-7.7) k/uL Lymphocytes # (1.0-4.8) k/uL Monocytes # (0-1.0) k/uL Eosinophils # (0-0.7) k/uL Basophils # (0-0.2) k/uL Sodium (137-145) mmol/L Potassium (3.5-5.1) mmol/L Chloride (98-107) mmol/L Carbon Dioxide (22-30) mmol/L Anion Gap mmol/L BUN (7-17) mg/dL Creatinine (0.52-1.04) mg/dL Est GFR (CKD-EPI)AfAm (>60 ml/min/1.73 sqM) Est GFR (CKD-EPI)NonAf (>60 ml/min/1.73 sqM) Glucose (74-99) mg/dL Calcium (8.4-10.2) mg/dL Total Bilirubin (0.2-1.3) mg/dL AST (14-36) U/L ALT (4-34) U/L Alkaline Phosphatase (38-126) U/L Total Protein (6.3-8.2) g/dL Albumin (3.5-5.0) g/dL Urine Color Yellow Urine Appearance Cloudy H (Clear) Urine pH 8.5 H (5.0-8.0) Ur Specific [place] 1.016 (1.001-1.035) Urine Protein 2+ H (Negative) Urine Glucose (UA) Negative (Negative) Urine Ketones 2+ H (Negative) Urine Blood Small H (Negative) Urine Nitrite Negative (Negative) Urine Bilirubin Negative (Negative) Urine Urobilinogen <2.0 (<2.0) mg/dL Ur Leukocyte Esterase Negative (Negative) Urine RBC 15 H (0-5) /hpf Urine WBC 3 (0-5) /hpf Ur Squamous Epith Cells 6 H (0-4) /hpf Amorphous Sediment Rare H (None) /hpf Urine Mucus Rare H (None) /hpf Influenza Type A (PCR) (Not Detectd) Influenza Type B (PCR) (Not Detectd) RSV (PCR) (Not Detectd) SARS-CoV-2 (PCR) (Not Detectd) Disposition Is patient prescribed a controlled substance at d/c from ED?: No <Rolando Stephens - Last Filed: 12/05/24 10:50> <Joe Vides - Last Filed: 12/22/24 20:32> Clinical Impression: Acute vomiting Disposition: HOME SELF-CARE Instructions (If sedation given, give patient instructions): Acute Nausea and Vomiting (ED) Prescriptions: Ondansetron [Zofran] 4 mg PO Q8HR PRN #10 tab PRN Reason: Vomiting Referrals: Kaycee Dinh DO [Primary Care Provider] - 1-2 days
[2024-12-04] MEDS: ONDANSETRON 4 MG/2 ML VIAL IVP STA ×2 (05:18→07:35)
[2024-12-04] MEDS: SODIUM CHLORIDE 0.9% 500 ML 500 ML IV STA (05:18)
[2024-12-04 05:19] LABS: Influenza A Not Detected (Not Detectd); Influenza B Not Detected (Not Detectd); RSV Not Detected (Not Detectd)
--- NOTE | 2024-12-04 06:17 | XR ---
EXAMINATION TYPE: XR KUB DATE OF EXAM: 12/04/2024 4:42 AM CLINICAL INDICATION: Female, 64 years old with history of pain, pain TECHNIQUE: 1 upright view of the abdomen. COMPARISON: Abdominal x-ray October 28, 2024. FINDINGS: Gas seen in nondistended stomach. Scattered gas is seen in non-distended small and large darnell wel loops. There is 8 mm left sided calculus now at L5 level presumed slightly progressed distally in the left ureter from most recent x-ray. No free air is identified. Lung bases are clear. Visualized osseous structures are intact. IMPRESSION: Slowly progressing 8 mm left mid ureter calculus. [facility], , 12/04/2024 6:15 AM
[2024-12-04 06:32] LABS: HGB 15.5 gm/dL (11.4-16.0); MCV 90.7 fL (80.0-100.0)
[2024-12-04 06:34] LABS: ALT 34 U/L (4-34); AST 45 U/L (14-36); African American GFR (CKD) >90 (>60 ml/min/1.73 sqM); Albumin 4.8 g/dL (3.5-5.0); Alkaline Phosphatase 199 U/L (38-126); Anion Gap 13 mmol/L; Blood Urea Nitrogen 15 mg/dL (7-17); Calcium 10.4 mg/dL (8.4-10.2); Carbon Dioxide 27 mmol/L (22-30); Chloride 94 mmol/L (98-107); Glucose 120 mg/dL (74-99); Non-African American GFR(CKD) >90 (>60 ml/min/1.73 sqM); Potassium 3.6 mmol/L (3.5-5.1); Sodium 134 mmol/L (137-145); Total Bilirubin 1.7 mg/dL (0.2-1.3)
[2024-12-04] MEDS: METOCLOPRAMIDE 5 MG/ML 2 ML VIAL IVP STA (06:58)
[2024-12-04 07:35] VITALS: BP 140/89; PULSE 94; TEMP 98.1
[2024-12-04 07:45] LABS: Amorphous Sediment,Urine Rare /hpf; Appearance,Urine Cloudy (Clear); Bilirubin,Urine Negative (Negative); Blood,Urine Small (Negative); Color,Urine Yellow; Glucose,Urine (UA) Negative (Negative); Ketones,Urine 2+ (Negative); Leukocyte Esterase,Urine Negative (Negative); Mucus,Urine Rare /hpf; Nitrite,Urine Negative (Negative); PH, Urine 8.5 (5.0-8.0); Protein,Urine 2+ (Negative); RBC,Urine 15 /hpf (0-5); Specific Gravity,Urine 1.016 (1.001-1.035); Squamous Epithelial Cell,Urine 6 /hpf (0-4); Urobilinogen,Urine <2.0 mg/dL (<2.0); WBC,Urine 3 /hpf (0-5)
[2024-12-04] MEDS: METOCLOPRAMIDE 5 MG/ML 2 ML VIAL IM STA (07:47)
== END 2024-12-04 07:50 | disposition home or self-care (01) ==
LOC: EC 03:53
DX: R11.2 Nausea with vomiting, unspecified (principal); Z87.891 Personal history of nicotine dependence; Z88.0 Allergy status to penicillin; Z88.1 Allergy status to other antibiotic agents
CPT/HCPCS: 36415; 80053; 85025; 81001; 87636; 74018; 99285; 96374; 96375; 96372; J2765; J2405

== ENCOUNTER 2024-12-28 20:57 | Emergency (ER) | payer MEDICARE, OTHER ==
[2024-12-28 21:24] VITALS: RESP 16
--- NOTE | 2024-12-28 21:26 | ED ---
General Adult HPI - General Chief complaint: Urogenital Stated complaint: NVD Time Seen by Provider: 12/28/24 21:02 Source: patient, EMS Mode of arrival: EMS Limitations: no limitations - History of Present Illness Initial comments: This is a pleasant 64-year-old female presenting today for right-sided flank pain and nausea. States she has been send with kidney stones in September. Her pain today is sharp and intermittent in nature, improves with lying still. Similar to prior kidney stones. Endorses associated nausea that started yesterday. 3 episodes of nonbloody nonbilious emesis. States has not been able to keep anything down since then. Denies any abdominal pain, chest pain, shortness of breath, fevers, cough, chills, hematuria or dysuria. States that her urine feels hot. Prior abdominal surgeries include a prior appendectomy. No pain into prior to arrival. She does request a GI cocktail and home Xanax. Recent falls, numbness or weakness in her legs. Currently denies any dizziness. - Related Data Home Medications Medication Instructions Recorded Confirmed Zolpidem [Ambien] 10 mg PO HS 03/22/24 11/08/24 tiZANidine [Zanaflex] 4 mg PO DAILY 03/22/24 11/08/24 Benztropine Mesylate [Cogentin] 1 mg PO HS PRN 10/22/24 11/08/24 QUEtiapine FUMARATE [SEROquel] 25 mg PO HS PRN 10/22/24 11/08/24 Cephalexin [Keflex] 500 mg PO Q12HR 11/08/24 11/08/24 Ketorolac [Toradol] 10 mg PO TID 11/08/24 11/08/24 Ondansetron [Zofran] 4 mg PO DIRECTED PRN 11/08/24 11/08/24 Previous Rx's Medication Instructions Recorded Demeclocycline [Declomycin] 300 mg PO BID #60 tab 10/31/24 HYDROcodone/APAP 7.5-325MG [[place] 1 each PO BID #6 tab 10/31/24 7.5-325] Sodium Chloride Tab 1 gm PO BID #60 tab 10/31/24 Tamsulosin [Flomax] 0.4 mg PO PC-BRKFST #30 cap 10/31/24 lamoTRIgine [LaMICtal] 25 mg PO BID #60 tab 10/31/24 ALPRAZolam [Xanax] 0.5 mg PO HS tab 11/11/24 Melatonin 5 mg PO HS tab 11/11/24 Ondansetron [Zofran] 4 mg PO Q8HR PRN #10 tab 12/04/24 Famotidine [Pepcid] 20 mg PO BID PRN 30 Days #30 tablet 12/29/24 Mag Hydrox/Al Hydrox/Simeth 0 ml PO DAILY PRN #300 ml 12/29/24 [Maalox] Allergies Allergy/AdvReac Type Severity Reaction Status Date / Time Penicillins Allergy Unknown Rash/Hives/Itching Verified 12/04/24 04:05 all over body clonidine AdvReac "Black Out" Verified 12/04/24 04:05 Review of Systems ROS Statement: Those systems with pertinent positive or pertinent negative responses have been documented in the HPI. ROS Other: All systems not noted in ROS Statement are negative. Past Medical History Past Medical History: Hyperlipidemia, Hypertension Additional Past Medical History / Comment(s): occ migraines, hemorrhoids, degenerative disks L4 and L5. Bipolar History of Any Multi-Drug Resistant Organisms: None Reported Past Surgical History: Appendectomy, Section, Orthopedic Surgery Additional Past Surgical History / Comment(s): LEFT ARM (POST TRAUMATIC INJURY) reattached, RIGHT FOOT X3, LEFT KNEE ARTHROSCOPY, left oophorectomy, hemorroidectomy Past Anesthesia/Blood Transfusion Reactions: No Reported Reaction Past Psychological History: Anxiety, Bipolar, Depression, Panic Disorder Smoking Status: Former smoker Past Alcohol Use History: None Reported Past Drug Use History: None Reported - Past Family History Mother Family Medical History: No Reported History General Exam - General Exam Comments Initial Comments: PE: CONSTITUTIONAL: [no apparent distress, well appearing] SKIN: [warm, dry, no jaundice, hives or petechiae] EYES:[ pupils are equally round, extraocular movements intact without nystagmus, clear conjunctiva, non-icteric sclera] HENT: [normocephalic, atraumatic, moist mucus membranes, oropharynx clear without exudates] NECK: , [Full range of motion, normal appearance] PULMONARY: [clear to auscultation without wheezes, rhonchi, or rales, normal excursion, no accessory muscle use and no stridor] CARDIOVASCULAR:[ regular rate, rhythm, normal S1 and S2. No appreciated murmurs, rubs or gallops. Strong radial pulses with intact distal perfusion. No lower extremity edema] GASTROINTESTINAL: [soft, active bowel sounds throughout, non-tender, non- distended, no palpable masses, no rebound or guarding. No hepatosplenomegaly] GENITOURINARY: No CVA tenderness MUSCULOSKELETAL: [Extremities have no gross deformity, no edema, redness, or swelling. No calf swelling ] NEUROLOGIC: [_a/o x 3, GCS 15, normal mentation and speech. Moves all extremities x 4 without motor or sensory deficit] PSYCHIATRIC:[ _normal mood and affect, thought process is clear and linear] Limitations: no limitations Course Vital Signs 12/28/24 12/28/24 20:58 22:27 Pulse Rate 76 68 Respiratory 16 16 Rate Blood Pressure 153/91 152/83 O2 Sat by Pulse 100 97 Oximetry Medical Decision Making - Medical Decision Making Was pt. sent in by a medical professional or institution (, PA, FINANCIAL MANAGEMENT CONSULTANT, urgent care, hospital, or long-term...) When possible be specific @ -[No] Did you speak to anyone other than the patient for history (EMS, parent, family, police, friend...)? What history was obtained from this source @ -[No] Did you review nursing and triage notes (agree or disagree)? Why? @ -[I reviewed nursing and triage notes] Were old charts reviewed (outside hosp., previous admission, EMS record, old EKG, old radiological studies, urgent care reports/EKG's, long-term records)? Report findings @ -[Medical records reviewed]-Patient most recent imaging was an x-ray [facility], on 12/04 that showed a slowly progressing 8 mm left mid ureter calculus Differential Diagnosis (chest pain, altered mental status, abdominal pain women, abdominal pain men, vaginal bleeding, weakness, fever, dyspnea, syncope, headache, dizziness, GI bleed, back pain, seizure, CVA, palpatations, mental health, musculoskeletal)? @Differential Abdominal Pain Women: Appendicitis, Cholecystitis, diverticulosis, ischemic bowel, pancreatitis, hepatitis, UTI, gastroenteritis, AAA, incarcerated hernia, bowel obstruction, constipation, inflammatory bowel, hepatitis, peptic ulcer disease, splenic infarction, perforated viscus, vulvitis, ovarian torsion, PID, kidney stone, pl acenta abruption, this is not meant to be an all-inclusive list EKG interpreted by me (3pts min.). @ -[As above] X-rays interpreted by me (1pt min.). @ -[None done] CT interpreted by me (1pt min.). @ -[None done] U/S interpreted by me (1pt. min.). @ -[None done] What testing was considered but not performed or refused? (CT, X-rays, U/S, labs)? Why? @ -[None] What meds were considered but not given or refused? Why? @ -[None] Did you discuss the management of the patient with other professionals (professionals i.e. , PA, FINANCIAL MANAGEMENT CONSULTANT, lab, RT, psych nurse, social insurance adviser, lumber loader, teacher, account officer, pillowcase folder)? Give summary @ -[No] Was smoking cessation discussed for >3mins.? @ -[No] Was critical care preformed (if so, how long)? @ -[No] Were there social determinants of health that impacted care today? How? (Homelessness, low income, unemployed, alcoholism, drug addiction, transportation, low edu. Level, literacy, decrease access to med. care, half-way, rehab)? @ -[No] Was there de-escalation of care discussed even if they declined (Discuss DNR or withdrawal of care, Hospice)? @ -[No] What co-morbidities impacted this encounter? (DM, HTN, Smoking, COPD, CAD, Cancer, CVA, ARF, Chemo, Hep., AIDS, mental health diagnosis, sleep apnea, morbid obesity)? @ -[None] Was patient admitted / discharged? Hospital course, mention meds given and route, prescriptions, significant lab abnormalities, going to OR and other pertinent info. @ -[hospital course] patient is a pleasant 64-year-old female history kidney stones presenting today for right flank pain and nausea. States feels like prior kidney stones. Emesis nonbloody nonbilious's. Requesting GI cocktail completely declined anything for pain. Also requested home Xanax. These were ordered, will order CBC CMP, lipase urinalysis and CT stone study Undiagnosed new problem with uncertain prognosis? @ -[No] Drug Therapy requiring intensive monitoring for toxicity (Heparin, Nitro, Insulin, Cardizem)? @ -[No] Were any procedures done? @ -[No] Diagnosis/symptom? @ -[default] Acute, or Chronic, or Acute on Chronic? @ -[default] Uncomplicated (without systemic symptoms) or Complicated (systemic symptoms)? @ -[default] Side effects of treatment? @ -[No] Exacerbation, Progression, or Severe Exacerbation? @ -[No] Poses a threat to life or bodily function? How? (Chest pain, [place], [place], pneumonia, PE, COPD, DKA, ARF, appy, cholecystitis, CVA, Diverticulitis, Homicidal, Suicidal, threat to staff... and all critical care pts) @ -[No] - Lab Data Result diagrams: 12/28/24 21:29 12/28/24 21:29 Lab Results 12/28/24 12/28/24 12/28/24 Range/Units 21:21 21:29 21:29 WBC 8.17 (4.50-10.00) 10*3/uL RBC 4.32 (4.10-5.20) 10*6/uL Hgb 13.7 (12.0-15.0) g/dL Hct 39.3 (37.2-46.3) % MCV 91.0 (80.0-97.0) fL MCH 31.7 (27.0-32.0) pg MCHC 34.9 (32.0-37.0) g/dL Plt Count 450 H (140-440) 10*3/uL MPV 8.9 L (9.5-12.2) fL Immature Gran % (Auto) 0.2 % Neutrophils % 48.0 % Lymphocytes % 40.8 % Monocytes % 8.6 % Eosinophils % 1.8 % Basophils % 0.6 % Immature Gran # 0.02 (0.00-0.04) 10*3/uL Neutrophils # 3.92 (1.80-7.70) 10*3/uL Lymphocytes # 3.33 (0.90-5.00) 10*3/uL Monocytes # 0.70 (0.20-1.00) 10*3/uL Eosinophils # 0.15 (0.04-0.35) 10*3/uL Basophils # 0.05 (0.00-0.10) 10*3/uL Sodium 133 L (137-145) mmol/L Potassium 3.6 (3.5-5.1) mmol/L Chloride 99 (98-107) mmol/L Carbon Dioxide 22 (22-30) mmol/L Anion Gap 12 mmol/L BUN 19 H (7-17) mg/dL Creatinine 0.54 (0.52-1.04) mg/dL Est GFR (CKD-EPI)AfAm >90 (>60 ml/min/1.73 sqM) Est GFR (CKD-EPI)NonAf >90 (>60 ml/min/1.73 sqM) Glucose 84 (74-99) mg/dL Calcium 10.4 H (8.4-10.2) mg/dL Total Bilirubin 0.6 (0.2-1.3) mg/dL AST 23 (14-36) U/L ALT 12 (4-34) U/L Alkaline Phosphatase 122 (38-126) U/L Total Protein 7.4 (6.3-8.2) g/dL Albumin 4.4 (3.5-5.0) g/dL Lipase 123 (23-300) U/L Urine Color Light Yellow Urine Appearance Clear (Clear) Urine pH 7.0 (5.0-8.0) Ur Specific [place] 1.020 (1.001-1.035) Urine Protein Negative (Negative) Urine Glucose (UA) Negative (Negative) Urine Ketones Negative (Negative) Urine Blood Small H (Negative) Urine Nitrite Negative (Negative) Urine Bilirubin Negative (Negative) Urine Urobilinogen <2.0 (<2.0) mg/dL Ur Leukocyte Esterase Negative (Negative) Urine RBC 2 (0-5) /hpf Urine WBC 2 (0-5) /hpf Ur Squamous Epith Cells 1 (0-4) /hpf Urine Mucus Rare H (None) /hpf Disposition Clinical Impression: Closed rib fracture, Nausea Disposition: HOME SELF-CARE Condition: Good Instructions (If sedation given, give patient instructions): Rib Fracture (ED), Acute Nausea and Vomiting (ED) Additional Instructions: Every disease is a spectrum and a small chance still exists that a serious condition could develop, for this reason, please monitor yourself closely for new, changing or worsening symptoms, symptoms that persist beyond or do not improve over the next 48 hours, fever, difficulty in breathing, coughing up blood or thick sputum, chest pain, abdominal pain inability to tolerate/keep down fluids or your medications, inability to follow up with outpatient providers as instructed and should you experience these symptoms or should you have any further concerns for your wellbeing please return to the ED or call 911 immediately. Please only take prescribed "GI cocktail" medications (maalox and pepcid) as needed for nausea and GI upset PLEASE call your primary care physician as soon as possible to arrange / discuss plan for followup appointment. Appointment in the next 1-3 days is strongly encouraged if possible. PLEASE let us know here before you leave if there is anything further we can do to be of any assistance. Take care and feel Better! Prescriptions: Mag Hydrox/Al Hydrox/Simeth [Maalox] 0 ml PO DAILY PRN #300 ml PRN Reason: Gi Upset Famotidine [Pepcid] 20 mg PO BID PRN 30 Days #30 tablet PRN Reason: Gi Upset Is patient prescribed a controlled substance at d/c from ED?: No Referrals: Kaycee Dinh DO [Primary Care Provider] - 1-2 days
[2024-12-28 21:28] LABS: Appearance,Urine Clear (Clear); Bilirubin,Urine Negative (Negative); Blood,Urine Small (Negative); Color,Urine Light Yellow; Glucose,Urine (UA) Negative (Negative); Ketones,Urine Negative (Negative); Leukocyte Esterase,Urine Negative (Negative); Mucus,Urine Rare /hpf; Nitrite,Urine Negative (Negative); Protein,Urine Negative (Negative); RBC,Urine 2 /hpf (0-5); Squamous Epithelial Cell,Urine 1 /hpf (0-4); Urobilinogen,Urine <2.0 mg/dL (<2.0); WBC,Urine 2 /hpf (0-5)
[2024-12-28] MEDS: MAG HYDROX/AL HYDROX/SIMETH 30 ML CUP PO STA (21:35)
[2024-12-28] MEDS: SODIUM CHLORIDE 0.9% 1,000 ML IV STA (21:35)
[2024-12-28] MEDS: FAMOTIDINE 20 MG/2 ML VIAL IV STA (21:35)
[2024-12-28] MEDS: LIDOCAINE VISCOUS 2% 15 ML CUP PO ONE (21:35)
[2024-12-28] MEDS: ONDANSETRON 4 MG/2 ML VIAL IVP STA (21:35)
[2024-12-28] MEDS: ALPRAZolam 1 MG TAB PO STA (21:50)
[2024-12-28 21:51] LABS: Basophils # (A) 0.05 10*3/uL (0.00-0.10); Basophils % (A) 0.6 %; Eosinophils # (A) 0.15 10*3/uL (0.04-0.35); Eosinophils % (A) 1.8 %; HCT 39.3 % (37.2-46.3); HGB 13.7 g/dL (12.0-15.0); Lymphocytes # (A) 3.33 10*3/uL (0.90-5.00); Lymphocytes % (A) 40.8 %; MCH 31.7 pg (27.0-32.0); MCHC 34.9 g/dL (32.0-37.0); Mean Platelet Volume 8.9 fL (9.5-12.2); Monocytes % (A) 8.6 %; Neutrophils # (A) 3.92 10*3/uL (1.80-7.70); Platelet Count 450 10*3/uL (140-440); RBC 4.32 10*6/uL (4.10-5.20); RDW 13.7 % (11.5-14.5); WBC 8.17 10*3/uL (4.50-10.00)
[2024-12-28 22:10] LABS: ALT 12 U/L (4-34); AST 23 U/L (14-36); African American GFR (CKD) >90 (>60 ml/min/1.73 sqM); Albumin 4.4 g/dL (3.5-5.0); Alkaline Phosphatase 122 U/L (38-126); Anion Gap 12 mmol/L; Blood Urea Nitrogen 19 mg/dL (7-17); Calcium 10.4 mg/dL (8.4-10.2); Carbon Dioxide 22 mmol/L (22-30); Chloride 99 mmol/L (98-107); Glucose 84 mg/dL (74-99); Lipase 123 U/L (23-300); Non-African American GFR(CKD) >90 (>60 ml/min/1.73 sqM); Potassium 3.6 mmol/L (3.5-5.1); Sodium 133 mmol/L (137-145); Total Bilirubin 0.6 mg/dL (0.2-1.3); Total Protein 7.4 g/dL (6.3-8.2)
[2024-12-28 22:28] VITALS: PULSE 68
--- NOTE | 2024-12-28 23:08 | CT ---
EXAMINATION TYPE: CT abdomen pelvis wo con CT DLP: 306.1 mGycm, Automated exposure control for dose reduction was used. DATE OF EXAM: 12/28/2024 10:07 PM COMPARISON: [facility] radiograph 12/04/2024, CT abdomen pelvis 10/25/2024 CLINICAL INDICATION:Female, 64 years old with history of right flank pain, hx kidney stones; Kidney s tones ongoing for one month, nausea, right flank pain. TECHNIQUE: Standard CT of the abdomen and pelvis without IV or oral contrast. Lack of IV or oral co ntrast limits evaluation of solid and hollow organ viscera. Coronal and sagittal reformats were perfo rmed. FINDINGS: LOWER CHEST: The visualized lung bases are clear. Healing posterior right 10th and 11th rib fractures with callus formation. Fracture lines are still visible. ABDOMEN LIVER: Unremarkable noncontrast appearance GALLBLADDER AND BILE DUCTS: Unremarkable noncontrast appearance PANCREAS: Similar calcification within the pancreatic head. SPLEEN: Punctate calcification granuloma. ADRENAL GLANDS: Unremarkable noncontrast appearance. KIDNEYS AND URETERS: No evidence of hydronephrosis or nonobstructive right renal upper pole 4 mm calc ulus. Additional nonobstructive right renal upper pole 2 mm calculus. Nonobstructive left renal upper pole 3 mm calculus. No definitive ureteral calculus. No perinephric fat stranding. PELVIS BLADDER: Incompletely distended but grossly unremarkable. REPRODUCTIVE: Unremarkable noncontrast appearance. ABDOMEN & PELVIS STOMACH AND BOWEL: Small hiatal hernia, duodenum is unremarkable. Hyperdense material identified with in the terminal ileum and ascending colon. No focal bowel wall thickening or surrounding inflammatory changes. The appendix is not identified. No significant inflammatory changes within the right lower quadrant. No focal bowel wall thickening or surrounding inflammatory changes. No evidence of bowel ob struction. PERITONEUM: No evidence of pneumoperitoneum or free fluid. VASCULATURE: Minimal atherosclerotic calcifications are present throughout the abdominal aorta and it s branches. No evidence of aortic aneurysm. Couple stable pelvic phleboliths. MUSCULOSKELETAL: No acute osseous abnormalities. Healing posterior right 10th and 11th rib fractures with callus formation. Fracture lines are still visible. Minimal grade 1 anterolisthesis of L4 and L5 . Disc bulges at L4-L5 and L5-S1 resulting in at least mild spinal canal stenosis. LYMPH NODES: No gross evidence for lymphadenopathy. SOFT TISSUE/ABDOMINAL WALL: Unremarkable IMPRESSION: 1. No evidence for obstruction uropathy. 2. Nonobstructive bilateral renal calculi. 3. Healing posterior right 10th and 11th rib fractures with callus formation. Fracture lines are stil l visible. [facility], , 12/28/2024 11:06 PM
[2024-12-29] MEDS: ONDANSETRON 4 MG ODT STARTER PACK 2 TAB BTL PO STA (00:22)
[2024-12-29 00:26] VITALS: BP 122/66
== END 2024-12-29 00:36 | disposition home or self-care (01) ==
LOC: EC 20:57
DX: S22.41XA Multiple fractures of ribs, right side, initial encounter for closed fracture (principal); R11.2 Nausea with vomiting, unspecified; Z88.0 Allergy status to penicillin; Z88.8 Allergy status to other drugs, medicaments and biological substances; Z87.891 Personal history of nicotine dependence; X58.XXXA Exposure to other specified factors, initial encounter
CPT/HCPCS: 36415; 80053; 83690; 85025; 81001; 74176; 99285; 96374; 96375; 96361 ×3; J2405; J1308

== ENCOUNTER 2025-02-08 08:19 | Emergency (ER) | payer MEDICARE, OTHER ==
[2025-02-08 09:05] LABS: Basophils # (A) 0.03 10*3/uL (0.00-0.10); Basophils % (A) 0.5 %; Eosinophils # (A) 0.12 10*3/uL (0.04-0.35); Eosinophils % (A) 1.9 %; HCT 40.3 % (37.2-46.3); HGB 13.8 g/dL (12.0-15.0); Lymphocytes # (A) 1.75 10*3/uL (0.90-5.00); Lymphocytes % (A) 28.2 %; MCH 31.1 pg (27.0-32.0); MCHC 34.2 g/dL (32.0-37.0); MCV 90.8 fL (80.0-97.0); Mean Platelet Volume 9.7 fL (9.5-12.2); Monocytes # (A) 0.39 10*3/uL (0.20-1.00); Monocytes % (A) 6.3 %; Neutrophils % (A) 62.9 %; Platelet Count 258 10*3/uL (140-440); RBC 4.44 10*6/uL (4.10-5.20); RDW 12.6 % (11.5-14.5)
[2025-02-08 09:20] LABS: ALT 22 U/L (4-34); Acetaminophen <10.0 ug/mL; African American GFR (CKD) >90 (>60 ml/min/1.73 sqM); Albumin 4.6 g/dL (3.5-5.0); Alcohol <10 mg/dL; Anion Gap 10 mmol/L; Blood Urea Nitrogen 16 mg/dL (7-17); Calcium 9.8 mg/dL (8.4-10.2); Carbon Dioxide 25 mmol/L (22-30); Chloride 104 mmol/L (98-107); Glucose 84 mg/dL (74-99); Non-African American GFR(CKD) >90 (>60 ml/min/1.73 sqM); Salicylate <1.0 mg/dL; Sodium 139 mmol/L (137-145)
[2025-02-08 09:28] LABS: AST 31 U/L (14-36); Alkaline Phosphatase 116 U/L (38-126); Potassium 3.9 mmol/L (3.5-5.1); Total Protein 7.8 g/dL (6.3-8.2)
--- NOTE | 2025-02-08 10:33 | ED ---
Psych HPI - General Chief Complaint: Psychiatric Symptoms Stated Complaint: Psych Time Seen by Provider: 02/08/25 08:30 Source: EMS Mode of arrival: EMS - History of Present Illness Initial Comments: 64-year-old female with past medical history of depression, anxiety, bipolar 1 who presents to the emergency department with hallucinations and erratic behavior. Patient lives with a friend. The friend states that yesterday she started talking to herself and talking to people that are not present. She has had erratic and agitated behavior. The friend is bedbound and therefore fears for her safety. Admits that the patient has not been taking her medications as instructed. She is supposed to be on several medications but they are all coalesced together because the patient puts her cigarette ashes in with her pills. They feel that the mental health is deteriorating due to lack of medications. Patient has been hospitalized multiple times for the same compl aints. When I speak to the patient she states that she is here for chronic nausea however she has nonsensical speech. No report of any injuries. HPI is limited because of the patient's current condition - Related Data Home Medications Medication Instructions Recorded Confirmed Zolpidem [Ambien] 10 mg PO HS 03/22/24 02/08/25 Benztropine Mesylate [Cogentin] 1 mg PO HS 10/22/24 02/08/25 QUEtiapine FUMARATE [SEROquel] 25 mg PO HS 10/22/24 02/08/25 ALPRAZolam [Xanax] 1 mg PO DAILY PRN 02/08/25 02/08/25 Famotidine [Pepcid] 20 mg PO DAILY 02/08/25 02/08/25 Maalox/Lidocaine Viscous 2% 7 ml PO BID PRN 02/08/25 02/08/25 OXcarbazepine 300 mg PO HS 02/08/25 02/08/25 OXcarbazepine [Trileptal] 600 mg PO QAM 02/08/25 02/08/25 Oxybutynin ER [Ditropan XL] 10 mg PO DAILY 02/08/25 02/08/25 Tamsulosin [Flomax] 0.4 mg PO DAILY 02/08/25 02/08/25 buPROPion SR [Wellbutrin SR] 150 mg PO BID 02/08/25 02/08/25 Allergies Allergy/AdvReac Type Severity Reaction Status Date / Time Penicillins Allergy Unknown Rash/Hives/Itching Verified 02/08/25 12:53 all over body clonidine AdvReac "Black Out" Verified 02/08/25 12:53 Review of Systems ROS Statement: Those systems with pertinent positive or pertinent negative responses have been documented in the HPI. ROS Other: All systems not noted in ROS Statement are negative. Past Medical History Past Medical History: Hyperlipidemia, Hypertension Additional Past Medical History / Comment(s): occ migraines, hemorrhoids, degenerative disks L4 and L5. Bipolar History of Any Multi-Drug Resistant Organisms: None Reported Past Surgical History: Appendectomy, Section, Orthopedic Surgery Additional Past Surgical History / Comment(s): LEFT ARM (POST TRAUMATIC INJURY) reattached, RIGHT FOOT X3, LEFT KNEE ARTHROSCOPY, left oophorectomy, hemorroidectomy Past Anesthesia/Blood Transfusion Reactions: No Reported Reaction Past Psychological History: Anxiety, Bipolar, Depression, Panic Disorder Smoking Status: Former smoker Past Alcohol Use History: None Reported Past Drug Use History: None Reported - Past Family History Mother Family Medical History: No Reported History General Exam Limitations: altered mental status General appearance: alert Head exam: Present: atraumatic, normocephalic, normal inspection Eye exam: Present: normal appearance, PERRL, EOMI. Absent: scleral icterus, conjunctival injection, periorbital swelling ENT exam: Present: normal exam, mucous membranes moist Neck exam: Present: normal inspection. Absent: tenderness, meningismus, lymphadenopathy Respiratory exam: Present: normal lung sounds bilaterally. Absent: respiratory distress, wheezes, rales, rhonchi, stridor Cardiovascular Exam: Present: regular rate, normal rhythm, normal heart sounds. Absent: systolic murmur, diastolic murmur, rubs, gallop, clicks GI/Abdominal exam: Present: soft, normal bowel sounds. Absent: distended, tenderness, guarding, rebound, rigid Extremities exam: Present: normal inspection, full ROM, normal capillary refill. Absent: tenderness, pedal edema, joint swelling, calf tenderness Back exam: Present: normal inspection Neurological exam: Present: alert, oriented X3, CN II-XII intact Psychiatric exam: Present: other (Patient is hallucinating. Speaking to people that are not in the room) Skin exam: Present: warm, dry, intact, normal color. Absent: rash Course Vital Signs 02/08/25 02/08/25 02/09/25 08:27 18:14 05:35 Temperature 97.8 F Pulse Rate 87 79 72 Respiratory 20 18 16 Rate Blood Pressure 157/108 166/83 165/103 O2 Sat by Pulse 97 99 99 Oximetry 02/09/25 02/09/25 02/09/25 08:43 10:45 16:21 Temperature 97.5 F L Pulse Rate 72 86 73 Respiratory 18 18 20 Rate Blood Pressure 152/91 147/78 O2 Sat by Pulse 100 97 100 Oximetry 02/10/25 02/10/25 02/10/25 08:19 14:09 15:05 Temperature 97.8 F Pulse Rate 98 87 86 Respiratory 18 18 18 Rate Blood Pressure 157/126 141/84 148/93 O2 Sat by Pulse 100 98 99 Oximetry Medical Decision Making - Medical Decision Making Was pt. sent in by a medical professional or institution (, PA, NETWORK ARCHITECT MANAGER, urgent care, hospital, or jail...) When possible be specific @ -No Did you speak to anyone other than the patient for history (EMS, parent, family, police, friend...)? What history was obtained from this source @ -Spoke with EMS for history Did you review nursing and triage notes (agree or disagree)? Why? @ -I reviewed and agree with nursing and triage notes Were old charts reviewed (outside hosp., previous admission, EMS record, old EKG, old radiological studies, urgent care reports/EKG's, jail records)? Report findings @ -No old charts were reviewed Differential Diagnosis (chest pain, altered mental status, abdominal pain women, abdominal pain men, vaginal bleeding, weakness, fever, dyspnea, syncope, heada lakia, dizziness, GI bleed, back pain, seizure, CVA, palpatations, mental health, musculoskeletal)? @ -Differential Mental Health Depression, anxiety, bipolar, psychosis, schizophrenia, borderline personality, situational depression, adjustment disorder, behavioral disorder, brain tumor, malingering, substance abuse, encephalopathy, medication reaction, dementia, hypothyroidism, degenerative neurologic disorder, lupus.... This is not meant to be all-inclusive list EKG interpreted by me (3pts min.). @ -Yes and demonstrates sinus rhythm with rate of 86. SC interval 175. QRS 91. QTc of 411. No acute ST segment elevations or depressions X-rays interpreted by me (1pt min.). @ -None done CT interpreted by me (1pt min.). @ -None done U/S interpreted by me (1pt. min.). @ -None done What testing was considered but not performed or refused? (CT, X-rays, U/S, labs)? Why? @ -None What meds were considered but not given or refused? Why? @ -None Did you discuss the management of the patient with other professionals (professionals i.e. , PA, NETWORK ARCHITECT MANAGER, lab, RT, psych nurse, perinatal social worker, heel seat fitter machine, teacher, airconditioning drafting officer, rehabilitation caseworker)? Give summary @ -Spoke with the EPS nurse who does evaluate the patient Was smoking cessation discussed for >3mins.? @ -No Was critical care preformed (if so, how long)? @ -No Were there social determinants of health that impacted care today? How? (Home lessness, low income, unemployed, alcoholism, drug addiction, transportation, low edu. Level, literacy, decrease access to med. care, detention, rehab)? @ -No Was there de-escalation of care discussed even if they declined (Discuss DNR or withdrawal of care, Hospice)? DNR status @ -No What co-morbidities impacted this encounter? (DM, HTN, Smoking, COPD, CAD, Cancer, CVA, ARF, Chemo, Hep., AIDS, mental health diagnosis, sleep apnea, morbid obesity)? @ -None Was patient admitted / discharged? Hospital course, mention meds given and route, prescriptions, significant lab abnormalities, going to OR and other pertinent info. @ -Upon arrival patient seen and evaluated in room 11. Thorough history and physical exam was performed. Patient is hallucinating. She is made medically clear. Patient is evaluated by EPS who does feel that she requires transfer to a [facility] facility. Certification is filled out by myself. Patient will be transferred to a psych facility in stable condition Undiagnosed new problem with uncertain prognosis? @ -No Drug Therapy requiring intensive monitoring for toxicity (Heparin, Nitro, Insulin, Cardizem)? @ -No Were any procedures done? @ -No Diagnosis/symptom? @ -Acute hallucinations, psychosis Acute, or Chronic, or Acute on Chronic? @ -Acute Uncomplicated (without systemic symptoms) or Complicated (systemic symptoms)? @ -Complicated Side effects of treatment? @ -No Exacerbation, Progression, or Severe Exacerbation? @ -No Poses a threat to life or bodily function? How? (Chest pain, USA, LA, pneumonia, PE, COPD, DKA, ARF, appy, cholecystitis, CVA, Diverticulitis, Homicidal, Suicidal, threat to staff... and all critical care pts) @ -Yes as patient has no insight - Lab Data Result diagrams: 02/08/25 08:58 02/08/25 08:58 Lab Results 02/08/25 02/08/25 02/08/25 Range/Units 08:58 08:58 09:21 WBC 6.20 (4.50-10.00) 10*3/uL RBC 4.44 (4.10-5.20) 10*6/uL Hgb 13.8 (12.0-15.0) g/dL Hct 40.3 (37.2-46.3) % MCV 90.8 (80.0-97.0) fL MCH 31.1 (27.0-32.0) pg MCHC 34.2 (32.0-37.0) g/dL Plt Count 258 (140-440) 10*3/uL MPV 9.7 (9.5-12.2) fL Immature Gran % (Auto) 0.2 % Neutrophils % 62.9 % Lymphocytes % 28.2 % Monocytes % 6.3 % Eosinophils % 1.9 % Basophils % 0.5 % Immature Gran # 0.01 (0.00-0.04) 10*3/uL Neutrophils # 3.90 (1.80-7.70) 10*3/uL Lymphocytes # 1.75 (0.90-5.00) 10*3/uL Monocytes # 0.39 (0.20-1.00) 10*3/uL Eosinophils # 0.12 (0.04-0.35) 10*3/uL Basophils # 0.03 (0.00-0.10) 10*3/uL Sodium 139 (137-145) mmol/L Potassium 3.9 (3.5-5.1) mmol/L Chloride 104 (98-107) mmol/L Carbon Dioxide 25 (22-30) mmol/L Anion Gap 10 mmol/L BUN 16 (7-17) mg/dL Creatinine 0.65 (0.52-1.04) mg/dL Est GFR (CKD-EPI)AfAm >90 (>60 ml/min/1.73 sqM) Est GFR (CKD-EPI)NonAf >90 (>60 ml/min/1.73 sqM) Glucose 84 (74-99) mg/dL Calcium 9.8 (8.4-10.2) mg/dL Total Bilirubin 1.0 (0.2-1.3) mg/dL AST 31 (14-36) U/L ALT 22 (4-34) U/L Alkaline Phosphatase 116 (38-126) U/L Total Protein 7.8 (6.3-8.2) g/dL Albumin 4.6 (3.5-5.0) g/dL Urine Color Urine Appearance (Clear) Urine pH (5.0-8.0) Ur Specific Parker (1.001-1.035) Urine Protein (Negative) Urine Glucose (UA) (Negative) Urine Ketones (Negative) Urine Blood (Negative) Urine Nitrite (Negative) Urine Bilirubin (Negative) Urine Urobilinogen (<2.0) mg/dL Ur Leukocyte Esterase (Negative) Urine RBC (0-5) /hpf Urine WBC (0-5) /hpf Ur Squamous Epith Cells (0-4) /hpf Urine Mucus (None) /hpf Salicylates <1.0 mg/dL Urine Opiates Screen Not Detected (NotDetected) Ur Oxycodone Screen Not Detected (NotDetected) Urine Methadone Screen Not Detected (NotDetected) Acetaminophen <10.0 ug/mL Ur Barbiturates Screen Not Detected (NotDetected) U Tricyclic Antidepress Not Detected (NotDetected) Ur Phencyclidine Scrn Not Detected (NotDetected) Ur Amphetamines Screen Not Detected (NotDetected) U Methamphetamines Scrn Not Detected (NotDetected) U Benzodiazepines Scrn Detected H (NotDetected) Urine Cocaine Screen Not Detected (NotDetected) U Marijuana (THC) Screen Not Detected (NotDetected) Serum Alcohol <10 mg/dL SARS-CoV-2 (PCR) (Not Detectd) 02/08/25 02/08/25 Range/Units 09:21 16:41 WBC (4.50-10.00) 10*3/uL RBC (4.10-5.20) 10*6/uL Hgb (12.0-15.0) g/dL Hct (37.2-46.3) % MCV (80.0-97.0) fL MCH (27.0-32.0) pg MCHC (32.0-37.0) g/dL Plt Count (140-440) 10*3/uL MPV (9.5-12.2) fL Immature Gran % (Auto) % Neutrophils % % Lymphocytes % % Monocytes % % Eosinophils % % Basophils % % Immature Gran # (0.00-0.04) 10*3/uL Neutrophils # (1.80-7.70) 10*3/uL Lymphocytes # (0.90-5.00) 10*3/uL Monocytes # (0.20-1.00) 10*3/uL Eosinophils # (0.04-0.35) 10*3/uL Basophils # (0.00-0.10) 10*3/uL Sodium (137-145) mmol/L Potassium (3.5-5.1) mmol/L Chloride (98-107) mmol/L Carbon Dioxide (22-30) mmol/L Anion Gap mmol/L BUN (7-17) mg/dL Creatinine (0.52-1.04) mg/dL Est GFR (CKD-EPI)AfAm (>60 ml/min/1.73 sqM) Est GFR (CKD-EPI)NonAf (>60 ml/min/1.73 sqM) Glucose (74-99) mg/dL Calcium (8.4-10.2) mg/dL Total Bilirubin (0.2-1.3) mg/dL AST (14-36) U/L ALT (4-34) U/L Alkaline Phosphatase (38-126) U/L Total Protein (6.3-8.2) g/dL Albumin (3.5-5.0) g/dL Urine Color Colorless Urine Appearance Clear (Clear) Urine pH 6.0 (5.0-8.0) Ur Specific Parker 1.008 (1.001-1.035) Urine Protein Negative (Negative) Urine Glucose (UA) Negative (Negative) Urine Ketones Negative (Negative) Urine Blood Trace H (Negative) Urine Nitrite Negative (Negative) Urine Bilirubin Negative (Negative) Urine Urobilinogen <2.0 (<2.0) mg/dL Ur Leukocyte Esterase Negative (Negative) Urine RBC 1 (0-5) /hpf Urine WBC <1 (0-5) /hpf Ur Squamous Epith Cells 1 (0-4) /hpf Urine Mucus Rare H (None) /hpf Salicylates mg/dL Urine Opiates Screen (NotDetected) Ur Oxycodone Screen (NotDetected) Urine Methadone Screen (NotDetected) Acetaminophen ug/mL Ur Barbiturates Screen (NotDetected) U Tricyclic Antidepress (NotDetected) Ur Phencyclidine Scrn (NotDetected) Ur Amphetamines Screen (NotDetected) U Methamphetamines Scrn (NotDetected) U Benzodiazepines Scrn (NotDetected) Urine Cocaine Screen (NotDetected) U Marijuana (THC) Screen (NotDetected) Serum Alcohol mg/dL SARS-CoV-2 (PCR) Not Detected (Not Detectd) Disposition Clinical Impression: Psychosis Disposition: TRANSFER TO PSYCH HOSP/UNIT Condition: Stable Referrals: Kaycee Dinh DO [Primary Care Provider] - 1-2 days
[2025-02-08 10:37] LABS: Amphetamine Screen,Urine Not Detected (NotDetected); Barbiturate Screen,Urine Not Detected (NotDetected); Benzodiazepines Screen,Urine Detected (NotDetected); Cocaine Screen,Urine Not Detected (NotDetected); Methadone Screen, Urine Not Detected (NotDetected); Opiate Screen,Urine Not Detected (NotDetected); Oxycodone Screen, Urine Not Detected (NotDetected); Phencyclidine Screen,Urine Not Detected (NotDetected); Tricyclic Antidepressant,Urine Not Detected (NotDetected); Urn Cannabinoid Scrn Not Detected (NotDetected)
[2025-02-08 10:38] LABS: Appearance,Urine Clear (Clear); Bilirubin,Urine Negative (Negative); Blood,Urine Trace (Negative); Color,Urine Colorless; Glucose,Urine (UA) Negative (Negative); Ketones,Urine Negative (Negative); Leukocyte Esterase,Urine Negative (Negative); Mucus,Urine Rare /hpf; Nitrite,Urine Negative (Negative); Protein,Urine Negative (Negative); RBC,Urine 1 /hpf (0-5); Specific Gravity,Urine 1.008 (1.001-1.035); Squamous Epithelial Cell,Urine 1 /hpf (0-4); Urobilinogen,Urine <2.0 mg/dL (<2.0); WBC,Urine <1 /hpf (0-5)
[2025-02-08] MEDS: ONDANSETRON ODT 4 MG TAB PO STA (12:53)
[2025-02-08] MEDS: ONDANSETRON 4 MG/2 ML VIAL IVP STA (13:49)
[2025-02-08] MEDS: ACETAMINOPHEN TAB 500 MG TAB PO STA (16:34)
[2025-02-08] MEDS: buPROPion SR 150 MG TABLET.ER PO SCH (20:25)
[2025-02-08] MEDS: OXcarbazepine 300 MG TAB PO SCH (20:26)
[2025-02-08] MEDS: QUEtiapine 25 MG TAB PO SCH (20:26)
[2025-02-08] MEDS: BENZTROPINE MESYLATE 1 MG TAB PO SCH (20:26)
[2025-02-08] MEDS: ALPRAZolam 1 MG TAB PO PRN (20:32)
[2025-02-08] MEDS: ZOLPIDEM 5 MG TAB PO STA (23:17)
[2025-02-09] MEDS: TAMSULOSIN 0.4 MG CAP.ER.24H PO SCH (08:48)
[2025-02-09] MEDS: FAMOTIDINE 20 MG TAB PO SCH (08:49)
[2025-02-09] MEDS: OXcarbazepine 300 MG TAB PO SCH (08:50)
[2025-02-09] MEDS: OXYBUTYNIN 10 MG TAB.ER.24 PO SCH (10:21)
[2025-02-09] MEDS: HYDROcodone/APAP 5-325MG 1 EACH TAB PO STA (16:42)
[2025-02-09] MEDS: MAG HYDROX/AL HYDROX/SIMETH 30 ML CUP PO PRN (22:12)
[2025-02-10 08:21] VITALS: RESP 18
[2025-02-10] MEDS: HYDROcodone/APAP 5-325MG 1 EACH TAB PO PRN (08:53)
[2025-02-10] MEDS ORDERED: IBUPROFEN 600 MG TAB PO PRN (12:54)
[2025-02-10] MEDS ORDERED: IBUPROFEN 600 MG TAB PO SCH (13:00)
[2025-02-10 14:09] VITALS: TEMP 97.8
[2025-02-10 15:06] VITALS: BP 148/93; PULSE 86
== END 2025-02-10 15:08 ==
LOC: EC 08:19
DX: F29 Unspecified psychosis not due to a substance or known physiological condition (principal); Z74.01 Bed confinement status; Z87.891 Personal history of nicotine dependence; Z88.0 Allergy status to penicillin; Z88.8 Allergy status to other drugs, medicaments and biological substances
CPT/HCPCS: 82075; 36415; 93005; 80053; 85025; 81001; 80306; 80143; 87635; 80179; 99285; G0480; S0106 ×3; 80320